=== PATIENT | male | born 1955 | race Caucasian/White ===

== ENCOUNTER 2019-09-11 | Day surgery (SDC) | payer MEDICAID, SELFPAY ==
[2019-09-10 10:40] VITALS: BMI 22.1
== END 2019-09-11 23:00 | disposition home or self-care (01) ==
LOC: GILAB 03-17 13:31
PROVIDERS: Family Provider Internal Medicine; PCP Nurse Practitioner; Visit Provider Surgery
DX: Z53.9 Procedure and treatment not carried out, unspecified reason (principal)
CPT/HCPCS: J2704; J7030

== ENCOUNTER 2019-10-13 13:29 | Emergency (ER) | payer OTHER, MEDICAID, SELFPAY ==
[2019-10-13 13:43] VITALS: BP 137/83; PULSE 60; RESP 18; TEMP 36.6; O2SAT 90; BMI 20.4
--- NOTE | 2019-10-13 14:56 | ED_ITS ---
HPI - Skin/Abscess/Foreign Bdy General: Chief complaint: General Medical Stated complaint: genital itching post tick bite Time Seen by Provider: 10/13/19 14:52 Source: patient Mode of arrival: ambulatory Limitations: no limitations History of Present Illness: HPI narrative: Patient is a 64-year-old male who presents to ED today with complaints of a tick bite to his scrotum. Patient noticed about yesterday days ago there was a tick attached to his left lower leg that he picked off and then lost it in the bed. He reports this morning when he awoke he found the tick and it was now attached to his scrotum. He states he picked it off and burnt it but is now concerned because the area has a knot . Onset (ago): hour(s) Tetanus up to date: yes Location: genitals Severity: mild Quality: pruritic Relieving factors: none Exacerbating factors: none Context: other (tick bite) Associated symptoms: Reports no associated symptoms; Deny chills or fever(s) Treatments prior to arrival: none Review of Systems Const: Denies: fever, chills, body aches, fatigue or malaise : Denies: genital pain, testicular pain, testicular mass or scrotal swelling Musc: Denies: neck pain or back pain Skin/Breast: Reports: other ( knot to scrotum ); Denies: rash Neuro: Denies: headache PFS ED PFSH: Social History (Updated 08/13/19 @ 09:34 by Yudi Reyna RN) Smoking and tobacco status: current every day smoker Physical Exam Const: COMMON NORMALS: no apparent distress, oriented x3, no limitations and alert GENERAL APPEARANCE: disheveled : OTHER: pt has a very small area of induration to L inferior scrotum with small bite abdifatah consistent with tick bite; there is no erythema/warmth; no fluctuance/drainage; no inguinal lymphadenopathy noted Neuro: COMMON NORMALS: oriented x3 SENSORIUM/ORIENTATION: Yes alert Course Vital Signs: Vital signs: Vital Signs Temperature 98.4 F 10/13/19 15:02 Pulse Rate 86 10/13/19 15:02 Respiratory Rate 16 10/13/19 15:02 Blood Pressure 137/83 10/13/19 13:43 Pulse Oximetry 96 10/13/19 15:02 Discharge Plan Discharge Patient Disposition: Home, Self-Care Clinical Impression: Tick bite of scrotum Qualifiers: Encounter type: initial encounter Qualified Code(s): S30.863A - Insect bite (nonvenomous) of scrotum and testes, initial encounter Condition: Stable Prescriptions: No Action nicotine 14 mg/24 hr Patch 24 Hour 1 patch TRANSDERMAL DAILY RF: 0 albuterol sulfate 2.5 mg /3 mL (0.083 %) Solution For Nebulization 2.5 mg INHALATION Q4H PRN (Reason: Cough) RF: 0 citalopram 40 mg Tablet 20 mg PO DAILY RF: 0 Miralax 17 gram Powder In Packet 17 g PO DAILY PRN (Reason: Constipation) RF: 0 Carafate 1 gram Tablet 1 g PO BID RF: 0 sumatriptan succinate 50 mg Tablet 50 mg PO DAILY RF: 0 trazodone 100 mg Tablet 100 mg PO DAILY RF: 0 omeprazole 20 mg Capsule,Delayed Release(Dr/Ec) 20 mg PO DAILY RF: 0 albuterol sulfate 90 mcg/actuation Hfa Aerosol Inhaler 1 inh INHALATION QID PRN (Reason: Cough) RF: 0 bupropion HCl 150 mg Tablet Extended Release 24 Hr 150 mg PO QAM RF: 0 topiramate 50 mg Tablet 50 mg PO BID RF: 0 Discharge Orders: Discharge Order (Routine); Ordered 10/13/19 Ordered By: Patti Alvarado Referrals: Freddy Wade [Family Provider] - Discharge Diet: Usual diet Discharge Activity: Resume usual activity Patient Instructions: Tick Bites, Tick Bite (ED) Discharge Date/Time: 10/13/19 15:03 Coding Level of Care Code ED Livestock Auctioneer for Oli Moise Exam Problem Focused
[2019-10-13 15:02] VITALS: PULSE 86; RESP 16; TEMP 36.9; O2SAT 96
== END 2019-10-13 15:03 | disposition home or self-care (01) ==
PROVIDERS: Emergency Provider Physician Assistant; Family Provider Internal Medicine
DX: S30.863A Insect bite (nonvenomous) of scrotum and testes, initial encounter (principal); F17.200 Nicotine dependence, unspecified, uncomplicated; W57.XXXA Bitten or stung by nonvenomous insect and other nonvenomous arthropods, initial encounter
CPT/HCPCS: 12345; 99281

== ENCOUNTER 2019-10-30 18:39 | Inpatient (IN) | payer OTHER, MEDICAID, SELFPAY ==
[2019-10-30] VITALS (18 sets, daily range): BP systolic 94–178; BP diastolic 46–96; PULSE 82–118; RESP 16–36; TEMP 37–37.1; O2SAT 85–100
--- NOTE | 2019-10-30 18:47 | XR_ITS ---
WS: [id number] PORTABLE CHEST HISTORY: cough COMPARISON: 06/15/2019 Hyperinflated lungs with chronic emphysema. Pulmonary vasculature is normal. Blunting of the costophr enic angles bilaterally. There is very subtle haziness and increasing opacification in the central RI GHT lung. Cardiac size: Normal. Mediastinum/Aorta: Normal mediastinum. Chronic deformity of the ribs in the mid LEFT thorax. XR/XR chest 1V portable [id number] IMPRESSION: 1. Chronic emphysema. 2. Suspect developing pneumonitis or pneumonia central RIGHT lung.
--- NOTE | 2019-10-30 18:53 | W.ED.SOB ---
HPI - SOB/Dyspnea General: Chief Complaint: Shortness of Breath/Dyspnea Stated Complaint: sob Time Seen by Provider: 10/30/19 18:44 History of Present Illness: HPI Narrative: Naren Pritchard is a 64-year-old male who comes in severe respiratory distress. He is unable to provide much history. When asked what he feels is causing his shortness of breath he shouts COPD and pneumonia. All further history is taken from old charts. Review of Systems General: Reports: ROS unobtainable due to medical condition (Respiratory distress) PFS ED PFSH: Medical History Asthma COPD (chronic obstructive pulmonary disease) Depression GERD (gastroesophageal reflux disease) Hepatitis Hypertension Peptic ulcer disease Surgical History Hx of appendectomy Social History Smoking and tobacco status: current every day smoker Physical Exam Const: COMMON NORMALS: oriented x3 EXAM LIMITATIONS: no altered mental status GENERAL APPEARANCE: cooperative, well kempt, in distress, ill appearing and frail appearing HENMT: COMMON NORMALS: normocephalic, head/scalp atraumatic, hearing grossly normal bilaterally, external ears normal, EAC's normal, external nose normal and moist oral mucous membranes HEAD & SCALP: normal to inspection, normocephalic and atraumatic FACE & SINUS: normal facial exam and face symmetric NOSE: external nose normal and nares normal EXTERNAL EAR: Yes external ears normal EXTERNAL AUDITORY CANAL: EAC's normal MOUTH: oral and palatal mucosa normal and tongue normal Eye: COMMON NORMALS: PERRL, EOMs intact bilaterally, conjunctivae normal and no scleral icterus GENERAL EYE: normal appearance of both eyes and normal light reflex CONJUNCTIVA: Yes conjunctivae normal SCLERA: sclerae normal CORNEA: Yes corneas normal PUPIL: Yes PERRL DIRECT OPHTHALMOSCOPY: Yes normal light reflex Neck/C-Spine: COMMON NORMALS: full ROM, no lymphadenopathy, supple, no meningeal signs and no JVD GENERAL: Yes normal visual inspection and Yes trachea midline CERVICAL SPINE: Yes cervical ROM normal Chest: COMMONS NORMALS: inspection of chest normal and palpation of chest normal Resp: EFFORT & INSPECTION: Yes respiratory distress, Yes grunting, Yes actively coughing, Yes uses accessory muscles and Yes audible wheezes AUSCULTATION: rhonchi, wheezes and diminished lung sounds Cardio: COMMON NORMALS: no JVD, regular rhythm, S1 normal heart sound, S2 normal heart sound, no gallops, no clicks, no murmurs and no rub JUGULAR VENOUS DISTENTION: no JVD RATE: tachycardic RHYTHM: regular rhythm HEART SOUNDS: S1 normal and S2 normal GI: COMMON NORMALS: soft to palpation, non-tender, no hepatosplenomegaly and no masses INSPECTION: Yes normal to inspection PALPATION: Yes soft and Yes no hepatosplenomegaly : COMMON NORMALS: Yes no CVA tenderness BLADDER/KIDNEY EXAM: Yes no CVA tenderness Back/Pelvis: COMMON NORMALS: no CVA tenderness, thoracic and lumbar spine normal to inspection, no thoracic nor lumbar tenderness and thoraco-lumbar ROM normal Extremity: COMMON NORMALS: normal to inspection, full ROM, normal capillary refill, no joint enlargement, no clubbing, cyanosis or edema and no calf tenderness Neuro: COMMON NORMALS: oriented x3, CN's II-XII intact bilaterally, moves all extremities, no focal motor deficits and no sensory deficits noted MENINGEAL SIGNS: Yes no meningeal signs Psych: COMMON NORMALS: mental status grossly normal, thought process normal, cooperative, affect normal, speech normal and activity/motor behavior normal APPEARANCE: Yes well kempt SPEECH: Yes normal speech THOUGHT PROCESS: normal thought process Skin: COMMON NORMALS: no rashes or lesions noted, skin turgor normal, no jaundice, no petechiae and no mottling GENERAL SKIN EXAM: no rashes or lesions noted and turgor normal Course Vital Signs: Vital signs: Vital Signs Temperature 98.6 F 10/30/19 18:42 Pulse Rate 88 10/30/19 20:30 Respiratory Rate 21 H 10/30/19 20:30 Blood Pressure 112/46 10/30/19 20:30 Pulse Oximetry 97 10/30/19 20:30 MDM - SOB/Dyspnea MDM Narrative: Medical decision making narrative: Mr. Pritchard is a 64-year-old male who came in in respiratory distress. He is doing much better now on BiPAP. I believe he will need BiPAP for a few more hours to completely correct his acidosis. He agrees to admission. I reviewed the case with Dr. Pham who is agreeable to admission. The patient will be kept on BiPAP admitted to the [facility] floor. Further care be dictated by Dr. Pham. Lab Data: Attestation: I reviewed the patient's lab results. Labs: Lab Results 10/30/19 10/30/19 10/30/19 Range/Units 18:44 18:53 18:53 WBC 8.7 (4.0-10.0) 10^3/ uL RBC 5.07 (4.1-5.3) 10^6/u L Hgb 14.7 (11.7-16.6) g/dL Hct 46.9 (42.0-52.0) % MCV 92.5 (80-94) fL MCH 29.0 (28.0-34.0) pg MCHC 31.3 (30.0-36.0) g/dL RDW 13.0 (12.1-15.1) % Plt Count 285 (130-400) 10^3/c mm MPV 9.7 (7.4-10.4) fL Neut % (Auto) 66.4 % Lymph % (Auto) 18.6 % [place] % (Auto) 12.0 % Eos % (Auto) 1.7 % Baso % (Auto) 1.0 % Neut # (Auto) 5.8 (1.8-7.7) 10^3/u L Lymph # (Auto) 1.6 (0.8-4.8) 10^3/u L [place] # (Auto) 1.0 H (0.2-0.9) 10^3/u L Eos # (Auto) 0.2 (0.0-0.8) 10^3/u L Baso # (Auto) 0.1 (0.0-0.1) 10^3/u L Nucleated RBC % (a uto) 0 % Nucleated RBCs # 0.0 /100WBC Specimen Type Arterial Sample Site Radial, right ABG pH 7.22 L (7.35-7.45) ABG pCO2 55.6 H (35-45) mmHg ABG pO2 423.0 H* (80.0-100.0) mmH g ABG HCO3 22.8 (22-26) mmol/L ABG Base Excess -5.7 L (-2.0-2.0) mmol/ L Italo Test Pos Hematocrit 45.7 (42-52) % O2 Delivery Device Nrb O2 Liters/Min 15.0 % FiO2 % PEEP cmH20 Pressure Support cmH2O Simplex Operator ID monro Sodium 140 (136-145) mmol/L Potassium 4.0 (3.5-5.1) mmol/L Chloride 102 (98-107) mmol/L Carbon Dioxide 25 (22-29) mmol/L Anion Gap 17.0 (5-19) BUN 14 (8-23) mg/dL Creatinine 1.2 (0.7-1.2) mg/dL GFR Calculation 61.1 L (90-130) mL/min Glucose 125 H (65-115) mg/dL Calculated Osmolal ity 288 (285-295) mOsm/k g Lactic Acid (0.5-2.2) mmol/L Calcium 10.0 (8.5-10.5) mg/dL Magnesium 2.0 (1.7-2.3) mg/dL Total Bilirubin 0.2 (0.15-1.2) mg/dL AST 21 (0-40) U/L ALT 13 (0-41) U/L Alkaline Phosphata se 83 (40-130) IU/L Troponin T Baselin e (0-15) ng/mL NT-Pro-B Natriuret Pep 101 (0-125) pg/mL Total Protein 7.8 (6.6-8.7) g/dL Albumin 4.4 (3.5-5.2) g/dL Globulin 3.4 (1.3-4.6) g/dL Influenza Type A A g (Negative) Influenza Type B A g (Negative) 10/30/19 10/30/19 10/30/19 Range/Units 18:53 18:53 18:55 WBC (4.0-10.0) 10^3/ uL RBC (4.1-5.3) 10^6/u L Hgb (11.7-16.6) g/dL Hct (42.0-52.0) % MCV (80-94) fL MCH (28.0-34.0) pg MCHC (30.0-36.0) g/dL RDW (12.1-15.1) % Plt Count (130-400) 10^3/c mm MPV (7.4-10.4) fL Neut % (Auto) % Lymph % (Auto) % [place] % (Auto) % Eos % (Auto) % Baso % (Auto) % Neut # (Auto) (1.8-7.7) 10^3/u L Lymph # (Auto) (0.8-4.8) 10^3/u L [place] # (Auto) (0.2-0.9) 10^3/u L Eos # (Auto) (0.0-0.8) 10^3/u L Baso # (Auto) (0.0-0.1) 10^3/u L Nucleated RBC % (a uto) % Nucleated RBCs # /100WBC Specimen Type Sample Site ABG pH (7.35-7.45) ABG pCO2 (35-45) mmHg ABG pO2 (80.0-100.0) mmH g ABG HCO3 (22-26) mmol/L ABG Base Excess (-2.0-2.0) mmol/ L Italo Test Hematocrit (42-52) % O2 Delivery Device O2 Liters/Min % FiO2 % PEEP cmH20 Pressure Support cmH2O Simplex Operator ID Sodium (136-145) mmol/L Potassium (3.5-5.1) mmol/L Chloride (98-107) mmol/L Carbon Dioxide (22-29) mmol/L Anion Gap (5-19) BUN (8-23) mg/dL Creatinine (0.7-1.2) mg/dL GFR Calculation (90-130) mL/min Glucose (65-115) mg/dL Calculated Osmolal ity (285-295) mOsm/k g Lactic Acid 1.5 (0.5-2.2) mmol/L Calcium (8.5-10.5) mg/dL Magnesium (1.7-2.3) mg/dL Total Bilirubin (0.15-1.2) mg/dL AST (0-40) U/L ALT (0-41) U/L Alkaline Phosphata se (40-130) IU/L Troponin T Baselin e 7 (0-15) ng/mL NT-Pro-B Natriuret Pep (0-125) pg/mL Total Protein (6.6-8.7) g/dL Albumin (3.5-5.2) g/dL Globulin (1.3-4.6) g/dL Influenza Type A A g Negative (Negative) Influenza Type B A g Negative (Negative) 10/30/19 Range/Units 19:26 WBC (4.0-10.0) 10^3/ uL RBC (4.1-5.3) 10^6/u L Hgb (11.7-16.6) g/dL Hct (42.0-52.0) % MCV (80-94) fL MCH (28.0-34.0) pg MCHC (30.0-36.0) g/dL RDW (12.1-15.1) % Plt Count (130-400) 10^3/c mm MPV (7.4-10.4) fL Neut % (Auto) % Lymph % (Auto) % [place] % (Auto) % Eos % (Auto) % Baso % (Auto) % Neut # (Auto) (1.8-7.7) 10^3/u L Lymph # (Auto) (0.8-4.8) 10^3/u L [place] # (Auto) (0.2-0.9) 10^3/u L Eos # (Auto) (0.0-0.8) 10^3/u L Baso # (Auto) (0.0-0.1) 10^3/u L Nucleated RBC % (a uto) % Nucleated RBCs # /100WBC Specimen Type Arterial Sample Site Brachial, left ABG pH 7.31 L (7.35-7.45) ABG pCO2 44.4 (35-45) mmHg ABG pO2 54.9 L (80.0-100.0) mmH g ABG HCO3 22.4 (22-26) mmol/L ABG Base Excess -3.9 L (-2.0-2.0) mmol/ L Italo Test Pos Hematocrit 43.1 (42-52) % O2 Delivery Device Bipap O2 Liters/Min % FiO2 21.0 % PEEP 8.0 cmH20 Pressure Support 16.0 cmH2O Simplex Operator ID dilki Sodium (136-145) mmol/L Potassium (3.5-5.1) mmol/L Chloride (98-107) mmol/L Carbon Dioxide (22-29) mmol/L Anion Gap (5-19) BUN (8-23) mg/dL Creatinine (0.7-1.2) mg/dL GFR Calculation (90-130) mL/min Glucose (65-115) mg/dL Calculated Osmolal ity (285-295) mOsm/k g Lactic Acid (0.5-2.2) mmol/L Calcium (8.5-10.5) mg/dL Magnesium (1.7-2.3) mg/dL Total Bilirubin (0.15-1.2) mg/dL AST (0-40) U/L ALT (0-41) U/L Alkaline Phosphata se (40-130) IU/L Troponin T Baselin e (0-15) ng/mL NT-Pro-B Natriuret Pep (0-125) pg/mL Total Protein (6.6-8.7) g/dL Albumin (3.5-5.2) g/dL Globulin (1.3-4.6) g/dL Influenza Type A A g (Negative) Influenza Type B A g (Negative) Imaging Data^: CXR: My impression: Hyperinflation, COPD but no acute pulmonary infiltrates. EKG Data^: EKG 1: Attestation: I personally reviewed and interpreted this EKG as follows: EKG Interpretation Date: 10/30/19 EKG interpretation time: 18:58 Interpretation: Sinus Tach @ 104, No acute ST/T wave changes. Baseline artifact. Discharge Plan Discharge Patient Disposition: Placed in Observation Clinical Impression: Acute exacerbation of chronic obstructive airways disease, Acute hypercapnic respiratory failure Condition: Stable Prescriptions: No Action nicotine 14 mg/24 hr Patch 24 Hour 1 patch TRANSDERMAL DAILY RF: 0 albuterol sulfate 2.5 mg /3 mL (0.083 %) Solution For Nebulization 2.5 mg INHALATION Q4H PRN (Reason: Cough) RF: 0 citalopram 40 mg Tablet 20 mg PO DAILY RF: 0 Miralax 17 gram Powder In Packet 17 g PO DAILY PRN (Reason: Constipation) RF: 0 Carafate 1 gram Tablet 1 g PO BID RF: 0 sumatriptan succinate 50 mg Tablet 50 mg PO DAILY RF: 0 trazodone 100 mg Tablet 100 mg PO DAILY RF: 0 omeprazole 20 mg Capsule,Delayed Release(Dr/Ec) 20 mg PO DAILY RF: 0 albuterol sulfate 90 mcg/actuation Hfa Aerosol Inhaler 1 inh INHALATION QID PRN (Reason: Cough) RF: 0 bupropion HCl 150 mg Tablet Extended Release 24 Hr 150 mg PO QAM RF: 0 topiramate 50 mg Tablet 50 mg PO BID RF: 0 Referrals: Freddy Wade [Family Provider] - Coding Level of Care Code ED Malted Milk Supervisor for Chg Fwd Exam Comprehensive
[2019-10-30 18:58] LABS: ABG PCO2 55.6 mmHg (35-45); ABG PH Result 7.22 (7.35-7.45); Arterial Blood Gas Hematocrit 45.7 % (42-52); Base Excess ABG -5.7 mmol/L (-2.0-2.0); Blood Gas Allen Test Pos; Blood Gas Sample Site Radial, right; Blood Gas Sample Type Arterial; HCO3 ABG 22.8 mmol/L (22-26); Oxygen Device NRB
[2019-10-30] MEDS: ondansetron 2 mg/ML SDV 2 mL 4 MG IVP (19:02)
[2019-10-30] MEDS: levofloxacin-dextrose 5 % 750 MG/150 ML PREMIX 150 MG IV (19:02)
[2019-10-30] MEDS: sodium chloride 0.9% 1,000 ML 100 ML IV (19:03)
[2019-10-30] MEDS: ipratropium-albuterol 3 mL Neb 9 ML INHALATION (19:04)
[2019-10-30 19:09] LABS: Basophils # 0.1 10^3/uL (0.0-0.1); Eosinophils # 0.2 10^3/uL (0.0-0.8); Eosinophils % 1.7 %; Hematocrit 46.9 % (42.0-52.0); Hemoglobin 14.7 g/dL (11.7-16.6); Lymphocytes # 1.6 10^3/uL (0.8-4.8); Lymphocytes % 18.6 %; Mean Corpuscular HGB Conc 31.3 g/dL (30.0-36.0); Mean Corpuscular Volume 92.5 fL (80-94); Mean Platelet Volume 9.7 fL (7.4-10.4); Neutrophils # 5.8 10^3/uL (1.8-7.7); Neutrophils % 66.4 %; Nucleated Red Blood Cells % 0 %; Platelet Count 285 10^3/cmm (130-400); Red Blood Count 5.07 10^6/uL (4.1-5.3); White Blood Count 8.7 10^3/uL (4.0-10.0)
[2019-10-30 19:17] LABS: Lactic Sepsis W/Reflex 1.5 mmol/L (0.5-2.2)
[2019-10-30 19:27] LABS: Alanine Aminotransferase 13 U/L (0-41); Albumin Level 4.4 g/dL (3.5-5.2); Alkaline Phosphatase 83 IU/L (40-130); Aspartate Amino Transferase 21 U/L (0-40); Blood Urea Nitrogen 14 mg/dL (8-23); Carbon Dioxide 25 mmol/L (22-29); Chloride 102 mmol/L (98-107); Globulin 3.4 g/dL (1.3-4.6); Glomerular Filtration Rate 61.1 mL/min (90-130); Glucose 125 mg/dL (65-115); NT Pro B Type Natriuretic Pept 101 pg/mL (0-125); Osmolality Calculated 288 mOsm/kg (285-295); Sodium 140 mmol/L (136-145); Total Bilirubin 0.2 mg/dL (0.15-1.2); Total Protein 7.8 g/dL (6.6-8.7)
--- NOTE | 2019-10-30 19:29 | ECG_ITS ---
Measurements Intervals [place] Rate: 104 P: 72 [place]: 188 QRS: 86 QRSD: 92 T: 68 QT: 308 QTc: 407 SINUS TACHYCARDIA Compared to ECG 06/15/2019 23:00:54 Sinus rhythm no longer present Electronically Signed On 10-31-2019 9:32:25 CDT by Concetta Camacho M.D. [id number]
[2019-10-30 19:59] LABS: ABG PCO2 44.4 mmHg (35-45); ABG PH Result 7.31 (7.35-7.45); Arterial Blood Gas Hematocrit 43.1 % (42-52); Base Excess ABG -3.9 mmol/L (-2.0-2.0); Blood Gas Allen Test Pos; Blood Gas Sample Site Brachial, left; Blood Gas Sample Type Arterial; HCO3 ABG 22.4 mmol/L (22-26); Oxygen Device BIPAP; PO2 ABG 54.9 mmHg (80.0-100.0)
[2019-10-30 20:19] LABS: Influenza A by IFA Negative (Negative); Influenza B by IFA Negative (Negative)
[2019-10-30 20:37] LABS: Troponin(5th) Baseline 7 ng/mL (0-15)
--- NOTE | 2019-10-30 20:47 | P.HP_ITS ---
Providers/Chief Complaint Chief Complaint: sob History of Present Illness Naren Pritchard is a 64 year old male who carries diagnosis of gastric ulcer, and his medic COPD non-oxygen dependent, active smoker, went to [facility] on his in first week of September came in with chief complaint of worsening shortness of breath, coughing up blood. Patient is stating that he was in his usual state of health i.e. independent for daily activities, smokes 5 to 6 cigarettes a day, uses his COPD inhaler and as needed MDIs, until 3 days ago when he started having shortness of breath, he could hardly take 10-15 steps without getting short of breath, he is coughing along with blood tinged phlegm, he has noticed weight loss, night sweats, highest temperature 101 and was 92.7 (temperature taken by the patient at home) he is stating that these are similar symptoms when he had severe pneumonia and septic shock in . Patient is stating that his had flu that were diagnosed by her primary care, he is not sure if coronavirus was tested. Diagnostics in ER revealed type II respiratory failure, respiratory distress, his respiratory distress improved with BiPAP, he was in severe respiratory acidosis, ER physician was not suspecting covid, but because of fever, hemoptysis, recent travel to [place] I have alerted charge ER nurse to do covid testing, removed his BiPAP because he is awake and alert without active respiratory stress, and avoid using BiPAP until he is in airborne isolation in ICU. I have examined the patient with all possible precautionary measures. Chest x-ray however is showing similar changes which are present on his previous x-ray taken last year I am suspecting a spiculated nodule on left hilar region, will get CT chest Review of Systems Const: Reports: fever, chills, body aches, fatigue and malaise Eyes: Denies: change in vision ENMT: Denies: throat pain or uvular edema Card: Reports: lightheadedness, shortness of breath on exertion and shortness of breath when lying down; Denies: chest pain or palpitations Resp: Reports: shortness of breath, productive cough, wheezing, pain on inspiration, change in phlegm color and coughing up blood GI: Denies: abdominal pain, nausea or vomiting : Denies: flank pain or difficulty urinating Musc: Denies: neck pain Skin/Breast: Denies: rash Neuro: Denies: headache or slurred speech Psych: Reports: change in appetite; Denies: anxiety or memory loss Endo: Denies: excessive urination Dio/Lymph: Denies: easy bruising All/Imm: Denies: hives Medications/Allergies Allergies Allergy/AdvReac Type Severity Reaction Status Date / Time No Known Allergies Allergy Verified 10/30/19 18:50 PFSH Acute PFSH: Medical History Asthma COPD (chronic obstructive pulmonary disease) Depression Gastric ulcer GERD (gastroesophageal reflux disease) POSTOPERATIVE DIAGNOSES: 1. Gastric ulcers in the antrum, biopsied with cold biopsy forceps 2. 1.5 cm the sessile polyp in the cecum removed piecemeal with a hot snare 3. 0.75 cm sessile polyp adjacent to the large polyp removed with hot snare 4. 6 x 6 cm lipoma right upper back Hepatitis Hepatitis C Hx of colonic polyps Hypertension Peptic ulcer disease Surgical History Hx of appendectomy Status post excision of lipoma Family History (Updated 10/30/19 @ 21:28 by Janessa Pham MD) Denies family history of Diabetes Hypertension Social History (Updated 10/30/19 @ 21:28 by Janessa Pham MD) Smoking and tobacco status: current every day smoker cigarettes Number of cigarettes per day: 1-5 Alcohol intake: never Substance/Drug Use: never Lives independently: Yes Household members: spouse Housing: House Vitals/I&O/Wt Last Vital Signs Temp 98.6 F 10/30/19 18:42 Pulse 88 10/30/19 20:30 Resp 21 H 10/30/19 20:30 BP 112/46 10/30/19 20:30 Pulse Ox 97 10/30/19 20:30 Weight last 48 hrs Weight 52.163 kg Physical Exam Narrative: EXAM NARRATIVE: Frail elderly male Unkempt appearance Using respiratory sensory muscles on removal of BiPAP High risk for intubation S1, S2 no tachycardia no signs of heart failure Bilateral expiratory wheezing on posterior lung auscultation Abdomen soft, nondistended, nontender, bowel sound present Neurologically nonfocal exam EOMI, PERRLA Lower extremity does not show any sign ischemia getting ulcer Anxious mood Data : 10/30/19 18:53 10/30/19 18:53 Micro: Microbiology 10/30/19 18:54 Blood Culture - Preliminary Blood SPECIMEN COLLECTED 10/30/19 18:53 Blood Culture - Preliminary Blood SPECIMEN COLLECTED A&P Assessment and plan (1) Acute exacerbation of chronic obstructive airways disease: Status: Acute (2) Acute hypercapnic respiratory failure: Status: Acute (3) GERD (gastroesophageal reflux disease): Status: Acute (4) Peptic ulcer disease: Status: Acute (5) Hemoptysis: Status: Acute Additional A&P Information Acute hypoxic hypercarbic/type II respiratory failure due to active smoking (suspicion high for Covid) Patient was desaturating on room air His severe respiratory acidosis improved with BiPAP Chest x-ray is not showing any new changes on comparison from previous x-rays Considering history of hemoptysis and weight loss I will get CTA chest Patient is not septic, afebrile, no leukocytosis however endorsing constitutional symptoms, flu panel negative Ordered covid testing, he visited [facility] in first week of September along his , his suffered from flulike symptoms Airborne isolation in ICU, I would use azithromycin for now Avoid using BiPAP enroute to ICU Patient is full code Acute onset of hemoptysis Differentials would include severe bronchitis versus malignancy because of active smoking status Greater than [id number] smoking history Hilar lymphadenopathy We will follow-up with CTA chest Currently he is able to protect his airways no active respiratory distress after use of BiPAP for half an hour He will be considered high risk for intubation Gastric ulcer disease: Continue Protonix and sucralfate Active smoker: Smokes half a pack a day Refusing use of nicotine patches Counseled on smoking cessation, risks and complications Full code: DVT prophylaxis: Lovenox Regular diet Attestations Medical Necessity Statement*: Needs inpatient care in ICU because of active respiratory distress, hypercapnic respiratory failure and suspicion for covid infection Time Spent in Patient Care: 45 Coding Level of Care Code Acute Debug Technician for Oli Moise Diagnoses Acute exacerbation of chronic obstructive airways disease J44.1 Acute hypercapnic respiratory failure J96.02 GERD (gastroesophageal reflux disease) K21.9 Peptic ulcer disease K27.9 Hemoptysis R04.2
[2019-10-30 22:22] LABS: Troponin 5 2HR 7.79 ng/mL (0-15); Troponin 5 2HR Delta 0.79 ABS# (0-10)
[2019-10-30] MEDS: enoxaparin 40 mg/0.4 mL Syringe SUBCUT (23:09)
[2019-10-30 23:49] LABS: Ferritin 132 ng/mL (30-400); Lactate Dehydrogenase 182 U/L (135-225)
[2019-10-31] VITALS (41 sets, daily range): BP systolic 101–150; BP diastolic 49–84; PULSE 71–105; RESP 16–34; TEMP 36.7–37.2; O2SAT 91–99
[2019-10-31 04:50] LABS: Basophils % 0.3 %; Hematocrit 43.1 % (42.0-52.0); Hemoglobin 13.6 g/dL (11.7-16.6); Lymphocytes # 0.4 10^3/uL (0.8-4.8); Lymphocytes % 11.1 %; Mean Corpuscular HGB Conc 31.6 g/dL (30.0-36.0); Mean Corpuscular Hemoglobin 29.1 pg (28.0-34.0); Mean Corpuscular Volume 92.1 fL (80-94); Monocytes # 0.2 10^3/uL (0.2-0.9); Monocytes % 4.9 %; Neutrophils # 3.2 10^3/uL (1.8-7.7); Neutrophils % 83.4 %; Nucleated Red Blood Cells % 0 %; Platelet Count 250 10^3/cmm (130-400); Red Blood Count 4.68 10^6/uL (4.1-5.3); Red Cell Distribution Width 12.9 % (12.1-15.1); White Blood Count 3.9 10^3/uL (4.0-10.0)
--- NOTE | 2019-10-31 04:54 | ECG_ITS ---
Measurements Intervals [place] Rate: 88 P: 81 [place]: 195 QRS: 90 QRSD: 92 T: 71 QT: 335 QTc: 406 SINUS RHYTHM Compared to ECG 06/15/2019 23:00:54 No significant changes Electronically Signed On 10-31-2019 9:40:19 CDT by Concetta Camacho M.D. [id number]
--- NOTE | 2019-10-31 05:05 | PC.NURSE ---
0425 biochemistry technician noticed change in EKG rhythm. intermitted beats dropped. EKG obtained showing sinus rhythm. patient denies pain at this time but does state that he is short of breath. notified. will continue to monitor.
[2019-10-31 05:09] LABS: Alanine Aminotransferase 10 U/L (0-41); Alkaline Phosphatase 77 IU/L (40-130); Aspartate Amino Transferase 16 U/L (0-40); Blood Urea Nitrogen 16 mg/dL (8-23); Calcium 9.9 mg/dL (8.5-10.5); Carbon Dioxide 24 mmol/L (22-29); Chloride 105 mmol/L (98-107); Glomerular Filtration Rate 67.6 mL/min (90-130); Glucose 152 mg/dL (65-115); Osmolality Calculated 287 mOsm/kg (285-295); Sodium 139 mmol/L (136-145); Total Bilirubin 0.2 mg/dL (0.15-1.2)
[2019-10-31 05:13] LABS: Troponin 5 6HR 7.48 ng/mL (0-15)
[2019-10-31 05:18] LABS: ABG PH Result 7.31 (7.35-7.45); Arterial Blood Gas Hematocrit 43.8 % (42-52); Base Excess ABG -3.3 mmol/L (-2.0-2.0); Blood Gas Allen Test Pos; Blood Gas Sample Site Radial, right; Blood Gas Sample Type Arterial; HCO3 ABG 23.1 mmol/L (22-26); Oxygen Device NC; PO2 ABG 90.7 mmHg (80.0-100.0)
[2019-10-31 05:24] LABS: Troponin 5 6HR Delta 0.48 ng/L (0-12)
--- NOTE | 2019-10-31 08:54 | P.PN_ITS ---
Subjective Subjective: Interval history: Patient reports feeling much better this morning. Reports that he was in the [place] from October 07 until as his had brain surgery. Reports that 4 days ago he started having shortness of breath and 2 days ago noted some specks of blood in his chronic yellow phlegm productive cough which he reports slightly increased in quantity. He was eladio gnosed with acute COPD exacerbation. He denies chest pain or abdominal pain this morning. He is on nasal cannula and able to talk in full sentences. He has very minimal expiratory wheezing throughout. Vitals/I&O/Wt Last Vital Signs Temp 98.9 F 10/31/19 08:00 Pulse 79 10/31/19 08:00 Resp 19 H 10/31/19 08:00 BP 129/74 10/31/19 08:00 Pulse Ox 97 10/31/19 08:00 10/30/19 10/31/19 10/31/19 22:59 06:59 14:59 Intake Total 150 / 150 220 / 220 Output Total 250 / 250 300 / 300 Balance 150 / 150 -250 / -100 -80 / -80 Weight last 48 hrs Weight 52.163 kg Physical Exam Const: COMMON NORMALS: no apparent distress and oriented x3 Resp: COMMON NORMALS: normal respiratory effort OTHER: Very minimal expiratory wheezing throughout with overall decreased air movement Cardio: COMMON NORMALS: regular rate, regular rhythm and S2 normal heart sound RATE: regular rate RHYTHM: regular rhythm HEART SOUNDS: S2 normal OTHER: No lower extremity edema GI: COMMON NORMALS: normal to inspection, nondistended, normoactive bowel sounds, soft to palpation and non-tender PALPATION: Yes soft Neuro: COMMON NORMALS: oriented x3 and no focal motor deficits Data : 10/31/19 04:30 10/31/19 04:30 Micro: Microbiology 10/30/19 18:54 Blood Culture - Preliminary Blood SPECIMEN COLLECTED 10/30/19 18:53 Blood Culture - Preliminary Blood SPECIMEN COLLECTED A&P Assessment and plan (1) Acute exacerbation of chronic obstructive airways disease: Status: Acute (2) Acute hypercapnic respiratory failure: Status: Acute (3) GERD (gastroesophageal reflux disease): Status: Acute (4) Peptic ulcer disease: Status: Acute (5) Hemoptysis: Status: Acute Additional A&P Information Acute bronchitis. Present on admission Acute hypoxic hypercarbic/type II respiratory failure due to active smoking (suspicion high for Covid) Patient was desaturating on room air His severe respiratory acidosis improved with BiPAP Chest x-ray is not showing any new changes on comparison from previous x-rays Considering history of hemoptysis and weight loss I will get CTA chest Patient is not septic, afebrile, no leukocytosis however endorsing constitutional symptoms, flu panel negative Ordered covid testing, he visited [facility] in first week of September along his , his suffered from flulike symptoms Airborne isolation in ICU, I would use azithromycin for now Avoid using BiPAP enroute to ICU Patient is full code Acute onset of hemoptysis Differentials would include severe bronchitis versus malignancy because of active smoking status Greater than 10-dbyt-gxor smoking history Hilar lymphadenopathy We will follow-up with CTA chest Currently he is able to protect his airways no active respiratory distress after use of BiPAP for half an hour He will be considered high risk for intubation Gastric ulcer disease: Continue Protonix and sucralfate Active smoker: Smokes half a pack a day Refusing use of nicotine patches Counseled on smoking cessation, risks and complications Full code: DVT prophylaxis: Lovenox Regular diet PLAN: We will change azithromycin to Levaquin for treatment of acute bronchitis. Awaiting COVID 19 test result and will keep patient in ICU for appropriate isolation for now. Continue steroids and breathing treatments. Discussed regarding importance of smoking cessation. Patient voiced understanding and reports that he will quit. Attestations Medical Necessity Statement*: Patient with respiratory failure and concern for coronavirus infection requires close ICU monitoring and treatment Coding Level of Care Code Acute Medical/Surgery Registered Nurse for Oli Moise Diagnoses Acute exacerbation of chronic obstructive airways disease J44.1 Acute hypercapnic respiratory failure J96.02 GERD (gastroesophageal reflux disease) K21.9 Peptic ulcer disease K27.9 Hemoptysis R04.2
[2019-10-31] MEDS: albuterol 8 gm MDI 2 PUFF INHALATION ×2 (08:56→21:01)
[2019-10-31] MEDS: pantoprazole DR 40 mg Tablet PO (09:16)
[2019-10-31] MEDS: topiramate 25 mg Tablet 50 MG PO ×2 (09:16→18:24)
[2019-10-31] MEDS: citalopram 20 mg Tablet PO (09:16)
[2019-10-31] MEDS: predniSONE 20 mg Tablet 40 MG PO (09:16)
[2019-10-31] MEDS: sucralfate 1 gm Tablet PO ×2 (09:16→18:24)
[2019-10-31] MEDS: levofloxacin-dextrose 5 % 750 MG/150 ML PREMIX 150 MG IV (11:14)
[2019-10-31 15:53] LABS: Coronavirus Lab Test PTC SEE COMMENTS
[2019-10-31] MEDS: enoxaparin 40 mg/0.4 mL Syringe SUBCUT (21:36)
[2019-11-01] VITALS (9 sets, daily range): BP systolic 114–150; BP diastolic 58–84; PULSE 69–98; RESP 16–20; TEMP 36.7–37.3; O2SAT 90–99
[2019-11-01] MEDS: albuterol 8 gm MDI 2 PUFF INHALATION ×3 (02:01→13:17)
[2019-11-01] MEDS: predniSONE 20 mg Tablet 40 MG PO (08:45)
[2019-11-01] MEDS: sucralfate 1 gm Tablet PO (08:45)
[2019-11-01] MEDS: pantoprazole DR 40 mg Tablet PO (08:45)
[2019-11-01] MEDS: citalopram 20 mg Tablet PO (08:45)
[2019-11-01] MEDS: levofloxacin-dextrose 5 % 750 MG/150 ML PREMIX 150 MG IV (08:46)
--- NOTE | 2019-11-01 10:37 | PM.DCS ---
Discharge Providers Date of Admission: 10/30/19 20:47 Date of Discharge: November 01, 2019 Attending Provider at Admission: Janessa Pham MD Attending Provider at Discharge: Nikko Barrett MD Diagnoses at Discharge Discharge Diagnosis (1) Acute exacerbation of chronic obstructive airways disease: Status: Acute (2) Acute hypercapnic respiratory failure: Status: Acute (3) GERD (gastroesophageal reflux disease): Status: Acute (4) Peptic ulcer disease: Status: Acute (5) Hemoptysis: Status: Acute (6) Community acquired pneumonia: Status: Acute Reason for Visit Reason for Visit: Reason For Visit: sob Hospital Course Discharge Summary: Patient with longtime smoking history presents with shortness of breath and cough and diagnosed with acute hypercapnic respite failure secondary to acute COPD exacerbation and what appears to be community-acquired pneumonia. Patient was treated with bronchodilators as well as Levaquin and gradually improved and this morning reports feeling much better and strong enough to be dismissed home. He is appetite is improved and he ambulates without difficulty. We had extensive discussion regarding importance of smoking cessation. Patient voiced understanding and reports that he has nicotine patches at home and will discuss with his doctor in case if he needs more. Patient ran out of MDI albuterol and was using mostly nebulized treatment. Tiotropium as well as Advair was added. I will request outpatient follow-up with Dr. Walker. We will continue Levaquin for 7 more days. Home oxygen evaluation will be performed prior to discharge and patient is well aware that he cannot smoke while using oxygen or being in the same room where oxygen is stored. Physical Exam Const: COMMON NORMALS: no apparent distress and oriented x3 Resp: COMMON NORMALS: normal respiratory effort and clear to auscultation bilaterally AUSCULTATION: clear to auscultation bilaterally OTHER: Overall decreased air movement but much improved. Cardio: COMMON NORMALS: regular rate, regular rhythm and S2 normal heart sound RATE: regular rate RHYTHM: regular rhythm HEART SOUNDS: S2 normal OTHER: No lower extremity edema GI: COMMON NORMALS: normal to inspection, nondistended, normoactive bowel sounds, soft to palpation and non-tender PALPATION: Yes soft Neuro: COMMON NORMALS: oriented x3 and no focal motor deficits Discharge Data Data Completed and Pending: Completed Studies During Hospitalization Category Date Time Status XR chest 1V soco ble 35652 Stat Exams 10/30/19 18:47 Completed Pending at discharge Category Date Time Status Blood Culture Sta t Lab 10/30/19 18:54 Results Labs from last 24 hours 10/30/19 22:09 Nasal/Oral COVID-1 9 PCR See comments Vitals: Last Vital Signs Temp 98.5 F 11/01/19 07:17 Pulse 90 11/01/19 08:45 Resp 18 11/01/19 08:45 BP 150/84 11/01/19 07:17 Pulse Ox 98 11/01/19 08:45 Discharge Plan Discharge Patient Disposition: Home, Self-Care Condition: Stable Prescriptions: New Spiriva with HandiHaler 18 mcg Capsule, W/Inhalation Device 18 mcg inhalation DAILY.RESPIRATORY Qty: 1 RF: 0 fluticasone propion-salmeterol [Advair Diskus] 250-50 mcg/dose Blister With Device 1 puff inhalation BID.RESPIRATORY Qty: 1 RF: 0 levofloxacin [Levaquin] 750 mg tablet 750 mg PO DAILY 7 Days Qty: 7 RF: 0 Continued nicotine 14 mg/24 hr Patch 24 Hour 1 patch TRANSDERMAL DAILY RF: 0 albuterol sulfate 2.5 mg /3 mL (0.083 %) Solution For Nebulization 2.5 mg INHALATION Q4H PRN (Reason: Cough) RF: 0 citalopram 40 mg Tablet 20 mg PO DAILY RF: 0 polyethylene glycol 3350 [Miralax] 17 gram Powder In Packet 17 g PO DAILY PRN (Reason: Constipation) RF: 0 sucralfate [Carafate] 1 gram Tablet 1 g PO BID RF: 0 sumatriptan succinate 50 mg Tablet 50 mg PO DAILY RF: 0 trazodone 100 mg Tablet 100 mg PO DAILY RF: 0 omeprazole 20 mg Capsule,Delayed Release(Dr/Ec) 20 mg PO DAILY RF: 0 bupropion HCl 150 mg Tablet Extended Release 24 Hr 150 mg PO QAM RF: 0 topiramate 50 mg Tablet 50 mg PO BID RF: 0 albuterol sulfate 90 mcg/actuation Hfa Aerosol Inhaler 1 inh INHALATION QID PRN (Reason: Cough) Qty: 1 RF: 0 Discharge Orders: Discharge Order (Routine); Ordered 11/01/19 Ordered By: Nikko Barrett Referrals: Freddy Wade [Family Provider] - 4-7 days Bola Walker MD [Physician] - 2 weeks Discharge Diet: Advance as tolerated Discharge Activity: Increase activity as tolerated Activity Restrictions/Additional Instructions: Please call your doctor or present to emergency department if your condition worsens or you develop diarrhea, lightheadedness, fatigue or see blood in your stool or black stool. Please do your best to quit smoking as we have discussed. Please discuss with your primary care physician in case if you need more nicotine patches. Discharge Attestations Time Spent in Discharge Care*: greater than 30 min Time Spent in Smoking Cessation: Time spent discussing smoking cessation with patient: 3 to 10 minutes Quality Metrics Clinical Quality Measures During this hospital stay, did patient experience: None Coding Level of Care Code Acute Heater Operator Helper for g Fwd Diagnoses Acute exacerbation of chronic obstructive airways disease J44.1 Acute hypercapnic respiratory failure J96.02 GERD (gastroesophageal reflux disease) K21.9 Peptic ulcer disease K27.9 Hemoptysis R04.2 Community acquired pneumonia J18.9
--- NOTE | 2019-11-01 12:48 | PC.SOCIAL ---
Robert webb called, trip #[id number].
--- NOTE | 2019-11-01 12:59 | PC.NURSE ---
DISCHARGE INSTRUCTIONS GIVEN - Appt. made for Dr. Walker @ 0830 for 11/15/2019. Patient understands all instructions as given. RUIZ PHILLIPS
== END 2019-11-01 16:38 | disposition home or self-care (01) | DRG 189 ==
LOC: ER 20:49 → ICU 21:14 → MEDSURG 10-31 19:52
PROVIDERS: Admitting Provider Internal Medicine; Emergency Provider Emergency Medicine; Family Provider Internal Medicine; Visit Provider Internal Medicine
DX: J96.02 Acute respiratory failure with hypercapnia (principal); J18.9 Pneumonia, unspecified organism; J44.1 Chronic obstructive pulmonary disease with (acute) exacerbation; J44.0 Chronic obstructive pulmonary disease with (acute) lower respiratory infection; K27.3 Acute peptic ulcer, site unspecified, without hemorrhage or perforation; R04.2 Hemoptysis; K21.0 Gastro-esophageal reflux disease with esophagitis; F17.210 Nicotine dependence, cigarettes, uncomplicated; B19.20 Unspecified viral hepatitis C without hepatic coma; Z86.010 Personal history of colon polyps; F32.9 Major depressive disorder, single episode, unspecified; I10 Essential (primary) hypertension
CPT/HCPCS: 12345; 36600; 71045; 80053; 82728; 82803; 83605; 83615; 83735; 83880; 84484; 85025; 85378; 87040; 87635; 87804; 93005; 94640; 94664; 96372; 96375; 99283; J1650; J1956; J2405; J2930; J3535; J7030; J7512

== ENCOUNTER 2019-11-25 18:13 | Inpatient (IN) | payer OTHER, MEDICAID, SELFPAY ==
[2019-11-25] VITALS (58 sets, daily range): BP systolic 91–142; BP diastolic 50–114; PULSE 88–128; RESP 15–31; TEMP 36.8–37.1; O2SAT 76–100; BMI 20.7
--- NOTE | 2019-11-25 18:28 | XR_ITS ---
WS: [id number] PORTABLE CHEST HISTORY: sob COMPARISON: 10/30/2019 Pulmonary hyperinflation. Focal scar at the LEFT costophrenic angle. No pleural effusion or pneumotho rax. Cardiac size: Normal. Mediastinum/Aorta: Normal mediastinum. No osseous abnormality seen. XR/XR chest 1V portable [id number] IMPRESSION: Chronic emphysema. No pneumonia.
--- NOTE | 2019-11-25 18:28 | ECG_ITS ---
Measurements Intervals [place] Rate: 89 P: 45 NH: 153 QRS: 88 QRSD: 83 T: 69 QT: 360 QTc: 438 SINUS RHYTHM Compared to ECG 10/31/2019 04:40:19 No significant changes Electronically Signed On 11-26-2019 15:54:45 CDT by Christine Shukla M.D. [email or web address]
--- NOTE | 2019-11-25 18:30 | ED_ITS ---
HPI - SOB/Dyspnea General: Chief Complaint: Shortness of Breath/Dyspnea Stated Complaint: SOB; PRODUCTIVE COUGH Time Seen by Provider: 11/25/19 18:17 History of Present Illness: MD elicited complaint: shortness of breath and cough Pertinent past history: COPD Onset (ago): day(s) (2) Severity: moderate Exacerbating factors: exertion and talking Relieving factors: oxygen Known history of: COPD Associated symptoms: Reports chest congestion, cough and fever(s); Deny abdominal pain, chest pain, dizziness, nausea, palpitations or vomiting Treatment prior to arrival: oxygen Review of Systems Const: Reports: fever Eyes: Denies: change in vision or blurry vision ENMT: Denies: painful swallowing or facial/sinus pain Card: Denies: chest pain, palpitations or edema Resp: Reports: shortness of breath, productive cough, wheezing and chest congestion GI: Denies: abdominal pain, nausea, vomiting, rectal pain, blood in stool or black tarry stool : Denies: difficulty urinating or blood in urine Musc: Reports: back pain; Denies: neck pain, redness or joint warmth Skin/Breast: Denies: rash, itching or redness Neuro: Denies: headache, dizziness or vertigo Psych: Denies: anxiety PFSH ED PFSH: Medical History (Updated 11/25/19 @ 22:05 by Britt Chance MD) COPD (chronic obstructive pulmonary disease) Depression GERD (gastroesophageal reflux disease) Hepatitis C Treatment status unknown History of migraine headaches Hx of colonic polyps Sessile on colonoscopy 02/16 Hypertension Peptic ulcer disease Gastric ulcer on EGD 02/16 Vitamin D deficiency Surgical History Hx of appendectomy Status post excision of lipoma (~01/2019) Family History Denies family history of Diabetes Hypertension Social History Smoking and tobacco status: current every day smoker cigarettes Packs smoked per day: 0.5 Years cigarettes smoked: 45 Alcohol intake: never Lives independently: Yes Household members: spouse Housing: House Marital status: Current occupational status: retired History of recent travel: No Current gender identity: Male Physical Exam Const: GENERAL APPEARANCE: well developed ORIENTATION/CONSCIOUSNESS: Yes oriented to person, Yes oriented to place and Yes oriented to time HENMT: COMMON NORMALS: normocephalic, external ears normal and external nose normal HEAD & SCALP: normocephalic FACE & SINUS: normal facial exam NOSE: external nose normal EXTERNAL EAR: Yes external ears normal THROAT: posterior oropharynx normal; no peritonsillar mass Eye: COMMON NORMALS: PERRL, EOMs intact bilaterally and conjunctivae normal EYELID: eyelids normal CONJUNCTIVA: Yes conjunctivae normal PUPIL: Yes PERRL Neck/C-Spine: GENERAL: No tracheal deviation Chest: COMMONS NORMALS: inspection of chest normal CHEST: No tenderness Resp: EFFORT & INSPECTION: Yes tachypneic, Yes respiratory distress, Yes retractions, Yes uses accessory muscles and No tracheal deviation AUSCULTATION: rhonchi, wheezes and diminished lung sounds Cardio: RATE: tachycardic HEART SOUNDS: no murmurs PERIPHERAL PULSES: radial pulses present GI: INSPECTION: No abdominal distension AUSCULTATION: No hyperactive bowel sounds and No hypoactive bowel sounds PALPATION: No guarding and No rigid PERCUSSION: no dullness to percussion and no tympanic to percussion Neuro: SENSORIUM/ORIENTATION: Yes oriented to person, Yes oriented to place and Yes oriented to time Psych: COMMON NORMALS: mental status grossly normal Skin: COMMON NORMALS: no rashes or lesions noted GENERAL SKIN EXAM: no rashes or lesions noted Course Vital Signs: Vital signs: Vital Signs Temperature 98.2 F 11/25/19 22:48 Pulse Rate 102 H 11/25/19 23:48 Respiratory Rate 22 H 11/25/19 23:48 Blood Pressure 128/96 11/25/19 22:23 Pulse Oximetry 97 11/25/19 23:48 MDM - SOB/Dyspnea MDM Narrative: Medical decision making narrative: 64-year-old COPD patient presents with fever, productive cough, shortness of breath, and respiratory acidosis. He is awake and talking on arrival. He is placed on BiPAP, and tolerating that very well. He tested negative for novel coronavirus 2 weeks ago, but is tested again this evening as well as for flu. His white blood cell count is 12.7. His electrolytes are normal. He is received Solu-Medrol, and a DuoNeb treatment. He will require more nebulizer treatments. His x-ray shows a left upper lobe pneumonia. He was in the hospital a couple of weeks ago, so he will be treated for healthcare associated pneumonia. Lab Data: Labs: Lab Results 11/25/19 11/25/19 11/25/19 Range/Units 18:27 18:47 18:54 WBC 12.7 H (4.0-10.0) 10^3/ uL RBC 4.86 (4.1-5.3) 10^6/u L Hgb 14.3 (11.7-16.6) g/dL Hct 46.3 (42.0-52.0) % MCV 95.3 H (80-94) fL MCH 29.4 (28.0-34.0) pg MCHC 30.9 (30.0-36.0) g/dL RDW 12.9 (12.1-15.1) % Plt Count 328 (130-400) 10^3/c mm MPV 9.2 (7.4-10.4) fL Neut % (Auto) 71.7 % Lymph % (Auto) 14.4 % Sampson % (Auto) 10.9 % Eos % (Auto) 2.2 % Baso % (Auto) 0.4 % Neut # (Auto) 9.1 H (1.8-7.7) 10^3/u L Lymph # (Auto) 1.8 (0.8-4.8) 10^3/u L Sampson # (Auto) 1.4 H (0.2-0.9) 10^3/u L Eos # (Auto) 0.3 (0.0-0.8) 10^3/u L Baso # (Auto) 0.1 (0.0-0.1) 10^3/u L Nucleated RBC % (a uto) 0 % Nucleated RBCs # 0.0 /100WBC D-Dimer (0-0.59) ug/mIFE U Specimen Type Arterial Sample Site Radial, left ABG pH 7.15 L* (7.35-7.45) ABG pCO2 61.5 H* (35-45) mmHg ABG pO2 163.0 H* (80.0-100.0) mmH g ABG HCO3 21.5 L (22-26) mmol/L ABG Base Excess -8.3 L (-2.0-2.0) mmol/ L Italo Test Pos Hematocrit 45.8 (42-52) % Hgb O2 Saturation 96.4 (95-100) % Carboxyhemoglobin 1.5 (0.4-20.1) %THgb Methemoglobin 1.0 (0.4-1.5) % Total Hemoglobin 14.9 (14-18) g/dL O2 Delivery Device Nc O2 Liters/Min 5.0 % [employer] Tutor ID cak Sodium (136-145) mmol/L Potassium (3.5-5.1) mmol/L Chloride (98-107) mmol/L Carbon Dioxide (22-29) mmol/L Anion Gap (5-19) BUN (8-23) mg/dL Creatinine (0.7-1.2) mg/dL GFR Calculation (90-130) mL/min Glucose (65-115) mg/dL Calculated Osmolal ity (285-295) mOsm/k g Lactic Acid (0.5-2.2) mmol/L Calcium (8.5-10.5) mg/dL Total Bilirubin (0.15-1.2) mg/dL AST (0-40) U/L ALT (0-41) U/L Alkaline Phosphata se (40-130) IU/L NT-Pro-B Natriuret Pep (0-125) pg/mL Total Protein (6.6-8.7) g/dL Albumin (3.5-5.2) g/dL Globulin (1.3-4.6) g/dL Procalcitonin (0-0.5) ng/mL Urine Color Yellow (Yellow) Urine Appearance Clear (CLEAR) Urine pH 5 (5-7) Ur Specific Gravit y 1.025 (1.005-1.030) Urine Protein Neg (Negative) Urine Glucose (UA) Norm (Normal) Urine Ketones 1+ H (Negative) Urine Blood Neg (Negative) Urine Nitrate Negative (Negative) Urine Bilirubin Neg (NEGATIVE) Urine Urobilinogen Norm (Negative) mg/dL Ur Leukocyte Dawna ase Negative (Negative) Influenza Type A A g (Negative) Influenza Type B A g (Negative) 11/25/19 11/25/19 11/25/19 Range/Units 18:54 18:54 18:59 WBC (4.0-10.0) 10^3/ uL RBC (4.1-5.3) 10^6/u L Hgb (11.7-16.6) g/dL Hct (42.0-52.0) % MCV (80-94) fL MCH (28.0-34.0) pg MCHC (30.0-36.0) g/dL RDW (12.1-15.1) % Plt Count (130-400) 10^3/c mm MPV (7.4-10.4) fL Neut % (Auto) % Lymph % (Auto) % Sampson % (Auto) % Eos % (Auto) % Baso % (Auto) % Neut # (Auto) (1.8-7.7) 10^3/u L Lymph # (Auto) (0.8-4.8) 10^3/u L Sampson # (Auto) (0.2-0.9) 10^3/u L Eos # (Auto) (0.0-0.8) 10^3/u L Baso # (Auto) (0.0-0.1) 10^3/u L Nucleated RBC % (a uto) % Nucleated RBCs # /100WBC D-Dimer (0-0.59) ug/mIFE U Specimen Type Sample Site ABG pH (7.35-7.45) ABG pCO2 (35-45) mmHg ABG pO2 (80.0-100.0) mmH g ABG HCO3 (22-26) mmol/L ABG Base Excess (-2.0-2.0) mmol/ L Italo Test Hematocrit (42-52) % Hgb O2 Saturation (95-100) % Carboxyhemoglobin (0.4-20.1) %THgb Methemoglobin (0.4-1.5) % Total Hemoglobin (14-18) g/dL O2 Delivery Device O2 Liters/Min % [employer] Tutor ID Sodium 140 (136-145) mmol/L Potassium 4.3 (3.5-5.1) mmol/L Chloride 103 (98-107) mmol/L Carbon Dioxide 23 (22-29) mmol/L Anion Gap 18.3 (5-19) BUN 12 (8-23) mg/dL Creatinine 0.9 (0.7-1.2) mg/dL GFR Calculation 85.2 L (90-130) mL/min Glucose 118 H (65-115) mg/dL Calculated Osmolal ity 287 (285-295) mOsm/k g Lactic Acid 0.7 (0.5-2.2) mmol/L Calcium 9.3 (8.5-10.5) mg/dL Total Bilirubin 0.3 (0.15-1.2) mg/dL AST 15 (0-40) U/L ALT 12 (0-41) U/L Alkaline Phosphata se 99 (40-130) IU/L NT-Pro-B Natriuret Pep 761 H (0-125) pg/mL Total Protein 8.0 (6.6-8.7) g/dL Albumin 4.3 (3.5-5.2) g/dL Globulin 3.7 (1.3-4.6) g/dL Procalcitonin 0.11 (0-0.5) ng/mL Urine Color (Yellow) Urine Appearance (CLEAR) Urine pH (5-7) Ur Specific Gravit y (1.005-1.030) Urine Protein (Negative) Urine Glucose (UA) (Normal) Urine Ketones (Negative) Urine Blood (Negative) Urine Nitrate (Negative) Urine Bilirubin (NEGATIVE) Urine Urobilinogen (Negative) mg/dL Ur Leukocyte Dawna ase (Negative) Influenza Type A A g (Negative) Influenza Type B A g (Negative) 11/25/19 11/25/19 Range/Units 18:59 19:30 WBC (4.0-10.0) 10^3/ uL RBC (4.1-5.3) 10^6/u L Hgb (11.7-16.6) g/dL Hct (42.0-52.0) % MCV (80-94) fL MCH (28.0-34.0) pg MCHC (30.0-36.0) g/dL RDW (12.1-15.1) % Plt Count (130-400) 10^3/c mm MPV (7.4-10.4) fL Neut % (Auto) % Lymph % (Auto) % Sampson % (Auto) % Eos % (Auto) % Baso % (Auto) % Neut # (Auto) (1.8-7.7) 10^3/u L Lymph # (Auto) (0.8-4.8) 10^3/u L Sampson # (Auto) (0.2-0.9) 10^3/u L Eos # (Auto) (0.0-0.8) 10^3/u L Baso # (Auto) (0.0-0.1) 10^3/u L Nucleated RBC % (a uto) % Nucleated RBCs # /100WBC D-Dimer 0.53 (0-0.59) ug/mIFE U Specimen Type Sample Site ABG pH (7.35-7.45) ABG pCO2 (35-45) mmHg ABG pO2 (80.0-100.0) mmH g ABG HCO3 (22-26) mmol/L ABG Base Excess (-2.0-2.0) mmol/ L Italo Test Hematocrit (42-52) % Hgb O2 Saturation (95-100) % Carboxyhemoglobin (0.4-20.1) %THgb Methemoglobin (0.4-1.5) % Total Hemoglobin (14-18) g/dL O2 Delivery Device O2 Liters/Min % [employer] Tutor ID Sodium (136-145) mmol/L Potassium (3.5-5.1) mmol/L Chloride (98-107) mmol/L Carbon Dioxide (22-29) mmol/L Anion Gap (5-19) BUN (8-23) mg/dL Creatinine (0.7-1.2) mg/dL GFR Calculation (90-130) mL/min Glucose (65-115) mg/dL Calculated Osmolal ity (285-295) mOsm/k g Lactic Acid (0.5-2.2) mmol/L Calcium (8.5-10.5) mg/dL Total Bilirubin (0.15-1.2) mg/dL AST (0-40) U/L ALT (0-41) U/L Alkaline Phosphata se (40-130) IU/L NT-Pro-B Natriuret Pep (0-125) pg/mL Total Protein (6.6-8.7) g/dL Albumin (3.5-5.2) g/dL Globulin (1.3-4.6) g/dL Procalcitonin (0-0.5) ng/mL Urine Color (Yellow) Urine Appearance (CLEAR) Urine pH (5-7) Ur Specific Gravit y (1.005-1.030) Urine Protein (Negative) Urine Glucose (UA) (Normal) Urine Ketones (Negative) Urine Blood (Negative) Urine Nitrate (Negative) Urine Bilirubin (NEGATIVE) Urine Urobilinogen (Negative) mg/dL Ur Leukocyte Dawna ase (Negative) Influenza Type A A g Negative (Negative) Influenza Type B A g Negative (Negative) Critical Care Time Critical Care Time: Critical Care Time: Yes Total Critical Care Time: 45 Attestation: This case had a high probability of a clinically significant, sudden, or life threatening deterioration of this patient's condition which required my full and direct attention, intervention and personal management. Discharge Plan Discharge Patient Disposition: Admitted As Inpatient Admit Provider: Britt Chance Clinical Impression: HCAP (healthcare-associated pneumonia), Acute respiratory failure with hypoxia and hypercapnia Condition: Stable Referrals: Freddy Wade [Family Provider] - Mar Burton FNP [Primary Care Provider] - Discharge Date/Time: 11/25/19 22:30 Coding Level of Care Code ED Group Exercise Manager for Chg Fwd Exam Comprehensive
[2019-11-25 18:37] LABS: Add Urine Microscopic? NO
[2019-11-25 18:40] LABS: Bilirubin Urine Neg (NEGATIVE); Blood Urine Neg (Negative); Glucose Urine UA Norm (Normal); Ketones Urine 1+ (Negative); Leukocyte Esterase Urine Negative (Negative); Nitrate Urine Negative (Negative); Protein Urine Neg (Negative); Specific Gravity, Urine 1.025 (1.005-1.030); Urine Appearance Clear (CLEAR); Urine Color Yellow (Yellow); Urobilinogen Urine Norm (Negative); pH Urine 5 (5-7)
[2019-11-25] MEDS: ipratropium-albuterol 3 mL Neb INHALATION (18:45)
[2019-11-25 18:59] LABS: ABG PCO2 61.5 mmHg (35-45); ABG PH Result 7.15 (7.35-7.45); Arterial Blood Gas Hematocrit 45.8 % (42-52); Base Excess ABG -8.3 mmol/L (-2.0-2.0); Blood Gas Allen Test Pos; Blood Gas Sample Site Radial, left; Blood Gas Sample Type Arterial; Carboxyhemoglobin 1.5 %THgb (0.4-20.1); HCO3 ABG 21.5 mmol/L (22-26); HGB O2 Sat 96.4 % (95-100); Oxygen Device NC; Total Hemoglobin 14.9 g/dL (14-18)
[2019-11-25 19:01] LABS: Basophils # 0.1 10^3/uL (0.0-0.1); Basophils % 0.4 %; Eosinophils # 0.3 10^3/uL (0.0-0.8); Eosinophils % 2.2 %; Hematocrit 46.3 % (42.0-52.0); Hemoglobin 14.3 g/dL (11.7-16.6); Lymphocytes # 1.8 10^3/uL (0.8-4.8); Lymphocytes % 14.4 %; Mean Corpuscular HGB Conc 30.9 g/dL (30.0-36.0); Mean Corpuscular Hemoglobin 29.4 pg (28.0-34.0); Mean Corpuscular Volume 95.3 fL (80-94); Mean Platelet Volume 9.2 fL (7.4-10.4); Monocytes # 1.4 10^3/uL (0.2-0.9); Monocytes % 10.9 %; Neutrophils # 9.1 10^3/uL (1.8-7.7); Neutrophils % 71.7 %; Nucleated Red Blood Cells % 0 %; Platelet Count 328 10^3/cmm (130-400); Red Blood Count 4.86 10^6/uL (4.1-5.3); Red Cell Distribution Width 12.9 % (12.1-15.1); White Blood Count 12.7 10^3/uL (4.0-10.0)
[2019-11-25 19:16] LABS: Lactic Sepsis W/Reflex 0.7 mmol/L (0.5-2.2)
[2019-11-25 19:22] LABS: Alanine Aminotransferase 12 U/L (0-41); Albumin Level 4.3 g/dL (3.5-5.2); Alkaline Phosphatase 99 IU/L (40-130); Anion Gap 18.3 (5-19); Aspartate Amino Transferase 15 U/L (0-40); Blood Urea Nitrogen 12 mg/dL (8-23); Calcium 9.3 mg/dL (8.5-10.5); Carbon Dioxide 23 mmol/L (22-29); Chloride 103 mmol/L (98-107); Globulin 3.7 g/dL (1.3-4.6); Glomerular Filtration Rate 85.2 mL/min (90-130); Glucose 118 mg/dL (65-115); NT Pro B Type Natriuretic Pept 761 pg/mL (0-125); Osmolality Calculated 287 mOsm/kg (285-295); Potassium 4.3 mmol/L (3.5-5.1); Sodium 140 mmol/L (136-145); Total Bilirubin 0.3 mg/dL (0.15-1.2)
[2019-11-25] MEDS: sodium chloride 0.9% 1,000 ML 999 ML IV (19:46)
--- NOTE | 2019-11-25 20:11 | P.HP_ITS ---
Providers/Chief Complaint Admitting Physician: Britt Cahnce Primary Care Provider: LESLY Palma Chief Complaint: SOB; PRODUCTIVE COUGH History of Present Illness Naren Pritchard is a 64 year old male who presented to the emergency room with chief complaint of difficulty breathing. He has COPD apparently with an asthmatic component and was hospitalized at the beginning of the month with a diagnosis of community-acquired pneumonia and bronchitis related to COPD. Initi ally admitted to the ICU. He required BiPAP for short period of time. Coronavirus testing was negative. He was treated with a course of Levaquin. He did not require oxygen at discharge. He followed up with Dr. Walker via telehealth on November 14. CT of the chest without contrast was ordered but has not been done due to current limitations. He had been noted to have a pulmonary nodule in the right upper lobe on CT imaging done in mid 2018. He has not had pulmonary function studies. At that visit he was changed from Advair and Spiriva to Trelegy although I am not sure if he had that filled. He states that his current increased cough and shortness of breath started about 5 days ago. He began having subjective fevers and chills about 3 days ago. Today his breathing became acutely more severe. He called EMS. On arrival oxygen saturations were in the low 80s by report. He was put on oxygen therapy in route. He was in significant distress on arrival. He received a breathing treatment and subsequently required BiPAP therapy. Initial blood gas showed 7.15/60 2/163/21. Chest x-ray shows hazy opacity in the lower left upper lobe suggestive of pneumonia. Lactic acid was normal at 0.7. He has received Solu- Medrol, saline and Levaquin. During my evaluation patient had significant paroxysmal's of coughing that were nonproductive. Unable to lie down but not definitively tripoding. Cough is a seal bark-like cough and constant. I performed some chest PT, got an albuterol inhaler with a spacer and ended up also giving him some Lortab elixir. He has yet to produce any sputum. History is limited on my end as is exam due to the severity of his coughing. Yes/no questions were asked as he really could not string along more than a few words before another fit of coughing. He has had some chills. He denies sore throat. He has had a headache but he also has a history of migraines. He has had malaise. No specific aches and pains though. No loss of taste or smell. Him and his have been taking precautionary measures. She had brain surgery in mid September according to prior documentation. No known sick contacts or documented COVID exposures. On repeated questioning he indicates that his coughing is this bad periodically. I asked him if he would be okay if he required intubation and he shook his head yes and later stated yes. I asked him if he felt like he was heading toward needing to be intubated right now. His response was I do not think so . I am unable to personally review his medication list with him right at the moment due to the severity of his coughing. After receiving a total of 4 puffs of albuterol and hydrocodone elixir, he has been able to go a bit of time without coughing but he remains tachypneic. He is refusing reinitiation of BiPAP. Remains on oxygen. Past medical history documented is obtained from prior records with patient answering yes or no to general diagnoses. Review of Systems General: Reports: other (Limited review of systems due to current medical condition) Const: Reports: fever, chills and malaise ENMT: Reports: nasal congestion; Denies: throat pain Card: Denies: edema Resp: Reports: shortness of breath, productive cough, non-productive cough, wheezing, stridor, pain on inspiration (Across the upper chest, intermittent, progressed with worse coughing) and chest congestion GI: Denies: vomiting or diarrhea : Reports: urinary dribbling and urinary incontinence Neuro: Reports: headache Medications/Allergies Home Medications Medication Instructions Recorded Confirmed Last Taken Type albuterol sulfate 2.5 mg INHALATION Q4H PRN 08/13/19 10/30/19 Unknown History bupropion HCl 150 mg PO QAM 08/13/19 10/30/19 Unknown History citalopram 20 mg PO DAILY 08/13/19 10/30/19 Unknown History nicotine 1 patch TRANSDERMAL DAILY 08/13/19 08/13/19 Unknown History omeprazole 20 mg PO DAILY 08/13/19 10/30/19 Unknown History polyethylene glycol 3350 [Miralax] 17 g PO DAILY PRN 08/13/19 10/30/19 Unknown History sucralfate [Carafate] 1 g PO BID 08/13/19 08/13/19 Unknown History sumatriptan succinate 50 mg PO DAILY 08/13/19 10/30/19 Unknown History topiramate 50 mg PO BID 08/13/19 10/30/19 Unknown History trazodone 100 mg PO DAILY 08/13/19 10/30/19 Unknown History albuterol sulfate 1 inh INHALATION QID PRN #1 g 11/01/19 10/30/19 Unknown Rx fluticasone propionate 250 1 inh INHALATION BID #60 each 11/15/19 11/15/19 Unknown Rx mcg/actuation blister powder for inhalation tiotropium 2.5 mcg-olodaterol 2.5 2 puff INHALATION DAILY #4 gm 11/15/19 11/15/19 Unknown Rx mcg/actuation mist for inhalation Allergies Allergy/AdvReac Type Severity Reaction Status Date / Time No Known Allergies Allergy Verified 11/15/19 08:58 PFSH Acute PFSH: Medical History COPD (chronic obstructive pulmonary disease) Depression GERD (gastroesophageal reflux disease) Hepatitis C Treatment status unknown Hx of colonic polyps Sessile on colonoscopy 02/16 Hypertension Peptic ulcer disease Gastric ulcer on EGD 02/16 Vitamin D deficiency Surgical History Hx of appendectomy Status post excision of lipoma (~01/2019) Family History Denies family history of Diabetes Hypertension Social History Smoking and tobacco status: current every day smoker cigarettes Packs smoked per day: 0.5 Years cigarettes smoked: 45 Alcohol intake: never Lives independently: Yes Household members: spouse Housing: House Marital status: Current occupational status: retired History of recent travel: No Current gender identity: Male Vitals/I&O/Wt Last Vital Signs Temp 98.7 F 11/25/19 18:14 Pulse 105 H 11/25/19 19:40 Resp 26 H 11/25/19 19:40 BP 110/67 11/25/19 19:40 Pulse Ox 98 11/25/19 19:40 Weight last 48 hrs Weight 53.07 kg Physical Exam Const: COMMON NORMALS: alert GENERAL APPEARANCE: cooperative and in distress NUTRITIONAL APPEARANCE: thin HENMT: COMMON NORMALS: normocephalic and head/scalp atraumatic MOUTH: other (Mild perioral cyanosis, posterior oropharynx is mildly erythematous, geographic tongue, dry); no drooling Neck/C-Spine: COMMON NORMALS: supple Resp: EFFORT & INSPECTION: No able to speak in complete sentences, Yes labored, Yes actively coughing dry, barking, strong, bronchospastic and wheezy, Yes uses accessory muscles and Yes audible wheezes AUSCULTATION: wheezes and diminished lung sounds PERCUSSION: percussion normal Cardio: RATE: tachycardic RHYTHM: regular rhythm OTHER: Heart sounds are otherwise obscured GI: COMMON NORMALS: soft to palpation and non-tender Extremity: COMMON NORMALS: normal capillary refill, no joint enlargement, no calf tenderness and no pedal edema Neuro: COMMON NORMALS: moves all extremities CRANIAL NERVES: Yes other (Face symmetric) SPEECH: speech normal (When able to speak) Psych: ATTITUDE: Yes calm (Particularly for the degree of distress he is demonstrating) Skin: GENERAL SKIN EXAM: decreased turgor (Decreased) and other (Dry with chronic changes in sun exposed areas, scattered ecchymoses) Data : 11/25/19 18:54 11/25/19 18:54 Other Labs: Laboratory Tests 11/25/19 11/25/19 11/25/19 18:47 18:54 18:54 Lymph # (Auto) 1.8 ABG pH 7.15 L* ABG pCO2 61.5 H* ABG pO2 163.0 H* ABG HCO3 21.5 L Carboxyhemoglobin 1.5 O2 Liters/Min 5.0 Lactic Acid Calcium 9.3 Total Bilirubin 0.3 AST 15 ALT 12 Alkaline Phosphatase 99 NT-Pro-B Natriuret Pep 761 H Albumin 4.3 Influenza Type A Ag Influenza Type B Ag 11/25/19 11/25/19 18:54 19:30 Lymph # (Auto) ABG pH ABG pCO2 ABG pO2 ABG HCO3 Carboxyhemoglobin O2 Liters/Min Lactic Acid 0.7 Calcium Total Bilirubin AST ALT Alkaline Phosphatase NT-Pro-B Natriuret Pep Albumin Influenza Type A Ag Negative Influenza Type B Ag Negative Micro: Microbiology 11/25/19 18:54 Blood Culture - Preliminary Blood SPECIMEN COLLECTED 11/25/19 18:54 Blood Culture - Preliminary Blood SPECIMEN COLLECTED A&P Assessment and plan (1) Acute respiratory failure with hypoxia and hypercapnia: During the time of my examination patient was severe bronchospasm and seal-like barking. He states that he does this when he gets really sick. Status: Acute (2) Acute respiratory acidosis: Status: Acute (3) HCAP (healthcare-associated pneumonia): Presumptive diagnosis at time of admission Status: Acute (4) Elevated brain natriuretic peptide (BNP) level: Currently unclear significance Status: Acute (5) COPD (chronic obstructive pulmonary disease): Status: Chronic Qualifiers: COPD type: COPD with acute exacerbation Qualified Code(s): J44.1 - Chronic obstructive pulmonary disease with (acute) exacerbation (6) Nicotine dependence: Status: Chronic Qualifiers: Nicotine product type: cigarettes Substance use status: other nicotine- induced disorder Qualified Code(s): F17.218 - Nicotine dependence, cigarettes, with other nicotine-induced disorders (7) Pulmonary nodule: Status: Chronic (8) Hypertension: Status: Chronic Qualifiers: Hypertension type: unspecified Qualified Code(s): I10 - Essential (p rimary) hypertension (9) Peptic ulcer disease: Status: Chronic (10) Depression: Status: Acute Qualifiers: Depression Type: unspecified Qualified Code(s): F32.9 - Major depressive disorder, single episode, unspecified (11) History of migraine headaches: Status: Chronic Additional A&P Information ICU admission COVID testing has been sent Droplet and airborne isolation currently Initially required BiPAP but now refusing Switch to inhalers Received 1 dose of steroids in the emergency room, given the severity of the wheezing and bronchospasm will continue steroids for this patient Broad-spectrum antibiotic coverage for healthcare associated organisms including vancomycin, Levaquin and Zosyn currently Follow-up pending cultures Follow-up official interpretation of chest x-ray Repeat ABG and check pro calcitonin If cleared from COVID isolation would benefit from CT of the chest which has been recommended a couple of times as well as echocardiogram Clinically appears dry so despite the elevation in BNP I am going to give him low volume IV fluids tonight EKG and troponins Nicotine patch Continue home antidepressants Continue home Topamax Continue PPI and Carafate Add lactobacillus Lovenox, monitoring for hemoptysis which was mentioned at prior admission though details not clear. Denied at the moment. Supportive care otherwise Full code Encourage patient to let us know if he feels like he is needing to be intubated Plans discussed with patient and he gave a thumbs up as a response Attestations Medical Necessity Statement*: Anticipated stay greater than 2 midnights in a patient presenting with significant respiratory distress. Plans are as indicated. 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 [facility] u[employer]ma Diagnoses Acute respiratory failure with hypoxia and hypercapnia J96.01; J96.02 Acute respiratory acidosis E87.2 HCAP (healthcare-associated pneumonia) J18.9 Elevated brain natriuretic peptide (BNP) level R79.89 COPD (chronic obstructive pulmonary disease) J44.1 COPD type: COPD with acute exacerbation Nicotine dependence F17.218 Nicotine product type: cigarettes Substance use status: other nicotine-induced disorder Pulmonary nodule R91.1 Hypertension I10 Hypertension type: unspecified Peptic ulcer disease K27.9 Depression F32.9 Depression Type: unspecified History of migraine headaches Z86.69
[2019-11-25 20:14] LABS: Influenza A by IFA Negative (Negative); Influenza B by IFA Negative (Negative)
[2019-11-25 20:34] LABS: Procalcitonin 0.11 ng/mL (0-0.5)
[2019-11-25 20:49] LABS: ABG PH Result 7.25 (7.35-7.45); Arterial Blood Gas Hematocrit 40.5 % (42-52); Base Excess ABG -6.9 mmol/L (-2.0-2.0); Blood Gas Allen Test Pos; Blood Gas Sample Site Radial, right; Blood Gas Sample Type Arterial; HCO3 ABG 20.3 mmol/L (22-26); Oxygen Device NC; PO2 ABG 99.5 mmHg (80.0-100.0)
[2019-11-25] MEDS: levofloxacin-dextrose 5 % 750 MG/150 ML PREMIX 100 MG IV (21:16)
[2019-11-25] MEDS: HYDROcodone-APAP 7.5-325 mg/15 mL UDC 10 ML PO (21:16)
[2019-11-25] MEDS: albuterol 8 gm MDI 2 PUFF INHALATION (22:00)
[2019-11-25 23:02] LABS: D Dimer 0.53 ug/mIFEU (0-0.59)
[2019-11-25 23:07] LABS: Troponin(5th) Baseline 32 ng/mL (0-15)
--- NOTE | 2019-11-25 23:12 | PC.PHAR ---
Pharmacokinetic dosing service Date: 11/25/19 Time: 2311 Objective: Patient: Naren Pritchard Floor: ICU-2 Age: 64 yo Serum creatinine: 0.9 mg/dL Height: 63.0 Inches Weight (kg): 53.07 Diagnosis: Relevant medical/social history: Cultures and sensitivities: Other labs: Assessment: IBW (kg): 56.90 Dosing wt(kg): 53.07 Estimated Creatinine clearance (ml/min): 63.1 CRCL method: Cockcroft and Gault using ibw(default). Drug selected: Vancomycin Loading dose (mg): 0 Vd (liters): 47.8 (factor used: 0.9 L/kg) Altaf (hr-1): 0.057 Half life (hrs): 12.16 Recommended dose: 1000 mg Interval: 18 hrs Infusion time (hrs): 1.5 Predicted peak (mcg/mL): 31.3 Predicted trough (mcg/mL): 12.22 Total body weight is being used for vancomycin dosing. Renal function is stable [ ] /unstable [ ] Recommendations: Give Vancomycin 1000 mg q 18 hrs with an expected Cpeak of 31.3 mcg/ml and an expected Ctrough of 12.22 mcg/ml Renal dosing of other antibiotics (review renal dosing of other medications and list guidelines here): Thank you for the consult, will continue to follow. Signature: Yanique Haque [facility]
[2019-11-25] MEDS: enoxaparin 40 mg/0.4 mL Syringe SUBCUT (23:25)
[2019-11-25] MEDS: piperacillin-tazobactam 3.375 GM in sodium chloride 0.9% (plus) 50 ML IV (23:26)
[2019-11-25] MEDS: sodium chlor 0.9% + KCl 20 mEq 20 MEQ/1,000 ML BAG 75 MEQ IV (23:26)
[2019-11-25] MEDS: vancomycin 1,000 MG in sodium chloride 0.9% 250 ML 250 MG IV (23:26)
--- NOTE | 2019-11-25 23:44 | PC.NURSE ---
Report received from Emi in ER. Pt arrived to unit and admission assessment was started and pt was settled in. Pt hooked up to SCDs, night monitor, pulse ox, and oxygen at 2 L NC. Pt ased nurse, Are you from [place]? Because when you bent over to close that zipper door, your ass just popped out at me! Nurse ignored pt comments and continued to ask admission questions. Pt continued to make comments about how sexy the nurse is as well as how marya her must be.
[2019-11-26] VITALS (54 sets, daily range): BP systolic 91–128; BP diastolic 49–96; PULSE 73–96; RESP 17–45; TEMP 36.4–37; O2SAT 90–100; BMI 21.9
[2019-11-26] MEDS: HYDROcodone-APAP 7.5-325 mg/15 mL UDC 7.5 ML PO ×3 (00:42→06:50)
[2019-11-26 01:04] LABS: Troponin 5 2HR 22.39 ng/mL (0-15)
[2019-11-26 01:06] LABS: Troponin 5 2HR Delta -9.61 ABS# (0-10)
[2019-11-26] MEDS: albuterol 8 gm MDI 1 PUFF INHALATION ×4 (03:41→11:03)
--- NOTE | 2019-11-26 04:18 | ECG_ITS ---
Measurements Intervals [place] Rate: 85 P: 41 NM: 164 QRS: 84 QRSD: 83 T: 67 QT: 361 QTc: 429 SINUS RHYTHM Compared to ECG 10/31/2019 04:40:19 No significant changes Electronically Signed On 11-26-2019 15:57:55 CDT by Christine Shukla M.D. [id number]
[2019-11-26 05:16] LABS: Basophils % 0.1 %; Hematocrit 45.4 % (42.0-52.0); Hemoglobin 13.3 g/dL (11.7-16.6); Lymphocytes # 0.6 10^3/uL (0.8-4.8); Lymphocytes % 8.2 %; Mean Corpuscular HGB Conc 29.3 g/dL (30.0-36.0); Mean Corpuscular Hemoglobin 28.9 pg (28.0-34.0); Mean Corpuscular Volume 98.5 fL (80-94); Mean Platelet Volume 9.8 fL (7.4-10.4); Monocytes # 0.1 10^3/uL (0.2-0.9); Monocytes % 1.9 %; Neutrophils # 6.6 10^3/uL (1.8-7.7); Neutrophils % 89.5 %; Nucleated Red Blood Cells % 0 %; Platelet Count 233 10^3/cmm (130-400); Red Blood Count 4.61 10^6/uL (4.1-5.3); Red Cell Distribution Width 12.8 % (12.1-15.1); White Blood Count 7.3 10^3/uL (4.0-10.0)
[2019-11-26 05:34] LABS: Alanine Aminotransferase 11 U/L (0-41); Albumin Level 3.5 g/dL (3.5-5.2); Alkaline Phosphatase 91 IU/L (40-130); Anion Gap 19.5 (5-19); Blood Urea Nitrogen 15 mg/dL (8-23); Calcium 9.3 mg/dL (8.5-10.5); Carbon Dioxide 18 mmol/L (22-29); Chloride 102 mmol/L (98-107); Globulin 3.3 g/dL (1.3-4.6); Glomerular Filtration Rate 75.5 mL/min (90-130); Glucose 180 mg/dL (65-115); Osmolality Calculated 281 mOsm/kg (285-295); Potassium 4.5 mmol/L (3.5-5.1); Sodium 135 mmol/L (136-145); Total Bilirubin 0.3 mg/dL (0.15-1.2); Total Protein 6.8 g/dL (6.6-8.7)
[2019-11-26 05:36] LABS: Troponin 5 6HR 16.51 ng/mL (0-15)
[2019-11-26 05:42] LABS: Troponin 5 6HR Delta -15.49 ng/L (0-12)
[2019-11-26 05:44] LABS: Aspartate Amino Transferase 18 U/L (0-40)
[2019-11-26] MEDS: piperacillin-tazobactam 3.375 GM in sodium chloride 0.9% (plus) 50 ML IV ×2 (05:46→14:48)
[2019-11-26 06:52] LABS: INR 1.08 (0.8-1.2)
[2019-11-26 06:53] LABS: Partial Thromboplastin Time 30.4 SECONDS (23.9-36.7)
[2019-11-26] MEDS: buPROPion XL (24 HR) 150 mg Tablet PO (09:30)
[2019-11-26] MEDS: lactobacillus 1 Tablet 1 TAB PO ×2 (09:30→17:36)
[2019-11-26] MEDS: citalopram 20 mg Tablet PO (09:30)
[2019-11-26] MEDS: predniSONE 20 mg Tablet 40 MG PO (09:30)
[2019-11-26] MEDS: pantoprazole 40 mg SDV IVP (09:30)
--- NOTE | 2019-11-26 13:42 | PC.NURSE ---
PATIENT HAD A RUNNY LOOSE FOUL BM ; BSC HAD URINE AND TOILET PAPER IN IT, WELL ; INSTRUCTED PATIENT TO NOT URINATE OR PUT TP IN NEXT BM
[2019-11-26 14:59] LABS: Coronavirus Lab Test PTC NOT DETECTED
--- NOTE | 2019-11-26 15:46 | CTR_ITS ---
PROCEDURE INFORMATION: Exam: CT Chest Without Contrast Exam date and time: 11/26/2019 4:20 PM Age: 64 years old Clinical indication: Cough; Additional info: New pneumonia, pulmonary nodule TECHNIQUE: Imaging protocol: Computed tomography of the chest without contrast. Total DLP: 322.6 mGy-cm Radiation optimization: All CT scans at this facility use at least one of these dose optimization techniques: automated exposure control; mA and/or kV adjustment per patient size (includes targeted exams where dose is matched to clinical indication); or iterative reconstruction. COMPARISON: CT chest w con* [id number] 01/02/2019 8:25 AM FINDINGS: Lungs: Stable paraseptal emphysema. Stable centrilobular emphysema. Grossly stable 1.6 x 1.7 x 2.5 cm non solid spiculated lesion in the posterior segment right upper lobe which previously measured 1.5 x 1.8 x 2.5 cm most consistent with scar. Stable 3 mm calcified granuloma anterior segment right upper lobe, axial series 2, image 26. No followup needed. Resolution of nonspecific tree-in-bud opacities in the posterior segment right lower lobe most consistent with resolution of minimal pneumonia. Interval appearance of small nonspecific tree-in-bud peripheral opacities in the lateral segment right middle lobe and right lateral costophrenic angle most consistent with minimal pneumonitis . Pleural space: Unremarkable. No pneumothorax. No pleural effusion. Heart: Unremarkable. No cardiomegaly. No pericardial effusion. Aorta: Calcification of the abdominal aorta and/or iliac arteries consistent with atherosclerotic vessel disease. Great vessels off aortic arch: Calcification of the thoracic aorta and/or great vessels consistent with atherosclerotic vessel disease. Lymph nodes: Unremarkable. No enlarged lymph nodes. Gallbladder and bile ducts: 5 mm radiopaque gallstone in the dependent portion of the gallbladder neck. Bones/joints: Unremarkable. No acute fracture. Soft tissues: Unremarkable. CT/CT chest wo con [id number] IMPRESSION: 1. Stable centrilobular emphysema. 2. Grossly stable 1.6 x 1.7 x 2.5 cm non solid spiculated lesion in the posterior segment right upper lobe which previously measured 1.5 x 1.8 x 2.5 cm most consistent with scar. 3. Stable 3 mm calcified granuloma anterior segment right upper lobe, axial series 2, image 26. No followup needed. 4. Resolution of nonspecific tree-in-bud opacities in the posterior segment right lower lobe most consistent with resolution of minimal pneumonia. 5. Interval appearance of small nonspecific tree-in-bud peripheral opacities in the lateral segment right middle lobe and right lateral costophrenic angle most consistent with minimal pneumonitis . Radiation Dose CTDIVOL = (mGy): DLP = 322.6 (mGy-cm)
--- NOTE | 2019-11-26 15:47 | P.PN_ITS ---
Subjective Subjective: Interval history: Overnight labs and H7P reviewed. Improved today. 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 focal neuro deficits Data : 11/26/19 04:03 11/26/19 04:03 Micro: Microbiology 11/25/19 18:27 Gram Stain - Final Sputum - Expectorated Sputum 11/25/19 18:54 Blood Culture - Preliminary Blood SPECIMEN COLLECTED 11/25/19 18:54 Blood Culture - Preliminary Blood SPECIMEN COLLECTED A&P Assessment and plan (1) COPD (chronic obstructive pulmonary disease): Status: Chronic Qualifiers: COPD type: COPD with acute exacerbation Qualified Code(s): J44.1 - Chronic obstructive pulmonary disease with (acute) exacerbation (2) Asthma: Status: Acute (3) Acute respiratory failure with hypoxia and hypercapnia: Status: Acute (4) Pulmonary nodule: Status: Chronic (5) Acute respiratory acidosis: Status: Acute Additional A&P Information Acute COPD exacerbation: Duonebs/budenoside inhalation round the clock Bipap prn Prednisone 40mg po qd Continue levaquin Better today COBID testing negative # pulmonary nodule, possible pneumonia on CXR, chest CT chest Continue home antidepressants Continue home Topamax Continue PPI and Carafate Full code Attestations Medical Necessity Statement*: optimization of respiratory status Coding Level of Care Code Acute Kiosk Sales Representative for [facility] 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
[2019-11-26] MEDS: ipratropium-albuterol 3 mL Neb INHALATION ×2 (16:11→20:23)
[2019-11-26] MEDS: topiramate 25 mg Tablet 50 MG PO (17:36)
[2019-11-26] MEDS: levofloxacin-dextrose 5 % 750 MG/150 ML PREMIX 100 MG IV (20:21)
[2019-11-26] MEDS: budesonide 0.5 mg/2 mL Neb INHALATION (20:23)
[2019-11-26] MEDS: enoxaparin 40 mg/0.4 mL Syringe SUBCUT (23:34)
[2019-11-27] VITALS (10 sets, daily range): BP systolic 115–142; BP diastolic 65–79; PULSE 90–98; RESP 18–20; TEMP 36.8–37.2; O2SAT 93–96
[2019-11-27] MEDS: ipratropium-albuterol 3 mL Neb INHALATION ×2 (02:06→07:59)
[2019-11-27 05:17] LABS: Basophils % 0.3 %; Eosinophils % 0.2 %; Hematocrit 38.8 % (42.0-52.0); Hemoglobin 11.9 g/dL (11.7-16.6); Lymphocytes % 21.2 %; Mean Corpuscular HGB Conc 30.7 g/dL (30.0-36.0); Mean Corpuscular Volume 94.4 fL (80-94); Mean Platelet Volume 9.6 fL (7.4-10.4); Monocytes # 1.1 10^3/uL (0.2-0.9); Monocytes % 12.3 %; Neutrophils % 65.3 %; Nucleated Red Blood Cells % 0 %; Platelet Count 259 10^3/cmm (130-400); Red Blood Count 4.11 10^6/uL (4.1-5.3); Red Cell Distribution Width 12.7 % (12.1-15.1); White Blood Count 9.2 10^3/uL (4.0-10.0)
[2019-11-27 07:09] LABS: Alanine Aminotransferase 11 U/L (0-41); Albumin Level 3.4 g/dL (3.5-5.2); Alkaline Phosphatase 91 IU/L (40-130); Anion Gap 14.1 (5-19); Blood Urea Nitrogen 10 mg/dL (8-23); Calcium 9.6 mg/dL (8.5-10.5); Carbon Dioxide 24 mmol/L (22-29); Chloride 108 mmol/L (98-107); Globulin 3.1 g/dL (1.3-4.6); Glomerular Filtration Rate 85.2 mL/min (90-130); Glucose 106 mg/dL (65-115); Osmolality Calculated 290 mOsm/kg (285-295); Potassium 4.1 mmol/L (3.5-5.1); Sodium 142 mmol/L (136-145); Total Bilirubin 0.2 mg/dL (0.15-1.2); Total Protein 6.5 g/dL (6.6-8.7)
[2019-11-27 07:15] LABS: Aspartate Amino Transferase 20 U/L (0-40)
[2019-11-27] MEDS: budesonide 0.5 mg/2 mL Neb INHALATION (07:59)
[2019-11-27] MEDS: buPROPion XL (24 HR) 150 mg Tablet PO (09:51)
[2019-11-27] MEDS: lactobacillus 1 Tablet 1 TAB PO (09:51)
[2019-11-27] MEDS: predniSONE 20 mg Tablet 40 MG PO (09:52)
[2019-11-27] MEDS: citalopram 20 mg Tablet PO (09:52)
--- NOTE | 2019-11-27 12:07 | PC.CHAP ---
Pastoral Care Encounter/Spiritual Assessment Type of Contact [] Declined brake reliner visit [] Patient/Family/Request visit [] Outpatient visit [] Follow-up visit [] Physician referral [] Code/Alert [X] Routine visit [] Staff referral [] Actively dying [] Patient sleeping [] Family support [] [] Out of room [] Palliative care [] [x] Receiving care in room [] Pre-surgical visit [] Trauma [] Long length of stay [] ICU visit [] Other: Relational/Emotional Strength [x] Patient feels connected with others/family/visitors/staff [] Distress [] Loneliness/isolation [] Abandonment Spirituality of Patient [x] Person of Stephanie [] Attends Hinduism of their Stephanie [x] Believes in Prayer [] Reads Bible or Episcopal materials [] There are Spiritual issues to be addressed Legal File Clerk Interventions [x] Prayer [x] Active listening [x] Non-anxious presence [x] Spiritual/emotional support [x] Crisis/trauma care [x] Spiritual counseling [] Bereavement support [] Provided bereavement packet [] Provided Bible/devotional materials [] Provided toy/stuffed animal, coloring book to patient or family member [] Provided Communion [] Anointing/[place] [] Salvation [x] Completed spiritual assessment [] Other: Impact on Illness or Injury [] Angry [] Fearful [] Anxious [] Often cries [] Exhaustion [] Unable to work [] Unable to attend methodist [] Unable to walk/stand [] Unable to read [] Unable to drive [] Unable to eat/drink [] Unable to sleep [] Unable to be with family [] Patient intubated [] Other: Summary Feels better has a possative attitude Time spent with patient 10 mins
--- NOTE | 2019-11-27 13:55 | P.DS_ITS ---
Discharge Providers Date of Admission: 11/25/19 20:28 Date of Discharge: November 27, 2019 Attending Provider at Admission: Britt Chance MD Attending Provider at Discharge: Margie Simmons MD Primary Care Provider: LESLY Palma Diagnoses at Discharge Discharge Diagnosis (1) COPD (chronic obstructive pulmonary disease): Status: Chronic Qualifiers: COPD type: COPD with acute exacerbation Qualified Code(s): J44.1 - Chronic obstructive pulmonary disease with (acute) exacerbation (2) Asthma: Status: Acute (3) Acute respiratory failure with hypoxia and hypercapnia: Status: Acute (4) Pulmonary nodule: Status: Chronic (5) Acute respiratory acidosis: Status: Acute Reason for Visit Reason for Visit: Reason For Visit: SOB; PRODUCTIVE COUGH Hospital Course Discharge Summary: Naren Pritchard is a 64 year old male who presented to the emergency room with chief complaint of difficulty breathing. He has COPD apparently with an asthmatic component and was hospitalized at the beginning of the month with a diagnosis of community-acquired pneumonia and bronchitis related to COPD. He recently saw Dr. Walker as an outpatient and had his home medications and inhalers adjusted. He presented now with subjective fever and chills starting about 3 days ago along with worsening shortness of breath. His initial blood gas shows 7.1 5/60/163/21. He was placed on BiPAP and then improved significantly within a few hours after being put on positive pressure ventilation. His breathing has significantly improved and at this present time he remains on room air. He underwent a CT of the chest which showed centrilobular emphysema and a stable spiculated lesion in the right upper lobe. There was also a stable calcified granuloma in the right lower lobe. There were some tree-in-bud peripheral opacities seen in the right middle lobe and the right costophrenic angle, however there was no gross consolidation seen. I suspect that this may be related to intermittent aspiration of upper airway secretions. He is being discharged home today in stable condition. He underwent a home O2 eval as well which showed 93% O2 sats. Physical Exam Narrative: EXAM NARRATIVE: GEN: Awake, alert and oriented, no acute distress CVS: S1S2 N RS: CTA B/L Abd: Soft, nt/nd , bs+ [employer] COMM[employer]ICATION[employer] SPECIALIST: no focal neuro deficits Discharge Data Data Completed and Pending: Completed Studies During Hospitalization Category Date Time Status CT chest wo con 7 1250 Routine Cat Scan 11/26/19 15:46 Completed XR chest 1V soco ble [id number] Urgent Exams 11/25/19 18:28 Completed Pending at discharge Category Date Time Status Blood Culture Sta t Lab 11/25/19 18:54 Results Sputum Culture an d Gram Stain Stat Lab 11/25/19 18:27 Results Labs from last 24 hours 11/27/19 11/27/19 11/27/19 06:35 04:58 04:58 WBC 9.2 RBC 4.11 Hgb 11.9 Hct 38.8 L MCV 94.4 H MCH 29.0 MCHC 30.7 RDW 12.7 Plt Count 259 MPV 9.6 Neut % (Auto) 65.3 Lymph % (Auto) 21.2 Kinney % (Auto) 12.3 Eos % (Auto) 0.2 Baso % (Auto) 0.3 Neut # (Auto) 6.0 Lymph # (Auto) 2.0 Kinney # (Auto) 1.1 H Eos # (Auto) 0.0 Baso # (Auto) 0.0 Nucleated RBC % (a uto) 0 Nucleated RBCs # 0.0 Sodium 142 Cancelled Potassium 4.1 Cancelled Chloride 108 H Cancelled Carbon Dioxide 24 Cancelled Anion Gap 14.1 Cancelled BUN 10 Cancelled Creatinine 0.9 Cancelled GFR Calculation 85.2 L Cancelled Glucose 106 Cancelled Calculated Osmolal ity 290 Cancelled Calcium 9.6 Cancelled Total Bilirubin 0.2 Cancelled AST 20 Cancelled ALT 11 Cancelled Alkaline Phosphata se 91 Cancelled Total Protein 6.5 L Cancelled Albumin 3.4 L Cancelled Globulin 3.1 Cancelled Nasal/Oral COVID-1 9 PCR 11/25/19 19:30 WBC RBC Hgb Hct MCV MCH MCHC RDW Plt Count MPV Neut % (Auto) Lymph % (Auto) Kinney % (Auto) Eos % (Auto) Baso % (Auto) Neut # (Auto) Lymph # (Auto) Kinney # (Auto) Eos # (Auto) Baso # (Auto) Nucleated RBC % (a uto) Nucleated RBCs # Sodium Potassium Chloride Carbon Dioxide Anion Gap BUN Creatinine GFR Calculation Glucose Calculated Osmolal ity Calcium Total Bilirubin AST ALT Alkaline Phosphata se Total Protein Albumin Globulin Nasal/Oral COVID-1 9 PCR Not detected Vitals: Last Vital Signs Temp 99.0 F 11/27/19 11:24 Pulse 98 11/27/19 11:24 Resp 18 11/27/19 11:24 BP 132/74 11/27/19 11:24 Pulse Ox 96 11/27/19 13:48 Discharge Plan Discharge Patient Disposition: Home, Self-Care Condition: Stable Prescriptions: New prednisone 20 mg Tablet 40 mg PO DAILY 5 Days Qty: 5 RF: 0 amoxicillin-pot clavulanate [Augmentin] 875-125 mg tablet 1 tab PO BID 5 Days Qty: 10 RF: 0 Continued Flovent Diskus 250 mcg/actuation blister with device 1 inh INHALATION BID Qty: 60 RF: 3 albuterol sulfate [ProAir HFA] 90 mcg/actuation Hfa Aerosol Inhaler 1 inh INHALATION Q4-5H PRN (Reason: Shortness Of Breath) RF: 0 Spiriva with HandiHaler 18 mcg Capsule, W/Inhalation Device 1 cap INHALATION DAILY RF: 0 aspirin 81 mg Tablet,Delayed Release (Dr/Ec) 81 mg PO DAILY RF: 0 Vitamin D3 25 mcg (1,000 unit) Capsule 25 mcg PO DAILY RF: 0 Voltaren 1 % Gel 2 g TOPICAL QID PRN (Reason: NECK PAIN) RF: 0 albuterol sulfate 2.5 mg /3 mL (0.083 %) Solution For Nebulization 2.5 mg INHALATION Q4H PRN (Reason: Cough) RF: 0 sumatriptan succinate 50 mg Tablet 50 mg PO Q3D RF: 0 trazodone 100 mg Tablet 100 mg PO BEDTIME RF: 0 omeprazole 20 mg Capsule,Delayed Release(Dr/Ec) 20 mg PO BID RF: 0 topiramate 50 mg Tablet 50 mg PO BEDTIME RF: 0 Discharge Orders: Discharge Order (Routine); Ordered 11/27/19 Ordered By: Margie Simmons Referrals: Freddy Wade [Family Provider] - Mar Burton FNP [Primary Care Provider] - Bola Walker MD [Physician] - 4-7 days Discharge Diet: Usual diet Discharge Activity: Resume usual activity Discharge Attestations Time Spent in Discharge Care*: less than 30 min Quality Metrics Clinical Quality Measures During this hospital stay, did patient experience: None Coding Level of Care Code 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
--- NOTE | 2019-11-28 10:19 | PC.SOCIAL ---
Addendum entered by Jackelyn Felix RN 11/28/19 10:22: 10 tabs of the 20mg since the Prednisone does not come in 40mg tablets but does come in 20mg tablets. Original Note: Clarified with Jessica at [facility] that patient should be taking Prednisone 40mg once daily for 5 days total of 10 tabs.
== END 2019-11-27 15:44 | disposition home or self-care (01) | DRG 189 ==
LOC: ER 20:05 → ICU 20:54 → MEDSURG 11-26 17:55
PROVIDERS: Admitting Provider Hospitalist; Emergency Provider Emergency Medicine; Family Provider Internal Medicine; PCP Nurse Practitioner; Visit Provider Student in an Organized Health Care Education/Training Program
DX: J96.01 Acute respiratory failure with hypoxia (principal); J44.1 Chronic obstructive pulmonary disease with (acute) exacerbation; E87.2 Acidosis; J44.0 Chronic obstructive pulmonary disease with (acute) lower respiratory infection; J96.02 Acute respiratory failure with hypercapnia; I10 Essential (primary) hypertension; R91.1 Solitary pulmonary nodule; Z79.82 Long term (current) use of aspirin; F32.9 Major depressive disorder, single episode, unspecified; K21.9 Gastro-esophageal reflux disease without esophagitis; B19.20 Unspecified viral hepatitis C without hepatic coma; Z87.11 Personal history of peptic ulcer disease; Z86.010 Personal history of colon polyps; F17.210 Nicotine dependence, cigarettes, uncomplicated; Z20.828 Contact with and (suspected) exposure to other viral communicable diseases
CPT/HCPCS: 12345; 36415; 36600; 71045; 71250; 80053; 81003; 82803; 82805; 83605; 83735; 83880; 84145; 84484; 85025; 85378; 85610; 85730; 87040; 87070; 87077; 87205; 87635; 87804; 93005; 94640; 94660; 96372; 96374; 96375; 97110; 97116; 97161; 99284; A9270; C9113; J1650; J1956; J2543; J2930; J3370; J3535; J7030; J7050; J7512; J7611; J7626

== ENCOUNTER → 2019-12-11 15:33 | Outpatient (BNVA) | payer OTHER, MEDICAID, SELFPAY | PROVIDERS: Family Provider Internal Medicine; PCP Nurse Practitioner; Referring Provider Internal Medicine; Visit Provider Specialist | DX: R51 Headache (principal); Z79.82 Long term (current) use of aspirin; F17.210 Nicotine dependence, cigarettes, uncomplicated | CPT/HCPCS: G0463 ==

== ENCOUNTER → 2020-01-17 14:39 | Outpatient (BNVA) | payer OTHER, MEDICAID, SELFPAY | PROVIDERS: Family Provider Internal Medicine; PCP Nurse Practitioner; Visit Provider Nurse Practitioner | DX: G43.909 Migraine, unspecified, not intractable, without status migrainosus (principal); R56.9 Unspecified convulsions | CPT/HCPCS: 99203 ==

== ENCOUNTER → 2020-02-12 14:24 | Outpatient (BNVA) | payer OTHER, SELFPAY | PROVIDERS: Family Provider Internal Medicine; PCP Nurse Practitioner; Visit Provider Specialist | DX: G43.711 Chronic migraine without aura, intractable, with status migrainosus (principal); G47.10 Hypersomnia, unspecified | CPT/HCPCS: 95816 ==

== ENCOUNTER → 2020-07-29 13:08 | Outpatient (BNVA) | payer OTHER, MEDICAID, SELFPAY | PROVIDERS: Family Provider Internal Medicine; PCP Nurse Practitioner; Visit Provider Internal Medicine Critical Care Medicine | DX: Z20.828 Contact with and (suspected) exposure to other viral communicable diseases (principal) | CPT/HCPCS: 87635 ==

== ENCOUNTER 2020-08-14 08:10 | Outpatient (RCR) | payer OTHER, SELFPAY | END 2020-08-31 23:59 | disposition home or self-care (01) | LOC: PULRHB 08:10 | PROVIDERS: PCP Nurse Practitioner; Visit Provider Internal Medicine Critical Care Medicine | DX: J44.9 Chronic obstructive pulmonary disease, unspecified (principal) | CPT/HCPCS: 94618; G0424 ==

== ENCOUNTER 2020-09-01 06:00 | Outpatient (RCR) | payer OTHER, SELFPAY | END 2020-09-28 23:59 | disposition home or self-care (01) | LOC: PULRHB 06:00 | PROVIDERS: PCP Nurse Practitioner; Visit Provider Internal Medicine Critical Care Medicine | DX: J44.9 Chronic obstructive pulmonary disease, unspecified (principal) | CPT/HCPCS: G0424 ==

== ENCOUNTER 2021-01-12 17:12 | Emergency (ER) | payer OTHER, MEDICAID, SELFPAY ==
[2021-01-12 17:32] VITALS: BP 131/73; PULSE 85; RESP 22; TEMP 36.8; O2SAT 97; BMI 19.7
--- NOTE | 2021-01-12 17:38 | XRR_ITS ---
PROCEDURE INFORMATION: Exam: XR Chest Exam date and time: 01/12/2021 5:38 PM Age: 65 years old Clinical indication: Pain; Shortness of breath; Chest pressure; Additional info: Chest pain x today TECHNIQUE: Imaging protocol: XR of the chest. Views: 1 view. COMPARISON: CT chest con [id number] 11/26/2019 4:29 PM FINDINGS: Lungs: Expanded lung volumes. Emphysematous lung changes. No focal lung consolidation or lesion. Pleural spaces: Unremarkable. No pleural effusion. No pneumothorax. Heart/Mediastinum: Unremarkable. No cardiomegaly. Bones/joints: Unremarkable. XR/XR chest 1V portable [id number] IMPRESSION: 1. No acute pulmonary disease. 2. Sequela of COPD.
--- NOTE | 2021-01-12 17:39 | ED_ITS ---
Documented by User: Rolly Khan DO 01/13/21 16:44 HPI - Chest Pain General: Chief Complaint: Shortness of Breath/Dyspnea Stated Complaint: COPD, RESP DISTRESS Time Seen by Provider: 01/12/21 17:32 History of Present Illness: HPI narrative: 65-year-old male presents emergency room complaining of shortness of breath and some chest pain. He states he had a heart attack when he was 53 however when I talked him some more he never had a angiogram or bypass done. With his very elevated leg [place]. Today's having chest comfort is worse when he coughs. Chest pain radiates up into his upper chest but not into his back arms or neck. He has had a mildly productive cough. He still does smoke he has a history of COPD. EMS gave 125 Solu-Medrol as well as a breathing treatment which did seem to help some he denies any fevers. Chest pain is worse with deep inspiration and cough MD complaint: chest discomfort Pertinent past history: coronary artery disease (???) Onset (ago): day(s) Timing of current episode: episodic Pain location: substernal Severity: moderate Quality: aching and heaviness Relieving factors: nothing Exacerbating factors: nothing Associated symptoms: Deny abdominal pain, diaphoresis, dyspnea, fever(s), leg edema, nausea, palpitations, sense of impending doom, syncope or vomiting Treatment prior to arrival: none Review of Systems Const: Denies: fever(s) or diaphoresis ENMT: Denies: throat pain, ear or mastoid pain, nasal discharge or nasal congestion Card: Denies: palpitations or syncope Resp: Denies: dyspnea GI: Denies: abdominal pain, nausea or vomiting : Denies: flank pain, dysuria, urinary frequency or urinary urgency Skin/Breast: Denies: rash or pruritus PFSH ED PFSH: Medical History COPD (chronic obstructive pulmonary disease) Depression GERD (gastroesophageal reflux disease) Hepatitis C Treatment status unknown History of migraine headaches Hx of colonic polyps Sessile on colonoscopy 02/16 Hypertension Peptic ulcer disease Gastric ulcer on EGD 02/16 Vitamin D deficiency Surgical History Hx of appendectomy Status post excision of lipoma (~01/2019) Social History Smoking and tobacco status: current every day smoker cigarettes Packs smoked per day: 0.5 Years cigarettes smoked: 45 Smoking risk assessment/counseling performed?: Yes Alcohol intake: current Alcohol intake frequency: holidays/special occasions only Counseling given: No Lives independently: Yes Household members: spouse Housing: House Marital status: Current occupational status: retired History of recent travel: No Current gender identity: Male Physical Exam Const: COMMON NORMALS: no acute distress GENERAL APPEARANCE: cooperative and comfortable ORIENTATION/CONSCIOUSNESS: Yes awake, Yes oriented to person, Yes oriented to place and Yes oriented to time HENMT: COMMON NORMALS: normocephalic, atraumatic, hearing grossly normal bilaterally and external ears normal HEAD & SCALP: normocephalic and atraumatic EXTERNAL EAR: Yes external ears normal Neck/C-Spine: COMMON NORMALS: no JVD Resp: COMMON NORMALS: normal respiratory effort, No retractions, No use of accessory muscles and clear to auscultation bilaterally AUSCULTATION: clear to auscultation bilaterally Cardio: COMMON NORMALS: no JVD, regular rate, regular rhythm and No murmurs present (Cardio) RATE: regular rate RHYTHM: regular rhythm GI: COMMON NORMALS: Soft to palpation and No hepatosplenomegaly present AUSCULTATION: Yes normoactive bowel sounds PALPATION: Yes Soft to palpation, No Tenderness to palpation present (GI), No Guarding due to palpation present (GI) and Yes No hepatosplenomegaly present Extremity: COMMON NORMALS: normal to inspection, capillary refill normal, no clubbing, cyanosis or edema, no calf tenderness and no pedal edema Neuro: SENSORIUM/ORIENTATION: Yes oriented to person, Yes oriented to place and Yes oriented to time Skin: COMMON NORMALS: no rashes or lesions noted GENERAL SKIN EXAM: no rashes or lesions noted Course Vital Signs: Vital signs: Vital Signs Temperature 98.2 F 01/12/21 17:32 Pulse Rate 86 01/12/21 20:15 Respiratory Rate 27 H 01/12/21 20:15 Blood Pressure 129/89 01/12/21 20:15 Pulse Oximetry 93 01/12/21 20:15 MDM - Chest Pain MDM Narrative: Medical decision making narrative: Patient seen initially initial labs ordered care turned over to Dr. Pinzon change of shift see his notes for final diagnosis and disposition. Lab Data: Labs: Lab Results 01/12/21 01/12/21 01/12/21 Range/Units 17:50 17:50 17:50 WBC 6.7 (4.0-10.0) 10^3/ uL RBC 4.82 (4.1-5.3) 10^6/u L Hgb 14.3 (11.7-16.6) g/dL Hct 44.4 (42.0-52.0) % MCV 92.1 (80-94) fL MCH 29.7 (28.0-34.0) pg MCHC 32.2 (30.0-36.0) g/dL RDW 12.4 (12.1-15.1) % Plt Count 323 (130-400) 10^3/c mm MPV 9.7 (7.4-10.4) fL Neut % (Auto) 76.8 % Lymph % (Auto) 14.8 % [place] % (Auto) 3.7 % Eos % (Auto) 3.1 % Baso % (Auto) 1.5 % Neut # (Auto) 5.13 (1.8-7.7) 10^3/u L Lymph # (Auto) 1.0 (0.8-4.8) 10^3/u L [place] # (Auto) 0.3 (0.2-0.9) 10^3/u L Eos # (Auto) 0.2 (0.0-0.8) 10^3/u L Baso # (Auto) 0.1 (0.0-0.1) 10^3/u L Nucleated RBC % (a uto) 0 % Nucleated RBCs # 0.0 /100WBC PT (12.1-14.9) SECO NDS INR (0.8-1.2) APTT (23.9-36.7) SECO NDS Sodium 140 (136-145) mmol/L Potassium 4.8 (3.5-5.1) mmol/L Chloride 103 (98-107) mmol/L Carbon Dioxide 29 (22-29) mmol/L Anion Gap 12.8 (5-19) BUN 10 (8-23) mg/dL Creatinine 0.9 (0.7-1.2) mg/dL GFR Calculation 85.0 L (90-130) mL/min Glucose 121 H (65-115) mg/dL Calculated Osmolal ity 290 (285-295) mOsm/k g Calcium 8.9 (8.5-10.5) mg/dL Total Bilirubin 0.2 (0.15-1.2) mg/dL AST 12 (0-40) U/L ALT 9 (0-41) U/L Alkaline Phosphata se 92 (40-130) IU/L Creatine Kinase 112 (39-308) U/L Troponin T Baselin e 9 (0-15) ng/L Total Protein 6.3 L (6.6-8.7) g/dL Albumin 4.2 (3.5-5.2) g/dL Globulin 2.1 (1.3-4.6) g/dL 01/12/21 Range/Units 18:36 WBC (4.0-10.0) 10^3/ uL RBC (4.1-5.3) 10^6/u L Hgb (11.7-16.6) g/dL Hct (42.0-52.0) % MCV (80-94) fL MCH (28.0-34.0) pg MCHC (30.0-36.0) g/dL RDW (12.1-15.1) % Plt Count (130-400) 10^3/c mm MPV (7.4-10.4) fL Neut % (Auto) % Lymph % (Auto) % [place] % (Auto) % Eos % (Auto) % Baso % (Auto) % Neut # (Auto) (1.8-7.7) 10^3/u L Lymph # (Auto) (0.8-4.8) 10^3/u L [place] # (Auto) (0.2-0.9) 10^3/u L Eos # (Auto) (0.0-0.8) 10^3/u L Baso # (Auto) (0.0-0.1) 10^3/u L Nucleated RBC % (a uto) % Nucleated RBCs # /100WBC PT 13.50 (12.1-14.9) SECO NDS INR 1.00 (0.8-1.2) APTT 31.7 (23.9-36.7) SECO NDS Sodium (136-145) mmol/L Potassium (3.5-5.1) mmol/L Chloride (98-107) mmol/L Carbon Dioxide (22-29) mmol/L Anion Gap (5-19) BUN (8-23) mg/dL Creatinine (0.7-1.2) mg/dL GFR Calculation (90-130) mL/min Glucose (65-115) mg/dL Calculated Osmolal ity (285-295) mOsm/k g Calcium (8.5-10.5) mg/dL Total Bilirubin (0.15-1.2) mg/dL AST (0-40) U/L ALT (0-41) U/L Alkaline Phosphata se (40-130) IU/L Creatine Kinase (39-308) U/L Troponin T Baselin e (0-15) ng/L Total Protein (6.6-8.7) g/dL Albumin (3.5-5.2) g/dL Globulin (1.3-4.6) g/dL Discharge Plan Discharge Patient Disposition: Home Clinical Impression: COPD (chronic obstructive pulmonary disease), Dyspnea, Anterior pleuritic pain Condition: Stable Prescriptions: New Tessalon Perles 100 mg capsule 100 mg PO BID PRN (Reason: cough) Qty: 20 RF: 0 diclofenac sodium 75 mg tablet,delayed release (DR/EC) 75 mg PO BID PRN (Reason: pain) Qty: 20 RF: 0 azithromycin 250 mg tablet 250 mg PO DAILY 6 Days RF: 0 albuterol sulfate 90 mcg/actuation HFA aerosol inhaler 2 puff inhalation Q4H PRN (Reason: shortness of breath or wheezing) Qty: 8.5 RF: 0 No Action budesonide-formoterol [Symbicort] 160-4.5 mcg/actuation HFA aerosol inhaler 2 puff INHALATION BID RF: 0 Combivent Respimat 20-100 mcg/actuation mist 1 puff INHALATION Q6H RF: 0 azelastine 0.15 % (205.5 mcg) spray,non-aerosol 1 spray INTRANASAL BID 30 Days Qty: 30 RF: 4 albuterol sulfate 2.5 mg /3 mL (0.083 %) solution for nebulization 2.5 mg inhalation Q4H PRNRF: 0 topiramate [Topamax] 100 mg tablet 100 mg PO BID Qty: 60 RF: 1 Spiriva with HandiHaler 18 mcg Capsule, W/Inhalation Device 1 cap INHALATION DAILY RF: 0 aspirin 81 mg Tablet,Delayed Release (Dr/Ec) 81 mg PO DAILY RF: 0 Vitamin D3 25 mcg (1,000 unit) Capsule 25 mcg PO DAILY RF: 0 Voltaren 1 % Gel 2 g TOPICAL QID PRN (Reason: NECK PAIN) RF: 0 albuterol sulfate 2.5 mg /3 mL (0.083 %) Solution For Nebulization 2.5 mg INHALATION Q4H PRN (Reason: Cough) RF: 0 sumatriptan succinate 50 mg Tablet 50 mg PO Q3D RF: 0 trazodone 100 mg Tablet 100 mg PO BEDTIME RF: 0 omeprazole 20 mg Capsule,Delayed Release(Dr/Ec) 20 mg PO BID RF: 0 Discharge Orders: Discharge ED (Routine); Ordered 01/12/21 Ordered By: Angel Luis Iglesias Referrals: Mar Burton FNP [Primary Care Provider] - Discharge Diet: Advance as tolerated Discharge Activity: Resume usual activity Patient Instructions: Opioid Safety Activity Restrictions/Additional Instructions: Patient will be discharged home on a Z-Gunnar ProAir puffer inhaler and Tessalon Perles. Patient is encouraged to stop smoking. Follow-up with primary care physician in 2 to 3 days. Patient is to return to the emergency department if symptoms fail to improve or worsen. Patient states understanding Coding Level of Care Code ED Nutrition Services Assistant for Chg Fwd Exam Comprehensive Documented by User: Angel Luis Iglesias MD 01/12/21 19:24 HPI - Chest Pain General: Chief Complaint: Shortness of Breath/Dyspnea Stated Complaint: COPD, RESP DISTRESS Time Seen by Provider: 01/12/21 17:32 History of Present Illness: Associated symptoms: Reports dyspnea; Deny abdominal pain, fever(s), nausea, palpitations or vomiting Review of Systems General: Reports: 10 or more systems reviewed and unremarkable except in HPI and below Const: Denies: fever(s), chills, body aches or fatigue Eyes: Denies: change in vision or blurry vision ENMT: Denies: throat pain, hoarseness or mouth pain Card: Reports: chest pain; Denies: palpitations, irregular heart rhythm, edema, swelling of feet/ankles or lightheadedness Resp: Reports: dyspnea and non-productive cough; Denies: productive cough, wheezing or pain on inspiration GI: Denies: abdominal pain, nausea or vomiting : Denies: flank pain, dysuria, urinary frequency, urinary urgency or urinary hesitancy Musc: Denies: neck pain, back pain, extremity pain, extremity swelling, joint pain, joint swelling, joint redness, joint warmth or limited range of motion Skin/Breast: Denies: rash, pruritus, erythema or skin tenderness Neuro: Denies: headache(s), numbness in extremities or weakness in extremities Psych: Denies: anxiety or depression PFSH ED PFSH: Medical History COPD (chronic obstructive pulmonary disease) Depression GERD (gastroesophageal reflux disease) Hepatitis C Treatment status unknown History of migraine headaches Hx of colonic polyps Sessile on colonoscopy 02/16 Hypertension Peptic ulcer disease Gastric ulcer on EGD 02/16 Vitamin D deficiency Surgical History Hx of appendectomy Status post excision of lipoma (~01/2019) Social History Smoking and tobacco status: current every day smoker cigarettes Packs smoked per day: 0.5 Years cigarettes smoked: 45 Smoking risk assessment/counseling performed?: Yes Alcohol intake: current Alcohol intake frequency: holidays/special occasions only Counseling given: No Lives independently: Yes Household members: spouse Housing: House Marital status: Current occupational status: retired History of recent travel: No Current gender identity: Male Course Reevaluation(s): Reevaluation #1: This patient is a 65-year-old male who is stable and has no chest pain at this time. Patient only describes pleuritic chest pain with a cough. Patient does not wear oxygen at home. Patient on room air is 97% does not appear to be acutely short of breath at this time. EKG is unremarkable labs unremarkable. Patient will be discharged home on a Z-Gunnar ProAir puffer inhaler and Tessalon Perles. Patient is encouraged to stop smoking. Follow-up with primary care physician in 2 to 3 days. Patient is to return to the emergency department if symptoms fail to improve or worsen. Odalis nt states understanding Time: 19:19 Vital Signs: Vital signs: Vital Signs Temperature 98.2 F 01/12/21 17:32 Pulse Rate 86 01/12/21 20:15 Respiratory Rate 27 H 01/12/21 20:15 Blood Pressure 129/89 01/12/21 20:15 Pulse Oximetry 93 01/12/21 20:15 MDM - Chest Pain MDM Narrative: Medical decision making narrative: 65-year-old male presents emergency room complaining of shortness of breath and some chest pain. He states he had a heart attack when he was 53 however when I talked him some more he never had a angiogram or bypass done. With his very elevated leg [place]. Today's having chest comfort is worse when he coughs. Chest pain radiates up into his upper chest but not into his back arms or neck. He has had a mildly productive cough. He still does smoke he has a history of COPD. EMS gave 125 Solu-Medrol as well as a breathing treatment which did seem to help some he denies any fevers. Chest pain is worse with deep inspiration and cough This patient is a 65-year-old male who is stable and has no chest pain at this time. Patient only describes pleuritic chest pain with a cough. Patient does not wear oxygen at home. Patient on room air is 97% does not appear to be acutely short of breath at this time. EKG is unremarkable labs unremarkable. Patient will be discharged home on a Z-Gunnar ProAir puffer inhaler and Tessalon Perles. Patient is encouraged to stop smoking. Follow-up with primary care physician in 2 to 3 days. Patient is to return to the emergency department if symptoms fail to improve or worsen. Patient states understanding Lab Data: Labs: Lab Results 01/12/21 01/12/21 01/12/21 Range/Units 17:50 17:50 17:50 WBC 6.7 (4.0-10.0) 10^3/ uL RBC 4.82 (4.1-5.3) 10^6/u L Hgb 14.3 (11.7-16.6) g/dL Hct 44.4 (42.0-52.0) % MCV 92.1 (80-94) fL MCH 29.7 (28.0-34.0) pg MCHC 32.2 (30.0-36.0) g/dL RDW 12.4 (12.1-15.1) % Plt Count 323 (130-400) 10^3/c mm MPV 9.7 (7.4-10.4) fL Neut % (Auto) 76.8 % Lymph % (Auto) 14.8 % [place] % (Auto) 3.7 % Eos % (Auto) 3.1 % Baso % (Auto) 1.5 % Neut # (Auto) 5.13 (1.8-7.7) 10^3/u L Lymph # (Auto) 1.0 (0.8-4.8) 10^3/u L [place] # (Auto) 0.3 (0.2-0.9) 10^3/u L Eos # (Auto) 0.2 (0.0-0.8) 10^3/u L Baso # (Auto) 0.1 (0.0-0.1) 10^3/u L Nucleated RBC % (a uto) 0 % Nucleated RBCs # 0.0 /100WBC PT (12.1-14.9) SECO NDS INR (0.8-1.2) APTT (23.9-36.7) SECO NDS Sodium 140 (136-145) mmol/L Potassium 4.8 (3.5-5.1) mmol/L Chloride 103 (98-107) mmol/L Carbon Dioxide 29 (22-29) mmol/L Anion Gap 12.8 (5-19) BUN 10 (8-23) mg/dL Creatinine 0.9 (0.7-1.2) mg/dL GFR Calculation 85.0 L (90-130) mL/min Glucose 121 H (65-115) mg/dL Calculated Osmolal ity 290 (285-295) mOsm/k g Calcium 8.9 (8.5-10.5) mg/dL Total Bilirubin 0.2 (0.15-1.2) mg/dL AST 12 (0-40) U/L ALT 9 (0-41) U/L Alkaline Phosphata se 92 (40-130) IU/L Creatine Kinase 112 (39-308) U/L Troponin T Baselin e 9 (0-15) ng/L Total Protein 6.3 L (6.6-8.7) g/dL Albumin 4.2 (3.5-5.2) g/dL Globulin 2.1 (1.3-4.6) g/dL 01/12/21 Range/Units 18:36 WBC (4.0-10.0) 10^3/ uL RBC (4.1-5.3) 10^6/u L Hgb (11.7-16.6) g/dL Hct (42.0-52.0) % MCV (80-94) fL MCH (28.0-34.0) pg MCHC (30.0-36.0) g/dL RDW (12.1-15.1) % Plt Count (130-400) 10^3/c mm MPV (7.4-10.4) fL Neut % (Auto) % Lymph % (Auto) % [place] % (Auto) % Eos % (Auto) % Baso % (Auto) % Neut # (Auto) (1.8-7.7) 10^3/u L Lymph # (Auto) (0.8-4.8) 10^3/u L [place] # (Auto) (0.2-0.9) 10^3/u L Eos # (Auto) (0.0-0.8) 10^3/u L Baso # (Auto) (0.0-0.1) 10^3/u L Nucleated RBC % (a uto) % Nucleated RBCs # /100WBC PT 13.50 (12.1-14.9) SECO NDS INR 1.00 (0.8-1.2) APTT 31.7 (23.9-36.7) SECO NDS Sodium (136-145) mmol/L Potassium (3.5-5.1) mmol/L Chloride (98-107) mmol/L Carbon Dioxide (22-29) mmol/L Anion Gap (5-19) BUN (8-23) mg/dL Creatinine (0.7-1.2) mg/dL GFR Calculation (90-130) mL/min Glucose (65-115) mg/dL Calculated Osmolal ity (285-295) mOsm/k g Calcium (8.5-10.5) mg/dL Total Bilirubin (0.15-1.2) mg/dL AST (0-40) U/L ALT (0-41) U/L Alkaline Phosphata se (40-130) IU/L Creatine Kinase (39-308) U/L Troponin T Baselin e (0-15) ng/L Total Protein (6.6-8.7) g/dL Albumin (3.5-5.2) g/dL Globulin (1.3-4.6) g/dL Imaging Data^: CXR: Attestation: I personally reviewed and interpreted this imaging study as follows: Radiologist's impression: IMPRESSION: 1. No acute pulmonary disease. 2. Sequela of COPD. EKG Data^: EKG 1: Attestation: I personally reviewed and interpreted this EKG as follows: EKG interpretation date: 01/12/21 EKG interpretation time: 18:02 Interpretation: Sinus rhythm heart rate 79 normal EKG Discharge Plan Discharge Patient Disposition: Home Clinical Impression: COPD (chronic obstructive pulmonary disease), Dyspnea, Anterior pleuritic pain Condition: Stable Prescriptions: New Tessalon Perles 100 mg capsule 100 mg PO BID PRN (Reason: cough) Qty: 20 RF: 0 diclofenac sodium 75 mg tablet,delayed release (DR/EC) 75 mg PO BID PRN (Reason: pain) Qty: 20 RF: 0 azithromycin 250 mg tablet 250 mg PO DAILY 6 Days RF: 0 albuterol sulfate 90 mcg/actuation HFA aerosol inhaler 2 puff inhalation Q4H PRN (Reason: shortness of breath or wheezing) Qty: 8.5 RF: 0 No Action budesonide-formoterol [Symbicort] 160-4.5 mcg/actuation HFA aerosol inhaler 2 puff INHALATION BID RF: 0 Combivent Respimat 20-100 mcg/actuation mist 1 puff INHALATION Q6H RF: 0 azelastine 0.15 % (205.5 mcg) spray,non-aerosol 1 spray INTRANASAL BID 30 Days Qty: 30 RF: 4 albuterol sulfate 2.5 mg /3 mL (0.083 %) solution for nebulization 2.5 mg inhalation Q4H PRNRF: 0 topiramate [Topamax] 100 mg tablet 100 mg PO BID Qty: 60 RF: 1 Spiriva with HandiHaler 18 mcg Capsule, W/Inhalation Device 1 cap INHALATION DAILY RF: 0 aspirin 81 mg Tablet,Delayed Release (Dr/Ec) 81 mg PO DAILY RF: 0 Vitamin D3 25 mcg (1,000 unit) Capsule 25 mcg PO DAILY RF: 0 Voltaren 1 % Gel 2 g TOPICAL QID PRN (Reason: NECK PAIN) RF: 0 albuterol sulfate 2.5 mg /3 mL (0.083 %) Solution For Nebulization 2.5 mg INHALATION Q4H PRN (Reason: Cough) RF: 0 sumatriptan succinate 50 mg Tablet 50 mg PO Q3D RF: 0 trazodone 100 mg Tablet 100 mg PO BEDTIME RF: 0 omeprazole 20 mg Capsule,Delayed Release(Dr/Ec) 20 mg PO BID RF: 0 Discharge Orders: Discharge ED (Routine); Ordered 01/12/21 Ordered By: Angel Luis Iglesias Referrals: Mar Burton FNP [Primary Care Provider] - Discharge Diet: Advance as tolerated Discharge Activity: Resume usual activity Patient Instructions: Opioid Safety Activity Restrictions/Additional Instructions: Patient will be discharged home on a Z-Gunnar ProAir puffer inhaler and Tessalon Perles. Patient is encouraged to stop smoking. Follow-up with primary care physician in 2 to 3 days. Patient is to return to the emergency department if symptoms fail to improve or worsen. Patient states understanding Coding Level of Care Code ED Nutrition Services Assistant for Oli Fwd Exam Comprehensive
[2021-01-12 18:03] LABS: Basophils # 0.1 10^3/uL (0.0-0.1); Basophils % 1.5 %; Eosinophils # 0.2 10^3/uL (0.0-0.8); Eosinophils % 3.1 %; Hematocrit 44.4 % (42.0-52.0); Hemoglobin 14.3 g/dL (11.7-16.6); Lymphocytes % 14.8 %; Mean Corpuscular HGB Conc 32.2 g/dL (30.0-36.0); Mean Corpuscular Hemoglobin 29.7 pg (28.0-34.0); Mean Corpuscular Volume 92.1 fL (80-94); Mean Platelet Volume 9.7 fL (7.4-10.4); Monocytes # 0.3 10^3/uL (0.2-0.9); Monocytes % 3.7 %; Neutrophils # 5.13 10^3/uL (1.8-7.7); Neutrophils % 76.8 %; Nucleated Red Blood Cells % 0 %; Platelet Count 323 10^3/cmm (130-400); Red Blood Count 4.82 10^6/uL (4.1-5.3); Red Cell Distribution Width 12.4 % (12.1-15.1); White Blood Count 6.7 10^3/uL (4.0-10.0)
[2021-01-12 18:20] LABS: Troponin(5th) Baseline 9 ng/L (0-15)
[2021-01-12 18:21] LABS: Alanine Aminotransferase 9 U/L (0-41); Albumin Level 4.2 g/dL (3.5-5.2); Alkaline Phosphatase 92 IU/L (40-130); Anion Gap 12.8 (5-19); Aspartate Amino Transferase 12 U/L (0-40); Blood Urea Nitrogen 10 mg/dL (8-23); Calcium 8.9 mg/dL (8.5-10.5); Carbon Dioxide 29 mmol/L (22-29); Chloride 103 mmol/L (98-107); Creatine Phosphokinase 112 U/L (39-308); Globulin 2.1 g/dL (1.3-4.6); Glucose 121 mg/dL (65-115); Osmolality Calculated 290 mOsm/kg (285-295); Potassium 4.8 mmol/L (3.5-5.1); Sodium 140 mmol/L (136-145); Total Bilirubin 0.2 mg/dL (0.15-1.2); Total Protein 6.3 g/dL (6.6-8.7)
[2021-01-12 19:13] LABS: Partial Thromboplastin Time 31.7 SECONDS (23.9-36.7)
[2021-01-12 20:15] VITALS: BP 129/89; PULSE 86; RESP 27; O2SAT 93
--- NOTE | 2021-01-12 23:38 | ECG_ITS ---
[facility] Test Date: 2021-01-12 Pat Name: Naren Pritchard Department: Room: Gender: Male Dialysis Social Worker: : 1955 Requested By: Rolly Engel Order Number: [id number] Aaron MD: Concetta Camacho M.D. Measurements Intervals [place] Rate: 79 P: 82 MT: 195 QRS: 86 QRSD: 89 T: 70 QT: 353 QTc: 406 Interpretive Statements SINUS RHYTHM Compared to ECG 11/26/2019 03:24:54 No significant changes Electronically Signed On 01-12-2021 22:54:37 CDT by Concetta Camacho M.D. [email or web address]
== END 2021-01-12 20:15 | disposition home or self-care (01) ==
PROVIDERS: Family Medicine; Emergency Provider Emergency Medicine; PCP Nurse Practitioner
DX: J44.9 Chronic obstructive pulmonary disease, unspecified (principal); R07.81 Pleurodynia; R06.00 Dyspnea, unspecified; Z79.82 Long term (current) use of aspirin; Z86.19 Personal history of other infectious and parasitic diseases; I10 Essential (primary) hypertension; F17.210 Nicotine dependence, cigarettes, uncomplicated
CPT/HCPCS: 36415; 71045; 80053; 82550; 84484; 85025; 85610; 85730; 93005; 99283

== ENCOUNTER 2021-03-13 08:38 | Emergency (ER) | payer OTHER, MEDICAID, SELFPAY ==
[2021-03-13 08:41] VITALS: BP 133/61; PULSE 65; RESP 15; TEMP 36.6; O2SAT 90; BMI 19.2
--- NOTE | 2021-03-13 09:01 | ED_ITS ---
HPI - Back Pain/Injury General: Chief Complaint: Back Pain/Injury Stated Complaint: LOW BACK PAIN Time Seen by Provider: 03/13/21 08:51 History of Present Illness: HPI Narrative: Patient arrived via ambulance with complaint of low back pain. Patient has a history of chronic low back pain also has a history of kidney stones. Patient states that his pain radiates across his back he says it hurts to get up out of bed hurts to set up to ambulate he said he has to be hunched over. Denies any problems urinating denies any hematuria. Might have hurt his back earlier is weak lifting some stuff. MD elicited complaint: back pain Pertinent past history: prior back pain Onset (ago): hour(s) Timing: improved Severity: moderate Similar Symptoms Previously: Yes Quality: aching Location: lumbar spine Exacerbating factors: movement, sitting upright and walking Relieving factors: immobilization Associated symptoms: Reports no associated symptoms; Deny abdominal pain, chills, fever(s), nausea or vomiting Work related injury: No Review of Systems Const: Denies: fever(s), chills or body aches Eyes: Denies: change in vision or blurry vision ENMT: Denies: throat pain or nasal congestion Card: Denies: chest pain or dyspnea on exertion Resp: Denies: dyspnea, productive cough or non-productive cough GI: Denies: abdominal pain, nausea or vomiting : Denies: difficulty urinating Musc: Reports: back pain; Denies: extremity pain Skin/Breast: Denies: rash Neuro: Denies: headache(s) Psych: Denies: anxiety or depression Dio/Lymph: Denies: easy bruising PFSH ED PFSH: Medical History COPD (chronic obstructive pulmonary disease) Depression GERD (gastroesophageal reflux disease) Hepatitis C Treatment status unknown History of migraine headaches Hx of colonic polyps Sessile on colonoscopy 02/16 Hypertension Peptic ulcer disease Gastric ulcer on EGD 02/16 Vitamin D deficiency Surgical History History of colonoscopy with polypectomy 2018 Hx of appendectomy Status post excision of lipoma (~01/2019) Social History Smoking and tobacco status: current every day smoker cigarettes Packs smoked per day: 0.5 Years cigarettes smoked: 45 Smoking risk assessment/counseling performed?: Yes Alcohol intake: current Alcohol intake frequency: holidays/special occasions only Counseling given: No Lives independently: Yes Household members: spouse Housing: House Marital status: Current occupational status: retired History of recent travel: No Current gender identity: Male Physical Exam Const: COMMON NORMALS: no acute distress, average body habitus and patient oriented x3 HENMT: COMMON NORMALS: normocephalic HEAD & SCALP: normal to inspection and normocephalic FACE & SINUS: normal facial exam Eye: COMMON NORMALS: conjunctivae normal GENERAL EYE: appearance normal, both eyes and all related structures CONJUNCTIVA: Yes conjunctivae normal Neck/C-Spine: COMMON NORMALS: no JVD Chest: COMMONS NORMALS: normal inspection of the chest Resp: COMMON NORMALS: normal respiratory effort and clear to auscultation bilaterally AUSCULTATION: clear to auscultation bilaterally Cardio: COMMON NORMALS: no JVD, regular rate and regular rhythm RATE: regular rate RHYTHM: regular rhythm GI: COMMON NORMALS: Normal to inspection, nondistended, normoactive bowel s ounds present Back/Pelvis: LUMBAR SPINE/LOWER BACK: Yes normal to inspection, Yes pain with ROM, No lumbar spinal tenderness, No paraspinal muscle tenderness, Yes paraspinal muscle spasm, No straight leg raise negative bilaterally, Yes straight leg raise positive right and Yes straight leg raise positive left Extremity: COMMON NORMALS: normal to inspection and full ROM Neuro: COMMON NORMALS: patient oriented x3 Course Vital Signs: Vital signs: Vital Signs Temperature 97.8 F 03/13/21 08:41 Pulse Rate 65 03/13/21 08:41 Respiratory Rate 15 03/13/21 08:41 Blood Pressure 133/61 03/13/21 08:41 Pulse Oximetry 90 03/13/21 08:41 MDM - Back Pain/Injury MDM Narrative: Medical decision making narrative: Patient with low back symptoms with pain that radiates across his back has pain with movement has pain with some bilateral straight leg lift. Has no kidney stone symptoms. Patient is not nauseous has not vomited has pain with range of motion. Discharge Plan Discharge Patient Disposition: Home Clinical Impression: Low back pain Qualifiers: Chronicity: chronic Back pain laterality: bilateral Sciatica presence: without sciatica Qualified Code(s): M54.5 - Low back pain Condition: Stable Prescriptions: New tramadol 50 mg tablet 50 mg PO TID PRN (Reason: pain) Qty: 14 RF: 0 Celebrex 100 mg capsule 100 mg PO BID Qty: 20 RF: 0 prednisone 20 mg tablet 20 mg PO DAILY Qty: 7 RF: 0 No Action azelastine 0.15 % (205.5 mcg) spray,non-aerosol 1 spray INTRANASAL BID 30 Days Qty: 30 RF: 4 budesonide-formoterol [Symbicort] 160-4.5 mcg/actuation HFA aerosol inhaler 2 puff INHALATION BID Qty: 10.2 RF: 3 Spiriva with HandiHaler 18 mcg capsule, w/inhalation device 1 cap INHALATION DAILY Qty: 30 RF: 3 albuterol sulfate [ProAir HFA] 90 mcg/actuation HFA aerosol inhaler See Rx Instructions .ROUTE .COMPLEX Qty: 8.5 RF: 3 aspirin 81 mg Tablet,Delayed Release (Dr/Ec) 81 mg PO DAILY RF: 0 Vitamin D3 25 mcg (1,000 unit) Capsule 25 mcg PO DAILY RF: 0 Voltaren 1 % Gel 2 g TOPICAL QID PRN (Reason: NECK PAIN) RF: 0 sumatriptan succinate 50 mg Tablet 50 mg PO Q3D RF: 0 trazodone 100 mg Tablet 100 mg PO BEDTIME RF: 0 omeprazole 20 mg Capsule,Delayed Release(Dr/Ec) 20 mg PO BID RF: 0 Tessalon Perles 100 mg capsule 100 mg PO BID PRN (Reason: cough) Qty: 20 RF: 0 diclofenac sodium 75 mg tablet,delayed release (DR/EC) 75 mg PO BID PRN (Reason: pain) Qty: 20 RF: 0 Discharge Orders: Discharge ED (Routine); Ordered 03/13/21 Ordered By: Edin Pardo Referrals: Ellie Irene MD [Primary Care Provider] - Discharge Diet: Usual diet Discharge Activity: Increase activity as tolerated Patient Instructions: Chronic Back Pain (ED), Opioid Safety Activity Restrictions/Additional Instructions: Follow-up with medical provider as directed. Take medications as prescribed. Return to the ER or your medical provider if condition worsens. Please read and understand discharge instructions. If any questions ask please. Coding Level of Care Code ED Search Manager for Chg Fwd Exam Comprehensive
== END 2021-03-13 09:09 | disposition home or self-care (01) ==
PROVIDERS: Emergency Provider Nurse Practitioner Family; PCP Family Medicine
DX: M54.5 Low back pain (principal); J44.9 Chronic obstructive pulmonary disease, unspecified; I10 Essential (primary) hypertension; F17.210 Nicotine dependence, cigarettes, uncomplicated
CPT/HCPCS: 96374; 99283; J2930

== ENCOUNTER 2021-04-29 08:41 | Outpatient (CLI) | payer OTHER, SELFPAY | END 2021-04-29 08:42 | disposition home or self-care (01) | LOC: SLEEP 08:42 | PROVIDERS: PCP Family Medicine; Visit Provider Internal Medicine Critical Care Medicine | DX: J44.9 Chronic obstructive pulmonary disease, unspecified (principal) | CPT/HCPCS: 94762 ==

== ENCOUNTER 2021-05-09 18:24 | Observation (INO) | payer OTHER, MEDICAID, SELFPAY ==
[2021-05-09] VITALS (7 sets, daily range): BP systolic 117–153; BP diastolic 64–93; PULSE 76–103; RESP 19–24; TEMP 36.9–37; O2SAT 94–99; BMI 18.8
--- NOTE | 2021-05-09 18:47 | XRR_ITS ---
PROCEDURE INFORMATION: Exam: XR Chest Exam date and time: 05/09/2021 6:47 PM Age: 65 years old Clinical indication: Dyspnea; Additional info: Cp SOB TECHNIQUE: Imaging protocol: XR of the chest. Views: 1 view. COMPARISON: CR XR chest 1V portable [id number] 01/12/2021 5:37 PM FINDINGS: Lungs: Emphysema. Hyperinflated lungs. No focal airspace opacities. Pleural spaces: Unremarkable. No pleural effusion. No pneumothorax. Heart/Mediastinum: Unremarkable. No cardiomegaly. Bones/joints: Unremarkable. XR/XR chest 1V portable [id number] IMPRESSION: 1. No focal acute airspace disease identified. 2. No change from comparison. Radiation Dose CTDIVOL = (mGy): DLP = (mGy-cm)
--- NOTE | 2021-05-09 18:50 | ED_ITS ---
HPI - SOB/Dyspnea General: Chief Complaint: Shortness of Breath/Dyspnea Stated Complaint: SOB Time Seen by Provider: 05/09/21 18:30 History of Present Illness: HPI Narrative: 65-year-old gentleman long history of COPD. He presents shortness of breath increasing over the last couple of days. He has some left-sided pleuritic type chest pain as well. Pain is worse with deep breathing. Denies fever. He notes clear to yellow sputum production with his cough. Has been wheezing. Has been using breathing treatments, inhalers, and his 's oxygen at home at 2 L. MD elicited complaint: shortness of breath, cough and chest pain Pertinent past history: COPD Onset (ago): day(s) Timing: constant and progressively worsening Severity: moderate Exacerbating factors: exertion, coughing and inspiration Relieving factors: oxygen and bronchodilators Known history of: COPD Associated symptoms: Reports chest congestion, chest pain and cough; Deny abdominal pain, diaphoresis, dizziness, fever(s), hemoptysis, nausea, rash or vomiting Treatment prior to arrival: oxygen and bronchodilator Review of Systems Const: Denies: fever(s) or diaphoresis Card: Reports: chest pain Resp: Reports: chest congestion; Denies: hemoptysis GI: Denies: abdominal pain, nausea or vomiting Neuro: Denies: dizziness PFSH ED PFSH: Medical History (Updated 05/09/21 @ 23:15 by Feliz Beck DO) COPD (chronic obstructive pulmonary disease) Depression GERD (gastroesophageal reflux disease) Hepatitis C Treatment status unknown History of migraine headaches Hx of colonic polyps Sessile on colonoscopy 02/16 Hypertension Peptic ulcer disease Gastric ulcer on EGD 02/16 Vitamin D deficiency Surgical History History of colonoscopy with polypectomy 2018 Hx of appendectomy Status post excision of lipoma (~01/2019) Social History Smoking risk assessment/counseling performed?: Yes Alcohol intake: current Alcohol intake frequency: holidays/special occasions only Counseling given: No Lives independently: Yes Household members: spouse Housing: House Marital status: Current occupational status: retired History of recent travel: No Current gender identity: Male Physical Exam Const: GENERAL APPEARANCE: cooperative, ill appearing and frail appearing Eye: COMMON NORMALS: Equal, round and reactive pupils present and EOMs intact bilaterally PUPIL: Yes Equal, round and reactive pupils present Chest: COMMONS NORMALS: normal inspection of the chest Resp: EFFORT & INSPECTION: Yes tachypneic, Yes labored and Yes uses accessory muscles AUSCULTATION: rhonchi and wheezes Cardio: COMMON NORMALS: regular rate and regular rhythm RATE: regular rate RHYTHM: regular rhythm GI: COMMON NORMALS: Normal to inspection, nondistended, normoactive bowel sounds present and Soft to palpation PALPATION: Yes Soft to palpation Extremity: COMMON NORMALS: no pedal edema Course Consultations: Consultation #1: lety Time: 23:15 Vital Signs: Vital signs: Vital Signs Temperature 98.6 F 05/09/21 18:28 Pulse Rate 101 H 05/09/21 22:49 Respiratory Rate 19 H 05/09/21 22:49 Blood Pressure 147/87 05/09/21 22:49 Pulse Oximetry 97 05/09/21 22:49 MDM - SOB/Dyspnea MDM Narrative: Medical decision making narrative: 65-year-old man with a history of COPD. Chest x-ray is negative for infiltrate. Rapid COVID-19 test is negative. PCR is pending. White blood cell count is 5.8. His D-dimer is not significantly elevated. BMP is normal. pH is 7.25 with a PCO2 of 50. He is much improved after DuoNeb treatment though. He is received Solu-Medrol here as well. He will come in for COPD exacerbation Lab Data: Labs: Lab Results 05/09/21 05/09/21 05/09/21 18:47 18:47 18:47 WBC 5.8 10^3/uL 10^3/ uL (4.0-10.0) RBC 5.18 10^6/uL 10^6 /uL (4.1-5.3) Hgb 14.8 g/dL g/dL (11.7-16.6) Hct 47.8 % % (42.0-52.0) MCV 92.3 fl fl (80-94) MCH 28.6 pg pg (28.0-34.0) MCHC 31.0 g/dL g/dL (30.0-36.0) RDW 13.1 % % (12.1-15.1) Plt Count 293 10^3/cmm 10^3 /cmm (130-400) MPV 9.7 fL fL (7.4-10.4) Neut % (Auto) 68.8 % % Lymph % (Auto) 14.5 % % [place] % (Auto) 13.4 % % Eos % (Auto) 1.6 % % Baso % (Auto) 1.4 % % Neut # (Auto) 3.99 10^3/uL 10^3 /uL (1.8-7.7) Lymph # (Auto) 0.8 10^3/uL 10^3/ uL (0.8-4.8) [place] # (Auto) 0.8 10^3/uL 10^3/ uL (0.2-0.9) Eos # (Auto) 0.1 10^3/uL 10^3/ uL (0.0-0.8) Baso # (Auto) 0.1 10^3/uL 10^3/ uL (0.0-0.1) Nucleated RBC % (a uto) 0 % % Nucleated RBCs # 0.0 /100WBC /100W BC D-Dimer Specimen Type Sample Site ABG pH ABG pCO2 ABG pO2 ABG HCO3 ABG Base Excess Italo Test Hematocrit Hgb O2 Saturation Carboxyhemoglobin Methemoglobin Total Hemoglobin O2 Delivery Device O2 Liters/Min Certified Orthotist/Pedorthist ID Sodium 136 mmol/L mmol/L (136-145) Potassium 4.4 mmol/L mmol/L (3.5-5.1) Chloride 102 mmol/L mmol/L (98-107) Carbon Dioxide 23 mmol/L mmol/L (22-29) Anion Gap 15.4 (5-19) BUN 16 mg/dL mg/dL (8-23) Creatinine 1.0 mg/dL mg/dL (0.7-1.2) GFR Calculation 75.2 mL/min L mL/ min (90-130) Glucose 88 mg/dL mg/dL (65-115) Calculated Osmolal ity 283 mOsm/kg L mOs m/kg (285-295) Lactic Acid Calcium 9.0 mg/dL mg/dL (8.5-10.5) Total Bilirubin 0.2 mg/dL mg/dL (0.15-1.2) AST 12 U/L U/L (0-40) ALT 8 U/L U/L (0-41) Alkaline Phosphata se 98 IU/L IU/L (40-130) Troponin T Baselin e 11 ng/L ng/L (0-15) Troponin T 120 Min [place] Delta Troponin T C-Reactive Protein 19.1 mg/L H mg/L (0.0-4.9) NT-Pro-B Natriuret Pep 161 pg/mL H pg/mL (0-125) Total Protein 6.8 g/dL g/dL (6.6-8.7) Albumin 4.2 g/dL g/dL (3.5-5.2) Globulin 2.6 g/dL g/dL (1.3-4.6) Procalcitonin 0.12 ng/mL ng/mL (0-0.5) SARS-CoV-2 Ag (Rap id) 05/09/21 05/09/21 05/09/21 19:48 20:39 20:58 WBC RBC Hgb Hct MCV MCH MCHC RDW Plt Count MPV Neut % (Auto) Lymph % (Auto) [place] % (Auto) Eos % (Auto) Baso % (Auto) Neut # (Auto) Lymph # (Auto) [place] # (Auto) Eos # (Auto) Baso # (Auto) Nucleated RBC % (a uto) Nucleated RBCs # D-Dimer 1.03 ug/mIFEU H u g/mIFEU (0-0.59) Specimen Type Arterial Sample Site Radial, right ABG pH 7.25 L (7.35-7.45) ABG pCO2 50.0 mmHg H mmHg (35-45) ABG pO2 60.8 mmHg L mmHg (80.0-100.0) ABG HCO3 21.9 mmol/L L mmo l/L (22-26) ABG Base Excess -5.8 mmol/L L mmo l/L (-2.0-2.0) Italo Test Pos Hematocrit 47.2 % % (42-52) Hgb O2 Saturation 88.1 % L % (95-100) Carboxyhemoglobin 1.2 %THgb %THgb (0.4-20.1) Methemoglobin 0.9 % % (0.4-1.5) Total Hemoglobin 15.4 g/dL g/dL (14-18) O2 Delivery Device Nc O2 Liters/Min 2.5 % % Certified Orthotist/Pedorthist ID Jose Sodium Potassium Chloride Carbon Dioxide Anion Gap BUN Creatinine GFR Calculation Glucose Calculated Osmolal ity Lactic Acid Calcium Total Bilirubin AST ALT Alkaline Phosphata se Troponin T Baselin e Troponin T 120 Min [place] Delta Troponin T C-Reactive Protein NT-Pro-B Natriuret Pep Total Protein Albumin Globulin Procalcitonin SARS-CoV-2 Ag (Rap id) Negative (Negative) 05/09/21 05/09/21 20:58 20:58 WBC RBC Hgb Hct MCV MCH MCHC RDW Plt Count MPV Neut % (Auto) Lymph % (Auto) [place] % (Auto) Eos % (Auto) Baso % (Auto) Neut # (Auto) Lymph # (Auto) [place] # (Auto) Eos # (Auto) Baso # (Auto) Nucleated RBC % (a uto) Nucleated RBCs # D-Dimer Specimen Type Sample Site ABG pH ABG pCO2 ABG pO2 ABG HCO3 ABG Base Excess Italo Test Hematocrit Hgb O2 Saturation Carboxyhemoglobin Methemoglobin Total Hemoglobin O2 Delivery Device O2 Liters/Min Certified Orthotist/Pedorthist ID Sodium Potassium Chloride Carbon Dioxide Anion Gap BUN Creatinine GFR Calculation Glucose Calculated Osmolal ity Lactic Acid 0.6 mmol/L mmol/L (0.5-2.2) Calcium Total Bilirubin AST ALT Alkaline Phosphata se Troponin T Baselin e Troponin T 120 Min [place] 10.47 ng/L ng/L (0-15) Delta Troponin T -0.53 ABS# L ABS# (0-10) C-Reactive Protein NT-Pro-B Natriuret Pep Total Protein Albumin Globulin Procalcitonin SARS-CoV-2 Ag (Rap id) Discharge Plan Discharge Patient Disposition: Admitted As Inpatient Admit Provider: Margie Simmons Clinical Impression: Acute respiratory failure with hypoxia and hypercapnia COPD (chronic obstructive pulmonary disease) Qualifiers: COPD type: unspecified COPD Qualified Code(s): J44.9 - Chronic obstructive pulmonary disease, unspecified Condition: Stable Coding Level of Care Code ED Welt Rougher for [facility] Fwd Exam Detailed
[2021-05-09 19:06] LABS: Basophils # 0.1 10^3/uL (0.0-0.1); Basophils % 1.4 %; Eosinophils # 0.1 10^3/uL (0.0-0.8); Eosinophils % 1.6 %; Hematocrit 47.8 % (42.0-52.0); Hemoglobin 14.8 g/dL (11.7-16.6); Lymphocytes # 0.8 10^3/uL (0.8-4.8); Lymphocytes % 14.5 %; Mean Corpuscular Hemoglobin 28.6 pg (28.0-34.0); Mean Corpuscular Volume 92.3 fl (80-94); Mean Platelet Volume 9.7 fL (7.4-10.4); Monocytes # 0.8 10^3/uL (0.2-0.9); Monocytes % 13.4 %; Neutrophils # 3.99 10^3/uL (1.8-7.7); Neutrophils % 68.8 %; Nucleated Red Blood Cells % 0 %; Platelet Count 293 10^3/cmm (130-400); Red Blood Count 5.18 10^6/uL (4.1-5.3); Red Cell Distribution Width 13.1 % (12.1-15.1); White Blood Count 5.8 10^3/uL (4.0-10.0)
[2021-05-09 19:30] LABS: Troponin(5th) Baseline 11 ng/L (0-15)
[2021-05-09 19:38] LABS: NT Pro B Type Natriuretic Pept 161 pg/mL (0-125); Procalcitonin 0.12 ng/mL (0-0.5)
[2021-05-09] MEDS: ipratropium-albuterol 3 mL Neb INHALATION (19:44)
[2021-05-09 19:49] LABS: Alanine Aminotransferase 8 U/L (0-41); Albumin Level 4.2 g/dL (3.5-5.2); Alkaline Phosphatase 98 IU/L (40-130); Anion Gap 15.4 (5-19); Aspartate Amino Transferase 12 U/L (0-40); Blood Urea Nitrogen 16 mg/dL (8-23); C Reactive Protein 19.1 mg/L (0.0-4.9); Carbon Dioxide 23 mmol/L (22-29); Chloride 102 mmol/L (98-107); Globulin 2.6 g/dL (1.3-4.6); Glomerular Filtration Rate 75.2 mL/min (90-130); Glucose 88 mg/dL (65-115); Osmolality Calculated 283 mOsm/kg (285-295); Potassium 4.4 mmol/L (3.5-5.1); Sodium 136 mmol/L (136-145); Total Bilirubin 0.2 mg/dL (0.15-1.2); Total Protein 6.8 g/dL (6.6-8.7)
[2021-05-09 20:03] LABS: ABG PH Result 7.25 (7.35-7.45); Arterial Blood Gas Hematocrit 47.2 % (42-52); Base Excess ABG -5.8 mmol/L (-2.0-2.0); Blood Gas Allen Test Pos; Blood Gas LPM 2.5 %; Blood Gas Operator Identificat JB; Blood Gas Sample Site Radial, right; Blood Gas Sample Type Arterial; Carboxyhemoglobin 1.2 %THgb (0.4-20.1); HCO3 ABG 21.9 mmol/L (22-26); HGB O2 Sat 88.1 % (95-100); Methemoglobin 0.9 % (0.4-1.5); Oxygen Device NC; PO2 ABG 60.8 mmHg (80.0-100.0); Total Hemoglobin 15.4 g/dL (14-18)
--- NOTE | 2021-05-09 20:49 | ECG_ITS ---
[facility] Test Date: 2021-05-09 Pat Name: Naren Pritchard Department: Room: Gender: Male Consultant: : 1955 Requested By: Feliz Merritt Order Number: [id number] Aaron MD: Garth Glover M.D. Measurements Intervals [place] Rate: 99 P: 83 OK: 208 QRS: 89 QRSD: 89 T: 69 QT: 309 QTc: 396 Interpretive Statements SINUS RHYTHM Compared to ECG 01/12/2021 18:02:21 No significant changes Electronically Signed On 05-09-2021 21:34:37 CDT by Garth Glover M.D. [id number]
[2021-05-09 20:59] LABS: SARS Covid-2 Antigen Negative (Negative)
[2021-05-09 21:25] LABS: Lactic Sepsis W/Reflex 0.6 mmol/L (0.5-2.2)
[2021-05-09 21:36] LABS: Troponin 5 2HR 10.47 ng/L (0-15)
[2021-05-09 21:40] LABS: Troponin 5 2HR Delta -0.53 ABS# (0-10)
[2021-05-09 21:42] LABS: D Dimer 1.03 ug/mIFEU (0-0.59)
--- NOTE | 2021-05-09 23:17 | P.HP_ITS ---
Providers/Chief Complaint Admitting Physician: Margie Simmons MD Primary Care Provider: Ellie Irene MD Chief Complaint: SOB History of Present Illness Naren Pritchard is a 65 year old male gastric ulcers and cecal polyps with h/o COPD, HTN, with increased cough, dyspnea over the past 3-4 days. Denies fever. He has been using his 's oxygen at 2lpm at home. CXR today without any gross consolidation. EKG without acute ST-T wave changes, trop series with negative delta. Review of Systems General: Reports: 10 or more systems reviewed and unremarkable except in HPI and below Const: Denies: fever(s), chills or body aches Eyes: Denies: change in vision, blurry vision or photophobia ENMT: Reports: hoarseness; Denies: throat pain, enlarged tonsils, odynophagia or nasal congestion Card: Denies: chest pain, palpitations, irregular heart rhythm, edema, swelling of feet/ankles, lightheadedness, pre-syncope, dyspnea on exertion or orthopnea Resp: Reports: productive cough; Denies: dyspnea, non-productive cough, wheezing, stridor, pain on inspiration, c hange in phlegm color, hemoptysis or chest congestion GI: Denies: abdominal pain, nausea, vomiting, hematemesis, coffee ground emesis, dysphagia, heartburn, diarrhea, constipation, GI cramping, change in stool character, hematochezia or melena : Denies: flank pain, dysuria, urinary frequency, urinary urgency, urinary hesitancy or hematuria Musc: Denies: neck pain, back pain, extremity pain, joint swelling, joint warmth or deformity Neuro: Denies: headache(s), numbness in extremities, weakness in extremities, sensory changes, difficulty walking, frequent falls, dizziness, vertigo, behavioral changes, Slurred speech present or seizure-like activity Psych: Denies: anxiety, depression, suicidal ideation or homicidal ideation Endo: Denies: polyuria, polydipsia, tired all the time, cold intolerance or hot flashes Dio/Lymph: Denies: easy bruising or easy bleeding Medications/Allergies Home Medications Medication Instructions Recorded Confirmed Last Taken Type omeprazole 20 mg PO BID 08/13/19 04/14/21 Unknown History sumatriptan succinate 50 mg PO Q3D 08/13/19 04/14/21 Unknown History trazodone 100 mg PO BEDTIME 08/13/19 04/14/21 Unknown History Vitamin D3 25 mcg PO DAILY 11/27/19 04/14/21 Unknown History Voltaren 2 g TOPICAL QID PRN 11/27/19 04/14/21 Unknown History aspirin 81 mg PO DAILY 11/27/19 04/14/21 Unknown History diclofenac sodium 75 mg PO BID PRN #20 tab 01/12/21 04/14/21 Unknown Rx celecoxib [Celebrex] 100 mg PO BID #20 cap 03/13/21 04/14/21 Unknown Rx tramadol 50 mg PO TID PRN #14 tab 03/13/21 04/14/21 Unknown Rx albuterol sulfate 90 mcg/actuation See Rx Instructions .ROUTE 03/30/21 04/14/21 Unknown Rx aerosol inhaler .COMPLEX #8.5 g azelastine 205.5 mcg (0.15 %) 1 spray INTRANASAL BID 30 Days #30 03/30/21 04/14/21 Unknown Rx nasal spray ml benzonatate 100 mg capsule 100 mg PO BID PRN #20 cap 03/30/21 04/14/21 Unknown Rx budesonide-formoterol HFA 160 2 puff INHALATION BID #10.2 g 03/30/21 04/14/21 Unknown Rx mcg-4.5 mcg/actuation aerosol inhaler fluticasone propionate 50 2 spray INTRANASAL DAILY #16 g 03/30/21 04/14/21 Unknown Rx mcg/actuation nasal spray,suspension ipratropium 20 mcg-albuterol 100 1 puff INHALATION Q6H #4 g 03/30/21 04/14/21 Unknown Rx mcg/actuation mist for inhalation tiotropium bromide 2.5 2 puff INHALATION DAILY #4 g 03/30/21 04/14/21 Unknown Rx mcg/actuation mist for inhalation Allergies Allergy/AdvReac Type Severity Reaction Status Date / Time No Known Allergies Allergy Verified 04/14/21 13:53 PFSH Acute PFSH: Medical History COPD (chronic obstructive pulmonary disease) Depression GERD (gastroesophageal reflux disease) Hepatitis C Treatment status unknown History of migraine headaches Hx of colonic polyps Sessile on colonoscopy 02/16 Hypertension Peptic ulcer disease Gastric ulcer on EGD 02/16 Vitamin D deficiency Surgical History History of colonoscopy with polypectomy 2018 Hx of appendectomy Status post excision of lipoma (~01/2019) Social History Smoking risk assessment/counseling performed?: Yes Alcohol intake: current Alcohol intake frequency: holidays/special occasions only Counseling given: No Lives independently: Yes Household members: spouse Housing: House Marital status: Current occupational status: retired History of recent travel: No Current gender identity: Male Vitals/I&O/Wt Last Vital Signs Temp 98.6 F 05/09/21 18:28 Pulse 101 H 05/09/21 22:49 Resp 19 H 05/09/21 22:49 BP 147/87 05/09/21 22:49 Pulse Ox 97 05/09/21 22:49 Weight last 48 hrs Weight 49.895 kg Physical Exam Narrative: EXAM NARRATIVE: General: No acute distress, AO x3 HEENT: PERRLA, pupils bilaterally equal and reactive, pallors not present Chest:wheezing to asucultation B/L CVS: S1-S2 regular, no murmurs, no tachycardia, no gallops, no rubs Abdomen: Soft, nontender, no organomegaly, bowel sounds present Neuro: No focal deficits, no facial deformity, AO x3, power 5/5 in all limbs Data : 05/09/21 18:47 05/09/21 18:47 Micro: Microbiology 05/09/21 19:25 Blood Culture - Preliminary Blood SPECIMEN COLLECTED 05/09/21 18:47 Blood Culture - Preliminary Blood SPECIMEN COLLECTED A&P Assessment and plan (1) COPD (chronic obstructive pulmonary disease): with acute exacerbation currently Duonebs inhalation q6h scheduled, budesonide 0.5mg BID inh methylprednisone 40mg iv q8h protonix 40mg po BID given recent h/o gastric ulcer. Acute on chronic hypoxic hypercapneic respiratory failure with chronic resp acidosis noted on ABG supplemental 02 to target 02 sat 90-92% Status: Chronic Qualifiers: COPD type: unspecified COPD Qualified Code(s): J44.9 - Chronic obstructive pulmonary disease, unspecified (2) Acute respiratory failure with hypoxia and hypercapnia: Status: Acute Additional A&P Information dvt ppx: lovenox Full code Attestations Medical Necessity Statement*: observation admission, anticipate less than 2 midnight for COPD exacerbation Coding Level of Care Code Acute Billing And Insurance Coordinator for [facility] Fwd Diagnoses COPD (chronic obstructive pulmonary disease) J44.9 COPD type: unspecified COPD Acute respiratory failure with hypoxia and hypercapnia J96.01; J96.02
[2021-05-10] VITALS (12 sets, daily range): BP systolic 116–161; BP diastolic 56–72; PULSE 83–105; RESP 17–22; TEMP 36.7–36.8; O2SAT 87–99
--- NOTE | 2021-05-10 00:49 | ECG_ITS ---
[facility] Test Date: 2021-05-09 Pat Name: Naren Pritchard Department: Room: 255 Gender: Male Control Clerk Subassembly: : 1955 Requested By: Feliz Merritt Order Number: [id number] Aaron MD: Garth Glover M.D. Measurements Intervals [place] Rate: 95 P: 81 NC: 200 QRS: 88 QRSD: 90 T: 72 QT: 326 QTc: 411 Interpretive Statements SINUS RHYTHM Compared to ECG 05/09/2021 18:36:04 No significant changes Electronically Signed On 05-10-2021 23:26:11 CDT by Garth Glover M.D. [id number]
[2021-05-10] MEDS: enoxaparin 30 mg/0.3 mL Syringe SUBCUT (00:58)
[2021-05-10 01:17] LABS: Troponin 5 6HR 9.19 ng/L (0-15); Troponin 5 6HR Delta -1.81 ng/L (0-12)
[2021-05-10] MEDS: ipratropium-albuterol 3 mL Neb INHALATION ×3 (02:12→14:55)
[2021-05-10 02:20] LABS: ABG PCO2 52.3 mmHg (35-45); ABG PH Result 7.26 (7.35-7.45); Arterial Blood Gas Hematocrit 46.5 % (42-52); Base Excess ABG -4.2 mmol/L (-2.0-2.0); Blood Gas Allen Test Pos; Blood Gas Sample Site Radial, right; Blood Gas Sample Type Arterial; HCO3 ABG 23.6 mmol/L (22-26); Oxygen Device NC
[2021-05-10] MEDS: aspirin 81 mg EC Tablet PO (09:26)
[2021-05-10] MEDS: pantoprazole DR 40 mg Tablet PO ×2 (09:26→17:12)
[2021-05-10] MEDS: budesonide 0.5 mg/2 mL Neb INHALATION (10:02)
--- NOTE | 2021-05-10 10:55 | CTR_ITS ---
PROCEDURE INFORMATION: Exam: CTA Chest With Contrast Exam date and time: 05/10/2021 10:55 AM Age: 65 years old Clinical indication: Hyperventilation; Additional info: Hypoxia TECHNIQUE: Imaging protocol: Computed tomographic angiography of the chest with contrast. 3D rendering (Not supervised by radiologist): MIP and/or 3D reconstructed images were created by the technologist. Total images: 803 Radiation optimization: All CT scans at this facility use at least one of these dose optimization techniques: automated exposure control; mA and/or kV adjustment per patient size (includes targeted exams where dose is matched to clinical indication); or iterative reconstruction. Contrast material: OMNIPAQUE 350; Contrast volume: 63 ml; Contrast route: INTRA-ARTICULAR (ARTHROGRAM); COMPARISON: CT chest [facility] [id number] 11/26/2019 4:29 PM RADIATION DOSE METRICS: Total DLP (mGy-cm): 389.01 FINDINGS: Pulmonary arteries: Pulmonary artery evaluation of good technical quality with no pulmonary artery embolism identified. Aorta: Unremarkable. No aortic aneurysm. No aortic dissection. Lungs: Mild centrilobular emphysematous changes are present. Spiculated interstitial thickening with adjacent traction bronchiolectasis in the right upper lobe unchanged from prior exam and felt to represent a small area of scarring. Calcified granuloma anteriorly in the right upper lobe. Pleural spaces: Unremarkable. No pneumothorax. No pleural effusion. Heart: Unremarkable. No cardiomegaly. No pericardial effusion. Lymph nodes: Unremarkable. No enlarged lymph nodes. Gallbladder and bile ducts: Cholelithiasis is present without cholecystitis. No gallbladder wall thickening or pericholecystic fluid collection. Bones/joints: Unremarkable. No acute fracture. Soft tissues: Unremarkable. CT/CT angio chest PE protcl [id number] IMPRESSION: 1. No pulmonary artery embolism identified. 2. Mild centrilobular emphysematous changes are present. 3. Spiculated interstitial thickening with adjacent traction bronchiolectasis in the right upper lobe unchanged from prior exam and felt to represent a small area of scarring. 4. Cholelithiasis is present without cholecystitis. No gallbladder wall thickening or pericholecystic fluid collection. 5. No acute process identified. ASSESSMENT: Lung-RADS 2. Benign Appearance or Behavior - Nodules with a very low likelihood of becoming a clinically active cancer due to size or lack of growth. Management recommendation: Continue annual screening with low-dose chest CT in 12 months. Radiation Dose CTDIVOL = (mGy): DLP = 389.01 (mGy-cm)
[2021-05-10] MEDS: iohexol 350 mg/mL 100 mL Btl IV (11:30)
--- NOTE | 2021-05-10 11:42 | P.DS_ITS ---
Discharge Providers Date of Admission: 05/09/21 22:39 Date of Discharge: May 10, 2021 Attending Provider at Admission: Margie Simmons MD Attending Provider at Discharge: Janessa Pham MD Primary Care Provider: Ellie Irene MD Diagnoses at Discharge Discharge Diagnosis (1) COPD (chronic obstructive pulmonary disease): Status: Chronic Qualifiers: COPD type: unspecified COPD Qualified Code(s): J44.9 - Chronic obstructive pulmonary disease, unspecified (2) Acute respiratory failure with hypoxia and hypercapnia: Status: Acute Reason for Visit Reason for Visit: SOB Hospital Course Hospital Course 65-year male who carries history of nonoxygen dependent COPD presented to the hospital with chief complaint of worsening shortness of breath. Patient is stating that his symptoms started few days ago with sinus congestion, he has not noticed any fever, nausea, vomiting or chest pain. He has been noticing weight loss. Active smoker. Does use Combivent, Spiriva, Symbicort. His inhaler regimen work did not help to relieve his symptoms. 24 hours before his arrival to the ER he was experiencing shortness of breath which woke him up from his sleep. He started using 2 L of oxygen of his . He was saturating 97% on 3 L at home for further evaluation and came to the ER. In the ER he was diagnosed with COPD exacerbation and was put on IV steroids, secondary to high D-dimer I requested CTA chest next day which was unremarkable other than chronic changes. Procalcitonin 0.1, he was afebrile, white count 5.8. He will be discharged home with Medrol pack and 7-day course of Levaquin. He was saturating well on 2 L nasal cannula and home O2 evaluation, did qualify for 2 L at the time of discharge. outpatient pharmacy manager updated. Physical Exam Narrative: EXAM NARRATIVE: Cachectic malnourished male Who appears more than stated age Bilateral decreased breath sounds with wheezing S1, S2 Abdomen soft Lower symmetry no edema Awake alert nonfocal neuro exam Discharge Data Data Completed and Pending: Completed Studies During Hospitalization Category Date Time Status XR chest 1V soco ble [id number] Urgent Exams 05/09/21 18:47 Completed Pending at discharge Category Date Time Status CT angio chest PE protcl [id number] Stat Cat Scan 05/10/21 10:55 Taken Blood Culture Sta t Lab 05/09/21 19:25 Results [facility] SARS-CoV-2 RNA Stat Lab 05/09/21 20:42 Received Labs from last 24 hours 05/10/21 05/10/21 05/09/21 04:00 00:40 20:58 WBC RBC Hgb Hct MCV MCH MCHC RDW Plt Count MPV Neut % (Auto) Lymph % (Auto) [place]ander % (Auto) Eos % (Auto) Baso % (Auto) Neut # (Auto) Lymph # (Auto) [place] # (Auto) Eos # (Auto) Baso # (Auto) Nucleated RBC % (a uto) Nucleated RBCs # D-Dimer Specimen Type Arterial Sample Site Radial, right ABG pH 7.26 L ABG pCO2 52.3 H ABG pO2 76.0 L ABG HCO3 23.6 ABG Base Excess -4.2 L Italo Test Pos Hematocrit 46.5 Hgb O2 Saturation Carboxyhemoglobin Methemoglobin Total Hemoglobin O2 Delivery Device Nc O2 Liters/Min 2.0 Toxicologist ID ellpe Sodium Potassium Chloride Carbon Dioxide Anion Gap BUN Creatinine GFR Calculation Glucose Calculated Osmolal ity Lactic Acid Calcium Total Bilirubin AST ALT Alkaline Phosphata se Troponin T Baselin e Troponin T 120 Min [place] Delta Troponin T Troponin T Hi Sens 6Hr 9.19 Troponin T Hi Sens 6Hr Delta -1.81 L C-Reactive Protein NT-Pro-B Natriuret Pep Total Protein Albumin Globulin Procalcitonin 0.10 SARS-CoV-2 RNA (RT -PCR) SARS-CoV-2 Ag (Rap id) 05/09/21 05/09/21 05/09/21 20:58 20:58 20:58 WBC RBC Hgb Hct MCV MCH MCHC RDW Plt Count MPV Neut % (Auto) Lymph % (Auto) [place]ander % (Auto) Eos % (Auto) Baso % (Auto) Neut # (Auto) Lymph # (Auto) [place] # (Auto) Eos # (Auto) Baso # (Auto) Nucleated RBC % (a uto) Nucleated RBCs # D-Dimer 1.03 H Specimen Type Sample Site ABG pH ABG pCO2 ABG pO2 ABG HCO3 ABG Base Excess Italo Test Hematocrit Hgb O2 Saturation Carboxyhemoglobin Methemoglobin Total Hemoglobin O2 Delivery Device O2 Liters/Min Toxicologist ID Sodium Potassium Chloride Carbon Dioxide Anion Gap BUN Creatinine GFR Calculation Glucose Calculated Osmolal ity Lactic Acid 0.6 Calcium Total Bilirubin AST ALT Alkaline Phosphata se Troponin T Baselin e Troponin T 120 Min [place] 10.47 Delta Troponin T -0.53 L Troponin T Hi Sens 6Hr Troponin T Hi Sens 6Hr Delta C-Reactive Protein NT-Pro-B Natriuret Pep Total Protein Albumin Globulin Procalcitonin SARS-CoV-2 RNA (RT -PCR) SARS-CoV-2 Ag (Rap id) 05/09/21 05/09/21 05/09/21 20:42 20:39 19:48 WBC RBC Hgb Hct MCV MCH MCHC RDW Plt Count MPV Neut % (Auto) Lymph % (Auto) [place]ander % (Auto) Eos % (Auto) Baso % (Auto) Neut # (Auto) Lymph # (Auto) [place]ander # (Auto) Eos # (Auto) Baso # (Auto) Nucleated RBC % (a uto) Nucleated RBCs # D-Dimer Specimen Type Arterial Sample Site Radial, right ABG pH 7.25 L ABG pCO2 50.0 H ABG pO2 60.8 L ABG HCO3 21.9 L ABG Base Excess -5.8 L Italo Test Pos Hematocrit 47.2 Hgb O2 Saturation 88.1 L Carboxyhemoglobin 1.2 Methemoglobin 0.9 Total Hemoglobin 15.4 O2 Delivery Device Nc O2 Liters/Min 2.5 Toxicologist ID Jose Sodium Potassium Chloride Carbon Dioxide Anion Gap BUN Creatinine GFR Calculation Glucose Calculated Osmolal ity Lactic Acid Calcium Total Bilirubin AST ALT Alkaline Phosphata se Troponin T Baselin e Troponin T 120 Min [place] Delta Troponin T Troponin T Hi Sens 6Hr Troponin T Hi Sens 6Hr Delta C-Reactive Protein NT-Pro-B Natriuret Pep Total Protein Albumin Globulin Procalcitonin SARS-CoV-2 RNA (RT -PCR) Pending SARS-CoV-2 Ag (Rap id) Negative 05/09/21 05/09/21 05/09/21 18:47 18:47 18:47 WBC 5.8 RBC 5.18 Hgb 14.8 Hct 47.8 MCV 92.3 MCH 28.6 MCHC 31.0 RDW 13.1 Plt Count 293 MPV 9.7 Neut % (Auto) 68.8 Lymph % (Auto) 14.5 Lander % (Auto) 13.4 Eos % (Auto) 1.6 Baso % (Auto) 1.4 Neut # (Auto) 3.99 Lymph # (Auto) 0.8 Lander # (Auto) 0.8 Eos # (Auto) 0.1 Baso # (Auto) 0.1 Nucleated RBC % (a uto) 0 Nucleated RBCs # 0.0 D-Dimer Specimen Type Sample Site ABG pH ABG pCO2 ABG pO2 ABG HCO3 ABG Base Excess Italo Test Hematocrit Hgb O2 Saturation Carboxyhemoglobin Methemoglobin Total Hemoglobin O2 Delivery Device O2 Liters/Min Toxicologist ID Sodium 136 Potassium 4.4 Chloride 102 Carbon Dioxide 23 Anion Gap 15.4 BUN 16 Creatinine 1.0 GFR Calculation 75.2 L Glucose 88 Calculated Osmolal ity 283 L Lactic Acid Calcium 9.0 Total Bilirubin 0.2 AST 12 ALT 8 Alkaline Phosphata se 98 Troponin T Baselin e 11 Troponin T 120 Min [place] Delta Troponin T Troponin T Hi Sens 6Hr Troponin T Hi Sens 6Hr Delta C-Reactive Protein 19.1 H NT-Pro-B Natriuret Pep 161 H Total Protein 6.8 Albumin 4.2 Globulin 2.6 Procalcitonin 0.12 SARS-CoV-2 RNA (RT -PCR) SARS-CoV-2 Ag (Rap id) Vitals: Last Vital Signs Temp 98.0 F 05/10/21 11:40 Pulse 99 05/10/21 11:40 Resp 18 05/10/21 11:40 BP 132/71 05/10/21 11:40 Pulse Ox 96 05/10/21 11:40 Discharge Plan Discharge Patient Disposition: Home Condition: Stable Prescriptions: New Medrol (Gunnar) 4 mg tablets,dose pack See Rx Instructions .ROUTE .COMPLEX Qty: 21 RF: 0 levofloxacin 750 mg tablet 750 mg PO DAILY 7 Days Qty: 7 RF: 0 Continued Tessalon Perles 100 mg capsule 100 mg PO BID PRN (Reason: cough) Qty: 20 RF: 3 azelastine 205.5 mcg (0.15 %) spray,non-aerosol 1 spray INTRANASAL BID 30 Days Qty: 30 RF: 4 aspirin 81 mg Tablet,Delayed Release (Dr/Ec) 81 mg PO DAILY RF: 0 Vitamin D3 25 mcg (1,000 unit) Capsule 25 mcg PO DAILY RF: 0 Voltaren 1 % Gel 2 g TOPICAL QID PRN (Reason: NECK PAIN) RF: 0 sumatriptan succinate 50 mg Tablet 50 mg PO Q3D RF: 0 trazodone 100 mg Tablet 100 mg PO BEDTIME RF: 0 omeprazole 20 mg Capsule,Delayed Release(Dr/Ec) 20 mg PO BID RF: 0 diclofenac sodium 75 mg tablet,delayed release (DR/EC) 75 mg PO BID PRN (Reason: pain) Qty: 20 RF: 0 tramadol 50 mg tablet 50 mg PO TID PRN (Reason: pain) Qty: 14 RF: 0 Celebrex 100 mg capsule 100 mg PO BID Qty: 20 RF: 0 ProAir HFA 90 mcg/actuation HFA aerosol inhaler See Rx Instructions .ROUTE .COMPLEX 30 Days Qty: 8.5 RF: 3 Flonase Allergy Relief 50 mcg/actuation spray,suspension 2 spray intranasal DAILY 30 Days Qty: 16 RF: 3 Symbicort 160-4.5 mcg/actuation HFA aerosol inhaler 2 puff INHALATION BID 30 Days Qty: 10.2 RF: 3 Spiriva Respimat 2.5 mcg/actuation mist 2 puff inhalation DAILY 30 Days Qty: 4 RF: 3 Combivent Respimat 20-100 mcg/actuation mist 1 puff inhalation Q6H 30 Days Qty: 4 RF: 3 Discharge Orders: Discharge Order (Routine); Ordered 05/10/21 Ordered By: Janessa Pham Other Ambulatory Orders: DME: Oxygen (Order) Location: None Selected Ordered By: Janessa Pham Referrals: Ellie Irene MD [Primary Care Provider] - 4-7 days Bola Walker MD [Physician] - 1-3 days Discharge Diet: Cardiac Discharge Activity: Increase activity as tolerated Patient Instructions: Opioid Safety Discharge Attestations Time Spent in Discharge Care*: less than 30 min Quality Metrics Clinical Quality Measures During this hospital stay, did patient experience: None Coding Level of Care Code Acute [facility] note Diagnoses COPD (chronic obstructive pulmonary disease) J44.9 COPD type: unspecified COPD Acute respiratory failure with hypoxia and hypercapnia J96.01; J96.02
[2021-05-11 13:53] LABS: Quest SARS-CoV-2 RNA NOT DETECTED (NOT DETECTED)
--- NOTE | 2021-05-11 18:20 | PC.RESP ---
PULMONARY REHAB INFORMATION SENT TO PATIENT.
--- NOTE | 2021-05-13 13:44 | PC.SOCIAL ---
discharge follow up call made, spoke with patient. patient reports he is feeling ok patient wishes to have levofloxacin and medrol dose pack called into [facility] and cancelled at the [place]. Moving Van Driver did both of those. patient is aware of follow up appointment dates and times. patient is using o2 at 2L and tolerating well, spo2 95-96%/. patient denies questions or concerns.
== END 2021-05-10 18:35 | disposition home or self-care (01) ==
LOC: ER 19:29 → MEDSURG 22:48
PROVIDERS: Admitting Provider Student in an Organized Health Care Education/Training Program; Emergency Provider Emergency Medicine; PCP Family Medicine; Visit Provider Internal Medicine
DX: J44.9 Chronic obstructive pulmonary disease, unspecified (principal); J96.01 Acute respiratory failure with hypoxia; J96.02 Acute respiratory failure with hypercapnia; F17.210 Nicotine dependence, cigarettes, uncomplicated; Z99.81 Dependence on supplemental oxygen; I10 Essential (primary) hypertension; F32.9 Major depressive disorder, single episode, unspecified; K21.9 Gastro-esophageal reflux disease without esophagitis; Z86.19 Personal history of other infectious and parasitic diseases; Z87.11 Personal history of peptic ulcer disease
CPT/HCPCS: 36600; 71045; 71275; 80053; 82803; 82805; 83605; 83880; 84145; 84484; 85025; 85378; 86140; 87040; 87426; 87635; 93005; 94640; 96372; 96374; 96376; 99285; G0378; J1650; J2920; J2930; J7626; Q9967

== ENCOUNTER → 2021-05-12 13:25 | Outpatient (BNVA) | payer MEDICAID, SELFPAY | PROVIDERS: PCP Family Medicine; Visit Provider Surgery | DX: Z20.822 Contact with and (suspected) exposure to COVID-19 (principal); Z01.812 Encounter for preprocedural laboratory examination | CPT/HCPCS: 87635 ==

== ENCOUNTER → 2021-08-28 09:47 | Outpatient (BNVA) | payer OTHER, SELFPAY | PROVIDERS: PCP Family Medicine; Visit Provider Nurse Practitioner Family | DX: Z20.822 Contact with and (suspected) exposure to COVID-19 (principal) | CPT/HCPCS: 87635 ==

== ENCOUNTER → 2021-11-18 13:20 | Outpatient (BNVA) | payer OTHER, SELFPAY | PROVIDERS: PCP Family Medicine; Visit Provider Internal Medicine Critical Care Medicine | DX: J44.9 Chronic obstructive pulmonary disease, unspecified (principal); J30.9 Allergic rhinitis, unspecified; F17.218 Nicotine dependence, cigarettes, with other nicotine-induced disorders; K21.9 Gastro-esophageal reflux disease without esophagitis; I10 Essential (primary) hypertension | CPT/HCPCS: 99214 ==

== ENCOUNTER → 2021-11-24 10:08 | Outpatient (BNVA) | payer OTHER, SELFPAY | PROVIDERS: PCP Family Medicine; Visit Provider Surgery | DX: Z86.010 Personal history of colon polyps (principal); F17.210 Nicotine dependence, cigarettes, uncomplicated | CPT/HCPCS: 99213 ==

== ENCOUNTER 2022-02-24 08:23 | Day surgery (SDC) | payer OTHER, SELFPAY ==
[2021-12-25 13:02] VITALS: BMI 19.8
[2022-02-22 10:35] VITALS: BMI 18.8
[2022-02-24 08:41] VITALS: BP 103/63; PULSE 81; RESP 18; TEMP 36.5; O2SAT 97
[2022-02-24] MEDS: sodium chloride 0.9% 1,000 ML 30 ML IV (08:58)
--- NOTE | 2022-02-24 08:58 | ANES.PREANE2 ---
Pre-Anesthetic Assessment Height/Weight: Height 1.63 m Weight 49.895 kg Temp Pulse Resp BP Pulse Ox O2 Del Method 97.7 F 81 18 103/63 97 02/24/22 08:41 02/24/22 08:41 02/24/22 08:41 02/24/22 08:41 02/24/22 08:41 02/24/22 08:41 Preop Diagnosis: diagnostic Operation Date: 02/24/22 10:00 Proposed Procedures p Colonoscopy 08493/z86.010(Not Applicable) - Pravin Landa MD Familial anesthetic complications: none Was Beta Effie taken within 24 hours: N/A Was Clonidine taken within 24 hours: N/A Last intake: Intake Last Liquid Date 02/23/22 Last Liquid Time 16:00 Last Solid Date 02/22/22 Last Solid Time 17:00 Social Tobacco and No alcohol Exam alert, oriented x 3 and regular rate & rhythm b/l wheezing Airway Submandibular: within normal limits Cervical ROM: within normal limits Mallampati: Class II Comments: Comments: missing teeth Pulmonary Asthma, Chronic Obstructive Pulmonary Disease (NC O2 at night ) and Exertional Dyspnea CV/HEM Coronary Artery Disease, Hypertension and Myocardial Infarction METS < 4 CP with exertion Able to walk around grocery store slowly w/o CP Hepatic Hepatitis (C) GI Gastroesophageal Reflux Disease and Peptic Ulcer Disease Metabolic None reported Neuropsych Headache Anesthetic Plan ASA status: 3 (66 year old male with hx of nocturnal O2, COPD, NV, CP on exertion, GERD, hepatits C. ) Anesthesia: Anesthesia Evaluation and General Other: I discussed with the patient risks, goals, and benefits of MAC and general anesthesia. We discussed spectrum of MAC anesthesia including conversion to general as well as possibility of recall of intraoperative stimuli including discomfort/pain. Patient agrees to proceed with MAC. Risk of > 500 ml blood loss (7ml/kg in children): No Medications/Allergies Home Medications Medication Instructions Recorded Confirmed Last Taken Type omeprazole 20 mg capsule,delayed 20 mg PO BID 08/13/19 02/22/22 02/23/22 History release sumatriptan succinate 50 mg tablet 50 mg PO Q3D PRN headaches 08/13/19 02/22/22 02/23/22 History trazodone 100 mg tablet 200 mg PO BEDTIME 08/13/19 02/22/22 02/23/22 History aspirin 81 mg tablet,delayed 81 mg PO DAILY 11/27/19 02/22/22 02/23/22 History release cholecalciferol (vitamin D3) 25 25 mcg PO DAILY 11/27/19 02/22/22 02/23/22 History mcg (1,000 unit) capsule (Vitamin D3) diclofenac sodium 1 % topical gel 2 g topical QID PRN NECK PAIN 11/27/19 02/22/22 02/23/22 History (Voltaren) diclofenac sodium 75 mg 75 mg PO BID PRN pain #20 tabs 01/12/21 12/25/21 02/23/22 Rx tablet,delayed release azelastine 205.5 mcg (0.15 %) 1 spray intranasal BID 30 days #30 03/30/21 02/22/22 02/23/22 Rx nasal spray mL budesonide-formoterol HFA 160 2 puff inhalation BID 30 days 05/10/21 02/22/22 02/23/22 Rx mcg-4.5 mcg/actuation aerosol #10.2 grams inhaler (Symbicort) fluticasone propionate 50 2 spray intranasal DAILY 30 days 05/10/21 02/22/22 02/23/22 Rx mcg/actuation nasal #16 grams spray,suspension (Flonase Allergy Relief) ipratropium 20 mcg-albuterol 100 1 puff inhalation Q6H 30 days #4 05/10/21 02/22/22 02/24/22 Rx mcg/actuation mist for inhalation grams (Combivent Respimat) tiotropium bromide 2.5 1 puff inhalation DAILY 05/11/21 02/22/22 02/24/22 History mcg/actuation mist for inhalation (Spiriva Respimat) albuterol sulfate 90 mcg/actuation 2 inh inhalation Q4H PRN Shortness 12/25/21 02/22/22 02/23/22 History aerosol inhaler (ProAir HFA) Of Breath guaifenesin 400 mg tablet 400 mg PO DAILY 12/25/21 02/22/22 02/23/22 History omega-3 fatty acids 1,000 mg PO BID 12/25/21 02/22/22 02/23/22 History topiramate 50 mg tablet 200 mg PO DAILY 12/25/21 02/22/22 02/23/22 History Allergies Allergy/AdvReac Type Severity Reaction Status Date / Time No Known Allergies Allergy Verified 02/24/22 08:40 Current Medications Generic Name Dose Route Start Last Admin Trade Name Manpreetq PRN Reason Stop Dose Admin Sodium Chloride 1,000 mls @ 30 mls/hr 02/24/22 08:30 02/24/22 08:58 Sodium Chloride 0.9% IV 02/25/22 08:29 30 mls/hr .Q24H LANIE Administration PFSH Anesthesia Medical History COPD (chronic obstructive pulmonary disease) Depression GERD (gastroesophageal reflux disease) Hepatitis C Treatment status unknown History of migraine headaches Hx of colonic polyps Sessile on colonoscopy 02/16 Hypertension Peptic ulcer disease Gastric ulcer on EGD 02/16 Vitamin D deficiency Surgical History History of colonoscopy with polypectomy 2018 Hx of appendectomy Status post excision of lipoma (~01/2019) Social History Smoking and tobacco status: current every day smoker cigarettes Packs smoked per day: 1.5 Years cigarettes smoked: 44 [ Other cigarette details: started at age 22] Smoking risk assessment/counseling performed?: Yes Alcohol intake: current Alcohol intake frequency: holidays/special occasions only Counseling given: No Lives independently: Yes Household members: spouse Housing: House Marital status: Current occupational status: retired History of recent travel: No Current gender identity: Male Data Anesthesia Cardiac Studies: No Data to Display
--- NOTE | 2022-02-24 08:59 | P.HP_ITS ---
Same Day Surgery H&P Indication for Procedure/HPI DATE OF PROCEDURE: February 24, 2022 CHIEF COMPLAINT/INDICATIONFOR SURGICAL PROCEDURE: Colon polyp PREOP DIAGNOSIS: diagnostic PLANNED PROCEDURE: Operation Date: 02/24/22 10:00 Proposed Procedures p Colonoscopy 43618/z86.010(Not Applicable) - Pravin Landa MD Medications/Allergies* Home Medications Medication Instructions Recorded Confirmed Type omeprazole 20 mg capsule,delayed 20 mg PO BID 08/13/19 02/22/22 History release sumatriptan succinate 50 mg tablet 50 mg PO Q3D PRN headaches 08/13/19 02/22/22 History trazodone 100 mg tablet 200 mg PO BEDTIME 08/13/19 02/22/22 History aspirin 81 mg tablet,delayed 81 mg PO DAILY 11/27/19 02/22/22 History release cholecalciferol (vitamin D3) 25 25 mcg PO DAILY 11/27/19 02/22/22 History mcg (1,000 unit) capsule (Vitamin D3) diclofenac sodium 1 % topical gel 2 g topical QID PRN NECK PAIN 11/27/19 02/22/22 History (Voltaren) tiotropium bromide 2.5 1 puff inhalation DAILY 05/11/21 02/22/22 History mcg/actuation mist for inhalation (Spiriva Respimat) albuterol sulfate 90 mcg/actuation 2 inh inhalation Q4H PRN Shortness 12/25/21 02/22/22 History aerosol inhaler (ProAir HFA) Of Breath guaifenesin 400 mg tablet 400 mg PO DAILY 12/25/21 02/22/22 History omega-3 fatty acids 1,000 mg PO BID 12/25/21 02/22/22 History topiramate 50 mg tablet 200 mg PO DAILY 12/25/21 02/22/22 History Allergies/Adverse Reactions Allergy/AdvReac Type Severity Reaction Status Date / Time No Known Allergies Allergy Verified 02/24/22 08:40 Current Medications: Generic Name Dose Route Start Last Admin Trade Name Freq PRN Reason Stop Dose Admin Sodium Chloride 1,000 mls @ 30 mls/hr 02/24/22 08:30 02/24/22 08:58 Sodium Chloride 0.9% IV 02/25/22 08:29 30 mls/hr .Q24H LANIE Administration Pertinent History/Comorbid Conditions* Medical History (Updated 05/22/21 @ 09:30 by Bola Walker MD) COPD (chronic obstructive pulmonary disease) Depression GERD (gastroesophageal reflux disease) Hepatitis C Treatment status unknown History of migraine headaches Hx of colonic polyps Sessile on colonoscopy 02/16 Hypertension Peptic ulcer disease Gastric ulcer on EGD 02/16 Vitamin D deficiency Surgical History (Updated 01/20/21 @ 13:30 by Pravin Landa MD) History of colonoscopy with polypectomy 2018 Hx of appendectomy Status post excision of lipoma (~01/2019) Social History Smoking and tobacco status: current every day smoker cigarettes Packs smoked per day: 1.5 Years cigarettes smoked: 44 [ Other cigarette details: started at age 22] Smoking risk assessment/counseling performed?: Yes Alcohol intake: current Alcohol intake frequency: holidays/special occasions only Counseling given: No Lives independently: Yes Household members: spouse Housing: House Marital status: Current occupational status: retired History of recent travel: No Current gender identity: Male Pertinent Exam Findings alert, oriented x 3 and regular rate & rhythm Recommendations Surgery/Procedure today Coding Level of Care Code Acute Regulatory Affairs Coordinator for Oli Moise
[2022-02-24 09:24] VITALS: BP 114/64; PULSE 65; RESP 16; TEMP 36.5; O2SAT 98
[2022-02-24 09:39] VITALS: BP 129/86; PULSE 66; RESP 18; TEMP 36.4; O2SAT 100
--- NOTE | 2022-02-24 09:39 | ANES.PREANE2 ---
Pre-Anesthetic Assessment Height/Weight: Height 1.63 m Weight 49.895 kg Temp Pulse Resp BP Pulse Ox O2 Del Method O2 Flow Rate 97.7 F 65 16 114/64 98 3 02/24/22 09:24 02/24/22 09:24 02/24/22 09:24 02/24/22 09:24 02/24/22 09:24 02/24/22 09:24 02/24/22 09:24 Preop Diagnosis: diagnostic Operation Date: 02/24/22 10:00 Proposed Procedures p Colonoscopy [id number]/[id number](Not Applicable) - Pravin Landa MD Last intake: Intake Last Liquid Date 02/23/22 Last Liquid Time 16:00 Last Solid Date 02/22/22 Last Solid Time 17:00 Anesthetic Plan ASA status: 3 Medications/Allergies Home Medications Medication Instructions Recorded Confirmed Last Taken Type omeprazole 20 mg capsule,delayed 20 mg PO BID 08/13/19 02/22/22 02/23/22 History release sumatriptan succinate 50 mg tablet 50 mg PO Q3D PRN headaches 08/13/19 02/22/22 02/23/22 History trazodone 100 mg tablet 200 mg PO BEDTIME 08/13/19 02/22/22 02/23/22 History aspirin 81 mg tablet,delayed 81 mg PO DAILY 11/27/19 02/22/22 02/23/22 History release cholecalciferol (vitamin D3) 25 25 mcg PO DAILY 11/27/19 02/22/22 02/23/22 History mcg (1,000 unit) capsule (Vitamin D3) diclofenac sodium 1 % topical gel 2 g topical QID PRN NECK PAIN 11/27/19 02/22/22 02/23/22 History (Voltaren) diclofenac sodium 75 mg 75 mg PO BID PRN pain #20 tabs 01/12/21 12/25/21 02/23/22 Rx tablet,delayed release azelastine 205.5 mcg (0.15 %) 1 spray intranasal BID 30 days #30 03/30/21 02/22/22 02/23/22 Rx nasal spray mL budesonide-formoterol HFA 160 2 puff inhalation BID 30 days 05/10/21 02/22/22 02/23/22 Rx mcg-4.5 mcg/actuation aerosol #10.2 grams inhaler (Symbicort) fluticasone propionate 50 2 spray intranasal DAILY 30 days 05/10/21 02/22/22 02/23/22 Rx mcg/actuation nasal #16 grams spray,suspension (Flonase Allergy Relief) ipratropium 20 mcg-albuterol 100 1 puff inhalation Q6H 30 days #4 05/10/21 02/22/22 02/24/22 Rx mcg/actuation mist for inhalation grams (Combivent Respimat) tiotropium bromide 2.5 1 puff inhalation DAILY 05/11/21 02/22/22 02/24/22 History mcg/actuation mist for inhalation (Spiriva Respimat) albuterol sulfate 90 mcg/actuation 2 inh inhalation Q4H PRN Shortness 12/25/21 02/22/22 02/23/22 History aerosol inhaler (ProAir HFA) Of Breath guaifenesin 400 mg tablet 400 mg PO DAILY 12/25/21 02/22/22 02/23/22 History omega-3 fatty acids 1,000 mg PO BID 12/25/21 02/22/22 02/23/22 History topiramate 50 mg tablet 200 mg PO DAILY 12/25/21 02/22/22 02/23/22 History Allergies Allergy/AdvReac Type Severity Reaction Status Date / Time No Known Allergies Allergy Verified 02/24/22 08:40 Current Medications Generic Name Dose Route Start Last Admin Trade Name Freq PRN Reason Stop Dose Admin Sodium Chloride 1,000 mls @ 30 mls/hr 02/24/22 08:30 02/24/22 08:58 Sodium Chloride 0.9% IV 02/25/22 08:29 30 mls/hr .Q24H LANIE Administration PFSH Anesthesia Medical History COPD (chronic obstructive pulmonary disease) Depression GERD (gastroesophageal reflux disease) Hepatitis C Treatment status unknown History of migraine headaches Hx of colonic polyps Sessile on colonoscopy 02/16 Hypertension Peptic ulcer disease Gastric ulcer on EGD 02/16 Vitamin D deficiency Surgical History History of colonoscopy with polypectomy 2018 Hx of appendectomy Status post excision of lipoma (~01/2019) Social History Smoking and tobacco status: current every day smoker cigarettes Packs smoked per day: 1.5 Years cigarettes smoked: 44 [ Other cigarette details: started at age 22] Smoking risk assessment/counseling performed?: Yes Alcohol intake: current Alcohol intake frequency: holidays/special occasions only Counseling given: No Lives independently: Yes Household members: spouse Housing: House Marital status: Current occupational status: retired History of recent travel: No Current gender identity: Male Data Anesthesia Cardiac Studies: No Data to Display
--- NOTE | 2022-02-24 13:39 | ANE.PACU2 ---
Inpatient post-anesthesia follow up: Airway intact: Yes Vital signs: Temperature 97.6 F Pulse Rate 66 Respiratory Rate 18 Blood Pressure 129/86 Pulse Oximetry 100 Oxygen Delivery Me thod Nasal Cannula Oxygen Flow Rate 2 Fraction of Inspir ed Oxygen Hydration adequate: Yes Nausea and vomiting: No Pain level: 1 Mental status: Baseline Additional Comments: Patient on home O2
== END 2022-02-24 10:20 | disposition home or self-care (01) ==
PROVIDERS: PCP Family Medicine; Visit Provider Surgery
PROC: 0DJD8ZZ Inspection of Lower Intestinal Tract, Via Natural or Artificial Opening Endoscopic (ICD-10-PCS; CPT 45378; principal; 2022-02-24 10:00)
DX: Z86.010 Personal history of colon polyps (principal); K64.8 Other hemorrhoids; J44.9 Chronic obstructive pulmonary disease, unspecified; Z99.81 Dependence on supplemental oxygen; I25.10 Atherosclerotic heart disease of native coronary artery without angina pectoris; I10 Essential (primary) hypertension; I25.2 Old myocardial infarction; Z86.19 Personal history of other infectious and parasitic diseases
CPT/HCPCS: 45378; J2704; J7030

== ENCOUNTER 2022-05-26 23:52 | Emergency (ER) | payer OTHER, SELFPAY ==
[2022-05-27] VITALS (8 sets, daily range): BP systolic 101–141; BP diastolic 55–81; PULSE 67–95; RESP 16–30; TEMP 36.6; O2SAT 95–100; BMI 15.6
--- NOTE | 2022-05-27 00:01 | XRR_ITS ---
PROCEDURE INFORMATION: Exam: XR Chest Exam date and time: 05/27/2022 12:04 AM Age: 66 years old Clinical indication: Shortness of breath; Chest pressure; Patient HX: C/O chest pain with SOB. History of copd. ; Additional info: Cp TECHNIQUE: Imaging protocol: Radiologic exam of the chest. Views: 1 view. COMPARISON: CR XR chest 1V portable [id number] 05/09/2021 7:13 PM FINDINGS: Lungs: Hyperinflated lungs. Reticular interstitial changes. Negative for consolidation. Pleural spaces: Unremarkable. No pleural effusion. No pneumothorax. Heart/Mediastinum: Unremarkable. No cardiomegaly. Bones/joints: Unremarkable. XR/XR chest 1V portable [id number] IMPRESSION: Negative exam. No acute pathology.
--- NOTE | 2022-05-27 00:02 | ECG_ITS ---
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 Measurements Intervals [place] Rate: 89 P: 87 SC: 194 QRS: 89 QRSD: 84 T: 78 QT: 342 QTc: 417 Interpretive Statements SINUS RHYTHM Compared to ECG 05/09/2021 22:00:47 No significant changes Electronically Signed On 05-27-2022 7:08:32 CDT by Kwesi Shoemaker M.D. [id number] f
[2022-05-27 00:27] LABS: Basophils # 0.1 10^3/uL (0.0-0.1); Basophils % 1.1 %; Eosinophils # 0.4 10^3/uL (0.0-0.8); Eosinophils % 4.4 %; Hematocrit 44.3 % (42.0-52.0); Hemoglobin 13.8 g/dL (11.7-16.6); Lymphocytes # 2.4 10^3/uL (0.8-4.8); Lymphocytes % 28.9 %; Mean Corpuscular HGB Conc 31.2 g/dL (30.0-36.0); Mean Corpuscular Hemoglobin 29.4 pg (28.0-34.0); Mean Corpuscular Volume 94.3 fl (80-94); Mean Platelet Volume 9.8 fL (7.4-10.4); Monocytes # 0.8 10^3/uL (0.2-0.9); Neutrophils # 4.54 10^3/uL (1.8-7.7); Neutrophils % 55.1 %; Nucleated Red Blood Cells % 0 %; Platelet Count 367 10^3/cmm (130-400); White Blood Count 8.2 10^3/uL (4.0-10.0)
--- NOTE | 2022-05-27 00:39 | W.ED.SOB ---
HPI - SOB/Dyspnea General: Chief Complaint: Shortness of Breath/Dyspnea Stated Complaint: CP Time Seen by Provider: 05/26/22 23:55 Source: patient and EMS Mode of arrival: EMS Limitations: no limitations History of Present Illness: HPI Narrative: 66-year-old male has a history of COPD he states that over the last 3 to 4 days has had an increase productive cough along with right-sided chest pain. He states his pain is sharp in nature and worse when he coughs denies any pain currently. He denies any fever denies any increase shortness of breath he does wear oxygen at baseline he is not hypoxic here he states he has been out of his inhaler over the last week. Denies any vomiting or diarrhea. Associated symptoms: Reports chest pain; Deny abdominal pain, fever(s), nausea or vomiting Review of Systems Const: Denies: fever(s), chills, body aches or change in appetite Eyes: Denies: blurry vision or eye discomfort ENMT: Denies: throat pain or dental pain Card: Reports: chest pain Resp: Reports: dyspnea and non-productive cough GI: Denies: abdominal pain, nausea, vomiting or diarrhea : Denies: dysuria Musc: Denies: neck pain or back pain Skin/Breast: Denies: rash Neuro: Denies: headache(s) Psych: Denies: depression Dio/Lymph: Denies: easy bruising All/Imm: Denies: urticaria PFSH ED PFSH: Medical History COPD (chronic obstructive pulmonary disease) Depression GERD (gastroesophageal reflux disease) Hepatitis C Treatment status unknown History of migraine headaches Hx of colonic polyps Sessile on colonoscopy 02/16 Hypertension Peptic ulcer disease Gastric ulcer on EGD 02/16 Vitamin D deficiency Surgical History History of colonoscopy with polypectomy 2018 Hx of appendectomy Status post excision of lipoma (~01/2019) Social History Smoking and tobacco status: current every day smoker cigarettes Packs smoked per day: 1.5 Years cigarettes smoked: 44 [ Other cigarette details: started at age 22] Smoking risk assessment/counseling performed?: Yes Alcohol intake: current Alcohol intake frequency: holidays/special occasions only Counseling given: No Lives independently: Yes Household members: spouse Housing: House Marital status: Current occupational status: retired History of recent travel: No Current gender identity: Male Physical Exam Const: COMMON NORMALS: no acute distress and patient oriented x3 GENERAL APPEARANCE: frail appearing HENMT: COMMON NORMALS: normocephalic and atraumatic HEAD & SCALP: normocephalic and atraumatic Eye: COMMON NORMALS: Equal, round and reactive pupils present and EOMs intact bilaterally PUPIL: Yes Equal, round and reactive pupils present Neck/C-Spine: COMMON NORMALS: full ROM and supple Chest: COMMONS NORMALS: normal inspection of the chest and normal palpation of entire chest wall Resp: COMMON NORMALS: normal respiratory effort, No retractions, No use of accessory muscles and clear to auscultation bilaterally AUSCULTATION: clear to auscultation bilaterally Cardio: COMMON NORMALS: regular rate, regular rhythm and No murmurs present (Cardio) RATE: regular rate RHYTHM: regular rhythm GI: COMMON NORMALS: Normal to inspection, nondistended, normoactive bowel sounds present, Soft to palpation, non-tender and no masses PALPATION: Yes Soft to palpation Extremity: COMMON NORMALS: normal to inspection and full ROM Neuro: COMMON NORMALS: patient oriented x3, moves all extremities and no focal motor deficits Psych: COMMON NORMALS: mental status grossly normal, Normal thought process present and cooperative THOUGHT PROCESS: Normal thought process present Skin: COMMON NORMALS: no rashes or lesions noted and no wounds GENERAL SKIN EXAM: no rashes or lesions noted Course Vital Signs: Vital signs: Vital Signs Temperature 97.9 F 05/27/22 00:10 Pulse Rate 82 05/27/22 00:34 Respiratory Rate 18 05/27/22 00:34 Blood Pressure 138/81 05/27/22 00:10 Pulse Oximetry 99 05/27/22 00:34 Oxygen Delivery Me thod 05/27/22 00:34 Oxygen Flow Rate 4 05/27/22 00:34 MDM - SOB/Dyspnea Medical Decision Making Patient presents here with dyspnea likely COPD feels improved here after albuterol x-ray shows no signs of pneumonia has no signs of pulmonary embolism troponins are normal he is stable for discharge she is to follow-up with PCP and return if worsening. Lab Data : 05/27/22 00:15 05/27/22 00:15 Labs/Radiology: Radiology Impressions Chest X-Ray 05/27/22 00:01 IMPRESSION: Negative exam. No acute pathology. Laboratory Results WBC 8.2 10^3/uL (4.0-10.0) 05/27/22 00:15 RBC 4.70 10^6/uL (4.1-5.3) 05/27/22 00:15 Hgb 13.8 g/dL (11.7-16.6) 05/27/22 00:15 Hct 44.3 % (42.0-52.0) 05/27/22 00:15 MCV 94.3 fl (80-94) H 05/27/22 00:15 MCH 29.4 pg (28.0-34.0) 05/27/22 00:15 MCHC 31.2 g/dL (30.0-36.0) 05/27/22 00:15 RDW 13.0 % (12.1-15.1) 05/27/22 00:15 Plt Count 367 10^3/cmm (130-400) 05/27/22 00:15 MPV 9.8 fL (7.4-10.4) 05/27/22 00:15 Neut % (Auto) 55.1 % 05/27/22 00:15 Lymph % (Auto) 28.9 % 05/27/22 00:15 Schley % (Auto) 10.0 % 05/27/22 00:15 Eos % (Auto) 4.4 % 05/27/22 00:15 Baso % (Auto) 1.1 % 05/27/22 00:15 Neut # (Auto) 4.54 10^3/uL (1.8-7.7) 05/27/22 00:15 Lymph # (Auto) 2.4 10^3/uL (0.8-4.8) 05/27/22 00:15 Schley # (Auto) 0.8 10^3/uL (0.2-0.9) 05/27/22 00:15 Eos # (Auto) 0.4 10^3/uL (0.0-0.8) 05/27/22 00:15 Baso # (Auto) 0.1 10^3/uL (0.0-0.1) 05/27/22 00:15 Nucleated RBC % (auto) 0 % 05/27/22 00:15 Nucleated RBCs # 0.0 /100WBC 05/27/22 00:15 Sodium 145 mmol/L (136-145) 05/27/22 00:15 Potassium 4.6 mmol/L (3.5-5.1) 05/27/22 00:15 Chloride 107 mmol/L (98-107) 05/27/22 00:15 Carbon Dioxide 31 mmol/L (22-29) H 05/27/22 00:15 Anion Gap 11.6 (5-19) 05/27/22 00:15 BUN 8 mg/dL (8-23) 05/27/22 00:15 Creatinine 0.7 mg/dL (0.7-1.2) 05/27/22 00:15 GFR Calculation 113.2 mL/min (90-130) 05/27/22 00:15 Glucose 98 mg/dL (65-115) 05/27/22 00:15 Calculated Osmolality 298 mOsm/kg (285-295) H 05/27/22 00:15 Calcium 9.4 mg/dL (8.5-10.5) 05/27/22 00:15 Total Bilirubin 0.2 mg/dL (0.15-1.2) 05/27/22 00:15 AST 9 U/L (0-40) 05/27/22 00:15 ALT 8 U/L (0-41) 05/27/22 00:15 Alkaline Phosphatase 89 U/L (40-130) 05/27/22 00:15 Troponin T Baseline 12 ng/L (0-15) 05/27/22 00:15 Troponin T 120 Minute 10.64 ng/L (0-15) 05/27/22 02:40 Total Protein 6.0 g/dL (6.6-8.7) L 05/27/22 00:15 Albumin 3.6 g/dL (3.5-5.2) 05/27/22 00:15 Globulin 2.4 g/dL (1.3-4.6) 05/27/22 00:15 EKG Data EKG 1: I personally reviewed and interpreted this EKG as follows: EKG Interpretation Date: 05/27/22 EKG interpretation time: 00:02 Interpretation: nsr hr [address] or t wave abnormalities qrs 84 qtc 388 Discharge Plan Discharge Patient Disposition: Home Clinical Impression: Breath shortness, Chest pain Condition: Stable Prescriptions: No Action azelastine 205.5 mcg (0.15 %) spray,non-aerosol 1 spray INTRANASAL BID 30 Days Qty: 30 4RF Rx Instructions: administer into each nostril Dulera 200-5 mcg/actuation HFA aerosol inhaler 2 puff inhalation BID Qty: 13 6RF albuterol sulfate [Ventolin HFA] 90 mcg/actuation HFA aerosol inhaler 2 puff inhalation Q6H PRN (Reason: shortness of breath or wheezing) Qty: 8.5 6RF aspirin 81 mg Tablet,Delayed Release (Dr/Ec) 81 mg PO DAILY cholecalciferol (vitamin D3) [Vitamin D3] 25 mcg (1,000 unit) Capsule 25 mcg PO DAILY diclofenac sodium [Voltaren] 1 % Gel 2 g TOPICAL QID PRN (Reason: NECK PAIN) sumatriptan succinate 50 mg Tablet 50 mg PO Q3D PRN (Reason: headaches) Rx Instructions: PATIENT TO TAKE ONCE EVERY THREE DAYS trazodone 100 mg Tablet 200 mg PO BEDTIME omeprazole 20 mg Capsule,Delayed Release(Dr/Ec) 20 mg PO BID diclofenac sodium 75 mg tablet,delayed release (DR/EC) 75 mg PO BID PRN (Reason: pain) Qty: 20 0RF fluticasone propionate [Flonase Allergy Relief] 50 mcg/actuation spray,suspension 2 spray intranasal DAILY 30 Days Qty: 16 3RF Rx Instructions: administer into each nostril Combivent Respimat 20-100 mcg/actuation mist 1 puff inhalation Q6H 30 Days Qty: 4 3RF topiramate 50 mg Tablet 200 mg PO DAILY guaifenesin 400 mg Tablet 400 mg PO DAILY omega-3 fatty acids Capsule 1,000 mg PO BID Discharge Orders: Discharge ED (Routine); Ordered 05/27/22 Ordered By: Kai Venegas Referrals: Judith Lieberman FNP-C [Primary Care Provider] - 1-3 days Discharge Diet: Advance as tolerated Discharge Activity: Resume usual activity Patient Instructions: Chest Pain (ED), Dyspnea (ED) Coding Level of Care Code ED Box Toe Maker for Chg Fwd Exam Comprehensive
[2022-05-27 00:45] LABS: Troponin(5th) Baseline 12 ng/L (0-15)
[2022-05-27 00:46] LABS: Alanine Aminotransferase 8 U/L (0-41); Albumin Level 3.6 g/dL (3.5-5.2); Alkaline Phosphatase 89 U/L (40-130); Anion Gap 11.6 (5-19); Aspartate Amino Transferase 9 U/L (0-40); Blood Urea Nitrogen 8 mg/dL (8-23); Calcium 9.4 mg/dL (8.5-10.5); Carbon Dioxide 31 mmol/L (22-29); Chloride 107 mmol/L (98-107); Globulin 2.4 g/dL (1.3-4.6); Glomerular Filtration Rate 113.2 mL/min (90-130); Glucose 98 mg/dL (65-115); Osmolality Calculated 298 mOsm/kg (285-295); Potassium 4.6 mmol/L (3.5-5.1); Sodium 145 mmol/L (136-145); Total Bilirubin 0.2 mg/dL (0.15-1.2)
[2022-05-27] MEDS: dexamethasone 10 mg/mL INJ IVP (01:11)
--- NOTE | 2022-05-27 02:01 | ECG_ITS ---
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 Measurements Intervals [place] Rate: 80 P: 84 AR: 184 QRS: 90 QRSD: 85 T: 80 QT: 362 QTc: 418 Interpretive Statements SINUS RHYTHM Compared to ECG 05/27/2022 00:02:52 No significant changes Electronically Signed On 05-27-2022 7:15:36 CDT by Kwesi Shoemaker M.D. [email or web address].[email or web address]/store/OM/[id number]
[2022-05-27 03:12] LABS: Troponin 5 2HR 10.64 ng/L (0-15)
[2022-05-27 03:51] LABS: Troponin 5 2HR Delta -1.36 ABS# (0-10)
== END 2022-05-27 06:22 | disposition home or self-care (01) ==
PROVIDERS: Emergency Provider Emergency Medicine; PCP Nurse Practitioner
DX: R06.02 Shortness of breath (principal); R07.9 Chest pain, unspecified; Z79.82 Long term (current) use of aspirin; J44.9 Chronic obstructive pulmonary disease, unspecified; Z86.19 Personal history of other infectious and parasitic diseases; I10 Essential (primary) hypertension; F17.210 Nicotine dependence, cigarettes, uncomplicated
CPT/HCPCS: 71045; 80053; 84484; 85025; 93005; 94640; 96374; 99285; J1100; J3535

== ENCOUNTER 2022-07-07 12:25 | Emergency (ER) | payer OTHER, SELFPAY ==
[2022-07-07 13:47] VITALS: BP 96/62; PULSE 70; TEMP 36.3; O2SAT 98; BMI 15.9
[2022-07-07 14:45] LABS: Basophils # 0.1 10^3/uL (0.0-0.1); Eosinophils # 0.4 10^3/uL (0.0-0.8); Eosinophils % 4.5 %; Hemoglobin 13.8 g/dL (11.7-16.6); Lymphocytes # 2.2 10^3/uL (0.8-4.8); Lymphocytes % 28.4 %; Mean Corpuscular HGB Conc 30.7 g/dL (30.0-36.0); Mean Corpuscular Hemoglobin 29.4 pg (28.0-34.0); Mean Corpuscular Volume 95.9 fl (80-94); Monocytes # 0.5 10^3/uL (0.2-0.9); Neutrophils # 4.63 10^3/uL (1.8-7.7); Neutrophils % 59.6 %; Nucleated Red Blood Cells % 0 %; Platelet Count 339 10^3/cmm (130-400); Red Blood Count 4.69 10^6/uL (4.1-5.3); Red Cell Distribution Width 13.6 % (12.1-15.1); White Blood Count 7.8 10^3/uL (4.0-10.0)
[2022-07-07 14:57] LABS: Alanine Aminotransferase 6 U/L (0-41); Albumin Level 4.1 g/dL (3.5-5.2); Alkaline Phosphatase 88 U/L (40-130); Anion Gap 13.3 (5-19); Aspartate Amino Transferase 9 U/L (0-40); Blood Urea Nitrogen 7 mg/dL (8-23); Calcium 9.9 mg/dL (8.5-10.5); Carbon Dioxide 27 mmol/L (22-29); Chloride 109 mmol/L (98-107); Globulin 2.8 g/dL (1.3-4.6); Glucose 102 mg/dL (65-115); Osmolality Calculated 296 mOsm/kg (285-295); Potassium 5.3 mmol/L (3.5-5.1); Sodium 144 mmol/L (136-145); Total Bilirubin 0.2 mg/dL (0.15-1.2); Total Protein 6.9 g/dL (6.6-8.7)
[2022-07-07 15:52] VITALS: BP 105/64; PULSE 70; O2SAT 98
== END 2022-07-07 19:42 | disposition left against medical advice (07) ==
PROVIDERS: Emergency Provider Family Medicine; PCP Nurse Practitioner
DX: Z53.21 Procedure and treatment not carried out due to patient leaving prior to being seen by health care provider (principal)
CPT/HCPCS: 36415; 80053; 85025

== ENCOUNTER → 2022-08-23 10:02 | Outpatient (BNVA) | payer MEDICARE, SELFPAY | PROVIDERS: PCP Nurse Practitioner; Visit Provider Nurse Practitioner | DX: I10 Essential (primary) hypertension (principal); J44.9 Chronic obstructive pulmonary disease, unspecified | CPT/HCPCS: 80053 ==

== ENCOUNTER 2022-09-20 10:57 | Outpatient (CLI) | payer MEDICARE, MEDICAID, SELFPAY ==
--- NOTE | 2022-09-20 11:00 | MR_ITS ---
WS: [id number] MRI BRAIN WITHOUT CONTRAST HISTORY: G43.711 - Chronic migraine without aura, intractable, wit... COMPARISON: None available. TECHNIQUE: Diffusion imaging, multiplanar T1, T2 and FLAIR imaging obtained. Diffusion-weighted imaging is normal. Mild small vessel ischemic type changes throughout the white ma tter. No large territory infarct. Mild cerebral and cerebellar atrophy is diffuse. Ventricles and extra-axial spaces are normal. No inferior displacement of cerebellar tonsils. The sella turcica and pituitary gland are unremarkabl e. Dural venous sinuses and lower [place] demonstrate no abnormality on this unenhanced studies. Paranasal sinuses: Clear. Mastoid air cells: Normal. Calvarium and scalp: Intact. MR/MR head wo con* [id number] IMPRESSION: 1. No acute infarct. 2. Mild cerebral and cerebellar atrophy and mild small vessel ischemic disease . 3. No intracranial hemorrhage.
== END 2022-09-20 10:58 | disposition home or self-care (01) ==
LOC: RAD 11:00
PROVIDERS: PCP Nurse Practitioner; Visit Provider Nurse Practitioner
DX: G43.711 Chronic migraine without aura, intractable, with status migrainosus (principal); I67.82 Cerebral ischemia
CPT/HCPCS: 70551

== ENCOUNTER → 2022-10-11 14:25 | Outpatient (BNVA) | payer MEDICARE, MEDICAID, SELFPAY | PROVIDERS: PCP Nurse Practitioner; Visit Provider Nurse Practitioner | DX: K21.9 Gastro-esophageal reflux disease without esophagitis (principal); J44.9 Chronic obstructive pulmonary disease, unspecified | CPT/HCPCS: 71046; 80053; 85025 ==

== ENCOUNTER 2023-01-16 12:11 | Emergency (ER) | payer OTHER, SELFPAY ==
--- NOTE | 2023-01-16 12:20 | XRR_ITS ---
PROCEDURE INFORMATION: Exam: XR Chest Exam date and time: 01/16/2023 12:32 PM Age: 67 years old Clinical indication: Shortness of breath. TECHNIQUE: Imaging protocol: Radiologic exam of the chest. Views: 1 view. COMPARISON: CR XR chest 2V* [id number] 10/11/2022 2:25 PM FINDINGS: Lungs: The lungs are hyperinflated; query COPD, asthma or other obstructive lung disease. No pulmonary consolidation. Pleural spaces: No pleural effusion. No pneumothorax. Heart/Mediastinum: No gross evidence of pneumomediastinum. Bones/joints: No gross fracture. Soft tissues: Subtle nodular density in the mid left chest measuring 0.7 cm. XR/XR chest 1V portable [id number] IMPRESSION: 1. Subtle nodular density in the mid left chest. Recommend CT chest to better characterize. 2. Pulmonary hyperinflation; query COPD, asthma or other obstructive lung disease.
[2023-01-16 12:21] VITALS: BP 141/70; PULSE 112; RESP 18; TEMP 37.1; O2SAT 98
--- NOTE | 2023-01-16 12:25 | ECG_ITS ---
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 Measurements Intervals [place] Rate: 109 P: 82 CO: 188 QRS: 91 QRSD: 92 T: 70 QT: 316 QTc: 427 Interpretive Statements SINUS TACHYCARDIA POSSIBLE RIGHT ATRIAL ENLARGEMENT [0.25mV P-WAVE] POSSIBLE LEFT ATRIAL ENLARGEMENT [-0.1mV P-WAVE IN V1/V2] BORDERLINE RIGHT AXIS DEVIATION [QRS AXIS > 90] ABNORMAL RHYTHM ECG Compared to ECG 05/27/2022 02:34:01 Sinus rhythm no longer present Electronically Signed On 01-17-2023 7:55:20 CDT by Garth Glover M.D. [id number]
[2023-01-16 13:16] LABS: Basophils # 0.1 10^3/uL (0.0-0.1); Basophils % 0.8 %; Eosinophils % 0.3 %; Hematocrit 46.2 % (42.0-52.0); Hemoglobin 14.3 g/dL (11.7-16.6); Lymphocytes # 0.9 10^3/uL (0.8-4.8); Lymphocytes % 6.6 %; Mean Corpuscular Hemoglobin 29.5 pg (28.0-34.0); Mean Corpuscular Volume 95.5 fl (80-94); Mean Platelet Volume 9.7 fL (7.4-10.4); Monocytes # 1.1 10^3/uL (0.2-0.9); Monocytes % 8.4 %; Neutrophils % 83.3 %; Nucleated Red Blood Cells % 0 %; Platelet Count 272 10^3/cmm (130-400); Red Blood Count 4.84 10^6/uL (4.1-5.3); Red Cell Distribution Width 13.4 % (12.1-15.1); White Blood Count 13.3 10^3/uL (4.0-10.0)
[2023-01-16 13:30] VITALS: PULSE 111; RESP 20; O2SAT 98
--- NOTE | 2023-01-16 13:30 | W.ED.SOB ---
HPI - SOB/Dyspnea General: Chief Complaint: Shortness of Breath/Dyspnea Stated Complaint: SOB Time Seen by Provider: 01/16/23 12:15 History of Present Illness: HPI Narrative: 67-year-old male with history of COPD and asthma with emergency room via EMS because of difficulty breathing within the past few days. Upon present emergency room patient was found to be wheezing but awake and alert without any acute distress. Further reveals having some productive cough but denies coughing up blood or vomiting blood. No known sick contacts or foreign travel. She denies any chest pain, back pain, leg pain or leg swelling. Associated symptoms: Deny chest congestion or hemoptysis Review of Systems General: Reports: 10 or more systems reviewed and unremarkable except in HPI and below Resp: Reports: dyspnea, productive cough and wheezing; Denies: non-productive cough, pain on inspiration, change in phlegm color, hemoptysis or chest congestion Skin/Breast: Denies: rash, pruritus, skin tenderness, skin swelling, changing lesions, non-healing lesions or lesions PFS ED PFSH: Medical History COPD (chronic obstructive pulmonary disease) Depression GERD (gastroesophageal reflux disease) Hepatitis C Treatment status unknown History of migraine headaches Hx of colonic polyps Sessile on colonoscopy 02/16 Peptic ulcer disease Gastric ulcer on EGD 02/16 Vitamin D deficiency Surgical History History of colonoscopy with polypectomy 2018 Hx of appendectomy Status post excision of lipoma (~01/2019) Family History Father Tuberculosis Denies family history of Diabetes Cancer Social History Smoking and tobacco status: current every day smoker cigarettes Packs smoked per day: 1.5 Years cigarettes smoked: 44 [ Other cigarette details: started at age 22] Second hand smoke exposure: No Smoking risk assessment/counseling performed?: Yes Alcohol intake: current Alcohol intake frequency: holidays/special occasions only Desire information about alcohol rehabilitation?: No Counseling given: No Substance/Drug Use: unknown Desire information about substance/drug rehabilitation?: No Counseling given: No Adopted: No Caregiver/support person: No Lives independently: Yes Household members: spouse Housing: House Marital status: service: No Current occupational status: retired Pets and animals: Yes Do you think of yourself as: Straight/Heterosexual Current gender identity: Male Physical Exam Const: COMMON NORMALS: patient oriented x3 Neck/C-Spine: COMMON NORMALS: no JVD Chest: COMMONS NORMALS: normal inspection of the chest, normal palpation of entire chest wall, normal inspection of the breasts and normal palpation of the breasts Breast/axilla inspection: Yes normal inspection of the breasts BREAST/AXILLA PALPATION: Yes normal palpation of the breasts Resp: EFFORT & INSPECTION: Yes able to speak in complete sentences, No abnormal respiratory pattern, No tachypneic and No respiratory distress AUSCULTATION: wheezes, no bronchial breath sounds, no bronchovesicular breath sounds, no egophony, no tactile fremitus and No rub present Cardio: COMMON NORMALS: no JVD, regular rhythm, S1 normal heart sound present, S2 normal heart sound present, No gallops present (Cardio), No clicks present (Cardio), No murmurs present (Cardio), No rub (Cardio) and Peripheral pulses 2+ throughout RATE: tachycardic RHYTHM: regular rhythm HEART SOUNDS: S1 normal heart sound present and S2 normal heart sound present PERIPHERAL PULSES: Peripheral pulses 2+ throughout GI: COMMON NORMALS: Normal to inspection, nondistended, normoactive bowel sounds present, Soft to palpation, non-tender, No hepatosplenomegaly present, no masses and no bruits PALPATION: Yes Soft to palpation and Yes No hepatosplenomegaly present Neuro: COMMON NORMALS: patient oriented x3, CN's II-XII intact bilaterally, moves all extremities, no focal motor deficits, no sensory deficits noted, deep tendon reflexes 2+ bilaterally and gait normal Course Reevaluation(s): Reevaluation #1: At 2:25 PM patient was reassessed after DuoNeb, IV antibiotics and IV steroid. Patient was playing games on his computer/phone without any acute distress. Wheezing has improved significantly. She will be discharged home with oral antibiotics. Vital Signs: Vital signs: Vital Signs Temperature 98.8 F 01/16/23 12:21 Pulse Rate 105 H 01/16/23 14:57 Respiratory Rate 20 H 01/16/23 13:30 Blood Pressure 141/75 01/16/23 14:57 Pulse Oximetry 100 01/16/23 14:57 Oxygen Delivery Me thod Nasal Cannula 01/16/23 14:27 Oxygen Flow Rate 3 01/16/23 14:27 MDM - SOB/Dyspnea Medical Decision Making Patient made comfortable emergency room. Blood work, x-ray, and treatment provided. Discussed treatment with patient. Differential Diagnosis Likely acute exacerbation of chronic obstructive airways disease, congestive heart failure, community acquired pneumonia, asthma with exacerbation and pulmonary embolism Medical Records I reviewed the patient's medical records. Lab Data I reviewed the patient's lab results. 01/16/23 13:01 01/16/23 13:01 Labs/Radiology: Radiology Impressions Chest X-Ray 01/16/23 12:20 IMPRESSION: 1. Subtle nodular density in the mid left chest. Recommend CT chest to better characterize. 2. Pulmonary hyperinflation; query COPD, asthma or other obstructive lung disease. Laboratory Results WBC 13.3 10^3/uL (4.0-10.0) H 01/16/23 13:01 RBC 4.84 10^6/uL (4.1-5.3) 01/16/23 13:01 Hgb 14.3 g/dL (11.7-16.6) 01/16/23 13:01 Hct 46.2 % (42.0-52.0) 01/16/23 13:01 MCV 95.5 fl (80-94) H 01/16/23 13:01 MCH 29.5 pg (28.0-34.0) 01/16/23 13:01 MCHC 31.0 g/dL (30.0-36.0) 01/16/23 13:01 RDW 13.4 % (12.1-15.1) 01/16/23 13:01 Plt Count 272 10^3/cmm (130-400) 01/16/23 13:01 MPV 9.7 fL (7.4-10.4) 01/16/23 13:01 Neut % (Auto) 83.3 % 01/16/23 13:01 Lymph % (Auto) 6.6 % 01/16/23 13:01 [place] % (Auto) 8.4 % 01/16/23 13:01 Eos % (Auto) 0.3 % 01/16/23 13:01 Baso % (Auto) 0.8 % 01/16/23 13:01 Neut # (Auto) 11.10 10^3/uL (1.8-7.7) H 01/16/23 13:01 Lymph # (Auto) 0.9 10^3/uL (0.8-4.8) 01/16/23 13:01 [place] # (Auto) 1.1 10^3/uL (0.2-0.9) H 01/16/23 13:01 Eos # (Auto) 0.0 10^3/uL (0.0-0.8) 01/16/23 13:01 Baso # (Auto) 0.1 10^3/uL (0.0-0.1) 01/16/23 13:01 Nucleated RBC % (auto) 0 % 01/16/23 13:01 Nucleated RBCs # 0.0 /100WBC 01/16/23 13:01 Sodium 138 mmol/L (136-145) 01/16/23 13:01 Potassium 4.1 mmol/L (3.5-5.1) 01/16/23 13:01 Chloride 100 mmol/L (98-107) 01/16/23 13:01 Carbon Dioxide 28 mmol/L (22-29) 01/16/23 13:01 Anion Gap 14.1 (5-19) 01/16/23 13:01 BUN 16 mg/dL (8-23) 01/16/23 13:01 Creatinine 0.8 mg/dL (0.7-1.2) 01/16/23 13:01 GFR Calculation 96.7 mL/min (90-130) 01/16/23 13:01 Glucose 127 mg/dL (65-115) H 01/16/23 13:01 Calculated Osmolality 289 mOsm/kg (285-295) 01/16/23 13:01 Calcium 9.8 mg/dL (8.5-10.5) 01/16/23 13:01 Total Bilirubin 0.2 mg/dL (0.15-1.2) 01/16/23 13:01 AST 10 U/L (0-40) 01/16/23 13:01 ALT 8 U/L (0-41) 01/16/23 13:01 Alkaline Phosphatase 96 U/L (40-130) 01/16/23 13:01 Total Protein 7.4 g/dL (6.6-8.7) 01/16/23 13:01 Albumin 4.2 g/dL (3.5-5.2) 01/16/23 13:01 Globulin 3.2 g/dL (1.3-4.6) 01/16/23 13:01 Other Data I personally reviewed and interpreted the following: Discharge Plan Discharge Patient Disposition: Home Clinical Impression: COPD (chronic obstructive pulmonary disease), Acute exacerbation of chronic obstructive airways disease Condition: Stable Prescriptions: New Medrol (G[place]ar) 4 mg tablets,dose pack 4 mg PO QAM Qty: 21 0RF azithromycin 250 mg tablet 250 mg PO DAILY 5 Days Qty: 6 0RF No Action albuterol sulfate 2.5 mg /3 mL (0.083 %) solution for nebulization 2.5 mg inhalation Q4H PRN (Reason: shortness of breath or wheezing) Qty: 300 5RF azelastine 205.5 mcg (0.15 %) spray,non-aerosol 1 spray INTRANASAL BID 30 Days Qty: 30 4RF Rx Instructions: administer into each nostril guaifenesin 400 mg tablet 400 mg PO DAILY Qty: 30 5RF omeprazole 20 mg capsule,delayed release(DR/EC) 20 mg PO BID Qty: 60 5RF topiramate 100 mg tablet 100 mg PO .at bedtime Qty: 30 5RF trazodone 100 mg tablet 200 mg PO BEDTIME Qty: 60 5RF (DME) nebulizers Misc See Rx Instructions .ROUTE .MEDSUPPLY Qty: 1 0RF Rx Instructions: As directed (DME) Disposable nebulizer circuit See Rx Instructions .ROUTE .MEDSUPPLY Qty: 1 0RF Rx Instructions: As directed mupirocin 2 % ointment 1 applic topical BID Qty: 22 0RF doxycycline hyclate [Vibramycin] 100 mg capsule 100 mg PO BID Qty: 20 0RF prednisone 5 mg tablet 5 mg PO DAILY Qty: 7 0RF albuterol sulfate 90 mcg/actuation HFA aerosol inhaler 2 puff inhalation Q6H PRN (Reason: shortness of breath or wheezing) Qty: 8.5 3RF Rx Instructions: Insurance does not cover Ventolin Brand. fluticasone propionate [Flonase Allergy Relief] 50 mcg/actuation spray,suspension 2 spray intranasal DAILY 30 Days Qty: 16 3RF Rx Instructions: administer into each nostril Trelegy Ellipta 100-62.5-25 mcg blister with device 1 inh inhalation Q24H Qty: 60 0RF aspirin 81 mg Tablet,Delayed Release (Dr/Ec) 81 mg PO DAILY cholecalciferol (vitamin D3) [Vitamin D3] 25 mcg (1,000 unit) Capsule 25 mcg PO DAILY diclofenac sodium [Voltaren] 1 % Gel 2 g TOPICAL QID PRN (Reason: NECK PAIN) sumatriptan succinate 50 mg Tablet 50 mg PO Q3D PRN (Reason: headaches) Rx Instructions: PATIENT TO TAKE ONCE EVERY THREE DAYS omega-3 fatty acids Capsule 1,000 mg PO BID Discharge Orders: Discharge ED (Routine); Ordered 01/16/23 Ordered By: Augustina Sandoval Referrals: Judith Lieberman, [facility] [Primary Care Provider] - Patient Instructions: Opioid Safety, Pain Management Coding Level of Care Code ED Supervisor Purification for Oli Moise
[2023-01-16 13:31] LABS: Alanine Aminotransferase 8 U/L (0-41); Albumin Level 4.2 g/dL (3.5-5.2); Alkaline Phosphatase 96 U/L (40-130); Anion Gap 14.1 (5-19); Aspartate Amino Transferase 10 U/L (0-40); Blood Urea Nitrogen 16 mg/dL (8-23); Calcium 9.8 mg/dL (8.5-10.5); Carbon Dioxide 28 mmol/L (22-29); Chloride 100 mmol/L (98-107); Globulin 3.2 g/dL (1.3-4.6); Glomerular Filtration Rate 96.7 mL/min (90-130); Glucose 127 mg/dL (65-115); Osmolality Calculated 289 mOsm/kg (285-295); Potassium 4.1 mmol/L (3.5-5.1); Sodium 138 mmol/L (136-145); Total Bilirubin 0.2 mg/dL (0.15-1.2); Total Protein 7.4 g/dL (6.6-8.7)
[2023-01-16] MEDS: albuterol 2.5 mg/3 mL Neb 5 MG INHALATION (13:37)
[2023-01-16] MEDS: ipratropium-albuterol 3 mL Neb INHALATION (13:37)
[2023-01-16 13:43] VITALS: PULSE 100
[2023-01-16] MEDS: cefTRIAXone 1,000 MG in sodium chloride 0.9% (plus) 50 ML 100 MG IV (14:18)
[2023-01-16] MEDS: dexamethasone 10 mg/mL INJ IVP (14:18)
[2023-01-16 14:27] VITALS: BP 141/75; O2SAT 98
[2023-01-16 14:57] VITALS: BP 141/75; PULSE 105; O2SAT 100
--- NOTE | 2023-01-17 11:44 | PC.NURSE ---
GILDA LOPEZ CONTACTED ED FOR RX CLARIFICATION. STEPHAN BRASWELL GAVE VERBAL ORDER FOR MEDROL PACK
== END 2023-01-16 14:58 | disposition home or self-care (01) ==
PROVIDERS: Emergency Provider Family Medicine; PCP Nurse Practitioner
DX: J44.1 Chronic obstructive pulmonary disease with (acute) exacerbation (principal); Z79.82 Long term (current) use of aspirin; F17.210 Nicotine dependence, cigarettes, uncomplicated; Z86.19 Personal history of other infectious and parasitic diseases
CPT/HCPCS: 36415; 71045; 80053; 85025; 87040; 93005; 94640; 96365; 96375; 99285; J0696; J1100; J7613

== ENCOUNTER → 2023-03-15 13:26 | Outpatient (BNVA) | payer MEDICARE, MEDICAID, SELFPAY | PROVIDERS: PCP Nurse Practitioner; Referring Provider Family Medicine; Visit Provider Internal Medicine Pulmonary Disease | DX: R91.1 Solitary pulmonary nodule; J44.9 Chronic obstructive pulmonary disease, unspecified; J30.9 Allergic rhinitis, unspecified; F17.218 Nicotine dependence, cigarettes, with other nicotine-induced disorders | CPT/HCPCS: 99214 ==

== ENCOUNTER 2023-03-22 05:44 | Day surgery (SDC) | payer MEDICARE, MEDICAID, OTHER, SELFPAY ==
[2023-03-18 12:56] VITALS: BMI 19.3
[2023-03-22] VITALS (15 sets, daily range): BP systolic 116–197; BP diastolic 63–92; PULSE 90–120; RESP 16–20; TEMP 36.9–37.5; O2SAT 90–98
--- NOTE | 2023-03-22 06:02 | CT_ITS ---
WS: [id number] CT CHEST TECHNIQUE: Noncontrast CT of the chest with coronal and sagittal reformatted images. CLINICAL INFORMATION: For navigational bronchoscopic biopsy of right upper lobe no COMPARISON: CT chest 12/28/2022 and PET/CT 02/04/2023 [id number] scans at [facility] use at least one of these dose optimization techniques: automated e xposure control; mA and/or kV adjustment per patient size (includes targeted exams where dose is matc hed to clinical indication); or iterative reconstruction. FINDINGS: Stable spiculated FDG-avid mass in the RIGHT upper lobe. Smaller nodule RIGHT upper lobe ne ar the lung apex anteriorly measuring 5 mm appears stable. Pleural thickening in the upper lobes. A f ew additional opacities in the RIGHT lung apex may be inflammatory. Tree-in-bud opacities in the LEFT greater than RIGHT lower lobe. Slightly spiculated 7 mm nodule in the LEFT upper lobe and 4 mm in th e LEFT upper lobe anteriorly. A few enlarged LEFT axillary lymph nodes. Cholelithiasis. Small LEFT adrenal adenoma. Normal GE junction. No other significant changes compared to the prior studies IMPRESSION: Exam obtained for bronchoscopy planning purposes
[2023-03-22] MEDS: sodium chloride 0.9% 1,000 ML 30 ML IV (06:41)
[2023-03-22] MEDS: ipratropium-albuterol 3 mL Neb INHALATION (07:05)
--- NOTE | 2023-03-22 07:10 | W.PM.OPSUD ---
Surgery/Procedure H&P Update DATE OF PROCEDURE: March 22, 2023 DATE H&P PERFORMED: 03/15/23 H&P UPDATE INFORMATION: I have reviewed H&P completed within last 30 days, I have examined patient prior to procedure and No changes to prior documentation CHANGES TO PREVIOUS DOCUMENTATION: None PREOP DIAGNOSIS: suspected malignancy PRIMARY INDICATION FOR PROCEDURE: PET active lung lesion - need biopsies to rule out malignancy PLANNED PROCEDURE: Operation Date: 03/22/23 07:00 Proposed Procedures p ION Bronch, EBUS, 57901, 01496, 32749, 32452, 41145, 94322, 97446, 28236, 59046, 07941, 15344, 15100, 56524, 12816,R91.1(Not Applicable) - Joaquín Tabor MD s Ebus(Not Applicable) - Joaquín Tabor MD
--- NOTE | 2023-03-22 07:24 | SC_ITS ---
WS: [id number] EXAMINATION: C-arm FL for Bronchoscopy ORDER DATE: 03/22/2023 7:24 AM COMPARISON: None HISTORY: RUL pulmonary nodule PROCEDURE/impression: C-arm images provided in the OR for biopsy guidance for upper lobe nodule biopsy
[2023-03-22] MEDS: lidocaine 1% INJ 10 mL (per mL) XX (07:35)
[2023-03-22 08:34] LABS: Apprearance, Bronch Wash Bloody (CLEAR); Color, Bronc Wash Red
[2023-03-22 08:41] LABS: Cyto Order Verification Order Verified
--- NOTE | 2023-03-22 09:08 | XR_ITS ---
WS: [id number] EXAMINATION: XR chest 1V portable 71651 REASON FOR EXAM: pneumonia COMPARISON: None numerous recent studies ORDER DATE: 03/22/2023 9:27 AM FINDINGS: There are scattered perihilar granulomatous calcifications. There are chronically increased perihilar /basilar bronchovascular and interstitial thickening with hyperinflation with poorly defined bilater al upper lung nodules as noted previously. The cardiac and mediastinal outlines are unremarkable. Th ere are no pleural effusions. Chronic degenerative spine changes are present. IMPRESSION: DIFFUSE PULMONARY CHANGES OF COPD. PULMONARY NODULES AND CHRONIC LUNG CHANGES STABLE COMPARED WITH PREVIOUS.
--- NOTE | 2023-03-22 09:09 | P.OP_ITS ---
Operative Report Date of procedure: March 22, 2023 Pre-op diagnosis: Preop Diagnosis suspected malignancy Post-op diagnosis: same Procedure done: Procedure: 65745 Dx Bronchoscope w/Washings or airway inspection 60842 Bx Bronchoscope w/Brushings or protected brushings 34214 Dx Bronchoscope w/BAL 13062 Bronch with computer image guided Navigational Bronchoscopy 42924 Bronchoscopy w/Transbronchial lung biopsy(s), single lobe 83546 Bronchoscopy w/Transbronchial needle aspiration biopsy(s), tracheal, main stem, and/or lobar bronchus 72301 Bronchoscopy w/ therapeutic aspiration of the tracheobronchial tree (clearance of airway secretions, removal of mucus plugs) 28153 EBUS Sampling >=3 nodes 93569 EBUS Diag or Interven Peripheral lesion (radial EBUS) Surgeon: Joaquín Tabor MD FCCP/pulmonary critical care Brief History: Mr. Naren Pritchard is a 67-year-old gentleman with gold class D COPD, chronic smoker, previously followed my colleague Dr. Walker for COPD; now referred again by patient's PCP Dr. Ellie Irene from [place] for abnormal low-dose CT/PET CT -Low-dose CT 11/2022 which showed right upper lobe nodule 6.6 mm and other subcentimeter nodules compared to LDCT 05/17/2022-there is increase in size of RUL lesion -subsequent PET CT scan 02/04/2023 showed RUL 6.6 mm spiculated pulmonary nodule SUV 4; interval development of 3 hypermetabolic pulmonary nodules RUL. There is mild accumulated activity in the ascending colon with no discrete focus of intense activity in the region of cecum without definite CT correlate SUV maximum 12 -Today he is is scheduled for robotic navigational bronchoscopy guided biopsy of right upper lobe lesion with elevated uptake to rule out malignancy -Today morning CT done for Ion protocol for navigational bronchoscopy showed increase in groundglass component surrounding solid nodule; total measuring 16 mm Procedure: Procedure: 91116 Dx Bronchoscope w/Washings or airway inspection 45587 Bx Bronchoscope w/Brushings or protected brushings 07738 Dx Bronchoscope w/BAL 74597 Bronch with computer image guided Navigational Bronchoscopy 81316 Bronchoscopy w/Transbronchial lung biopsy(s), single lobe 07150 Bronchoscopy w/Transbronchial needle aspiration biopsy(s), tracheal, main stem, and/or lobar bronchus 15310 Bronchoscopy w/ therapeutic aspiration of the tracheobronchial tree (clearance of airway secretions, removal of mucus plugs) 89582 EBUS Sampling >=3 nodes 76075 EBUS Diag or Interven Peripheral lesion (radial EBUS) Indication: Description of the procedure: The procedure was explained to the patient and the consent was obtained.? The patient was brought to the OR. Anesthesia: The patient underwent endotracheal intubation for general anesthesia. Local anesthesia: The distal trachea-Juana, right and left mainstem bronchi were anesthetized with 1% lidocaine, 3 mL. Following induction of general anesthesia, the flexible bronchoscope was advanced through the? ET tube.? The? lower trachea mucosa appeared normal, no endotracheal lesion was seen.? The juana was sharp.? The juana, the right and left mainstem bronchi are anesthetized with 1% lidocaine.? In a systematic manner bilateral bronchial tree was then examined. ? The bronchoscope was then introduced into the right mainstem bronchus.? The right upper lobe, right middle lobe and right lower lobe bronchi were examined up to the third subsegmental level and no abnormalities were identified.Mucosa appeared normal with no endobronchial lesion, active bleeding or mucous plug.There were significant clear as well as some mucus secretions which were suctioned right away.(04866). The bronchoscope was advanced into the left mainstem bronchus.? The mucosa appeared normal with no endobronchial lesions.? The left upper lobe, lingula and left lower lobe bronchi were examined up to the third subsegmental level and no abnormalities were identified.? Mucosa appeared normal with no endobronchial lesion, active bleeding or mucous plug.??There were some mucus secretions in left lower lobe-which were suctioned right away.(28093) After initial inspection as well as airway clearance with flexible bronchoscope(45685),?ION robotic assisted navigational bronchoscope (39247)?was introduced-and right upper lobe lesion was accessed.? After?confirming the location with radial EBUS (91592), under the fluoroscopy guidance? -we were able to obtain biopsies using fine-needle, Cytobrush, forceps.There was some evidence of grade 2 bleeding-cold saline was instilled.? Bronchoalveolar lavage was also taken from right upper lobe. After making sure there is no active bleeding navigational bronchoscope was retr acted and introduced?Endobronchial ultrasound EBUS (65551). ? With the help of EBUS, identified a lymph node at station 4L, station 11 L and station 7.??Fine-needle aspiration biopsies? were taken from station 4L, station 11 L and station 7.? (54885) After taking the biopsies EBUS retracted-diagnostic bronchoscope was introduced to check for any evidence of active bleeding. There was some evidence of bleeding-controlled with instillation of cold saline. After making sure there is no active bleeding bronchoscope was retracted and procedure terminated. ? Samples: A.? Right upper lobe lesion 1.? Total of 4 passes were made using?needle aspiration(65596); we do not have onsite pathology and hence all the material was placed in formalin and sent for histopathology 2.? Targeting the same area 5 passes were made using?forceps (74496);?we do not have onsite pathology and hence all the material was placed in formalin and sent for histopathology 3. Targeting the same area 1 pass was taken with Cytobrush (73490); sample sent in formalin to histopathology 4.?Bronchoscope was wedged at the entrance of the apical segment of right upper lobe, 20 mL of saline was instilled and returned 12 mL of bronchoalveolar lavage (03881).? The fluid was mixed with blood and specks of tissue. Samples for cell count, cytology, microbiology cultures B.?EBUS guided? Fine-needle aspiration biopsies? were taken from station 4L, station 11 L and station 7.? (83837) 1.? Total of 3 passes were made using needle aspiration(27763) from station 4L; all the material was placed in formalin and sent for histopathology 2.? Total of 3 passes were made using needle aspiration(20275) from station 11 L; all the material was placed in formalin and sent for histopathology 3.? Total of 3 passes were made using needle aspiration(48976) from station 7: all the material was placed in formalin and sent for histopathology ? Complications: None.The patient was extubated and brought to the PACU in stable condition. Postprocedure chest x-ray: There is no evidence of pneumothorax Disposition: Patient can be discharged home in stable condition. ? Pt? is aware that I am going to call him? to update final biopsy results once available. Related Problem List Diagnoses (1) Right upper lobe pulmonary nodule:
[2023-03-22 09:40] LABS: Bronch Source Right Upper Lobe; PATH Referral Yes
[2023-03-22] MEDS: ipratropium-albuterol 3 mL Neb (09:45)
[2023-03-22] MEDS: HYDROmorphone 1 mg/mL INJ 1 mL 0.5 MG IVP (10:05)
[2023-03-22 11:03] LABS: Total Cells Counted Bronch 200
--- NOTE | 2023-03-22 13:54 | ANE.PACU2 ---
Inpatient post-anesthesia follow up: Airway intact: Yes Vital signs: Temperature 98.8 F Pulse Rate 105 Respiratory Rate 16 Blood Pressure 121/63 Pulse Oximetry 90 Oxygen Delivery Me thod Nasal Cannula Oxygen Flow Rate 3 Fraction of Inspir ed Oxygen Hydration adequate: Yes Nausea and vomiting: No Pain level: 2 Mental status: Baseline
== END 2023-03-22 11:09 | disposition home or self-care (01) ==
PROVIDERS: PCP Nurse Practitioner; Visit Provider Internal Medicine Pulmonary Disease
PROC: 0BJ08ZZ Inspection of Tracheobronchial Tree, Via Natural or Artificial Opening Endoscopic (ICD-10-PCS; CPT 31622; principal; 2023-03-22 07:00)
PROC: BB4BZZZ Ultrasonography of Pleura (ICD-10-PCS; 2023-03-22 07:00)
DX: R91.1 Solitary pulmonary nodule (principal); J44.9 Chronic obstructive pulmonary disease, unspecified; K21.9 Gastro-esophageal reflux disease without esophagitis; Z86.19 Personal history of other infectious and parasitic diseases; J30.9 Allergic rhinitis, unspecified; F17.218 Nicotine dependence, cigarettes, with other nicotine-induced disorders
CPT/HCPCS: 31623; 31624; 31627; 31628; 31629; 31645; 31653; 31654; 71045; 71250; 76000; 80503; 87070; 87205; 88112; 88305; 89050; 94640; J1170; J2371; J2405; J2704; J2710; J3010; J3490; J7030

== ENCOUNTER → 2023-04-15 14:17 | Outpatient (BNVA) | payer MEDICARE, MEDICAID, SELFPAY | PROVIDERS: PCP Nurse Practitioner; Referring Provider Nurse Practitioner; Visit Provider Surgery | DX: J44.9 Chronic obstructive pulmonary disease, unspecified (principal); R94.8 Abnormal results of function studies of other organs and systems | CPT/HCPCS: 99204; 99214 ==

== ENCOUNTER → 2023-08-18 14:25 | Outpatient (BNVA) | payer OTHER, SELFPAY | PROVIDERS: PCP Nurse Practitioner; Visit Provider Family Medicine | DX: Z01.818 Encounter for other preprocedural examination (principal) | CPT/HCPCS: 80053; 85025 ==

== ENCOUNTER 2023-12-09 01:17 | Inpatient (IN) | payer OTHER, SELFPAY ==
[2023-12-09] VITALS (49 sets, daily range): BP systolic 92–147; BP diastolic 54–93; PULSE 76–120; RESP 14–34; TEMP 36.4–37.1; O2SAT 91–100; BMI 15.8
--- OUTSIDE RECORDS SUMMARY | 2023-12-09 01:22 | XMS_ITS | Continuity of Care Document ---
Author Name Unknown Organization [facility] Address [address] [place], [place] [address] [address] Encounter DIAZ_GENNY [id number] Date(s): 11/10/23 - 11/14/23 [facility] [address] [place] [id number] Encounter Diagnosis COPD with exacerbation(Discharge Diagnosis) - 11/10/23 Hypercapnia(Discharge Diagnosis) - 11/10/23 Discharge Disposition: Home or Self Care Attending Physician: DARA CASAS MD Admitting Physician: DARA CASAS MD Allergies, Adverse Reactions, Alerts No Known Allergies Assessment and Plan Extracted from: Title:Admission H & P Author:DARA CASAS MD Date:11/10/23 [id number] male with pa st medical history of COPD??who presented to the emergency room at 2039.?? Shortness of breath and chest pain.?? He states he has had cough productive of white/clear sputum, progressive shortness of breath??but denies any fevers, chills, chest pain, nausea, vomiting, diarrhea, constipation.?On arrival to emergency room??initial temperature was??98??heart rate was 110??blood pressure 113/91 respiratory rate 30??O2 saturation??95% on 3 L.?? Further workup showed??white blood cell count of 7.8,??BNP 32,??flu and COVID antigen??negative, lactic acid negative.?? ABG showed pH 7. 19??pCO2 58 pO2 95??HCO3 22. ??Chest x- ray was negative for acute findings.?? He was started on BiPAP??continuous, given??IV ceftriaxone, azithromycin, normal saline, DuoNebs. ??He is being admitted to the inpatient hospital service for further management. ?? 1.?? Acute hypoxic hypercapnic respiratory failure: Likely due to COPD exacerbation. ABG showing pH 7. 19??pCO2 58 pO2 95??HCO3 22. Continue BiPAP to maintain saturation above 92%.?? Repeat ABG with pH 7.18 pCO2 65 pO2 115??HCO3 24.3. ??BiPAP adjustments made, repeat??ABG in??1hr. CXR??without acute findings.?DuoNebs, Pulmicort, Solu-Medrol. ??IV ceftriaxone azithromycin??continued. ??Telemetry monitoring. ?? 2. ??COPD exacerbation: DuoNeb, Pulmicort, Solu-Medrol, antibiotics above ?? 3.?? Tobacco abuse: Counseled on cessation, declining nicotine patch at this time ?? DVT ppx:Lovenox??subcu ?? PCU Inpatient Telemetry ? Functional Status 11/10/23 ADLs Independent Medications Albuterol (Eqv-ProAir HFA) 90 mcg/inh inhalation aerosol 1 puff(s), Inhale, [id number], PRN shortness of breath or wheezing, INHALE 1 PUFF INTO LUNGS EVERY 6 HOURS NEEDED FOR SHORTNESS OF BREATH OR WHEEZING Start Date: 11/11/23 Status: Ordered aspirin 81 mg oral capsule = 1 cap(s), Oral, Daily Start Date: 11/11/23 Status: Ordered cholecalciferol 1000 intl units oral tablet, chewable 1 tab(s), Chewed, Daily Start Date: 11/11/23 Status: Ordered cyanocobalamin 1000 mcg oral tablet, extended release = 1 tab(s), Oral, Daily Start Date: 11/11/23 Status: Ordered DuoNeb 0.5 mg-2.5 mg/3 mL inh soln 3 mL, Inhale, QID, # 84 mL, 0 Refill(s), Pharmacy: [facility], 162.56, cm, 11/09/2421:11:00 CDT, Patient Height, 51.5, kg, 11/14/23 5:37:00 CDT, Patient Weight (kg) Start Date: 11/14/23 Stop Date: 11/21/23 Status: Ordered Fish Oil 1000 mg oral capsule = 1 cap(s), Oral, BID Start Date: 11/11/23 Status: Ordered fluticasone 50 mcg/inh nasal spray 1 spray(s), Nasal, BID Start Date: 11/11/23 Status: Ordered guaiFENesin 400 mg oral tablet = 1 tab(s), Oral, TID, PRN for congestion Start Date: 11/11/23 Status: Ordered levOCARNitine 500 mg oral capsule = 2 cap(s), Oral, Daily, 0 Refill(s) Start Date: 11/11/23 Status: Ordered levoFLOXacin 750 mg oral tablet = 1 tab(s), Oral, q24H, X 3 day(s), # 3 tab(s), 0 Refill(s), Pharmacy: [facility], 162.56, cm, 11/10/23 22:11:00 CDT, Patient Height, 51.5, kg, 11/14/23 5:37:00 CDT, Patient Weight (kg) Start Date: 11/14/23 Stop Date: 11/17/23 Status: Ordered memantine 5 mg oral tablet = 1 tab(s), Oral, BID Start Date: 11/11/23 Status: Ordered multivitamin 1 tab(s), Oral, Daily Start Date: 11/11/23 Status: Ordered pantoprazole 40 mg oral delayed release tablet = 1 tab(s), Oral, Daily AC Breakfast, # 30 tab(s), 0 Refill(s), Pharmacy: [facility], 162.56, cm, 11/10/23 22:11:00 CDT, Patient Height, 51.5, kg, 11/14/23 5:37:00 CDT, Patient Weight(kg) Start Date: 11/14/23 Status: Ordered predniSONE 20 mg oral tablet = 2 tab(s), Oral, Daily, X 7 day(s), # 14 tab(s), 0 Refill(s), Pharmacy: [facility], 162.56, cm, 11/10/23 22:11:00 CDT, Patient Height, 51.5, kg, 11/14/23 5:37:00 CDT, Patient Weight (kg) Start Date: 11/14/23 Stop Date: 11/21/23 Status: Ordered traZODone 100 mg oral tablet = 1 tab(s), Oral, Daily at Bedtime Start Date: 11/11/23 Status: Ordered Trelegy Ellipta 200 mcg-62.5 mcg-25 mcg/inh inhalation powder 1 puff(s), Inhale, Daily, 0 Refill(s) Start Date: 11/11/23 Status: Ordered Mental Status 11/14/23 Orientation Assessment Oriented x 4 11/10/23 Affect/Behavior Appropriate, Calm, Cooperative Hallucinations Present None Problem List Condition Confirmation Course Effective Dates Status Health St atus Informant Impaired gas exchange 1 Confirmed Active Tissue perfusion alteration 2 Confirmed Active 1Problem added automatically by system based on initiation of the Impaired Gas Exchange Plan of Care. 2Problem added automatically by system based on initiation of Tissue Perfusion ??? Cardiopulmonary, Altered Plan of Care. Procedures Procedure Date Related Diagnosis Body Site Status Appendectomy Completed Results Laboratory List Name Date .BG W/O2 Sat DM Art POC 3 11/12/23 .Differential Automated 11/12/23 Complete Blood Count w/Diff Auto (CBC w/ Diff Auto) 11/12/23 Comprehensive Metabolic Profile 11/12/23 Magnesium Serum 11/12/23 .BG W/O2 Sat DM Art POC 3 11/11/23 .BG W/O2 Sat DM Art POC 3 11/11/23 .BG W/O2 Sat DM Art POC 3 11/11/23 .Differential Automated 11/11/23 Basic Metabolic Profile w/Total Calcium (BMP w/Total Calcium) 11/11/23 Complete Blood Count w/Diff Auto (CBC w/ Diff Auto) 11/11/23 Magnesium Serum 11/11/23 Phosphorus Serum 11/11/23 .BG W/O2 Sat DM Art POC 3 11/10/23 .BG W/O2 Sat DM Art POC 3 11/10/23 Urinalysis w/Reflex Micro/Reflex Culture 11/10/23 .BG W/O2 Sat DM Art POC 3 11/10/23 .Differential Automated 11/10/23 BNP 11/10/23 C Reactive Protein (CRP) 11/10/23 COVID19 SARS Ag STAN (Sherrie COVID Antigen ) 11/10/23 Complete Blood Count w/Diff Auto 11/10/23 Comprehensive Metabolic Profile 11/10/23 Influenza A B Screen 11/10/23 Lactic Acid w/ Reflex 11/10/23 Prothrombin Time w/INR (PT w/INR) 4 Most recent to oldest [Reference Range]: 1 2 3 4 5 6 7 Dipstick Type? Auto (11/10/23 6:09 PM) Reflex Urine Culture? No (11/10/23 6:09 PM) Reflex Microscopic Type? Not Reqd (11/10/23 6:09 PM) eGFR [>=90 mL/min/1.73m?? ] 74 mL/min/1.73 m?? 1 *LOW* (11/12/23 7:33 AM) 87 mL/min/1.7 3m?? 2 *LOW* (11/11/23 2:21 AM) 77 mL/min/1.7 3m?? 3 *LOW* (11/10/23 3:49 PM) nRBC% Auto 0 % *NA* (11/12/23 7:33 AM) 0 % *NA* (11/11/23 2:21 AM) 0 % *NA* (11/10/23 3:49 PM) nRBC# Auto 0 /100 WBC *NA* (11/12/23 7:33 AM) 0 /100 WBC *NA* (11/11/23 2:21 AM) 0 /100 WBC *NA* (11/10/23 3:49 PM) RBC [4.45-5.99] 4.41 *LOW* (11/12/23 7:33 AM) 4.11 *LOW* (11/11/23 2:21 AM) 4.46 (11/10/23 3:49 PM) PT [9.6-12.4 second(s)] 10.6 second(s) (11/10/23 3:49 PM) INR 0.9 4 *NA* (11/10/23 3:49 PM) BUN [8-17 mg/dL] 21 mg/dL *HI* (11/12/23 7:33 AM) 13 mg/dL (11/11/23 2:21 AM) 13 mg/dL (11/10/23 3:49 PM) Arterial Puncture Charge Yes (11/12/23 10:43 AM) Yes (11/11/23 7:30 PM) Yes (11/11/23 1:12 PM) Yes (11/11/23 8:03 AM) Yes (11/10/23 8:41 PM) Yes (11/10/23 6:40 PM) Yes (11/10/23 4:42 PM) Albumin [3.6-4.9 g/dL] 3.1 g/dL *LOW* (11/12/23 7:33 AM) 3.5 g/dL *LOW* (11/10/23 3:49 PM) Alkaline Phosphatase [51-135 U/L] 95 U/L (11/12/23 7:33 AM) 107 U/L (11/10/23 3:49 PM) ALT [31-64 U/L] 24 U/L *LOW* (11/12/23 7:33 AM) 15 U/L *LOW* (11/10/23 3:49 PM) Anion Gap [3.1-10.9 mmol/L] 9.0 mmol/L (11/12/23 7:33 AM) 6.0 mmol/L (11/11/23 2:21 AM) 5.0 mmol/L (11/10/23 3:49 PM) AST [16-36 U/L] 15 U/L *LOW* (11/12/23 7:33 AM) 14 U/L *LOW* (11/10/23 3:49 PM) Basophils# Auto [1.0-1.0] 0.0 *LOW* (11/12/23 7:33 AM) 0.0 *LOW* (11/11/23 2:21 AM) 0.1 *LOW* (11/10/23 3:49 PM) Basophils% Auto [1.0-4.0 %] 0.1 % *LOW* (11/12/23 7:33 AM) 0.1 % *LOW* (11/11/23 2:21 AM) 1.1 % (11/10/23 3:49 PM) Bili Total [0.1-0.9 mg/dL] 0.1 mg/dL (11/12/23 7:33 AM) 0.2 mg/dL (11/10/23 3:49 PM) BUN/Crea Ratio [6.01-19.99] 19.09 (11/12/23 7:33 AM) 13.00 (11/11/23 2:21 AM) 11.82 (11/10/23 3:49 PM) Calcium [8.6-10.0 mg/dL] 8.9 mg/dL (11/12/23 7:33 AM) 8.4 mg/dL *LOW* (11/11/23 2:21 AM) 8.6 mg/dL (11/10/23 3:49 PM) Creatinine [0.6-1.3 mg/dL] 1.1 mg/dL (11/12/23 7:33 AM) 1.0 mg/dL (11/11/23 2:21 AM) 1.1 mg/dL (11/10/23 3:49 PM) Eos# Auto [2.0-2.0] 0.0 *LOW* (11/12/23 7:33 AM) 0.0 *LOW* (11/11/23 2:21 AM) 0.9 *LOW* (11/10/23 3:49 PM) Eosinophils% Auto [1.0-2.0 %] 0.0 % *LOW* (11/12/23 7:33 AM) 0.0 % *LOW* (11/11/23 2:21 AM) 11.0 % *HI* (11/10/23 3:49 PM) Globulin 4 *NA* (11/12/23 7:33 AM) 4 *NA* (11/10/23 3:49 PM) HCT [40.1-53.9 %] 41.2 % (11/12/23 7:33 AM) 38.2 % *LOW* (11/11/23 2:21 AM) 41.6 % (11/10/23 3:49 PM) Hgb [13.4-17.6 g/dL] 13.3 g/dL *LOW* (11/12/23 7:33 AM) 12.6 g/dL *LOW* (11/11/23 2:21 AM) 13.7 g/dL (11/10/23 3:49 PM) Potassium [3.6-5.2 mEq/L] 4.5 mEq/L (11/12/23 7:33 AM) 5.0 mEq/L (11/11/23 2:21 AM) 3.7 mEq/L (11/10/23 3:49 PM) Lymphocytes# Auto [2.0-4.0] 0.6 *LOW* (11/12/23 7:33 AM) 0.4 *LOW* (11/11/23 2:21 AM) 0.9 *LOW* (11/10/23 3:49 PM) Lymphocytes% Auto [22.0-50.0 %] 6.4 % *LOW* (11/12/23 7:33 AM) 9.2 % *LOW* (11/11/23 2:21 AM) 11.4 % *LOW* (11/10/23 3:49 PM) MCH [27.1-32.9 pg] 30.1 pg (11/12/23 7:33 AM) 30.7 pg (11/11/23 2:21 AM) 30.8 pg (11/10/23 3:49 PM) MCHC [32.1-35.9] 32.2 (11/12/23 7:33 AM) 33.1 (11/11/23 2:21 AM) 33.0 (11/10/23 3:49 PM) MCV [80.1-96.9 fL] 93.6 fL (11/12/23 7:33 AM) 92.9 fL (11/11/23 2:21 AM) 93.3 fL (11/10/23 3:49 PM) Monocytes# Auto [1.0-1.0] 0.1 *LOW* (11/12/23 7:33 AM) 0.1 *LOW* (11/11/23 2:21 AM) 0.5 *LOW* (11/10/23 3:49 PM) Monocytes% Auto [3.0-8.0 %] 1.2 % *LOW* (11/12/23 7:33 AM) 2.4 % *LOW* (11/11/23 2:21 AM) 6.3 % (11/10/23 3:49 PM) Neutrophils# Auto [3.0-7.0] 8.0 *HI* (11/12/23 7:33 AM) 3.6 (11/11/23 2:21 AM) 5.4 (11/10/23 3:49 PM) Neutrophils% Auto [38.0-69.0 %] 92.3 % *HI* (11/12/23 7:33 AM) 88.3 % *HI* (11/11/23 2:21 AM) 70.2 % *HI* (11/10/23 3:49 PM) Plt Cnt [151-449 x10^3/mcL] 281 x10^3/mcL (11/12/23 7:33 AM) 239 x10^3/mcL (11/11/23 2:21 AM) 257 x10^3/mcL (11/10/23 3:49 PM) Prot Total [6.5-8.2 g/dL] 6.7 g/dL (11/12/23 7:33 AM) 7.4 g/dL (11/10/23 3:49 PM) RDW [11.6-14.4 %] 14.2 % (11/12/23 7:33 AM) 13.7 % (11/11/23 2:21 AM) 14.0 % (11/10/23 3:49 PM) WBC [4.6-10.9 K/uL] 8.7 K/uL (11/12/23 7:33 AM) 4.1 K/uL *LOW* (11/11/23 2:21 AM) 7.8 K/uL (11/10/23 3:49 PM) Sodium [136-149 mmol/L] 147 mmol/L (11/12/23 7:33 AM) 143 mmol/L (11/11/23 2:21 AM) 143 mmol/L (11/10/23 3:49 PM) Albumin/Globul in Ratio [1.01-2.49] 0.86 *LOW* (11/12/23 7:33 AM) 0.90 *LOW* (11/10/23 3:49 PM) Ca Corrected [8.6-10.0 mg/dL] 9.6 mg/dL (11/12/23 7:33 AM) 9.0 mg/dL (11/10/23 3:49 PM) Glucose [71-109 mg/dL] 199 mg/dL *HI* (11/12/23 7:33 AM) 173 mg/dL *HI* (11/11/23 2:21 AM) 111 mg/dL *HI* (11/10/23 3:49 PM) MPV [7.5-10.3 fL] 9.0 fL (11/12/23 7:33 AM) 8.6 fL (11/11/23 2:21 AM) 8.1 fL (11/10/23 3:49 PM) Chloride [96-109 mmol/L] 110 mmol/L *HI* (11/12/23 7:33 AM) 108 mmol/L (11/11/23 2:21 AM) 105 mmol/L (11/10/23 3:49 PM) Italo's Test Positive (11/12/23 10:43 AM) Positive (11/11/23 7:30 PM) Positive (11/11/23 1:12 PM) Positive (11/11/23 8:03 AM) Positive (11/10/23 8:41 PM) Positive (11/10/23 6:40 PM) Positive (11/10/23 4:42 PM) Ur Appearance [Clear] Clear (11/10/23 6:09 PM) Ur Bili [Negative] Negative (11/10/23 6:09 PM) Ur Blood [Negative] Negative (11/10/23 6:09 PM) Ur Collection Source U Clean Catch (11/10/23 6:09 PM) Ur Color [Straw] Yellow (11/10/23 6:09 PM) Ur Glucose [Negative] Negative (11/10/23 6:09 PM) Ur Ketone [Negative] Negative (11/10/23 6:09 PM) Ur Leukocyte Esterase [Negative] Negative (11/10/23 6:09 PM) Ur Nitrite Negative (11/10/23 6:09 PM) Ur pH 5.0 (11/10/23 6:09 PM) Ur Specific [place] 1.015 (11/10/23 6:09 PM) Ur Urobilinogen 0.2 (11/10/23 6:09 PM) B Type Natriuretic Peptide [1-99 pg/mL] 32 pg/mL (11/10/23 3:49 PM) Magnesium [1.90-2.30 mg/dL] 1.90 mg/dL (11/12/23 7:33 AM) 1.80 mg/dL *LOW* (11/11/23 2:21 AM) Phosphorus [2.6-4.7 mg/dL] 2.2 mg/dL *LOW* (11/11/23 2:21 AM) Influenza A [Negative] Negative (11/10/23 3:49 PM) Influenza B [Negative] Negative (11/10/23 3:49 PM) C Reactive Protein [0.0-0.9 mg/dL] 2.0 mg/dL *HI* (11/10/23 3:49 PM) Ur Protein Negative (11/10/23 6:09 PM) pH Art 7.20 (11/11/23 1:12 PM) 7.25 (11/11/23 8:03 AM) Lactic Acid [0.4-2.0 mmol/L] 0.8 mmol/L (11/10/23 3:49 PM) Site for ABG Draw rbrachial (11/12/23 10:43 AM) RB (11/11/23 7:30 PM) l radial (11/11/23 1:12 PM) l radial (11/11/23 8:03 AM) RR (11/10/23 8:41 PM) rr (11/10/23 6:40 PM) RR (11/10/23 4:42 PM) Art Italo's Test Positive *NA* (11/12/23 10:43 AM) N/A *NA* (11/11/23 7:30 PM) Positive *NA* (11/11/23 1:07 PM) Positive *NA* (11/11/23 7:43 AM) Positive *NA* (11/10/23 8:36 PM) Positive *NA* (11/10/23 6:39 PM) Positive *NA* (11/10/23 4:42 PM) Art Analyzed By francisco *NA* (11/12/23 10:43 AM) [id number] *NA* (11/11/23 7:30 PM) ldacus *NA* (11/11/23 1:07 PM) ldacus *NA* (11/11/23 7:43 AM) [id number] *NA* (11/10/23 8:36 PM) [id number] *NA* (11/10/23 6:39 PM) rlstarne *NA* (11/10/23 4:42 PM) Art Analyzer [id number] *NA* (11/12/23 10:43 AM) [id number] *NA* (11/11/23 7:30 PM) 72055 *NA* (11/11/23 1:07 PM) [id number] *NA* (11/11/23 7:43 AM) [id number] *NA* (11/10/23 8:36 PM) 66032 *NA* (11/10/23 6:39 PM) Art Drawn By francisco *NA* (11/12/23 10:43 AM) [id number] *NA* (11/11/23 7:30 PM) ldacus *NA* (11/11/23 1:07 PM) ldacus *NA* (11/11/23 7:43 AM) [id number] *NA* (11/10/23 8:36 PM) [id number] *NA* (11/10/23 6:39 PM) rlstarne *NA* (11/10/23 4:42 PM) Art Drawn Location 7 *NA* (11/12/23 10:43 AM) 2027 *NA* (11/11/23 7:30 PM) pcu 2027 *NA* (11/11/23 1:07 PM) pcu 7 *NA* (11/11/23 7:43 AM) ED7 *NA* (11/10/23 8:36 PM) ed7 *NA* (11/10/23 6:39 PM) ed7 *NA* (11/10/23 4:42 PM) Art EPAP 5 *NA* (11/11/23 7:30 PM) 4 *NA* (11/10/23 8:36 PM) Art FiO2 28 *NA* (11/12/23 10:43 AM) 30 *NA* (11/11/23 7:30 PM) 35 *NA* (11/10/23 8:36 PM) Art IPAP 18 *NA* (11/11/23 7:30 PM) 14 *NA* (11/10/23 8:36 PM) Art Liter Flow 2 *NA* (11/12/23 10:43 AM) 3 *NA* (11/10/23 6:39 PM) 3 *NA* (11/10/23 4:42 PM) Art Mode ST *NA* (11/11/23 7:30 PM) Art O2 Device nc *NA* (11/12/23 10:43 AM) BIPAP *NA* (11/11/23 7:30 PM) BIPAP *NA* (11/10/23 8:36 PM) nc *NA* (11/10/23 6:39 PM) nasal cannula *NA* (11/10/23 4:42 PM) Art O2 Sat [94-100] 95 (11/12/23 10:43 AM) 96 (11/11/23 7:30 PM) 74 5 *CRIT* (11/11/23 1:07 PM) 83 *LOW* (11/11/23 7:43 AM) 94 (11/10/23 8:36 PM) 97 (11/10/23 6:39 PM) 95 (11/10/23 4:42 PM) Art Sample Site R Brachial *NA* (11/12/23 10:43 AM) R Brachial *NA* (11/11/23 7:30 PM) L Radial *NA* (11/11/23 1:07 PM) L Radial *NA* (11/11/23 7:43 AM) R Radial *NA* (11/10/23 8:36 PM) R Radial *NA* (11/10/23 6:39 PM) R Radial *NA* (11/10/23 4:42 PM) Art Set Rate 20 *NA* (11/11/23 7:30 PM) 18 *NA* (11/10/23 8:36 PM) Carbon Dioxide [22-33 mmol/L] 28 mmol/L (11/12/23 7:33 AM) 29 mmol/L (11/11/23 2:21 AM) 33 mmol/L (11/10/23 3:49 PM) pH DM Arterial [7.34-7.46] 7.35 (11/12/23 10:43 AM) 7.31 *LOW* (11/11/23 7:30 PM) 7.20 6 *CRIT* (11/11/23 1:07 PM) 7.25 *LOW* (11/11/23 7:43 AM) 7.22 7 *CRIT* (11/10/23 8:36 PM) 7.18 *CRIT* (11/10/23 6:39 PM) 7.19 *CRIT* (11/10/23 4:42 PM) pCO2 DM Arterial [34.9-45.1 mmHg] 41.2 mmHg (11/12/23 10:43 AM) 51.1 mmHg *HI* (11/11/23 7:30 PM) 61.0 mmHg 8 *CRIT* (11/11/23 1:07 PM) 58.8 mmHg 9 *CRIT* (11/11/23 7:43 AM) 54.8 mmHg *HI* (11/10/23 8:36 PM) 65.9 mmHg *CRIT* (11/10/23 6:39 PM) 58.6 mmHg *CRIT* (11/10/23 4:42 PM) pO2 DM Art [53.90-95.10 mmHg] 82.70 mmHg (11/12/23 10:43 AM) 94.50 mmHg (11/11/23 7:30 PM) 48.00 mmHg *LOW* (11/11/23 1:07 PM) 55.00 mmHg (11/11/23 7:43 AM) 87.20 mmHg (11/10/23 8:36 PM) 115.60 mmHg 10 *CRIT* (11/10/23 6:39 PM) 95.00 mmHg (11/10/23 4:42 PM) HCO3 Calc Arterial [16.9-27.1 mmol/L] 22.6 mmol/L (11/12/23 10:43 AM) 25.2 mmol/L (11/11/23 7:30 PM) 25.0 mmol/L (11/11/23 1:07 PM) 25.6 mmol/L (11/11/23 7:43 AM) 22.1 mmol/L (11/10/23 8:36 PM) 24.3 mmol/L (11/10/23 6:39 PM) 22.0 mmol/L (11/10/23 4:42 PM) Base Excess Calc Arterial [-1.9-2.1] -2.7 *LOW* (11/12/23 10:43 AM) -1.6 (11/11/23 7:30 PM) -5.3 *LOW* (11/11/23 1:07 PM) -2.4 *LOW* (11/11/23 7:43 AM) -6.0 *LOW* (11/10/23 8:36 PM) -5.1 *LOW* (11/10/23 6:39 PM) -6.9 *LOW* (11/10/23 4:42 PM) [id number] IA [Negative] Negative (11/10/23 3:49 PM) PO2 Art. 48 % (11/11/23 1:12 PM) 55 % (11/11/23 8:03 AM) Osmol Calc [281-300 mOsm/kg] 301 mOsm/kg *HI* (11/12/23 7:33 AM) 289 mOsm/kg (11/11/23 2:21 AM) 286 mOsm/kg (11/10/23 3:49 PM) 1Interpretive Data: CKD is defined by the presence of glomerular filtration rate (GFR) <60 mL for>3 months and/or evidence of kidney damage (eg, structural abnormalities, histologic abnormalities, albuminuria, urinary sediment abnormalities, renal tubular disorders, and/or history of kidney tr ansplantation) for >3months. This table provides interpretation of specific eGFR values. Creatinine measurements, and therefore eGFR calculations, are affected by very high or very low muscle mass, muscle injury, a diet very high in meat, hepatic cirrhosis, certain drugs, etc. Stages of CKD: Stage Description GFR mL/min 1 Kidney damage with normal or increased GFR 90 2 Kidney damage with mild decrease in GFR 60 to 89 3 Moderate decrease in GFR 30 to 59 4 Severe decrease in GFR 15 to 29 5 Kidney failure <15 (or dialysis) Note: GFR Normal range >60, equation not validated for ages <18 and >70 and women. 2Interpretive Data: CKD is defined by the presence of glomerular filtration rate (GFR) <60 mL for>3 months and/or evidence of kidney damage (eg, structural abnormalities, histologic abnormalities, albuminuria, urinary sediment abnormalities, renal tubular disorders, and/or history of kidney tr ansplantation) for >3months. This table provides interpretation of specific eGFR values. Creatinine measurements, and therefore eGFR calculations, are affected by very high or very low muscle mass, muscle injury, a diet very high in meat, hepatic cirrhosis, certain drugs, etc. Stages of CKD: Stage Description GFR mL/min 1 Kidney damage with normal or increased GFR 90 2 Kidney damage with mild decrease in GFR 60 to 89 3 Moderate decrease in GFR 30 to 59 4 Severe decrease in GFR 15 to 29 5 Kidney failure <15 (or dialysis) Note: GFR Normal range >60, equation not validated for ages <18 and >70 and women. 3Interpretive Data: CKD is defined by the presence of glomerular filtration rate (GFR) <60 mL for>3 months and/or evidence of kidney damage (eg, structural abnormalities, histologic abnormalities, albuminuria, urinary sediment abnormalities, renal tubular disorders, and/or history of kidney tr ansplantation) for >3months. This table provides interpretation of specific eGFR values. Creatinine measurements, and therefore eGFR calculations, are affected by very high or very low muscle mass, muscle injury, a diet very high in meat, hepatic cirrhosis, certain drugs, etc. Stages of CKD: Stage Description GFR mL/min 1 Kidney damage with normal or increased GFR 90 2 Kidney damage with mild decrease in GFR 60 to 89 3 Moderate decrease in GFR 30 to 59 4 Severe decrease in GFR 15 to 29 5 Kidney failure <15 (or dialysis) Note: GFR Normal range >60, equation not validated for ages <18 and >70 and women. 4Interpretive Data: INR Interpretive Data Thrombotic Disorder Recommended INR Prophylaxis/treatment of: Venous Thrombosis 2.0-3.0 Pulmonary Embolism 2.0-3.0 Prevention of Systemic Embolism from: Tissue Heart Valves 2.0-3.0 Myocardial Infarction 2.0-3.0 (prevent systemic embolism) Valvular Heart Disease 2.0-3.0 Atrial Fibrilation 2.0-3.0 Mechanical Prosthetic Valves 2.5.3.5 5Result Comment: CALLED IN ABG RESULTS TO DR. RODGERS PATIENT IS TO REMAIN ON CPAP CONTINOUSLY 6Result Comment: CALLED DR. RODGERS WITH ABG RESULTS AND PQATIENT IS TO REMAIN ON BIPAP CONTINOUSLY 7Result Comment: DOCTOR NOTIFIED 8Result Comment: CALLED DR. RODGERS WITH ABG RESULTS PATIENT IS REMAIN ON BIPAP CONTINOUSLY 9Result Comment: called dr. rodgers with results pt. to be back on bipap after breakfast 10Result Comment: doctor notified 11Result Comment: Negative results should be considered in the context of a patient's recent exposures, history and the presence of clinical signs and symptoms consistent with COVID-19. 12Interpretive Data: Methodology: [employer] Immunoassay Negative results do not rule out COVID-19 and should not be used as the sole basis for treatment orpatient management decisions, including infection control decisions. Negative results should be considered in the context of a patient's recent exposures,history and presence of clinical signs and symptoms consistent with COVID-19. Orders for Microbiology Reports Name Date Sputum Culture w/Gram Stain Panel (Cultu re Sputum with GS) 11/12/23 Blood Culture 11/10/23 Blood Culture 11/10/23 Microbiology Reports TEST:Sputum Culture w/GS Pnl STATUS:Order in Progress BODY SITE: SOURCE:Sputum COLLECTED DATE/TIME:11/12/23 10:50 AM PRELIMINARY REPORT Normal oral yari at 1 day. STAIN REPORT 10-25 wbc/lpf <10 epithelial cells/lpf Few Yeast TEST:Blood Culture STATUS:Order in Progress BODY SITE:Antecubital L SOURCE:Blood COLLECTED DATE/TIME:11/10/23 3:45 PM PRELIMINARY REPORT No growth at 4 days. TEST:Blood Culture STATUS:Order in Progress BODY SITE:Right Arm SOURCE:Blood COLLECTED DATE/TIME:11/10/23 3:33 PM PRELIMINARY REPORT No growth at 4 days. Radiology Reports * Exam Date Time Procedure Performing Provider Status 11/10/23 4:08 PM XR Chest 1 V Portable Sandra Shaffer Techno I; Auth (Verified) Notes: (XR Chest [address]) Reason For Exam: Cough REPORT EXAM: ONE-VIEW CHEST HISTORY: Cough TECHNIQUE: Single frontal view the chest was obtained. FINDINGS: The heart is normal size. Lungs are clear. The pulmonary vasculature appears normal. Emphysematous changes are seen within the lungs. IMPRESSION: No active cardiopulmonary disease. Final Signed by: ZORAN BETANCOURT MD Signed (Electronic Signature): 11/10/2023 04:17 pm CDT Vital Signs Most recent to oldest [Reference Range]: 1 2 Patient Height 162.56 cm (11/10/23 10:11 PM) 162.56 cm (11/10/23 10:11 PM) Patient Weight (kg) 51.5 kg (11/14/23 5:37 AM) [place] Body Weight Calculated 59.2 kg (11/10/23 10:11 PM) BSA Measured 0 m2 (11/14/23 5:37 AM) Body Mass Index Measured 17.56 kg/m2 (11/10/23 10:11 PM) 17.56 kg/m2 (11/10/23 10:11 PM) Blood Pressure [95-120/59-81 mmHg] 158/8 5mmHg *HI* (11/14/23 1:00 PM) Mean Arterial Pressure, Cuff 104 mmHg *>HHI* (11/14/23 12:18 PM) Temperature Axillary [96.6-99.6 DegF] 97 .9 DegF (11/13/23 4:00 AM) Temperature Oral [96.6-99.6 DegF] 96.0 D egF *LOW* (11/14/23 12:18 PM) Temperature Temporal Artery [97.6-100.6 DegF] 98 DegF (11/13/23 7:00 AM) Oxygen Flow Rate 3 L/min (11/13/23 7:25 AM) FIO2 21 % (11/14/23 8:00 AM) SpO2 98 % (11/14/23 12:18 PM) Apical Heart Rate [59-101 bpm] 95 bpm (11/14/23 12:18 PM) Peripheral Pulse Rate [60-100 bpm] 94 bp m (11/13/23 7:38 PM) Heart Rate Monitored [60-100 bpm] 96 bpm (11/14/23 11:42 AM) Respiratory Rate [10-21 br/min] 18 br/mi n (11/14/23 12:18 PM) Advance Directives No (11/10/23 10:11 PM) Pt requests addtl advance directive info Yes (11/10/23 10:11 PM) Social History Social History Type Response Smoking Status Tobacco use status 3 0 days prior to admission 5 or more cigarettes avg volume per day (=>1/4 pack);10 or more cigarettes (1/2 pack or more)/day in last 30 days; Type: Cigarettes entered on: 11/10/23 Sex Male Hospital Discharge Instructions Patient Education 11/14/2023 12:23:11 Chronic Obstructive Pulmonary Disease, [id number] Chronic Obstructive Pulmonary Disease Chronic obstructive pulmonary disease (COPD) is a long-term (chronic) lung problem. When you have COPD, it is hard for air to get in and out of your lungs. Usually the condition gets worse over time, and your lungs will never return to normal. There are things you can do to keep yourself as healthy as possible. What are the causes? Smoking. This is the most common cause. ??? Certain genes passed from parent to child (inherited). What increases the risk? Being exposed to secondhand smoke from cigarettes, pipes, or cigars. ??? Being exposed to chemicals and other irritants, such as fumes and dust in the work environment. ??? Having chronic lung conditions or infections. What are the signs or symptoms? Shortness of breath, especially during physical activity. ??? A long-term cough with a large amount of thick mucus. Sometimes, the cough may not have any mucus (dry cough). ??? Wheezing. ??? Breathing quickly. ??? Skin that looks kahn or blue, especially in the fingers, toes, or lips. ??? Feeling tired (fatigue). ??? Weight loss. ??? Chest tightness. ??? Having infections often. ??? Episodes when breathing symptoms become much worse (exacerbations). At the later stages of this disease, you may have swelling in the ankles, feet, or legs. How is this treated? Taking medicines. ??? Quitting smoking, if you smoke. ??? Rehabilitation. This includes steps to make your body work better. It may involve a team of specialists. ??? Doing exercises. ??? Making changes to your diet. ??? Using oxygen. ??? Lung surgery. ??? Lung transplant. ??? Comfort measures (palliative care). Follow these instructions at home: Medicines ??? Take wbwk-ytg-xlsvaee and prescription medicines only as told by your doctor. ??? Talk to your doctor before taking any cough or allergy medicines. You may need to avoid medicines that cause your lungs to be dry. Lifestyle ??? If you smoke, stop smoking. Smoking makes the problem worse. ??? Do not smoke or use any products that contain nicotine or tobacco. If you need help quitting, ask your doctor. ??? Avoid being around things that make your breathing worse. This may include smoke, chemicals, and fumes. ??? Stay active, but remember to rest as well. ??? Learn and use tips on how to manage stress and control your breathing. ??? Make sure you get enough sleep. Most adults need at least 7 hours of sleep every night. ??? Eat healthy foods. Eat smaller meals more often. Rest before meals. Controlled breathing Learn and use tips on how to control your breathing as told by your doctor. Try: ??? Breathing in (inhaling) through your nose for 1 second. Then, pucker your lips and breath out (exhale) through your lips for 2 seconds. ??? Putting one hand on your belly (abdomen). Breathe in slowly through your nose for 1 second. Your hand on your belly should move out. Pucker your lips and breathe out slowly through your lips. Your hand on your belly should move in as you breathe out. Controlled coughing Learn and use controlled coughing to clear mucus from your lungs. Follow these steps: 1. Lean your head a little forward. 2. Breathe in deeply. 3. Try to hold your breath for 3 seconds. 4. Keep your mouth slightly open while coughing 2 times. 5. Spit any mucus out into a tissue. 6. Rest and do the steps again 1 or 2 times as needed. General instructions ??? Make sure you get all the shots (vaccines) that your doctor recommends. Ask your doctor about aflu shot and a pneumonia shot. ??? Use oxygen therapy and pulmonary rehabilitation if told by your doctor. If you need home oxygentherapy, ask your doctor if you should buy a tool to measure your oxygen level (oximeter). ??? Make a COPD action plan with your doctor. This helps you to know what to do if you feel worse than usual. ??? Manage any other conditions you have as told by your doctor. ??? Avoid going outside when it is very hot, cold, or humid. ??? Avoid people who have a sickness you can catch (contagious). ??? Keep all follow-up visits. Contact a doctor if: ??? You cough up more mucus than usual. ??? There is a change in the color or thickness of the mucus. ??? It is harder to breathe than usual. ??? Your breathing is faster than usual. ??? You have trouble sleeping. ??? You need to use your medicines more often than usual. ??? You have trouble doing your normal activities such as getting dressed or walking around the house. Get help right away if: ??? You have shortness of breath while resting. ??? You have shortness of breath that stops you from: ??? Being able to talk. ??? Doing normal activities. ??? Your chest hurts for longer than 5 minutes. ??? Your skin color is more blue than usual. ??? Your pulse oximeter shows that you have low oxygen for longer than 5 minutes. ??? You have a fever. ??? You feel too tired to breathe normally. These symptoms may represent a serious problem that is an emergency. Do not wait to see if the symptoms will go away. Get medical help right away. Call your local emergency services (911 in the [place] Do not drive yourself to the hospital. Summary ??? Chronic obstructive pulmonary disease (COPD) is a long-term lung problem. ??? The way your lungs work will never return to normal. Usually the condition gets worse over time. There are things you can do to keep yourself as healthy as possible. ??? Take wmvf-lck-mvmhmzt and prescription medicines only as told by your doctor. ??? If you smoke, stop. Smoking makes the problem worse. This information is not intended to replace advice given to you by your health care provider. Make sure you discuss any questions you have with your health care provider. Document Revised: 05/26/2021 Document Reviewed: 05/26/2021 [employer] Patient Education ?? 2022 [facility] Directions. 11/14/2023 12:23:04 Chronic Obstructive Pulmonary Disease Exacerbation, Lpcj-uj-Gwtn Chronic Obstructive Pulmonary Disease Exacerbation Chronic obstructive pulmonary disease (COPD) is a long-term (chronic) lung problem. In COPD, the flow of air from the lungs is limited. COPD exacerbations are times that breathing gets worse and you need more than your normal treatment. Without treatment, they can be life-threatening. If they happen often, your lungs can become more damaged. What are the causes? Having infections that affect your airways and lungs. ??? Being exposed to: ??? Smoke. ??? Air pollution. ??? Chemical fumes. ??? Dust. ??? Things that can cause an allergic reaction (allergens). ??? Not taking your usual COPD medicines as told. ??? Having medical problems already, such as heart failure or infections not involving the lungs. In many cases, the cause is not known. What increases the risk? Smoking. ??? Being an older adult. ??? Having frequent prior COPD exacerbations. What are the signs or symptoms? Increased coughing. ??? Increased mucus from your lungs. ??? Increased wheezing. ??? Increased shortness of breath. ??? Fast breathing and finding it hard to breathe. ??? Chest tightness. ??? Less energy than usual. ??? Sleep disruption from symptoms. ??? Confusion. ??? Increased sleepiness. Often, these symptoms happen or get worse even with the use of medicines. How is this treated? Treatment for this condition depends on how bad it is and the cause of the symptoms. You may need to stay in the hospital for treatment. Treatment may include: ??? Taking medicines. ??? Using oxygen. ??? Being treated with different ways to clear your airway, such as using a mask to deliver oxygen. Follow these instructions at home: Medicines ??? Take lald-ghb-nwsfgan and prescription medicines only as told by your doctor. ??? Use all inhaled medicines the correct way. ??? If you were prescribed an antibiotic or steroid medicine, take it as told by your doctor. Do not stop taking it even if you start to feel better. Lifestyle ??? Do not smoke or use any products that contain nicotine or tobacco. If you need help quitting, ask your doctor. ??? Eat healthy foods. ??? Exercise regularly. ??? Get enough sleep. Most adults need 7 or more hours per night. ??? Avoid tobacco smoke and other things that can bother your lungs. ??? Several times a day, wash your hands with soap and water for at least 20 seconds. If you cannotuse soap and water, use hand wind science and planning. This may help keep you from getting an infection. ??? During flu season, avoid areas that are crowded with people. General instructions ??? Drink enough fluid to keep your pee (urine) pale yellow. Do not do this if your doctor has toldyou not to. ??? Use a cool mist machine (vaporizer). ??? If you use oxygen or a machine that turns medicine into a mist (nebulizer), continue to use it as told. ??? Keep all follow-up visits. How is this prevented? Keep up with shots (vaccinations) as told by your doctor. Be sure to get a yearly flu (influenza) shot. ??? If you smoke, quit smoking. Smoking makes the problem worse. ??? Follow all instructions for rehabilitation. These are steps you can take to make your body workbetter. ??? Work with your doctor to develop and follow an action plan. This tells you what steps to take when you experience certain symptoms. Contact a doctor if: ??? Your COPD symptoms get worse than normal. Get help right away if: ??? You are short of breath and it gets worse, even when you are resting. ??? You have trouble talking. ??? You have chest pain. ??? You cough up blood. ??? You have a fever. ??? You keep vomiting. ??? You feel weak or you pass out (faint). ??? You feel confused. ??? You are not able to sleep because of your symptoms. ??? You have trouble doing daily activities. These symptoms may be an emergency. Get help right away. Call your local emergency services (911 int [place] ??? Do not wait to see if the symptoms will go away. ??? Do not drive yourself to the hospital. Summary ??? COPD exacerbations are times that breathing gets worse and you need more treatment than normal. ??? COPD exacerbations can be very serious and may cause your lungs to become more damaged. ??? Do not smoke. If you need help quitting, ask your doctor. ??? Stay up to date on your shots. Get a flu shot every year. This information is not intended to replace advice given to you by your health care provider. Make sure you discuss any questions you have with your health care provider. Document Revised: 06/10/2021 Document Reviewed: 05/26/2021 [employer] Patient Education ?? 2022 [facility] Directions. Follow Up Care 11/10/2023 15:31:00 With:pcp in 3 days. Address:Unknown When: Unknown Progress note * PRAFUL TONY MD: PERFORM Event Display: Progress Note Authored Date: [id number] Subjective Patient is feeling better. ??Saturating 95% on??1 L nasal cannula.?? Still having wheezes and??rhonchi. ??Better shortness of breath. Objective Vitals & Measurements T:??98?F??(Temporal Artery)?? TMIN:??97.9?F??(Axillary)?? TMAX:??98.9?F??(Oral)?? HR:??116??(Monitored)?? RR:??20?? BP:??120/59?? BP:??153/75(BMDI)?? SpO2:??98%?? WT:??51.3??kg??(Dosing)?? Physical Exam General - thin make,??NAD, in bed comfortably HEENT- NCAT, EOMI, PERRL, oral mucous membranes moist Cardiovascular - tachycardic no m/r/g, no lower extremity edema, distal pulses intact Respiratory - diminished breath sounds bilaterally, no use of accessory muscles. saturating well onBiPAP Skin - No rashes, skin warm and dry, no erythematous areas Abdomen - Normal bowel sounds, abdomen soft, nontender MSK - JEANNIE bilaterally Neurological - Alert and oriented x 3, cranial nerves grossly intact Psych: normal mood and speech Lab Results All Labs [Within the Last 24 Hours]?? No qualifying data available. Diagnostic Results Diagnostic Radiology [Within the Last 24 Hours]?? No qualifying data available. Magnetic Resonance Imaging [Within the Last 24 Hours]?? No qualifying data available. Computed Tomography [Within the Last 24 Hours]?? No qualifying data available. recent EKG?? No qualifying data available. Ultrasound [Within the Last 24 Hours]?? No qualifying data available. Nuclear Medicine [Within the Last 24 Hours]?? No qualifying data available. Medications Inpatient DuoNeb, 3 mL, NEB, RTQ4H Lovenox, 40 mg= 0.4 mL, Subcutaneous, q24H methylPREDNISolone (SOLU-Medrol) PF, 40 mg= 1 mL, IV, q8H NS 1,000 mL, 1000 mL, IV pantoprazole, 40 mg= 1 tab(s), Oral, Daily AC Breakfast Pulmicort Respules, 0.5 mg= 2 mL, NEB, RTBID Rocephin sterile water, 1 mL, IV, As Indicated Tylenol, 650 mg= 2 tab(s), Oral, q4H, PRN Zithromax Zofran, 4 mg= 2 mL, IV Push, q8H, PRN Assessment/Plan COPD with exacerbation (Chronic obstructive pulmonary disease with (acute) exacerbation, J44.1) Hypercapnia (Other abnormalities of breathing, R06.89) Shortness of breath (Shortness of breath, [id number]) Orders: pantoprazole, 40 mg, Tab-DR, Oral, Daily AC Breakfast, NOW, First Dose: 11/12/23 13:46:00 CDT This is a 68 years old male with??past medical history of COPD??who presented to the emergency roomat 2039.?? Shortness of breath and chest pain.?? He states he has had cough productive of white/clear sputum, progressive shortness of breath??but denies any fevers, chills, chest pain, nausea, vomiting, diarrhea, constipation.?On arrival to emergency room??initial temperature was??98??heart rate was 110??blood pressure 113/91 respiratory rate 30??O2 saturation??95% on 3 L.?? Further workup showed??white blood cell count of 7.8,??BNP 32,??flu and COVID antigen??negative, lactic acid negative.?? ABG showed pH 7. 19??pCO2 58 pO2 95??HCO3 22. ??Chest x-ray was negative for acute findings.?? He was started on BiPAP??continuous, given??IV ceftriaxone, azithromycin, normal saline, DuoNebs. ??He is being admitted to the inpatient hospital service for further management. ?? 1.??Acute hypoxic hypercapnic respiratory failure: Likely due to COPD exacerbation. -??ABG showing pH 7. 19??pCO2 58 pO2 95??HCO3 22. -??Adjust BiPAP to maintain saturation above 92%.?? -??Repeat ABG with pH 7.20??pCO2 70 pO2 115??HCO3 24.3.-->??pH 7.31 -Repeat ABG :??Normal -?Duo-Nebs, Pulmicort, Solu-Medrol. ??IV ceftriaxone azithromycin??continued. ??Telemetry monitoring. -Anticipate discharge in a.m. ?? 2. ??COPD exacerbation: DuoNeb, Pulmicort, Solu-Medrol q8hr, antibiotics above ?? 3.?? Tobacco abuse: Counseled on cessation, declining nicotine patch at this time ?? DVT ppx:Lovenox??subcu ?? PCU-->??telemetry Inpatient High risk of deterioration Electronically Signed on 11/13/2023 11:01 CDT PRAFUL TONY MD * PRAFUL TONY MD: PERFORM Event Display: Progress Note Authored Date: [id number] Subjective Patient feels better. ??Off BiPAP this morning.?? Saturating 98% on 2 L nasal cannula.?? Still havescattered wheezes??and shortness of breath. Objective Vitals & Measurements T:??97.8?F??(Axillary)?? TMIN:??97.3?F??(Temporal Artery)?? TMAX:??98.2?F??(Temporal Artery)?? HR:??121??(Peripheral)?? HR:??119??(Monitored)?? RR:??20?? BP:??140/67(BMDI)?? SpO2:??99%?? Physical Exam General - thin make,??NAD, in bed comfortably HEENT- NCAT, EOMI, PERRL, oral mucous membranes moist Cardiovascular - tachycardic no m/r/g, no lower extremity edema, distal pulses intact Respiratory - diminished breath sounds bilaterally, no use of accessory muscles. saturating well onBiPAP Skin - No rashes, skin warm and dry, no erythematous areas Abdomen - Normal bowel sounds, abdomen soft, nontender MSK - JEANNIE bilaterally Neurological - Alert and oriented x 3, cranial nerves grossly intact Psych: normal mood and speech Lab Results All Labs [Within the Last 24 Hours] Site for ABG Draw: RB (11/11/23:30:00) Arterial Puncture Charge: Yes (11/11/23:30:) Italo's Test: Positive (11/11/23:30:) pH DM Arterial:??7.31??Low (11/11/23) pH Art: 7.2 (11/11/23:12:) pCO2 DM Arterial:??51.1 mmHg??High (11/11/23::) pO2 DM Art: 94.5 mmHg (11/11/23::) HCO3 Calc Arterial: 25.2 mmol/L (11/11/23:30:) Base Excess Calc Arterial: -1.6 (11/11/23:30:00) PO2 Art.: 48 % (11/11/23::) Art Italo's Test: N/A (11/11/2330:) Art Analyzed By: [email or web address] (11/11/2330:) Art Analyzer: [id number] (11/11/23:30:00) Art Drawn By: [email or web address] (11/11/2330:) Art Drawn Location: 2026 (11/11/23:30:00) Art EPAP: 5 (11/11/23:30:00) Art FiO2: 30 (11/11/23:30:00) Art IPAP: 18 (11/11/23:30:00) Art Mode: ST (11/11/23:30:00) Art O2 Device: BIPAP (11/11/23:30:00) Art O2 Sat: 96 (11/11/23:30:00) Art Sample Site: Right Brachial (04/12/24 19:30:00) Art Set Rate: 20 (11/11/23 19:30:00) WBC: 8.7 K/uL (11/12/23 07:33:00) RBC:??4.41??Low (11/12/23 07:33:00) Hgb:??13.3 g/dL??Low (11/12/23 07:33:00) HCT: 41.2 % (11/12/23 07:33:00) MCH: 30.1 pg (11/12/23 07:33:00) MCHC: 32.2 (11/12/23 07:33:00) MCV: 93.6 fL (11/12/23 07:33:00) Plt Cnt: 281 x10^3/mcL (11/12/23 07:33:00) MPV: 9 fL (11/12/23 07:33:00) RDW: 14.2 % (11/12/23 07:33:00) Neutrophils% Auto:??92.3 %??High (11/12/23 07:33:00) Lymphocytes% Auto:??6.4 %??Low (11/12/23 07:33:00) Monocytes% Auto:??1.2 %??Low (11/12/23 07:33:00) Basophils% Auto:??0.1 %??Low (11/12/23 07:33:00) Eosinophils% Auto:??0 %??Low (11/12/23 07:33:00) Neutrophils# Auto:??8??High (11/12/23 07:33:00) Lymphocytes# Auto:??0.6??Low (11/12/23 07:33:00) Monocytes# Auto:??0.1??Low (11/12/23 07:33:00) Basophils# Auto:??0??Low (11/12/23 07:33:00) Eos# Auto:??0??Low (11/12/23 07:33:00) nRBC% Auto: 0 % (11/12/23 07:33:00) nRBC# Auto: 0 /100 WBC (11/12/23 07:33:00) Sodium: 147 mmol/L (11/12/23 07:33:00) Potassium: 4.5 mEq/L (11/12/23 07:33:00) Chloride:??110 mmol/L??High (11/12/23 07:33:00) Carbon Dioxide: 28 mmol/L (11/12/23 07:33:00) BUN:??21 mg/dL??High (11/12/23 07:33:00) Creatinine: 1.1 mg/dL (11/12/23 07:33:00) eGFR:??74 mL/min/1.73m?Low (11/12/23 07:33:00) Glucose:??199 mg/dL??High (11/12/23 07:33:00) Calcium: 8.9 mg/dL (11/12/23 07:33:00) Anion Gap: 9 mmol/L (11/12/23 07:33:00) Osmol Calc:??301 mOsm/kg??High (11/12/23 07:33:00) BUN/Crea Ratio: 19.09 (11/12/23 07:33:00) Albumin:??3.1 g/dL??Low (11/12/23 07:33:00) Alkaline Phosphatase: 95 U/L (11/12/23 07:33:00) ALT:??24 U/L??Low (11/12/23 07:33:00) AST:??15 U/L??Low (11/12/23 07:33:00) Bili Total: 0.1 mg/dL (11/12/23 07:33:00) Prot Total: 6.7 g/dL (11/12/23 07:33:00) Globulin: 4 (11/12/23 07:33:00) Albumin/Globulin Ratio:??0.86??Low (11/12/23 07:33:00) Magnesium: 1.9 mg/dL (11/12/23 07:33:00) Ca Corrected: 9.6 mg/dL (11/12/23 07:33:00) Diagnostic Results Diagnostic Radiology [Within the Last 24 Hours]?? No qualifying data available. Magnetic Resonance Imaging [Within the Last 24 Hours]?? No qualifying data available. Computed Tomography [Within the Last 24 Hours]?? No qualifying data available. recent EKG?? No qualifying data available. Ultrasound [Within the Last 24 Hours]?? No qualifying data available. Nuclear Medicine [Within the Last 24 Hours]?? No qualifying data available. Medications Inpatient DuoNeb, 3 mL, NEB, RTQ4H Lovenox, 40 mg= 0.4 mL, Subcutaneous, q24H methylPREDNISolone (SOLU-Medrol) PF, 40 mg= 1 mL, IV, q8H NS 1,000 mL, 1000 mL, IV Pulmicort Respules, 0.5 mg= 2 mL, NEB, RTBID Rocephin sterile water, 1 mL, IV, As Indicated Tylenol, 650 mg= 2 tab(s), Oral, q4H, PRN Zithromax Zofran, 4 mg= 2 mL, IV Push, q8H, PRN Assessment/Plan COPD with exacerbation (Chronic obstructive pulmonary disease with (acute) exacerbation, J44.1) Hypercapnia (Other abnormalities of breathing, R06.89) Shortness of breath (Shortness of breath, [id number]) Orders: ipratropium-albuterol, 3 mL, Soln-Inh, NEB, RTQ4H, Routine, First Dose: 11/11/23 15:00:00 CDT methylPREDNISolone, 40 mg, Powder-Inj, IV, q8H, Routine, First Dose: 11/11/23 14:00:00 CDT Blood Gas w/O2 Sat DM Art POC male with past medical history of COPD??who presented to the emergency room at 2039.?? Shortness ofbreath and chest pain.?? He states he has had cough productive of white/clear sputum, progressive shortness of breath??but denies any fevers, chills, chest pain, nausea, vomiting, diarrhea, constipation.?On arrival to emergency room??initial temperature was??98??heart rate was 110??blood pressure 113/91 respiratory rate 30??O2 saturation??95% on 3 L.?? Further workup showed??white blood cell count of 7.8,??BNP 32,??flu and COVID antigen??negative, lactic acid negative.?? ABG showed pH 7. 19??pCO2 58 pO2 95??HCO3 22. ??Chest x-ray was negative for acute findings.?? He was started on BiPAP??continuous, given??IV ceftriaxone, azithromycin, normal saline, DuoNebs. ??He is being admitted to the inpatient hospital service for further management. ?? 1.?? Acute hypoxic hypercapnic respiratory failure: Likely due to COPD exacerbation. -??ABG showing pH 7. 19??pCO2 58 pO2 95??HCO3 22. -??Adjust BiPAP to maintain saturation above 92%.?? -??Repeat ABG with pH 7.20??pCO2 70 pO2 115??HCO3 24.3.-->??pH 7.31 -Repeat ABG this morning. -?Duo-Nebs, Pulmicort, Solu-Medrol. ??IV ceftriaxone azithromycin??continued. ??Telemetry monitoring. ?? 2. ??COPD exacerbation: DuoNeb, Pulmicort, Solu-Medrol q8hr, antibiotics above ?? 3.?? Tobacco abuse: Counseled on cessation, declining nicotine patch at this time ?? DVT ppx:Lovenox??subcu ?? PCU Inpatient Telemetry High risk of deterioration Electronically Signed on 11/12/2023 09:34 CDT PRAFUL TONY MD * PRAFUL TONY MD: PERFORM Event Display: Progress Note Authored Date: [id number] Subjective Patient continues to have shortness of breath and wheezes.?? on BIPAP.?? Objective Vitals & Measurements T:??98.0?F??(Temporal Artery)?? TMIN:??97.8?F??(Temporal Artery)?? TMAX:??98.0?F??(Temporal Artery)?? HR:??82??(Peripheral)?? HR:??79??(Monitored)?? RR:??14?? BP:??113/91?? BP:??116/65(BMDI)?? SpO2:??100%?? HT:??162.56??cm?? HT:??162.56??cm?? WT:??48??kg??(Dosing)?? BMI:??17.56?? BMI:??17.56?? Physical Exam General - thin make,??NAD, in bed comfortably HEENT- NCAT, EOMI, PERRL, oral mucous membranes moist Cardiovascular - tachycardic no m/r/g, no lower extremity edema, distal pulses intact Respiratory - diminished breath sounds bilaterally, no use of accessory muscles. saturating well onBiPAP Skin - No rashes, skin warm and dry, no erythematous areas Abdomen - Normal bowel sounds, abdomen soft, nontender MSK - JEANNIE bilaterally Neurological - Alert and oriented x 3, cranial nerves grossly intact Psych: normal mood and speech Lab Results All Labs [Within the Last 24 Hours] Site for ABG Draw: l radial (11/11/23 13:12:00) Arterial Puncture Charge: Yes (11/11/23 13:12:00) Italo's Test: Positive (11/11/23 13:12:00) pH DM Arterial:??7.2??Critical (11/11/23 13:07:00) pH Art: 7.2 (11/11/23 13:12:00) pCO2 DM Arterial:??61 mmHg??Critical (11/11/23 13:07:00) pO2 DM Art:??48 mmHg??Low (11/11/23 13:07:00) HCO3 Calc Arterial: 25 mmol/L (11/11/23 13:07:00) Base Excess Calc Arterial:??-5.3??Low (11/11/23 13:07:00) PO2 Art.: 48 % (11/11/23 13:12:00) Art Italo's Test: Posi (11/11/23 13:07:00) Art Analyzed By: [email or web address] (11/11/23 13:07:00) Art Analyzer: [id number] (11/11/23 13:07:00) Art Drawn By: [email or web address] (11/11/23 13:07:00) Art Drawn Location: [facility] 2026 (11/11/23 13:07:00) Art EPAP: 4 (11/10/23 20:36:00) Art FiO2: 35 (11/10/23 20:36:00) Art IPAP: 14 (11/10/23 20:36:00) Art Liter Flow: 3 (11/10/23 18:39:00) Art O2 Device: BIPAP (11/10/23 20:36:00) Art O2 Sat:??74??Critical (11/11/23 13:07:00) Art Sample Site: Left Radial (11/11/23 13:07:00) Art Set Rate: 18 (11/10/23 20:36:00) WBC:??4.1 K/uL??Low (11/11/23 02:21:00) RBC:??4.11??Low (11/11/23 02:21:00) Hgb:??12.6 g/dL??Low (11/11/23 02:21:00) HCT:??38.2 %??Low (11/11/23 02:21:00) MCH: 30.7 pg (11/11/23 02:21:00) MCHC: 33.1 (11/11/23 02:21:00) MCV: 92.9 fL (11/11/23 02:21:00) Plt Cnt: 239 x10^3/mcL (11/11/23 02:21:00) MPV: 8.6 fL (11/11/23 02:21:00) RDW: 13.7 % (11/11/23 02:21:00) Neutrophils% Auto:??88.3 %??High (11/11/23 02:21:00) Lymphocytes% Auto:??9.2 %??Low (11/11/23 02:21:00) Monocytes% Auto:??2.4 %??Low (11/11/23 02:21:00) Basophils% Auto:??0.1 %??Low (11/11/23 02:21:00) Eosinophils% Auto:??0 %??Low (11/11/23 02:21:00) Neutrophils# Auto: 3.6 (11/11/23 02:21:00) Lymphocytes# Auto:??0.4??Low (11/11/23 02:21:00) Monocytes# Auto:??0.1??Low (11/11/23 02:21:00) Basophils# Auto:??0??Low (11/11/23 02:21:00) Eos# Auto:??0??Low (11/11/23 02:21:00) nRBC% Auto: 0 % (11/11/23 02:21:00) nRBC# Auto: 0 /100 WBC (11/11/23 02:21:00) PT: 10.6 second(s) (11/10/23 15:49:00) INR: 0.9 (11/10/23 15:49:00) Ur Color: Yellow (11/10/23 18:09:00) Ur Appearance: Clear (11/10/23 18:09:00) Ur Specific [place]: 1.015 (11/10/23 18:09:00) Ur pH: 5.0 (11/10/23 18:09:00) Ur Protein: NEGA (11/10/23 18:09:00) Ur Glucose: NEGA (11/10/23 18:09:00) Ur Ketone: NEGA (11/10/23 18:09:00) Ur Bili: NEGA (11/10/23 18:09:00) Ur Blood: NEGA (11/10/23 18:09:00) Ur Nitrite: NEGA (11/10/23 18:09:00) Ur Urobilinogen: 0.2 (11/10/23 18:09:00) Ur Leukocyte Esterase: NEGA (11/10/23 18:09:00) Ur Collection Source: U Clean Catch (11/10/23 18:09:00) Dipstick Type?: Auto (11/10/23 18:09:00) Reflex Microscopic Type?: Not Reqd (11/10/23 18:09:00) Reflex Urine Culture?: No (11/10/23 18:09:00) Sodium: 143 mmol/L (11/11/23 02:21:00) Potassium: 5 mEq/L (11/11/23 02:21:00) Chloride: 108 mmol/L (11/11/23 02:21:00) Carbon Dioxide: 29 mmol/L (11/11/23 02:21:00) BUN: 13 mg/dL (11/11/23 02:21:00) Creatinine: 1 mg/dL (11/11/23 02:21:00) eGFR:??87 mL/min/1.73m?Low (11/11/23 02:21:00) Glucose:??173 mg/dL??High (11/11/23 02:21:00) Calcium:??8.4 mg/dL??Low (11/11/23 02:21:00) Anion Gap: 6 mmol/L (11/11/23 02:21:00) Osmol Ca mOsm/kg (11/11/23 02:21:00) BUN/Crea Ratio: 13 (11/11/23 02:21:00) Albumin:??3.5 g/dL??Low (11/10/23 15:49:00) Alkaline Phosphatase: 107 U/L (11/10/23 15:49:00) ALT:??15 U/L??Low (11/10/23 15:49:00) AST:??14 U/L??Low (11/10/23 15:49:00) Bili Total: 0.2 mg/dL (11/10/23 15:49:00) Phosphorus:??2.2 mg/dL??Low (11/11/23 02:21:00) Prot Total: 7.4 g/dL (11/10/23 15:49:00) Globulin: 4 (11/10/23 15:49:00) Albumin/Globulin Ratio:??0.9??Low (11/10/23 15:49:00) B Type Natriuretic Peptide: 32 pg/mL (11/10/23 15:49:00) Magnesium:??1.8 mg/dL??Low (11/11/23 02:21:00) Ca Corrected: 9 mg/dL (11/10/23 15:49:00) Lactic Acid: 0.8 mmol/L (11/10/23 15:49:00) C Reactive Protein:??2 mg/dL??High (11/10/23 15:49:00) Influenza A: Negative..... (11/10/23 15:49:00) Influenza B: Negative..... (11/10/23 15:49:00) [id number]: Negative..... (11/10/23 15:49:00) Kit Lot Exp: 06/17/24 (11/10/23 15:49:00) Kit Lot Exp: 06/17/24 (11/10/23 15:49:00) Kit Lot Number: 06/17/2024 (11/10/23 15:49:00) Kit Lot Number: [id number] (11/10/23 15:49:00) QCI 1: Pass (11/10/23 15:49:00) QCI 1: Pass (11/10/23 15:49:00) QCI 2: Pass (11/10/23 15:49:00) QCI 2: Pass (11/10/23 15:49:00) First test?: No (11/10/23 15:49:00) Employed in healthcare?: No (11/10/23 15:49:00) Symptomatic as defined by CDC?: Yes (11/10/23 15:49:00) Date of Symptom Onset?: 11/06/2023 (11/10/23 15:49:00) Hospitalized?: No (11/10/23 15:49:00) ICU?: No (11/10/23 15:49:00) Resident in congregate care?: No (11/10/23 15:49:00) ?.: No (11/10/23 15:49:00) Diagnostic Results Diagnostic Radiology [Within the Last 24 Hours] ?? XR Chest [address] ?? 11/10/23 16:12:53 IMPRESSION: No active cardiopulmonary disease. ?? Signed By: ZORAN BETANCOURT MD Magnetic Resonance Imaging [Within the Last 24 Hours]?? No qualifying data available. Computed Tomography [Within the Last 24 Hours]?? No qualifying data available. recent EKG?? No qualifying data available. Ultrasound [Within the Last 24 Hours]?? No qualifying data available. Nuclear Medicine [Within the Last 24 Hours]?? No qualifying data available. Medications Inpatient DuoNeb, 3 mL, NEB, RTQ4H Lovenox, 40 mg= 0.4 mL, Subcutaneous, q24H methylPREDNISolone (SOLU-Medrol) PF, 40 mg= 1 mL, IV, q8H NS 1,000 mL, 1000 mL, IV Pulmicort Respules, 0.5 mg= 2 mL, NEB, RTBID Rocephin sterile water, 1 mL, IV, As Indicated Tylenol, 650 mg= 2 tab(s), Oral, q4H, PRN Zithromax Zofran, 4 mg= 2 mL, IV Push, q8H, PRN Assessment/Plan COPD with exacerbation (Chronic obstructive pulmonary disease with (acute) exacerbation, J44.1) Hypercapnia (Other abnormalities of breathing, R06.89) Shortness of breath (Shortness of breath, [id number]) Orders: ipratropium-albuterol, 3 mL, Soln-Inh, NEB, RTQ4H, Routine, First Dose: 11/11/23 15:00:00 CDT methylPREDNISolone, 40 mg, Powder-Inj, IV, [id number], Routine, First Dose: 11/11/23 14:00:00 CDT, 11/11/23 13:52:00 CDT male with past medical history of COPD??who presented to the emergency room at 2039.?? Shortness ofbreath and chest pain.?? He states he has had cough productive of white/clear sputum, progressive shortness of breath??but denies any fevers, chills, chest pain, nausea, vomiting, diarrhea, constipation.?On arrival to emergency room??initial temperature was??98??heart rate was 110??blood pressure 113/91 respiratory rate 30??O2 saturation??95% on 3 L.?? Further workup showed??white blood cell count of 7.8,??BNP 32,??flu and COVID antigen??negative, lactic acid negative.?? ABG showed pH 7. 19??pCO2 58 pO2 95??HCO3 22. ??Chest x-ray was negative for acute findings.?? He was started on BiPAP??continuous, given??IV ceftriaxone, azithromycin, normal saline, DuoNebs. ??He is being admitted to the inpatient hospital service for further management. ?? 1.?? Acute hypoxic hypercapnic respiratory failure: Likely due to COPD exacerbation. -??ABG showing pH 7. 19??pCO2 58 pO2 95??HCO3 22. -??Adjust BiPAP to maintain saturation above 92%.?? -??Repeat ABG with pH 7.20??pCO2 70 pO2 115??HCO3 24.3. ?? -?Duo-Nebs, Pulmicort, Solu-Medrol. ??IV ceftriaxone azithromycin??continued. ??Telemetry monitoring. ?? 2. ??COPD exacerbation: DuoNeb, Pulmicort, Solu-Medrol q8hr, antibiotics above ?? 3.?? Tobacco abuse: Counseled on cessation, declining nicotine patch at this time ?? DVT ppx:Lovenox??subcu ?? PCU Inpatient Telemetry High risk of deterioration Electronically Signed on 11/11/2023 14:09 CDT PRAFUL TONY MD History and physical note * DARA CASAS MD: PERFORM Event Display: History and Physical Authored Date: Chief Complaint brought in by ems for shortness of breath. History of Present Illness Acdhth-koio-uiz male with past medical history of COPD??who presented to the emergency room at 2039.?? Shortness of breath and chest pain.?? He states he has had cough productive of white/clear sputum, progressive shortness of breath??but denies any fevers, chills, chest pain, nausea, vomiting, diarrhea, constipation.?On arrival to emergency room??initial temperature was??98??heart rate was 110??blood pressure 113/91 respiratory rate 30??O2 saturation??95% on 3 L.?? Further workup showed??white blood cell count of 7.8,??BNP 32,??flu and COVID antigen??negative, lactic acid negative.?? ABG s howed pH 7.?? 1 9??pCO2 58 pO2 95??HCO3 22. ??Chest x-ray was negative for acute findings.?? He wasstarted on BiPAP??continuous, given??IV ceftriaxone, azithromycin, normal saline, DuoNebs. ??He is being admitted to the inpatient hospital service for further management. Review of Systems Except as documented all systems reviewed and negative.?? Physical Exam Vitals & Measurements HR:??93??(Peripheral)?? RR:??20??(Total)?? BP:??113/91?? BP:??91/44(BMDI)?? SpO2:??99%?? HT:??162.56??cm?? HT:??162.56??cm?? WT:??46.4??kg??(Dosing)?? WT:??46.4??kg??(Dosing)?? BMI:??17.56?? BMI:??17.56?? General - thin make,??NAD, in bed comfortably HEENT- NCAT, EOMI, PERRL, oral mucous membranes moist Cardiovascular - tachycardic no m/r/g, no lower extremity edema, distal pulses intact Respiratory - diminished breath sounds bilaterally, no use of accessory muscles. saturating well onBiPAP Skin - No rashes, skin warm and dry, no erythematous areas Abdomen - Normal bowel sounds, abdomen soft, nontender MSK - JEANNIE bilaterally Neurological - Alert and oriented x 3, cranial nerves grossly intact Psych: normal mood and speech Assessment/Plan Inpjyd-lczr-qgd male with past medical history of COPD??who presented to the emergency room at 2039.?? Shortness of breath and chest pain.?? He states he has had cough productive of white/clear sputum, progressive shortness of breath??but denies any fevers, chills, chest pain, nausea, vomiting, diarrhea, constipation.?On arrival to emergency room??initial temperature was??98??heart rate was 110??blood pressure 113/91 respiratory rate 30??O2 saturation??95% on 3 L.?? Further workup showed??white blood cell count of 7.8,??BNP 32,??flu and COVID antigen??negative, lactic acid negative.?? ABG s howed pH 7. 19??pCO2 58 pO2 95??HCO3 22. ??Chest x-ray was negative for acute findings.?? He was started on BiPAP??continuous, given??IV ceftriaxone, azithromycin, normal saline, DuoNebs. ??He is being admitted to the inpatient hospital service for further management. ?? 1.?? Acute hypoxic hypercapnic respiratory failure: Likely due to COPD exacerbation. ABG showing pH7. 19??pCO2 58 pO2 95??HCO3 22. Continue BiPAP to maintain saturation above 92%.?? Repeat ABG with pH 7.18 pCO2 65 pO2 115??HCO3 24.3. ??BiPAP adjustments made, repeat??ABG in??1hr. CXR??without acute findings.?DuoNebs, Pulmicort, Solu-Medrol. ??IV ceftriaxone azithromycin??continued. ??Telemetry monitoring. ?? 2. ??COPD exacerbation: DuoNeb, Pulmicort, Solu-Medrol, antibiotics above ?? 3.?? Tobacco abuse: Counseled on cessation, declining nicotine patch at this time ?? DVT ppx:Lovenox??subcu ?? PCU Inpatient Telemetry Problem List/Past Medical History Ongoing No qualifying data Historical No qualifying data COPD Procedure/Surgical History ???Appendectomy Medications Inpatient DuoNeb, 3 mL, NEB, RTQ6H Lovenox, 40 mg= 0.4 mL, Subcutaneous, q24H NS 1,000 mL, 1000 mL, IV NS Bolus, 500 mL, IV, Once Pulmicort Respules, 0.5 mg= 2 mL, NEB, RTBID SOLU-Medrol, 40 mg= 1 mL, IV Push, [id number] sterile water, 1 mL, IV, As Indicated Tylenol, 650 mg= 2 tab(s), Oral, q4H, PRN Zofran, 4 mg= 2 mL, IV Push, q8H, PRN Home No active home medications Allergies No Known Allergies Social History Alcohol Past Home/Environment/Abuse Living situation: Home/Independent. Injuries/Abuse/Neglect in household: No. Abuse Concerns: No Signs or Symptoms. Neglect Concerns: No Signs or Symptoms. Marijuana Recreational Use Never smoker Nutrition/Health Regular diet Diet:. Psychosocial No Hospital Clergy to Visit:. Substance Abuse Past Tobacco 5 or more cigarettes avg volume per day (=>1/4 pack), 10 or more cigarettes (1/2 pack or more)/day in last 30 days, Cigarettes Lab Results ?? All Labs [Within the Last 24 Hours] Site for ABG Draw: RR (11/10/23 20:41:00) Arterial Puncture Charge: Yes (11/10/23 20:41:00) Italo's Test: Positive (11/10/23 20:41:00) pH DM Arterial:??7.22??Critical (11/10/23 20:36:00) pCO2 DM Arterial:??54.8 mmHg??High (11/10/23 20:36:00) pO2 DM Art: 87.2 mmHg (11/10/23 20:36:00) HCO3 Calc Arterial: 22.1 mmol/L (11/10/23 20:36:00) Base Excess Calc Arterial:??-6??Low (11/10/23 20:36:00) Art Italo's Test: Posi (11/10/23 20:36:00) Art Analyzed By: [id number] (11/10/23 20:36:00) Art Analyzer: [id number] (11/10/23 20:36:00) Art Drawn By: [id number] (11/10/23 20:36:00) Art Drawn Location: ED7 (11/10/23 20:36:00) Art EPAP: 4 (11/10/23 20:36:00) Art FiO2: 35 (11/10/23 20:36:00) Art IPAP: 14 (11/10/23 20:36:00) Art Liter Flow: 3 (11/10/23 18:39:00) Art O2 Device: BIPAP (11/10/23 20:36:00) Art O2 Sat: 94 (11/10/23 20:36:00) Art Sample Site: Right Radial (11/10/23 20:36:00) Art Set Rate: 18 (11/10/23 20:36:00) WBC: 7.8 K/uL (11/10/23 15:49:00) RBC: 4.46 (11/10/23 15:49:00) Hgb: 13.7 g/dL (11/10/23 15:49:00) HCT: 41.6 % (11/10/23 15:49:00) MCH: 30.8 pg (11/10/23 15:49:00) MCHC: 33 (11/10/23 15:49:00) MCV: 93.3 fL (11/10/23 15:49:00) Plt Cnt: 257 x10^3/mcL (11/10/23 15:49:00) MPV: 8.1 fL (11/10/23 15:49:00) RDW: 14 % (11/10/23 15:49:00) Neutrophils% Auto:??70.2 %??High (11/10/23 15:49:00) Lymphocytes% Auto:??11.4 %??Low (11/10/23 15:49:00) Monocytes% Auto: 6.3 % (11/10/23 15:49:00) Basophils% Auto: 1.1 % (11/10/23 15:49:00) Eosinophils% Auto:??11 %??High (11/10/23 15:49:00) Neutrophils# Auto: 5.4 (11/10/23 15:49:00) Lymphocytes# Auto:??0.9??Low (11/10/23 15:49:00) Monocytes# Auto:??0.5??Low (11/10/23 15:49:00) Basophils# Auto:??0.1??Low (11/10/23 15:49:00) Eos# Auto:??0.9??Low (11/10/23 15:49:00) nRBC% Auto: 0 % (11/10/23 15:49:00) nRBC# Auto: 0 /100 WBC (11/10/23 15:49:00) PT: 10.6 second(s) (11/10/23 15:49:00) INR: 0.9 (11/10/23 15:49:00) Ur Color: Yellow (11/10/23 18:09:00) Ur Appearance: Clear (11/10/23 18:09:00) Ur Specific [place]: 1.015 (11/10/23 18:09:00) Ur pH: 5.0 (11/10/23 18:09:00) Ur Protein: NEGA (11/10/23 18:09:00) Ur Glucose: NEGA (11/10/23 18:09:00) Ur Ketone: NEGA (11/10/23 18:09:00) Ur Bili: NEGA (11/10/23 18:09:00) Ur Blood: NEGA (11/10/23 18:09:00) Ur Nitrite: NEGA (11/10/23 18:09:00) Ur Urobilinogen: 0.2 (11/10/23 18:09:00) Ur Leukocyte Esterase: NEGA (11/10/23 18:09:00) Ur Collection Source: U Clean Catch (11/10/23 18:09:00) Dipstick Type?: Auto (11/10/23 18:09:00) Reflex Microscopic Type?: Not Reqd (11/10/23 18:09:00) Reflex Urine Culture?: No (11/10/23 18:09:00) Sodium: 143 mmol/L (11/10/23 15:49:00) Potassium: 3.7 mEq/L (11/10/23 15:49:00) Chloride: 105 mmol/L (11/10/23 15:49:00) Carbon Dioxide: 33 mmol/L (11/10/23 15:49:00) BUN: 13 mg/dL (11/10/23 15:49:00) Creatinine: 1.1 mg/dL (11/10/23 15:49:00) eGFR:??77 mL/min/1.73m?Low (11/10/23 15:49:00) Glucose:??111 mg/dL??High (11/10/23 15:49:00) Calcium: 8.6 mg/dL (11/10/23 15:49:00) Anion Gap: 5 mmol/L (11/10/23 15:49:00) Osmol Ca mOsm/kg (11/10/23 15:49:00) BUN/Crea Ratio: 11.82 (11/10/23 15:49:00) Albumin:??3.5 g/dL??Low (11/10/23 15:49:00) Alkaline Phosphatase: 107 U/L (11/10/23 15:49:00) ALT:??15 U/L??Low (11/10/23 15:49:00) AST:??14 U/L??Low (11/10/23 15:49:00) Bili Total: 0.2 mg/dL (11/10/23 15:49:00) Prot Total: 7.4 g/dL (11/10/23 15:49:00) Globulin: 4 (11/10/23 15:49:00) Albumin/Globulin Ratio:??0.9??Low (11/10/23 15:49:00) B Type Natriuretic Peptide: 32 pg/mL (11/10/23 15:49:00) Ca Corrected: 9 mg/dL (11/10/23 15:49:00) Lactic Acid: 0.8 mmol/L (11/10/23 15:49:00) C Reactive Protein:??2 mg/dL??High (11/10/23 15:49:00) Influenza A: Negative..... (11/10/23 15:49:00) Influenza B: Negative..... (11/10/23 15:49:00) [id number]: Negative..... (11/10/23 15:49:00) Kit Lot Exp: 06/17/24 (11/10/23 15:49:00) Kit Lot Exp: 06/17/24 (11/10/23 15:49:00) Kit Lot Number: 06/17/2024 (11/10/23 15:49:00) Kit Lot Number: [id number] (11/10/23 15:49:00) QCI 1: Pass (11/10/23 15:49:00) QCI 1: Pass (11/10/23 15:49:00) QCI 2: Pass (11/10/23 15:49:00) QCI 2: Pass (11/10/23 15:49:00) First test?: No (11/10/23 15:49:00) Employed in healthcare?: No (11/10/23 15:49:00) Symptomatic as defined by CDC?: Yes (11/10/23 15:49:00) Date of Symptom Onset?: 11/06/2023 (11/10/23 15:49:00) Hospitalized?: No (11/10/23 15:49:00) ICU?: No (11/10/23 15:49:00) Resident in congregate care?: No (11/10/23 15:49:00) ?.: No (11/10/23 15:49:00) Diagnostic Results Diagnostic Radiology [Within the Last 24 Hours] ?? XR Chest [address] ?? 11/10/23 16:12:53 IMPRESSION: No active cardiopulmonary disease. ?? Signed By: ZORAN BETANCOURT MD Electronically Signed on 11/10/2023 23:58 CDT DARA CASAS MD Discharge summary * PRAFUL TONY MD: PERFORM Event Display: Discharge Summary Authored Date: [id number] ?? Admit date:??11/10/2023 15:30:45 ? Discharge date:??11/13 ? Discharge position: ??Home with Home health. ? Discharge diagnoses:? Diagnosis (3) Active ?COPD with exacerbation (ICD-10-CM J44.1, Discharge, Medical) ?Hypercapnia (ICD-10-CM R06.89, Discharge, Medical) ?Shortness of breath (PNED [id number], Reason For Visit, Medical) ? Inpatient consultation:?? No qualifying data available. ? Hospital course This is a 68 years old male with??past medical history of COPD??who presented to the emergency roomat 2039.?? Shortness of breath and chest pain.?? He states he has had cough productive of white/clear sputum, progressive shortness of breath??but denies any fevers, chills, chest pain, nausea, vomiting, diarrhea, constipation.?On arrival to emergency room??initial temperature was??98??heart rate was 110??blood pressure 113/91 respiratory rate 30??O2 saturation??95% on 3 L.?? Further workup showed??white blood cell count of 7.8,??BNP 32,??flu and COVID antigen??negative, lactic acid negative.?? ABG showed pH 7. 19??pCO2 58 pO2 95??HCO3 22. ??Chest x-ray was negative for acute findings.?? He was started on BiPAP??continuous, given??IV ceftriaxone, azithromycin, normal saline, DuoNebs. ??He is being admitted to the inpatient hospital service for further management. ?? 1.??Acute hypoxic hypercapnic respiratory failure: Likely due to COPD exacerbation. 2. ??COPD exacerbation: -??ABG showing pH 7. 19??pCO2 58 pO2 95??HCO3 22. -??Adjust BiPAP to maintain saturation above 92%.?? -??Repeat ABG with pH 7.20??pCO2 70 pO2 115??HCO3 24.3.-->??pH 7.31 -Repeat ABG :??Normal -?Duo-Nebs, Pulmicort, Solu-Medrol. ??IV ceftriaxone azithromycin??continued. ??Telemetry monitoring---> levofloxacin, prednisone and duoneb. [facility] 3.?? Tobacco abuse: Counseled on cessation, declining nicotine patch at this time ? Discharge physical examination Vital Signs (last 24 hrs) ?Last Charted Temp Oral?98 DegF ??(NOV 13:) Heart Rate Monitored?95 bpm ??(NOV 13:) Resp Rate?17 br/min ??(NOV 13:) SBP?H??146??mmHg ??(NOV 13:) DBP?H??83??mmHg ??(NOV 13:) General: well appearing, no acute distress Respiratory: normal chest wall expansion, CTA B, no r/r/w, no rubs Cardiovascular: RRR, no m/r/g, Normal S1 and S2 Abdomen: Soft, non-tender, non-distended, normal bowel sounds in all quadrants, no hepatosplenomegaly, no tympany Integumentary: warm, dry, and pink, with no rash, purpura, or petechia Neurological: 2+ patellar reflexes, Cranial Nerves II-XII grossly intact, no tics, normal sensationto pressure and light touch ? Discharge medications ??No discharge medication reconciliation has been completed for this patient. ? Time spent for discharge is more than 40 minutes. ??time includes the following activities??evaluation and management of the patient Preparation of the discharge medication reconciliation Preparation of discharge prescriptions Preparation of discharge summary Electronically Signed on 11/14/2023 10:54 CDT PRAFUL TONY MD Patient Care team information Care Team Related Persons Name: NEED TO, UPDATE Address: Home
--- OUTSIDE RECORDS SUMMARY | 2023-12-09 01:22 | XMS_ITS | Continuity of Care Document ---
Author Name Unknown Organization [facility] Address [address] [place] [address] Phone Care Team Providers Care Sub Master Name Role Phone Abraham Bower MD Unavailable [...] time each day 5 MCG - Active Procedures Procedure Date OFFICE/OUTPATIENT VISIT EST OFFICE/OUTPATIENT VISIT NEW Advance Directives Directive Yes / No Effective Date File Name No Information Encounters Encounter Description Practice Location Reason(s) For Visit Diagnoses Date Provider Providers Copied on Encounter [facility], [address] [place] [address], [address] [place] [address] tel:[phone] [facility] No Information 9 Sathish Rosario. [address] [place] [address], [address] [place] [address]. tel:[phone] OFFICE/OUTPA TIENT VISIT EST [facility], [address] [place] [address], [address] [place] [address] tel:[phone] [facility] Headaches (chief complaint) New daily persistent headache 8 Sathish Rosario. [address] [place] [address], [facility], . tel:[phone] Referring Provider: Abraham Rayo, [address] [place] [address], [facility]. tel:[phone] OFFICE/OUTPA TIENT VISIT NEW [facility], [address] [place] [address], [facility], tel:[phone] [facility] Headaches (chief complaint) Abnormal CT (chief complaint) New daily persistent headacheAbnormal brain scan 8 Sathish Rosario. [address] [place] [address], . tel:[phone] Referring Provider: Abraham Rayo, [address] [place] [address], [place] [address]. tel:[phone] Family History Family Member Type Diagnosis Age At Onset Father Problem (finding) Multiple medic al problems (Cause Of ) Mother Problem (finding) Unknown cause (Cause Of ) Payers Payer name Insurance type Covered republican ID Authorvaishalia estelita(s) [facility] () [id number] Medicaid [id number] Social History Type Description Quantity Date Captured Comments Sex Male Smoking Status No Information Chief Complaint And Reason For Visit No Information Reason For Referral Reason For Referral No Information Plan Of Treatment Date Type Action Status Goal Tobacco cessation counseling completed Goal Tobacco cessation counseling completed Patient Education Headache: Care Instruct paulina completed Patient Education Headache: Care Instruct ions [...] he had his ESR done at the [facility] in [place], [place] but I do not have the [...] a history of migraine or sinus headaches. Functional Status Date Functional Assessmen t No Information Instructions Date Instruction Additional Infor mation No Information Assessments Type Assessment Date No Information Patient Care Teams Name Effective Dates (start - stop) Status Members No Information
--- OUTSIDE RECORDS SUMMARY | 2023-12-09 01:22 | XMS_ITS | Continuity of Care Document ---
Author Name Unknown Organization [facility] Address [address] [place] [address] Phone Care Team Providers Care Betting Agency Manager Name Role Phone Services, Substance Abuse Unavailable Damian Doll Unavailable Unavailable Procedures Procedure Date AOD Screening; Intake Advance Directives Directive Yes / No Effective Date File Name No Information Encounters Encounter Description Practice Location Reason(s) For Visit Diagnoses Date Provider Providers Copied on Encounter [facility], [address] [place] [address], [id number], tel:[phone] [facility] AOD No Information Services Substance Abuse. [address] [place] [address], [address]. tel:[phone] Consulting Provider: Damian Hernandez, [address] [place] [address], [id number]. Family History Family Member Type Diagnosis Age At Onset No Information Payers Payer name Insurance type Covered green party ID Authoriza tion(s) AOD Drug MediCal 11 [id number] Social History Type Description Quantity Date Captured [...]
--- NOTE | 2023-12-09 02:05 | ECG_ITS ---
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 Measurements Intervals [place] Rate: 112 P: 83 NC: 183 QRS: 91 QRSD: 84 T: 78 QT: 303 QTc: 415 Interpretive Statements SINUS TACHYCARDIA WITH OCCASIONAL SUPRAVENTRICULAR PREMATURE COMPLEXES BORDERLINE RIGHT AXIS DEVIATION [QRS AXIS > 90] Compared to ECG 01/16/2023 12:39:37 No significant changes Electronically Signed On 12-09-2023 9:20:08 CDT by Garth Glover M.D. [id number]
--- NOTE | 2023-12-09 02:11 | CTR_ITS ---
PROCEDURE INFORMATION: Exam: CTA Chest With Contrast Exam date and time: 12/09/2023 5:08 AM Age: 68 years old Clinical indication: Shortness of breath; Additional info: SOB TECHNIQUE: Imaging protocol: Computed tomographic angiography of the chest with contrast. Exam focused on the arteries. 3D rendering (Not supervised by radiologist): MIP and/or 3D reconstructed images were created by the technologist. Radiation optimization: All CT scans at this facility use at least one of these dose optimization techniques: automated exposure control; mA and/or kV adjustment per patient size (includes targeted exams where dose is matched to clinical indication); or iterative reconstruction. Contrast material: OMNI 350; Contrast volume: 100 ml; Contrast route: INTRAVENOUS (IV); COMPARISON: CT angio chest PE protcl [id number] 05/10/2021 11:14 AM RADIATION DOSE METRICS: Total DLP (mGy-cm): 178.3 FINDINGS: Pulmonary arteries: Contrast bolus timing is adequate for assessment of the pulmonary arteries. Suggestion of partial filling defect within the posterior left upper distal segmental artery extending into the branching subsegmental arteries. Aorta: Mild scattered atherosclerotic disease of the visualized aorta and its major branches. Lungs: Centrilobular emphysema, [id number]. Bronchial wall thickening and several regions of basilar bilateral airway opacification concerning for aspiration. Bilateral apical scarring/nodularity. There has been similar sites of increasing nodularity predominantly of the bilateral lung bases. Pleural spaces: Unremarkable. No pneumothorax. No pleural effusion. Heart: Unremarkable. No cardiomegaly. No pericardial effusion. Heart RV/LV ratio: The RV to LV ratio is 0.8. Lymph nodes: Unremarkable. No enlarged lymph nodes. Gallbladder and bile ducts: Cholelithiasis without evidence for cholecystitis. Bones/joints: Degenerative change of the visualized osseous structures, mild. Soft tissues: Right upper lobe central predominant soft tissue consolidation which involve the airways and vasculature, some satellite tree-in-bud nodularity is appreciated distally within the posterior right upper lobe, this mass has progressed from ground-glass to solid component from prior comparative cross-sectional examination. CT/CT angio chest PE protcl [id number] IMPRESSION: 1. Suggestive of partially occlusive distal segmental pulmonary embolus extending into the subsegmental arteries of the posterior right upper lobe. No evidence of hemodynamic instability. 2. Increasing lung field nodularity, most concerning of which is in the right upper lobe where there has been progression from ground-glass component to solid component, concerning for evolving neoplasm. Recommend pulmonary consultation. 3. Additional predominantly basilar increase in nodularity, nonspecific, may represent infectious, inflammatory etiologies, additionally neoplasm again is not entirely excluded. Correlate with clinical presentation. 4. Multifocal filling defects within the bilateral lung base airways, concerning for aspiration, additionally bronchial wall thickening is noted, suggesting chronic etiology. 5. Additional findings as above. COMMENTS: The presence of pulmonary emphysema on CT is an independent risk factor for lung cancer. In the absence of a history or active diagnosis of lung cancer, it is recommended that this patient with emphysema be evaluated for enrollment in a low dose CT lung cancer screening program.
--- NOTE | 2023-12-09 02:11 | USCV_ITS ---
Naren Pritchard Age: 68 Gender: M : 1955 Exam Date: 12/09/2023 04:11 Ordering Phys: George Felipe MD Technologist: SABINE [place]am [place] [facility] [place] Indication: SOB, history of COPD, long-term smoker, continues smoking. On BIPAP in ICU-2. BP: 126 / 72 HR: 90 Rhythm: Sinus Technical Quality: Adequate MEASUREMENTS (Male / Female) Normal Values 2D ECHO LV Diastolic Diameter PLAX 3.4 cm 4.2 - 5.9 / 3.9 - 5.3 cm IVS Diastolic Thickness 1.3 cm 0.6 - 1.0 / 0.6 - 0.9 cm IVS Systolic Thickness 1.3 cm LVPW Diastolic Thickness 0.9 cm 0.6 - 1.0 / 0.6 - 0.9 cm LVPW Systolic Thickness 1.2 cm LVOT Diameter 1.5 cm LV Ejection Fraction 2D Teich 66.5 % LV Ejection Fraction MOD 2C 63.0 % LV Ejection Fraction 2C AL 67.7 % LA Diameter 1.5 cm Aorta at Sinotubular Diameter 2.3 cm IVC Diameter 1.5 cm M-MODE LA Ao Ratio MM 0.6 AV Cusp Separation MM 1.4 cm DOPPLER AV Peak Velocity 124.0 cm/s LVOT Peak Velocity 89.0 cm/s AV Area Cont Eq vti 1.3 cm squared AV Area Cont Eq pk 1.3 cm squared MV Peak Velocity 100.0 cm/s MV Area PHT 6.6 cm squared Mitral E to A Ratio 1.4 PV Peak Velocity 109.0 cm/s FINDINGS Left Ventricle Left ventricle is normal in size. LV systolic function is normal with EF of 55-60%. No regional wall motion abnormalities are seen Right Ventricle Normal in size and function Right Atrium Normal in size Left Atrium Normal in size Mitral Valve Structurally normal mitral valve. Mild mitral regurgitation. Aortic Valve Structurally normal aortic valve. No significant stenosis or regurgitation. Tricuspid Valve Insufficient TR jet to evaluate RVSP. Pulmonic Valve Not well visualized Pericardium Normal Aorta Normal in size IVC Appears to be normal CONCLUSIONS LV systolic function is normal with EF of 55-60% Mild mitral regurgitation. No comparison studies are available. Garth Glover MD (Electronically Signed) Final Date: 09 Dec 2023 15:01 S
--- NOTE | 2023-12-09 02:12 | P.HP_ITS ---
Providers/Chief Complaint Admitting Physician: George Felipe MD Primary Care Provider: Judith Lieberman, SHOE COVERER-C Chief Complaint: COPD History of Present Illness Naren Pritchard is a 68 year old male with a past medical history of severe COPD, quit smoking 3 days ago, history of CAD, who presents to [facility] due to progressive shortness of breath, productive cough, denies any hemoptysis, no calf pain, no calf swelling but does report increased shortness of breath, shortness of breath with rest, productive cough, fatigue, malaise, he uses 3 L chronically, he was seen at [facility] for acute respiratory distress acute hypoxic respiratory failure secondary to COPD, left hilar infiltrate concerning for pneumonia was given Levaquin DuoNeb, patient refused BiPAP therapy, placed on 4 L, here he is alert oriented x 3, following all commands, I have discussed with him about my concerns for hypercarbic respiratory failure he is agreed to be put on BiPAP therapy, will do CT angiogram of the chest, he reiterates that he is a DNR/DNI he does not want to be resuscitated he does not want to be put on a ventilator, we discussed the morbidity mortality associate with his hypercarbic respiratory failure and the compliance with medical therapy and compliance with BiPAP therapy, we did discuss placing him on a Precedex drip to help with his claustrophobia associate with BiPAP mask, he is agreeable Review of Systems Const: Reports: fatigue and malaise; Denies: fever(s) or chills Card: Denies: chest pain Resp: Reports: dyspnea GI: Denies: abdominal pain Medications/Allergies Home Medications Medication Instructions Recorded Confirmed Last Taken Type sumatriptan succinate 50 mg tablet 50 mg PO Q3D PRN headaches 08/13/19 12/09/23 03/14/23 History aspirin 81 mg tablet,delayed 81 mg PO DAILY 11/27/19 12/09/23 09/13/23 History release cholecalciferol (vitamin D3) 25 25 mcg PO DAILY 11/27/19 12/09/23 09/13/23 History mcg (1,000 unit) capsule (Vitamin D3) omega-3 fatty acids 1,000 mg PO BID 12/25/21 12/09/23 09/13/23 History albuterol sulfate 2.5 mg/3 mL 2.5 mg (3 mL) inhalation Q4H PRN 06/08/22 11/08/23 03/15/23 Rx (0.083 %) solution for nebulization shortness of breath or wheezing #300 mL nebulizers #1 ea 06/08/22 11/08/23 Unknown Rx fluticasone fur. 100 mcg-umeclid 1 inh inhalation Q24H #60 ea 02/07/23 11/08/23 09/13/23 Rx 62.5 mcg-vilant 25 mcg inhalat.powder (Trelegy Ellipta) guaifenesin 400 mg tablet 400 mg PO DAILY #30 tabs 02/07/23 12/09/23 09/13/23 Rx omeprazole 20 mg capsule,delayed 20 mg PO BID #60 caps 02/07/23 11/08/23 09/13/23 Rx release topiramate 100 mg tablet 100 mg PO .at bedtime #30 tabs 03/24/23 11/08/23 09/13/23 Rx fluticasone propionate 50 2 spray intranasal DAILY 30 days 05/11/23 11/08/23 09/13/23 Rx mcg/actuation nasal #16 grams spray,suspension (Flonase Allergy Relief) albuterol sulfate 90 mcg/actuation 1 inh inhalation Q6H PRN shortness 08/09/23 11/08/23 Unknown Rx aerosol inhaler of breath or wheezing #8.5 grams trazodone 100 mg tablet 100 - 150 mg PO BEDTIME 09/13/23 12/09/23 12/06/23 History Disposable nebulizer circuit #1 ea 11/08/23 11/08/23 Unknown Rx Allergies Allergy/AdvReac Type Severity Reaction Status Date / Time No Known Allergies Allergy Verified 12/09/23 01:38 PFSH Acute PFSH: Medical History History of migraine headaches Vitamin D deficiency Hepatitis C Treatment status unknown Hx of colonic polyps Sessile on colonoscopy 02/16 Depression GERD (gastroesophageal reflux disease) Peptic ulcer disease Gastric ulcer on EGD 02/16 COPD (chronic obstructive pulmonary disease) Surgical History History of colonoscopy with polypectomy 2019 Status post excision of lipoma (~01/2019) Hx of appendectomy Family History Father Tuberculosis Denies family history of Diabetes Cancer Social History Smoking and tobacco/nicotine status: current every day tobacco/nicotine user cigarettes Packs smoked per day: 1.5 Years cigarettes smoked: 44 [ Other cigarette details: started at age 22] Second hand smoke exposure: No Alcohol intake: current Alcohol intake frequency: holidays/special occasions only Substance/Drug Use: unknown Adopted: No Caregiver/support person: No Lives independently: Yes Household members: spouse Housing: House Marital status: service: No Current occupational status: retired Pets and animals: Yes Do you think of yourself as: Straight/Heterosexual Current gender identity: Male Vitals/I&O/Wt Last Vital Signs Temp 98.7 F 12/09/23 01:28 Pulse 115 H 12/09/23 02:00 Resp 20 H 12/09/23 01:45 BP 126/72 12/09/23 02:00 Pulse Ox 96 12/09/23 02:00 O2 Del Method Nasal Cannula 12/09/23 02:00 O2 Flow Rate 4 12/09/23 02:00 Weight last 48 hrs Weight 41.912 kg Physical Exam Const: COMMON NORMALS: no acute distress and patient oriented x3 GENERAL APPEARANCE: ill appearing and frail appearing OTHER: Cachexia, evidence of muscle wasting, bilateral temporal muscle wasting, bilateral clavicular fat pad loss, bilateral rib fat pad loss, muscle wasting of bilateral arms bilateral thighs HENMT: COMMON NORMALS: normocephalic HEAD & SCALP: normocephalic Eye: COMMON NORMALS: Equal, round and reactive pupils present and EOMs intact bilaterally Neck/C-Spine: COMMON NORMALS: no JVD Resp: COMMON NORMALS: normal respiratory effort, No retractions and No use of accessory muscles AUSCULTATION: crackles and wheezes Cardio: COMMON NORMALS: no JVD, regular rate, regular rhythm, S1 normal heart sound present and S2 normal heart sound present RATE: tachycardic RHYTHM: regular rhythm HEART SOUNDS: S1 normal heart sound present and S2 normal heart sound present GI: COMMON NORMALS: Normal to inspection, nondistended, normoactive bowel so unds present, Soft to palpation and non-tender Extremity: COMMON NORMALS: no calf tenderness and no pedal edema Neuro: COMMON NORMALS: patient oriented x3, CN's II-XII intact bilaterally and moves all extremities Psych: COMMON NORMALS: mental status grossly normal A&P Assessment and plan (1) Acute respiratory failure with hypoxia and hypercapnia: (2) Acute exacerbation of chronic obstructive pulmonary disease (COPD): (3) Pneumonia: (4) NSTEMI (non-ST elevated myocardial infarction): (5) Protein-calorie malnutrition, severe: (6) Cachexia: Plan Acute hypoxic hypercarbic respiratory failure ? Secondary COPD exacerbation ? Secondary to pneumonia ? Plan ? CT angiogram of the chest ? Follow blood cultures ? Sputum cultures ? Respiratory viral panel ? Monitor respiratory status closely -Start BiPAP therapy, ABG, advised of compliance with BiPAP therapy concerns for morbidity and mortality associate with hypercarbic respiratory failure ? Precedex drip to help with anxiety agitation ? Vancomycin ? Cefepime ? DuoNeb ? Budesonide ? Solu-Medrol 40 mg IV every 8 hours ? Patient is DNR/DNI confirmed with this patient multiple times nursing staff at bedside ? Lovenox for DVT prophylaxis ? Severe protein calorie malnutrition, cachexia, BMI 15.9, consult dietary, protein shakes ? NSTEMI, type I versus type II no chest pain complaints, serial EKGs consult troponins, telemetry monitoring, cardiac echo Attestations Medical Necessity Statement*: Patient requires hospitalization, inpatient, greater than 2 midnights, for acute hypoxic hypercarbic respiratory failure secondary to COPD, pneumonia, NSTEMI Diagnoses Acute respiratory failure with hypoxia and hypercapnia J96.01; J96.02 Acute exacerbation of chronic obstructive pulmonary disease (COPD) J44.1 Pneumonia J18.9 NSTEMI (non-ST elevated myocardial infarction) I21.4 Protein-calorie malnutrition, severe E43 Cachexia R64
[2023-12-09] MEDS: enoxaparin 40 mg/0.4 mL Syringe SUBCUT ×2 (02:27→13:57)
[2023-12-09] MEDS: pantoprazole 40 mg SDV IVP (02:28)
[2023-12-09] MEDS: cefepime 1,000 MG in sodium chloride 0.9% (plus) 50 ML 100 MG IV ×2 (02:29→13:56)
[2023-12-09] MEDS: vancomycin 750 MG in sodium chloride 0.9% 250 ML 250 MG IV (02:50)
--- NOTE | 2023-12-09 02:52 | PC.NURSE ---
Arrival to ICU: Pt arrived to ICU 2 @0115 via EMS. Pt connected to continuos cardiac monitoring. Dr. Felipe notified of hx of TB exposure and sepsis risk @[id number].
[2023-12-09 03:08] LABS: ABG PH Result 7.27 (7.35-7.45); Arterial Blood Gas Hematocrit 40.5 % (42-52); Base Excess ABG 4.7 mmol/L (-2.0-2.0); Blood Gas Allen Test Pos; Blood Gas Sample Site Brachial, right; Blood Gas Sample Type Arterial; HCO3 ABG 34.1 mmol/L (22-26); Oxygen Device NC; PO2 ABG 99.9 mmHg (80.0-100.0)
[2023-12-09 03:10] LABS: ABG PCO2 74.5 mmHg (35-45)
[2023-12-09] MEDS: ipratropium-albuterol 3 mL Neb INHALATION ×5 (03:22→20:40)
[2023-12-09] MEDS: dexmedeTOMIDine 0.9 % NaCL 400 MCG/100 ML PREMIX 1.05000000000000004 MCG IV (03:30)
[2023-12-09 04:02] LABS: Adenovirus Not Detected (NOT DETECT); Chlamydia Pneumoniae Not Detected (NOT DETECT); Coronavirus 229E,HKU1,NL63,OC4 Not Detected (NOT DETECT); Human Metapneumovirus Not Detected (NOT DETECT); Human Rhinovirus/Enterovirus Not Detected (NOT DETECT); Influenza A Not Detected (NOT DETECT); Influenza A H1 Not Detected (NOT DETECT); Influenza A H1-2009 Not Detected (NOT DETECT); Influenza A H3 Not Detected (NOT DETECT); Influenza B Not Detected (NOT DETECT); Mycoplasma Pneumoniae Not Detected (NOT DETECT); Parainfluenza Virus Type 1 Not Detected (NOT DETECT); Parainfluenza Virus Type 2 Not Detected (NOT DETECT); Parainfluenza Virus Type 3 Not Detected (NOT DETECT); Parainfluenza Virus Type 4 Not Detected (NOT DETECT); Respiratory Syncytial Virus A Not Detected (NOT DETECT); Respiratory Syncytial Virus B Not Detected (NOT DETECT); SARS-COV-2 Not Detected (NOT DETECT)
--- NOTE | 2023-12-09 04:04 | ECG_ITS ---
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 Measurements Intervals [place] Rate: 104 P: 82 CT: 178 QRS: 88 QRSD: 79 T: 63 QT: 320 QTc: 422 Interpretive Statements SINUS TACHYCARDIA Compared to ECG 12/09/2023 02:17:42 No significant changes Electronically Signed On 12-09-2023 9:23:07 CDT by Garth Glover M.D. [email or web address], centinela [email or web address]/[id number]
[2023-12-09 04:15] LABS: Lactic Sepsis W/Reflex 2.3 mmol/L (0.5-2.2); Troponin(5th) Baseline 32 ng/L (0-15)
[2023-12-09 04:21] LABS: Procalcitonin 0.89 ng/mL (0-0.5); Thyroid Stimulating Hormone 0.44 uIU/mL (0.27-4.20)
[2023-12-09] MEDS: iohexol 350 mg/mL 500 mL Btl (per mL) IV (05:22)
[2023-12-09 05:40] LABS: Reflex Lactate Order REFLEX LACTIC ORDERD
[2023-12-09 06:34] LABS: Troponin 5 2HR 30.33 ng/L (0-15)
[2023-12-09 06:35] LABS: Troponin 5 2HR Delta -1.67 ABS# (0-10)
[2023-12-09] MEDS: budesonide 0.5 mg/2 mL Neb INHALATION ×2 (07:37→20:40)
[2023-12-09] MEDS: methylPREDNISolone sod succ 40 mg/mL INJ IVP ×2 (08:00→15:51)
[2023-12-09] MEDS: aspirin 81 mg EC Tablet PO (08:00)
--- NOTE | 2023-12-09 09:19 | ECG_ITS ---
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 Measurements Intervals [place] Rate: 102 P: 0 [place]: 0 QRS: 87 QRSD: 80 T: 71 QT: 324 QTc: 422 Interpretive Statements SINUS TACHYCARDIA Electronically Signed On 12-09-2023 9:22:26 CDT by Garth Glover M.D. [id number]
[2023-12-09 09:36] LABS: Troponin 5 6HR 25.15 ng/L (0-15)
[2023-12-09 09:38] LABS: Troponin 5 6HR Delta -6.85 ng/L (0-12)
[2023-12-09] MEDS: albuterol 2.5 mg/3 mL Neb INHALATION (17:48)
--- NOTE | 2023-12-09 19:54 | PM.PN ---
Subjective Subjective: On BiPAP this morning, doing slightly better in the late morning, weaned off BiPAP to nasal cannula. Has been having some cough, denies chest pain or pressure, denies hemoptysis. Vitals/I&O/Wt Last Vital Signs Temp 97.9 F 12/09/23 19:49 Pulse 109 H 12/09/23 19:49 Resp 18 12/09/23 19:49 BP 146/74 12/09/23 19:49 Pulse Ox 96 12/09/23 19:49 O2 Del Method Nasal Cannula 12/09/23 19:49 O2 Flow Rate 2 12/09/23 17:50 FiO2 30 12/09/23 07:41 12/09/23 12/09/23 12/09/23 06:59 14:59 22:59 Intake Total 305.583 / 305.583 594.417 / 594.417 290 / 884.417 Balance 305.583 / 305.583 594.417 / 594.417 290 / 884.417 Weight last 48 hrs Weight 42.91 kg Weight 41.912 kg Physical Exam Narrative: Sitting up in bed. Const: COMMON NORMALS: patient oriented x3 and alert GENERAL APPEARANCE: cooperative ORIENTATION/CONSCIOUSNESS: Yes awake HENMT: COMMON NORMALS: oropharynx normal Neck/C-Spine: COMMON NORMALS: no JVD Resp: AUSCULTATION: wheezes and diminished lung sounds Cardio: COMMON NORMALS: no JVD, regular rhythm, S1 normal heart sound present, S2 normal heart sound present and No murmurs present (Cardio) RHYTHM: regular rhythm HEART SOUNDS: S1 normal heart sound present and S2 normal heart sound present GI: COMMON NORMALS: Normal to inspection, nondistended, normoactive bowel sounds present, Soft to palpation and non-tender PALPATION: Yes Soft to palpation Extremity: COMMON NORMALS: no joint enlargement and no pedal edema Neuro: COMMON NORMALS: patient oriented x3 and moves all extremities SENSORIUM/ORIENTATION: Yes alert Skin: COMMON NORMALS: no rashes or lesions noted GENERAL SKIN EXAM: no rashes or lesions noted A&P Assessment and plan (1) Acute respiratory failure with hypoxia and hypercapnia: (2) Acute exacerbation of chronic obstructive pulmonary disease (COPD): (3) Pneumonia: (4) NSTEMI (non-ST elevated myocardial infarction): (5) Protein-calorie malnutrition, severe: (6) Cachexia: Plan Acute hypoxic hypercarbic respiratory failure: Reviewed vitals, ABG, lactic acid, procalcitonin, TSH, troponin series. Interpretation EKG with sinus tachycardia. No evidence of acute PA. Weaned off BiPAP to nasal cannula for now. Continue BiPAP support as needed. Continue oxygen support, wean off as tolerating. Reviewed CTA. Discussed with radiologist. Discussed results with him, with regards to finding of PE, discussed treatment with anticoagulation, risks and benefits of treatment. Transition to oral anticoagulation with discharge. Addition discussed opacification of trachea, concern for aspiration, aspiration bronchitis, peribronchial inflammation. Aspiration pneumonitis and pneumonia. He does state he chokes up with liquids. Noted tachycardia. Afebrile. Increased oxygen requirement. Continue cefepime. Requesting ST evaluation, MBS. Dysphagia diet for now with minced and moist, mildly thickened liquids. Aspiration precautions. Discussed with nursing staff. Continue treatment of severe COPD exacerbation with dyspnea,, diminished air entry, wheezing, hypercapnic respiratory acidosis, continues to have wheezing, diminished air entry. Continue antibiotic, continue IV steroid Solu-Medrol, monitor for risk of hyperglycemia, hypertension, gastritis, encephalopathy. Obtain MRSA PCR. Discussed with transplant case manager. Stop Precedex drip. Transfer out of ICU. Severe protein calorie malnutrition, cachexia, BMI 15.9, has been NPO. Start oral intake. Aspiration precautions. Add protein shakes. ? NSTEMI, type I versus type II no chest pain, serial EKGs consult troponins, telemetry monitoring, cardiac echo Attestations Medical Necessity Statement*: Continue admission for assessment management of hypoxic and hypercapnic respiratory failure, PE, severe COPD exacerbation. Coding Level of Care Code Critical Care >/= 30 minutes Critical care time (in minutes): 35 The high probability of a clinically significant, sudden or life threatening deterioration, as referenced in this documentation, required my full and direct attention, intervention and personal management. The critical care time shown is in addition to time spent performing any reported separately billable procedures and includes the following: [x] Data and vital sign review and interpretation [x] Patient assessment, examination and intervention [x] Medication orders and management [x] Patient/Family updates as able [x] Care Coordination and Documentation. Diagnoses Acute respiratory failure with hypoxia and hypercapnia J96.01; J96.02 Acute exacerbation of chronic obstructive pulmonary disease (COPD) J44.1 Pneumonia J18.9 NSTEMI (non-ST elevated myocardial infarction) I21.4 Protein-calorie malnutrition, severe E43 Cachexia R64
[2023-12-09] MEDS: topiramate 100 mg Tablet PO (21:08)
[2023-12-09] MEDS: trazodone 100 mg Tablet PO (21:08)
[2023-12-10] VITALS (10 sets, daily range): BP systolic 104–150; BP diastolic 54–77; PULSE 96–120; RESP 16–19; TEMP 36.3–36.8; O2SAT 92–98
[2023-12-10] MEDS: methylPREDNISolone sod succ 40 mg/mL INJ IVP ×4 (00:05→22:16)
[2023-12-10] MEDS: enoxaparin 40 mg/0.4 mL Syringe SUBCUT ×2 (02:17→13:57)
[2023-12-10] MEDS: pantoprazole 40 mg SDV IVP (02:17)
[2023-12-10] MEDS: cefepime 1,000 MG in sodium chloride 0.9% (plus) 50 ML 100 MG IV ×2 (02:17→13:57)
[2023-12-10] MEDS: vancomycin 750 MG in sodium chloride 0.9% 250 ML 250 MG IV (02:45)
[2023-12-10 05:47] LABS: Basophils % 0.2 %; Lymphocytes # 0.4 10^3/uL (0.8-4.8); Lymphocytes % 4.9 %; Mean Corpuscular Hemoglobin 29.5 pg (27-33); Mean Corpuscular Volume 98.5 fl (82-101); Mean Platelet Volume 10.2 fL (7.4-10.4); Monocytes # 0.6 10^3/uL (0.2-0.9); Monocytes % 7.3 %; Neutrophils # 7.64 10^3/uL (1.8-7.7); Neutrophils % 87.1 %; Nucleated Red Blood Cells % 0 %; Platelet Count 264 10^3/cmm (157-399); Red Blood Count 3.96 10^6/uL (3.85-5.65); Red Cell Distribution Width 12.1 % (12.1-15.1); White Blood Count 8.77 10^3/uL (3.29-11.43)
[2023-12-10 06:11] LABS: Anion Gap 7.5 (5-19); Blood Urea Nitrogen 17 mg/dL (8-23); Calcium 9.2 mg/dL (8.5-10.5); Carbon Dioxide 35 mmol/L (22-29); Chloride 105 mmol/L (98-107); Creatinine Clr Calc Pharmacy 57.7169; Glomerular Filtration Rate 96.4 mL/min (90-130); Glucose 141 mg/dL (65-115); Osmolality Calculated 300 mOsm/kg (285-295); Potassium 4.5 mmol/L (3.5-5.1); Sodium 143 mmol/L (136-145)
[2023-12-10] MEDS: ipratropium-albuterol 3 mL Neb INHALATION ×4 (07:38→20:52)
[2023-12-10] MEDS: budesonide 0.5 mg/2 mL Neb INHALATION ×2 (07:38→20:53)
[2023-12-10] MEDS: aspirin 81 mg EC Tablet PO (08:33)
[2023-12-10] MEDS: topiramate 100 mg Tablet PO (20:13)
[2023-12-10] MEDS: trazodone 100 mg Tablet PO (20:14)
--- NOTE | 2023-12-10 21:50 | P.PN_ITS ---
Subjective 2 Subjective: He is feeling minimally better. Still requiring oxygen, wears not normally oxygen during the day, only at night. Having cough, producing some phlegm. No chest pain. No hemoptysis. Vitals/I&O/Wt Last Vital Signs Temp 98.2 F 12/10/23 19:44 Pulse 115 H 12/10/23 20:40 Resp 16 12/10/23 20:40 BP 128/54 12/10/23 19:44 Pulse Ox 97 12/10/23 20:40 O2 Del Method Nasal Cannula 12/10/23 20:40 O2 Flow Rate 2 12/10/23 20:40 FiO2 30 12/09/23 07:41 12/10/23 12/10/23 12/10/23 06:59 14:59 22:59 Intake Total 300 / 1424.417 650 / 650 240 / 890 Output Total 250 / 250 Balance 300 / 1174.417 650 / 650 -10 / 640 Weight last 48 hrs Weight 45.541 kg Weight 42.91 kg Weight 41.912 kg Physical Exam 2 Narrative: Sitting up in bed. Const: COMMON NORMALS: patient oriented x3 and alert GENERAL APPEARANCE: c ooperative ORIENTATION/CONSCIOUSNESS: Yes awake HENMT: COMMON NORMALS: oropharynx normal Neck/C-Spine: COMMON NORMALS: no JVD Resp: AUSCULTATION: wheezes (Persistent wheezing) and diminished lung sounds Cardio: COMMON NORMALS: no JVD, regular rhythm, S1 normal heart sound present, S2 normal heart sound present and No murmurs present (Cardio) RHYTHM: regular rhythm HEART SOUNDS: S1 normal heart sound present and S2 normal heart sound present GI: COMMON NORMALS: Normal to inspection, nondistended, normoactive bowel sounds present, Soft to palpation and non-tender PALPATION: Yes Soft to palpation Extremity: COMMON NORMALS: no joint enlargement and no pedal edema Neuro: COMMON NORMALS: patient oriented x3 and moves all extremities S ENSORIUM/ORIENTATION: Yes alert Skin: COMMON NORMALS: no rashes or lesions noted GENERAL SKIN EXAM: no rashes or lesions noted Data 12/10/23 05:18 12/10/23 05:18 A&P Assessment and plan (1) Acute respiratory failure with hypoxia and hypercapnia: (2) Acute exacerbation of chronic obstructive pulmonary disease (COPD): (3) Pneumonia: (4) NSTEMI (non-ST elevated myocardial infarction): (5) Protein-calorie malnutrition, severe: (6) Cachexia: Plan Acute hypoxic hypercarbic respiratory failure: Persistent wheezes, somewhat decreased air entry. Severe COPD exacerbation with aspiration bronchitis and pneumonitis. As well as PE. Reviewed vitals, CBC, BMP, reviewed echocardiogram. Normal EF. Mild MVR. No RV strain. Continue anticoagulation. Transition to oral anticoagulant at discharge. Will increase Solu-Medrol dose to 40 mg every 6 hours. Continue cefepime, vancomycin. Reviewed MRSA PCR, not back yet. Sputum culture not yet collected. Reviewed speech therapy note, dysphagia diet minced and moist, regular liquids. Changed liquids to thin. Awaiting additional assessment with MBS for aspiration/dysphagia. Reinforced with him aspiration precautions. Continue to monitor for risk of encephalopathy with cefepime. Continue antibiotic, continue IV steroid Solu-Medrol, monitor for risk of hyperglycemia, hypertension, gastritis, encephalopathy. Severe protein calorie malnutrition, cachexia, BMI 15.9, has been NPO. Start oral intake. Aspiration precautions. Add protein shakes. Suspicious lung nodule in right upper lobe: Previously groundglass, currently appearing more solid. He states he is aware and that he is being worked up for lung cancer, follows with a casing running machine tender in the office. Continue follow-up. ? NSTEMI, type I versus type II no chest pain, serial EKGs consult troponins, telemetry monitoring, cardiac echo dyspnea, productive cough. Attestations 2 Medical Necessity Statement*: Continue admission for assessment management of hypoxic and hypercapnic respiratory failure, PE, severe COPD exacerbation. and High MDM includes described risk of complication, morbidity or mortality of management as documented Diagnoses Acute respiratory failure with hypoxia and hypercapnia J96.01; J96.02 Acute exacerbation of chronic obstructive pulmonary disease (COPD) J44.1 Pneumonia J18.9 NSTEMI (non-ST elevated myocardial infarction) I21.4 Protein-calorie malnutrition, severe E43 Cachexia R64
[2023-12-11] VITALS (13 sets, daily range): BP systolic 106–140; BP diastolic 60–71; PULSE 82–119; RESP 17–20; TEMP 36.4–36.9; O2SAT 92–98
[2023-12-11] MEDS: enoxaparin 40 mg/0.4 mL Syringe SUBCUT ×2 (02:44→14:16)
[2023-12-11] MEDS: pantoprazole 40 mg SDV IVP (02:44)
[2023-12-11] MEDS: cefepime 1,000 MG in sodium chloride 0.9% (plus) 50 ML 100 MG IV ×2 (02:44→14:16)
[2023-12-11] MEDS: vancomycin 750 MG in sodium chloride 0.9% 250 ML 250 MG IV (03:20)
[2023-12-11] MEDS: methylPREDNISolone sod succ 40 mg/mL INJ IVP ×4 (03:21→21:02)
[2023-12-11 06:01] LABS: Basophils % 0.4 %; Lymphocytes # 0.5 10^3/uL (0.8-4.8); Lymphocytes % 4.9 %; Mean Corpuscular HGB Conc 29.8 g/dL (30-55); Mean Corpuscular Hemoglobin 29.8 pg (27-33); Mean Corpuscular Volume 100.3 fl (82-101); Mean Platelet Volume 10.5 fL (7.4-10.4); Monocytes # 0.4 10^3/uL (0.2-0.9); Neutrophils # 9.75 10^3/uL (1.8-7.7); Neutrophils % 88.8 %; Nucleated Red Blood Cells % 0 %; Platelet Count 284 10^3/cmm (157-399); Red Blood Count 3.99 10^6/uL (3.85-5.65); Red Cell Distribution Width 12.5 % (12.1-15.1); White Blood Count 10.98 10^3/uL (3.29-11.43)
[2023-12-11 08:18] LABS: Anion Gap 10.5 (5-19); Blood Urea Nitrogen 22 mg/dL (8-23); Calcium 9.6 mg/dL (8.5-10.5); Carbon Dioxide 32 mmol/L (22-29); Chloride 105 mmol/L (98-107); Creatinine Clr Calc Pharmacy 51.0482; Glomerular Filtration Rate 84.2 mL/min (90-130); Glucose 130 mg/dL (65-115); Osmolality Calculated 301 mOsm/kg (285-295); Potassium 4.5 mmol/L (3.5-5.1); Sodium 143 mmol/L (136-145)
[2023-12-11] MEDS: ipratropium-albuterol 3 mL Neb INHALATION ×4 (08:21→20:16)
[2023-12-11] MEDS: budesonide 0.5 mg/2 mL Neb INHALATION ×2 (08:21→20:16)
[2023-12-11] MEDS: aspirin 81 mg EC Tablet PO (09:02)
--- NOTE | 2023-12-11 20:35 | P.PN_ITS ---
Subjective 2 Subjective: He is feeling about the same as yesterday, states so-so . Not worse. Still wheezing. He reports he is doing okay with current diet subjectively, he did not notice additional cough with food or drink. Vitals/I&O/Wt Last Vital Signs Temp 97.6 F 12/11/23 20:00 Pulse 119 H 12/11/23 20:18 Resp 20 H 12/11/23 20:18 BP 140/71 12/11/23 20:00 Pulse Ox 96 12/11/23 20:18 O2 Del Method Nasal Cannula 12/11/23 20:18 O2 Flow Rate 2 12/11/23 20:18 FiO2 30 12/09/23 07:41 12/11/23 12/11/23 12/11/23 06:59 14:59 22:59 Intake Total 300 / 1430 721.667 / 721.667 408.333 / 1130.000 Output Total 275 / 525 250 / 250 Balance 25 / 905 471.667 / 471.667 408.333 / 880.000 Weight last 48 hrs Weight 45.314 kg Weight 45.541 kg Physical Exam 2 Narrative: Sitting up in bed. Const: COMMON NORMALS: patient oriented x3 and alert GENERAL APPEARANCE: c ooperative ORIENTATION/CONSCIOUSNESS: Yes awake HENMT: COMMON NORMALS: oropharynx normal Neck/C-Spine: COMMON NORMALS: no JVD Resp: AUSCULTATION: wheezes (Persistent wheezing) and diminished lung sounds Cardio: COMMON NORMALS: no JVD, regular rhythm, S1 normal heart sound present, S2 normal heart sound present and No murmurs present (Cardio) RHYTHM: regular rhythm HEART SOUNDS: S1 normal heart sound present and S2 normal heart sound present GI: COMMON NORMALS: Normal to inspection, nondistended, normoactive bowel sounds present, Soft to palpation and non-tender PALPATION: Yes Soft to palpation Extremity: COMMON NORMALS: no joint enlargement and no pedal edema Neuro: COMMON NORMALS: patient oriented x3 and moves all extremities S ENSORIUM/ORIENTATION: Yes alert Skin: COMMON NORMALS: no rashes or lesions noted GENERAL SKIN EXAM: no rashes or lesions noted Data 12/11/23 04:50 12/11/23 07:45 A&P Assessment and plan (1) Acute respiratory failure with hypoxia and hypercapnia: (2) Acute exacerbation of chronic obstructive pulmonary disease (COPD): (3) Pneumonia: (4) NSTEMI (non-ST elevated myocardial infarction): (5) Protein-calorie malnutrition, severe: (6) Cachexia: Plan Acute hypoxic hypercarbic respiratory failure: Without further improvement, persistent wheezes, somewhat decreased air entry. Severe COPD exacerbation with aspiration bronchitis and pneumonitis. As well as PE. Discussed with him for now we will continue without de-escalation on IV steroids. Risk of hyperglycemia, hypertension, acute encephalopathy, gastritis, other complications, monitor for changes. Reviewed Accu-Cheks. Reviewed CBC, BMP. Reviewed MRSA PCR, not collected, requesting to collect MRSA. Continue cefepime and vancomycin for now. Sputum culture not yet collected. Pending assessment by MBS. Continue dysphagia diet, aspiration precautions discussed with him again. Continue to monitor for risk of encephalopathy with cefepime. PE: Continue Lovenox, reviewed hemoglobin, noted without decrease. He has not noticed any bleeding, reviewed platelets, WNL. Discussed with him regarding medication options, risks, will transition to Eliquis. Severe protein calorie malnutrition, cachexia, BMI 15.9, has been NPO. Start oral intake. Aspiration precautions. Add protein shakes. Suspicious lung nodule in right upper lobe: Previously groundglass, currently appearing more solid. He states he is aware and that he is being worked up for lung cancer, follows with a fiberglass auto body repairer in the office. Continue follow-up. ? NSTEMI, type I versus type II no chest pain, serial EKGs consult troponins, telemetry monitoring, cardiac echo dyspnea, productive cough. Attestations 2 Medical Necessity Statement*: Continue admission for assessment management of hypoxic and hypercapnic respiratory failure, PE, severe COPD exacerbation. and High MDM includes described risk of complication, morbidity or mortality of management as documented Diagnoses Acute respiratory failure with hypoxia and hypercapnia J96.01; J96.02 Acute exacerbation of chronic obstructive pulmonary disease (COPD) J44.1 Pneumonia J18.9 NSTEMI (non-ST elevated myocardial infarction) I21.4 Protein-calorie malnutrition, severe E43 Cachexia R64
[2023-12-11] MEDS: polyethylene glycol 3350 Pkt 17 gm PO (21:02)
[2023-12-11] MEDS: topiramate 100 mg Tablet PO (21:03)
[2023-12-11] MEDS: benzonatate 100 mg Capsule PO (21:03)
[2023-12-11] MEDS: trazodone 100 mg Tablet PO (21:03)
[2023-12-12] VITALS (13 sets, daily range): BP systolic 104–131; BP diastolic 58–74; PULSE 90–108; RESP 15–20; TEMP 36.4–36.8; O2SAT 95–99
[2023-12-12 02:15] LABS: Basophils # 0.1 10^3/uL (0.0-0.1); Basophils % 0.9 %; Eosinophils # 0.1 10^3/uL (0.0-0.8); Eosinophils % 0.9 %; Hematocrit 43.5 % (37-53); Lymphocytes # 0.8 10^3/uL (0.8-4.8); Lymphocytes % 5.1 %; Mean Corpuscular HGB Conc 29.7 g/dL (30-55); Mean Corpuscular Hemoglobin 29.6 pg (27-33); Mean Corpuscular Volume 99.8 fl (82-101); Mean Platelet Volume 9.7 fL (7.4-10.4); Monocytes # 0.6 10^3/uL (0.2-0.9); Monocytes % 4.1 %; Neutrophils # 11.99 10^3/uL (1.8-7.7); Neutrophils % 79.8 %; Nucleated Red Blood Cells % 0 %; Platelet Count 283 10^3/cmm (157-399); Red Blood Count 4.36 10^6/uL (3.85-5.65); Red Cell Distribution Width 12.5 % (12.1-15.1); White Blood Count 15.02 10^3/uL (3.29-11.43)
[2023-12-12] MEDS: enoxaparin 40 mg/0.4 mL Syringe SUBCUT ×2 (02:17→16:00)
[2023-12-12] MEDS: cefepime 1,000 MG in sodium chloride 0.9% (plus) 50 ML 100 MG IV ×2 (02:17→15:59)
[2023-12-12] MEDS: pantoprazole 40 mg SDV IVP (02:18)
[2023-12-12 02:31] LABS: Anion Gap 11.6 (5-19); Blood Urea Nitrogen 22 mg/dL (8-23); Calcium 9.8 mg/dL (8.5-10.5); Carbon Dioxide 30 mmol/L (22-29); Chloride 102 mmol/L (98-107); Creatinine Clr Calc Pharmacy 57.4292; Glomerular Filtration Rate 96.4 mL/min (90-130); Glucose 130 mg/dL (65-115); Osmolality Calculated 293 mOsm/kg (285-295); Potassium 4.6 mmol/L (3.5-5.1); Sodium 139 mmol/L (136-145); Vancomycin Trough < 4.0 ug/mL (10-15)
[2023-12-12] MEDS: vancomycin 1,000 MG in sodium chloride 0.9% 250 ML 250 MG IV ×2 (03:44→16:37)
[2023-12-12] MEDS: methylPREDNISolone sod succ 40 mg/mL INJ IVP ×3 (03:45→18:05)
[2023-12-12] MEDS: budesonide 0.5 mg/2 mL Neb INHALATION (07:43)
[2023-12-12] MEDS: ipratropium-albuterol 3 mL Neb INHALATION (07:43)
--- NOTE | 2023-12-12 08:30 | FL_ITS ---
WS: [id number] MODIFIED BARIUM SWALLOW HISTORY: Oropharyngeal dysphagia FLUOROSCOPY TIME: 2min [id number] # of spot films: 1 Modified barium swallow was performed by the speech pathologist. Fluoroscopy was provided with the pa tient in a lateral projection. Multiple food consistencies were provided. Patient swallowed all food consistencies without difficulty. There was laryngeal penetration, much mo re significant with thin liquids thin and nectar consistency. No aspiration. Barium tablet swallowed without difficulty. FL/FL barium swallow modifd [id number] IMPRESSION: 1. Laryngeal penetration but improved with thicker liquids. No aspiration. Please see speech therapist report also for recommendations.
--- NOTE | 2023-12-12 09:24 | PC.CHAP ---
Pastoral Care Encounter/Spiritual Assessment Type of Contact [] Declined security flex utility officer visit [] Patient/Family/Request visit [] Outpatient visit [] Follow-up visit [] Physician referral [] Code/Alert [x] Routine visit [] Staff referral [] Actively dying [] Patient sleeping [] Family support [] [] Out of room [] Palliative care [] [] Receiving care in room [] Pre-surgical visit [] Trauma [] Long length of stay [] ICU visit [] Other: Relational/Emotional Strength [] Patient feels connected with others/family/visitors/staff [] Distress [] Loneliness/isolation [] Abandonment Spirituality of Patient [x] Person of Stephanie [] Attends Oriental Orthodox of their Stephanie [x] Believes in Prayer [] Reads Bible or Adventism materials [] There are Spiritual issues to be addressed Detention Sergeant Interventions [x] Prayer [x] Active listening [] Non-anxious presence [] Spiritual/emotional support [] Crisis/trauma care [] Spiritual counseling [] Bereavement support [] Provided bereavement packet [x] Provided Bible/devotional materials [] Provided toy/stuffed animal, coloring book to patient or family member [] Provided Communion [] Anointing/[place] [] Salvation [x] Completed spiritual assessment [] Other: Impact on Illness or Injury [] Angry [] Fearful [] Anxious [] Often cries [] Exhaustion [] Unable to work [] Unable to attend buddhist [] Unable to walk/stand [] Unable to read [] Unable to drive [] Unable to eat/drink [] Unable to sleep [] Unable to be with family [] Patient intubated [] Other: Summary Time spent with patient 5 min
[2023-12-12] MEDS: aspirin 81 mg EC Tablet PO (10:02)
[2023-12-12 11:40] LABS: Estmated Average Glucose 111; Hemoglobin A1C 5.5 % (4.0-6.0)
[2023-12-12 11:46] LABS: Chol HDL Ratio 2.95 mg/dL (1.0-5.00); Cholesterol 171 mg/dL (0-200); HDL Cholesterol 58 mg/dL (60-100); Iron 82 ug/dL (59-158); LDL Cholesterol Calculated 94 mg/dL (50-129); Percent Saturation 35.9 % (20-50); Total Iron Binding Capacity 228 mcg/dl; Triglycerides 95 mg/dL (0-150); Unsaturated Iron Binding 146 ug/dL (112-347); VLDL Cholestrol Calculation 19 mg/dL (0-30); Vitamin B12 759 pg/mL (232-1245)
--- NOTE | 2023-12-12 11:57 | PC.SOCIAL ---
IMM Update pg 2 of IMM updated and reviewed w/ patient. Copy provided and copy dated, initialed and placed in chart.
[2023-12-12] MEDS: guaiFENesin-dextromethorphan UDC 10 mL 5 ML PO ×2 (12:15→18:04)
--- NOTE | 2023-12-12 15:40 | P.PN_ITS ---
Subjective 2 Subjective: Hospital course, labs appreciated. Laying comfortably in bed. States breathing is stable. States breathing as well as increased at home. Currently on 2 L of oxygen supplementation saturating more than 95%. Has remained hemodynamically stable and afebrile. Vitals/I&O/Wt Last Vital Signs Temp 98.0 F 12/12/23 11:59 Pulse 108 H 12/12/23 14:09 Resp 18 12/12/23 14:09 BP 131/63 12/12/23 11:59 Pulse Ox 98 12/12/23 14:09 O2 Del Method Nasal Cannula 12/12/23 14:09 O2 Flow Rate 2 12/12/23 14:09 FiO2 30 12/09/23 07:41 12/12/23 12/12/23 12/12/23 06:59 14:59 22:59 Intake Total 300 / 1550.000 360 / 360 Output Total 400 / 850 1200 / 1200 Balance -100 / 700.000 -840 / -840 Weight last 48 hrs Weight 44.622 kg Weight 45.314 kg Physical Exam 2 Narrative: Sitting up in bed. Const: COMMON NORMALS: no acute distress, patient oriented x3 and alert G ENERAL APPEARANCE: cooperative, ill appearing and frail appearing O RIENTATION/CONSCIOUSNESS: Yes awake OTHER: Cachexia, evidence of muscle wasting, bilateral temporal muscle wasting, bilateral clavicular fat pad loss, bilateral rib fat pad loss, muscle wasting of bilateral arms bilateral thighs HENMT: COMMON NORMALS: normocephalic and oropharynx normal HEAD & SCALP: n ormocephalic Eye: COMMON NORMALS: Equal, round and reactive pupils present and EOMs intact bilaterally PUPIL: Yes Equal, round and reactive pupils present Neck/C-Spine: COMMON NORMALS: no JVD Resp: COMMON NORMALS: normal respiratory effort, No retractions and No use of accessory muscles AUSCULTATION: crackles, wheezes (Persistent wheezing) and diminished lung sounds OTHER: Bilateral bronchial breath sounds all over lung garcia with rhonchi present all over lung garcia more so expiratory left more than right, decreased air entry all over lung Cardio: COMMON NORMALS: no JVD, regular rate, regular rhythm, S1 normal heart sound present, S2 normal heart sound present and No murmurs present (Cardio) RATE: regular rate and tachycardic RHYTHM: regular rhythm HEART SOUNDS: S1 normal heart sound present and S2 normal heart sound present GI: COMMON NORMALS: Normal to inspection, nondistended, normoactive bowel sounds present, Soft to palpation and non-tender PALPATION: Yes Soft to palpation Extremity: COMMON NORMALS: no joint enlargement, no calf tenderness and no pedal edema Neuro: COMMON NORMALS: patient oriented x3, CN's II-XII intact bilaterally and moves all extremities SENSORIUM/ORIENTATION: Yes alert Psych: COMMON NORMALS: mental status grossly normal Skin: COMMON NORMALS: no rashes or lesions noted GENERAL SKIN EXAM: no rashes or lesions noted Data 12/12/23 02:06 12/12/23 02:06 A&P Assessment and plan (1) Acute respiratory failure with hypoxia and hypercapnia: (2) Acute exacerbation of chronic obstructive pulmonary disease (COPD): (3) Pulmonary embolism: (4) Pneumonia: (5) NSTEMI (non-ST elevated myocardial infarction): (6) Protein-calorie malnutrition, severe: (7) Cachexia: Plan Acute hypoxic hypercarbic respiratory failure: In setting of COPD exacerbation. Patient does seem to have severe COPD. Patient states cough gets worse with nebulization treatment. He does better with inhalation treatment. Stop DuoNeb every 6 hour, Pulmicort twice daily. Switch to Combivent every 6 hours. Will plan to discharge patient on Pulmicort inhalation treatment. Wean down Solu-Medrol to 40 mg IV every 12 hourly. Plan to wean further within next 24 hours. Past history of sputum culture positive for haemophilus. Sputum culture not present currently. Continue with IV cefepime and vancomycin for now. Will plan to discharge on oral Levaquin to finish a 7-day course. PE: Continue full dose Lovenox 1 mg/kg body weight every 12 hourly. Hemoglobin stable. Plan to transition to oral Eliquis as per PE protocol on discharge. Severe protein calorie malnutrition: Most likely in setting of severe COPD.. Appreciate speech therapy results. Continue with level 5 dysphagia diet. Appreciate modified barium swallow results. Suspicious lung nodule in right upper lobe: Previously groundglass, currently appearing more solid. He states he is aware and that he is being worked up for lung cancer, follows with a palm and back forger in the office. Continue follow-up. Elevated troponin: Most likely in setting of type II PA. Denies any chest pain. Continue with aspirin 81 mg daily. Check A1c, lipid panel. DNR/DNI Protonix for PUD prophylaxis Full dose Lovenox will be sufficient for DVT prophylaxis. Attestations 2 Medical Necessity Statement*: Requires further hospitalization for management of acute on chronic hypoxic and hypercapnic respiratory failure in setting of COPD exacerbation, pulmonary embolism Diagnoses Acute respiratory failure with hypoxia and hypercapnia J96.01; J96.02 Acute exacerbation of chronic obstructive pulmonary disease (COPD) J44.1 Pulmonary embolism I26.99 Pneumonia J18.9 NSTEMI (non-ST elevated myocardial infarction) I21.4 Protein-calorie malnutrition, severe E43 Cachexia R64
[2023-12-12] MEDS: trazodone 100 mg Tablet PO (20:40)
[2023-12-12] MEDS: topiramate 100 mg Tablet PO (20:40)
[2023-12-12] MEDS: COMBIVENT 1 EACH INHALATION (20:59)
[2023-12-13] VITALS (7 sets, daily range): BP systolic 114–154; BP diastolic 45–75; PULSE 73–104; RESP 17–18; TEMP 36.5–36.6; O2SAT 96–98
[2023-12-13] MEDS: enoxaparin 40 mg/0.4 mL Syringe SUBCUT (01:37)
[2023-12-13] MEDS: pantoprazole 40 mg SDV IVP (01:37)
[2023-12-13] MEDS: cefepime 1,000 MG in sodium chloride 0.9% (plus) 50 ML 100 MG IV (01:39)
[2023-12-13] MEDS: vancomycin 1,000 MG in sodium chloride 0.9% 250 ML 250 MG IV (04:01)
[2023-12-13] MEDS: methylPREDNISolone sod succ 40 mg/mL INJ IVP (05:13)
[2023-12-13 05:29] LABS: Hematocrit 42.9 % (37-53); Mean Corpuscular HGB Conc 29.1 g/dL (30-55); Mean Corpuscular Hemoglobin 29.9 pg (27-33); Mean Corpuscular Volume 102.6 fl (82-101); Mean Platelet Volume 9.6 fL (7.4-10.4); Platelet Count 358 10^3/cmm (157-399); Red Blood Count 4.18 10^6/uL (3.85-5.65); Red Cell Distribution Width 12.4 % (12.1-15.1)
[2023-12-13 05:51] LABS: Magnesium 2.1 mg/dL (1.7-2.3)
[2023-12-13 05:52] LABS: Alanine Aminotransferase 13 U/L (0-41); Albumin Level 2.8 g/dL (3.5-5.2); Alkaline Phosphatase 78 U/L (40-130); Blood Urea Nitrogen 22 mg/dL (8-23); Calcium 9.2 mg/dL (8.5-10.5); Carbon Dioxide 26 mmol/L (22-29); Chloride 105 mmol/L (98-107); Creatinine Clr Calc Pharmacy 58.1693; Globulin 2.9 g/dL (1.3-4.6); Glomerular Filtration Rate 112.5 mL/min (90-130); Glucose 95 mg/dL (65-115); Osmolality Calculated 291 mOsm/kg (285-295); Sodium 139 mmol/L (136-145); Total Bilirubin 0.2 mg/dL (0.15-1.2); Total Protein 5.7 g/dL (6.6-8.7)
[2023-12-13 05:53] LABS: Anion Gap 12.6 (5-19); Aspartate Amino Transferase 13 U/L (0-40); Potassium 4.6 mmol/L (3.5-5.1)
[2023-12-13 06:10] LABS: Folate Level 10.9 ng/mL (4.5-32.2)
[2023-12-13 06:20] LABS: Slide Review Slide Review Perform
[2023-12-13 06:21] LABS: Absolute Neutrophil 12.6 10^3/cmm (1.4-6.5); Absolute Segmented Neutrophil 10.6 10/cmm (1.6-7.1); Band Neutrophils Absolute 2.1 10^3/cmm (0.0-1.2); Eosinophils 0 %; Lymphocytes 8 %; Monocytes Absolute 0.8 10^3/cmm (0.1-0.6); Platelet Estimate Normal (Normal); Segmented Neutrophils 67 %; Total Cells Counted 100 (0-100)
[2023-12-13] MEDS: COMBIVENT 1 EACH INHALATION (07:57)
[2023-12-13] MEDS: guaiFENesin 600 mg Tablet PO (09:42)
[2023-12-13] MEDS: aspirin 81 mg EC Tablet PO (09:42)
[2023-12-13] MEDS: fluticasone nasal spray 16gm Btl 2 SPRAY INTRANASAL (09:42)
--- NOTE | 2023-12-13 10:25 | PM.DCS ---
Discharge Providers Date of Admission: 12/09/23 01:17 Date of Discharge: December 13, 2023 Attending Provider at Admission: George Felipe MD Attending Provider at Discharge: Arvind Butts MD Primary Care Provider: PRABHA Hernandez Diagnoses at Discharge Discharge Diagnosis (1) Acute respiratory failure with hypoxia and hypercapnia: Status: Inactive (2) Acute exacerbation of chronic obstructive pulmonary disease (COPD): Status: Inactive (3) Pulmonary embolism: Status: Acute (4) Pneumonia: Status: Acute (5) NSTEMI (non-ST elevated myocardial infarction): Status: Acute (6) Protein-calorie malnutrition, severe: Status: Acute (7) Cachexia: Status: Acute Reason for Visit Reason for Visit: COPD Brief History: History as per HPI: Naren Pritchard is a 68 year old male with a past medical history of severe COPD, quit smoking 3 days ago, history of CAD, who presents to [facility] due to progressive shortness of breath, productive cough, denies any hemoptysis, no calf pain, no calf swelling but does report increased shortness of breath, shortness of breath with rest, productive cough, fatigue, malaise, he uses 3 L chronically, he was seen at [facility] for acute respiratory distress acute hypoxic respiratory failure secondary to COPD, left hilar infiltrate concerning for pneumonia was given Levaquin DuoNeb, patient refused BiPAP therapy, placed on 4 L, here he is alert oriented x 3, following all commands, I have discussed with him about my concerns for hypercarbic respiratory failure he is agreed to be put on BiPAP therapy, will do CT angiogram of the chest, he reiterates that he is a DNR/DNI he does not want to be resuscitated he does not want to be put on a ventilator, we discussed the morbidity mortality associate with his hypercarbic respiratory failure and the compliance with medical therapy and compliance with BiPAP therapy, we did discuss placing him on a Precedex drip to help with his claustrophobia associate with BiPAP mask, he is agreeable Hospital Course Hospital Course Patient was admitted to the hospital further evaluation and management of acute on chronic hypoxic and hypercapnic respiratory failure in setting of COPD exacerbation with concerns for aspiration pneumonia. His blood cultures and respiratory viral panel negative and negative. He was started on broad-spectrum antibiotics along with inhalation treatment and IV steroids which are being tapered. During hospitalization he underwent modified barium swallow and his consistency of the food was changed accordingly. He responded well to the treatment and has been gradually coming back to his baseline oxygen supplementation though requiring continuous inhalation treatment. He has been discharged in hemodynamically stable condition on oral Augmentin for 5 more days, inhalation treatment to be continued as before with Combivent 4 times a day along with Advair twice daily. He is also being discharged on steroid taper. Discharge instructions were discussed in detail with the patient and all the questions were answered. Physical Exam Narrative: Sitting up in bed. Const: COMMON NORMALS: no acute distress, patient oriented x3 and alert GENERAL APPEARANCE: cooperative, ill appearing and frail appearing ORIENTATION/CONSCIOUSNESS: Yes awake OTHER: Cachexia, evidence of muscle wasting, bilateral temporal muscle wasting, bilateral clavicular fat pad loss, bilateral rib fat pad loss, muscle wasting of bilateral arms bilateral thighs HENMT: COMMON NORMALS: normocephalic and oropharynx normal HEAD & SCALP: normocephalic Eye: COMMON NORMALS: Equal, round and reactive pupils present and EOMs intact bilaterally PUPIL: Yes Equal, round and reactive pupils present Neck/C-Spine: COMMON NORMALS: no JVD Resp: COMMON NORMALS: normal respiratory effort, No retractions and No use of accessory muscles AUSCULTATION: crackles, wheezes (Persistent wheezing) and diminished lung sounds OTHER: Bilateral bronchial breath sounds all over lung garcia with rhonchi present all over lung garcia more so expiratory left more than right, decreased air entry all over lung Cardio: COMMON NORMALS: no JVD, regular rate, regular rhythm, S1 normal heart sound present, S2 normal heart sound present and No murmurs present (Cardio) RATE: regular rate and tachycardic RHYTHM: regular rhythm HEART SOUNDS: S1 normal heart sound present and S2 normal heart sound present GI: COMMON NORMALS: Normal to inspection, nondistended, normoactive bowel sounds present, Soft to palpation and non-tender PALPATION: Yes Soft to palpation Extremity: COMMON NORMALS: no joint enlargement, no calf tenderness and no pedal edema Neuro: COMMON NORMALS: patient oriented x3, CN's II-XII intact bilaterally and moves all extremities SENSORIUM/ORIENTATION: Yes alert Psych: COMMON NORMALS: mental status grossly normal Skin: COMMON NORMALS: no rashes or lesions noted GENERAL SKIN EXAM: no rashes or lesions noted Discharge Data Studies Completed and Pending Completed Studies During Hospitalization Category Date Time Status CT angio chest PE protcl [id number] Stat Cat Scan 12/09/23 02:11 Completed [place] barium swallow modifd [id number] Routine Exams 12/12/23 08:30 Completed CV. echo complete* [id number] Routine Ultrasound 12/09/23 02:11 Completed Pending at discharge Category Date Time Status MAG [Magnesium] AM LABS Lab 12/14/23 04:00 Ordered MAG [Magnesium] AM LABS Lab 12/15/23 04:00 Ordered MRSA [Methicillin Resistant S.aureu] Routine Lab 12/09/23 20:00 Ordered Sputum Culture and Gram Stain Stat Lab 12/09/23 02:11 Uncollected Vancomycin Trough Timed Lab 12/13/23 14:45 Ordered Radiology Impressions Chest CTA 12/09/23 02:11 IMPRESSION: 1. Suggestive of partially occlusive distal segmental pulmonary embolus extending into the subsegmental arteries of the posterior right upper lobe. No evidence of hemodynamic instability. 2. Increasing lung field nodularity, most concerning of which is in the right upper lobe where there has been progression from ground-glass component to solid component, concerning for evolving neoplasm. Recommend pulmonary consultation. 3. Additional predominantly basilar increase in nodularity, nonspecific, may represent infectious, inflammatory etiologies, additionally neoplasm again is not entirely excluded. Correlate with clinical presentation. 4. Multifocal filling defects within the bilateral lung base airways, concerning for aspiration, additionally bronchial wall thickening is noted, suggesting chronic etiology. 5. Additional findings as above. COMMENTS: The presence of pulmonary emphysema on CT is an independent risk factor for lung cancer. In the absence of a history or active diagnosis of lung cancer, it is recommended that this patient with emphysema be evaluated for enrollment in a low dose CT lung cancer screening program. ADDENDUM: 12/09/23 1057 ADDENDUM: The above findings and impression were discussed with Dr. Whalen on 12/09/2023 at 7:36 a.m. Modified Barium Swallow 12/12/23 08:30 IMPRESSION: 1. Laryngeal penetration but improved with thicker liquids. No aspiration. Please see speech therapist report also for recommendations. Laboratory Results WBC 15.80 10^3/uL (3.29-11.43) H 12/13/23 05:07 RBC 4.18 10^6/uL (3.85-5.65) 12/13/23 05:07 Hgb 12.50 g/dL (11.27-16.99) 12/13/23 05:07 Hct 42.9 % (37-53) 12/13/23 05:07 MCV 102.6 fl (82-101) H 12/13/23 05:07 MCH 29.9 pg (27-33) 12/13/23 05:07 MCHC 29.1 g/dL (30-55) L 12/13/23 05:07 RDW 12.4 % (12.1-15.1) 12/13/23 05:07 Plt Count 358 10^3/cmm (157-399) 12/13/23 05:07 MPV 9.6 fL (7.4-10.4) 12/13/23 05:07 Neut % (Auto) 79.8 % 12/12/23 02:06 Lymph % (Auto) Not Reportable 12/13/23 05:07 Millard % (Auto) Not Reportable 12/13/23 05:07 Eos % (Auto) 0.9 % 12/12/23 02:06 Baso % (Auto) 0.9 % 12/12/23 02:06 Neut # (Auto) 11.99 10^3/uL (1.8-7.7) H 12/12/23 02:06 Lymph # (Auto) Not Reportable 12/13/23 05:07 Millard # (Auto) Not Reportable 12/13/23 05:07 Eos # (Auto) 0.1 10^3/uL (0.0-0.8) 12/12/23 02:06 Baso # (Auto) 0.1 10^3/uL (0.0-0.1) 12/12/23 02:06 Nucleated RBC % (auto) 0 % 12/12/23 02:06 Total Counted 100 (0-100) 12/13/23 05:07 Atypical Lymphs % Not Reportable 12/13/23 05:07 Absolute Neutrophils 12.6 10^3/cmm (1.4-6.5) H 12/13/23 05:07 Segmented Neutrophils 67 % 12/13/23 05:07 Abs Segm Neuts (Man) 10.6 10/cmm (1.6-7.1) H 12/13/23 05:07 Band Neutrophils 13.0 % 12/13/23 05:07 Abs Band Neuts (Man) 2.1 10^3/cmm (0.0-1.2) H 12/13/23 05:07 Lymphocytes (Manual) 8 % 12/13/23 05:07 Monocytes (Manual) 5.0 % 12/13/23 05:07 Absolute Monocytes 0.8 10^3/cmm (0.1-0.6) H 12/13/23 05:07 Eosinophils (Manual) 0 % 12/13/23 05:07 Absolute Eosinophils 0.0 10^3/cmm (0.0-0.7) 12/13/23 05:07 Basophils (Manual) 0.0 % 12/13/23 05:07 Absolute Basophils 0.0 10^3/cmm (0.0-0.2) 12/13/23 05:07 Myelocytes 7.0 % 12/13/23 05:07 Nucleated RBCs # 0.0 /100WBC 12/12/23 02:06 Platelet Estimate Normal (Normal) 12/13/23 05:07 Specimen Type Arterial 12/09/23 03:00 Sample Site Brachial, right 12/09/23 03:00 ABG pH 7.27 (7.35-7.45) L 12/09/23 03:00 ABG pCO2 74.5 mmHg (35-45) H* 12/09/23 03:00 ABG pO2 99.9 mmHg (80.0-100.0) 12/09/23 03:00 ABG HCO3 34.1 mmol/L (22-26) H 12/09/23 03:00 ABG Base Excess 4.7 mmol/L (-2.0-2.0) H 12/09/23 03:00 Italo Test Pos 12/09/23 03:00 Hematocrit 40.5 % (42-52) L 12/09/23 03:00 O2 Delivery Device Nc 12/09/23 03:00 O2 Liters/Min 4.0 % 12/09/23 03:00 Cutting Machine Operator Helper ID [email or web address] 12/09/23 03:00 Sodium 139 mmol/L (136-145) 12/13/23 05:07 Potassium 4.6 mmol/L (3.5-5.1) 12/13/23 05:07 Chloride 105 mmol/L (98-107) 12/13/23 05:07 Carbon Dioxide 26 mmol/L (22-29) 12/13/23 05:07 Anion Gap 12.6 (5-19) 12/13/23 05:07 BUN 22 mg/dL (8-23) 12/13/23 05:07 Creatinine 0.7 mg/dL (0.7-1.2) 12/13/23 05:07 GFR Calculation 112.5 mL/min (90-130) 12/13/23 05:07 Glucose 95 mg/dL (65-115) 12/13/23 05:07 Estimat Average Glucose 111 12/12/23 02:06 Hemoglobin A1c 5.5 % (4.0-6.0) 12/12/23 02:06 Calculated Osmolality 291 mOsm/kg (285-295) 12/13/23 05:07 Lactic Acid 2.3 mmol/L (0.5-2.2) H 12/09/23 03:20 Lactic Acid (Sepsis) 2.0 mmol/L (0.5-2.2) 12/09/23 06:55 Calcium 9.2 mg/dL (8.5-10.5) 12/13/23 05:07 Magnesium 2.1 mg/dL (1.7-2.3) 12/13/23 05:07 Iron 82 ug/dL (59-158) 12/12/23 02:06 TIBC 228 mcg/dl 12/12/23 02:06 % Saturation 35.9 % (20-50) 12/12/23 02:06 Unsat Iron Binding 146 ug/dL (112-347) 12/12/23 02:06 Total Bilirubin 0.2 mg/dL (0.15-1.2) 12/13/23 05:07 AST 13 U/L (0-40) 12/13/23 05:07 ALT 13 U/L (0-41) 12/13/23 05:07 Alkaline Phosphatase 78 U/L (40-130) 12/13/23 05:07 Troponin T Baseline 32 ng/L (0-15) H 12/09/23 03:20 Troponin T 120 Minute 30.33 ng/L (0-15) H 12/09/23 05:58 Delta Troponin T -1.67 ABS# (0-10) L 12/09/23 05:58 Troponin T Hi Sens 6Hr 25.15 ng/L (0-15) H 12/09/23 09:09 Troponin T Hi Sens 6Hr Delta -6.85 ng/L (0-12) L 12/09/23 09:09 Total Protein 5.7 g/dL (6.6-8.7) L 12/13/23 05:07 Albumin 2.8 g/dL (3.5-5.2) L 12/13/23 05:07 Globulin 2.9 g/dL (1.3-4.6) 12/13/23 05:07 Triglycerides 95 mg/dL (0-150) 12/12/23 02:06 Cholesterol 171 mg/dL (0-200) 12/12/23 02:06 LDL Cholesterol, Calc 94 mg/dL (50-129) 12/12/23 02:06 Total VLDL Cholesterol 19 mg/dL (0-30) 12/12/23 02:06 HDL Cholesterol 58 mg/dL (60-100) L 12/12/23 02:06 Cholesterol/HDL Ratio 2.95 mg/dL (1.0-5.00) 12/12/23 02:06 Vitamin B12 759 pg/mL (232-1245) 12/12/23 02:06 Folate 10.9 ng/mL (4.5-32.2) 12/13/23 05:07 Procalcitonin 0.89 ng/mL (0-0.5) H 12/09/23 03:20 TSH 0.44 uIU/mL (0.27-4.20) 12/09/23 03:20 Vancomycin Trough < 4.0 ug/mL (10-15) L 12/12/23 02:06 Adenovirus (PCR) Not detected (NOT DETECT) 12/09/23 02:13 C. pneumoniae DNA (PCR) Not detected (NOT DETECT) 12/09/23 02:13 Coronavirus 229E (PCR) Not detected (NOT DETECT) 12/09/23 02:13 Human Metapneumovir PCR Not detected (NOT DETECT) 12/09/23 02:13 Influenza A (H1) PCR Not detected (NOT DETECT) 12/09/23 02:13 Influ A (H1/09) PCR Not detected (NOT DETECT) 12/09/23 02:13 Influenza A (H3) PCR Not detected (NOT DETECT) 12/09/23 02:13 Influenza Type A (PCR) Not detected (NOT DETECT) 12/09/23 02:13 Influenza Type B (PCR) Not detected (NOT DETECT) 12/09/23 02:13 M. pneumoniae (PCR) Not detected (NOT DETECT) 12/09/23 02:13 Parainfluenza 1 (PCR) Not detected (NOT DETECT) 12/09/23 02:13 Parainfluenza 2 (PCR) Not detected (NOT DETECT) 12/09/23 02:13 Parainfluenza 3 (PCR) Not detected (NOT DETECT) 12/09/23 02:13 Parainfluenza 4 (PCR) Not detected (NOT DETECT) 12/09/23 02:13 RSV Type A (PCR) Not detected (NOT DETECT) 12/09/23 02:13 RSV Type B (PCR) Not detected (NOT DETECT) 12/09/23 02:13 Entero/Rhino (PCR) Not detected (NOT DETECT) 12/09/23 02:13 SARS-CoV-2 (PCR) Not detected (NOT DETECT) 12/09/23 02:13 Vitals Last Vital Signs Temp 97.9 F 12/13/23 07:38 Pulse 89 12/13/23 07:58 Resp 18 12/13/23 07:58 BP 126/75 12/13/23 07:38 Pulse Ox 98 12/13/23 07:58 O2 Del Method Nasal Cannula 12/13/23 07:58 O2 Flow Rate 2 12/13/23 07:58 FiO2 30 12/09/23 07:41 Discharge Plan Discharge Patient Disposition: Home Condition: Stable Prescriptions: New benzonatate 100 mg Capsule 100 mg PO TID PRN (Reason: Cough) Qty: 15 0RF prednisone 10 mg tablet See Taper PO DIRECTED Qty: 42 0RF Taper: predniSONE 60-10 60 mg Daily for 2 Days and 0 Hour 50 mg Daily for 2 Days and 0 Hour 40 mg Daily for 2 Days and 0 Hour 30 mg Daily for 2 Days and 0 Hour 20 mg Daily for 2 Days and 0 Hour 10 mg Daily for 2 Days and 0 Hour Rx Instructions: see taper instructions amoxicillin-pot clavulanate 875-125 mg tablet 1 tab PO BID Qty: 10 0RF Eliquis DVT-PE Treat 30D Start 5 mg (74 tabs) tablets,dose pack See Rx Instructions .ROUTE .COMPLEX Qty: 74 0RF Rx Instructions: orally per package directions Advair Diskus 250-50 mcg/dose blister with device 1 inh inhalation BID Qty: 60 0RF Continued albuterol sulfate 2.5 mg /3 mL (0.083 %) solution for nebulization 2.5 mg inhalation Q4H PRN (Reason: shortness of breath or wheezing) Qty: 300 5RF (DME) nebulizers [facility] [place] See Rx Instructions .ROUTE .MEDSUPPLY Qty: 1 0RF Rx Instructions: As directed topiramate 100 mg tablet 100 mg PO .at bedtime Qty: 30 4RF (DME) Disposable nebulizer circuit See Rx Instructions .ROUTE .MEDSUPPLY Qty: 1 0RF Rx Instructions: As directed Trelegy Ellipta 100-62.5-25 mcg blister with device 1 inh inhalation Q24H Qty: 60 5RF guaifenesin 400 mg tablet 400 mg PO DAILY Qty: 30 5RF omeprazole 20 mg capsule,delayed release(DR/EC) 20 mg PO BID Qty: 60 5RF fluticasone propionate [Flonase Allergy Relief] 50 mcg/actuation spray,suspension 2 spray intranasal DAILY 30 Days Qty: 16 3RF Rx Instructions: administer into each nostril albuterol sulfate 90 mcg/actuation HFA aerosol inhaler 1 inh inhalation Q6H PRN (Reason: shortness of breath or wheezing) Qty: 8.5 6RF aspirin 81 mg Tablet,Delayed Release (Dr/Ec) 81 mg PO DAILY cholecalciferol (vitamin D3) [Vitamin D3] 25 mcg (1,000 unit) Capsule 25 mcg PO DAILY sumatriptan succinate 50 mg Tablet 50 mg PO Q3D PRN (Reason: headaches) Rx Instructions: PATIENT TO TAKE ONCE EVERY THREE DAYS trazodone 100 mg tablet 100 - 150 mg PO BEDTIME Combivent Respimat 20-100 mcg/actuation Mist 1 puff INHALATION Q6H [place]-3 350 mg-235 mg- 90 mg-597 mg Capsule,Delayed Release(Dr/Ec) 1 cap PO DAILY Discharge Orders: Discharge Order (Routine); Ordered 12/13/23 Ordered By: Arvind Butts Referrals: Datar,Joaquín Jimenes MD [Physician] - 01/06/24 9:00 am [facility] [Occupational Therapist] - Discharge Diet: As Directed Discharge Activity: Resume usual activity and Increase activity as tolerated Patient Instructions: COPD, Benzonatate (By mouth), Prednisone (By mouth), Amoxicillin/Clavulanate Potassium (By mouth), Budesonide (By breathing), Apixaban (By mouth), Pulmonary Embolism (ED), Opioid Safety Activity Restrictions/Additional Instructions: Dysphagia level 5 moist to minced diet with mildly thickened liquids. Continue with chin tuck for liquid to swallow. Take Augmentin with antibiotic for next 5 days. Take Combivent which is your inhaler 4 times a day along with the Pulmicort which is an inhaler twice daily. Steroid taper as discussed for next 2 to 3 weeks. Eliquis is a blood thinner which is supposed to take 10 mg twice daily for 1 week followed by 5 mg twice daily going forward for next 6 months. Discharge Attestations Time Spent in Discharge Care*: greater than 30 min Specific Discharge Activities: educating patient, discussing with pcp/other providers, discussing with case supervisor/social workers/dc planners, documenting/other paperwork and evaluating patient/reviewing data Status at Discharge: Cognitive status at discharge: cognitively intact, Behavioral status at discharge: cooperative, Functional status at discharge: independent ambulation, Overall status at discharge: patient is progressing back to baseline Quality Metrics Clinical Quality Measures [ No reported AMI, CVA or VTE this stay] Coding Level of Care Code 66042 Total time (in minutes) for Discharge: 70 Diagnoses Acute respiratory failure with hypoxia and hypercapnia J96.01; J96.02 Acute exacerbation of chronic obstructive pulmonary disease (COPD) J44.1 Pulmonary embolism I26.99 Pneumonia J18.9 NSTEMI (non-ST elevated myocardial infarction) I21.4 Protein-calorie malnutrition, severe E43 Cachexia R64
--- NOTE | 2023-12-13 12:45 | PC.NURSE ---
patient verbalized understanding of discharge instructions, home medications, and follow up appointments. patients brother called for ride and stated that they were right around the corner.
== END 2023-12-13 13:20 | disposition home or self-care (01) | DRG 189 ==
LOC: ICU 09:28 → MEDSURG 16:03
PROVIDERS: Internal Medicine; Admitting Provider Family Medicine; PCP Nurse Practitioner; Visit Provider Student in an Organized Health Care Education/Training Program
DX: J96.01 Acute respiratory failure with hypoxia (principal); J18.9 Pneumonia, unspecified organism; I26.99 Other pulmonary embolism without acute cor pulmonale; E43 Unspecified severe protein-calorie malnutrition; J44.0 Chronic obstructive pulmonary disease with (acute) lower respiratory infection; J44.1 Chronic obstructive pulmonary disease with (acute) exacerbation; Z68.1 Body mass index [BMI] 19.9 or less, adult; R64 Cachexia; J96.02 Acute respiratory failure with hypercapnia; I25.10 Atherosclerotic heart disease of native coronary artery without angina pectoris; Z66 Do not resuscitate; Z99.81 Dependence on supplemental oxygen; F17.210 Nicotine dependence, cigarettes, uncomplicated; Z79.82 Long term (current) use of aspirin; R91.1 Solitary pulmonary nodule
CPT/HCPCS: 36415; 36600; 71275; 74230; 80048; 80053; 80061; 80202; 82607; 82746; 82803; 83036; 83540; 83550; 83605; 83735; 84145; 84443; 84484; 85007; 85025; 87486; 87581; 87633; 92610; 92611; 93005; 93306; 94640; 94660; 96372; C9113; J0692; J1650; J2919; J3370; J7050; J7613; J7626; Q9967

== ENCOUNTER 2023-12-23 14:17 | Emergency (ER) | payer OTHER, SELFPAY ==
[2023-12-23 14:18] VITALS: BP 112/56; PULSE 93; RESP 18; TEMP 36.7; O2SAT 95
--- NOTE | 2023-12-23 14:24 | XRR_ITS ---
PROCEDURE INFORMATION: Exam: XR Chest Exam date and time: 12/23/2023 2:30 PM Age: 68 years old Clinical indication: Cough and fever and shortness of breath; Additional info: Fever, cough TECHNIQUE: Imaging protocol: Radiologic exam of the chest. Views: 1 view. COMPARISON: CT angio chest PE protcl [id number] 12/09/2023 5:08 AM FINDINGS: Lungs: Emphysematous changes. No focal consolidation. Pleural spaces: No pleural effusion. No pneumothorax. Heart/Mediastinum: No cardiomegaly. Bones/joints: No acute findings. XR/XR chest 1V portable [id number] IMPRESSION: No acute findings.
--- NOTE | 2023-12-23 14:46 | ED_ITS ---
HPI - SOB/Dyspnea 2 General: Chief Complaint: Shortness of Breath/Dyspnea Stated Complaint: sob Time Seen by Provider: 12/23/23 14:18 History of Present Illness: HPI Narrative: 68-year-old man with a history of COPD, chronic hypoxemic respiratory failure normally on 2 L nasal cannula at night, recently diagnosed lung cancer with planned treatment in the near future who presents by ambulance with shortness of breath. He says he has been feeling bad for couple days now. He thinks he might have pneumonia. He has left pleuritic chest pain. He has been bringing up green sputum he says. He has had increased oxygen requirement. EMS says on room air he was in the upper 70s when they got to his home. No altered mental status. No abdominal pain. No nausea or vomiting. No lower extremity swelling. Review of Systems 2 Narrative: Constitutional symptoms: Negative except as documented in HPI. Skin symptoms: Negative except as documented in HPI. Eye symptoms: Negative except as documented in HPI. ENMT symptoms: Negative except as documented in HPI. Respiratory symptoms: Negative except as documented in HPI. Cardiovascular symptoms: Negative except as documented in HPI. Gastrointestinal symptoms: Negative except as documented in HPI. Genitourinary symptoms: Negative except as documented in HPI. Musculoskeletal symptoms: Negative except as documented in HPI. Neurologic symptoms: Negative except as documented in HPI. Psychiatric symptoms: Negative except as documented in HPI. Endocrine symptoms: Negative except as documented in HPI. PFSH ED 2 PFSH: Medical History History of migraine headaches Vitamin D deficiency Hepatitis C Treatment status unknown Hx of colonic polyps Sessile on colonoscopy 02/16 Depression GERD (gastroesophageal reflux disease) Peptic ulcer disease Gastric ulcer on EGD 02/16 COPD (chronic obstructive pulmonary disease) Surgical History History of colonoscopy with polypectomy 2019 Status post excision of lipoma (~01/2019) Hx of appendectomy Family History Father Tuberculosis Denies family history of Diabetes Cancer Social History Smoking and tobacco/nicotine status: current every day tobacco/nicotine user cigarettes Packs smoked per day: 1.5 Years cigarettes smoked: 44 [ Other cigarette details: started at age 22] Second hand smoke exposure: No Alcohol intake: current Alcohol intake frequency: holidays/special occasions only Substance/Drug Use: unknown Adopted: No Caregiver/support person: No Lives independently: Yes Household members: spouse Housing: House Marital status: service: No Current occupational status: retired Pets and animals: Yes Do you think of yourself as: Straight/Heterosexual Current gender identity: Male Physical Exam 2 Narrative: EXAM NARRATIVE: General: Alert, no acute distress. Skin: Warm, dry. Head: Normocephalic, atraumatic. Neck: Supple, trachea midline. Eye: Extraocular movements are intact. Ears, nose, mouth and throat: Oral mucosa moist. Cardiovascular: Regular rate and rhythm, Normal peripheral perfusion. Respiratory: coarse, scattered wheeze, mild increased wob. tachypnea, breath sounds are equal, Symmetrical chest wall expansion. Gastrointestinal: Soft, Nontender, Non distended, Normal bowel sounds. Musculoskeletal: Normal ROM, no deformity. Neurological: Alert and oriented to person, place, time, and situation, No focal neurological deficit observed. Psychiatric: Cooperative, appropriate mood & affect. Course 2 Vital Signs: Vital signs: Vital Signs Temperature 98.1 F 12/23/23 14:18 Pulse Rate 81 12/23/23 16:36 Respiratory Rate 16 12/23/23 16:36 Blood Pressure 114/59 12/23/23 16:36 Pulse Oximetry 95 12/23/23 16:36 Oxygen Delivery Me thod Nasal Cannula 12/23/23 16:36 Oxygen Flow Rate 2 12/23/23 16:19 MDM - SOB/Dyspnea Medical Decision Making Differential diagnosis for patient with shortness of breath includes but is not limited to and based on the above HPI, review of systems and physical exam: Pneumonia. Bronchitis. Asthma or COPD with acute exacerbation. Acute coronary syndrome / SD. Pulmonary embolism. Anxiety. Congestive heart failure. Viral infections including influenza and Covid-19. Atrial fibrillation. Anxiety. Pleural effusion. Pneumothorax. Workup: Lab work, chest X-ray and EKG ordered to evaluate, rule in and rule out above pathologies Chest x-ray: Flattened diaphragms, emphysematous changes, hyperinflation, no acute process. No infiltrate. No pneumothorax. No cardiomegaly. This was reviewed and interpreted by myself the ER physician. EKG: Time 1527 rate 81. Normal sinus rhythm, No ST-T changes, no ectopy, normal [place] & QRS intervals, This was reviewed and interpreted by myself the ER physician at 1530 Lab Review: Laboratory results were reviewed and interpreted by myself the emergency room physician. Patient has slightly worsening leukocytosis. He has been on steroids recently. Hemoglobin stable at 13.6. BUN and creatinine are 15 and 0.7. No elevation in his LFTs. Troponin is negative. I reviewed the patient's medical record. Reexamination: Patient's breathing has improved some. Still with some mild wheeze but no increased work of breathing. He remains stable on 2 L nasal cannula. When I examined him he only has 1 prong in his nare and his sats are still in the upper 90s. No altered mental status. No focal motor deficits. Assessment and plan: COPD with acute exacerbation Acute bronchitis -2 updrafts, IV methylprednisolone 125 mg and IV doxycycline - Discharged home - Discussed findings and plan with patient. Answered any questions. - All laboratory values were reviewed and interpreted personally by myself, the ER physician - All imaging was reviewed and interpreted personally by myself, the ER physician. - Evaluation and treatment of this problem were appropriate in the emergency setting Lab Data 12/23/23 14:46 12/23/23 14:46 Labs/Radiology: Radiology Impressions Chest X-Ray 12/23/23 14:24 IMPRESSION: No acute findings. Laboratory Results WBC 19.55 10^3/uL (3.29-11.43) H 12/23/23 14:46 RBC 4.56 10^6/uL (3.85-5.65) 12/23/23 14:46 Hgb 13.60 g/dL (11.27-16.99) 12/23/23 14:46 Hct 44.2 % (37-53) 12/23/23 14:46 MCV 96.9 fl (82-101) 12/23/23 14:46 MCH 29.8 pg (27-33) 12/23/23 14:46 MCHC 30.8 g/dL (30-55) 12/23/23 14:46 RDW 12.9 % (12.1-15.1) 12/23/23 14:46 Plt Count 395 10^3/cmm (157-399) 12/23/23 14:46 MPV 9.7 fL (7.4-10.4) 12/23/23 14:46 Neut % (Auto) 78.2 % 12/23/23 14:46 Lymph % (Auto) 12.0 % 12/23/23 14:46 Lyman % (Auto) 7.6 % 12/23/23 14:46 Eos % (Auto) 0.9 % 12/23/23 14:46 Baso % (Auto) 0.3 % 12/23/23 14:46 Neut # (Auto) 15.31 10^3/uL (1.8-7.7) H 12/23/23 14:46 Lymph # (Auto) 2.3 10^3/uL (0.8-4.8) 12/23/23 14:46 Lyman # (Auto) 1.5 10^3/uL (0.2-0.9) H 12/23/23 14:46 Eos # (Auto) 0.2 10^3/uL (0.0-0.8) 12/23/23 14:46 Baso # (Auto) 0.1 10^3/uL (0.0-0.1) 12/23/23 14:46 Nucleated RBC % (auto) 0 % 12/23/23 14:46 Nucleated RBCs # 0.0 /100WBC 12/23/23 14:46 Specimen Type Arterial 12/23/23 14:46 Sample Site Radial, left 12/23/23 14:46 ABG pH 7.42 (7.35-7.45) 12/23/23 14:46 ABG pCO2 57.9 mmHg (35-45) H 12/23/23 14:46 ABG pO2 72.0 mmHg (80.0-100.0) L 12/23/23 14:46 ABG PO2/FiO2 Ratio 0 12/23/23 14:46 ABG HCO3 37.4 mmol/L (22-26) H 12/23/23 14:46 ABG O2 Saturation 95.8 12/23/23 14:46 ABG Base Excess 10.5 mmol/L (-2.0-2.0) H 12/23/23 14:46 Italo Test Pos 12/23/23 14:46 A-a O2 Gradient 7.2 mmHg (5-10) 12/23/23 14:46 Hematocrit 43.0 % (42-52) 12/23/23 14:46 Hgb O2 Saturation 94.0 % (95-100) L 12/23/23 14:46 Carboxyhemoglobin 1.2 %THgb (0.4-20.1) 12/23/23 14:46 Methemoglobin 0.7 % (0.4-1.5) 12/23/23 14:46 Total Hemoglobin 14.0 g/dL (14-18) 12/23/23 14:46 Sodium 144.0 mmol/L (131-143) H 12/23/23 14:46 Potassium 3.5 mmol/L (3.5-5.0) 12/23/23 14:46 Glucose 83.0 mg/dL (70-115) 12/23/23 14:46 Ionized Calcium 1.2 mmol/L (1.1-1.4) 12/23/23 14:46 O2 Delivery Device Nc 12/23/23 14:46 O2 Liters/Min 2.0 % 12/23/23 14:46 FiO2 28.0 % 12/23/23 14:46 Public Safety Director ID glc 12/23/23 14:46 Sodium 143 mmol/L (136-145) 12/23/23 14:46 Potassium 3.7 mmol/L (3.5-5.1) 12/23/23 14:46 Chloride 102 mmol/L (98-107) 12/23/23 14:46 Carbon Dioxide 34 mmol/L (22-29) H 12/23/23 14:46 Anion Gap 10.7 (5-19) 12/23/23 14:46 BUN 15 mg/dL (8-23) 12/23/23 14:46 Creatinine 0.7 mg/dL (0.7-1.2) 12/23/23 14:46 GFR Calculation 112.5 mL/min (90-130) 12/23/23 14:46 Glucose 80 mg/dL (65-115) 12/23/23 14:46 Calculated Osmolality 296 mOsm/kg (285-295) H 12/23/23 14:46 Lactic Acid 1.0 mmol/L (0.5-2.2) 12/23/23 14:46 Calcium 8.7 mg/dL (8.5-10.5) 12/23/23 14:46 Total Bilirubin 0.2 mg/dL (0.15-1.2) 12/23/23 14:46 AST 11 U/L (0-40) 12/23/23 14:46 ALT 17 U/L (0-41) 12/23/23 14:46 Alkaline Phosphatase 95 U/L (40-130) 12/23/23 14:46 Troponin T Baseline 17 ng/L (0-15) H 12/23/23 14:46 C-Reactive Protein 6.1 mg/L (0.0-4.9) H 12/23/23 14:46 NT-Pro-B Natriuret Pep 83 pg/mL (0-125) 12/23/23 14:46 Total Protein 5.8 g/dL (6.6-8.7) L 12/23/23 14:46 Albumin 3.7 g/dL (3.5-5.2) 12/23/23 14:46 Globulin 2.1 g/dL (1.3-4.6) 12/23/23 14:46 All radiology interpretation(s) finalized by discharge Discharge Plan Discharge Patient Disposition: Home Clinical Impression: Acute exacerbation of chronic obstructive airways disease, Acute bronchitis Condition: Stable Prescriptions: New doxycycline hyclate 100 mg capsule 100 mg PO BID 7 Days Qty: 14 0RF prednisone 20 mg tablet 40 mg PO DAILY 5 Days Qty: 10 0RF No Action albuterol sulfate 2.5 mg /3 mL (0.083 %) solution for nebulization 2.5 mg inhalation Q4H PRN (Reason: shortness of breath or wheezing) Qty: 300 5RF (DME) nebulizers Misc See Rx Instructions .ROUTE .MEDSUPPLY Qty: 1 0RF Rx Instructions: As directed topiramate 100 mg tablet 100 mg PO .at bedtime Qty: 30 4RF (DME) Disposable nebulizer circuit See Rx Instructions .ROUTE .MEDSUPPLY Qty: 1 0RF Rx Instructions: As directed Trelegy Ellipta 100-62.5-25 mcg blister with device 1 inh inhalation Q24H Qty: 60 5RF guaifenesin 400 mg tablet 400 mg PO DAILY Qty: 30 5RF omeprazole 20 mg capsule,delayed release(DR/EC) 20 mg PO BID Qty: 60 5RF fluticasone propionate [Flonase Allergy Relief] 50 mcg/actuation spray,suspension 2 spray intranasal DAILY 30 Days Qty: 16 3RF Rx Instructions: administer into each nostril albuterol sulfate 90 mcg/actuation HFA aerosol inhaler 1 inh inhalation Q6H PRN (Reason: shortness of breath or wheezing) Qty: 8.5 6RF aspirin 81 mg Tablet,Delayed Release (Dr/Ec) 81 mg PO DAILY cholecalciferol (vitamin D3) [Vitamin D3] 25 mcg (1,000 unit) Capsule 25 mcg PO DAILY sumatriptan succinate 50 mg Tablet 50 mg PO Q3D PRN (Reason: headaches) Rx Instructions: PATIENT TO TAKE ONCE EVERY THREE DAYS trazodone 100 mg tablet 100 - 150 mg PO BEDTIME Combivent Respimat 20-100 mcg/actuation Mist 1 puff INHALATION Q6H [place]-3 350 mg-235 mg- 90 mg-597 mg Capsule,Delayed Release(Dr/Ec) 1 cap PO DAILY benzonatate 100 mg Capsule 100 mg PO TID PRN (Reason: Cough) Qty: 15 0RF prednisone 10 mg tablet See Taper PO DIRECTED Qty: 42 0RF Taper: predniSONE 60-10 60 mg Daily for 2 Days and 0 Hour 50 mg Daily for 2 Days and 0 Hour 40 mg Daily for 2 Days and 0 Hour 30 mg Daily for 2 Days and 0 Hour 20 mg Daily for 2 Days and 0 Hour 10 mg Daily for 2 Days and 0 Hour Rx Instructions: see taper instructions amoxicillin-pot clavulanate 875-125 mg tablet 1 tab PO BID Qty: 10 0RF Eliquis DVT-PE Treat 30D Start 5 mg (74 tabs) tablets,dose pack See Rx Instructions .ROUTE .COMPLEX Qty: 74 0RF Rx Instructions: orally per package directions Advair Diskus 250-50 mcg/dose blister with device 1 inh inhalation BID Qty: 60 0RF Discharge Orders: Discharge ED (Routine); Ordered 12/23/23 Ordered By: Yari Chester Referrals: Judith Lieberman, RESEARCH LIBRARIAN-C [Primary Care Provider] - 4-7 days Patient Instructions: COPD (Chronic Obstructive Pulmonary Disease) (ED) Activity Restrictions/Additional Instructions: Thank you for choosing [facility] for your healthcare needs today. Please realize this is an emergency room and that we are providing you with a medical screening exam and this may not be complete and all inclusive of all the testing and or work up that you may need to determine your ailment or severity of your illness. You have been screened and evaluated and felt safe for discharge. Health conditions do change or evolve sometimes and as such it is important that you follow up with your Primary Doctor to be re checked, 3-5 days is a general good time frame for follow up. You are always welcome to return to the ED for re assessment if your symptoms are worsening or you have new concerns Coding Level of Care Code ED [employer] for Oli Moise
[2023-12-23 15:01] LABS: ABG PCO2 57.9 mmHg (35-45); ABG PH Result 7.42 (7.35-7.45); Alveolar-Arterial Oxygen Gradi 7.2 mmHg (5-10); Base Excess ABG 10.5 mmol/L (-2.0-2.0); Blood Gas Allen Test Pos; Blood Gas Operator Identificat glc; Blood Gas Sample Site Radial, left; Blood Gas Sample Type Arterial; Carboxyhemoglobin 1.2 %THgb (0.4-20.1); HCO3 ABG 37.4 mmol/L (22-26); Ionized Calcium Level - ABG 1.2 mmol/L (1.1-1.4); Methemoglobin 0.7 % (0.4-1.5); Oxygen Device NC; Oxygen Saturation ABG 95.8; PO2 FiO2 Ratio Arterial Blood 0; Potassium Level - ABG 3.5 mmol/L (3.5-5.0)
[2023-12-23 15:02] LABS: Basophils # 0.1 10^3/uL (0.0-0.1); Basophils % 0.3 %; Eosinophils # 0.2 10^3/uL (0.0-0.8); Eosinophils % 0.9 %; Hematocrit 44.2 % (37-53); Lymphocytes # 2.3 10^3/uL (0.8-4.8); Mean Corpuscular HGB Conc 30.8 g/dL (30-55); Mean Corpuscular Hemoglobin 29.8 pg (27-33); Mean Corpuscular Volume 96.9 fl (82-101); Mean Platelet Volume 9.7 fL (7.4-10.4); Monocytes # 1.5 10^3/uL (0.2-0.9); Monocytes % 7.6 %; Neutrophils # 15.31 10^3/uL (1.8-7.7); Neutrophils % 78.2 %; Nucleated Red Blood Cells % 0 %; Platelet Count 395 10^3/cmm (157-399); Red Blood Count 4.56 10^6/uL (3.85-5.65); Red Cell Distribution Width 12.9 % (12.1-15.1); White Blood Count 19.55 10^3/uL (3.29-11.43)
[2023-12-23] MEDS: methylPREDNISolone sod succ 125 mg/2 mL INJ IVP (15:22)
--- NOTE | 2023-12-23 15:27 | ECG_ITS ---
[facility] Test Date: 2023-12-23 Pat Name: Naren Pritchard Department: Room: Gender: Male Community Representative: : 1955 Requested By: Yari Engel Order Number: [id number] Aaron MD: Garth Glover M.D. Measurements Intervals [place] Rate: 81 P: 71 FL: 157 QRS: 93 QRSD: 81 T: 75 QT: 352 QTc: 409 Interpretive Statements SINUS RHYTHM BORDERLINE RIGHT AXIS DEVIATION [QRS AXIS > 90] Compared to ECG 12/09/2023 09:19:51 Sinus tachycardia no longer present Electronically Signed On 12-23-2023 20:25:41 CDT by Garth Glover M.D. [id number]
[2023-12-23 15:31] LABS: Troponin(5th) Baseline 17 ng/L (0-15)
[2023-12-23 15:39] LABS: Alanine Aminotransferase 17 U/L (0-41); Albumin Level 3.7 g/dL (3.5-5.2); Alkaline Phosphatase 95 U/L (40-130); Anion Gap 10.7 (5-19); Aspartate Amino Transferase 11 U/L (0-40); Blood Urea Nitrogen 15 mg/dL (8-23); C Reactive Protein 6.1 mg/L (0.0-4.9); Calcium 8.7 mg/dL (8.5-10.5); Carbon Dioxide 34 mmol/L (22-29); Chloride 102 mmol/L (98-107); Creatinine Clr Calc Pharmacy 56.9121; Globulin 2.1 g/dL (1.3-4.6); Glomerular Filtration Rate 112.5 mL/min (90-130); Glucose 80 mg/dL (65-115); NT Pro B Type Natriuretic Pept 83 pg/mL (0-125); Osmolality Calculated 296 mOsm/kg (285-295); Potassium 3.7 mmol/L (3.5-5.1); Sodium 143 mmol/L (136-145); Total Bilirubin 0.2 mg/dL (0.15-1.2); Total Protein 5.8 g/dL (6.6-8.7)
[2023-12-23] MEDS: albuterol 2.5 mg/3 mL Neb INHALATION (16:16)
[2023-12-23] MEDS: ipratropium-albuterol 3 mL Neb INHALATION (16:16)
[2023-12-23 16:19] VITALS: PULSE 80; RESP 18; O2SAT 95
--- NOTE | 2023-12-23 16:24 | ECG_ITS ---
[facility] Test Date: 2023-12-23 Pat Name: Naren Pritchard Department: Room: Gender: Male Strategies Analyst: : 1955 Requested By: Yari Engel Order Number: [id number] Aaron MD: Garth Glover M.D. Measurements Intervals [place] Rate: 78 P: 114 SD: 100 QRS: 85 QRSD: 90 T: 55 QT: 353 QTc: 404 Interpretive Statements SINUS RHYTHM WITH SHORT SD INTERVAL Compared to ECG 12/23/2023 15:27:44 Short SD interval now present Electronically Signed On 12-23-2023 20:26:05 CDT by Grath Glover M.D. [id number]
[2023-12-23 16:36] VITALS: BP 114/59; PULSE 81; RESP 16; O2SAT 95
[2023-12-23] MEDS: doxycycline 100 MG in sodium chloride 0.9% (plus) 100 ML IV (16:41)
[2023-12-23 17:08] LABS: Adenovirus Not Detected (NOT DETECT); Chlamydia Pneumoniae Not Detected (NOT DETECT); Coronavirus 229E,HKU1,NL63,OC4 Not Detected (NOT DETECT); Human Metapneumovirus Not Detected (NOT DETECT); Human Rhinovirus/Enterovirus Not Detected (NOT DETECT); Influenza A Not Detected (NOT DETECT); Influenza A H1 Not Detected (NOT DETECT); Influenza A H1-2009 Not Detected (NOT DETECT); Influenza A H3 Not Detected (NOT DETECT); Influenza B Not Detected (NOT DETECT); Mycoplasma Pneumoniae Not Detected (NOT DETECT); Parainfluenza Virus Type 1 Not Detected (NOT DETECT); Parainfluenza Virus Type 2 Not Detected (NOT DETECT); Parainfluenza Virus Type 3 Not Detected (NOT DETECT); Parainfluenza Virus Type 4 Not Detected (NOT DETECT); Respiratory Syncytial Virus A Not Detected (NOT DETECT); Respiratory Syncytial Virus B Not Detected (NOT DETECT); SARS-COV-2 Not Detected (NOT DETECT)
[2023-12-23 17:10] LABS: Troponin 5 2HR 15.02 ng/L (0-15)
[2023-12-23 17:14] LABS: Troponin 5 2HR Delta -1.98 ABS# (0-10)
--- NOTE | 2023-12-23 17:48 | PC.NURSE ---
discharge delayed due to pt needing a ride and having no working numbers in chart. this nurse asked pt for numbers to call and all numbers were out of service.
--- NOTE | 2023-12-23 18:19 | PC.NURSE ---
this nurse spoke to pts when she called to check on pt. she stated someone will come pick pt up.
[2023-12-23 19:44] VITALS: BP 118/62; PULSE 79; RESP 16; TEMP 36.7; O2SAT 97
== END 2023-12-23 19:30 | disposition home or self-care (01) ==
PROVIDERS: Emergency Provider Emergency Medicine; PCP Nurse Practitioner
DX: J44.0 Chronic obstructive pulmonary disease with (acute) lower respiratory infection (principal); J20.9 Acute bronchitis, unspecified; J44.1 Chronic obstructive pulmonary disease with (acute) exacerbation; Z79.82 Long term (current) use of aspirin; Z79.01 Long term (current) use of anticoagulants; Z86.19 Personal history of other infectious and parasitic diseases; F17.210 Nicotine dependence, cigarettes, uncomplicated; D72.829 Elevated white blood cell count, unspecified
CPT/HCPCS: 36415; 36600; 71045; 80051; 80053; 82330; 82805; 83605; 83880; 84484; 85025; 86140; 87486; 87581; 87633; 93005; 94640; 96374; 96375; 99285; J2919; J3490; J7613

== ENCOUNTER → 2024-01-06 08:44 | Outpatient (BNVA) | payer OTHER, SELFPAY | PROVIDERS: PCP Nurse Practitioner; Visit Provider Internal Medicine Pulmonary Disease | DX: Z09 Encounter for follow-up examination after completed treatment for conditions other than malignant neoplasm (principal); R91.1 Solitary pulmonary nodule; I26.93 Single subsegmental thrombotic pulmonary embolism without acute cor pulmonale; J43.8 Other emphysema; J30.9 Allergic rhinitis, unspecified; Z87.891 Personal history of nicotine dependence | CPT/HCPCS: 99214 ==

== ENCOUNTER → 2024-03-13 08:00 | Outpatient (BNVA) | payer MEDICARE, MEDICAID, SELFPAY | PROVIDERS: PCP Nurse Practitioner; Visit Provider Internal Medicine Critical Care Medicine | DX: F17.218 Nicotine dependence, cigarettes, with other nicotine-induced disorders (principal); R91.1 Solitary pulmonary nodule; J43.8 Other emphysema; J96.11 Chronic respiratory failure with hypoxia; Z99.81 Dependence on supplemental oxygen; K21.9 Gastro-esophageal reflux disease without esophagitis; R13.10 Dysphagia, unspecified; E43 Unspecified severe protein-calorie malnutrition; Z71.89 Other specified counseling; Z71.6 Tobacco abuse counseling | CPT/HCPCS: 99214 ==

== ENCOUNTER → 2024-03-21 08:40 | Outpatient (BNVA) | payer OTHER, SELFPAY | PROVIDERS: PCP Nurse Practitioner; Visit Provider Surgery | DX: K21.9 Gastro-esophageal reflux disease without esophagitis (principal); Z86.010 Personal history of colon polyps | CPT/HCPCS: 99214 ==

== ENCOUNTER 2024-04-03 15:46 | Emergency (ER) | payer OTHER, MEDICARE, MEDICAID, SELFPAY ==
--- NOTE | 2024-04-03 15:47 | XRR_ITS ---
PROCEDURE INFORMATION: Exam: XR Chest Exam date and time: 04/03/2024 4:02 PM Age: 68 years old Clinical indication: Pain; Shortness of breath; Angina pectoris; Additional info: Cp TECHNIQUE: Imaging protocol: Radiologic exam of the chest. Views: 1 view. COMPARISON: CR XR chest 1V portable [id number] 12/23/2023 2:30 PM FINDINGS: Lungs: There is no consolidation. Lung volumes are large. Pleural spaces: There is no pleural effusion or pneumothorax. Heart/Mediastinum: Cardiomediastinal contours are unremarkable. Bones/joints: Bones are unremarkable. XR/XR chest 1V portable [id number] IMPRESSION: No acute findings.
--- NOTE | 2024-04-03 15:47 | ECG_ITS ---
[facility] Test Date: 2024-04-03 Pat Name: Naren Pritchard Department: Room: Gender: Male Observer [employer]ing: : 1955 Requested By: Kai Venegas Order Number: [id number] Aaron MD: Garth Glover M.D. Measurements Intervals [place] Rate: 90 P: 85 VA: 164 QRS: 93 QRSD: 86 T: 79 QT: 325 QTc: 400 Interpretive Statements SINUS RHYTHM WITH OCCASIONAL SUPRAVENTRICULAR PREMATURE COMPLEXES POSSIBLE RIGHT ATRIAL ENLARGEMENT [0.25mV P-WAVE] BORDERLINE RIGHT AXIS DEVIATION [QRS AXIS > 90] Compared to ECG 12/23/2023 16:34:09 Short VA interval no longer present Electronically Signed On 04-03-2024 16:39:54 CDT by Garth Glover M.D. [email or web address] [id number]
[2024-04-03 15:56] VITALS: BP 148/80; PULSE 92; TEMP 36.7; O2SAT 94; BMI 17.2
--- NOTE | 2024-04-03 16:01 | ED_ITS ---
HPI - Chest Pain 2 General: Chief Complaint: Shortness of Breath/Dyspnea Stated Complaint: Chest Pain Time Seen by Provider: 04/03/24 15:49 Source: patient and EMS Mode of arrival: EMS Limitations: no limitations History of Present Illness: 68-year-old male states he has been havi ng chest pain since around 10:00 today states has been a sharp pain in his chest some radiation down his arm. He is hypertensive as well. He rates his pain a 0 out of 10 currently did receive nitro aspirin and route that resolved his pain. Denies any fever Related Data Home Medications Medication Instructions Recorded Confirmed sumatriptan succinate 50 mg tablet 50 mg PO Q3D PRN headaches 08/13/19 03/21/24 aspirin 81 mg tablet,delayed 81 mg PO DAILY 11/27/19 03/21/24 release cholecalciferol (vitamin D3) 25 25 mcg PO DAILY 11/27/19 03/21/24 mcg (1,000 unit) capsule (Vitamin D3) omega 3 350 mg-dha 235 mg-epa 90 1 cap PO DAILY 12/09/23 03/21/24 mg-fish oil 597 mg capsule,delay rel ([place]-3) Previous Rx's Medication Instructions Recorded albuterol sulfate 2.5 mg/3 mL 2.5 mg (3 mL) inhalation Q4H PRN 06/08/22 (0.083 %) solution for nebulization shortness of breath or wheezing #300 mL nebulizers #1 ea 06/08/22 omeprazole 20 mg capsule,delayed 20 mg PO BID #60 caps 02/07/23 release fluticasone propionate 50 2 spray intranasal DAILY 30 days 05/11/23 mcg/actuation nasal #16 grams spray,suspension (Flonase Allergy Relief) Disposable nebulizer circuit #1 ea 11/08/23 apixaban 5 mg (74 tabs) tablets in See Rx Instructions PO .COMPLEX 12/13/23 a dose pack (Eliquis DVT-PE Treat #74 ea 30D Start) benzonatate 100 mg capsule 100 mg PO TID PRN Cough #15 caps 12/13/23 guaifenesin 400 mg tablet 400 mg PO DAILY #30 tabs 01/01/24 ipratropium 20 mcg-albuterol 100 1 puff inhalation Q6H #4 grams 01/01/24 mcg/actuation mist for inhalation (Combivent Respimat) budesonide 160 mcg-glycopyr 9 2 inh inhalation BID #10.7 grams 01/06/24 mcg-formot 4.8 mcg/actuation HFA inhaler (Breztri Aerosphere) trazodone 100 mg tablet 100 mg PO BEDTIME #30 tabs 01/06/24 azithromycin 250 mg tablet See Rx Instructions PO .COMPLEX #6 03/13/24 tabs prednisone 10 mg tablet 10 mg PO DAILY #40 tabs 03/13/24 bisacodyl 5 mg tablet,delayed 5 mg PO DAILY #4 tabs 03/21/24 release (Dulcolax (bisacodyl)) magnesium citrate 300 ml PO DAILY PRN constipation 03/21/24 #296 mL albuterol sulfate 90 mcg/actuation 2 inh inhalation Q6H PRN shortness 03/23/24 aerosol inhaler of breath or wheezing #8.5 grams azithromycin 250 mg tablet 250 mg PO .COMPLEX 12 months #30 03/23/24 tabs amlodipine 5 mg tablet (Norvasc) 5 mg PO DAILY #30 tabs 04/03/24 Allergies Allergy/AdvReac Type Severity Reaction Status Date / Time No Known Allergies Allergy Verified 03/21/24 09:02 PFSH ED 2 PFSH: Medical History History of migraine headaches Vitamin D deficiency Hepatitis C Treatment status unknown Hx of colonic polyps Sessile on colonoscopy 02/16 Depression GERD (gastroesophageal reflux disease) Peptic ulcer disease Gastric ulcer on EGD 02/16 COPD (chronic obstructive pulmonary disease) Surgical History History of colonoscopy with polypectomy 2019 Status post excision of lipoma (~01/2019) Hx of appendectomy Family History Father Tuberculosis Denies family history of Diabetes Cancer Social History Smoking and tobacco/nicotine status: current every day tobacco/nicotine user cigarettes Packs smoked per day: 1.5 Years cigarettes smoked: 46 [ Other cigarette details: started at age 22] Second hand smoke exposure: No Alcohol intake: current Alcohol intake frequency: holidays/special occasions only Substance/Drug Use: unknown Adopted: No Caregiver/support person: No Lives independently: Yes Household members: spouse Housing: House Marital status: service: No Current occupational status: retired Pets and animals: Yes Do you think of yourself as: Straight/Heterosexual Current gender identity: Male Physical Exam 2 Const: COMMON NORMALS: no acute distress, patient oriented x3 and healthy appearing HENMT: COMMON NORMALS: normocephalic and atraumatic HEAD & SCALP: n ormocephalic and atraumatic Eye: COMMON NORMALS: Equal, round and reactive pupils present and EOMs intact bilaterally PUPIL: Yes Equal, round and reactive pupils present Neck/C-Spine: COMMON NORMALS: full ROM and supple Chest: COMMONS NORMALS: normal inspection of the chest Resp: COMMON NORMALS: normal respiratory effort and clear to auscultation bilaterally EFFORT & INSPECTION: Yes able to speak in complete sentences A USCULTATION: clear to auscultation bilaterally Cardio: COMMON NORMALS: regular rate, regular rhythm and No murmurs present (Cardio) RATE: regular rate RHYTHM: regular rhythm GI: COMMON NORMALS: Normal to inspection, nondistended, normoactive bowel sounds present, Soft to palpation, non-tender and no masses PALPATION: Yes Soft to palpation Extremity: COMMON NORMALS: normal to inspection and full ROM Neuro: COMMON NORMALS: patient oriented x3, moves all extremities and no focal motor deficits Psych: COMMON NORMALS: mental status grossly normal, Normal thought process present and cooperative THOUGHT PROCESS: Normal thought process present Skin: COMMON NORMALS: no rashes or lesions noted and no wounds GENERAL SKIN EXAM: no rashes or lesions noted Course 2 Vital Signs: Vital signs: Vital Signs Temperature 98.0 F 04/03/24 15:56 Pulse Rate 88 04/03/24 18:45 Respiratory Rate 18 04/03/24 18:45 Blood Pressure 157/77 04/03/24 18:08 Pulse Oximetry 96 04/03/24 18:45 Oxygen Delivery Me thod Nasal Cannula 04/03/24 18:45 Oxygen Flow Rate 2 04/03/24 18:45 MDM - Chest Pain Medical Decision Making Patient presents with chest pain been resolved here his initial repeat troponin is normal he is no signs of dissection or pulmonary embolism here. He feels much improved I did offer him admission he states he wants to go home we will start him on Norvasc he is to monitor his blood pressure we will get him cardiology follow-up he is return if worsening he understands agrees plan Medical Records I reviewed the patient's medical records. Lab Data I reviewed the patient's lab results. 04/03/24 16:11 04/03/24 16:11 Radiology Impressions Chest X-Ray 04/03/24 15:47 IMPRESSION: No acute findings. Laboratory Results WBC 10.08 10^3/uL (3.29-11.43) 04/03/24 16:11 RBC 4.68 10^6/uL (3.85-5.65) 04/03/24 16:11 Hgb 13.50 g/dL (11.27-16.99) 04/03/24 16:11 Hct 44.9 % (37-53) 04/03/24 16:11 MCV 95.9 fl (82-101) 04/03/24 16:11 MCH 28.8 pg (27-33) 04/03/24 16:11 MCHC 30.1 g/dL (30-55) 04/03/24 16:11 RDW 12.4 % (12.1-15.1) 04/03/24 16:11 Plt Count 318 10^3/cmm (157-399) 04/03/24 16:11 MPV 9.5 fL (7.4-10.4) 04/03/24 16:11 Neut % (Auto) 72.8 % 04/03/24 16:11 Lymph % (Auto) 14.1 % 04/03/24 16:11 [place] % (Auto) 8.0 % 04/03/24 16:11 Eos % (Auto) 3.8 % 04/03/24 16:11 Baso % (Auto) 0.8 % 04/03/24 16:11 Neut # (Auto) 7.34 10^3/uL (1.8-7.7) 04/03/24 16:11 Lymph # (Auto) 1.4 10^3/uL (0.8-4.8) 04/03/24 16:11 [place] # (Auto) 0.8 10^3/uL (0.2-0.9) 04/03/24 16:11 Eos # (Auto) 0.4 10^3/uL (0.0-0.8) 04/03/24 16:11 Baso # (Auto) 0.1 10^3/uL (0.0-0.1) 04/03/24 16:11 Nucleated RBC % (auto) 0 % 04/03/24 16:11 Nucleated RBCs # 0.0 /100WBC 04/03/24 16:11 Sodium 144 mmol/L (136-145) 04/03/24 16:11 Potassium 4.6 mmol/L (3.5-5.1) 04/03/24 16:11 Chloride 103 mmol/L (98-107) 04/03/24 16:11 Carbon Dioxide 34 mmol/L (22-29) H 04/03/24 16:11 Anion Gap 11.6 (5-19) 04/03/24 16:11 BUN 12 mg/dL (8-23) 04/03/24 16:11 Creatinine 0.7 mg/dL (0.7-1.2) 04/03/24 16:11 GFR Calculation 112.5 mL/min (90-130) 04/03/24 16:11 Glucose 124 mg/dL (65-115) H 04/03/24 16:11 Calculated Osmolality 299 mOsm/kg (285-295) H 04/03/24 16:11 Calcium 9.1 mg/dL (8.5-10.5) 04/03/24 16:11 Total Bilirubin 0.2 mg/dL (0.15-1.2) 04/03/24 16:11 AST 14 U/L (0-40) 04/03/24 16:11 ALT 10 U/L (0-41) 04/03/24 16:11 Alkaline Phosphatase 89 U/L (40-130) 04/03/24 16:11 Troponin T Baseline 22 ng/L (0-15) H 04/03/24 16:11 Troponin T 120 Minute 18.71 ng/L (0-15) H 04/03/24 18:11 Delta Troponin T -3.29 ABS# (0-10) L 04/03/24 18:11 Total Protein 6.5 g/dL (6.6-8.7) L 04/03/24 16:11 Albumin 4.1 g/dL (3.5-5.2) 04/03/24 16:11 Globulin 2.4 g/dL (1.3-4.6) 04/03/24 16:11 Lipase 43 U/L (13-60) 04/03/24 16:11 All radiology interpretation(s) finalized by discharge EKG Data EKG 1: I personally reviewed and interpreted this EKG as follows: EKG interpretation date: 04/03/24 EKG interpretation time: 15:56 Interpretation: nsr hr [address] or t wave abnormalities qrs 86 qtc 373 EKG 2: I personally reviewed and interpreted this EKG as follows: EKG interpretation date: 04/03/24 EKG interpretation time: 17:53 Interpretation: nsr hr [address] or t wave abnormalities qrs 81 qtc 373 Discharge Plan Discharge Patient Disposition: Home Clinical Impression: Chest pain, Hypertension Condition: Stable Prescriptions: New Norvasc 5 mg tablet 5 mg PO DAILY Qty: 30 0RF No Action albuterol sulfate 2.5 mg /3 mL (0.083 %) solution for nebulization 2.5 mg inhalation Q4H PRN (Reason: shortness of breath or wheezing) Qty: 300 5RF (DME) nebulizers Misc See Rx Instructions .ROUTE .MEDSUPPLY Qty: 1 0RF Rx Instructions: As directed (DME) Disposable nebulizer circuit See Rx Instructions .ROUTE .MEDSUPPLY Qty: 1 0RF Rx Instructions: As directed Kaylietri Aerosphere 160-9-4.8 mcg/actuation HFA aerosol inhaler 2 inh inhalation BID Qty: 10.7 3RF guaifenesin 400 mg tablet 400 mg PO DAILY Qty: 30 5RF Combivent Respimat 20-100 mcg/actuation mist 1 puff INHALATION Q6H Qty: 4 5RF omeprazole 20 mg capsule,delayed release(DR/EC) 20 mg PO BID Qty: 60 5RF magnesium citrate Solution 300 ml PO DAILY PRN (Reason: constipation) Qty: 296 2RF Rx Instructions: take 10oz bottle at 12:00PM and 20:00PM bisacodyl [Dulcolax (bisacodyl)] 5 mg tablet,delayed release (DR/EC) 5 mg PO DAILY Qty: 4 0RF Rx Instructions: take 4 tabs at 1600 the day before the colonoscopy procedure prednisone 10 mg tablet 10 mg PO DAILY Qty: 40 2RF Rx Instructions: 40 mg X 1 day / 30 mg x 1 day/ 20 mg x 1 day / 10 mg x 1 day/ 5 mg x 60 azithromycin 250 mg tablet See Rx Instructions PO .COMPLEX Qty: 6 0RF Rx Instructions: For 250 mg dose pack: take 500 mg today (day 1), then 250 mg for 4 days (days 2-5) PO albuterol sulfate 90 mcg/actuation HFA aerosol inhaler 2 inh inhalation Q6H PRN (Reason: shortness of breath or wheezing) Qty: 8.5 6RF azithromycin 250 mg tablet 250 mg PO .COMPLEX 360 Days Qty: 30 4RF Rx Instructions: 250 mg orally Tuesday - Tuesday - Tuesday fluticasone propionate [Flonase Allergy Relief] 50 mcg/actuation spray,suspension 2 spray intranasal DAILY 30 Days Qty: 16 3RF Rx Instructions: administer into each nostril trazodone 100 mg tablet 100 mg PO BEDTIME Qty: 30 2RF aspirin 81 mg Tablet,Delayed Release (Dr/Ec) 81 mg PO DAILY cholecalciferol (vitamin D3) [Vitamin D3] 25 mcg (1,000 unit) Capsule 25 mcg PO DAILY sumatriptan succinate 50 mg Tablet 50 mg PO Q3D PRN (Reason: headaches) Rx Instructions: PATIENT TO TAKE ONCE EVERY THREE DAYS [place]-3 350 mg-235 mg- 90 mg-597 mg Capsule,Delayed Release(Dr/Ec) 1 cap PO DAILY benzonatate 100 mg Capsule 100 mg PO TID PRN (Reason: Cough) Qty: 15 0RF Eliquis DVT-PE Treat 30D Start 5 mg (74 tabs) tablets,dose pack See Rx Instructions .ROUTE .COMPLEX Qty: 74 0RF Rx Instructions: orally per package directions Discharge Orders: Discharge ED (Routine); Ordered 04/03/24 Ordered By: Kai Venegas Referrals: Judith Lieberman, [facility] [Primary Care Provider] - 4-7 days Discharge Diet: Advance as tolerated Discharge Activity: Resume usual activity Patient Instructions: Chest Pain (ED) Coding Level of Care Code ED Laminating Machine Feeder for Oli Moise
[2024-04-03 16:16] LABS: Basophils # 0.1 10^3/uL (0.0-0.1); Basophils % 0.8 %; Eosinophils # 0.4 10^3/uL (0.0-0.8); Eosinophils % 3.8 %; Hematocrit 44.9 % (37-53); Lymphocytes # 1.4 10^3/uL (0.8-4.8); Lymphocytes % 14.1 %; Mean Corpuscular HGB Conc 30.1 g/dL (30-55); Mean Corpuscular Hemoglobin 28.8 pg (27-33); Mean Corpuscular Volume 95.9 fl (82-101); Mean Platelet Volume 9.5 fL (7.4-10.4); Monocytes # 0.8 10^3/uL (0.2-0.9); Neutrophils # 7.34 10^3/uL (1.8-7.7); Neutrophils % 72.8 %; Nucleated Red Blood Cells % 0 %; Platelet Count 318 10^3/cmm (157-399); Red Blood Count 4.68 10^6/uL (3.85-5.65); Red Cell Distribution Width 12.4 % (12.1-15.1); White Blood Count 10.08 10^3/uL (3.29-11.43)
[2024-04-03 16:35] LABS: Troponin(5th) Baseline 22 ng/L (0-15)
[2024-04-03 16:38] LABS: Alanine Aminotransferase 10 U/L (0-41); Albumin Level 4.1 g/dL (3.5-5.2); Alkaline Phosphatase 89 U/L (40-130); Anion Gap 11.6 (5-19); Aspartate Amino Transferase 14 U/L (0-40); Blood Urea Nitrogen 12 mg/dL (8-23); Calcium 9.1 mg/dL (8.5-10.5); Carbon Dioxide 34 mmol/L (22-29); Chloride 103 mmol/L (98-107); Creatinine Clr Calc Pharmacy 57.4862; Globulin 2.4 g/dL (1.3-4.6); Glomerular Filtration Rate 112.5 mL/min (90-130); Glucose 124 mg/dL (65-115); Lipase 43 U/L (13-60); Osmolality Calculated 299 mOsm/kg (285-295); Potassium 4.6 mmol/L (3.5-5.1); Sodium 144 mmol/L (136-145); Total Bilirubin 0.2 mg/dL (0.15-1.2); Total Protein 6.5 g/dL (6.6-8.7)
--- NOTE | 2024-04-03 17:47 | ECG_ITS ---
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 Measurements Intervals [place] Rate: 71 P: 82 [place]: 175 QRS: 93 QRSD: 81 T: 82 QT: 350 QTc: 383 Interpretive Statements SINUS RHYTHM WITH OCCASIONAL SUPRAVENTRICULAR PREMATURE COMPLEXES BORDERLINE RIGHT AXIS DEVIATION [QRS AXIS > 90] Compared to ECG 04/03/2024 15:56:54 No significant changes Electronically Signed On 04-04-2024 17:39:02 CDT by Christine Shukla M.D. [id number]
[2024-04-03 18:08] VITALS: BP 157/77; PULSE 88; O2SAT 98
[2024-04-03] MEDS: ipratropium-albuterol 3 mL Neb INHALATION (18:43)
[2024-04-03 18:45] VITALS: PULSE 88; RESP 18; O2SAT 96
[2024-04-03 18:45] LABS: Troponin 5 2HR 18.71 ng/L (0-15)
[2024-04-03 18:46] LABS: Troponin 5 2HR Delta -3.29 ABS# (0-10)
[2024-04-03 19:00] VITALS: BP 144/97; PULSE 87; O2SAT 94
[2024-04-03 19:30] VITALS: BP 150/66; PULSE 70; O2SAT 97
[2024-04-03 20:26] VITALS: BP 136/68; PULSE 74; O2SAT 98
--- NOTE | 2024-04-04 10:24 | DCPLANNER ---
Message sent to Cardiology for follow up on Chest pain and Hypertension
== END 2024-04-03 20:13 | disposition home or self-care (01) ==
PROVIDERS: Emergency Provider Emergency Medicine; PCP Nurse Practitioner
DX: R07.9 Chest pain, unspecified (principal); I10 Essential (primary) hypertension; Z79.82 Long term (current) use of aspirin; Z79.01 Long term (current) use of anticoagulants; F17.210 Nicotine dependence, cigarettes, uncomplicated; Z86.19 Personal history of other infectious and parasitic diseases; J44.9 Chronic obstructive pulmonary disease, unspecified
CPT/HCPCS: 36415; 71045; 80053; 83690; 84484; 85025; 93005; 94640; 99285

== ENCOUNTER 2024-05-17 11:18 | Day surgery (SDC) | payer OTHER, SELFPAY ==
[2024-05-17 11:31] VITALS: BMI 16.2
[2024-05-17 11:37] VITALS: BP 111/72; PULSE 105; RESP 18; TEMP 36.4; O2SAT 93
[2024-05-17] MEDS: sodium chloride 0.9% 1,000 ML 30 ML IV (11:49)
--- NOTE | 2024-05-17 12:23 | P.ANESASSM_ITS ---
Pre-Anesthetic Assessment Height/Weight: Height 5 ft 4 in Weight 95 lb Temp Pulse Resp BP Pulse Ox O2 Del Method 97.5 F L 105 H 18 111/72 93 Room Air 05/17/24 11:37 05/17/24 11:37 05/17/24 11:37 05/17/24 11:37 05/17/24 11:37 05/17/24 11:37 Preop Diagnosis: Screening colonoscopy/EGD Operation Date: 05/17/24 12:50 Proposed Procedures p Colonoscopy(Not Applicable) - Abraham Barnes MD s EGD 24825, K21.9(Not Applicable) - Abraham Barnes MD Last intake: Intake Last Liquid Date 05/16/24 Last Liquid Time 23:45 Last Solid Date 05/15/24 Last Solid Time 19:00 Social Tobacco and No alcohol Exam alert, oriented x 3 and regular rate & rhythm Rhonchi noticed on auscultation Airway Submandibular: within normal limits Cervical ROM: within normal limits Mallampati: Class II Dentition: other (Edentulous) Anesthetic Plan ASA status: 3 Anesthesia: MAC Other: No prior issues with anesthesia Patient completed bowel prep COPD, on chronic prednisone 5 mg daily. Patient takes multiple inhalers. Rhonchi noted on auscultation today. Plan for preop DuoNeb treatment Patient denies any cardiac issues Able to perform ADLs Plan for MAC anesthetic Medications/Allergies Home Medications Medication Instructions Recorded Confirmed Last Taken Type sumatriptan succinate 50 mg tablet 50 mg PO Q3D PRN headaches 08/13/19 05/15/24 03/14/23 History (Imitrex) aspirin 81 mg tablet,delayed 81 mg PO DAILY 11/27/19 05/15/24 05/16/24 History release cholecalciferol (vitamin D3) 25 25 mcg PO DAILY 11/27/19 05/15/24 05/16/24 History mcg (1,000 unit) capsule (Vitamin D3) albuterol sulfate 2.5 mg/3 mL 2.5 mg (3 mL) inhalation Q4H PRN 06/08/22 05/15/24 05/16/24 Rx (0.083 %) solution for nebulization shortness of breath or wheezing #300 mL nebulizers #1 ea 06/08/22 04/19/24 Unknown Rx Disposable nebulizer circuit #1 ea 11/08/23 04/19/24 Unknown Rx ipratropium 20 mcg-albuterol 100 1 puff inhalation Q6H #4 grams 01/01/24 05/15/24 05/16/24 Rx mcg/actuation mist for inhalation (Combivent Respimat) bisacodyl 5 mg tablet,delayed 5 mg PO DAILY #4 tabs 03/21/24 05/15/24 05/16/24 R x release (Dulcolax (bisacodyl)) magnesium citrate 300 ml PO DAILY PRN constipation 03/21/24 05/15/24 05/16/24 Rx #296 mL albuterol sulfate 90 mcg/actuation 2 inh inhalation Q6H PRN shortness 03/23/24 05/15/24 05/16/24 Rx aerosol inhaler of breath or wheezing #8.5 grams amlodipine 5 mg tablet (Norvasc) 5 mg PO DAILY #30 tabs 04/03/24 05/15/24 05/16/24 Rx coenzyme Q10 100 mg tablet 100 mg PO DAILY 04/19/24 05/15/24 05/16/24 History melatonin 5 mg tablet 5 mg PO DAILY 04/19/24 05/15/24 05/14/24 History azithromycin 250 mg tablet 250 mg PO .MON,WED,FRI 05/15/24 05/15/24 05/16/24 History omeprazole 20 mg capsule,delayed See Rx Instructions .Route .COMPLEX 05/15/24 05/15/24 05/16/24 History release prednisone 10 mg tablet 5 mg PO DAILY 05/15/24 05/15/24 05/16/24 History trazodone 100 mg tablet 150 mg PO BEDTIME 05/15/24 05/15/24 05/14/24 History Allergies Allergy/AdvReac Type Severity Reaction Status Date / Time No Known Allergies Allergy Verified 05/15/24 11:20 Current Medications Generic Name Dose Route Start Last Admin Trade Name Freq PRN Reason Stop Dose Admin Sodium Chloride 1,000 mls @ 30 mls/hr 05/17/24 11:30 05/17/24 11:49 Sodium Chloride 0.9% IV 05/18/24 11:29 30 mls/hr .Q24H LANIE Administration PFSH Anesthesia Medical History History of migraine headaches Vitamin D deficiency Hepatitis C Treatment status unknown Hx of colonic polyps Sessile on colonoscopy 02/16 Depression GERD (gastroesophageal reflux disease) Peptic ulcer disease Gastric ulcer on EGD 02/16 COPD (chronic obstructive pulmonary disease) Surgical History History of colonoscopy with polypectomy 2019 Status post excision of lipoma (~01/2019) Hx of appendectomy Family History Father Tuberculosis Denies family history of Diabetes Cancer Social History Smoking and tobacco/nicotine status: current every day tobacco/nicotine user cigarettes Packs smoked per day: 1.5 Years cigarettes smoked: 46 [ Other cigarette details: started at age 22] Second hand smoke exposure: No Alcohol intake: current Alcohol intake frequency: holidays/special occasions only Substance/Drug Use: unknown Adopted: No Caregiver/support person: No Lives independently: Yes Household members: spouse Housing: House Marital status: service: No Current occupational status: retired Pets and animals: Yes Do you think of yourself as: Straight/Heterosexual Current gender identity: Male Data Anesthesia Cardiac Studies: Echocardiogram 12/09/23
[2024-05-17 12:56] VITALS: PULSE 105; RESP 20; O2SAT 93
[2024-05-17] MEDS: ipratropium-albuterol 3 mL Neb INHALATION (12:56)
--- NOTE | 2024-05-17 12:57 | P.HP_ITS ---
Same Day Surgery H&P Indication for Procedure/HPI DATE OF PROCEDURE: May 17, 2024 CHIEF COMPLAINT/INDICATIONFOR SURGICAL PROCEDURE: gerd and need for screening colonoscopy PREOP DIAGNOSIS: Screening colonoscopy/EGD PLANNED PROCEDURE: Operation Date: 05/17/24 12:50 Proposed Procedures p Colonoscopy(Not Applicable) - Abraham Barnes MD s EGD 65504, K21.9(Not Applicable) - Abraham Barnes MD Medications/Allergies* Home Medications Medication Instructions Recorded Confirmed Type sumatriptan succinate 50 mg tablet 50 mg PO Q3D PRN headaches 08/13/19 05/15/24 History (Imitrex) aspirin 81 mg tablet,delayed 81 mg PO DAILY 11/27/19 05/15/24 History release cholecalciferol (vitamin D3) 25 25 mcg PO DAILY 11/27/19 05/15/24 History mcg (1,000 unit) capsule (Vitamin D3) coenzyme Q10 100 mg tablet 100 mg PO DAILY 04/19/24 05/15/24 History melatonin 5 mg tablet 5 mg PO DAILY 04/19/24 05/15/24 History azithromycin 250 mg tablet 250 mg PO .MON,WED,FRI 05/15/24 05/15/24 History omeprazole 20 mg capsule,delayed See Rx Instructions .Route .COMPLEX 05/15/24 05/15/24 History release prednisone 10 mg tablet 5 mg PO DAILY 05/15/24 05/15/24 History trazodone 100 mg tablet 150 mg PO BEDTIME 05/15/24 05/15/24 History Allergies/Adverse Reactions Allergy/AdvReac Type Severity Reaction Status Date / Time No Known Allergies Allergy Verified 05/15/24 11:20 Current Medications: Generic Name Dose Route Start Last Admin Trade Name Freq PRN Reason Stop Dose Admin Sodium Chloride 1,000 mls @ 30 mls/hr 05/17/24 11:30 05/17/24 11:49 Sodium Chloride 0.9% IV 05/18/24 11:29 30 mls/hr .Q24H LANIE Administration Pertinent History/Comorbid Conditions* Medical History (Updated 04/11/24 @ 00:02 by ROSANNA Lancaster) History of migraine headaches Vitamin D deficiency Hepatitis C Treatment status unknown Hx of colonic polyps Sessile on colonoscopy 02/16 Depression GERD (gastroesophageal reflux disease) Peptic ulcer disease Gastric ulcer on EGD 02/16 COPD (chronic obstructive pulmonary disease) Surgical History (Updated 01/20/21 @ 13:30 by Pravin Landa MD) History of colonoscopy with polypectomy 2019 Status post excision of lipoma (~01/2019) Hx of appendectomy Family History (Updated 06/08/22 @ 17:29 by LESLY Hernandez-C) Tuberculosis Father Denies family history of Diabetes Cancer Social History Smoking and tobacco/nicotine status: current every day tobacco/nicotine user cigarettes Packs smoked per day: 1.5 Years cigarettes smoked: 46 [ Other cigar ette details: started at age 22] Second hand smoke exposure: No Alcohol intake: current Alcohol intake frequency: holidays/special occasions only Substance/Drug Use: unknown Adopted: No Caregiver/support person: No Lives independently: Yes Household members: spouse Housing: House Marital status: service: No Current occupational status: retired Pets and animals: Yes Do you think of yourself as: Straight/Heterosexual Current gender identity: Male Pertinent Exam Findings alert, oriented x 3, clear to auscultation bilaterally, regular rate & rhythm and operative site marked Recommendations Surgery/Procedure today Coding Level of Care Code Acute Code for Chg Fwd
[2024-05-17 14:21] VITALS: BP 107/68; PULSE 79; RESP 17; TEMP 36.1; O2SAT 100
[2024-05-17 14:36] VITALS: BP 109/80; PULSE 83; RESP 18; O2SAT 94
== END 2024-05-17 14:58 | disposition home or self-care (01) ==
PROVIDERS: PCP Family Medicine; Visit Provider Surgery
PROC: 0DJD8ZZ Inspection of Lower Intestinal Tract, Via Natural or Artificial Opening Endoscopic (ICD-10-PCS; CPT 45378; principal; 2024-05-17 12:50)
PROC: 0DJ08ZZ Inspection of Upper Intestinal Tract, Via Natural or Artificial Opening Endoscopic (ICD-10-PCS; CPT 43235; 2024-05-17 12:50)
DX: Z12.11 Encounter for screening for malignant neoplasm of colon (principal); K29.70 Gastritis, unspecified, without bleeding; D12.2 Benign neoplasm of ascending colon; Z79.82 Long term (current) use of aspirin; Z79.52 Long term (current) use of systemic steroids; Z86.19 Personal history of other infectious and parasitic diseases; Z86.0100 Personal history of colon polyps, unspecified; F32.A Depression, unspecified; K21.9 Gastro-esophageal reflux disease without esophagitis; Z87.11 Personal history of peptic ulcer disease; J44.9 Chronic obstructive pulmonary disease, unspecified; F17.210 Nicotine dependence, cigarettes, uncomplicated
CPT/HCPCS: 43239; 45380; 45385; 88305; 94640; J2704; J7030

== ENCOUNTER → 2024-05-23 13:21 | Outpatient (BNVA) | payer OTHER, SELFPAY | PROVIDERS: PCP Family Medicine; Visit Provider Internal Medicine Cardiovascular Disease | DX: R07.9 Chest pain, unspecified (principal); R06.02 Shortness of breath; I10 Essential (primary) hypertension; F17.210 Nicotine dependence, cigarettes, uncomplicated | CPT/HCPCS: 99204 ==

== ENCOUNTER 2024-05-25 13:54 | Outpatient (CLI) | payer OTHER, SELFPAY ==
--- NOTE | 2024-05-25 | PETR_ITS ---
PROCEDURE INFORMATION: Exam: PET/CT Skull Base to Mid-thigh Exam date and time: 05/25/2024 2:46 PM Age: 68 years old Clinical indication: Abnormal findings; Abnormal lung findings; Prior surgery; Surgery date: 6+ months; Surgery type: Bronch LABS AND CLINICAL REPORTS: Glucose: 94 mg/dl Treatment strategy for malignancy (PET staging): Initial Staging (PI) TECHNIQUE: Imaging protocol: Following at least four-hour fasting and following the injection of radiopharmaceutical, low dose CT images were obtained. Then, PET images were obtained. Attenuation corrected images were constructed using the CT scan. Fused images of PET and CT were reviewed. The standardized uptake values (SUV) reported below are maximum values within a region of interest, expressed in gm/ml. Exam includes orbital meatal line to mid-thigh. Radiopharmaceutical: 10.2 mCi F-18 FDG (Fluorodeoxyglucose), IV. Time of imaging post radiopharmaceutical administration: 1 hour Injection site: right ac COMPARISON: CT PET Scan 02/04/2023 11:50 AM FINDINGS: Brain: Visualized brain has normal physiologic uptake. Pharynx: No abnormal uptake. Larynx: No abnormal uptake. Lungs, pleura and trachea: Mild upper lung predominant emphysematous change. Bilateral bronchial thickening. Mildly increased size and solid density of spiculated right upper lobe nodule measuring 1.7 x 1.2 cm on axial image 236 of series 202 (previously 1.5 x 1.0 cm) with 0.8 cm nodular density just inferior possibly representing adjacent nodule versus inferior extension, SUV max of 2.3. Stable non FDG avid 6 mm right upper lobe nodule on axial image 244 of series 202. Small area of non FDG avid right middle lobe tree-in-bud nodularity. Intervally stable 4 mm right lower lobe nodule on axial image 211 of series 202 showing no FDG avidity, previously 3 mm in January 2023. Couple of stable 4 mm left upper lobe nodules on axial images 232 and 235 of series 202 without FDG uptake. Couple intervally decreased mildly irregular left lower lobe superior segment nodular densities without FDG uptake, index 4 mm nodule on axial image 233 of series 202, previously 6 mm. Heart: Normal physiologic uptake. Mediastinal space: No abnormal uptake. Liver: No abnormal uptake. Gallbladder and biliary ducts: No abnormal uptake. Cholelithiasis. Pancreas: No abnormal uptake. Spleen: No abnormal uptake. Adrenal glands: No abnormal uptake. Kidneys and ureters: Normal physiologic uptake. Stomach and bowel: Focal FDG avidity with underlying soft tissue density at the cecum on axial image 95 of series 202 showing SUV max of 21.3, previously 12.0. Focal low-level FDG uptake adjacent to metallic density at the ascending colon shows SUV max of 3.4 on axial image 112 of series 202. Vasculature: No abnormal uptake. Mild systemic atherosclerotic calcification without aortic aneurysm. Lymph nodes: No abnormal uptake. No lymphadenopathy in the head, neck, chest, abdomen, pelvis, and extremities. Skeleton: No abnormal uptake in the visualized axial and appendicular skeleton. Mild degenerative changes along the spine and sacroiliac joints. Soft tissues: No abnormal uptake in the visualized head, neck, chest, abdomen, pelvis, and extremities. Small fat containing bilateral inguinal hernias. PET/PET skull to thigh SUBS [id number] IMPRESSION: 1. Mildly increased size and density of 1.7 cm spiculated right upper lobe nodule with adjacent 0.8 cm nodular density just inferior versus inferior extension. Despite low-level FDG uptake, morphologic features suspicious for malignancy. 2. Few additional subcentimeter pulmonary nodules varying from slightly decreased to slightly increased size, too small for accurate assessment of metabolic activity. 3. Small area of right middle lobe tree-in-bud nodularity likely infectious or inflammatory bronchiolitis. 4. Increased focal FDG uptake with underlying soft tissue density at the cecum. Consider colonoscopy.
== END 2024-05-25 13:55 | disposition home or self-care (01) ==
LOC: RAD 13:55
PROVIDERS: PCP Family Medicine; Visit Provider Family Medicine
DX: R91.1 Solitary pulmonary nodule (principal); R91.8 Other nonspecific abnormal finding of lung field; K80.20 Calculus of gallbladder without cholecystitis without obstruction; R93.3 Abnormal findings on diagnostic imaging of other parts of digestive tract; R93.89 Abnormal findings on diagnostic imaging of other specified body structures
CPT/HCPCS: 78815; A9552

== ENCOUNTER 2024-05-26 19:32 | Observation (INO) | payer OTHER, MEDICARE, MEDICAID, SELFPAY ==
[2024-05-26] VITALS (7 sets, daily range): BP systolic 98–139; BP diastolic 70–82; PULSE 86–107; RESP 19–28; TEMP 36.5–36.6; O2SAT 90–98; BMI 20.5
--- NOTE | 2024-05-26 19:36 | XRR_ITS ---
PROCEDURE INFORMATION: Exam: XR Chest Exam date and time: 05/26/2024 7:54 PM Age: 68 years old Clinical indication: Pain; Chest pressure; Additional info: Chest pain TECHNIQUE: Imaging protocol: Radiologic exam of the chest. Views: 1 view. COMPARISON: CR XR chest 1V portable [id number] 04/03/2024 4:02 PM FINDINGS: Lungs: Unremarkable. No consolidation. Pleural spaces: Unremarkable. No pleural effusion. No pneumothorax. Heart/Mediastinum: Unremarkable. No cardiomegaly. Bones/joints: Unremarkable. XR/XR chest 1V portable [id number] IMPRESSION: No acute findings.
--- NOTE | 2024-05-26 19:44 | W.ED.CHESTPA ---
HPI - Chest Pain General: Chief Complaint: Chest Pain Stated Complaint: chest pain Time Seen by Provider: 05/26/24 19:32 Source: patient and EMS Mode of arrival: EMS Limitations: no limitations History of Present Illness: 68-year-old male states been having some sharp chest pain since this morning. States it has been a sharp pain in the center of his chest he has a history of COPD as well he received a breathing treatment and route states did help his breathing and his pain his pain is currently a 2 out of 10. He had seen cardiology last week he is getting scheduled for a stress test. Denies any nausea or diaphoresis. Associated symptoms: Deny abdominal pain, dyspnea, fever(s), nausea or vomiting Related Data Home Medications Medication Instructions Recorded Confirmed sumatriptan succinate 50 mg tablet 50 mg PO Q3D PRN headaches 08/13/19 05/23/24 (Imitrex) aspirin 81 mg tablet,delayed 81 mg PO DAILY 11/27/19 05/23/24 release cholecalciferol (vitamin D3) 25 25 mcg PO DAILY 11/27/19 05/23/24 mcg (1,000 unit) capsule (Vitamin D3) coenzyme Q10 100 mg tablet 100 mg PO DAILY 04/19/24 05/23/24 melatonin 5 mg tablet 5 mg PO DAILY 04/19/24 05/23/24 azithromycin 250 mg tablet 250 mg PO .MON,WED,Tue05/15/24 05/23/24 omeprazole 20 mg capsule,delayed See Rx Instructions .Route .COMPLEX 05/15/24 05/23/24 release prednisone 10 mg tablet 5 mg PO DAILY 05/15/24 05/23/24 trazodone 100 mg tablet 150 mg PO BEDTIME 05/15/24 05/23/24 Previous Rx's Medication Instructions Recorded albuterol sulfate 2.5 mg/3 mL 2.5 mg (3 mL) inhalation Q4H PRN 06/08/22 (0.083 %) solution for nebulization shortness of breath or wheezing #300 mL nebulizers #1 ea 06/08/22 Disposable nebulizer circuit #1 ea 11/08/23 ipratropium 20 mcg-albuterol 100 1 puff inhalation Q6H #4 grams 01/01/24 mcg/actuation mist for inhalation (Combivent Respimat) bisacodyl 5 mg tablet,delayed 5 mg PO DAILY #4 tabs 03/21/24 release (Dulcolax (bisacodyl)) magnesium citrate 300 ml PO DAILY PRN constipation 03/21/24 #296 mL albuterol sulfate 90 mcg/actuation 2 inh inhalation Q6H PRN shortness 03/23/24 aerosol inhaler of breath or wheezing #8.5 grams isosorbide mononitrate 30 mg 30 mg PO DAILY #90 tabs 05/23/24 tablet,extended release 24 hr metoprolol succinate 25 mg 12.5 mg (1/2 x 25 mg) PO DAILY #45 05/23/24 tablet,extended release 24 hr tabs nitroglycerin 0.4 mg sublingual 0.4 mg sublingual Q5M PRN chest 05/23/24 tablet pain #20 tabs Allergies Allergy/AdvReac Type Severity Reaction Status Date / Time No Known Allergies Allergy Verified 05/23/24 13:28 Review of Systems Const: Denies: fever(s), chills, body aches or change in appetite ENMT: Denies: throat pain or dental pain Card: Reports: chest pain Resp: Denies: dyspnea GI: Denies: abdominal pain, nausea, vomiting or diarrhea Musc: Denies: neck pain or back pain Skin/Breast: Denies: rash Neuro: Denies: headache(s) PFSH ED PFSH: Medical History Essential hypertension History of migraine headaches Vitamin D deficiency Hepatitis C Treatment status unknown Hx of colonic polyps Sessile on colonoscopy 02/16 Depression GERD (gastroesophageal reflux disease) Peptic ulcer disease Gastric ulcer on EGD 02/16 COPD (chronic obstructive pulmonary disease) Surgical History History of colonoscopy with polypectomy 2019 Status post excision of lipoma (~01/2019) Hx of appendectomy Family History Father Tuberculosis Denies family history of Diabetes Cancer Social History Smoking and tobacco/nicotine status: current every day tobacco/nicotine user cigarettes Packs smoked per day: 1.5 Years cigarettes smoked: 46 [ Other cigarette details: started at age 22] Second hand smoke exposure: No Alcohol intake: current Alcohol intake frequency: holidays/special occasions only Substance/Drug Use: unknown Adopted: No Caregiver/support person: No Lives independently: Yes Household members: spouse Housing: House Marital status: service: No Current occupational status: retired Pets and animals: Yes Do you think of yourself as: Straight/Heterosexual Current gender identity: Male Physical Exam Const: COMMON NORMALS: no acute distress, patient oriented x3 and healthy appearing HENMT: COMMON NORMALS: normocephalic and atraumatic HEAD & SCALP: normocephalic and atraumatic Eye: COMMON NORMALS: conjunctivae normal CONJUNCTIVA: Yes conjunctivae normal Neck/C-Spine: COMMON NORMALS: full ROM and supple Chest: COMMONS NORMALS: normal inspection of the chest and normal palpation of entire chest wall Resp: COMMON NORMALS: normal respiratory effort, No retractions, No use of accessory muscles and clear to auscultation bilaterally AUSCULTATION: clear to auscultation bilaterally Cardio: COMMON NORMALS: regular rate, regular rhythm and No murmurs present (Cardio) RATE: regular rate RHYTHM: regular rhythm GI: COMMON NORMALS: Normal to inspection, nondistended, normoactive bowel sounds present, Soft to palpation, non-tender and no masses PALPATION: Yes Soft to palpation Extremity: COMMON NORMALS: normal to inspection and full ROM Neuro: COMMON NORMALS: patient oriented x3, moves all extremities and no focal motor deficits Psych: COMMON NORMALS: mental status grossly normal, Normal thought process present and cooperative THOUGHT PROCESS: Normal thought process present Skin: COMMON NORMALS: no rashes or lesions noted and no wounds GENERAL SKIN EXAM: no rashes or lesions noted Course Vital Signs: Vital signs: Vital Signs Temperature 98 F 05/26/24 19:45 Pulse Rate 100 05/26/24 20:45 Respiratory Rate 21 H 05/26/24 20:45 Blood Pressure 105/79 05/26/24 20:45 Pulse Oximetry 90 05/26/24 20:45 Oxygen Delivery Me thod Nasal Cannula 05/26/24 20:45 Oxygen Flow Rate 2 05/26/24 20:45 MDM - Chest Pain Medical Decision Making Patient presents here with chest pain initial troponin here is 22 will admit for angina he has no signs of PE chest x-ray is negative. Medical Records I reviewed the patient's medical records. Lab Data I reviewed the patient's lab results. 05/26/24 19:55 05/26/24 19:55 Laboratory Results WBC 9.56 10^3/uL (3.29-11.43) 05/26/24 19:55 RBC 5.00 10^6/uL (3.85-5.65) 05/26/24 19:55 Hgb 14.50 g/dL (11.27-16.99) 05/26/24 19:55 Hct 47.2 % (37-53) 05/26/24 19:55 MCV 94.4 fl (82-101) 05/26/24 19:55 MCH 29.0 pg (27-33) 05/26/24 19:55 MCHC 30.7 g/dL (30-55) 05/26/24 19:55 RDW 12.8 % (12.1-15.1) 05/26/24 19:55 Plt Count 401 10^3/cmm (157-399) H 05/26/24 19:55 MPV 9.3 fL (7.4-10.4) 05/26/24 19:55 Neut % (Auto) 81.1 % 05/26/24 19:55 Lymph % (Auto) 11.0 % 05/26/24 19:55 Ramsey % (Auto) 5.9 % 05/26/24 19:55 Eos % (Auto) 0.7 % 05/26/24 19:55 Baso % (Auto) 0.7 % 05/26/24 19:55 Neut # (Auto) 7.75 10^3/uL (1.8-7.7) H 05/26/24 19:55 Lymph # (Auto) 1.1 10^3/uL (0.8-4.8) 05/26/24 19:55 Ramsey # (Auto) 0.6 10^3/uL (0.2-0.9) 05/26/24 19:55 Eos # (Auto) 0.1 10^3/uL (0.0-0.8) 05/26/24 19:55 Baso # (Auto) 0.1 10^3/uL (0.0-0.1) 05/26/24 19:55 Nucleated RBC % (auto) 0 % 05/26/24 19:55 Nucleated RBCs # 0.0 /100WBC 05/26/24 19:55 PT 12.00 SECONDS (12.1-14.9) L 05/26/24 19:55 INR 0.86 (0.8-1.2) 05/26/24 19:55 Sodium 141 mmol/L (136-145) 05/26/24 19:55 Potassium 5.1 mmol/L (3.5-5.1) 05/26/24 19:55 Chloride 101 mmol/L (98-107) 05/26/24 19:55 Carbon Dioxide 30 mmol/L (22-29) H 05/26/24 19:55 Anion Gap 15.1 (5-19) 05/26/24 19:55 BUN 17 mg/dL (8-23) 05/26/24 19:55 Creatinine 0.8 mg/dL (0.7-1.2) 05/26/24 19:55 GFR Calculation 96.4 mL/min (90-130) 05/26/24 19:55 Glucose 119 mg/dL (65-115) H 05/26/24 19:55 Calculated Osmolality 295 mOsm/kg (285-295) 05/26/24 19:55 Calcium 9.6 mg/dL (8.5-10.5) 05/26/24 19:55 Total Bilirubin 0.2 mg/dL (0.15-1.2) 05/26/24 19:55 AST 16 U/L (0-40) 05/26/24 19:55 ALT 12 U/L (0-41) 05/26/24 19:55 Alkaline Phosphatase 113 U/L (40-130) 05/26/24 19:55 Troponin T Baseline 22 ng/L (0-15) H 05/26/24 19:55 Total Protein 7.0 g/dL (6.6-8.7) 05/26/24 19:55 Albumin 4.5 g/dL (3.5-5.2) 05/26/24 19:55 Globulin 2.5 g/dL (1.3-4.6) 05/26/24 19:55 All radiology interpretation(s) finalized by discharge EKG Data EKG 1: I personally reviewed and interpreted this EKG as follows: EKG interpretation date: 05/26/24 EKG interpretation time: 19:45 Interpretation: nsr hr [address] elevation qrs 80 qtc 376 Discharge Plan Discharge Patient Disposition: Admitted As Inpatient Clinical Impression: Chest pain Condition: Stable Prescriptions: No Action albuterol sulfate 2.5 mg /3 mL (0.083 %) solution for nebulization 2.5 mg inhalation Q4H PRN (Reason: shortness of breath or wheezing) Qty: 300 5RF (DME) nebulizers Misc See Rx Instructions .ROUTE .MEDSUPPLY Qty: 1 0RF Rx Instructions: As directed (DME) Disposable nebulizer circuit See Rx Instructions .ROUTE .MEDSUPPLY Qty: 1 0RF Rx Instructions: As directed Combivent Respimat 20-100 mcg/actuation mist 1 puff INHALATION Q6H Qty: 4 5RF isosorbide mononitrate 30 mg tablet extended release 24 hr 30 mg PO DAILY Qty: 90 3RF nitroglycerin 0.4 mg tablet, sublingual 0.4 mg sublingual Q5M PRN (Reason: chest pain) Qty: 20 2RF Rx Instructions: do not exceed 3 doses per episode metoprolol succinate 25 mg tablet extended release 24 hr 12.5 mg PO DAILY Qty: 45 1RF magnesium citrate Solution 300 ml PO DAILY PRN (Reason: constipation) Qty: 296 2RF Rx Instructions: take 10oz bottle at 12:00PM and 20:00PM bisacodyl [Dulcolax (bisacodyl)] 5 mg tablet,delayed release (DR/EC) 5 mg PO DAILY Qty: 4 0RF Rx Instructions: take 4 tabs at 1600 the day before the colonoscopy procedure albuterol sulfate 90 mcg/actuation HFA aerosol inhaler 2 inh inhalation Q6H PRN (Reason: shortness of breath or wheezing) Qty: 8.5 6RF melatonin 5 mg Tablet 5 mg PO DAILY coenzyme Q10 100 mg Tablet 100 mg PO DAILY aspirin 81 mg Tablet,Delayed Release (Dr/Ec) 81 mg PO DAILY cholecalciferol (vitamin D3) [Vitamin D3] 25 mcg (1,000 unit) Capsule 25 mcg PO DAILY sumatriptan succinate [Imitrex] 50 mg Tablet 50 mg PO Q3D PRN (Reason: headaches) Rx Instructions: PATIENT TO TAKE ONCE EVERY THREE DAYS trazodone 100 mg tablet 150 mg PO BEDTIME omeprazole 20 mg capsule,delayed release(DR/EC) See Rx Instructions .ROUTE .COMPLEX Rx Instructions: 40mg every morning and 20 mg every night prednisone 10 mg Tablet 5 mg PO DAILY azithromycin 250 mg Tablet 250 mg PO .MON,WED,FRI Referrals: Ellie Irene MD [Primary Care Provider] - Coding Level of Care Code ED Lead Man Over All Dies In [employer] for Oli Moise
--- NOTE | 2024-05-26 19:45 | ECG_ITS ---
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 Measurements Intervals [place] Rate: 96 P: 85 MT: 179 QRS: 93 QRSD: 80 T: 75 QT: 322 QTc: 409 Interpretive Statements SINUS RHYTHM BORDERLINE RIGHT AXIS DEVIATION [QRS AXIS > 90] Compared to ECG 04/03/2024 17:53:27 No significant changes Electronically Signed On 05-28-2024 00:12:15 CDT by Christine Shukla M.D. [email or web address]
[2024-05-26 20:03] LABS: Basophils # 0.1 10^3/uL (0.0-0.1); Basophils % 0.7 %; Eosinophils # 0.1 10^3/uL (0.0-0.8); Eosinophils % 0.7 %; Hematocrit 47.2 % (37-53); Lymphocytes # 1.1 10^3/uL (0.8-4.8); Mean Corpuscular HGB Conc 30.7 g/dL (30-55); Mean Corpuscular Volume 94.4 fl (82-101); Mean Platelet Volume 9.3 fL (7.4-10.4); Monocytes # 0.6 10^3/uL (0.2-0.9); Monocytes % 5.9 %; Neutrophils # 7.75 10^3/uL (1.8-7.7); Neutrophils % 81.1 %; Nucleated Red Blood Cells % 0 %; Platelet Count 401 10^3/cmm (157-399); Red Cell Distribution Width 12.8 % (12.1-15.1); White Blood Count 9.56 10^3/uL (3.29-11.43)
[2024-05-26] MEDS: ondansetron 2 mg/ML SDV 2 mL 4 MG IVP (20:12)
[2024-05-26] MEDS: morphine 4 mg/mL SDV 1 mL IVP (20:13)
[2024-05-26 20:17] LABS: INR 0.86 (0.8-1.2)
[2024-05-26 20:22] LABS: Troponin(5th) Baseline 22 ng/L (0-15)
[2024-05-26 20:25] LABS: Alanine Aminotransferase 12 U/L (0-41); Albumin Level 4.5 g/dL (3.5-5.2); Alkaline Phosphatase 113 U/L (40-130); Anion Gap 15.1 (5-19); Aspartate Amino Transferase 16 U/L (0-40); Blood Urea Nitrogen 17 mg/dL (8-23); Calcium 9.6 mg/dL (8.5-10.5); Carbon Dioxide 30 mmol/L (22-29); Chloride 101 mmol/L (98-107); Creatinine Clr Calc Pharmacy 72.6102; Globulin 2.5 g/dL (1.3-4.6); Glomerular Filtration Rate 96.4 mL/min (90-130); Glucose 119 mg/dL (65-115); Osmolality Calculated 295 mOsm/kg (285-295); Potassium 5.1 mmol/L (3.5-5.1); Sodium 141 mmol/L (136-145); Total Bilirubin 0.2 mg/dL (0.15-1.2)
--- NOTE | 2024-05-26 20:34 | P.HP_ITS ---
Providers/Chief Complaint 2 Primary Care Provider: Ellie Irene MD Chief Complaint: chest pain History of Present Illness Naren Pritchard is a 68 year old male with a past medical history significant for COPD, hypertension, hepatitis C, depression, GERD, peptic ulcer disease and tobacco use disorder who presents emergency department with chest pain. Patient reports onset this morning. Describes the pain as left-sided, substernal, and sharp in nature. Exertion worsens symptoms. Rest improves. Endorses associated shortness of breath. He rates his pain 4 out of 10. Denies fevers, chills, nausea or emesis. Patient had been seen by Dr. Colon in clinic for evaluation of worsening shortness of breath as well as chest pressure on exertion. Plan was for outpatient stress testing. ED provider discussed patient with Dr. Holden who recommended patient stay for stress testing on Tuesday. Review of Systems 2 Narrative: A complete review of systems was obtained and is negative except as stated in HPI. Medications/Allergies Home Medications Medication Instructions Recorded Confirmed Last Taken Type sumatriptan succinate 50 mg tablet 50 mg PO Q3D PRN headaches 08/13/19 05/26/24 03/14/23 History (Imitrex) aspirin 81 mg tablet,delayed 81 mg PO DAILY 11/27/19 05/26/24 05/16/24 History release cholecalciferol (vitamin D3) 25 25 mcg PO DAILY 11/27/19 05/26/24 05/16/24 History mcg (1,000 unit) capsule (Vitamin D3) albuterol sulfate 2.5 mg/3 mL 2.5 mg (3 mL) inhalation Q4H PRN 06/08/22 05/26/24 05/16/24 Rx (0.083 %) solution for nebulization shortness of breath or wheezing #300 mL nebulizers #1 ea 06/08/22 05/26/24 Unknown Rx Disposable nebulizer circuit #1 ea 11/08/23 05/26/24 Unknown Rx ipratropium 20 mcg-albuterol 100 1 puff inhalation Q6H #4 grams 01/01/24 05/26/24 05/16/24 Rx mcg/actuation mist for inhalation (Combivent Respimat) albuterol sulfate 90 mcg/actuation 2 inh inhalation Q6H PRN shortness 03/23/24 05/26/24 05/16/24 Rx aerosol inhaler of breath or wheezing #8.5 grams coenzyme Q10 100 mg tablet 100 mg PO DAILY 04/19/24 05/26/24 05/16/24 History melatonin 5 mg tablet 5 mg PO DAILY 04/19/24 05/26/24 05/14/24 History omeprazole 20 mg capsule,delayed See Rx Instructions .Route .COMPLEX 05/15/24 05/26/24 05/16/24 History release prednisone 10 mg tablet 5 mg PO DAILY 05/15/24 05/26/24 05/16/24 History trazodone 100 mg tablet 200 mg PO BEDTIME 05/15/24 05/26/24 05/14/24 History isosorbide mononitrate 30 mg 30 mg PO DAILY #90 tabs 05/23/24 05/26/24 Unknown Rx tablet,extended release 24 hr metoprolol succinate 25 mg 12.5 mg (1/2 x 25 mg) PO DAILY #45 05/23/24 05/26/24 Unknown Rx tablet,extended release 24 hr tabs nitroglycerin 0.4 mg sublingual 0.4 mg sublingual Q5M PRN chest 05/23/24 05/26/24 Unknown Rx tablet pain #20 tabs Allergies Allergy/AdvReac Type Severity Reaction Status Date / Time No Known Allergies Allergy Verified 05/23/24 13:28 PFSH Acute 2 PFSH: Medical History Essential hypertension History of migraine headaches Vitamin D deficiency Hepatitis C Treatment status unknown Hx of colonic polyps Sessile on colonoscopy 02/16 Depression GERD (gastroesophageal reflux disease) Peptic ulcer disease Gastric ulcer on EGD 02/16 COPD (chronic obstructive pulmonary disease) Surgical History History of colonoscopy with polypectomy 2019 Status post excision of lipoma (~01/2019) Hx of appendectomy Family History Father Tuberculosis Denies family history of Diabetes Cancer Social History Smoking and tobacco/nicotine status: current every day tobacco/nicotine user cigarettes Packs smoked per day: 1.5 Years cigarettes smoked: 46 [ Other cigarette details: started at age 22] Second hand smoke exposure: No Alcohol intake: current Alcohol intake frequency: holidays/special occasions only Substance/Drug Use: unknown Adopted: No Caregiver/support person: No Lives independently: Yes Household members: spouse Housing: House Marital status: service: No Current occupational status: retired Pets and animals: Yes Do you think of yourself as: Straight/Heterosexual Current gender identity: Male Vitals/I&O/Wt Last Vital Signs Temp 98 F 05/26/24 19:45 Pulse 99 05/26/24 20:13 Resp 22 H 05/26/24 20:13 BP 122/70 05/26/24 20:13 Pulse Ox 96 05/26/24 20:13 O2 Del Method Nasal Cannula 05/26/24 20:13 O2 Flow Rate 2 05/26/24 20:13 Weight last 48 hrs Weight 54.431 kg Physical Exam 2 Narrative: General: Patient is awake and alert. In bed. Chronically ill-appearing. Head: Normocephalic. Atraumatic. EOM intact. Neck: No JVD. Cardiovascular: RRR. No gallops. No murmurs. No peripheral edema. Lungs: Breath sounds are diminished at bilateral bases. Prolonged expiratory phase. End expiratory wheezing present. No use of accessory muscles. No crackles. On nasal cannula support. Skin: No jaundice. No rashes. Abdomen: Normal bowel sounds, abdomen soft and nontender. Genito Urinary: Genital exam not performed since complaints not related. Rectal: Rectal exam not performed since no symptoms indicated blood loss. Extremities: No cyanosis or clubbing. Musculoskeletal: No swollen or erythematous joints. Neurological: Moves all 4 extremities. No myoclonus. Data 05/26/24 19:55 05/26/24 19:55 A&P Assessment and plan (1) Chest pain: Chest pain concerning for unstable angina Continuous telemetry monitoring Trend troponins Continue home Imdur Continue beta-hal Continue aspirin Nitro as needed Echocardiogram ordered We will plan on stress testing on Tuesday Consider formal cardiology consult pending clinical course (2) COPD (chronic obstructive pulmonary disease): COPD with chronic hypoxic respiratory failure Continue formulary nebulizing version the home medications Continue home low-dose prednisone Supplemental oxygen support Supportive care Qualifiers: COPD type: emphysema Emphysema type: other Qualified Code(s): J43.8 - Other emphysema (3) GERD (gastroesophageal reflux disease): Continue formulary PPI Qualifiers: Esophagitis presence: without esophagitis Qualified Code(s): K21.9 - Gastro-esophageal reflux disease without esophagitis (4) Tobacco dependence with current use: Patient would benefit from smoking cessation (5) Protein-calorie malnutrition, severe: Encourage oral intake Nutrition eval on Tuesday Plan DVT prophylaxis: Lovenox Attestations 2 Medical Necessity Statement*: Patient presents with chest pain concerning for unstable angina with expected hospitalization not to cross 2 midnights for acute coronary syndrome rule out, serial labs, echocardiogram, telemetry, and stress testing for which patient will be admitted to observation. Coding Level of Care Code Acute Code for Chg Fwd Diagnoses Chest pain R07.9 Other emphysema J43.8 COPD type: emphysema Emphysema type: other Gastroesophageal reflux disease without esophagitis K21.9 Esophagitis presence: without esophagitis Tobacco dependence with current use F17.200 Protein-calorie malnutrition, severe E43
[2024-05-26 21:55] LABS: Troponin 5 2HR 20.18 ng/L (0-15)
[2024-05-26 21:56] LABS: Troponin 5 2HR Delta -1.82 ABS# (0-10)
[2024-05-26] MEDS: enoxaparin 40 mg/0.4 mL Syringe SUBCUT (22:13)
[2024-05-26] MEDS: trazodone 100 mg Tablet 200 MG PO (23:21)
--- NOTE | 2024-05-26 23:41 | PC.RESP ---
EKG due at 2135 not completed in ER canceled after talking to Dr. Jean-Baptiste.
[2024-05-27] VITALS (16 sets, daily range): BP systolic 96–133; BP diastolic 54–73; PULSE 77–96; RESP 16–26; TEMP 36.6–36.9; O2SAT 88–98
[2024-05-27] MEDS: ipratropium-albuterol 3 mL Neb INHALATION ×4 (00:19→20:34)
--- NOTE | 2024-05-27 11:30 | P.PN_ITS ---
Subjective 2 Subjective: Chest pain has improved. Minimal to be flushed and discomfort still present centrally. He is having wheezing, some diminished air entry on exam, but denies significant cough or sputum production. Vitals/I&O/Wt Last Vital Signs Temp 98.0 F 05/27/24 11:22 Pulse 96 05/27/24 11:22 Resp 20 H 05/27/24 11:22 BP 97/61 05/27/24 11:22 Pulse Ox 91 05/27/24 11:22 O2 Del Method Room Air 05/27/24 11:22 O2 Flow Rate 1 05/27/24 00:24 05/26/24 05/27/24 05/27/24 22:59 06:59 14:59 Intake Total 400 / 400 480 / 480 Output Total 800 / 800 Balance 400 / 400 -320 / -320 Weight last 48 hrs Weight 45.269 kg Weight 45.269 kg Weight 54.431 kg Physical Exam 2 Const: COMMON NORMALS: patient oriented x3 and alert GENERAL APPEARANCE: c ooperative NUTRITIONAL APPEARANCE: thin ORIENTATION/CONSCIOUSNESS: Yes awake HENMT: COMMON NORMALS: oropharynx normal Neck/C-Spine: COMMON NORMALS: no JVD Chest: OTHER: visible ribs Resp: AUSCULTATION: wheezes and diminished lung sounds Cardio: COMMON NORMALS: no JVD, regular rhythm, S1 normal heart sound present, S2 normal heart sound present and No murmurs present (Cardio) RHYTHM: regular rhythm HEART SOUNDS: S1 normal heart sound present and S2 normal heart sound present GI: COMMON NORMALS: Normal to inspection, nondistended, normoactive bowel sounds present, Soft to palpation and non-tender PALPATION: Yes Soft to palpation Extremity: COMMON NORMALS: no joint enlargement and no pedal edema OTHER: Sarcopenia Neuro: COMMON NORMALS: patient oriented x3 and moves all extremities S ENSORIUM/ORIENTATION: Yes alert Skin: COMMON NORMALS: no rashes or lesions noted GENERAL SKIN EXAM: no rashes or lesions noted Data 05/26/24 19:55 05/26/24 19:55 A&P Assessment and plan (1) Chest pain: Improved. 09/10 currently. Add nitroglycerin as needed. Continue to monitor on telemetry with risk of arrhythmia. Echocardiogram reviewed, has been taken but not yet read. Follow-up. Reviewed troponin series, minimal elevation up to 20. Stress test is requested for the morning as discussed with him. N.p.o. after midnight. No caffeine. Continue home Imdur Continue beta-hal Continue aspirin Echocardiogram ordered Consider formal cardiology consult pending clinical course (2) COPD (chronic obstructive pulmonary disease): Mild exacerbation with wheezing, diminished air entry on exam. He denies significant cough or sputum production. Added breathing treatment scheduled and as needed with DuoNeb. He is chronically on prednisone 5 mg. Will resume. COPD with chronic hypoxic respiratory failure Continue formulary nebulizing version the home medications Continue home low-dose prednisone Supplemental oxygen support Supportive care Qualifiers: COPD type: emphysema Emphysema type: other Qualified Code(s): J43.8 - Other emphysema (3) GERD (gastroesophageal reflux disease): Continue formulary PPI Qualifiers: Esophagitis presence: without esophagitis Qualified Code(s): K21.9 - Gastro-esophageal reflux disease without esophagitis (4) Tobacco dependence with current use: Patient would benefit from smoking cessation (5) Protein-calorie malnutrition, severe: At least moderate protein calorie malnutrition with sarcopenia, visible ribs, BMI 17. Encourage oral intake. Added Ensure with meals. Requested registered dietitian consultation Plan DVT prophylaxis: Lovenox Attestations 2 Medical Necessity Statement*: Continue admission for assessment of management of chest pain, possible unstable angina, pending further cardiac assessment including stress test tomorrow, mild COPD exacerbation and gentleman with underlying COPD on chronic steroid. Diagnoses Chest pain R07.9 Other emphysema J43.8 COPD type: emphysema Emphysema type: other Gastroesophageal reflux disease without esophagitis K21.9 Esophagitis presence: without esophagitis Tobacco dependence with current use F17.200 Protein-calorie malnutrition, severe E43
[2024-05-27] MEDS: predniSONE 5 mg Tablet PO (12:37)
[2024-05-27] MEDS: enoxaparin 40 mg/0.4 mL Syringe SUBCUT (21:16)
[2024-05-27] MEDS: trazodone 100 mg Tablet 200 MG PO (21:17)
--- NOTE | 2024-05-27 22:37 | USCV_ITS ---
Naren Pritchard Age: 68 Gender: M : 1955 Exam Date: 05/27/2024 10:40 Ordering Phys: René Jean-Baptiste MD Technologist: Xander Madera Exam Location[place] [facility] [place] Indication: chest pain BP: 119 / 63 HR: Rhythm: Sinus Technical Quality: MEASUREMENTS (Male / Female) Normal Values 2D ECHO LV Diastolic Diameter PLAX 3.5 cm 4.2 - 5.9 / 3.9 - 5.3 cm IVS Diastolic Thickness 0.8 cm 0.6 - 1.0 / 0.6 - 0.9 cm IVS Systolic Thickness 0.9 cm LVPW Diastolic Thickness 1.5 cm 0.6 - 1.0 / 0.6 - 0.9 cm LVPW Systolic Thickness 2.0 cm LVOT Diameter 2.0 cm LV Ejection Fraction 2D Teich 60.1 % LV Ejection Fraction MOD 4C 66.1 % LV Ejection Fraction MOD 2C 68.7 % LV Ejection Fraction 2C AL 68.5 % LA Diameter 3.0 cm RA Systolic Volume 4C AL 27.9 ml RA Systolic Volume 4C MOD 26.4 ml Aorta at Sinotubular Diameter 2.1 cm IVC Diameter 1.7 cm M-MODE LA Ao Ratio MM 1.3 AV Cusp Separation MM 1.9 cm FINDINGS Left Ventricle Normal left ventricular size and systolic function, EF 60%. No regional wall motion abnormalities. Right Ventricle Normal right ventricular size and systolic function. Right Atrium The right atrium is normal in size. Left Atrium The left atrium is normal in size. Mitral Valve No gross abnormalities Aortic Valve Thickened aortic valve. Tricuspid Valve No gross abnormality Pulmonic Valve No gross abnormalities noted Pericardium No pericardial effusion. Aorta Normal aortic annulus size. IVC Normal inferior vena cava. CONCLUSIONS Normal left ventricular size and systolic function, EF 60%. No regional wall motion abnormalities. Thickened aortic valve. There is no pericardial effusion. There are no intracardiac masses. Compared to the study from 12/09/2023, there may not be a significant change in the 2D findings Dr Christine Shukla MD [facility] (Electronically Signed) Final Date: 27 May 2024 16:47 S
[2024-05-28] VITALS (18 sets, daily range): BP systolic 103–139; BP diastolic 50–76; PULSE 72–92; RESP 12–24; TEMP 36.4–36.8; O2SAT 87–99
[2024-05-28] MEDS: ipratropium-albuterol 3 mL Neb INHALATION ×4 (02:10→21:28)
[2024-05-28 03:15] LABS: Basophils # 0.1 10^3/uL (0.0-0.1); Basophils % 0.6 %; Eosinophils # 0.1 10^3/uL (0.0-0.8); Eosinophils % 1.7 %; Hematocrit 39.7 % (37-53); Lymphocytes # 1.4 10^3/uL (0.8-4.8); Lymphocytes % 17.7 %; Mean Corpuscular HGB Conc 30.2 g/dL (30-55); Mean Corpuscular Hemoglobin 28.4 pg (27-33); Mean Corpuscular Volume 93.9 fl (82-101); Mean Platelet Volume 10.2 fL (7.4-10.4); Monocytes # 0.7 10^3/uL (0.2-0.9); Monocytes % 8.6 %; Neutrophils # 5.68 10^3/uL (1.8-7.7); Neutrophils % 70.9 %; Nucleated Red Blood Cells % 0 %; Platelet Count 238 10^3/cmm (157-399); Red Blood Count 4.23 10^6/uL (3.85-5.65); Red Cell Distribution Width 12.3 % (12.1-15.1); White Blood Count 8.02 10^3/uL (3.29-11.43)
[2024-05-28 03:43] LABS: Anion Gap 9.6 (5-19); Blood Urea Nitrogen 15 mg/dL (8-23); Calcium 8.5 mg/dL (8.5-10.5); Carbon Dioxide 32 mmol/L (22-29); Chloride 102 mmol/L (98-107); Creatinine Clr Calc Pharmacy 57.3722; Glomerular Filtration Rate 96.4 mL/min (90-130); Glucose 105 mg/dL (65-115); Osmolality Calculated 289 mOsm/kg (285-295); Potassium 4.6 mmol/L (3.5-5.1); Sodium 139 mmol/L (136-145)
[2024-05-28] MEDS: regadenoson 0.4 Mg/5 ml Syringe IVP (07:31)
--- NOTE | 2024-05-28 07:34 | PC.NURSE ---
Patient left unit for stress test at shift change.
--- NOTE | 2024-05-28 08:00 | ECG_ITS ---
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
--- NOTE | 2024-05-28 08:53 | PC.NURSE ---
Patient returned to unit from stress test at 0853.
[2024-05-28] MEDS: pantoprazole DR 40 mg Tablet PO (09:11)
[2024-05-28] MEDS: metoprolol succinate ER (24 HR) 25 mg Tablet 12.5 MG PO (09:11)
[2024-05-28] MEDS: predniSONE 5 mg Tablet PO (09:11)
[2024-05-28] MEDS: isosorbide mononitrate ER 30 mg Tablet PO (09:12)
--- NOTE | 2024-05-28 09:43 | NMCV_ITS ---
[facility] perf SPECT r/s* [id number] PritchardNaren horta Age: 68 Gender: M : 1955 Exam Date: 05/28/2024 06:38 Ordering Phys: Kendrick Whalen MD Technologist: EMILY Nevarez Exam Location: [facility] Indications: cp STRESS TEST [facility] IMAGE PROTOCOL Rest/Stress 1 Lexiscan Day Radiopharmaceutical Dose (mCi) Administration Site Administered by Rest: Tc-99m 9.7 IV EMILY Gordon Sestamibi Stress:Tc-99m 31.7 IV EMILY Nevarez Sestamianthony Rest: 28-May-2024 60 Discovery 630 Stress: 28-May-2024 30 Discovery 630 0.4mg Lexiscan. Supine position only as patient was unable to lay prone. SPECT RESULTS Technical Quality: Good Raw Data Analysis: Normal Image Corrections: No attenuation or motion correction applied Summed Stress Score: 0 Summed Rest Score: 2 Summed Difference Score: 0 PERFUSION FINDINGS Medium sized area of decreased tracer uptake noted in the basal to mid inferior septal wall on rest images which improved significantly over stress images suggestive of artifact. Small area of fixed perfusion defect noted in the apex of the left ventricle suggestive of apical thinning artifact FUNCTIONAL RESULTS (calculated via Gated SPECT) Stress Image LV EF (%): 67 Stress EDV (mL):67 TID: 1.12 Stress ESV (mL):22 FUNCTIONAL FINDINGS: There is normal left ventricular systolic function. TID ratio is elevated which could be secondary left ventricle hypertrophy/subendocardial ischemia IMPRESSIONS Myocardial perfusion imaging is normal suggestive of low probability for obstructive coronary artery disease. Janessa Colon MD (Electronically Signed) Final Date: 28 May 2024 14:10 S
--- NOTE | 2024-05-28 17:00 | P.PN_ITS ---
Subjective 2 Subjective: Underwent stress test earlier today. Myocardial perfusion imaging is normal suggestive of low probability for obstructive coronary artery disease.Patient was planned to be discharged, however due to the late hour he is unable to get a ride home today. Medications: Reviewed: Yes Vitals/I&O/Wt Last Vital Signs Temp 97.8 F 05/28/24 16:00 Pulse 84 05/28/24 16:00 Resp 20 H 05/28/24 16:00 BP 103/57 05/28/24 16:00 Pulse Ox 98 05/28/24 16:00 O2 Del Method Room Air 05/28/24 16:00 O2 Flow Rate 2 05/28/24 14:33 05/28/24 05/28/24 05/28/24 06:59 14:59 22:59 Intake Total 480 / 1800 220 / 220 120 / 340 Output Total 1250 / 3125 650 / 650 875 / 1525 Balance -770 / -1325 -430 / -430 -755 / -1185 Weight last 48 hrs Weight 44.271 kg Weight 45.269 kg Weight 45.269 kg Weight 54.431 kg Physical Exam 2 Narrative: General: No acute distress, AO x3 HEENT: PERRLA, pupils bilaterally equal and reactive, pallors not present Chest: Normal vesicular breath sounds, no added sounds, equal good air entry bilaterally CVS: S1-S2 regular, no murmurs, no tachycardia, no gallops, no rubs Abdomen: Soft, nontender, no organomegaly, bowel sounds present Neuro: No focal deficits, no facial deformity, AO x3, power 5/5 in all limbs Data 05/28/24 02:50 05/28/24 02:50 A&P Assessment and plan (1) Chest pain: Improved. 09/10 currently. Add nitroglycerin as needed. Continue to monitor on telemetry with risk of arrhythmia. Echocardiogram reviewed, has been taken but not yet read. Follow-up. Reviewed troponin series, minimal elevation up to 20. Stress test is requested for the morning as discussed with him. N.p.o. after midnight. No caffeine. Continue home Imdur Continue beta-hal Continue aspirin Echocardiogram ordered Consider formal cardiology consult pending clinical course (2) COPD (chronic obstructive pulmonary disease): Mild exacerbation with wheezing, diminished air entry on exam. He denies significant cough or sputum production. Added breathing treatment scheduled and as needed with DuoNeb. He is chronically on prednisone 5 mg. Will resume. COPD with chronic hypoxic respiratory failure Continue formulary nebulizing version the home medications Continue home low-dose prednisone Supplemental oxygen support Supportive care Qualifiers: COPD type: emphysema Emphysema type: other Qualified Code(s): J43.8 - Other emphysema (3) GERD (gastroesophageal reflux disease): Continue formulary PPI Qualifiers: Esophagitis presence: without esophagitis Qualified Code(s): K21.9 - Gastro-esophageal reflux disease without esophagitis (4) Tobacco dependence with current use: Patient would benefit from smoking cessation (5) Protein-calorie malnutrition, severe: At least moderate protein calorie malnutrition with sarcopenia, visible ribs, BMI 17. Encourage oral intake. Added Ensure with meals. Requested registered dietitian consultation Plan DVT prophylaxis: Lovenox Plan for today May 28, 2024. Patient underwent cardiac stress test today which overall did not show any signs of reversible ischemia. Patient is chest pain-free today. He was planned to be discharged today, however is unable to get a ride home due to the late hour. We will plan to discharge patient early tomorrow morning. Continue his scheduled nebulization, metoprolol, Imdur in the interim. Attestations 2 Medical Necessity Statement*: Planned discharge as above Coding Level of Care Code Acute Code for Chg Fwd Straight Forward/Low MDM includes number and complexity of problems actively addressed during encounter, amount and/or complexity of data reviewed/ordered and described risk of complication, morbidity or mortality of management as documented Diagnoses Chest pain R07.9 Other emphysema J43.8 COPD type: emphysema Emphysema type: other Gastroesophageal reflux disease without esophagitis K21.9 Esophagitis presence: without esophagitis Tobacco dependence with current use F17.200 Protein-calorie malnutrition, severe E43
[2024-05-28] MEDS: enoxaparin 40 mg/0.4 mL Syringe SUBCUT (20:56)
[2024-05-28] MEDS: trazodone 100 mg Tablet 200 MG PO (20:56)
[2024-05-29] VITALS (11 sets, daily range): BP systolic 97–116; BP diastolic 46–66; PULSE 75–88; RESP 11–27; TEMP 36.4–37.1; O2SAT 94–97
[2024-05-29] MEDS: ipratropium-albuterol 3 mL Neb INHALATION ×2 (02:14→07:25)
[2024-05-29 04:06] LABS: Basophils # 0.1 10^3/uL (0.0-0.1); Basophils % 0.7 %; Eosinophils # 0.3 10^3/uL (0.0-0.8); Eosinophils % 3.3 %; Hematocrit 39.1 % (37-53); Lymphocytes # 2.1 10^3/uL (0.8-4.8); Lymphocytes % 24.2 %; Mean Corpuscular HGB Conc 30.2 g/dL (30-55); Mean Corpuscular Hemoglobin 28.7 pg (27-33); Mean Corpuscular Volume 95.1 fl (82-101); Mean Platelet Volume 9.6 fL (7.4-10.4); Monocytes # 0.8 10^3/uL (0.2-0.9); Monocytes % 8.7 %; Neutrophils # 5.35 10^3/uL (1.8-7.7); Neutrophils % 62.4 %; Nucleated Red Blood Cells % 0 %; Platelet Count 304 10^3/cmm (157-399); Red Blood Count 4.11 10^6/uL (3.85-5.65); Red Cell Distribution Width 12.3 % (12.1-15.1); White Blood Count 8.58 10^3/uL (3.29-11.43)
[2024-05-29 04:37] LABS: Anion Gap 10.5 (5-19); Blood Urea Nitrogen 14 mg/dL (8-23); Calcium 8.3 mg/dL (8.5-10.5); Carbon Dioxide 34 mmol/L (22-29); Chloride 102 mmol/L (98-107); Creatinine Clr Calc Pharmacy 45.2529; Glomerular Filtration Rate 74.5 mL/min (90-130); Glucose 108 mg/dL (65-115); Osmolality Calculated 295 mOsm/kg (285-295); Potassium 4.5 mmol/L (3.5-5.1); Sodium 142 mmol/L (136-145)
[2024-05-29] MEDS: metoprolol succinate ER (24 HR) 25 mg Tablet 12.5 MG PO (08:19)
[2024-05-29] MEDS: isosorbide mononitrate ER 30 mg Tablet PO (08:19)
[2024-05-29] MEDS: pantoprazole DR 40 mg Tablet PO (08:19)
[2024-05-29] MEDS: predniSONE 5 mg Tablet PO (08:19)
--- NOTE | 2024-05-29 08:49 | P.DS_ITS ---
Discharge Providers Date of Admission: 05/26/24 21:37 Date of Discharge: May 29, 2024 Attending Provider at Admission: René Jean-Baptiste MD Attending Provider at Discharge: Margie Simmons MD Primary Care Provider: Ellie Irene MD Diagnoses at Discharge Discharge Diagnosis (1) Chest pain: Status: Acute (2) COPD (chronic obstructive pulmonary disease): Status: Chronic Qualifiers: COPD type: emphysema Emphysema type: other Qualified Code(s): J43.8 - Other emphysema (3) GERD (gastroesophageal reflux disease): Status: Chronic Qualifiers: Esophagitis presence: without esophagitis Qualified Code(s): K21.9 - Gastro-esophageal reflux disease without esophagitis (4) Tobacco dependence with current use: Status: Acute (5) Protein-calorie malnutrition, severe: Status: Acute Reason for Visit Reason for Visit: chest pain Brief History: Naren Pritchard is a 68 year old male with a past medical history significant for COPD, hypertension, hepatitis C, depression, GERD, peptic ulcer disease and tobacco use disorder who presented emergency department with chest pain. Describes the pain as left-sided, substernal, and sharp in nature. Exertion worsens symptoms. Rest improves. Endorses associated shortness of breath. He underwent stress test on 05/28 which showed low probability for obstructive coronary artery disease. Patient is now chest pain free. He will be discharged today with recommendations to follow up with cardiology as outpatient. Physical Exam Narrative: General: No acute distress, AO x3, chronically ill appearing HEENT: PERRLA, pupils bilaterally equal and reactive, pallors not present Chest: Normal vesicular breath sounds, no added sounds, equal good air entry bilaterally CVS: S1-S2 regular, no murmurs, no tachycardia, no gallops, no rubs Abdomen: Soft, nontender, no organomegaly, bowel sounds present Neuro: No focal deficits, no facial deformity, AO x3, power 5/5 in all limbs Discharge Data Studies Completed and Pending Completed Studies During Hospitalization Category Date Time Status Cardiac Stress Test MIBI [Sestamibi Stress Test Request Exams 05/28/24 08:00 Draft ] Routine XR chest 1V portable [id number] Stat Exams 05/26/24 19:36 Completed NM [facility] perf SPECT r/s* [id number] Routine Nuc Med 05/28/24 09:43 Completed CV. echo limited [id number] Routine Ultrasound 05/27/24 22:37 Completed Pending at discharge Category Date Time Status Basic Metabolic Panel AM LABS Lab 05/30/24 04:00 Ordered Complete Blood Count w/Auto AM LABS Lab 05/30/24 04:00 Ordered Radiology Impressions Chest X-Ray 05/26/24 19:36 IMPRESSION: No acute findings. Laboratory Results WBC 8.58 10^3/uL (3.29-11.43) 05/29/24 03:20 RBC 4.11 10^6/uL (3.85-5.65) 05/29/24 03:20 Hgb 11.80 g/dL (11.27-16.99) 05/29/24 03:20 Hct 39.1 % (37-53) 05/29/24 03:20 MCV 95.1 fl (82-101) 05/29/24 03:20 MCH 28.7 pg (27-33) 05/29/24 03:20 MCHC 30.2 g/dL (30-55) 05/29/24 03:20 RDW 12.3 % (12.1-15.1) 05/29/24 03:20 Plt Count 304 10^3/cmm (157-399) 05/29/24 03:20 MPV 9.6 fL (7.4-10.4) 05/29/24 03:20 Neut % (Auto) 62.4 % 05/29/24 03:20 Lymph % (Auto) 24.2 % 05/29/24 03:20 Pickett % (Auto) 8.7 % 05/29/24 03:20 Eos % (Auto) 3.3 % 05/29/24 03:20 Baso % (Auto) 0.7 % 05/29/24 03:20 Neut # (Auto) 5.35 10^3/uL (1.8-7.7) 05/29/24 03:20 Lymph # (Auto) 2.1 10^3/uL (0.8-4.8) 05/29/24 03:20 Pickett # (Auto) 0.8 10^3/uL (0.2-0.9) 05/29/24 03:20 Eos # (Auto) 0.3 10^3/uL (0.0-0.8) 05/29/24 03:20 Baso # (Auto) 0.1 10^3/uL (0.0-0.1) 05/29/24 03:20 Nucleated RBC % (auto) 0 % 05/29/24 03:20 Nucleated RBCs # 0.0 /100WBC 05/29/24 03:20 PT 12.00 SECONDS (12.1-14.9) L 05/26/24 19:55 INR 0.86 (0.8-1.2) 05/26/24 19:55 Sodium 142 mmol/L (136-145) 05/29/24 03:20 Potassium 4.5 mmol/L (3.5-5.1) 05/29/24 03:20 Chloride 102 mmol/L (98-107) 05/29/24 03:20 Carbon Dioxide 34 mmol/L (22-29) H 05/29/24 03:20 Anion Gap 10.5 (5-19) 05/29/24 03:20 BUN 14 mg/dL (8-23) 05/29/24 03:20 Creatinine 1.0 mg/dL (0.7-1.2) 05/29/24 03:20 GFR Calculation 74.5 mL/min (90-130) L 05/29/24 03:20 Glucose 108 mg/dL (65-115) 05/29/24 03:20 Calculated Osmolality 295 mOsm/kg (285-295) 05/29/24 03:20 Calcium 8.3 mg/dL (8.5-10.5) L 05/29/24 03:20 Total Bilirubin 0.2 mg/dL (0.15-1.2) 05/26/24 19:55 AST 16 U/L (0-40) 05/26/24 19:55 ALT 12 U/L (0-41) 05/26/24 19:55 Alkaline Phosphatase 113 U/L (40-130) 05/26/24 19:55 Troponin T Baseline 22 ng/L (0-15) H 05/26/24 19:55 Troponin T 120 Minute 20.18 ng/L (0-15) H 05/26/24 21:34 Delta Troponin T -1.82 ABS# (0-10) L 05/26/24 21:34 Total Protein 7.0 g/dL (6.6-8.7) 05/26/24 19:55 Albumin 4.5 g/dL (3.5-5.2) 05/26/24 19:55 Globulin 2.5 g/dL (1.3-4.6) 05/26/24 19:55 Vitals Last Vital Signs Temp 97.7 F 05/29/24 07:39 Pulse 78 05/29/24 07:39 Resp 11 L 05/29/24 07:39 BP 116/59 05/29/24 07:39 Pulse Ox 95 05/29/24 07:39 O2 Del Method Nasal Cannula 05/29/24 07:25 O2 Flow Rate 2 05/29/24 07:25 Discharge Plan Discharge Patient Disposition: Home Condition: Stable Prescriptions: Continued albuterol sulfate 2.5 mg /3 mL (0.083 %) solution for nebulization 2.5 mg inhalation Q4H PRN (Reason: shortness of breath or wheezing) Qty: 300 5RF (DME) nebulizers Misc See Rx Instructions .ROUTE .MEDSUPPLY Qty: 1 0RF Rx Instructions: As directed (DME) Disposable nebulizer circuit See Rx Instructions .ROUTE .MEDSUPPLY Qty: 1 0RF Rx Instructions: As directed Combivent Respimat 20-100 mcg/actuation mist 1 puff INHALATION Q6H Qty: 4 5RF isosorbide mononitrate 30 mg tablet extended release 24 hr 30 mg PO DAILY Qty: 90 3RF nitroglycerin 0.4 mg tablet, sublingual 0.4 mg sublingual Q5M PRN (Reason: chest pain) Qty: 20 2RF Rx Instructions: do not exceed 3 doses per episode metoprolol succinate 25 mg tablet extended release 24 hr 12.5 mg PO DAILY Qty: 45 1RF albuterol sulfate 90 mcg/actuation HFA aerosol inhaler 2 inh inhalation Q6H PRN (Reason: shortness of breath or wheezing) Qty: 8.5 6RF melatonin 5 mg Tablet 5 mg PO DAILY coenzyme Q10 100 mg Tablet 100 mg PO DAILY aspirin 81 mg Tablet,Delayed Release (Dr/Ec) 81 mg PO DAILY cholecalciferol (vitamin D3) [Vitamin D3] 25 mcg (1,000 unit) Capsule 25 mcg PO DAILY sumatriptan succinate [Imitrex] 50 mg Tablet 50 mg PO Q3D PRN (Reason: headaches) Rx Instructions: PATIENT TO TAKE ONCE EVERY THREE DAYS trazodone 100 mg tablet 200 mg PO BEDTIME omeprazole 20 mg capsule,delayed release(DR/EC) See Rx Instructions .ROUTE .COMPLEX Rx Instructions: 40mg every morning and 20 mg every night prednisone 10 mg Tablet 5 mg PO DAILY Discharge Orders: Discharge Order (Routine); Ordered 05/29/24 Ordered By: Margie Simmons Referrals: Ellie Irene MD [Primary Care Provider] - Janessa Colon MD [Physician] - 7-10 days Patient Instructions: Chest Pain (DC), Chest Pain Stoplight, Opioid Safety Discharge Attestations Time Spent in Discharge Care*: less than 30 min Status at Discharge: Cognitive status at discharge: cognitively intact , Behavioral status at discharge: cooperative , Quality Metrics Clinical Quality Measures [ No reported AMI, CVA or VTE this stay] Coding Level of Care Code Acute Code for Chg Fwd Diagnoses Chest pain R07.9 Other emphysema J43.8 COPD type: emphysema Emphysema type: other Gastroesophageal reflux disease without esophagitis K21.9 Esophagitis presence: without esophagitis Tobacco dependence with current use F17.200 Protein-calorie malnutrition, severe E43
== END 2024-05-29 11:55 | disposition home or self-care (01) ==
LOC: ER 20:51 → CSU 05-27 09:27
PROVIDERS: Internal Medicine; Admitting Provider Internal Medicine; Emergency Provider Emergency Medicine; PCP Family Medicine; Visit Provider Student in an Organized Health Care Education/Training Program
DX: R07.9 Chest pain, unspecified (principal); J44.9 Chronic obstructive pulmonary disease, unspecified; J96.11 Chronic respiratory failure with hypoxia; K21.9 Gastro-esophageal reflux disease without esophagitis; F17.200 Nicotine dependence, unspecified, uncomplicated; E46 Unspecified protein-calorie malnutrition; Z68.1 Body mass index [BMI] 19.9 or less, adult; I10 Essential (primary) hypertension; Z86.19 Personal history of other infectious and parasitic diseases; Z87.11 Personal history of peptic ulcer disease; Z79.52 Long term (current) use of systemic steroids
CPT/HCPCS: 36415; 71045; 78452; 80048; 80053; 84484; 85025; 85610; 93005; 93017; 93308; 94640; 94760; 96372; 96375; 96376; A9500; G0378; J1650; J2270; J2405; J2785; J7512

== ENCOUNTER 2024-06-03 02:06 | Emergency (ER) | payer OTHER, SELFPAY ==
[2024-06-03] VITALS (9 sets, daily range): BP systolic 127–143; BP diastolic 73–82; PULSE 84–93; RESP 17–26; O2SAT 90–100; BMI 20.5
--- NOTE | 2024-06-03 02:20 | ECG_ITS ---
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 Measurements Intervals [place] Rate: 83 P: 85 CA: 179 QRS: 89 QRSD: 84 T: 73 QT: 328 QTc: 387 Interpretive Statements SINUS RHYTHM POSSIBLE LEFT ATRIAL ENLARGEMENT [-0.1mV P-WAVE IN V1/V2] Compared to ECG 05/26/2024 19:45:13 No significant changes Electronically Signed On 06-03-2024 14:02:50 PHYSICAL EDUCATION DEPARTMENT CHAIR by Meena Marie M.D. [email or web address]
--- NOTE | 2024-06-03 02:32 | XRR_ITS ---
PROCEDURE INFORMATION: Exam: XR Chest Exam date and time: 06/03/2024 2:39 AM Age: 68 years old Clinical indication: Chest pressure; Patient HX: C/O chest pain; Additional info: Cp TECHNIQUE: Imaging protocol: Radiologic exam of the chest. Views: 1 view. COMPARISON: CR (CHEST, ) 05/26/2024 7:54 PM FINDINGS: Lungs: Unremarkable. No consolidation. Pleural spaces: Unremarkable. No pleural effusion. No pneumothorax. Heart/Mediastinum: Unremarkable. No cardiomegaly. Bones/joints: Unremarkable. XR/XR chest 1V portable [id number] IMPRESSION: No acute findings.
--- NOTE | 2024-06-03 02:51 | ED_ITS ---
HPI - Chest Pain 2 General: Chief Complaint: Chest Pain Stated Complaint: CHEST PAIN Time Seen by Provider: 06/03/24 02:19 History of Present Illness: 68-year-old male who was just recently r eleased from the hospital essentially 3 days ago. At that point he did come in for chest pain that was sharp, exertional. He has a history of COPD. He had a stress test that was negative for inducible ischemia at that point. He returns with chest pain that started earlier in the evening while at rest sitting with his . He has a chronic cough not worsened currently. He was short of breath with chest discomfort. He rates his pain a 6 currently. He denies fever or leg swelling. Related Data Home Medications Medication Instructions Recorded Confirmed sumatriptan succinate 50 mg tablet 50 mg PO Q3D PRN headaches 08/13/19 05/26/24 (Imitrex) aspirin 81 mg tablet,delayed 81 mg PO DAILY 11/27/19 05/26/24 release cholecalciferol (vitamin D3) 25 25 mcg PO DAILY 11/27/19 05/26/24 mcg (1,000 unit) capsule (Vitamin D3) coenzyme Q10 100 mg tablet 100 mg PO DAILY 04/19/24 05/26/24 melatonin 5 mg tablet 5 mg PO DAILY 04/19/24 05/26/24 omeprazole 20 mg capsule,delayed See Rx Instructions .Route .COMPLEX 05/15/24 05/26/24 release prednisone 10 mg tablet 5 mg PO DAILY 05/15/24 05/26/24 trazodone 100 mg tablet 200 mg PO BEDTIME 05/15/24 05/26/24 Previous Rx's Medication Instructions Recorded albuterol sulfate 2.5 mg/3 mL 2.5 mg (3 mL) inhalation Q4H PRN 06/08/22 (0.083 %) solution for nebulization shortness of breath or wheezing #300 mL nebulizers #1 ea 06/08/22 Disposable nebulizer circuit #1 ea 11/08/23 ipratropium 20 mcg-albuterol 100 1 puff inhalation Q6H #4 grams 01/01/24 mcg/actuation mist for inhalation (Combivent Respimat) albuterol sulfate 90 mcg/actuation 2 inh inhalation Q6H PRN shortness 03/23/24 aerosol inhaler of breath or wheezing #8.5 grams isosorbide mononitrate 30 mg 30 mg PO DAILY #90 tabs 05/23/24 tablet,extended release 24 hr metoprolol succinate 25 mg 12.5 mg (1/2 x 25 mg) PO DAILY #45 05/23/24 tablet,extended release 24 hr tabs nitroglycerin 0.4 mg sublingual 0.4 mg sublingual Q5M PRN chest 05/23/24 tablet pain #20 tabs doxycycline hyclate 100 mg tablet 100 mg PO BID 7 days #14 tabs 06/03/24 methylprednisolone 4 mg tablets in See Rx Instructions PO .COMPLEX 06/03/24 a dose pack (Medrol (Gunnar)) #21 ea Allergies Allergy/AdvReac Type Severity Reaction Status Date / Time No Known Allergies Allergy Verified 05/23/24 13:28 PFS ED 2 PFSH: Medical History Essential hypertension History of migraine headaches Vitamin D deficiency Hepatitis C Treatment status unknown Hx of colonic polyps Sessile on colonoscopy 02/16 Depression GERD (gastroesophageal reflux disease) Peptic ulcer disease Gastric ulcer on EGD 02/16 COPD (chronic obstructive pulmonary disease) Surgical History History of colonoscopy with polypectomy 2019 Status post excision of lipoma (~01/2019) Hx of appendectomy Family History Father Tuberculosis Denies family history of Diabetes Cancer Social History Smoking and tobacco/nicotine status: current every day tobacco/nicotine user cigarettes Packs smoked per day: 1.5 Years cigarettes smoked: 46 [ Other cigarette details: started at age 22] Second hand smoke exposure: No Alcohol intake: current Alcohol intake frequency: holidays/special occasions only Substance/Drug Use: unknown Adopted: No Caregiver/support person: No Lives independently: Yes Household members: spouse Housing: House Marital status: service: No Current occupational status: retired Pets and animals: Yes Do you think of yourself as: Straight/Heterosexual Current gender identity: Male Physical Exam 2 Const: COMMON NORMALS: alert GENERAL APPEARANCE: cooperative and frail appearing (Mildly) HENMT: COMMON NORMALS: normocephalic, atraumatic and Normal external nose present HEAD & SCALP: normocephalic and atraumatic FACE & SINUS: normal facial exam and face symmetric NOSE: Normal external nose present Eye: COMMON NORMALS: Equal, round and reactive pupils present and EOMs intact bilaterally PUPIL: Yes Equal, round and reactive pupils present Neck/C-Spine: GENERAL: Yes trachea midline Chest: CHEST: Yes Symmetrical chest wall rise Resp: EFFORT & INSPECTION: Yes symmetric chest movement and Yes tachypneic AUSCULTATION: wheezes (Intermittent) Cardio: COMMON NORMALS: regular rate and regular rhythm RATE: regular rate RHYTHM: regular rhythm GI: COMMON NORMALS: Normal to inspection, nondistended, normoactive bowel sounds present Extremity: COMMON NORMALS: no pedal edema Neuro: AKI COMA SCALE: document GCS findings [place] coma scale eye opening: Spontaneous [place] coma scale verbal response: Orientated [place] coma scale motor response: Obey commands [place] coma scale total score: 15 S ENSORIUM/ORIENTATION: Yes alert SENSORY EXAM: Yes extremities (intact) Psych: COMMON NORMALS: speech normal SPEECH: Yes normal speech Skin: COMMON NORMALS: no rashes or lesions noted GENERAL SKIN EXAM: no rashes or lesions noted Course 2 Vital Signs: Vital signs: Vital Signs Pulse Rate 89 06/03/24 06:03 Respiratory Rate 26 H 06/03/24 06:00 Blood Pressure 143/75 06/03/24 06:03 Pulse Oximetry 92 06/03/24 06:03 Oxygen Delivery Me thod Nasal Cannula 06/03/24 04:00 Oxygen Flow Rate 2 06/03/24 04:00 MDM - Chest Pain Medical Decision Making Patient is mildly hypertensive. Other vitals are stable. Chest x-ray does not reveal significant infiltrate. He is given aspirin, Nitropaste, and a small dose of morphine with improvement in his discomfort. CBC is normal. BMP is not remarkable. First troponin is 19 which is near his baseline. BNP is 15. He is received a breathing treatment with some improvement. Awaiting a second troponin. There are no acute ST wave changes. Patient's delta troponin is 2. He had a negative stress test 5 days ago. Symptoms are more likely related to COPD. He will be treated as such. He is on home O2 settings. He'll be discharged. Return if worsening. Lab Data 06/03/24 02:45 06/03/24 02:45 Radiology Impressions Chest X-Ray 06/03/24 02:32 IMPRESSION: No acute findings. Laboratory Results WBC 9.27 10^3/uL (3.29-11.43) 06/03/24 02:45 RBC 4.51 10^6/uL (3.85-5.65) 06/03/24 02:45 Hgb 12.90 g/dL (11.27-16.99) 06/03/24 02:45 Hct 43.9 % (37-53) 06/03/24 02:45 MCV 97.3 fl (82-101) 06/03/24 02:45 MCH 28.6 pg (27-33) 06/03/24 02:45 MCHC 29.4 g/dL (30-55) L 06/03/24 02:45 RDW 12.7 % (12.1-15.1) 06/03/24 02:45 Plt Count 303 10^3/cmm (157-399) 06/03/24 02:45 MPV 9.8 fL (7.4-10.4) 06/03/24 02:45 Neut % (Auto) 64.6 % 06/03/24 02:45 Lymph % (Auto) 22.4 % 06/03/24 02:45 [place] % (Auto) 8.4 % 06/03/24 02:45 Eos % (Auto) 2.8 % 06/03/24 02:45 Baso % (Auto) 1.2 % 06/03/24 02:45 Neut # (Auto) 5.98 10^3/uL (1.8-7.7) 06/03/24 02:45 Lymph # (Auto) 2.1 10^3/uL (0.8-4.8) 06/03/24 02:45 [place] # (Auto) 0.8 10^3/uL (0.2-0.9) 06/03/24 02:45 Eos # (Auto) 0.3 10^3/uL (0.0-0.8) 06/03/24 02:45 Baso # (Auto) 0.1 10^3/uL (0.0-0.1) 06/03/24 02:45 Nucleated RBC % (auto) 0 % 06/03/24 02:45 Nucleated RBCs # 0.0 /100WBC 06/03/24 02:45 Sodium 144 mmol/L (136-145) 06/03/24 02:45 Potassium 5.1 mmol/L (3.5-5.1) 06/03/24 02:45 Chloride 102 mmol/L (98-107) 06/03/24 02:45 Carbon Dioxide 32 mmol/L (22-29) H 06/03/24 02:45 Anion Gap 15.1 (5-19) 06/03/24 02:45 BUN 16 mg/dL (8-23) 06/03/24 02:45 Creatinine 0.8 mg/dL (0.7-1.2) 06/03/24 02:45 GFR Calculation 96.4 mL/min (90-130) 06/03/24 02:45 Glucose 89 mg/dL (65-115) 06/03/24 02:45 Calculated Osmolality 299 mOsm/kg (285-295) H 06/03/24 02:45 Calcium 9.0 mg/dL (8.5-10.5) 06/03/24 02:45 Troponin T Baseline 19 ng/L (0-15) H 06/03/24 02:45 Troponin T 120 Minute 21.07 ng/L (0-15) H 06/03/24 04:31 Delta Troponin T 2.07 ABS# (0-10) 06/03/24 04:31 NT-Pro-B Natriuret Pep 115 pg/mL (0-125) 06/03/24 02:45 All radiology interpretation(s) finalized by discharge Discharge Plan Discharge Patient Disposition: Home Clinical Impression: Chest pain COPD (chronic obstructive pulmonary disease) Qualifiers: COPD type: emphysema Emphysema type: other Qualified Code(s): J43.8 - Other emphysema Condition: Stable Prescriptions: New methylprednisolone [Medrol (Gunnar)] 4 mg tablets,dose pack See Rx Instructions .ROUTE .COMPLEX Qty: 21 0RF Rx Instructions: orally per package directions doxycycline hyclate 100 mg tablet 100 mg PO BID 7 Days Qty: 14 0RF No Action albuterol sulfate 2.5 mg /3 mL (0.083 %) solution for nebulization 2.5 mg inhalation Q4H PRN (Reason: shortness of breath or wheezing) Qty: 300 5RF (DME) nebulizers Misc See Rx Instructions .ROUTE .MEDSUPPLY Qty: 1 0RF Rx Instructions: As directed (DME) Disposable nebulizer circuit See Rx Instructions .ROUTE .MEDSUPPLY Qty: 1 0RF Rx Instructions: As directed Combivent Respimat 20-100 mcg/actuation mist 1 puff INHALATION Q6H Qty: 4 5RF isosorbide mononitrate 30 mg tablet extended release 24 hr 30 mg PO DAILY Qty: 90 3RF nitroglycerin 0.4 mg tablet, sublingual 0.4 mg sublingual Q5M PRN (Reason: chest pain) Qty: 20 2RF Rx Instructions: do not exceed 3 doses per episode metoprolol succinate 25 mg tablet extended release 24 hr 12.5 mg PO DAILY Qty: 45 1RF albuterol sulfate 90 mcg/actuation HFA aerosol inhaler 2 inh inhalation Q6H PRN (Reason: shortness of breath or wheezing) Qty: 8.5 6RF melatonin 5 mg Tablet 5 mg PO DAILY coenzyme Q10 100 mg Tablet 100 mg PO DAILY aspirin 81 mg Tablet,Delayed Release (Dr/Ec) 81 mg PO DAILY cholecalciferol (vitamin D3) [Vitamin D3] 25 mcg (1,000 unit) Capsule 25 mcg PO DAILY sumatriptan succinate [Imitrex] 50 mg Tablet 50 mg PO Q3D PRN (Reason: headaches) Rx Instructions: PATIENT TO TAKE ONCE EVERY THREE DAYS trazodone 100 mg tablet 200 mg PO BEDTIME omeprazole 20 mg capsule,delayed release(DR/EC) See Rx Instructions .ROUTE .COMPLEX Rx Instructions: 40mg every morning and 20 mg every night prednisone 10 mg Tablet 5 mg PO DAILY Discharge Orders: Discharge ED (Routine); Ordered 06/03/24 Ordered By: Feliz Beck Referrals: Ellie Irene MD [Primary Care Provider] - 1-3 days Patient Instructions: Chest Pain (ED), COPD (Chronic Obstructive Pulmonary Disease) (ED), Opioid Safety, Pain Management Activity Restrictions/Additional Instructions: Use your albuterol nebulizer every 4 hours while awake for the next 48 hours whether you feel you needed or not, then you may use it as you needed. Medication as directed. Return for worsening pain despite treatment, worsening shortness of breath despite treatment, fever despite 2-3 doses of antibiotics, other concerning symptoms. Call your doctor tomorrow morning for follow-up appointment this week. 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
[2024-06-03] MEDS: morphine 4 mg/mL SDV 1 mL 2 MG IVP (02:54)
[2024-06-03] MEDS: aspirin 81 mg Chew Tablet 324 MG PO (02:54)
[2024-06-03] MEDS: nitroglycerin 1 gm/inch oint Pkt 1 INCH TOPICAL (02:55)
[2024-06-03] MEDS: ondansetron 2 mg/ML SDV 2 mL 4 MG IVP (02:55)
[2024-06-03 03:15] LABS: Basophils # 0.1 10^3/uL (0.0-0.1); Basophils % 1.2 %; Eosinophils # 0.3 10^3/uL (0.0-0.8); Eosinophils % 2.8 %; Hematocrit 43.9 % (37-53); Lymphocytes # 2.1 10^3/uL (0.8-4.8); Lymphocytes % 22.4 %; Mean Corpuscular HGB Conc 29.4 g/dL (30-55); Mean Corpuscular Hemoglobin 28.6 pg (27-33); Mean Corpuscular Volume 97.3 fl (82-101); Mean Platelet Volume 9.8 fL (7.4-10.4); Monocytes # 0.8 10^3/uL (0.2-0.9); Monocytes % 8.4 %; Neutrophils # 5.98 10^3/uL (1.8-7.7); Neutrophils % 64.6 %; Nucleated Red Blood Cells % 0 %; Platelet Count 303 10^3/cmm (157-399); Red Blood Count 4.51 10^6/uL (3.85-5.65); Red Cell Distribution Width 12.7 % (12.1-15.1); White Blood Count 9.27 10^3/uL (3.29-11.43)
[2024-06-03 03:30] LABS: Troponin(5th) Baseline 19 ng/L (0-15)
[2024-06-03 03:35] LABS: Blood Urea Nitrogen 16 mg/dL (8-23); Carbon Dioxide 32 mmol/L (22-29); Chloride 102 mmol/L (98-107); Creatinine Clr Calc Pharmacy 72.6102; Glomerular Filtration Rate 96.4 mL/min (90-130); Glucose 89 mg/dL (65-115); NT Pro B Type Natriuretic Pept 115 pg/mL (0-125); Osmolality Calculated 299 mOsm/kg (285-295); Sodium 144 mmol/L (136-145)
[2024-06-03 03:36] LABS: Anion Gap 15.1 (5-19); Potassium 5.1 mmol/L (3.5-5.1)
[2024-06-03] MEDS: ipratropium-albuterol 3 mL Neb INHALATION (04:00)
--- NOTE | 2024-06-03 04:14 | ECG_ITS ---
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 [email or web address]
[2024-06-03 04:52] LABS: Troponin 5 2HR 21.07 ng/L (0-15); Troponin 5 2HR Delta 2.07 ABS# (0-10)
[2024-06-03] MEDS: doxycycline 100 mg Tablet PO (05:55)
[2024-06-03] MEDS: methylPREDNISolone sod succ 125 mg/2 mL INJ 80 MG IVP (05:56)
== END 2024-06-03 08:22 | disposition home or self-care (01) ==
PROVIDERS: Emergency Provider Emergency Medicine; PCP Family Medicine
DX: R07.9 Chest pain, unspecified (principal); J43.8 Other emphysema; Z79.82 Long term (current) use of aspirin; F17.210 Nicotine dependence, cigarettes, uncomplicated; I10 Essential (primary) hypertension
CPT/HCPCS: 71045; 80048; 83880; 84484; 85025; 93005; 94640; 96374; 96375; 99285; J2270; J2405; J2919

== ENCOUNTER 2024-07-05 16:10 | Emergency (ER) | payer OTHER, MEDICARE, MEDICAID, SELFPAY ==
[2024-07-05 16:14] VITALS: BP 92/56; PULSE 71; RESP 18; TEMP 36.8; O2SAT 94; BMI 17.2
--- NOTE | 2024-07-05 16:18 | XRR_ITS ---
PROCEDURE INFORMATION: Exam: XR Chest Exam date and time: 07/05/2024 4:40 PM Age: 68 years old Clinical indication: Shortness of breath; Additional info: SOB TECHNIQUE: Imaging protocol: Radiologic exam of the chest. Views: 1 view. COMPARISON: CR (CHEST, ) 06/03/2024 2:39 AM FINDINGS: Lungs: Increased lung volumes which may be related to chronic obstructive pulmonary disease. No lobar consolidation. Pleural spaces: Unremarkable. No pleural effusion. No pneumothorax. Heart/Mediastinum: Unremarkable. No cardiomegaly. Bones/joints: Unremarkable. XR/XR chest 1V portable [id number] IMPRESSION: As above.
--- NOTE | 2024-07-05 16:24 | W.ED.SOB ---
HPI - SOB/Dyspnea General: Chief Complaint: Shortness of Breath/Dyspnea Stated Complaint: SOB Time Seen by Provider: 07/05/24 16:14 Source: patient Mode of arrival: ambulatory Limitations: no limitations History of Present Illness: HPI Narrative: 68-year-old male has a history of COPD and wears 2 L oxygen at baseline states that he ran out of his albuterol inhaler and does not get it filled tomorrow states he is having some mild shortness of breath today patient is 96% here on 2 L she did receive a breathing treatment and route denies any fever denies any increased cough Associated symptoms: Deny abdominal pain, chest pain, fever(s), nausea or vomiting Related Data Home Medications Medication Instructions Recorded Confirmed sumatriptan succinate 50 mg tablet 50 mg PO Q3D PRN headaches 08/13/19 05/26/24 (Imitrex) aspirin 81 mg tablet,delayed 81 mg PO DAILY 11/27/19 05/26/24 release cholecalciferol (vitamin D3) 25 25 mcg PO DAILY 11/27/19 05/26/24 mcg (1,000 unit) capsule (Vitamin D3) coenzyme Q10 100 mg tablet 100 mg PO DAILY 04/19/24 05/26/24 melatonin 5 mg tablet 5 mg PO DAILY 04/19/24 05/26/24 omeprazole 20 mg capsule,delayed See Rx Instructions .Route .COMPLEX 05/15/24 05/26/24 release prednisone 10 mg tablet 5 mg PO DAILY 05/15/24 05/26/24 trazodone 100 mg tablet 200 mg PO BEDTIME 05/15/24 05/26/24 Previous Rx's Medication Instructions Recorded albuterol sulfate 2.5 mg/3 mL 2.5 mg (3 mL) inhalation Q4H PRN 06/08/22 (0.083 %) solution for nebulization shortness of breath or wheezing #300 mL nebulizers #1 ea 06/08/22 Disposable nebulizer circuit #1 ea 11/08/23 ipratropium 20 mcg-albuterol 100 1 puff inhalation Q6H #4 grams 01/01/24 mcg/actuation mist for inhalation (Combivent Respimat) albuterol sulfate 90 mcg/actuation 2 inh inhalation Q6H PRN shortness 03/23/24 aerosol inhaler of breath or wheezing #8.5 grams isosorbide mononitrate 30 mg 30 mg PO DAILY #90 tabs 05/23/24 tablet,extended release 24 hr metoprolol succinate 25 mg 12.5 mg (1/2 x 25 mg) PO DAILY #45 05/23/24 tablet,extended release 24 hr tabs nitroglycerin 0.4 mg sublingual 0.4 mg sublingual Q5M PRN chest 05/23/24 tablet pain #20 tabs methylprednisolone 4 mg tablets in See Rx Instructions PO .COMPLEX 06/03/24 a dose pack (Medrol (Gunnar)) #21 ea Allergies Allergy/AdvReac Type Severity Reaction Status Date / Time No Known Allergies Allergy Verified 05/23/24 13:28 Review of Systems Const: Denies: fever(s), chills, body aches or change in appetite ENMT: Denies: throat pain or dental pain Card: Denies: chest pain Resp: Reports: dyspnea GI: Denies: abdominal pain, nausea, vomiting or diarrhea Musc: Denies: neck pain or back pain Skin/Breast: Denies: rash Neuro: Denies: headache(s) PFSH ED PFSH: Medical History Essential hypertension History of migraine headaches Vitamin D deficiency Hepatitis C Treatment status unknown Hx of colonic polyps Sessile on colonoscopy 02/16 Depression GERD (gastroesophageal reflux disease) Peptic ulcer disease Gastric ulcer on EGD 02/16 COPD (chronic obstructive pulmonary disease) Surgical History History of colonoscopy with polypectomy 2019 Status post excision of lipoma (~01/2019) Hx of appendectomy Family History Father Tuberculosis Denies family history of Diabetes Cancer Social History Smoking and tobacco/nicotine status: current every day tobacco/nicotine user cigarettes Packs smoked per day: 1.5 Years cigarettes smoked: 46 [ Other cigarette details: started at age 22] Second hand smoke exposure: No Alcohol intake: current Alcohol intake frequency: holidays/special occasions only Substance/Drug Use: unknown Adopted: No Caregiver/support person: No Lives independently: Yes Household members: spouse Housing: House Marital status: service: No Current occupational status: retired Pets and animals: Yes Do you think of yourself as: Straight/Heterosexual Current gender identity: Male Physical Exam Const: COMMON NORMALS: no acute distress, patient oriented x3 and healthy appearing HENMT: COMMON NORMALS: normocephalic and atraumatic HEAD & SCALP: normocephalic and atraumatic Eye: COMMON NORMALS: conjunctivae normal CONJUNCTIVA: Yes conjunctivae normal Neck/C-Spine: COMMON NORMALS: full ROM and supple Chest: COMMONS NORMALS: normal inspection of the chest and normal palpation of entire chest wall Resp: COMMON NORMALS: normal respiratory effort, No retractions, No use of accessory muscles and clear to auscultation bilaterally AUSCULTATION: clear to auscultation bilaterally Cardio: COMMON NORMALS: regular rate, regular rhythm and No murmurs present (Cardio) RATE: regular rate RHYTHM: regular rhythm GI: COMMON NORMALS: Normal to inspection, nondistended, normoactive bowel sounds present, Soft to palpation, non-tender and no masses PALPATION: Yes Soft to palpation Extremity: COMMON NORMALS: normal to inspection and full ROM Neuro: COMMON NORMALS: patient oriented x3, moves all extremities and no focal motor deficits Psych: COMMON NORMALS: mental status grossly normal, Normal thought process present and cooperative THOUGHT PROCESS: Normal thought process present Skin: COMMON NORMALS: no rashes or lesions noted and no wounds GENERAL SKIN EXAM: no rashes or lesions noted Course Vital Signs: Vital signs: Vital Signs Temperature 98.3 F 07/05/24 16:14 Pulse Rate 66 07/05/24 17:47 Respiratory Rate 20 H 07/05/24 16:39 Blood Pressure 111/63 07/05/24 17:47 Pulse Oximetry 99 07/05/24 17:47 Oxygen Delivery Me thod Nasal Cannula 07/05/24 17:47 Oxygen Flow Rate 2 07/05/24 16:39 MDM - SOB/Dyspnea Medical Decision Making Patient presents here with COPD and ran out of albuterol he feels much improved here is no distress no pneumonia did give an inhaler for home he is to follow-up with PCP and return if worsening. Medical Records I reviewed the patient's medical records. Lab Data I reviewed the patient's lab results. 07/05/24 16:57 07/05/24 16:57 Labs/Radiology: Radiology Impressions Chest X-Ray 07/05/24 16:18 IMPRESSION: As above. Laboratory Results WBC 6.57 10^3/uL (3.29-11.43) 07/05/24 16:57 RBC 4.54 10^6/uL (3.85-5.65) 07/05/24 16:57 Hgb 13.40 g/dL (11.27-16.99) 07/05/24 16:57 Hct 44.2 % (37-53) 07/05/24 16:57 MCV 97.4 fl (82-101) 07/05/24 16:57 MCH 29.5 pg (27-33) 07/05/24 16:57 MCHC 30.3 g/dL (30-55) 07/05/24 16:57 RDW 12.9 % (12.1-15.1) 07/05/24 16:57 Plt Count 290 10^3/cmm (157-399) 07/05/24 16:57 MPV 9.2 fL (7.4-10.4) 07/05/24 16:57 Neut % (Auto) 56.8 % 07/05/24 16:57 Lymph % (Auto) 28.8 % 07/05/24 16:57 [place] % (Auto) 8.1 % 07/05/24 16:57 Eos % (Auto) 3.8 % 07/05/24 16:57 Baso % (Auto) 0.8 % 07/05/24 16:57 Neut # (Auto) 3.74 10^3/uL (1.8-7.7) 07/05/24 16:57 Lymph # (Auto) 1.9 10^3/uL (0.8-4.8) 07/05/24 16:57 [place] # (Auto) 0.5 10^3/uL (0.2-0.9) 07/05/24 16:57 Eos # (Auto) 0.3 10^3/uL (0.0-0.8) 07/05/24 16:57 Baso # (Auto) 0.1 10^3/uL (0.0-0.1) 07/05/24 16:57 Nucleated RBC % (auto) 0 % 07/05/24 16:57 Nucleated RBCs # 0.0 /100WBC 07/05/24 16:57 Sodium 142 mmol/L (136-145) 07/05/24 16:57 Potassium 4.3 mmol/L (3.5-5.1) 07/05/24 16:57 Chloride 99 mmol/L (98-107) 07/05/24 16:57 Carbon Dioxide 40 mmol/L (22-29) H 07/05/24 16:57 Anion Gap 7.3 (5-19) 07/05/24 16:57 BUN 7 mg/dL (8-23) L 07/05/24 16:57 Creatinine 0.7 mg/dL (0.7-1.2) 07/05/24 16:57 GFR Calculation 112.5 mL/min (90-130) 07/05/24 16:57 Glucose 95 mg/dL (65-115) 07/05/24 16:57 Calculated Osmolality 292 mOsm/kg (285-295) 07/05/24 16:57 Calcium 9.1 mg/dL (8.5-10.5) 07/05/24 16:57 Total Bilirubin 0.2 mg/dL (0.15-1.2) 07/05/24 16:57 AST 17 U/L (0-40) 07/05/24 16:57 ALT 14 U/L (0-41) 07/05/24 16:57 Alkaline Phosphatase 106 U/L (40-130) 07/05/24 16:57 NT-Pro-B Natriuret Pep 55 pg/mL (0-125) 07/05/24 16:57 Total Protein 6.6 g/dL (6.6-8.7) 07/05/24 16:57 Albumin 4.1 g/dL (3.5-5.2) 07/05/24 16:57 Globulin 2.5 g/dL (1.3-4.6) 07/05/24 16:57 All radiology interpretation(s) finalized by discharge Discharge Plan Discharge Patient Disposition: Home Clinical Impression: Acute exacerbation of chronic obstructive airways disease Condition: Stable Prescriptions: No Action albuterol sulfate 2.5 mg /3 mL (0.083 %) solution for nebulization 2.5 mg inhalation Q4H PRN (Reason: shortness of breath or wheezing) Qty: 300 5RF (DME) nebulizers [facility] See Rx Instructions .ROUTE .MEDSUPPLY Qty: 1 0RF Rx Instructions: As directed (DME) Disposable nebulizer circuit See Rx Instructions .ROUTE .MEDSUPPLY Qty: 1 0RF Rx Instructions: As directed Combivent Respimat 20-100 mcg/actuation mist 1 puff INHALATION Q6H Qty: 4 5RF isosorbide mononitrate 30 mg tablet extended release 24 hr 30 mg PO DAILY Qty: 90 3RF nitroglycerin 0.4 mg tablet, sublingual 0.4 mg sublingual Q5M PRN (Reason: chest pain) Qty: 20 2RF Rx Instructions: do not exceed 3 doses per episode metoprolol succinate 25 mg tablet extended release 24 hr 12.5 mg PO DAILY Qty: 45 1RF albuterol sulfate 90 mcg/actuation HFA aerosol inhaler 2 inh inhalation Q6H PRN (Reason: shortness of breath or wheezing) Qty: 8.5 6RF melatonin 5 mg Tablet 5 mg PO DAILY coenzyme Q10 100 mg Tablet 100 mg PO DAILY aspirin 81 mg Tablet,Delayed Release (Dr/Ec) 81 mg PO DAILY cholecalciferol (vitamin D3) [Vitamin D3] 25 mcg (1,000 unit) Capsule 25 mcg PO DAILY sumatriptan succinate [Imitrex] 50 mg Tablet 50 mg PO Q3D PRN (Reason: headaches) Rx Instructions: PATIENT TO TAKE ONCE EVERY THREE DAYS trazodone 100 mg tablet 200 mg PO BEDTIME omeprazole 20 mg capsule,delayed release(DR/EC) See Rx Instructions .ROUTE .COMPLEX Rx Instructions: 40mg every morning and 20 mg every night prednisone 10 mg Tablet 5 mg PO DAILY methylprednisolone [Medrol (Gunnar)] 4 mg tablets,dose pack See Rx Instructions .ROUTE .COMPLEX Qty: 21 0RF Rx Instructions: orally per package directions Discharge Orders: Discharge ED (Routine); Ordered 07/05/24 Ordered By: Kai Venegas Referrals: Ellie Irene MD [Primary Care Provider] - Discharge Diet: Advance as tolerated Discharge Activity: Resume usual activity Patient Instructions: COPD (Chronic Obstructive Pulmonary Disease) (ED) Coding Level of Care Code 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
[2024-07-05] MEDS: dexamethasone 10 mg/mL INJ IM (16:33)
[2024-07-05 16:39] VITALS: PULSE 65; RESP 20; O2SAT 98
[2024-07-05] MEDS: albuterol 8 gm MDI 2 PUFF INHALATION (16:39)
[2024-07-05 17:21] LABS: Basophils # 0.1 10^3/uL (0.0-0.1); Basophils % 0.8 %; Eosinophils # 0.3 10^3/uL (0.0-0.8); Eosinophils % 3.8 %; Hematocrit 44.2 % (37-53); Lymphocytes # 1.9 10^3/uL (0.8-4.8); Lymphocytes % 28.8 %; Mean Corpuscular HGB Conc 30.3 g/dL (30-55); Mean Corpuscular Hemoglobin 29.5 pg (27-33); Mean Corpuscular Volume 97.4 fl (82-101); Mean Platelet Volume 9.2 fL (7.4-10.4); Monocytes # 0.5 10^3/uL (0.2-0.9); Monocytes % 8.1 %; Neutrophils # 3.74 10^3/uL (1.8-7.7); Neutrophils % 56.8 %; Nucleated Red Blood Cells % 0 %; Platelet Count 290 10^3/cmm (157-399); Red Blood Count 4.54 10^6/uL (3.85-5.65); Red Cell Distribution Width 12.9 % (12.1-15.1); White Blood Count 6.57 10^3/uL (3.29-11.43)
[2024-07-05 17:47] VITALS: BP 111/63; PULSE 66; O2SAT 99
[2024-07-05 18:19] LABS: Alanine Aminotransferase 14 U/L (0-41); Albumin Level 4.1 g/dL (3.5-5.2); Alkaline Phosphatase 106 U/L (40-130); Anion Gap 7.3 (5-19); Aspartate Amino Transferase 17 U/L (0-40); Blood Urea Nitrogen 7 mg/dL (8-23); Calcium 9.1 mg/dL (8.5-10.5); Carbon Dioxide 40 mmol/L (22-29); Chloride 99 mmol/L (98-107); Creatinine Clr Calc Pharmacy 57.4862; Globulin 2.5 g/dL (1.3-4.6); Glomerular Filtration Rate 112.5 mL/min (90-130); Glucose 95 mg/dL (65-115); NT Pro B Type Natriuretic Pept 55 pg/mL (0-125); Osmolality Calculated 292 mOsm/kg (285-295); Potassium 4.3 mmol/L (3.5-5.1); Sodium 142 mmol/L (136-145); Total Bilirubin 0.2 mg/dL (0.15-1.2); Total Protein 6.6 g/dL (6.6-8.7)
[2024-07-05 18:36] VITALS: BP 115/71; PULSE 72; O2SAT 97
[2024-07-05 19:30] VITALS: BP 124/65; PULSE 78; O2SAT 95
== END 2024-07-05 20:09 | disposition home or self-care (01) ==
PROVIDERS: Emergency Provider Emergency Medicine; PCP Family Medicine
DX: J44.1 Chronic obstructive pulmonary disease with (acute) exacerbation (principal); Z99.81 Dependence on supplemental oxygen; Z79.82 Long term (current) use of aspirin; F17.210 Nicotine dependence, cigarettes, uncomplicated
CPT/HCPCS: 36415; 71045; 80053; 83880; 85025; 94640; 96372; 99284; J1100; J3535

== ENCOUNTER 2024-07-09 16:51 | Emergency (ER) | payer OTHER, MEDICARE, MEDICAID, SELFPAY ==
[2024-07-09 16:52] VITALS: BP 130/67; PULSE 77; RESP 18; TEMP 36.8; O2SAT 100
--- NOTE | 2024-07-09 16:52 | XRR_ITS ---
PROCEDURE INFORMATION: Exam: XR Chest Exam date and time: 07/09/2024 4:58 PM Age: 68 years old Clinical indication: Pain; Chest pressure; TECHNIQUE: Imaging protocol: Radiologic exam of the chest. Views: 1 view. COMPARISON: CR XR chest 1V portable [id number] 07/05/2024 4:40 PM FINDINGS: Lungs: There are emphysematous changes in the lungs. COPD morphology of the chest. Pleural spaces: Unremarkable. No pleural effusion. No pneumothorax. Heart/Mediastinum: Unremarkable. No cardiomegaly. Bones/joints: Unremarkable. XR/XR chest 1V portable [id number] IMPRESSION: Pulmonary emphysema.
--- NOTE | 2024-07-09 16:52 | ECG_ITS ---
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 [id number]
--- NOTE | 2024-07-09 16:59 | ED_ITS ---
HPI - Chest Pain 2 General: Chief Complaint: Chest Pain Stated Complaint: CP Time Seen by Provider: 07/09/24 16:51 Source: patient Mode of arrival: ambulatory Limitations: no limitations History of Present Illness: 68-year-old male states he started havin g chest pain today at 1 [facility] center of his chest given aspirin nitro and route states his pain is resolved he denies any fever denies any new shortness of breath denies any cough. He denies any nausea or radiation of his pain Associated symptoms: Deny abdominal pain, dyspnea, fever(s), nausea or vomiting Related Data Home Medications Medication Instructions Recorded Confirmed sumatriptan succinate 50 mg tablet 50 mg PO Q3D PRN headaches 08/13/19 05/26/24 (Imitrex) aspirin 81 mg tablet,delayed 81 mg PO DAILY 11/27/19 05/26/24 release cholecalciferol (vitamin D3) 25 25 mcg PO DAILY 11/27/19 05/26/24 mcg (1,000 unit) capsule (Vitamin D3) coenzyme Q10 100 mg tablet 100 mg PO DAILY 04/19/24 05/26/24 melatonin 5 mg tablet 5 mg PO DAILY 04/19/24 05/26/24 omeprazole 20 mg capsule,delayed See Rx Instructions .Route .COMPLEX 05/15/24 05/26/24 release prednisone 10 mg tablet 5 mg PO DAILY 05/15/24 05/26/24 trazodone 100 mg tablet 200 mg PO BEDTIME 05/15/24 05/26/24 Previous Rx's Medication Instructions Recorded albuterol sulfate 2.5 mg/3 mL 2.5 mg (3 mL) inhalation Q4H PRN 06/08/22 (0.083 %) solution for nebulization shortness of breath or wheezing #300 mL nebulizers #1 ea 06/08/22 Disposable nebulizer circuit #1 ea 11/08/23 ipratropium 20 mcg-albuterol 100 1 puff inhalation Q6H #4 grams 01/01/24 mcg/actuation mist for inhalation (Combivent Respimat) albuterol sulfate 90 mcg/actuation 2 inh inhalation Q6H PRN shortness 03/23/24 aerosol inhaler of breath or wheezing #8.5 grams isosorbide mononitrate 30 mg 30 mg PO DAILY #90 tabs 10/23/24 tablet,extended release 24 hr metoprolol succinate 25 mg 12.5 mg (1/2 x 25 mg) PO DAILY #45 05/23/24 tablet,extended release 24 hr tabs nitroglycerin 0.4 mg sublingual 0.4 mg sublingual Q5M PRN chest 05/23/24 tablet pain #20 tabs methylprednisolone 4 mg tablets in See Rx Instructions PO .COMPLEX 06/03/24 a dose pack (Medrol (Gunnar)) #21 ea Allergies Allergy/AdvReac Type Severity Reaction Status Date / Time No Known Allergies Allergy Verified 07/09/24 17:01 Review of Systems 2 Const: Denies: fever(s), chills, body aches or change in appetite ENMT: Denies: throat pain or dental pain Card: Reports: chest pain Resp: Denies: dyspnea GI: Denies: abdominal pain, nausea, vomiting or diarrhea Musc: Denies: neck pain or back pain Skin/Breast: Denies: rash Neuro: Denies: headache(s) PFSH ED 2 PFSH: Medical History Essential hypertension History of migraine headaches Vitamin D deficiency Hepatitis C Treatment status unknown Hx of colonic polyps Sessile on colonoscopy 02/16 Depression GERD (gastroesophageal reflux disease) Peptic ulcer disease Gastric ulcer on EGD 02/16 COPD (chronic obstructive pulmonary disease) Surgical History History of colonoscopy with polypectomy 2019 Status post excision of lipoma (~01/2019) Hx of appendectomy Family History Father Tuberculosis Denies family history of Diabetes Cancer Social History Smoking and tobacco/nicotine status: current every day tobacco/nicotine user cigarettes Packs smoked per day: 1.5 Years cigarettes smoked: 46 [ Other cigarette details: started at age 22] Second hand smoke exposure: No Alcohol intake: current Alcohol intake frequency: holidays/special occasions only Substance/Drug Use: unknown Adopted: No Caregiver/support person: No Lives independently: Yes Household members: spouse Housing: House Marital status: service: No Current occupational status: retired Pets and animals: Yes Do you think of yourself as: Straight/Heterosexual Current gender identity: Male Physical Exam 2 Const: COMMON NORMALS: no acute distress, patient oriented x3 and healthy appearing HENMT: COMMON NORMALS: normocephalic and atraumatic HEAD & SCALP: n ormocephalic and atraumatic Neck/C-Spine: COMMON NORMALS: full ROM and supple Chest: COMMONS NORMALS: normal inspection of the chest Resp: COMMON NORMALS: normal respiratory effort, No retractions, No use of accessory muscles and clear to auscultation bilaterally AUSCULTATION: clear to auscultation bilaterally Cardio: COMMON NORMALS: regular rate, regular rhythm and No murmurs present (Cardio) RATE: regular rate RHYTHM: regular rhythm Extremity: COMMON NORMALS: normal to inspection and full ROM Neuro: COMMON NORMALS: patient oriented x3, moves all extremities and no focal motor deficits Psych: COMMON NORMALS: mental status grossly normal, Normal thought process present and cooperative THOUGHT PROCESS: Normal thought process present Skin: COMMON NORMALS: no rashes or lesions noted and no wounds GENERAL SKIN EXAM: no rashes or lesions noted Course 2 Vital Signs: Vital signs: Vital Signs Temperature 98.2 F 07/09/24 16:52 Pulse Rate 68 07/09/24 18:31 Respiratory Rate 16 07/09/24 18:31 Blood Pressure 124/73 07/09/24 18:31 Pulse Oximetry 100 07/09/24 18:31 Oxygen Delivery Me thod Nasal Cannula 07/09/24 18:31 Oxygen Flow Rate 2 07/09/24 18:31 MDM - Chest Pain Medical Decision Making Patient presents here with chest pains atypical in nature his troponins here are negative he is well-appearing here no signs of PE stable for discharge follow-up with PCP return if worsening. Medical Records I reviewed the patient's medical records. Lab Data I reviewed the patient's lab results. 07/09/24 17:00 07/09/24 17:00 Radiology Impressions Chest X-Ray 07/09/24 16:52 IMPRESSION: Pulmonary emphysema. Laboratory Results WBC 8.57 10^3/uL (3.29-11.43) 07/09/24 17:00 RBC 4.21 10^6/uL (3.85-5.65) 07/09/24 17:00 Hgb 12.10 g/dL (11.27-16.99) 07/09/24 17:00 Hct 41.3 % (37-53) 07/09/24 17:00 MCV 98.1 fl (82-101) 07/09/24 17:00 MCH 28.7 pg (27-33) 07/09/24 17:00 MCHC 29.3 g/dL (30-55) L 07/09/24 17:00 RDW 13.3 % (12.1-15.1) 07/09/24 17:00 Plt Count 287 10^3/cmm (157-399) 07/09/24 17:00 MPV 9.2 fL (7.4-10.4) 07/09/24 17:00 Neut % (Auto) 64.7 % 07/09/24 17:00 Lymph % (Auto) 19.8 % 07/09/24 17:00 Menard % (Auto) 9.6 % 07/09/24 17:00 Eos % (Auto) 3.9 % 07/09/24 17:00 Baso % (Auto) 1.1 % 07/09/24 17:00 Neut # (Auto) 5.55 10^3/uL (1.8-7.7) 07/09/24 17:00 Lymph # (Auto) 1.7 10^3/uL (0.8-4.8) 07/09/24 17:00 Menard # (Auto) 0.8 10^3/uL (0.2-0.9) 07/09/24 17:00 Eos # (Auto) 0.3 10^3/uL (0.0-0.8) 07/09/24 17:00 Baso # (Auto) 0.1 10^3/uL (0.0-0.1) 07/09/24 17:00 Nucleated RBC % (auto) 0 % 07/09/24 17:00 Nucleated RBCs # 0.0 /100WBC 07/09/24 17:00 PT 11.80 SECONDS (12.1-14.9) L 07/09/24 17:00 INR 0.85 (0.8-1.2) 07/09/24 17:00 Sodium 142 mmol/L (136-145) 07/09/24 17:00 Potassium 4.0 mmol/L (3.5-5.1) 07/09/24 17:00 Chloride 104 mmol/L (98-107) 07/09/24 17:00 Carbon Dioxide 31 mmol/L (22-29) H 07/09/24 17:00 Anion Gap 11.0 (5-19) 07/09/24 17:00 BUN 13 mg/dL (8-23) 07/09/24 17:00 Creatinine 0.6 mg/dL (0.7-1.2) L 07/09/24 17:00 GFR Calculation 134.4 mL/min (90-130) H 07/09/24 17:00 Glucose 81 mg/dL (65-115) 07/09/24 17:00 Calculated Osmolality 293 mOsm/kg (285-295) 07/09/24 17:00 Calcium 8.8 mg/dL (8.5-10.5) 07/09/24 17:00 Total Bilirubin 0.2 mg/dL (0.15-1.2) 07/09/24 17:00 AST 12 U/L (0-40) 07/09/24 17:00 ALT 11 U/L (0-41) 07/09/24 17:00 Alkaline Phosphatase 77 U/L (40-130) 07/09/24 17:00 Troponin T Baseline 21 ng/L (0-15) H 07/09/24 17:00 Troponin T 120 Minute 20.00 ng/L (0-15) H 07/09/24 18:57 Delta Troponin T -1.00 ABS# (0-10) L 07/09/24 18:57 Total Protein 5.8 g/dL (6.6-8.7) L 07/09/24 17:00 Albumin 3.9 g/dL (3.5-5.2) 07/09/24 17:00 Globulin 1.9 g/dL (1.3-4.6) 07/09/24 17:00 Lipase 34 U/L (13-60) 07/09/24 17:00 All radiology interpretation(s) finalized by discharge EKG Data EKG 1: I personally reviewed and interpreted this EKG as follows: EKG interpretation date: 07/09/24 EKG interpretation time: 16:54 Interpretation: nsr hr [address] elevation qrs 96 qtc 362 EKG 2: I personally reviewed and interpreted this EKG as follows: EKG interpretation date: 07/09/24 EKG interpretation time: 18:27 Interpretation: nsr hr [address] elevation qrs 95 qtc 373 Discharge Plan Discharge Patient Disposition: Home Clinical Impression: Atypical chest pain Condition: Stable Prescriptions: No Action albuterol sulfate 2.5 mg /3 mL (0.083 %) solution for nebulization 2.5 mg inhalation Q4H PRN (Reason: shortness of breath or wheezing) Qty: 300 5RF (DME) nebulizers Misc See Rx Instructions .ROUTE .MEDSUPPLY Qty: 1 0RF Rx Instructions: As directed (DME) Disposable nebulizer circuit See Rx Instructions .ROUTE .MEDSUPPLY Qty: 1 0RF Rx Instructions: As directed Combivent Respimat 20-100 mcg/actuation mist 1 puff INHALATION Q6H Qty: 4 5RF isosorbide mononitrate 30 mg tablet extended release 24 hr 30 mg PO DAILY Qty: 90 3RF nitroglycerin 0.4 mg tablet, sublingual 0.4 mg sublingual Q5M PRN (Reason: chest pain) Qty: 20 2RF Rx Instructions: do not exceed 3 doses per episode metoprolol succinate 25 mg tablet extended release 24 hr 12.5 mg PO DAILY Qty: 45 1RF albuterol sulfate 90 mcg/actuation HFA aerosol inhaler 2 inh inhalation Q6H PRN (Reason: shortness of breath or wheezing) Qty: 8.5 6RF melatonin 5 mg Tablet 5 mg PO DAILY coenzyme Q10 100 mg Tablet 100 mg PO DAILY aspirin 81 mg Tablet,Delayed Release (Dr/Ec) 81 mg PO DAILY cholecalciferol (vitamin D3) [Vitamin D3] 25 mcg (1,000 unit) Capsule 25 mcg PO DAILY sumatriptan succinate [Imitrex] 50 mg Tablet 50 mg PO Q3D PRN (Reason: headaches) Rx Instructions: PATIENT TO TAKE ONCE EVERY THREE DAYS trazodone 100 mg tablet 200 mg PO BEDTIME omeprazole 20 mg capsule,delayed release(DR/EC) See Rx Instructions .ROUTE .COMPLEX Rx Instructions: 40mg every morning and 20 mg every night prednisone 10 mg Tablet 5 mg PO DAILY methylprednisolone [Medrol (Gunnar)] 4 mg tablets,dose pack See Rx Instructions .ROUTE .COMPLEX Qty: 21 0RF Rx Instructions: orally per package directions Discharge Orders: Discharge ED (Routine); Ordered 07/09/24 Ordered By: Kai Venegas Referrals: Ellie Irene MD [Primary Care Provider] - Discharge Diet: Advance as tolerated Discharge Activity: Resume usual activity Patient Instructions: Chest Pain (ED) Coding Level of Care Code ED Director Of Institutional Giving for Oli Moise
[2024-07-09 17:10] LABS: Basophils # 0.1 10^3/uL (0.0-0.1); Basophils % 1.1 %; Eosinophils # 0.3 10^3/uL (0.0-0.8); Eosinophils % 3.9 %; Hematocrit 41.3 % (37-53); Lymphocytes # 1.7 10^3/uL (0.8-4.8); Lymphocytes % 19.8 %; Mean Corpuscular HGB Conc 29.3 g/dL (30-55); Mean Corpuscular Hemoglobin 28.7 pg (27-33); Mean Corpuscular Volume 98.1 fl (82-101); Mean Platelet Volume 9.2 fL (7.4-10.4); Monocytes # 0.8 10^3/uL (0.2-0.9); Monocytes % 9.6 %; Neutrophils # 5.55 10^3/uL (1.8-7.7); Neutrophils % 64.7 %; Nucleated Red Blood Cells % 0 %; Platelet Count 287 10^3/cmm (157-399); Red Blood Count 4.21 10^6/uL (3.85-5.65); Red Cell Distribution Width 13.3 % (12.1-15.1); White Blood Count 8.57 10^3/uL (3.29-11.43)
[2024-07-09 17:31] VITALS: BP 142/71; PULSE 76; RESP 19; O2SAT 98
[2024-07-09 17:32] LABS: Troponin(5th) Baseline 21 ng/L (0-15)
[2024-07-09 17:33] LABS: Alanine Aminotransferase 11 U/L (0-41); Albumin Level 3.9 g/dL (3.5-5.2); Alkaline Phosphatase 77 U/L (40-130); Aspartate Amino Transferase 12 U/L (0-40); Blood Urea Nitrogen 13 mg/dL (8-23); Calcium 8.8 mg/dL (8.5-10.5); Carbon Dioxide 31 mmol/L (22-29); Chloride 104 mmol/L (98-107); Creatinine Clr Calc Pharmacy 57.4862; Globulin 1.9 g/dL (1.3-4.6); Glomerular Filtration Rate 134.4 mL/min (90-130); Glucose 81 mg/dL (65-115); Lipase 34 U/L (13-60); Osmolality Calculated 293 mOsm/kg (285-295); Sodium 142 mmol/L (136-145); Total Bilirubin 0.2 mg/dL (0.15-1.2); Total Protein 5.8 g/dL (6.6-8.7)
[2024-07-09 17:34] LABS: INR 0.85 (0.8-1.2)
[2024-07-09 18:31] VITALS: BP 124/73; PULSE 68; RESP 16; O2SAT 100
--- NOTE | 2024-07-09 18:52 | ECG_ITS ---
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 Measurements Intervals [place] Rate: 65 P: 80 IA: 167 QRS: 86 QRSD: 95 T: 79 QT: 362 QTc: 377 Interpretive Statements SINUS RHYTHM WITH SINUS ARRHYTHMIA early repolarization changes in the inferior leads Compared to ECG 07/09/2024 16:54:56 No significant changes Electronically Signed On 07-11-2024 01:09:14 SECURITY INSTALLATION TECHNICIAN by Christine Shukla M.D. [email or web address]
[2024-07-09 20:03] VITALS: BP 120/68; PULSE 68; O2SAT 96
== END 2024-07-09 20:04 | disposition home or self-care (01) ==
PROVIDERS: Emergency Provider Emergency Medicine; PCP Family Medicine
DX: R07.89 Other chest pain (principal); I10 Essential (primary) hypertension
CPT/HCPCS: 71045; 80053; 83690; 84484; 85025; 85610; 93005; 99285

== ENCOUNTER 2024-08-02 22:36 | Emergency (ER) | payer OTHER, MEDICARE, MEDICAID, SELFPAY ==
[2024-08-02 22:37] VITALS: BP 130/62; PULSE 82; RESP 20; TEMP 36.7; O2SAT 96; BMI 20.7
--- NOTE | 2024-08-02 22:45 | ECG_ITS ---
[facility] Date: 2024-08[facility]02 Pat Name: Naren Pritchard Department: Room: Gender: Male Uniform Patrol Police Officer: : 1955 Requested By: Jose Roberts Order Number: [id number] Walker MD: Christine Shukla M.D. Measurements Intervals [place] Rate: 69 P: 79 NC: 173 QRS: 82 QRSD: 93 T: 71 QT: 346 QTc: 372 Interpretive Statements SINUS RHYTHM WITH SINUS ARRHYTHMIA Compared to ECG 07/09/2024 18:27:26 Early repolarization no longer present Electronically Signed On 08-03-2024 21:37:07 SHOE REPAIRER by Christine Shukla M.D. [email or web address]
--- NOTE | 2024-08-02 22:56 | XRR_ITS ---
PROCEDURE INFORMATION: Exam: XR Chest Exam date and time: 08/02/2024 11:21 PM Age: 68 years old Clinical indication: Cough; Additional info: Short of breath TECHNIQUE: Imaging protocol: Radiologic exam of the chest. Views: 1 view. COMPARISON: CR (CHEST, ) 07/09/2024 4:58 PM FINDINGS: Lungs: Increased lung volumes. No lobar consolidation. Pleural spaces: Unremarkable. No pleural effusion. No pneumothorax. Heart/Mediastinum: Unremarkable. No cardiomegaly. Bones/joints: Unremarkable. XR/XR chest 1V 09236 IMPRESSION: As above.
[2024-08-02 23:20] LABS: Basophils # 0.1 10^3/uL (0.0-0.1); Basophils % 0.6 %; Eosinophils # 0.4 10^3/uL (0.0-0.8); Eosinophils % 4.5 %; Hematocrit 37.8 % (37-53); Lymphocytes # 1.1 10^3/uL (0.8-4.8); Lymphocytes % 12.1 %; Mean Corpuscular HGB Conc 30.4 g/dL (30-55); Mean Corpuscular Hemoglobin 28.7 pg (27-33); Mean Corpuscular Volume 94.3 fl (82-101); Mean Platelet Volume 9.2 fL (7.4-10.4); Monocytes # 0.5 10^3/uL (0.2-0.9); Monocytes % 5.8 %; Neutrophils # 6.79 10^3/uL (1.8-7.7); Neutrophils % 76.1 %; Nucleated Red Blood Cells % 0 %; Platelet Count 286 10^3/cmm (157-399); Red Blood Count 4.01 10^6/uL (3.85-5.65); White Blood Count 8.92 10^3/uL (3.29-11.43)
[2024-08-02 23:27] LABS: Base Excess VBG 9.3 mmol/L (-3.0-3.0); Blood Gas Operator Identificat JDB; Blood Gas Sample Site Not specified; Blood Gas Sample Type Venous; HCO3 VBG 36.8 mmol/L (24-28); PO2 VBG 53.6 mmHg (25-40); Venous Blood Gas Hematocrit 36.4 % (42-52); pH VBG 7.36 (7.32-7.42)
[2024-08-02 23:29] VITALS: PULSE 75; RESP 22; O2SAT 97
[2024-08-02] MEDS: ipratropium-albuterol 3 mL Neb INHALATION (23:29)
[2024-08-02 23:43] LABS: Alanine Aminotransferase 15 U/L (0-41); Albumin Level 3.6 g/dL (3.5-5.2); Alkaline Phosphatase 85 U/L (40-130); Anion Gap 11.4 (5-19); Aspartate Amino Transferase 14 U/L (0-40); Blood Urea Nitrogen 13 mg/dL (8-23); Calcium 8.2 mg/dL (8.5-10.5); Carbon Dioxide 32 mmol/L (22-29); Chloride 104 mmol/L (98-107); Creatinine Clr Calc Pharmacy 75.5089; Globulin 1.7 g/dL (1.3-4.6); Glomerular Filtration Rate 134.4 mL/min (90-130); Glucose 92 mg/dL (65-115); Magnesium 1.6 mg/dL (1.7-2.3); Osmolality Calculated 296 mOsm/kg (285-295); Potassium 4.4 mmol/L (3.5-5.1); Sodium 143 mmol/L (136-145); Total Bilirubin 0.2 mg/dL (0.15-1.2); Total Protein 5.3 g/dL (6.6-8.7)
[2024-08-02 23:51] VITALS: BP 95/59; PULSE 73; RESP 18; O2SAT 96
[2024-08-02 23:55] LABS: Influenza A by IFA negative (Negative); Influenza B by IFA negative (Negative)
[2024-08-03 00:18] VITALS: BP 115/62; PULSE 74; RESP 20; O2SAT 95
[2024-08-03 00:34] VITALS: BP 113/60; PULSE 76; RESP 16; O2SAT 96
--- NOTE | 2024-08-03 01:25 | ED_ITS ---
HPI - SOB/Dyspnea 2 General: Chief Complaint: Shortness of Breath/Dyspnea Stated Complaint: SOB Time Seen by Provider: 08/02/24 22:56 History of Present Illness: HPI Narrative: The patient presented to the emergency department with difficulty in breathing. The patient reported that they were unable to get their breathing straight but felt improvement after receiving a breathing treatment in the emergency department. The patient is on 2 liters of oxygen at home and has inhalers, but did not use them before coming to the emergency department. The patient still sounded wheezy during the visit Related Data Home Medications Medication Instructions Recorded Confirmed sumatriptan succinate 50 mg tablet 50 mg PO Q3D PRN headaches 08/13/19 05/26/24 (Imitrex) aspirin 81 mg tablet,delayed 81 mg PO DAILY 11/27/19 05/26/24 release cholecalciferol (vitamin D3) 25 25 mcg PO DAILY 11/27/19 05/26/24 mcg (1,000 unit) capsule (Vitamin D3) coenzyme Q10 100 mg tablet 100 mg PO DAILY 04/19/24 05/26/24 melatonin 5 mg tablet 5 mg PO DAILY 04/19/24 05/26/24 omeprazole 20 mg capsule,delayed See Rx Instructions .Route .COMPLEX 05/15/24 05/26/24 release prednisone 10 mg tablet 5 mg PO DAILY 05/15/24 05/26/24 trazodone 100 mg tablet 200 mg PO BEDTIME 05/15/24 05/26/24 Previous Rx's Medication Instructions Recorded albuterol sulfate 2.5 mg/3 mL 2.5 mg (3 mL) inhalation Q4H PRN 06/08/22 (0.083 %) solution for nebulization shortness of breath or wheezing #300 mL nebulizers #1 ea 06/08/22 Disposable nebulizer circuit #1 ea 11/08/23 ipratropium 20 mcg-albuterol 100 1 puff inhalation Q6H #4 grams 01/01/24 mcg/actuation mist for inhalation (Combivent Respimat) albuterol sulfate 90 mcg/actuation 2 inh inhalation Q6H PRN shortness 03/23/24 aerosol inhaler of breath or wheezing #8.5 grams isosorbide mononitrate 30 mg 30 mg PO DAILY #90 tabs 05/23/24 tablet,extended release 24 hr metoprolol succinate 25 mg 12.5 mg (1/2 x 25 mg) PO DAILY #45 05/23/24 tablet,extended release 24 hr tabs nitroglycerin 0.4 mg sublingual 0.4 mg sublingual Q5M PRN chest 05/23/24 tablet pain #20 tabs methylprednisolone 4 mg tablets in See Rx Instructions PO .COMPLEX 06/03/24 a dose pack (Medrol (Gunnar)) #21 ea azithromycin 250 mg tablet See Rx Instructions PO .COMPLEX #6 08/03/24 (Zithromax Z-Gunnar) tabs prednisone 20 mg tablet 20 mg PO BID 7 days #14 tabs 08/03/24 Allergies Allergy/AdvReac Type Severity Reaction Status Date / Time No Known Allergies Allergy Verified 08/02/24 22:45 PFSH ED 2 PFSH: Medical History Essential hypertension History of migraine headaches Vitamin D deficiency Hepatitis C Treatment status unknown Hx of colonic polyps Sessile on colonoscopy 02/16 Depression GERD (gastroesophageal reflux disease) Peptic ulcer disease Gastric ulcer on EGD 02/16 COPD (chronic obstructive pulmonary disease) Surgical History History of colonoscopy with polypectomy 2019 Status post excision of lipoma (~01/2019) Hx of appendectomy Family History Father Tuberculosis Denies family history of Diabetes Cancer Social History Smoking and tobacco/nicotine status: current every day tobacco/nicotine user cigarettes Packs smoked per day: 1.5 Years cigarettes smoked: 46 [ Other cigarette details: started at age 22] Second hand smoke exposure: No Alcohol intake: current Alcohol intake frequency: holidays/special occasions only Substance/Drug Use: unknown Adopted: No Caregiver/support person: No Lives independently: Yes Household members: spouse Housing: House Marital status: service: No Current occupational status: retired Pets and animals: Yes Do you think of yourself as: Straight/Heterosexual Current gender identity: Male Physical Exam 2 Const: COMMON NORMALS: no acute distress, patient oriented x3, healthy appearing, alert and well nourished HENMT: COMMON NORMALS: normocephalic HEAD & SCALP: normocephalic Eye: COMMON NORMALS: EOMs intact bilaterally Neck/C-Spine: COMMON NORMALS: full ROM and supple Resp: COMMON NORMALS: normal respiratory effort, No retractions and clear to auscultation bilaterally AUSCULTATION: clear to auscultation bilaterally and wheezes expiratory wheezes Cardio: COMMON NORMALS: regular rate, regular rhythm, No gallops present (Cardio) and No murmurs present (Cardio) RATE: regular rate RHYTHM: r egular rhythm GI: COMMON NORMALS: Soft to palpation and non-tender PALPATION: Yes Soft to palpation Extremity: GENERAL: Yes normal exam except as noted Neuro: COMMON NORMALS: patient oriented x3 SENSORIUM/ORIENTATION: Yes alert Skin: COMMON NORMALS: no rashes or lesions noted GENERAL SKIN EXAM: no rashes or lesions noted Course 2 Vital Signs: Vital signs: Vital Signs Temperature 98.0 F 08/02/24 22:37 Pulse Rate 84 08/03/24 01:43 Respiratory Rate 22 H 08/03/24 01:43 Blood Pressure 115/64 08/03/24 01:43 Pulse Oximetry 98 08/03/24 01:43 Oxygen Delivery Me thod Nasal Cannula 08/02/24 23:29 Oxygen Flow Rate 2 08/02/24 23:29 MDM - SOB/Dyspnea Medical Decision Making COPD Exacerbation: Patient presented to the emergency department with difficulty breathing, which has since improved with a breathing treatment. The patient is on home oxygen at 2 liters. Labs and chest X-ray were reported as normal. On examination, the patient still has some wheezing. The clinician has diagnosed a COPD exacerbation. - Administer steroid injection in the emergency department. - Prescribe oral steroids for pickup tomorrow. - Prescribe azithromycin for COPD exacerbation. - Continue home oxygen at 2 liters. - Use home inhalers as prescribed. - Follow up with primary care doctor next week. Lab Data 08/02/24 23:14 08/02/24 23:14 Labs/Radiology: Radiology Impressions Chest X-Ray 08/02/24 22:56 IMPRESSION: As above. Laboratory Results WBC 8.92 10^3/uL (3.29-11.43) 08/02/24 23:14 RBC 4.01 10^6/uL (3.85-5.65) 08/02/24 23:14 Hgb 11.50 g/dL (11.27-16.99) 08/02/24 23:14 Hct 37.8 % (37-53) 08/02/24 23:14 MCV 94.3 fl (82-101) 08/02/24 23:14 MCH 28.7 pg (27-33) 08/02/24 23:14 MCHC 30.4 g/dL (30-55) 08/02/24 23:14 RDW 13.0 % (12.1-15.1) 08/02/24 23:14 Plt Count 286 10^3/cmm (157-399) 08/02/24 23:14 MPV 9.2 fL (7.4-10.4) 08/02/24 23:14 Neut % (Auto) 76.1 % 08/02/24 23:14 Lymph % (Auto) 12.1 % 08/02/24 23:14 [place] % (Auto) 5.8 % 08/02/24 23:14 Eos % (Auto) 4.5 % 08/02/24 23:14 Baso % (Auto) 0.6 % 08/02/24 23:14 Neut # (Auto) 6.79 10^3/uL (1.8-7.7) 08/02/24 23:14 Lymph # (Auto) 1.1 10^3/uL (0.8-4.8) 08/02/24 23:14 [place] # (Auto) 0.5 10^3/uL (0.2-0.9) 08/02/24 23:14 Eos # (Auto) 0.4 10^3/uL (0.0-0.8) 08/02/24 23:14 Baso # (Auto) 0.1 10^3/uL (0.0-0.1) 08/02/24 23:14 Nucleated RBC % (auto) 0 % 08/02/24 23:14 Nucleated RBCs # 0.0 /100WBC 08/02/24 23:14 Specimen Type Venous 08/02/24 23:14 Sample Site Not specified 08/02/24 23:14 Italo Test N/a 08/02/24 23:14 VBG pH 7.36 (7.32-7.42) 08/02/24 23:14 VBG pO2 53.6 mmHg (25-40) H 08/02/24 23:14 VBG HCO3 36.8 mmol/L (24-28) H 08/02/24 23:14 VBG Base Excess 9.3 mmol/L (-3.0-3.0) H 08/02/24 23:14 VBG Hematocrit 36.4 % (42-52) L 08/02/24 23:14 O2 Delivery Device None 08/02/24 23:14 Tapering Machine Operator ID [id number] 08/02/24 23:14 Sodium 143 mmol/L (136-145) 08/02/24 23:14 Potassium 4.4 mmol/L (3.5-5.1) 08/02/24 23:14 Chloride 104 mmol/L (98-107) 08/02/24 23:14 Carbon Dioxide 32 mmol/L (22-29) H 08/02/24 23:14 Anion Gap 11.4 (5-19) 08/02/24 23:14 BUN 13 mg/dL (8-23) 08/02/24 23:14 Creatinine 0.6 mg/dL (0.7-1.2) L 08/02/24 23:14 GFR Calculation 134.4 mL/min (90-130) H 08/02/24 23:14 Glucose 92 mg/dL (65-115) 08/02/24 23:14 Calculated Osmolality 296 mOsm/kg (285-295) H 08/02/24 23:14 Calcium 8.2 mg/dL (8.5-10.5) L 08/02/24 23:14 Magnesium 1.6 mg/dL (1.7-2.3) L 08/02/24 23:14 Total Bilirubin 0.2 mg/dL (0.15-1.2) 08/02/24 23:14 AST 14 U/L (0-40) 08/02/24 23:14 ALT 15 U/L (0-41) 08/02/24 23:14 Alkaline Phosphatase 85 U/L (40-130) 08/02/24 23:14 Total Protein 5.3 g/dL (6.6-8.7) L 08/02/24 23:14 Albumin 3.6 g/dL (3.5-5.2) 08/02/24 23:14 Globulin 1.7 g/dL (1.3-4.6) 08/02/24 23:14 Influenza Type A Ag negative (Negative) 08/02/24 23:14 Influenza Type B Ag negative (Negative) 08/02/24 23:14 XR interpretation done by ED provider, pending radiology final review ED provider radiology interpretation(s): Chest x-ray: No acute cardiopulmonary process Discharge Plan Discharge Patient Disposition: Home Clinical Impression: Asthma exacerbation in COPD Condition: Stable Prescriptions: New prednisone 20 mg tablet 20 mg PO BID 7 Days Qty: 14 0RF azithromycin [Zithromax Z-Gunnar] 250 mg tablet See Rx Instructions .ROUTE .COMPLEX Qty: 6 0RF Rx Instructions: For 250 mg dose pack: take 500 mg today (day 1), then 250 mg for 4 days (days 2-5) No Action albuterol sulfate 2.5 mg /3 mL (0.083 %) solution for nebulization 2.5 mg inhalation Q4H PRN (Reason: shortness of breath or wheezing) Qty: 300 5RF (DME) nebulizers [facility] See Rx Instructions .ROUTE .MEDSUPPLY Qty: 1 0RF Rx Instructions: As directed (DME) Disposable nebulizer circuit See Rx Instructions .ROUTE .MEDSUPPLY Qty: 1 0RF Rx Instructions: As directed Combivent Respimat 20-100 mcg/actuation mist 1 puff INHALATION Q6H Qty: 4 5RF isosorbide mononitrate 30 mg tablet extended release 24 hr 30 mg PO DAILY Qty: 90 3RF nitroglycerin 0.4 mg tablet, sublingual 0.4 mg sublingual Q5M PRN (Reason: chest pain) Qty: 20 2RF Rx Instructions: do not exceed 3 doses per episode metoprolol succinate 25 mg tablet extended release 24 hr 12.5 mg PO DAILY Qty: 45 1RF albuterol sulfate 90 mcg/actuation HFA aerosol inhaler 2 inh inhalation Q6H PRN (Reason: shortness of breath or wheezing) Qty: 8.5 6RF melatonin 5 mg Tablet 5 mg PO DAILY coenzyme Q10 100 mg Tablet 100 mg PO DAILY aspirin 81 mg Tablet,Delayed Release (Dr/Ec) 81 mg PO DAILY cholecalciferol (vitamin D3) [Vitamin D3] 25 mcg (1,000 unit) Capsule 25 mcg PO DAILY sumatriptan succinate [Imitrex] 50 mg Tablet 50 mg PO Q3D PRN (Reason: headaches) Rx Instructions: PATIENT TO TAKE ONCE EVERY THREE DAYS trazodone 100 mg tablet 200 mg PO BEDTIME omeprazole 20 mg capsule,delayed release(DR/EC) See Rx Instructions .ROUTE .COMPLEX Rx Instructions: 40mg every morning and 20 mg every night prednisone 10 mg Tablet 5 mg PO DAILY methylprednisolone [Medrol (Gunnar)] 4 mg tablets,dose pack See Rx Instructions .ROUTE .COMPLEX Qty: 21 0RF Rx Instructions: orally per package directions Discharge Orders: Discharge ED (Routine); Ordered 08/03/24 Ordered By: Jose Roberts Referrals: Ellie Irene MD [Primary Care Provider] - Discharge Diet: Advance as tolerated Discharge Activity: Resume usual activity Patient Instructions: Opioid Safety, Pain Management Activity Restrictions/Additional Instructions: Please follow-up with your primary care physician for updated management for your COPD. Please return the emergency department with any new or worsening symptoms. Please take all antibiotics until gone. Coding Level of Care Code ED Bridge Crane Operator for Oli Moise
[2024-08-03 01:43] VITALS: BP 115/64; PULSE 84; RESP 22; O2SAT 98
[2024-08-03] MEDS: methylPREDNISolone sod succ 125 mg/2 mL INJ IVP (01:44)
[2024-08-03 01:59] VITALS: BP 102/56; PULSE 77; O2SAT 97
== END 2024-08-03 02:05 | disposition home or self-care (01) ==
PROVIDERS: Emergency Provider General Practice; PCP Family Medicine
DX: J44.1 Chronic obstructive pulmonary disease with (acute) exacerbation (principal); Z79.82 Long term (current) use of aspirin; F17.210 Nicotine dependence, cigarettes, uncomplicated; I10 Essential (primary) hypertension
CPT/HCPCS: 71045; 80053; 82803; 83735; 85025; 87804; 93005; 94640; 96374; 99285; J2919

== ENCOUNTER 2024-11-23 10:01 | Observation (INO) | payer MEDICARE, MEDICAID, SELFPAY ==
[2024-11-23] VITALS (15 sets, daily range): BP systolic 104–136; BP diastolic 59–75; PULSE 101–117; RESP 8–31; TEMP 36.6–36.8; O2SAT 93–99; BMI 17.5; BMI 19.1
--- NOTE | 2024-11-23 10:06 | XR_ITS ---
WS: [id number] Exam: XR chest 1V portable [id number] Date/Time of Exam: 11/23/2024 10:18 AM Reason For Exam: shortness of breath Comparison 08/02/2024. Lungs are hyperinflated and clear. Normal cardiomediastinal silhouette. Bony elements are intact. XR/XR chest 1V portable [id number] IMPRESSION: 1. Pulmonary hyperinflation. No acute finding.
--- NOTE | 2024-11-23 10:07 | ECG_ITS ---
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 Measurements Intervals Spring Rate: 109 P: 78 CO: 171 QRS: 91 QRSD: 80 T: 64 QT: 307 QTc: 414 Interpretive Statements SINUS TACHYCARDIA BORDERLINE RIGHT AXIS DEVIATION [QRS AXIS > 90] ABNORMAL RHYTHM ECG Compared to ECG 08/02/2024 22:42:52 Sinus rhythm no longer present Sinus arrhythmia no longer present Electronically Signed On 11-23-2024 10:34:24 CDT by Christine Shukla M.D. [email or web address]
--- NOTE | 2024-11-23 10:07 | W.ED.SOB ---
HPI - SOB/Dyspnea General: Chief Complaint: Shortness of Breath/Dyspnea Stated Complaint: SOB Time Seen by Provider: 11/23/24 10:06 History of Present Illness: HPI Narrative: 61-year-old male presents to the emergency room with complaints of shortness of breath difficulty breathing. Patient states that been going on the last several days he had a nonproductive cough normally wears 2 L by nasal cannula EMS states they had to titrate him up to 5 L to keep his sat just above 90%. He denies any hemoptysis no chest discomfort he thinks he may have had a heart attack in the past but is unsure if he had an angiogram. Denies fever sweats or chills. Associated symptoms: Reports chest congestion; Deny abdominal pain, chest pain or fever(s) Related Data Home Medications ?Medication ?Instructions ?Recorded ?Confirmed aspirin 81 mg tablet,delayed 81 mg PO DAILY 11/27/19 11/23/24 release albuterol sulfate 2.5 mg/0.5 mL 5 mg inhalation QID 11/23/24 11/23/24 solution for nebulization amlodipine 5 mg tablet 5 mg PO DAILY 11/23/24 11/23/24 glycopyrrolate 9 mcg-formoterol 2 puff inhalation BID 11/23/24 11/23/24 4.8 mcg HFA aerosol inhaler (BevesAvaakphere) guaifenesin 400 mg tablet 400 mg PO TID 11/23/24 11/23/24 melatonin 5 mg tablet 10 mg PO DAILY 11/23/24 11/23/24 omeprazole 20 mg tablet,delayed 20 mg PO BID 11/23/24 11/23/24 release trazodone 50 mg tablet 50 mg PO BEDTIME 11/23/24 11/23/24 Previous Rx's ?Medication ?Instructions ?Recorded albuterol sulfate 90 mcg/actuation 2 inh inhalation Q6H PRN shortness 03/23/24 aerosol inhaler of breath or wheezing #8.5 grams isosorbide mononitrate 30 mg 30 mg PO DAILY #90 tabs 05/23/24 tablet,extended release 24 hr nitroglycerin 0.4 mg sublingual 0.4 mg sublingual Q5M PRN chest 08/16/24 tablet pain #25 tabs metoprolol succinate 25 mg 12.5 mg (1/2 x 25 mg) PO DAILY #45 11/16/24 tablet,extended release 24 hr tabs Allergies Allergy/AdvReac Type Severity Reaction Status Date / Time No Known Allergies Allergy Verified 08/02/24 22:45 Review of Systems Const: Denies: fever(s) or chills Card: Denies: chest pain Resp: Reports: dyspnea, non-productive cough, wheezing and chest congestion GI: Denies: abdominal pain : Denies: dysuria, urinary frequency or urinary urgency Musc: Denies: neck pain or back pain Skin/Breast: Denies: rash PFSH ED PFSH: Medical History Essential hypertension History of migraine headaches Vitamin D deficiency Hepatitis C Treatment status unknown Hx of colonic polyps Sessile on colonoscopy 02/16 Depression GERD (gastroesophageal reflux disease) Peptic ulcer disease Gastric ulcer on EGD 02/16 COPD (chronic obstructive pulmonary disease) Surgical History History of colonoscopy with polypectomy 2019 Status post excision of lipoma (~01/2019) Hx of appendectomy Family History Father Tuberculosis Denies family history of Diabetes Cancer Social History Smoking and tobacco/nicotine status: current every day tobacco/nicotine user cigarettes Packs smoked per day: 1.5 Years cigarettes smoked: 46 [ Other cigarette details: started at age 22] Second hand smoke exposure: No Alcohol intake: current Alcohol intake frequency: holidays/special occasions only Substance/Drug Use: unknown Adopted: No Caregiver/support person: No Lives independently: Yes Household members: spouse Housing: House Marital status: service: No Current occupational status: retired Pets and animals: Yes Do you think of yourself as: Straight/Heterosexual Current gender identity: Male Physical Exam Const: GENERAL APPEARANCE: cooperative ORIENTATION/CONSCIOUSNESS: Yes awake, Yes oriented to person, Yes oriented to place and Yes oriented to time HENMT: COMMON NORMALS: normocephalic, atraumatic and hearing grossly normal bilaterally HEAD & SCALP: normocephalic and atraumatic Resp: EFFORT & INSPECTION: Yes Actively coughing AUSCULTATION: rhonchi and wheezes Cardio: COMMON NORMALS: regular rate, regular rhythm and No murmurs present (Cardio) RATE: regular rate RHYTHM: regular rhythm GI: COMMON NORMALS: Soft to palpation and No hepatosplenomegaly present AUSCULTATION: Yes normoactive bowel sounds PALPATION: Yes Soft to palpation, No Tenderness to palpation present (GI), No Guarding due to palpation present (GI) and Yes No hepatosplenomegaly present Extremity: COMMON NORMALS: normal to inspection, capillary refill normal, no clubbing, cyanosis or edema, no calf tenderness and no pedal edema Neuro: SENSORIUM/ORIENTATION: Yes oriented to person, Yes oriented to place and Yes oriented to time Skin: COMMON NORMALS: no rashes or lesions noted GENERAL SKIN EXAM: no rashes or lesions noted Course Vital Signs: Vital signs: Vital Signs Temperature 97.8 F 11/23/24 10:03 Pulse Rate 102 H 11/23/24 13:06 Respiratory Rate 28 H 11/23/24 13:06 Blood Pressure 121/75 11/23/24 13:06 Pulse Oximetry 95 11/23/24 13:06 Oxygen Delivery Me thod BiPAP 11/23/24 13:06 Oxygen Flow Rate 2.5 11/23/24 10:23 Fraction of Inspir ed Oxygen 30 11/23/24 12:56 MDM - SOB/Dyspnea Medical Decision Making Patient presents with acute hypercapnic respiratory failure. Will admit. Started room on BiPAP in the ED repeat blood gas did show some improvement. Was also given steroids and nebulizers she still requiring increased oxygen supplementation discussed with hospitalist will place on observation Medical Records I reviewed the patient's medical records. Lab Data I reviewed the patient's lab results. 11/23/24 10:29 11/23/24 10:29 Labs/Radiology: Radiology Impressions Chest X-Ray 11/23/24 10:06 IMPRESSION: 1. Pulmonary hyperinflation. No acute finding. Laboratory Results WBC 8.43 10^3/uL (3.29-11.43) 11/23/24 10:29 RBC 4.33 10^6/uL (3.85-5.65) 11/23/24 10:29 Hgb 12.30 g/dL (11.27-16.99) 11/23/24 10:29 Hct 43.3 % (37-53) 11/23/24 10: MCV 100.0 fl (82-101) 11/23/24 10: MCH 28.4 pg (27-33) 11/23/24 10: MCHC 28.4 g/dL (30-55) L 11/23/24 10: RDW 12.2 % (12.1-15.1) 11/23/24 10: Plt Count 253 10^3/cmm (157-399) 11/23/24 10: MPV 10.2 fL (7.4-10.4) 11/23/24 10: Neut % (Auto) 80.5 % 11/23/24 10: Lymph % (Auto) 6.5 % 11/23/24 10: Desha % (Auto) 7.0 % 11/23/24 10: Eos % (Auto) 4.7 % 11/23/24 10: Baso % (Auto) 0.8 % 11/23/24 10: Neut # (Auto) 6.78 10^3/uL (1.8-7.7) 11/23/24 10: Lymph # (Auto) 0.6 10^3/uL (0.8-4.8) L 11/23/24 10: Desha # (Auto) 0.6 10^3/uL (0.2-0.9) 11/23/24 10: Eos # (Auto) 0.4 10^3/uL (0.0-0.8) 11/23/24 10: Baso # (Auto) 0.1 10^3/uL (0.0-0.1) 11/23/24 10: Nucleated RBC % (auto) 0 % 11/23/24 10: Nucleated RBCs # 0.0 /100WBC 11/23/24 10: Specimen Type Arterial 11/23/24 12:43 Sample Site Radial, right 11/23/24 12:43 ABG pH 7.37 (7.35-7.45) 11/23/24 12:43 ABG pCO2 64.8 mmHg (35-45) H* 11/23/24 12:43 ABG pO2 68.8 mmHg (80.0-100.0) L 11/23/24 12:43 ABG PO2/FiO2 Ratio 229 11/23/24 12:43 ABG HCO3 37.5 mmol/L (22-26) H 11/23/24 12:43 ABG O2 Saturation 94.8 11/23/24 12:43 ABG Base Excess 10.0 mmol/L (-2.0-2.0) H 11/23/24 12:43 Italo Test Pos 11/23/24 12:43 A-a O2 Gradient 8.7 mmHg (5-10) 11/23/24 12:43 Hematocrit 37.3 % (42-52) L 11/23/24 12:43 Hgb O2 Saturation 92.8 % (95-100) L 11/23/24 12:43 Carboxyhemoglobin 1.0 %THgb (0.4-20.1) 11/23/24 12:43 Methemoglobin 1.1 % (0.4-1.5) 11/23/24 12:43 Total Hemoglobin 12.2 g/dL (14-18) L 11/23/24 12:43 Sodium 142.0 mmol/L (131-143) 11/23/24 12:43 Potassium 4.4 mmol/L (3.5-5.0) 11/23/24 12:43 Glucose 97.0 mg/dL (70-115) 11/23/24 12:43 Ionized Calcium 1.2 mmol/L (1.1-1.4) 11/23/24 12:43 O2 Delivery Device Bipap 11/23/24 12:43 O2 Liters/Min 2.5 % 11/23/24 10:58 FiO2 30.0 % 11/23/24 12:43 Mangle Catcher ID Walci 11/23/24 12:43 Sodium 141 mmol/L (136-145) 11/23/24 10:29 Potassium 4.3 mmol/L (3.5-5.1) 11/23/24 10:29 Chloride 99 mmol/L (98-107) 11/23/24 10:29 Carbon Dioxide 30 mmol/L (22-29) H 11/23/24 10:29 Anion Gap 16.3 (5-19) 11/23/24 10:29 BUN 14 mg/dL (8-23) 11/23/24 10:29 Creatinine 0.8 mg/dL (0.7-1.2) 11/23/24 10:29 GFR Calculation 96.1 mL/min (90-130) 11/23/24 10:29 Glucose 94 mg/dL (65-115) 11/23/24 10:29 Calculated Osmolality 292 mOsm/kg (285-295) 11/23/24 10: Calcium 9.1 mg/dL (8.5-10.5) 11/23/24 10:29 Total Bilirubin 0.2 mg/dL (0.15-1.2) 11/23/24 10:29 AST 16 U/L (0-40) 11/23/24 10: ALT 9 U/L (0-41) 11/23/24 10:29 Alkaline Phosphatase 93 U/L (40-130) 11/23/24 10:29 Troponin T Baseline 29 ng/L (0-15) H 11/23/24 10: Troponin T 120 Minute 29.64 ng/L (0-15) H 11/23/24 12:38 Delta Troponin T 0.64 ABS# (0-10) 11/23/24 12:38 Total Protein 7.2 g/dL (6.6-8.7) 11/23/24 10: Albumin 4.2 g/dL (3.5-5.2) 11/23/24 10: Globulin 3.0 g/dL (1.3-4.6) 11/23/24 10:29 Influenza A (PCR) Negative (Negative) 11/23/24 10:24 Influenza Type B (PCR) Negative (Negative) 11/23/24 10:24 RSV (PCR) Negative (Negative) 11/23/24 10:24 SARS-CoV-2 (PCR) Negative (Negative) 11/23/24 10:24 All radiology interpretation(s) finalized by discharge EKG Data EKG 1: Interpretation: EKG 11 23 20242025-05-07 sinus tachycardia right axis deviation rate of 109 OR interval [address] changes noted. EKG 2: Interpretation: EKG 11/23/2024 1346 sinus tachycardia rate of [address] changes. OR interval 188 Discharge Plan Discharge Patient Disposition: Placed in Observation Admit Provider: Sri Valdovinos Clinical Impression: Acute on chronic respiratory failure with hypoxia and hypercapnia, Acute exacerbation of chronic obstructive airways disease Condition: Stable Coding Level of Care Code ED Telehealth Director for Oli Moise
[2024-11-23] MEDS: methylPREDNISolone sod succ 125 mg/2 mL INJ IV (10:22)
[2024-11-23] MEDS: ipratropium-albuterol 3 mL Neb INHALATION ×2 (10:26→21:09)
[2024-11-23 10:36] LABS: Basophils # 0.1 10^3/uL (0.0-0.1); Basophils % 0.8 %; Eosinophils # 0.4 10^3/uL (0.0-0.8); Eosinophils % 4.7 %; Hematocrit 43.3 % (37-53); Lymphocytes # 0.6 10^3/uL (0.8-4.8); Lymphocytes % 6.5 %; Mean Corpuscular HGB Conc 28.4 g/dL (30-55); Mean Corpuscular Hemoglobin 28.4 pg (27-33); Mean Platelet Volume 10.2 fL (7.4-10.4); Monocytes # 0.6 10^3/uL (0.2-0.9); Neutrophils # 6.78 10^3/uL (1.8-7.7); Neutrophils % 80.5 %; Nucleated Red Blood Cells % 0 %; Platelet Count 253 10^3/cmm (157-399); Red Blood Count 4.33 10^6/uL (3.85-5.65); Red Cell Distribution Width 12.2 % (12.1-15.1); White Blood Count 8.43 10^3/uL (3.29-11.43)
[2024-11-23 11:06] LABS: Troponin(5th) Baseline 29 ng/L (0-15)
[2024-11-23 11:09] LABS: ABG PCO2 71.7 mmHg (35-45); ABG PH Result 7.33 (7.35-7.45); Base Excess ABG 9.5 mmol/L (-2.0-2.0); Blood Gas Allen Test Pos; Blood Gas LPM 2.5 %; Blood Gas Operator Identificat WALCI; Blood Gas Sample Site Radial, right; Blood Gas Sample Type Arterial; Carboxyhemoglobin 0.9 %THgb (0.4-20.1); HCO3 ABG 37.9 mmol/L (22-26); Ionized Calcium Level - ABG 1.2 mmol/L (1.1-1.4); Methemoglobin 1.2 % (0.4-1.5); Oxygen Device NC; PO2 ABG 97.1 mmHg (80.0-100.0); Total Hemoglobin 12.1 g/dL (14-18)
[2024-11-23 11:15] LABS: Alanine Aminotransferase 9 U/L (0-41); Albumin Level 4.2 g/dL (3.5-5.2); Alkaline Phosphatase 93 U/L (40-130); Anion Gap 16.3 (5-19); Aspartate Amino Transferase 16 U/L (0-40); Blood Urea Nitrogen 14 mg/dL (8-23); Calcium 9.1 mg/dL (8.5-10.5); Carbon Dioxide 30 mmol/L (22-29); Chloride 99 mmol/L (98-107); Creatinine Clr Calc Pharmacy 57.8325; Glomerular Filtration Rate 96.1 mL/min (90-130); Glucose 94 mg/dL (65-115); Osmolality Calculated 292 mOsm/kg (285-295); Potassium 4.3 mmol/L (3.5-5.1); Sodium 141 mmol/L (136-145); Total Bilirubin 0.2 mg/dL (0.15-1.2); Total Protein 7.2 g/dL (6.6-8.7)
[2024-11-23 11:18] LABS: Influenza A NEGATIVE (Negative); Influenza B NEGATIVE (Negative); Respiratory Syncytial Virus Ce NEGATIVE (Negative); SARS-CoV-2 PCR NEGATIVE (Negative)
[2024-11-23 11:23] LABS: Slide Review Slide Review Perform
[2024-11-23 12:55] LABS: ABG PCO2 64.8 mmHg (35-45); ABG PH Result 7.37 (7.35-7.45); Alveolar-Arterial Oxygen Gradi 8.7 mmHg (5-10); Arterial Blood Gas Hematocrit 37.3 % (42-52); Blood Gas Allen Test Pos; Blood Gas Operator Identificat WALCI; Blood Gas Sample Site Radial, right; Blood Gas Sample Type Arterial; HCO3 ABG 37.5 mmol/L (22-26); HGB O2 Sat 92.8 % (95-100); Ionized Calcium Level - ABG 1.2 mmol/L (1.1-1.4); Methemoglobin 1.1 % (0.4-1.5); Oxygen Device BIPAP; Oxygen Saturation ABG 94.8; PO2 ABG 68.8 mmHg (80.0-100.0); PO2 FiO2 Ratio Arterial Blood 229; Potassium Level - ABG 4.4 mmol/L (3.5-5.0); Total Hemoglobin 12.2 g/dL (14-18)
[2024-11-23 13:01] LABS: Troponin 5 2HR 29.64 ng/L (0-15); Troponin 5 2HR Delta 0.64 ABS# (0-10)
--- NOTE | 2024-11-23 13:34 | PM.HP ---
Providers/Chief Complaint Primary Care Provider: Ellie Irene MD Chief Complaint: SOB History of Present Illness Naren Pritchard is a 69 year old male With past medical history of hypertension, COPD, vitamin D deficiency, hyperlipidemia hepatitis C, GERD, depression presented to the hospital today with complaints of shortness of breath that has been going on for the last few days. He is usually on 2 L nasal cannula [id number] however now is requiring 5 L and saturating around 91%. Denies hemoptysis chest pain fever chills nausea vomiting diarrhea. Additionally reports he is having a nonproductive cough. Blood pressure 122/65, Respiratory 31 arrival, temperature 97.8. Patient was given 80 of IV Lasix and solumedrol 125 x1. Chest x-ray was performed and showed hyperinflated lung garcia. He states he did not get a refill on his Eliquis and only finished 1 pack given last year. Has not seen graduate research assistant again. Medications/Allergies Home Medications ?Medication ?Instructions ?Recorded ?Confirmed ?Last Taken ?Type aspirin 81 mg tablet,delayed 81 mg PO DAILY 11/27/19 11/23/24 11/22/24 History release albuterol sulfate 90 mcg/actuation 2 inh inhalation Q6H PRN shortness 03/23/24 11/23/24 11/22/24 Rx aerosol inhaler of breath or wheezing #8.5 grams isosorbide mononitrate 30 mg 30 mg PO DAILY #90 tabs 05/23/24 11/23/24 11/22/24 Rx tablet,extended release 24 hr nitroglycerin 0.4 mg sublingual 0.4 mg sublingual Q5M PRN chest 08/16/24 11/23/24 Unknown Rx tablet pain #25 tabs metoprolol succinate 25 mg 12.5 mg (1/2 x 25 mg) PO DAILY #45 11/16/24 11/23/24 11/22/24 Rx tablet,extended release 24 hr tabs albuterol sulfate 2.5 mg/0.5 mL 5 mg inhalation QID 11/23/24 11/23/24 Unknown History solution for nebulization amlodipine 5 mg tablet 5 mg PO DAILY 11/23/24 11/23/24 Unknown History glycopyrrolate 9 mcg-formoterol 2 puff inhalation BID 11/23/24 11/23/24 11/22/24 History 4.8 mcg HFA aerosol inhaler (Bevespi Aerosphere) guaifenesin 400 mg tablet 400 mg PO TID 11/23/24 11/23/24 Unknown History melatonin 5 mg tablet 10 mg PO DAILY 11/23/24 11/23/24 Unknown History omeprazole 20 mg tablet,delayed 20 mg PO BID 11/23/24 11/23/24 Unknown History release trazodone 50 mg tablet 50 mg PO BEDTIME 11/23/24 11/23/24 Unknown History Allergies Allergy/AdvReac Type Severity Reaction Status Date / Time No Known Allergies Allergy Verified 08/02/24 22:45 PFSH Acute PFSH: Medical History Essential hypertension History of migraine headaches Vitamin D deficiency Hepatitis C Treatment status unknown Hx of colonic polyps Sessile on colonoscopy 02/16 Depression GERD (gastroesophageal reflux disease) Peptic ulcer disease Gastric ulcer on EGD 02/16 COPD (chronic obstructive pulmonary disease) Surgical History History of colonoscopy with polypectomy 2019 Status post excision of lipoma (~01/2019) Hx of appendectomy Family History Father Tuberculosis Denies family history of Diabetes Cancer Social History Smoking and tobacco/nicotine status: current every day tobacco/nicotine user cigarettes Packs smoked per day: 1.5 Years cigarettes smoked: 46 [ Other cigarette details: started at age 22] Second hand smoke exposure: No Alcohol intake: current Alcohol intake frequency: holidays/special occasions only Substance/Drug Use: unknown Adopted: No Caregiver/support person: No Lives independently: Yes Household members: spouse Housing: House Marital status: service: No Current occupational status: retired Pets and animals: Yes Do you think of yourself as: Straight/Heterosexual Current gender identity: Male Vitals/I&O/Wt Last Vital Signs Temp 97.8 F 11/23/24 10:03 Pulse 102 H 11/23/24 13:06 Resp 28 H 11/23/24 13:06 BP 121/75 11/23/24 13:06 Pulse Ox 95 11/23/24 13:06 O2 Del Method BiPAP 11/23/24 13:06 O2 Flow Rate 2.5 11/23/24 10:23 FiO2 30 11/23/24 12:56 Weight last 48 hrs Weight 46.266 kg Physical Exam Narrative: General: No acute distress, AO x3, chronically ill appearing HEENT: PERRLA, pupils bilaterally equal and reactive, pallors not present Chest: Wheezing present bilaterally. CVS: S1-S2 regular, no murmurs, Abdomen: Soft, nontender, no organomegaly, bowel sounds present Neuro: Nonfocal, power 5/5 in all limbs Data 11/23/24 10:29 11/23/24 10:29 A&P Assessment and plan (1) Essential hypertension: (2) PIMENTEL (dyspnea on exertion): (3) GERD (gastroesophageal reflux disease): Qualifiers: Esophagitis presence: without esophagitis Qualified Code(s): K21.9 - Gastro-esophageal reflux disease without esophagitis (4) Chronic hypoxic respiratory failure, on home oxygen therapy: (5) COPD (chronic obstructive pulmonary disease): Qualifiers: COPD type: emphysema Emphysema type: other Qualified Code(s): J43.8 - Other emphysema Plan #COPD exacerbation #Hx of end stage COPD #CAD s/p NSTEMI in past #Hypertension, hyperlipidemia #Smoker #History hepatitis C #GERD #History of migraine headaches #Has history of partially occlusive distal PE #Severe protein calorie malnutrition ? DuoNeb every 6 hours scheduled ? Solu-Medrol 40 IV twice daily ? Azithromycin 500 daily ? Continue amlodipine 5 daily, aspirin 81 daily, Imdur, metoprolol succinate 12.5 daily ? Continue albuterol 20 twice daily ? Continue trazodone 50 daily. ? Check CTA PE protocol ? Does have a history of aspiration in the past as well. Had a modified barium swallow in November 2023. Laryngeal penetration improved with thicker liquids. - Additionally patient does have a spiculated right upper lobe nodule for which PET scan was performed in May 2020 for suspicious for malignancy. -Patient used to follow with Dr. Harkins and last saw him in March 2024. Patient has had several ER visits with complaint of shortness of breath and today presents for the same. ? Consider triple nebulization Yessicapecurt, Pulmicort,perforomist at time of discharge. ? Check sputum Gram stain culture - On review of records it seems patient was given a DVT PE starter pack in March 2024 last year however on subsequent visits that medication is not listed. He states he has not taken that medication again. ? Check CTA PE protocol. If patient does have a PE we will restart Eliquis. No longer has any history of dysphagia and is on regular food at this point. Full code DVT prophylaxis: Heparin SQ twice daily. PDMP PDMP Reviewed: Not Reviewed Attestations Medical Necessity Statement*: COPD exacerbation Diagnoses Essential hypertension I10 PIMENTEL (dyspnea on exertion) R06.09 Gastroesophageal reflux disease without esophagitis K21.9 Esophagitis presence: without esophagitis Chronic hypoxic respiratory failure, on home oxygen therapy J96.11; Z99.81 Other emphysema J43.8 COPD type: emphysema Emphysema type: other
--- NOTE | 2024-11-23 13:46 | ECG_ITS ---
Prompt[employer]ly Test Date: 2024-11-23 Pat Name: Nraen Pritchard Department: Room: 251 Gender: Male Lubricator Granulator: : 1955 Requested By: Rolly Engel Order Number: [id number] Reading MD: MENDEZ HEREDIA Measurements Intervals [place] Rate: 101 P: 84 MO: 188 QRS: 89 QRSD: 76 T: 80 QT: 310 QTc: 402 Interpretive Statements SINUS TACHYCARDIA POSSIBLE LEFT ATRIAL ENLARGEMENT [-0.1mV P-WAVE IN V1/V2] ABNORMAL RHYTHM ECG Compared to ECG 11/23/2024 10:07:29 No significant changes Electronically Signed On 11-26-2024 21:02:03 CDT by MENDEZ HEREDIA [email or web address]
--- NOTE | 2024-11-23 13:53 | CT_ITS ---
WS: [id number] CTA OF THE CHEST WITH PULMONARY EMBOLISM PROTOCOL TECHNIQUE: High-resolution contrast enhanced CTA of the chest with coronal and sagittal reformatted images with pulmonary embolism protocol. MIP images are also reviewed. CLINICAL INFORMATION: high suspicion of PE COMPARISON: 2023 DLP: 183.[address] scans at [facility] use at least one of these dose optimization techniques: automated exposure control; mA and/or kV adjustment per patient size (includes targeted exams where dose is matched to clinical indication); or iterative reconstruction. FINDINGS: Proximal main pulmonary arteries are normal. Normal segmental and subsegmental pulmonary arteries. No evidence of pulmonary embolus. Normal caliber thoracic aorta. Aortic calcification. No mediastinal or hilar lymphadenopathy. Mild chronic emphysematous changes. Fibrotic appearing opacity in the RIGHT upper lobe is unchanged since 2023. No focal pneumonia. A few interstitial opacities in the lung bases likely inflammatory. No other suspicious pulmonary parenchymal abnormalities. Mild soft tissue edema partially visualized in the RIGHT lower neck. Adrenal glands are normal. Cholelithiasis. CT/CT angio chest PE protcl [id number] IMPRESSION: 1. No evidence of pulmonary embolus. 2. Stable spiculated fibrotic lesion RIGHT upper lobe unchanged since 4. 3. Few interstitial opacities in the lung bases likely inflammatory. 4. Cholelithiasis. 5. Small esophageal hiatal hernia.
[2024-11-23] MEDS: iohexol 350 mg/mL 500 mL Btl (per mL) IV (14:12)
[2024-11-23 14:31] LABS: NT Pro B Type Natriuretic Pept 151 pg/mL (0-125)
[2024-11-23] MEDS: heparin 5,000 unit/mL INJ 1 mL 5000 UNIT SUBCUT (15:01)
[2024-11-23] MEDS: levofloxacin-dextrose 5 % 500 MG/100 ML PREMIX 100 MG IV (15:14)
--- NOTE | 2024-11-23 16:20 | ECG_ITS ---
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
[2024-11-23 18:02] LABS: Troponin 5 6HR 24.76 ng/L (0-15)
[2024-11-23 18:03] LABS: Troponin 5 6HR Delta -4.24 ng/L (0-12)
[2024-11-23] MEDS: albuterol 2.5 mg/3 mL Neb INHALATION (18:38)
[2024-11-23] MEDS: methylPREDNISolone sod succ 40 mg/mL INJ IVP (20:35)
[2024-11-23] MEDS: trazodone 50 mg Tablet PO (20:35)
[2024-11-23] MEDS: budesonide 0.5 mg/2 mL Neb INHALATION (21:10)
[2024-11-24] VITALS (15 sets, daily range): BP systolic 124–177; BP diastolic 64–84; PULSE 89–121; RESP 8–23; TEMP 36.6–37.7; O2SAT 90–98; BMI 19.1
[2024-11-24] MEDS: heparin 5,000 unit/mL INJ 1 mL 5000 UNIT SUBCUT ×2 (03:33→15:38)
[2024-11-24] MEDS: ipratropium-albuterol 3 mL Neb INHALATION ×4 (03:34→20:05)
[2024-11-24 05:48] LABS: Basophils % 0.1 %; Hematocrit 38.7 % (37-53); Lymphocytes # 0.4 10^3/uL (0.8-4.8); Lymphocytes % 4.6 %; Mean Corpuscular HGB Conc 29.7 g/dL (30-55); Mean Corpuscular Hemoglobin 28.6 pg (27-33); Mean Corpuscular Volume 96.3 fl (82-101); Mean Platelet Volume 9.7 fL (7.4-10.4); Monocytes # 0.5 10^3/uL (0.2-0.9); Monocytes % 4.9 %; Neutrophils # 8.41 10^3/uL (1.8-7.7); Neutrophils % 89.9 %; Nucleated Red Blood Cells % 0 %; Platelet Count 255 10^3/cmm (157-399); Red Blood Count 4.02 10^6/uL (3.85-5.65); Red Cell Distribution Width 12.3 % (12.1-15.1); White Blood Count 9.36 10^3/uL (3.29-11.43)
[2024-11-24 06:08] LABS: Alanine Aminotransferase 9 U/L (0-41); Albumin Level 3.6 g/dL (3.5-5.2); Alkaline Phosphatase 77 U/L (40-130); Anion Gap 14.5 (5-19); Aspartate Amino Transferase 14 U/L (0-40); Blood Urea Nitrogen 22 mg/dL (8-23); Calcium 9.7 mg/dL (8.5-10.5); Carbon Dioxide 30 mmol/L (22-29); Chloride 102 mmol/L (98-107); Globulin 2.8 g/dL (1.3-4.6); Glomerular Filtration Rate 96.1 mL/min (90-130); Glucose 126 mg/dL (65-115); Magnesium 1.9 mg/dL (1.7-2.3); Osmolality Calculated 299 mOsm/kg (285-295); Potassium 4.5 mmol/L (3.5-5.1); Sodium 142 mmol/L (136-145); Total Bilirubin 0.2 mg/dL (0.15-1.2); Total Protein 6.4 g/dL (6.6-8.7)
[2024-11-24] MEDS: budesonide 0.5 mg/2 mL Neb INHALATION ×2 (07:13→20:06)
[2024-11-24] MEDS: aspirin 81 mg EC Tablet PO (08:39)
[2024-11-24] MEDS: isosorbide mononitrate ER 30 mg Tablet PO (08:39)
[2024-11-24] MEDS: metoprolol succinate ER (24 HR) 25 mg Tablet 12.5 MG PO (08:39)
[2024-11-24] MEDS: pantoprazole DR 40 mg Tablet PO (08:39)
[2024-11-24] MEDS: methylPREDNISolone sod succ 40 mg/mL INJ IVP (08:43)
--- NOTE | 2024-11-24 10:40 | P.PN_ITS ---
Subjective 2 Subjective: doing well overnight on 5L NC Naren Pritchard is a 69 year old male With past medical history of hypertension, COPD, vitamin D deficiency, hyperlipidemia hepatitis C, GERD, depression presented to the hospital today with complaints of shortness of breath that has been going on for the last few days. He is usually on 2 L nasal cannula [id number] however now is requiring 5 L and saturating around 91%. Denies hemoptysis chest pain fever chills nausea vomiting diarrhea. Additionally reports he is having a nonproductive cough. Blood pressure 122/65, Respiratory 31 arrival, temperature 97.8. Patient was given 80 of IV Lasix and solumedrol 125 x1. Chest x-ray was performed and showed hyperinflated lung garcia. He states he did not get a refill on his Eliquis and only finished 1 pack given last year. Has not seen heel dipper again. Medications: Reviewed: Yes Vitals/I&O/Wt Last Vital Signs Temp 98.6 F 11/24/24 07:42 Pulse 117 H 11/24/24 07:42 Resp 18 11/24/24 07:42 BP 177/78 11/24/24 07:42 Pulse Ox 90 11/24/24 07:42 O2 Del Method Nasal Cannula 11/24/24 07:42 O2 Flow Rate 2.5 11/24/24 07:13 FiO2 28 11/24/24 03:35 11/23/24 11/24/24 11/24/24 22:59 06:59 14:59 Intake Total 340 / 340 400 / 740 360 / 360 Output Total 200 / 200 250 / 450 Balance 140 / 140 150 / 290 360 / 360 Weight last 48 hrs Weight 111 lb 8 oz Weight 111 lb 4.8 oz Weight 102 lb Physical Exam 2 Narrative: General: No acute distress, AO x3, chronically ill appearing , 5L NC HEENT: PERRLA, pupils bilaterally equal and reactive, pallors not present Chest: Wheezing present bilaterally. CVS: S1-S2 regular, no murmurs, Abdomen: Soft, nontender, no organomegaly, bowel sounds present Neuro: Nonfocal, power 5/5 in all limbs Data 11/24/24 05:27 11/24/24 05:27 A&P Assessment and plan (1) Essential hypertension: (2) PIMENTEL (dyspnea on exertion): (3) GERD (gastroesophageal reflux disease): Qualifiers: Esophagitis presence: without esophagitis Qualified Code(s): K21.9 - Gastro-esophageal reflux disease without esophagitis (4) Chronic hypoxic respiratory failure, on home oxygen therapy: (5) COPD (chronic obstructive pulmonary disease): Qualifiers: COPD type: emphysema Emphysema type: other Qualified Code(s): J43.8 - Other emphysema Plan #COPD exacerbation #Hx of end stage COPD #CAD s/p NSTEMI in past #Hypertension, hyperlipidemia #Smoker #History hepatitis C #GERD #History of migraine headaches #Has history of partially occlusive distal PE #Severe protein calorie malnutrition ? DuoNeb every 6 hours scheduled ? Solu-Medrol 40 IV twice daily ? Azithromycin 500 daily ? Continue amlodipine 5 daily, aspirin 81 daily, Imdur, metoprolol succinate 12.5 daily ? Continue albuterol 20 twice daily ? Continue trazodone 50 daily. ? Check CTA PE protocol ? Does have a history of aspiration in the past as well. Had a modified barium swallow in November 2023. Laryngeal penetration improved with thicker liquids. - Additionally patient does have a spiculated right upper lobe nodule for which PET scan was performed in May 2020 for suspicious for malignancy. -Patient used to follow with Dr. Harkins and last saw him in March 2024. Patient has had several ER visits with complaint of shortness of breath and today presents for the same. ? Consider triple nebulization Yupelri, Pulmicort,perforomist at time of discharge. ? Check sputum Gram stain culture - On review of records it seems patient was given a DVT PE starter pack in March 2024 last year however on subsequent visits that medication is not listed. He states he has not taken that medication again. ? Check CTA PE protocol. If patient does have a PE we will restart Eliquis. No longer has any history of dysphagia and is on regular food at this point. Full code DVT prophylaxis: Heparin SQ twice daily. 09/26/24: -Heparin SQ BID -Solumedrol 40mg IV BID -azithromycin -duonebs -paramjit consider triple nebulization Yupelri, Pulmicort,perforomist at time of discharge. PDMP PDMP Reviewed: Not Reviewed Coding Level of Care Code Acute Code for Chg Fwd Diagnoses Essential hypertension I10 PIMENTEL (dyspnea on exertion) R06.09 Gastroesophageal reflux disease without esophagitis K21.9 Esophagitis presence: without esophagitis Chronic hypoxic respiratory failure, on home oxygen therapy J96.11; Z99.81 Other emphysema J43.8 COPD type: emphysema Emphysema type: other
--- NOTE | 2024-11-24 10:48 | PM.DCS ---
Discharge Providers Date of Admission: 11/23/24 13:42 Date of Discharge: November 24, 2024 Attending Provider at Admission: Sri Valdovinos MD Attending Provider at Discharge: Melvin Morgan MD Primary Care Provider: Ellie Irene MD Diagnoses at Discharge Discharge Diagnosis (1) Essential hypertension: Status: Acute (2) PIMENTEL (dyspnea on exertion): Status: Acute (3) GERD (gastroesophageal reflux disease): Status: Chronic Qualifiers: Esophagitis presence: without esophagitis Qualified Code(s): K21.9 - Gastro-esophageal reflux disease without esophagitis (4) Chronic hypoxic respiratory failure, on home oxygen therapy: Status: Acute (5) COPD (chronic obstructive pulmonary disease): Status: Chronic Qualifiers: COPD type: emphysema Emphysema type: other Qualified Code(s): J43.8 - Other emphysema Reason for Visit Reason for Visit: SOB Hospital Course Hospital Course Naren Pritchard is a 69 year old male With past medical history of hypertension, COPD, vitamin D deficiency, hyperlipidemia hepatitis C, GERD, depression presented to the hospital today with complaints of shortness of breath that has been going on for the last few days. He is usually on 2 L nasal cannula [id number]-jhzvr however now is requiring 5 L and saturating around 91%. During hospital course PE protocol negative. given Solu-Medrol and breathing treatments. in AM was back to baseline 2L NC. states he is feeling much better. doing well with PO intake. desires to go home today. will send hamzah on eliquis starter pack, prednisone 40mg x 5 days, and new triple inhaler therapy (Yupelri, Pulmicort, performist), and azithromycin to home 09/26/24: -Heparin SQ BID -Solumedrol 40mg IV BID -azithromycin -duonebs -paramjit consider triple nebulization Yupelri, Pulmicort,perforomist at time of discharge. Discharge Data Studies Completed and Pending Completed Studies During Hospitalization Category Date Time Status CTA PE [CT angio chest PE protcl [id number]] Stat Cat Scan 11/23/24 13:53 Completed XR chest 1V portable [id number] Stat Exams 11/23/24 10:06 Completed Radiology Impressions Chest X-Ray 11/23/24 10:06 IMPRESSION: 1. Pulmonary hyperinflation. No acute finding. Chest CTA 11/23/24 13:53 IMPRESSION: 1. No evidence of pulmonary embolus. 2. Stable spiculated fibrotic lesion RIGHT upper lobe unchanged since 12/09/2023. 3. Few interstitial opacities in the lung bases likely inflammatory. 4. Cholelithiasis. 5. Small esophageal hiatal hernia. Laboratory Results WBC 9.36 10^3/uL (3.29-11.43) 11/24/24 05:27 RBC 4.02 10^6/uL (3.85-5.65) 11/24/24 05:27 Hgb 11.50 g/dL (11.27-16.99) 11/24/24 05:27 Hct 38.7 % (37-53) 11/24/24 05:27 MCV 96.3 fl (82-101) 11/24/24 05:27 MCH 28.6 pg (27-33) 11/24/24 05:27 MCHC 29.7 g/dL (30-55) L 11/24/24 05:27 RDW 12.3 % (12.1-15.1) 11/24/24 05:27 Plt Count 255 10^3/cmm (157-399) 11/24/24 05:27 MPV 9.7 fL (7.4-10.4) 11/24/24 05:27 Neut % (Auto) 89.9 % 11/24/24 05:27 Lymph % (Auto) 4.6 % 11/24/24 05:27 [place] % (Auto) 4.9 % 11/24/24 05:27 Eos % (Auto) 0.0 % 11/24/24 05:27 Baso % (Auto) 0.1 % 11/24/24 05:27 Neut # (Auto) 8.41 10^3/uL (1.8-7.7) H 11/24/24 05:27 Lymph # (Auto) 0.4 10^3/uL (0.8-4.8) L 11/24/24 05:27 [place]on # (Auto) 0.5 10^3/uL (0.2-0.9) 11/24/24 05:27 Eos # (Auto) 0.0 10^3/uL (0.0-0.8) 11/24/24 05:27 Baso # (Auto) 0.0 10^3/uL (0.0-0.1) 11/24/24 05:27 Nucleated RBC % (auto) 0 % 11/24/24 05:27 Nucleated RBCs # 0.0 /100WBC 11/24/24 05:27 Specimen Type Arterial 11/23/24 12:43 Sample Site Radial, right 11/23/24 12:43 ABG pH 7.37 (7.35-7.45) 11/23/24 12:43 ABG pCO2 64.8 mmHg (35-45) H* 11/23/24 12:43 ABG pO2 68.8 mmHg (80.0-100.0) L 11/23/24 12:43 ABG PO2/FiO2 Ratio 229 11/23/24 12:43 ABG HCO3 37.5 mmol/L (22-26) H 11/23/24 12:43 ABG O2 Saturation 94.8 11/23/24 12:43 ABG Base Excess 10.0 mmol/L (-2.0-2.0) H 11/23/24 12:43 Italo Test Pos 11/23/24 12:43 A-a O2 Gradient 8.7 mmHg (5-10) 11/23/24 12:43 Hematocrit 37.3 % (42-52) L 11/23/24 12:43 Hgb O2 Saturation 92.8 % (95-100) L 11/23/24 12:43 Carboxyhemoglobin 1.0 %THgb (0.4-20.1) 11/23/24 12:43 Methemoglobin 1.1 % (0.4-1.5) 11/23/24 12:43 Total Hemoglobin 12.2 g/dL (14-18) L 11/23/24 12:43 Sodium 142.0 mmol/L (131-143) 11/23/24 12:43 Potassium 4.4 mmol/L (3.5-5.0) 11/23/24 12:43 Glucose 97.0 mg/dL (70-115) 11/23/24 12:43 Ionized Calcium 1.2 mmol/L (1.1-1.4) 11/23/24 12:43 O2 Delivery Device Bipap 11/23/24 12:43 O2 Liters/Min 2.5 % 11/23/24 10:58 FiO2 30.0 % 11/23/24 12:43 Porcelain Enamel Sprayer ID Patrice 11/23/24 12:43 Sodium 142 mmol/L (136-145) 11/24/24 05:27 Potassium 4.5 mmol/L (3.5-5.1) 11/24/24 05:27 Chloride 102 mmol/L (98-107) 11/24/24 05:27 Carbon Dioxide 30 mmol/L (22-29) H 11/24/24 05:27 Anion Gap 14.5 (5-19) 11/24/24 05:27 BUN 22 mg/dL (8-23) 11/24/24 05:27 Creatinine 0.8 mg/dL (0.7-1.2) 11/24/24 05:27 GFR Calculation 96.1 mL/min (90-130) 11/24/24 05:27 Glucose 126 mg/dL (65-115) H 11/24/24 05:27 Calculated Osmolality 299 mOsm/kg (285-295) H 11/24/24 05:27 Calcium 9.7 mg/dL (8.5-10.5) 11/24/24 05:27 Magnesium 1.9 mg/dL (1.7-2.3) 11/24/24 05:27 Total Bilirubin 0.2 mg/dL (0.15-1.2) 11/24/24 05:27 AST 14 U/L (0-40) 11/24/24 05:27 ALT 9 U/L (0-41) 11/24/24 05:27 Alkaline Phosphatase 77 U/L (40-130) 11/24/24 05:27 Troponin T Baseline 29 ng/L (0-15) H 11/23/24 10:29 Troponin T 120 Minute 29.64 ng/L (0-15) H 11/23/24 12:38 Delta Troponin T 0.64 ABS# (0-10) 11/23/24 12:38 Troponin T Hi Sens 6Hr 24.76 ng/L (0-15) H 11/23/24 17:32 Troponin T Hi Sens 6Hr Delta -4.24 ng/L (0-12) L 11/23/24 17:32 NT-Pro-B Natriuret Pep 151 pg/mL (0-125) H 11/23/24 12:38 Total Protein 6.4 g/dL (6.6-8.7) L 11/24/24 05:27 Albumin 3.6 g/dL (3.5-5.2) 11/24/24 05:27 Globulin 2.8 g/dL (1.3-4.6) 11/24/24 05:27 Influenza A (PCR) Negative (Negative) 11/23/24 10:24 Influenza Type B (PCR) Negative (Negative) 11/23/24 10:24 RSV (PCR) Negative (Negative) 11/23/24 10:24 SARS-CoV-2 (PCR) Negative (Negative) 11/23/24 10:24 Vitals Last Vital Signs Temp 98.6 F 11/24/24 07:42 Pulse 117 H 11/24/24 07:42 Resp 18 11/24/24 07:42 BP 177/78 11/24/24 07:42 Pulse Ox 90 11/24/24 07:42 O2 Del Method Nasal Cannula 11/24/24 07:42 O2 Flow Rate 2.5 11/24/24 07:13 FiO2 28 11/24/24 03:35 Discharge Plan Discharge Patient Disposition: Home Condition: Stable Prescriptions: No Action isosorbide mononitrate 30 mg tablet extended release 24 hr 30 mg PO DAILY Qty: 90 3RF albuterol sulfate 90 mcg/actuation HFA aerosol inhaler 2 inh inhalation Q6H PRN (Reason: shortness of breath or wheezing) Qty: 8.5 6RF nitroglycerin 0.4 mg tablet, sublingual 0.4 mg sublingual Q5M PRN (Reason: chest pain) Qty: 25 2RF Rx Instructions: do not exceed 3 doses per episode metoprolol succinate 25 mg tablet extended release 24 hr 12.5 mg PO DAILY Qty: 45 3RF aspirin 81 mg Tablet,Delayed Release (Dr/Ec) 81 mg PO DAILY melatonin 5 mg Tablet 10 mg PO DAILY Bevespi Aerosphere 9-4.8 mcg Hfa Aerosol Inhaler 2 puff INHALATION BID trazodone 50 mg Tablet 50 mg PO BEDTIME amlodipine 5 mg tablet 5 mg PO DAILY guaifenesin 400 mg Tablet 400 mg PO TID albuterol sulfate 2.5 mg/0.5 mL Solution For Nebulization 5 mg INHALATION QID omeprazole 20 mg Tablet,Delayed Release (Dr/Ec) 20 mg PO BID Referrals: Ellie Irene MD [Primary Care Provider] - Patient Instructions: Opioid Safety Print Language: Argentine Discharge Attestations Status at Discharge: Cognitive status at discharge: cognitively intact, Behavioral status at discharge: cooperative, Coding Level of Care Code Acute Code for Chg Fwd Diagnoses Essential hypertension I10 PIMENTEL (dyspnea on exertion) R06.09 Gastroesophageal reflux disease without esophagitis K21.9 Esophagitis presence: without esophagitis Chronic hypoxic respiratory failure, on home oxygen therapy J96.11; Z99.81 Other emphysema J43.8 COPD type: emphysema Emphysema type: other
--- NOTE | 2024-11-24 10:58 | P.PN_ITS ---
Subjective 2 Subjective: no events overnight NC at 2.5lpm states he is feeling a little improved from yesterday. still some SOB and wheezing Medications: Reviewed: Yes Vitals/I&O/Wt Last Vital Signs Temp 98.6 F 11/24/24 07:42 Pulse 117 H 11/24/24 07:42 Resp 18 11/24/24 07:42 BP 177/78 11/24/24 07:42 Pulse Ox 90 11/24/24 07:42 O2 Del Method Nasal Cannula 11/24/24 07:42 O2 Flow Rate 2.5 11/24/24 07:13 FiO2 28 11/24/24 03:35 11/23/24 11/24/24 11/24/24 22:59 06:59 14:59 Intake Total 340 / 340 400 / 740 360 / 360 Output Total 200 / 200 250 / 450 Balance 140 / 140 150 / 290 360 / 360 Weight last 48 hrs Weight 111 lb 8 oz Weight 111 lb 4.8 oz Weight 102 lb Physical Exam 2 Narrative: General: No acute distress, AO x3, chronically ill appearing. 2.5lpm HEENT: PERRLA, pupils bilaterally equal and reactive, pallors not present Chest: Wheezing present bilaterally whith some rhonchi CVS: S1-S2 regular, no murmurs, Abdomen: Soft, nontender, no organomegaly, bowel sounds present Neuro: Nonfocal, power 5/5 in all limbs Data 11/24/24 05:27 11/24/24 05:27 A&P Assessment and plan (1) Essential hypertension: (2) PIMENTEL (dyspnea on exertion): (3) GERD (gastroesophageal reflux disease): Qualifiers: Esophagitis presence: without esophagitis Qualified Code(s): K21.9 - Gastro-esophageal reflux disease without esophagitis (4) Chronic hypoxic respiratory failure, on home oxygen therapy: (5) COPD (chronic obstructive pulmonary disease): Qualifiers: COPD type: emphysema Emphysema type: other Qualified Code(s): J43.8 - Other emphysema Plan #COPD exacerbation #Hx of end stage COPD #CAD s/p NSTEMI in past #Hypertension, hyperlipidemia #Smoker #History hepatitis C #GERD #History of migraine headaches #Has history of partially occlusive distal PE #Severe protein calorie malnutrition ? DuoNeb every 6 hours scheduled ? Solu-Medrol 40 IV twice daily ? Azithromycin 500 daily ? Continue amlodipine 5 daily, aspirin 81 daily, Imdur, metoprolol succinate 12.5 daily ? Continue albuterol 20 twice daily ? Continue trazodone 50 daily. ? Check CTA PE protocol ? Does have a history of aspiration in the past as well. Had a modified barium swallow in November 2023. Laryngeal penetration improved with thicker liquids. - Additionally patient does have a spiculated right upper lobe nodule for which PET scan was performed in May 2020 for suspicious for malignancy. -Patient used to follow with Dr. Harkins and last saw him in March 2024. Patient has had several ER visits with complaint of shortness of breath and today presents for the same. ? Consider triple nebulization Ra Ivanperforomist at time of discharge. ? Check sputum Gram stain culture - On review of records it seems patient was given a DVT PE starter pack in March 2024 last year however on subsequent visits that medication is not listed. He states he has not taken that medication again. ? Check CTA PE protocol. If patient does have a PE we will restart Eliquis. No longer has any history of dysphagia and is on regular food at this point. Full code DVT prophylaxis: Heparin SQ twice daily. 11/24/24 -DVT prophylaxis: Hep BID -Solu -Medrol 40mg IV BID -azithromycin -continue breathing treatments -refill breztri vs Ra Ivanperforomis -likely d/c in AM PDMP PDMP Reviewed: Not Reviewed Attestations 2 Medical Necessity Statement*: requires 2 overnight stays due to COPD exacerbation Coding Level of Care Code 64919 Diagnoses Essential hypertension I10 PIMENTEL (dyspnea on exertion) R06.09 Gastroesophageal reflux disease without esophagitis K21.9 Esophagitis presence: without esophagitis Chronic hypoxic respiratory failure, on home oxygen therapy J96.11; Z99.81 Other emphysema J43.8 COPD type: emphysema Emphysema type: other
[2024-11-24] MEDS: levofloxacin-dextrose 5 % 500 MG/100 ML PREMIX 100 MG IV (15:38)
--- NOTE | 2024-11-24 16:15 | PC.NURSE ---
pts iv got pulled out, dr. benson okayed to leave out.
--- NOTE | 2024-11-24 19:43 | PC.NURSE ---
Nurse spoke with Hospitalist Dr. Jean-Baptiste about patients solu-medrol, Dr. Jean-Baptiste ojayed to D/C medication.
[2024-11-24] MEDS: trazodone 50 mg Tablet PO (20:33)
[2024-11-25] VITALS (9 sets, daily range): BP systolic 117–144; BP diastolic 69–81; PULSE 78–99; RESP 8–19; TEMP 36.6–36.8; O2SAT 93–99
[2024-11-25] MEDS: heparin 5,000 unit/mL INJ 1 mL 5000 UNIT SUBCUT (01:07)
[2024-11-25] MEDS: ipratropium-albuterol 3 mL Neb INHALATION ×2 (02:45→07:15)
[2024-11-25] MEDS: levoFLOXacin 750 mg Tablet PO (05:02)
--- NOTE | 2024-11-25 07:06 | PM.DCS ---
Discharge Providers Date of Admission: 11/23/24 13:42 Date of Discharge: November 25, 2024 Attending Provider at Admission: Sri Valdovinos MD Attending Provider at Discharge: Melvin Morgan MD Primary Care Provider: Ellie Irene MD Diagnoses at Discharge Discharge Diagnosis (1) Essential hypertension: Status: Acute (2) PIMENTEL (dyspnea on exertion): Status: Acute (3) GERD (gastroesophageal reflux disease): Status: Chronic Qualifiers: Esophagitis presence: without esophagitis Qualified Code(s): K21.9 - Gastro-esophageal reflux disease without esophagitis (4) Chronic hypoxic respiratory failure, on home oxygen therapy: Status: Acute (5) COPD (chronic obstructive pulmonary disease): Status: Chronic Qualifiers: COPD type: emphysema Emphysema type: other Qualified Code(s): J43.8 - Other emphysema Reason for Visit Reason for Visit: SOB Hospital Course Hospital Course Naren Pritchard is a 69 year old male With past medical history of hypertension, COPD, vitamin D deficiency, hyperlipidemia hepatitis C, GERD, depression presented to the hospital today with complaints of shortness of breath that has been going on for the last few days.? He is usually on 2 L nasal cannula [id number] however now is requiring 5 L and saturating around 91%. During hospital course PE protocol negative. given Solu-Medrol and breathing treatments. in AM was back to baseline 2L NC. States he is feeling much better. Doing well with PO intake. Will send home on levofloxacin and prednisone. Refill in halers. Good candidate for triple inhaler therapy in outpatient setting. will start on breztri Physical Exam Narrative: General: No acute distress, AO x3, chronically ill appearing. 2.5lpm HEENT: PERRLA, pupils bilaterally equal and reactive, pallors not present Chest: Wheezing present bilaterally whith some rhonchi CVS: S1-S2 regular, no murmurs, Abdomen: Soft, nontender, no organomegaly, bowel sounds present Neuro: Nonfocal, power 5/5 in all limbs Discharge Data Studies Completed and Pending Completed Studies During Hospitalization Category Date Time Status CTA PE [CT angio chest PE protcl [id number]] Stat Cat Scan 11/23/24 13:53 Completed XR chest 1V portable [id number] Stat Exams 11/23/24 10:06 Completed Radiology Impressions Chest X-Ray 11/23/24 10:06 IMPRESSION: 1. Pulmonary hyperinflation. No acute finding. Chest CTA 11/23/24 13:53 IMPRESSION: 1. No evidence of pulmonary embolus. 2. Stable spiculated fibrotic lesion RIGHT upper lobe unchanged since 12/09/2023. 3. Few interstitial opacities in the lung bases likely inflammatory. 4. Cholelithiasis. 5. Small esophageal hiatal hernia. Laboratory Results WBC 9.36 10^3/uL (3.29-11.43) 11/24/24 05:27 RBC 4.02 10^6/uL (3.85-5.65) 11/24/24 05:27 Hgb 11.50 g/dL (11.27-16.99) 11/24/24 05:27 Hct 38.7 % (37-53) 11/24/24 05:27 MCV 96.3 fl (82-101) 11/24/24 05:27 MCH 28.6 pg (27-33) 11/24/24 05:27 MCHC 29.7 g/dL (30-55) L 11/24/24 05:27 RDW 12.3 % (12.1-15.1) 11/24/24 05:27 Plt Count 255 10^3/cmm (157-399) 11/24/24 05:27 MPV 9.7 fL (7.4-10.4) 11/24/24 05:27 Neut % (Auto) 89.9 % 11/24/24 05:27 Lymph % (Auto) 4.6 % 11/24/24 05:27 Iroquois % (Auto) 4.9 % 11/24/24 05:27 Eos % (Auto) 0.0 % 11/24/24 05:27 Baso % (Auto) 0.1 % 11/24/24 05:27 Neut # (Auto) 8.41 10^3/uL (1.8-7.7) H 11/24/24 05:27 Lymph # (Auto) 0.4 10^3/uL (0.8-4.8) L 11/24/24 05:27 Iroquois # (Auto) 0.5 10^3/uL (0.2-0.9) 11/24/24 05:27 Eos # (Auto) 0.0 10^3/uL (0.0-0.8) 11/24/24 05:27 Baso # (Auto) 0.0 10^3/uL (0.0-0.1) 11/24/24 05:27 Nucleated RBC % (auto) 0 % 11/24/24 05: Nucleated RBCs # 0.0 /100WBC 11/24/24 05:27 Specimen Type Arterial 11/23/24 12:43 Sample Site Radial, right 11/23/24 12:43 ABG pH 7.37 (7.35-7.45) 11/23/24 12:43 ABG pCO2 64.8 mmHg (35-45) H* 11/23/24 12:43 ABG pO2 68.8 mmHg (80.0-100.0) L 11/23/24 12:43 ABG PO2/FiO2 Ratio 229 11/23/24 12:43 ABG HCO3 37.5 mmol/L (22-26) H 11/23/24 12:43 ABG O2 Saturation 94.8 11/23/24 12:43 ABG Base Excess 10.0 mmol/L (-2.0-2.0) H 11/23/24 12:43 Italo Test Pos 11/23/24 12:43 A-a O2 Gradient 8.7 mmHg (5-10) 11/23/24 12:43 Hematocrit 37.3 % (42-52) L 11/23/24 12:43 Hgb O2 Saturation 92.8 % (95-100) L 11/23/24 12:43 Carboxyhemoglobin 1.0 %THgb (0.4-20.1) 11/23/24 12:43 Methemoglobin 1.1 % (0.4-1.5) 11/23/24 12:43 Total Hemoglobin 12.2 g/dL (14-18) L 11/23/24 12:43 Sodium 142.0 mmol/L (131-143) 11/23/24 12:43 Potassium 4.4 mmol/L (3.5-5.0) 11/23/24 12:43 Glucose 97.0 mg/dL (70-115) 11/23/24 12:43 Ionized Calcium 1.2 mmol/L (1.1-1.4) 11/23/24 12:43 O2 Delivery Device Bipap 11/23/24 12:43 O2 Liters/Min 2.5 % 11/23/24 10:58 FiO2 30.0 % 11/23/24 12:43 Decorating Machine Tender ID Patrice 11/23/24 12:43 Sodium 142 mmol/L (136-145) 11/24/24 05:27 Potassium 4.5 mmol/L (3.5-5.1) 11/24/24 05:27 Chloride 102 mmol/L (98-107) 11/24/24 05:27 Carbon Dioxide 30 mmol/L (22-29) H 11/24/24 05:27 Anion Gap 14.5 (5-19) 11/24/24 05:27 BUN 22 mg/dL (8-23) 11/24/24 05:27 Creatinine 0.8 mg/dL (0.7-1.2) 11/24/24 05:27 GFR Calculation 96.1 mL/min (90-130) 11/24/24 05:27 Glucose 126 mg/dL (65-115) H 11/24/24 05:27 Calculated Osmolality 299 mOsm/kg (285-295) H 11/24/24 05:27 Calcium 9.7 mg/dL (8.5-10.5) 11/24/24 05:27 Magnesium 1.9 mg/dL (1.7-2.3) 11/24/24 05:27 Total Bilirubin 0.2 mg/dL (0.15-1.2) 11/24/24 05:27 AST 14 U/L (0-40) 11/24/24 05:27 ALT 9 U/L (0-41) 11/24/24 05:27 Alkaline Phosphatase 77 U/L (40-130) 11/24/24 05:27 Troponin T Baseline 29 ng/L (0-15) H 11/23/24 10:29 Troponin T 120 Minute 29.64 ng/L (0-15) H 11/23/24 12:38 Delta Troponin T 0.64 ABS# (0-10) 11/23/24 12:38 Troponin T Hi Sens 6Hr 24.76 ng/L (0-15) H 11/23/24 17:32 Troponin T Hi Sens 6Hr Delta -4.24 ng/L (0-12) L 11/23/24 17:32 NT-Pro-B Natriuret Pep 151 pg/mL (0-125) H 11/23/24 12:38 Total Protein 6.4 g/dL (6.6-8.7) L 11/24/24 05:27 Albumin 3.6 g/dL (3.5-5.2) 11/24/24 05:27 Globulin 2.8 g/dL (1.3-4.6) 11/24/24 05:27 Influenza A (PCR) Negative (Negative) 11/23/24 10:24 Influenza Type B (PCR) Negative (Negative) 11/23/24 10:24 RSV (PCR) Negative (Negative) 11/23/24 10:24 SARS-CoV-2 (PCR) Negative (Negative) 11/23/24 10:24 Vitals Last Vital Signs Temp 97.8 F 11/25/24 03:16 Pulse 78 11/25/24 04:50 Resp 19 H 11/25/24 03:16 BP 117/69 11/25/24 03:16 Pulse Ox 94 11/25/24 04:50 O2 Del Method Nasal Cannula 11/25/24 03:16 O2 Flow Rate 3 11/25/24 02:45 FiO2 28 11/25/24 04:50 Discharge Plan Discharge Patient Disposition: Home Condition: Stable Prescriptions: New prednisone 20 mg Tablet 40 mg PO DAILY Qty: 4 0RF Rx Instructions: start on 11/26/24 Giles Alasphere 160-9-4.8 mcg/actuation HFA aerosol inhaler 2 inh inhalation BID Qty: 10.7 1RF levofloxacin 750 mg Tablet 750 mg PO DAILY@0600 Qty: 5 0RF Continued isosorbide mononitrate 30 mg tablet extended release 24 hr 30 mg PO DAILY Qty: 90 3RF albuterol sulfate 90 mcg/actuation HFA aerosol inhaler 2 inh inhalation Q6H PRN (Reason: shortness of breath or wheezing) Qty: 8.5 6RF nitroglycerin 0.4 mg tablet, sublingual 0.4 mg sublingual Q5M PRN (Reason: chest pain) Qty: 25 2RF Rx Instructions: do not exceed 3 doses per episode metoprolol succinate 25 mg tablet extended release 24 hr 12.5 mg PO DAILY Qty: 45 3RF aspirin 81 mg Tablet,Delayed Release (Dr/Ec) 81 mg PO DAILY melatonin 5 mg Tablet 10 mg PO DAILY trazodone 50 mg Tablet 50 mg PO BEDTIME amlodipine 5 mg tablet 5 mg PO DAILY guaifenesin 400 mg Tablet 400 mg PO TID albuterol sulfate 2.5 mg/0.5 mL Solution For Nebulization 5 mg INHALATION QID omeprazole 20 mg Tablet,Delayed Release (Dr/Ec) 20 mg PO BID Discontinued Bevespi Aerosphere 9-4.8 mcg Hfa Aerosol Inhaler 2 puff INHALATION BID Discharge Orders: Discharge Order (Routine); Ordered 11/25/24 Ordered By: Melvin Morgan Referrals: Ellie Irene MD [Primary Care Provider] - Discharge Diet: Advance as tolerated Discharge Activity: Resume usual activity Patient Instructions: Opioid Safety Print Language: Frisian Discharge Attestations Time Spent in Discharge Care*: less than 30 min Status at Discharge: Cognitive status at discharge: cognitively intact, Behavioral status at discharge: cooperative, Quality Metrics Clinical Quality Measures [ No reported AMI, CVA or VTE this stay] Coding Level of Care Code 43245 Diagnoses Essential hypertension I10 PIMENTEL (dyspnea on exertion) R06.09 Gastroesophageal reflux disease without esophagitis K21.9 Esophagitis presence: without esophagitis Chronic hypoxic respiratory failure, on home oxygen therapy J96.11; Z99.81 Other emphysema J43.8 COPD type: emphysema Emphysema type: other
[2024-11-25] MEDS: budesonide 0.5 mg/2 mL Neb INHALATION (07:16)
--- NOTE | 2024-11-25 08:29 | PC.NURSE ---
Dr. Morgan gave verbal orders to discontinue medication due to a non-formulary medication.
[2024-11-25] MEDS: predniSONE 20 mg Tablet 40 MG PO (08:52)
[2024-11-25] MEDS: isosorbide mononitrate ER 30 mg Tablet PO (08:55)
[2024-11-25] MEDS: aspirin 81 mg EC Tablet PO (08:55)
[2024-11-25] MEDS: metoprolol succinate ER (24 HR) 25 mg Tablet 12.5 MG PO (08:55)
[2024-11-25] MEDS: pantoprazole DR 40 mg Tablet PO (08:56)
[2024-11-25] MEDS: benzonatate 100 mg Capsule 200 MG PO (10:19)
[2024-11-25] MEDS: albuterol 2.5 mg/3 mL Neb INHALATION (11:19)
--- NOTE | 2024-11-25 11:57 | PC.NURSE ---
Discussed discharge with patient. New medications, continued medications and stopped medications. Discussed COPD Stoplight in detail with patient. Discussed follow up appointments with patient as well. Patient verbalized understanding.
== END 2024-11-25 14:05 | disposition home or self-care (01) ==
LOC: ER 11:49 → MEDSURG 13:42
PROVIDERS: Admitting Provider Internal Medicine; Emergency Provider Family Medicine; PCP Family Medicine; Visit Provider Family Medicine
DX: J96.11 Chronic respiratory failure with hypoxia (principal); Z99.81 Dependence on supplemental oxygen; K21.9 Gastro-esophageal reflux disease without esophagitis; I10 Essential (primary) hypertension; J43.8 Other emphysema; Z79.82 Long term (current) use of aspirin; E55.9 Vitamin D deficiency, unspecified; E78.5 Hyperlipidemia, unspecified; F17.210 Nicotine dependence, cigarettes, uncomplicated; Z86.19 Personal history of other infectious and parasitic diseases; E43 Unspecified severe protein-calorie malnutrition; Z68.1 Body mass index [BMI] 19.9 or less, adult
CPT/HCPCS: 36415; 36600; 71045; 71275; 80051; 80053; 82330; 82805; 83735; 83880; 84484; 85025; 87637; 93005; 94640; 94660; 94664; 96372; 96375; 99285; G0378; J1644; J1956; J2919; J7512; J7613; J7626; J9999

== ENCOUNTER 2024-12-01 22:20 | Emergency (ER) | payer OTHER, SELFPAY ==
[2024-12-01 22:31] VITALS: BP 121/61; PULSE 86; RESP 26; TEMP 37.1; O2SAT 96; BMI 20.5
--- NOTE | 2024-12-01 22:42 | XRR_ITS ---
PROCEDURE INFORMATION: Exam: XR Chest Exam date and time: 12/01/2024 11:13 PM Age: 69 years old Clinical indication: Shortness of breath; Additional info: SOB TECHNIQUE: Imaging protocol: Radiologic exam of the chest. Views: 1 view. COMPARISON: CT angio chest PE protcl [id number] 11/23/2024 2:03 PM FINDINGS: Lungs: Unchanged hyperinflation. No focal lung infiltrate or consolidation. Pleural spaces: Unremarkable. No pleural effusion. No pneumothorax. Heart/Mediastinum: Unremarkable. No cardiomegaly. Bones/joints: Unremarkable. XR/XR chest 1V portable [id number] IMPRESSION: 1. No visualized acute cardiopulmonary process. 2. Stable chronic findings of COPD.
--- NOTE | 2024-12-01 22:47 | W.ED.SOB ---
HPI - SOB/Dyspnea General: Chief Complaint: Shortness of Breath/Dyspnea Stated Complaint: copd,sob Time Seen by Provider: 12/01/24 22:36 History of Present Illness: HPI Narrative: 69-year-old male patient who is oxygen dependent at home on 2-1/2 L. He has a history of COPD. He presents with worsening shortness of breath since around 10 PM last night. He called an ambulance. He received steroids, and [address] here, as he was an hour out. He is much improved at this point. She had a cough with some sputum production. Notes that sputum is white. No fever. No leg swelling. No chest pain. Related Data Home Medications ?Medication ?Instructions ?Recorded ?Confirmed aspirin 81 mg tablet,delayed 81 mg PO DAILY 11/27/19 11/23/24 release albuterol sulfate 2.5 mg/0.5 mL 5 mg inhalation QID 11/23/24 11/23/24 solution for nebulization amlodipine 5 mg tablet 5 mg PO DAILY 11/23/24 11/23/24 guaifenesin 400 mg tablet 400 mg PO TID 11/23/24 11/23/24 melatonin 5 mg tablet 10 mg PO DAILY 11/23/24 11/23/24 omeprazole 20 mg tablet,delayed 20 mg PO BID 11/23/24 11/23/24 release trazodone 50 mg tablet 50 mg PO BEDTIME 11/23/24 11/23/24 Previous Rx's ?Medication ?Instructions ?Recorded albuterol sulfate 90 mcg/actuation 2 inh inhalation Q6H PRN shortness 03/23/24 aerosol inhaler of breath or wheezing #8.5 grams isosorbide mononitrate 30 mg 30 mg PO DAILY #90 tabs 05/23/24 tablet,extended release 24 hr nitroglycerin 0.4 mg sublingual 0.4 mg sublingual Q5M PRN chest 08/16/24 tablet pain #25 tabs metoprolol succinate 25 mg 12.5 mg (1/2 x 25 mg) PO DAILY #45 11/16/24 tablet,extended release 24 hr tabs budesonide 160 mcg-glycopyr 9 2 inh inhalation BID #10.7 grams 11/25/24 mcg-formot 4.8 mcg/actuation HFA inhaler (Breztri Aerosphere) levofloxacin 750 mg tablet 750 mg PO DAILY@0600 #5 tabs 11/25/24 prednisone 20 mg tablet 40 mg (2 x 20 mg) PO DAILY #4 tabs 11/25/24 doxycycline hyclate 100 mg tablet 100 mg PO BID 7 days #14 tabs 12/01/24 prednisone 10 mg tablet 10 mg PO DIRECTED #30 tabs 12/01/24 Allergies Allergy/AdvReac Type Severity Reaction Status Date / Time No Known Allergies Allergy Verified 08/02/24 22:45 PFSH ED PFSH: Medical History Essential hypertension History of migraine headaches Vitamin D deficiency Hepatitis C Treatment status unknown Hx of colonic polyps Sessile on colonoscopy 02/16 Depression GERD (gastroesophageal reflux disease) Peptic ulcer disease Gastric ulcer on EGD 02/16 COPD (chronic obstructive pulmonary disease) Surgical History History of colonoscopy with polypectomy 2019 Status post excision of lipoma (~01/2019) Hx of appendectomy Family History Father Tuberculosis Denies family history of Diabetes Cancer Social History Smoking and tobacco/nicotine status: current every day tobacco/nicotine user cigarettes Packs smoked per day: 1.5 Years cigarettes smoked: 46 [ Other cigarette details: started at age 22] Second hand smoke exposure: No Alcohol intake: current Alcohol intake frequency: holidays/special occasions only Substance/Drug Use: unknown Adopted: No Caregiver/support person: No Lives independently: Yes Household members: spouse Housing: House Marital status: service: No Current occupational status: retired Pets and animals: Yes Do you think of yourself as: Straight/Heterosexual Current gender identity: Male Physical Exam Const: COMMON NORMALS: no acute distress GENERAL APPEARANCE: cooperative HENMT: COMMON NORMALS: normocephalic, atraumatic and Normal external nose present HEAD & SCALP: normocephalic and atraumatic FACE & SINUS: normal facial exam and face symmetric NOSE: Normal external nose present Eye: COMMON NORMALS: Equal, round and reactive pupils present and EOMs intact bilaterally PUPIL: Yes Equal, round and reactive pupils present Neck/C-Spine: GENERAL: Yes trachea midline Chest: CHEST: Yes Symmetrical chest wall rise Resp: COMMON NORMALS: normal respiratory effort, No retractions and No use of accessory muscles AUSCULTATION: rhonchi and wheezes Cardio: COMMON NORMALS: regular rate and regular rhythm RATE: regular rate RHYTHM: regular rhythm GI: COMMON NORMALS: Normal to inspection, nondistended, normoactive bowel sounds present Extremity: COMMON NORMALS: no pedal edema Neuro: AKI COMA SCALE: document GCS findings Kindred coma scale eye opening: Spontaneous Aki coma scale verbal response: Orientated Aki coma scale motor response: Obey commands Kindred coma scale total score: 15 SENSORY EXAM: Yes extremities (intact) Psych: COMMON NORMALS: speech normal SPEECH: Yes normal speech Skin: COMMON NORMALS: no rashes or lesions noted GENERAL SKIN EXAM: no rashes or lesions noted Course Vital Signs: Vital signs: Vital Signs Temperature 98.8 F 12/01/24 22:31 Pulse Rate 74 12/01/24 23:56 Respiratory Rate 18 12/01/24 23:56 Blood Pressure 121/61 12/01/24 23:07 Pulse Oximetry 100 12/01/24 23:56 Oxygen Delivery Me thod Nasal Cannula 12/01/24 23:56 Oxygen Flow Rate 3.5 12/01/24 23:56 MDM - SOB/Dyspnea Medical Decision Making Lung sounds are coarse, but he is moving good air at this point. He is afebrile. Vitals are normal. Saturations are normal on his home O2 setting at this point. His white blood cell count is 14, other laboratory is not remarkable. His lactic acid is 0.8. His chest x-ray is negative for infiltrate. With improvement in his symptoms, he will be treated for COPD exacerbation with empiric antibiotics, and a long taper of steroids, as his COPD is quite advanced. He knows to return for any new or worsening symptoms Lab Data 12/01/24 22:42 12/01/24 22:42 Labs/Radiology: Radiology Impressions Chest X-Ray 12/01/24 22:42 IMPRESSION: 1. No visualized acute cardiopulmonary process. 2. Stable chronic findings of COPD. Laboratory Results WBC 14.12 10^3/uL (3.29-11.43) H 12/01/24 22:42 RBC 4.72 10^6/uL (3.85-5.65) 12/01/24 22:42 Hgb 13.40 g/dL (11.27-16.99) 12/01/24 22:42 Hct 45.1 % (37-53) 12/01/24 22:42 MCV 95.6 fl (82-101) 12/01/24 22:42 MCH 28.4 pg (27-33) 12/01/24 22: MCHC 29.7 g/dL (30-55) L 12/01/24 22:42 RDW 12.3 % (12.1-15.1) 12/01/24 22:42 Plt Count 354 10^3/cmm (157-399) 12/01/24 22:42 MPV 9.0 fL (7.4-10.4) 12/01/24 22:42 Neut % (Auto) 81.8 % 12/01/24 22:42 Lymph % (Auto) 8.9 % 12/01/24 22:42 Shawnee % (Auto) 4.5 % 12/01/24 22:42 Eos % (Auto) 1.7 % 12/01/24 22:42 Baso % (Auto) 0.6 % 12/01/24 22: Neut # (Auto) 11.54 10^3/uL (1.8-7.7) H 12/01/24 22: Lymph # (Auto) 1.3 10^3/uL (0.8-4.8) 12/01/24 22:42 Shawnee # (Auto) 0.6 10^3/uL (0.2-0.9) 12/01/24 22: Eos # (Auto) 0.2 10^3/uL (0.0-0.8) 12/01/24 22:42 Baso # (Auto) 0.1 10^3/uL (0.0-0.1) 12/01/24: Nucleated RBC % (auto) 0 % 12/01/24: Nucleated RBCs # 0.0 /100WBC 12/01/24 22:42 Sodium 141 mmol/L (136-145) 12/01/24 22: Potassium 4.8 mmol/L (3.5-5.1) 12/01/24 22:42 Chloride 99 mmol/L (98-107) 12/01/24 22:42 Carbon Dioxide 37 mmol/L (22-29) H 12/01/24 22:42 Anion Gap 9.8 (5-19) 12/01/24 22:42 BUN 13 mg/dL (8-23) 12/01/24 22:42 Creatinine 0.7 mg/dL (0.7-1.2) 12/01/24 22:42 GFR Calculation 112.1 mL/min (90-130) 12/01/24 22:42 Glucose 121 mg/dL (65-115) H 12/01/24 22:42 Calculated Osmolality 293 mOsm/kg (285-295) 12/01/24 22:42 Lactic Acid 0.8 mmol/L (0.5-2.2) 12/01/24 22:42 Calcium 9.2 mg/dL (8.5-10.5) 12/01/24 22:42 Total Bilirubin 0.2 mg/dL (0.15-1.2) 12/01/24 22:42 AST 14 U/L (0-40) 12/01/24 22:42 ALT 16 U/L (0-41) 12/01/24 22:42 Alkaline Phosphatase 86 U/L (40-130) 12/01/24 22:42 NT-Pro-B Natriuret Pep 78 pg/mL (0-125) 12/01/24 22:42 Total Protein 7.0 g/dL (6.6-8.7) 12/01/24 22:42 Albumin 4.0 g/dL (3.5-5.2) 12/01/24 22:42 Globulin 3.0 g/dL (1.3-4.6) 12/01/24 22:42 All radiology interpretation(s) finalized by discharge Discharge Plan Discharge Patient Disposition: Home Clinical Impression: Chronic hypoxic respiratory failure, on home oxygen therapy, Acute exacerbation of chronic obstructive airways disease Condition: Stable Prescriptions: New doxycycline hyclate 100 mg tablet 100 mg PO BID 7 Days Qty: 14 0RF prednisone 10 mg tablet 10 mg PO DIRECTED Qty: 30 0RF Rx Instructions: 4 [id number], 3 BMifq3x, 2 YVqlf2g, 1 BRkoz3e No Action isosorbide mononitrate 30 mg tablet extended release 24 hr 30 mg PO DAILY Qty: 90 3RF albuterol sulfate 90 mcg/actuation HFA aerosol inhaler 2 inh inhalation Q6H PRN (Reason: shortness of breath or wheezing) Qty: 8.5 6RF nitroglycerin 0.4 mg tablet, sublingual 0.4 mg sublingual Q5M PRN (Reason: chest pain) Qty: 25 2RF Rx Instructions: do not exceed 3 doses per episode metoprolol succinate 25 mg tablet extended release 24 hr 12.5 mg PO DAILY Qty: 45 3RF aspirin 81 mg Tablet,Delayed Release (Dr/Ec) 81 mg PO DAILY melatonin 5 mg Tablet 10 mg PO DAILY trazodone 50 mg Tablet 50 mg PO BEDTIME amlodipine 5 mg tablet 5 mg PO DAILY guaifenesin 400 mg Tablet 400 mg PO TID albuterol sulfate 2.5 mg/0.5 mL Solution For Nebulization 5 mg INHALATION QID omeprazole 20 mg Tablet,Delayed Release (Dr/Ec) 20 mg PO BID prednisone 20 mg Tablet 40 mg PO DAILY Qty: 4 0RF Rx Instructions: start on 11/26/24 levofloxacin 750 mg Tablet 750 mg PO DAILY@0600 Qty: 5 0RF Breztri Aerosphere 160-9-4.8 mcg/actuation HFA aerosol inhaler 2 inh inhalation BID Qty: 10.7 1RF Discharge Orders: Discharge ED (Routine); Ordered 12/01/24 Ordered By: Feliz Beck Referrals: Ellie Irene MD [Primary Care Provider, [facility]] - 4-7 days Patient Instructions: COPD (Chronic Obstructive Pulmonary Disease) (ED), Opioid Safety, Pain Management Activity Restrictions/Additional Instructions: Medication as directed. Use your albuterol nebulizer every 4 hours while awake for the first 48 hours, whether you feel you needed or not. You may use it as needed after that. Return for fever greater than 100 despite 2-3 doses of antibiotics, worsening shortness of breath despite treatment, any other concerning symptoms. Follow-up with your doctor. Print Language: Maori Coding Level of Care Code ED Multiple Slide Operator for Oli Moise
[2024-12-01] MEDS: ipratropium-albuterol 3 mL Neb INHALATION (22:50)
[2024-12-01 22:51] VITALS: PULSE 97; RESP 18; O2SAT 96
[2024-12-01 22:51] LABS: Basophils # 0.1 10^3/uL (0.0-0.1); Basophils % 0.6 %; Eosinophils # 0.2 10^3/uL (0.0-0.8); Eosinophils % 1.7 %; Hematocrit 45.1 % (37-53); Lymphocytes # 1.3 10^3/uL (0.8-4.8); Lymphocytes % 8.9 %; Mean Corpuscular HGB Conc 29.7 g/dL (30-55); Mean Corpuscular Hemoglobin 28.4 pg (27-33); Mean Corpuscular Volume 95.6 fl (82-101); Monocytes # 0.6 10^3/uL (0.2-0.9); Monocytes % 4.5 %; Neutrophils # 11.54 10^3/uL (1.8-7.7); Neutrophils % 81.8 %; Nucleated Red Blood Cells % 0 %; Platelet Count 354 10^3/cmm (157-399); Red Blood Count 4.72 10^6/uL (3.85-5.65); Red Cell Distribution Width 12.3 % (12.1-15.1); White Blood Count 14.12 10^3/uL (3.29-11.43)
[2024-12-01 22:54] VITALS: PULSE 80; RESP 18; O2SAT 97
[2024-12-01 23:06] LABS: Lactic Sepsis W/Reflex 0.8 mmol/L (0.5-2.2)
[2024-12-01 23:07] VITALS: BP 121/61; PULSE 85; RESP 18; O2SAT 98
[2024-12-01 23:17] LABS: Alanine Aminotransferase 16 U/L (0-41); Alkaline Phosphatase 86 U/L (40-130); Anion Gap 9.8 (5-19); Aspartate Amino Transferase 14 U/L (0-40); Blood Urea Nitrogen 13 mg/dL (8-23); Calcium 9.2 mg/dL (8.5-10.5); Carbon Dioxide 37 mmol/L (22-29); Chloride 99 mmol/L (98-107); Creatinine Clr Calc Pharmacy 71.6155; Glomerular Filtration Rate 112.1 mL/min (90-130); Glucose 121 mg/dL (65-115); NT Pro B Type Natriuretic Pept 78 pg/mL (0-125); Osmolality Calculated 293 mOsm/kg (285-295); Potassium 4.8 mmol/L (3.5-5.1); Sodium 141 mmol/L (136-145); Total Bilirubin 0.2 mg/dL (0.15-1.2)
[2024-12-01 23:56] VITALS: PULSE 74; RESP 18; O2SAT 100
[2024-12-02 03:24] VITALS: BP 120/68; PULSE 71; RESP 16; O2SAT 98
== END 2024-12-02 03:25 | disposition home or self-care (01) ==
PROVIDERS: Emergency Provider Emergency Medicine; PCP Family Medicine
DX: J44.1 Chronic obstructive pulmonary disease with (acute) exacerbation (principal); J96.11 Chronic respiratory failure with hypoxia; Z99.81 Dependence on supplemental oxygen; Z79.82 Long term (current) use of aspirin; F17.210 Nicotine dependence, cigarettes, uncomplicated; I10 Essential (primary) hypertension
CPT/HCPCS: 36415; 71045; 80053; 83605; 83880; 85025; 94640; 99285; J9999

== ENCOUNTER 2025-01-26 18:43 | Observation (INO) | payer OTHER, MEDICARE, MEDICAID, SELFPAY ==
--- OUTSIDE RECORDS SUMMARY | 2016-08-25 08:00 | XMS_ITS | Continuity of Care Document ---
Author Organization [facility] Address [address] [place] [address] Phone Care Team Providers Care Negative Cleaner Name Role Phone Services, Substance Abuse Unavailable Damian Doll Unavailable Unavailable Procedures Procedure Date AOD Screening; Intake Advance Directives Directive Yes / No Effective Date File Name No Information Encounters Encounter Description Practice Location Reason(s) For Visit Diagnoses Date Provider Providers Copied on Encounter [facility], [address] [place] [address], [id number], tel:[phone] JST AOD No Information Services Substance Abuse. [address] [place] [address], [address]. tel:[phone] Consulting Provider: Damian Heranndez, [address] [place] [address], [address]. Family History Family Member Type Diagnosis Age At Onset No Information Payers Payer name Insurance type Covered libertarian ID Authoriza tion(s) A[facility] Drug MediCal 11 [id number] Social History Type Description Quantity Date Captured [...]
--- OUTSIDE RECORDS SUMMARY | 2018-10-28 10:26 | XMS_ITS | Continuity of Care Document ---
Author Organization [facility] Address [address] [place] [address] Phone Care Team Providers Care Material Clerk Name Role Phone Abraham Bower MD Unavailable [...] [facility], [address], [place], [address], [place] tel:[phone] [facility] No Information Sathish Rosario. [address], [place], [id number], [place]. tel:[phone] [facility], [address], [place], [address], [place] tel:[phone] [facility] Headaches (chief complaint) New daily persistent headache Sathish Rosario. [address], [place], [id number], [place]. tel:[phone] [facility], [address], [place], [address], [place] tel:[phone] [facility] Headaches (chief complaint)A bnormal CT (chief complaint) New daily persistent headacheAbnormal brain scan Sathish Rosario. [address], [place], [id number], [place]. tel:[phone] Family History Family Member Type Diagnosis Age At Onset Father Problem (finding) Multiple medic al problems (Cause Of ) Mother Problem (finding) Unknown cause (Cause Of ) Payers Payer name Insurance type Covered constitution party ID Tiffambika stephanielilian(s) [facility] () [id number] Medicaid MC [id number] Social History Type Description Quantity Date Captured [...] he had his ESR done at the [facility] in [place], [place] but I do not have the [...]
--- OUTSIDE RECORDS SUMMARY | 2024-12-10 08:30 | XMS_ITS ---
Author Organization [facility] Address [address] [place] [address] Care Team Providers Care Corsage Maker Name Role Phone Judith Lieberman APRN Primary Care Provider Unav ailAngel Luis Alcocer Unavailable [phone] [place], [place] Unavailable Unavailable Encounters Encounter Location Date Provider Diagnosis [facility] [address] [place] [address] [place] [address] 12/10/2024 Angel Luis Sebastian Plan Of Treatment Next Appt Details Provider Name:Angel Luis Ibarraoscar, 07/17/2025 11:40:00 AM, [address] [place] [address] [place] [place], [address], Progress Notes * CHI KEYS ADOB:1955 (69 yo M)Acc No.[id number]:12/10/2024 Progress Notes Patient: CHI MCGINNIS Provider: Jalil Sebastian MD :1955 A ge:69 Y S ex:Male Date:12/10/2024 Address:[address] [place], [place] [phone] Pcp:Judith Lieberman APRN Subjective: * Chief Complaints: * * Medical History: Objective: * Vitals: Assessment: Plan: * Treatment: Forms: * Billing Information: * Visit Code: * Procedure Codes: Care Plan Details* * Electronic signature of Evelyn Sebastian MD on 01/26/2025 at 07:14 PM CDT Sign off status: Pending * Provider: Jalil Sebastian MD Date: 0 12/10/2024 Generated for Gabrielle mcclendon/Jourdan/Deonna on: 0 01/26/2025 07:14 PM CDT
--- OUTSIDE RECORDS SUMMARY | 2024-12-17 09:30 | XMS_ITS ---
Author Organization [facility] Address [address] [place] [address] Care Team Providers Care Fleecer Name Role Phone Judith Lieberman APRN Primary Care Provider Angel Luis Shields Unavailable [phone] [place], [place] Unavailable Unavailable REASON FOR VISIT Shortness of breath Encounters Encounter Location Date Provider Diagnosis [facility] [address] [place] [address] [place] [address] 12/17/2024 Angel Luis Jaz Solitary pulmonary nodule [...] ago. Next Appt Details Provider Name:Angel Luis Sebastian, 07/17/2025 11:40:00 AM, [address] [place] [address] [place], [address], Progress Notes * CHI KEYS ADOB:1955 (69 yo M)Acc No.[id number]:12/17/2024 Progress Notes Patient: CHI MCGINNIS Provider: Jalil Sebastian MD :1955 A ge:69 Y S ex:Male Date:12/17/2024 Address:[address] [place], [place] [phone] Pcp:Judith Lieberman APRN Subjective: * Chief Complaints: * 1 . Shortness of breath. * HPI: P jessica Note: The patient is a 68-year-old male [...] atigue. R espiratory s hortness of breath. * Medical History: Objective: * Vitals: * Examination: G eneral Examination: GENERAL APPEARANCE: [...] by GOLD classification Notes: -Continue Albuterol Neb as needed. -Continue Breztri [...] two months ago. 5. O thers Clinical Notes:I, Alexia Hobbs, am scribing for, and in the presence of Dr. Angel Luis Sebastian. I, Dr. Angel Luis Sebastian, personally performed the services described in this documentation, as scribed by Alexia Hobbs in my presence, and it is both accurate and complete. Forms: * Billing Information: * Visit Code: * Procedure Codes: Care Plan Details* * Electronic signature of Evelyn Sebastian MD on 01/26/2025 at 07:14 PM CDT Sign off status: Pending * Provider: Jalil Sebastian MD Date: 12/17/2024 Generated for Gabrielle mcclendon/Jourdan/Danniitting on: 01/26/2025 07:14 PM CDT History and Physical Notes * HPI (History [...]
[2025-01-26] VITALS (9 sets, daily range): BP systolic 104–134; BP diastolic 60–78; PULSE 69–82; RESP 16–24; TEMP 36.5–36.6; O2SAT 94–99; BMI 18.0
--- OUTSIDE RECORDS SUMMARY | 2025-01-26 19:14 | XMS_ITS | Patient Health Record ---
Author Organization [facility] Address [address] [place] [address] Care Team Providers Care Button Bradder Name Role Phone Judith Lieberman APRN Primary Care Provider Unav ailable Angel Luis Sebastian Unavailable [phone] [place] [place] Unavailable Unavailable Allergies No Known Allergies Results Component Value Reference Range Notes zzzPET Skull Base to Mid Thi Pl--[id number] Reviewed date:08/14/2024 01:05:01 PM Interpretation: Performing Lab: Notes/Report: [id number] zzzPET Skull Base to Mid Thi gh Pl--[id number] Reviewed date:08/14/2024 03:11:27 PM Interpretation: Performing Lab: Notes/Report: See Below For Report PET study was performed at [facility]. Read See Below For Report Schedule Confirmation Reviewed date:01/15/2025 11:59:07 AM Interpretation: Performing Lab: Notes/Report: CT Chest w/o Contrast Schedule Confirmation Reviewed date:07/03/2024 02:45:51 PM Interpretation: Performing Lab: Notes/Report: CT Chest w/o Contrast Schedule Confirmation Reviewed date:01/14/2025 03:29:20 PM Interpretation: Performing Lab: Notes/Report: CT Chest w/o Contrast XR Outside CD Reviewed date:05/21/2024 03:58:57 PM Interpretation: Performing Lab: Notes/Report: [id number] CT Chest w/o Contrast diagno stic-[id number] Reviewed date:01/16/2025 03:09:53 PM Interpretation: Performing Lab: Notes/Report: See Below For Report CT Chest w/o Contrast Diagnosis Description: Solitary pulmonary nodule Read See Below For Report CT Chest w/o Contrast diagno stic-75165 Reviewed date:01/15/2025 11:59:07 AM Interpretation: Performing Lab: Notes/Report: [id number]=iSite Schedule Confirmation Reviewed date:07/03/2024 02:45:51 PM Interpretation: Performing Lab: Notes/Report: CT Chest w/o Contrast CT Chest w/o Contrast diagno stic-83044 Reviewed date:07/03/2024 02:45:51 PM Interpretation: Performing Lab: Notes/Report: See Below For Report Exam: CT Chest w/o Contrast Diagnosis Description: Abnormal findings on diagnostic imaging of other specified body structures Read See Below For Report CT Chest w/o Contrast diagno stic-[id number] Reviewed date:07/03/2024 02:45:51 PM Interpretation: Performing Lab: Notes/Report: [id number] Reason For Referral Reason [facility]: Lung Mass- Sched uled Diagnosis 1 Abnormal findings on diagnostic imaging of other specified body structures (R93.89) Referring Provider First Name Nehawka Robert ff Referring Provider Last Name [place] Referring Provider Speciality [facility] Referred Organization [facility] Referred Provider Angel Luis Sebastian Referred Address [address] [place] [address] [address],[place], [place],[address], Referred Provider Specialty Pulmonary Di seases General Notes Nohemy Diehl 024 01:10:32 PM >Left Message with [facility] asking for [facility] records, and records, Nohemy Diehl 05/16/2024 03:10:26 PM >[facility] requested Imaging of disc being sent., Nohemy Diehl 05/16/2024 03:18:05 PM >[facility] is sending ER visit notes. They do not have any records there showing that he was seeing Insurance Account Specialist in . Will need to send fax to [facility] asking for records, Nohemy Diehl 05/17/2024 04:03:28 PM >05/17: 1 week Per Fazal Sebastian Marie 05/17/2024 04:30:47 PM >Disc Received, Nohemy Diehl 05/17/2024 04:32:02 PM >10/17: Left Message, Nohemy Diehl 05/17/2024 04:43:35 PM >Need PFT Report, FazalNohemy 05/21/2024 02:47:51 PM >05/21: Left Message, Maria Isabel Lopez 05/21/2024 03:05:40 PM >Scheduled 05/30/2024 @ 2:30 PM Referral Priority Routine Reason Solitary Pulm Nodule : [facility] - Scheduled Diagnosis 1 Solitary pulmonary n odule (R91.1) Referring Provider First Name Nehawka Robert ff Referring Provider Last Name [place] Referring Provider Speciality [facility] Referred Organization [facility] Referred Provider Angel Luis Sebastian Referred Address [address] [place] [address] [address],[place], [place],[address], Referred Provider Specialty Pulmonary Ramya crockett Referral Priority Routine Medications Medication SIG (Take, Route, Frequency, Duration) Notes Start Date End Date Status Memantine HCl 5 MG 1 tablet Orally Once a day Active guaiFENesin DM Activ e predniSONE 10 MG 1 tablet Orally BID Active Omeprazole 40 MG 1 capsule 1/2 to 1 hour before morning meal Orally Once a day Active Azithromycin 250 MG as directed Orally Once a day Not-Taking traZODone HCl 150 MG 1 tablet at bedtime Orally Once a day Active DuoNeb Not-Taking Cyanocobalamin 1000 MCG 1 tablet Orally Once a day Not-Taking amLODIPine Besylate 5 MG 1 tablet Orally Once a day Active Albuterol Sulfate HFA 108 (90 Base) MCG/ACT 1 puff as needed Inhalation every 4 hrs Active Breztri Aerosphere 160-9-4.8 MCG/ACT 2 puffs Inhalation Twice a day Active Aspirin 81 81 MG 1 tablet Orally Once a day Active Roflumilast 500 MCG 1 tablet Orally Once a day for 30 days 01/15/2025 01/10/2026 Active Dextrose 24 gm/31 gm squeeze tube Active Magnesium Citrate No t-Taking Cholecalciferol 25 MCG (1000 UT) 1 capsule Orally Once a day Active Fluticasone Propionate 50 MCG/ACT 1 spray in each nostril Nasally Twice a day Active Topiramate 50 MG 2 Tablets Orally Once a day Not-Taking Docusate Calcium 240 MG 1 capsule as needed Orally Once a day Active Nicotine Polacrilex 4 MG 1 lozenge as needed Mouth/Throat every 8 hrs Not-Taking Social History Tobacco Use: Social History Observation Description Date Details (start date - stop date) Former Smoker NA - NA Tobacco Control (Standard) Question Answer Notes Tobacco use: Former smoker How long has it been since you last smoked? 6-12 months Problems Problem Type SNOMED Code ICD Code Onset Dates Problem Status W/U Status Risk Notes Problem 19081214699471762 Nicotine dependence, cigarettes, uncomplicated (F17.210) Active confirmed Problem 07376401241402499 Nicotine dependence, cigarettes, in remission (F17.211) Active confirmed Problem 621788384 Solitary pulmonary nodule (R91.1) Active confirmed Problem 41623773299157022 Abnormal chest CT (R93.89) Active confirmed Problem 463851815 Stage 3 severe COPD by GOLD classification (J44.9) Active confirmed Problem 322784204 Chronic hypoxic respiratory failure (J96.11) Active confirmed Vital Signs Heart Rate 93 /min 01/15/2025 Temperature 98 degrees Fahrenheit 01/15/2025 Respiratory Rate 20 /min 01/15/2025 Blood pressure diastolic 61 mm Hg 01/15/2025 Oximetry 91 % 01/15/2025 Height-cm 154.94 cm 01/15/2025 Weight-kg 47.8 kg 01/15/2025 Height 61 in 01/15/2025 Blood pressure systolic 104 mm Hg 01/15/2025 Weight 105.38 lbs 01/15/2025 BMI 19.91 kg/m2 01/15/2025 Procedures Procedure Date Ordered Date Performed Result Body Sit e PFT with FRC: (NO TGV) 07/03/2024 07/03/2024 N/A Encounters Encounter Location Date Provider Diagnosis [facility] [address] [place] [address] [place] [address] 05/17/2024 [facility] [address] [place] [address] [place] [address] 05/29/2024 [facility] [address] [place] [address] [place] [address] 06/22/2024 [facility] [address] [place] [address] [place] [address] 06/22/2024 [facility] [address] [place] [address] [place] [address] 06/27/2024 [facility] [address] [place] [address] 07/02/2024 [facility] [address] [place] [address] 07/03/2024 [facility] [address] [place] [address] [place] [address] 07/09/2024 [facility] [address] [place] [address] 07/16/2024 [facility] [address] [place] [address] [place] [address] 07/27/2024 [facility] [address] [place] [address] [place] [address] 07/30/2024 [facility] [place] [address] 08/15/2024 [facility] [address] [place] [address] [place] [address] 08/20/2024 [facility] [address] [place] [address] 08/28/2024 [facility] [address] [place] [address] [place] [address] 09/03/2024 [facility] [place] [address] 11/22/2024 [facility] [address] [place] [address] [place] [address] 12/05/2024 [facility] [address] [place] [address] 01/08/2025 [facility] [address] [place] [address] [place] [address] 07/03/2024 Angel Luis Sebastian Solitary pulmonary nodule R91.1 ; Stage 3 severe COPD by GOLD classification J44.9 ; Chronic hypoxic respiratory failure J96.11 ; Nicotine dependence, cigarettes, uncomplicated F17.210 and Encounter for smoking cessation counseling Z71.6 [facility] [address] [place] [address] 09/10/2024 Angel Luis Sebastian Solitary pulmonary nodule R91.1 ; Stage 3 severe COPD by GOLD classification J44.9 ; Chronic hypoxic respiratory failure J96.11 and Nicotine dependence, cigarettes, in remission F17.211 [facility] [address] [place] [address] 01/15/2025 Angel Luis Sebastian Solitary pulmonary nodule R91.1 ; Stage 3 severe COPD by GOLD classification J44.9 ; Chronic hypoxic respiratory failure J96.11 and Nicotine dependence, cigarettes, in remission F17.211 [facility] [address] [place] [address] 06/18/2024 Angel Luis Sebastian Abnormal chest CT R93.89 ; Shortness of breath R06.02 ; Chronic hypoxic respiratory failure J96.11 ; Nicotine dependence, cigarettes, uncomplicated F17.210 and Encounter for smoking cessation counseling Z71.6 [facility] [address] [place] [address] 07/03/2024 Angel Luis Sebastian Shortness of breath R06.02 Assessments Encounter Date Diagnosis (ICD Code) Assessment Notes Treatment Notes Treatment Clinical Notes Section Notes 06/18/2024 Shortness of breath (ICD-10 - R06.02) Secondary to COPD. He will need PFT. For now continue albuterol and Breztri. I told him to discontinue Combivent. 06/18/[address] (ICD-10 - R93.89) Solitary pulmonary nodule that is groundglass in the right upper lobe noted in November of this year. Repeat chest CT now. 07/03/2024 Shortness of breath (ICD-10 - R06.02) 07/03/2024 Solitary pulmonary nodule (ICD-10 - R91.1) May be slightly increased in size. I have discussed treatment options of robotic navigational bronchoscopy vs PET/CT imaging. -Patient has opted for PET/CT imaging. 07/03/2024 Stage 3 severe COPD by GOLD classification (ICD-10 - J44.9) -Continue Albuterol Neb as needed. -Continue Breztri -Little benefit from Trelegy. History of Combivent. 09/10/2024 Solitary pulmonary nodule (ICD-10 - R91.1) Stable size nodule. Repeat chest CT in 3 months. 09/10/2024 Stage 3 severe COPD by GOLD classification (ICD-10 - J44.9) -Continue Albuterol Neb as needed. -Continue Breztri -Little benefit from Trelegy. History of Combivent. 01/15/2025 Solitary pulmonary nodule (ICD-10 - R91.1) -Stable size nodule. Repeat chest CT in 6 months. 01/15/2025 Stage 3 severe COPD by GOLD classification (ICD-10 - J44.9) -Continue Albuterol Neb as needed. -Continue Breztri -Little benefit from Trelegy. History of Combivent. -I will treat him as exacerbation with prednisone and doxycycline -Given frequent exacerbations I would find it reasonable to start him on Daliresp. I will send a prescription. 09/10/2024 Chronic hypoxic respiratory failure (ICD-10 - J96.11) - continue oxygen use to maintain a saturation between 88-92% 07/03/2024 Chronic hypoxic respiratory failure (ICD-10 - J96.11) - continue oxygen use to maintain a saturation between 88-92% 06/18/2024 Chronic hypoxic respiratory failure (ICD-10 - J96.11) - continue oxygen use to maintain a saturation between 88-92% 06/18/2024 Nicotine dependence, cigarettes, uncomplicated (ICD-10 - F17.210) Smoked 3 packs a day for 40 years before cutting down to 15 cigarettes a day in the last 5 years. 07/03/2024 Nicotine dependence, cigarettes, uncomplicated (ICD-10 - F17.210) Smoked 3 packs a day for 40 years before cutting down to half a pack a day in the last 5 years. 09/10/2024 Nicotine dependence, cigarettes, in remission (ICD-10 - F17.211) Smoked 3 packs a day for 40 years before cutting down to half a pack a day in the last 5 years. He officially quit smoking two months ago. 01/15/2025 Chronic hypoxic respiratory failure (ICD-10 - J96.11) -Continue oxygen use to maintain a saturation between 88-92% 01/15/2025 Nicotine dependence, cigarettes, in remission (ICD-10 - F17.211) -Smoked 3 packs a day for 40 years before cutting down to half a pack a day in the last 5 years. He officially quit smoking in the beginning of 2024. 07/03/2024 Encounter for smoking cessation counseling (ICD-10 - Z71.6) 06/18/2024 Encounter for smoking cessation counseling (ICD-10 - Z71.6) 06/05/2024 Other Antonieta, Alexia Hobbs am scribing for, and in the presence of Dr. Angel Luis Sebastian. I, Dr. Angel Luis Sebastian, personally performed the services described in this documentation , as scribed by Alexia Hobbs in my presence, and it is both accurate and complete. 09/03/2024 Other Antonieta, Alexia Hobbs am scribing for, and in the presence of Dr. Angel Luis Sebastian. I, Dr. Angel Luis Sebastian, personally performed the services described in this documentation , as scribed by Alexia Hobbs in my presence, and it is both accurate and complete. 12/17/2024 Other Antonieta, Alexia Hobbs am scribing for, and in the presence of Dr. Angel Luis Sebastian. I, Dr. Angel Luis Sebastian, personally performed the services described in this documentation , as scribed by Alexia Hobbs in my presence, and it is both accurate and complete. 06/18/2024 Other Antonieta, Alexia Hobbs am scribing for, and in the presence of Dr. Angel Luis Sebastian. I, Dr. Angel Luis Sebastian, personally performed the services described in this documentation , as scribed by Alexia Hobbs in my presence, and it is both accurate and complete. 07/03/2024 Other Antonieta, Alexia Hobbs am scribing for, and in the presence of Dr. Angel Luis Sebastian. I, Dr. Angel Luis Sebastian, personally performed the services described in this documentation , as scribed by Alexia Hobbs in my presence, and it is both accurate and complete. 09/10/2024 Other Antonieta, Alexia Hobbs am scribing for, and in the presence of Dr. Angel Luis Sebastian. I, Dr. Angel Luis Sebastian, personally performed the services described in this documentation , as scribed by Alexia Hobbs in my presence, and it is both accurate and complete. 01/15/2025 Other I, Alexia Hobbs, am scribing for, and in the presence of Dr. Angel Luis Sebastian. I, Dr. Angel Luis Sebastian, personally performed the services described in this documentation , as scribed by Alexia Hobbs in my presence, and it is both accurate and complete. Plan Of Treatment Pending Test Test Name Order Date PET CT Skull Base to Mid Thigh ([facility]) 07/03/2024 Next Appt Details Provider Name:Angel Luis Sebastian, 07/17/2025 11:40:00 AM, [address] [place] [address] [address], [place], [address], Insurance Providers Payer Name Payer Address Payer Phone Subscriber Number Group Number Insured Name Patient Relationship to Insured Coverage Start Date Coverage End Date [employer] [address] [place] [phone] [id number] [employer] Self - patient is the insured Medical (General) History Medical History History ICD Code Measles,Chicken Pox Pneumonioa Arthritis Venereal Disease Migraine Headaches HTN Asthma Stroke Surgical History Surgery Date(Month/Year) Appendectomy Fluid pocket cut off back Hospitalization History Reason Date(Month/Year) Multiple
--- OUTSIDE RECORDS SUMMARY | 2025-01-26 19:15 | XMS_ITS | Clinical Summary ---
Author Organization [facility] Address [address] [facility] [address] [place] [address] Phone Care Team Providers Care Catering Sales Manager Name Role Phone Ellie Walker MD Primary Care Provider [phone] Allergies No known active allergies Medications aspirin (ECOTRIN EC) 81 mg Tablet, Delayed Release (E.C.) Take 81 mg by mouth daily. Active ipratropium-albu teroL (DUONEB) 0.5 mg-3 mg(2.5 mg base)/3 mL Solution for Nebulization Take 3 mL by inhalation 4 times daily. Active albuterol sulfate HFA 90 mcg/actuation aerosol inhaler Take 1 Puff by inhalation every 6 hours as needed for Shortness of Breath. Active fluticasone propionate (FLONASE) 50 mcg/spray [facility], Suspension nasal inhaler Administer 1 [facility] in each nostril 2 times daily. Active guaiFENesin (HUMIBID) 400 mg Tablet Take 400 mg by mouth 3 times daily. Active traZODone (DESYREL) 100 mg tablet Take 100 mg by mouth daily at bedtime. Active omeprazole (PriLOSEC) 20 mg Capsule, Delayed Release(E.C.) Take 20 mg by mouth 2 times daily. Active isosorbide mononitrate (IMDUR) 30 mg Extended Release 24 hour tablet Take 30 mg by mouth daily in the morning. Active cholecalciferol, Vitamin D3, (VITAMIN D3) 25 mcg (1,000 unit) Capsule Take 1 Capsule by mouth daily. Active amLODIPine (NORVASC) 5 mg tablet Take 5 mg by mouth daily. Active predniSONE (DELTASONE) 10 mg tablet Take 10 mg by mouth see administration instructions. Prednisone taper Active docusate sodium (COLACE) 100 mg capsule Take 100 mg by mouth 2 times daily as needed for Constipation. Active metoprolol succinate (TOPROL XL) 25 mg Extended Release 24 hour tablet Take 12.5 mg by mouth daily. Active melatonin 5 mg Tablet Take 10 mg by mouth nightly as needed. Active Breztri Aerosphere 160 mcg-9mcg-4.8mcg/ actuation HFA aerosol inhaler Take 2 Puffs by inhalation 2 times daily. Active Active Problems Problem Noted Date Diagnosed Date Low income 12/08/2024 History of pulmonary embolism 12/08/2024 Overview (12/08/2024): Apr 25, 2024 Entered By: ELLIE WALKER Comment: off blood thinner blood clot resolved [facility] History of colonic polyps 12/08/2024 Overview (12/08/2024): Jun 15, 2024 Entered By: ELLIE WALKER Comment: colonoscopy 06/2024 = needs gi specialsit forremovalof large polyp win 3 months Gastroesophageal reflux disease 12/08/2024 Heavy tobacco smoker 12/08/2024 Overview (12/08/2024): Jun 11, 2021 Entered By: ELLIE WALKER Comment: hypoxemia Jul 22, 2023 Entered By: ELLIE WALKER Comment: hx 1.5 to 2 ppd currently down to1/ 4 to 1/2 ppd Asthma without status asthmaticus 12/08/2024 Adjustment disorder with depressed mood 12/09/19 25 Vitamin D3 deficiency 12/08/2024 Viral hepatitis C 12/08/2024 Solitary pulmonary nodule 12/08/2024 Memory impairment 12/08/2024 HTN (hypertension), benign 12/04/2024 Multifocal pneumonia 12/04/2024 Severe chronic obstructive pulmonary disease Overview (12/08/2024): Feb 02, 2021 Entered By: ELLIE WALKER Comment: tx in ed for exacerbation copd, Acute on chronic respiratory failure with hypoxi a 11/15/2023 Tobacco dependence 11/15/2023 Underweight 11/15/2023 Elevated brain natriuretic peptide (BNP) level 0 11/15/2023 Encounters Date Type Department Care Team Description 01/08/2025 External Device Data [facility]STRACTION Provider, Abstract 01/08/2025 External Device Data [facility] Provider, Abstract 01/01/2025 External Device Data [facility] Provider, Abstract 12/11/2024 External Device Data [facility] Provider, Abstract 12/11/2024 External Device Data [facility] Provider, Abstract 12/11/2024 External Device Data [facility] Provider, Abstract 12/10/2024 Telephone [facility] Utilization Management [address] [facility] [address] [place] [phone] Dhara Melgoza RN Follow Up (Graham Sneed, this is Dhara from [facility]. I was following up with you to see how you were feeling? Pretty good. /Do you have a PCP f/u appt? Not yet. /Do you have any questions regarding your d/c instructions and/or d/c medications? Nope. /If you have any questions or concerns, please give us a call. /) 12/04/2024 2:02 PM CDT - 12/08/2024 4:17 PM CDT Hospital Encounter [facility] [address] [address] [place] [phone] Sarah Beth Segura MD Multifocal pneumonia Discharge Disposition: Home or Self Care 12/04/2024 External Device Data [facility]STRACTION Provider, Abstract 12/04/2024 Travel 11/13/2024 External Device Data [facility] Provider, Abstract 11/13/2024 External Device Data [facility] Provider, Abstract 10/30/2024 External Device Data [facility] Provider, Abstract from Last 3 Months Immunizations Immunization Administration Dates Next Due (ADACEL/BOOSTRIX)(10 YR UP) TDAP VACCINE, 0.5ML, IM 12/06/2022,07/22/2017,12/22/2007 (PNEUMOVAX 23)(50 YRS UP) PN EUMOCOCCAL POLYSACCHARIDE (PPV23) 0.5 ML, IM 12/11/2018,04/25/2017,12/22/2007 (PREVNAR 20)(6 WKS UP) PNEUM OCOCCAL CONJUGATE VACCINE 20-VALENT (PCV20), POLYSACCHARIDE EYE064 CONJUGATE, ADJUVANT 0.5 ML (PF) IM 01/26/2024 Influenza, Unspecified Formulation 04/25/2017,,05/01/2016 Td(adult) Unspecified Formulation 12/06/2022 Family History Medical History Relation Name Comments Hypertension Brother 1 Cancer Brother 3 Liver Disease Father Other Mother Relation Name Status Comments Brother 1 Alive Brother 2 Alive Brother 3 Alive Brother 4 Alive Father Mother Sister 1 Sister 2 Alive Social History Tobacco Use Types Packs/Day Years Used Date Smoking Tobacco: Former Cigarettes 0.5 46 1 979 - 07/23/2024 Smokeless Tobacco: Never Tobacco Cessation:Counseling Given: Not Answered Comments:Smoles about 1/2 ppd. 1978 to 1989 was heavy smoker Alcohol Use Standard Drinks/Week Comments Not Currently 0 (1 standard drink = 0.6 oz pure alcohol) heavy drinking in distant past Feeling Safe Answer Date Recorded Are you in a relationship wi th someone who hurts you emotionally and/or physically? No 12/04/2024 Food Insecurity Answer Date Recorded Patient needs follow up regardin 12/04/2024 Transportation Needs Answer Date Record ed Patient needs follow up regardin 12/04/2024 Housing Stability Answer Date Recorded Social/Environmental Concerns No concerns Utility Needs Answer Date Recorded Patient needs follow up regardin 12/04/2024 Education Answer Date Recorded What is the highest level of school you have completed or the highest degree you have received? 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 Gender Identity Not on file Sexual Orientation Not on file Last Filed Vital Signs Vital Sign Reading Time Taken Comments Blood Pressure 126/69 12/08/2024 9:30 AM CDT Pulse 78 12/08/2024 12:00 PM CDT Temperature 37 C (98.6 F) 12/08/2024 9:30 AM CDT Respiratory Rate 20 12/08/2024 3:44 PM CDT Oxygen Saturation 96% 12/08/2024 3:44 PM CDT Inhaled Oxygen Concentration - - Weight 47.7 kg (105 lb 1.6 oz) 12/04/2024 2:03 P M CDT Height 162.6 cm (5' 4 ) 12/04/2024 2:03 PM CDT Body Mass Index 18.04 12/04/2024 2:03 PM CDT Plan of Treatment Health Maintenance Due Date Last Done Comments COLORECTAL SCREENING 2001 Colorectal Cancer Screening 2001 FIT-DNA Q 3 years 2001 FIT/FOBT Q 1 year 2001 Flex Sig/CT Colonography Q 5 years 2001 Lung Cancer Screening 2006 ZOSTER VACCINE (1 of 2) 2006 RSV VACCINE (60+ or ) (1 - Risk 60-74 years 1-dose series) 2016 Abdominal Aortic Aneurysm (A AA) Screening 2021 INFLUENZA VACCINE (#1) 2024 DTAP/TDAP/TD VACCINES (5 - T d or Tdap) 12/06/2032 12/06/2022, 12/06/2022, 07/22/2017, Additional history exists PNEUMOCOCCAL VACCINE 50+ YEARS Completed 0 01/26/2024, 12/11/2018, 04/25/2017, Additional history exists Procedures Procedure Name Priority Date/Time Associated Diagnosis Comments BASIC METABOLIC PANEL Routine 12/08/2024 8:16 AM CDT CBC WITH DIFFERENTIAL Routine 12/08/2024 8:16 AM CDT COMPREHENSIVE METABOLIC PANEL Routine 12/06/2024 8:15 AM CDT CBC WITH DIFFERENTIAL Routine 12/06/2024 8:15 AM CDT RT ASSESS AND TREAT Routine 12/05/2024 2 :38 AM CDT URINALYSIS W/REFLEX MICROSCOPIC Stat 12/04/2024 9:20 PM CDT TROPONIN 2 HR, 5TH GEN Timed Study 12/04/2024 3:55 PM CDT XR CHEST PA OR AP 1 VW Stat 12/04/2024 3:34 PM CDT EKG 12-LEAD Stat 12/04/2024 2:13 PM CDT TROPONIN BASELINE, 5TH GEN Stat 12/04/2024 2:02 PM CDT MAGNESIUM LEVEL Stat 12/04/2024 2:02 PM CDT C-REACTIVE PROTEIN Stat 12/04/2024 2: 02 PM CDT LACTIC ACID Stat 12/04/2024 2:02 PM CDT BRAIN NATRIURETIC PEPTIDE, BNP OR PROBNP Stat 12/04/2024 2:02 PM CDT COMPREHENSIVE METABOLIC PANEL Stat 12/04/2024 2:02 PM CDT D-DIMER Stat 12/04/2024 2:02 PM CDT SEDIMENTATION RATE Stat 12/04/2024 2: 02 PM CDT CBC WITH DIFFERENTIAL Stat 12/04/2024 2:02 PM CDT from Last 3 Months Results * (ABNORMAL) CBC WITH DIFFERENTIAL (12/08/2024 8:16 AM CDT) Only the most recent of3 resultswithin the time period is included. WBC 11.9(H) 4.2 - 9.1 K/uL 12/08/2024 8:23 AM [facility] RBC 4.51(L) 4.63 - 6.08 M/uL 12/08/2024 8:23 AM [facility] HEMOGLOBIN 13.0(L) 13.7 - 17.5 g/dL 12/08/2024 8:23 AM [facility] HEMATOCRIT 42.1 40.1 - 51.0 % 12/08/2024 8:23 AM [facility] MCV 93.3(H) 79.0 - 92.2 fL 12/08/2024 8:23 AM [facility] MCH 28.8 25.7 - 32.2 pg 12/08/2024 8:23 AM [facility] MCHC 30.9(L) 32.3 - 36.5 g/dL 12/08/2024 8:23 AM [facility] RDW 12.7 11.0 - 14.5 % 12/08/2024 8:23 AM [facility] RDW-STDEV 43.5 36.9 - 56.9 fL 12/08/2024 8:23 AM [facility] PLATELETS 365 130 - 400 K/uL 12/08/2024 8:23 AM [facility] MPV 9.2(L) 10.0 - 14.8 fL 12/08/2024 8:23 AM [facility] NEUTROPHILS 73(H) 34 - 68 % 12/08/2024 8:23 AM [facility] LYMPHOCYTES 17(L) 22 - 53 % 12/08/2024 8:23 AM [facility] MONOCYTES 8 5 - 12 % 12/08/2024 8:23 AM [facility] EOSINOPHILS 1 1 - 7 % 12/08/2024 8:23 AM [facility] BASOPHILS 0 0 - 1 % 12/08/2024 8:23 AM [facility] IMMATURE GRANULOCYTES 1 % 12/08/2024 8:23 AM [facility] NEUTROPHIL ABSOLUTE 8.66(H) 1.78 - 5.38 K/uL 12/08/2024 8:23 AM [facility] LYMPHOCYTE ABSOLUTE 2.01 1.20 - 3.40 K/uL 12/08/2024 8:23 AM [facility] MONOCYTE ABSOLUTE 1.00(H) 0.30 - 0.82 K/uL 12/08/2024 8:23 AM [facility] EOSINOPHIL ABSOLUTE 0.12 0.04 - 0.54 K/uL 12/08/2024 8:23 AM [facility] BASOPHILS ABSOLUTE 0.02 0.01 - 0.08 K/uL 12/08/2024 8:23 AM [facility] IMMATURE GRANULOCYTES ABSOLUTE 0.13 K/uL 12/08/2024 8:23 AM [facility] Blood Venipuncture / Unknown 12/08/2024 8:16 AM CDT 12/08/2024 8:19 AM CDT us Jase Bautista DO HEMATOLOGY ORDERABLES Final R esult [facility] CLIA # [id number] [address] [place] [id number] * (ABNORMAL) BASIC METABOLIC PANEL (12/08/2024 8:16 AM CDT) SODIUM 140 136 - 145 mmol/L 12/08/2024 8:37 AM [facility] POTASSIUM 4.2 3.5 - 5.1 mmol/L 12/08/2024 8:37 AM [facility] CHLORIDE 99 98 - 107 mmol/L 12/08/2024 8:37 AM [facility] CO2 32(H) 22 - 29 mmol/L 12/08/2024 8:37 AM [facility] CALCIUM 10.1 8.8 - 10.2 mg/dL 12/08/2024 8:37 AM [facility] BUN 15 8 - 23 mg/dL 12/08/2024 8:37 AM [facility] CREATININE 0.86 0.67 - 1.17 mg/dL 12/08/2024 8:37 AM [facility] GLUCOSE 96 74 - 99 mg/dL 12/08/2024 8:37 AM [facility] GFR >60 >=60 mL/min/1.7 3 sq meter 12/08/2024 8:37 AM [facility] Comment:eGFR calculated with 2020 CKD-EPI equation. Vegetarian diet, extremely high or low muscle mass, and may affect results. Cystatin C with Glomerular Filtration Rate is a suitable alternative for these patients. ANION GAP 9 5 - 20 mmol/L 12/08/2024 8:37 AM [facility] Blood Venipuncture / Unknown 12/08/2024 8:16 AM CDT 12/08/2024 8:19 AM CDT Jase Bautista DO CHEMISTRY ORDERABLES Final Re sult [facility] CLIA # [id number] [address] [place] [address] * (ABNORMAL) COMPREHENSIVE METABOLIC PANEL (12/06/2024 8:15 AM CDT) Only the most recent of2 resultswithin the time period is included. SODIUM 139 136 - 145 mmol/L 12/06/2024 9:06 AM [facility] POTASSIUM 4.0 3.5 - 5.1 mmol/L 12/06/2024 9:06 AM [facility] CHLORIDE 101 98 - 107 mmol/L 12/06/2024 9:06 AM [facility] CO2 27 22 - 29 mmol/L 12/06/2024 9:06 AM [facility] CALCIUM 9.2 8.8 - 10.2 mg/dL 12/06/2024 9:06 AM [facility] BUN 23 8 - 23 mg/dL 12/06/2024 9:06 AM [facility] CREATININE 0.79 0.67 - 1.17 mg/dL 12/06/2024 9:06 AM [facility] GLUCOSE 145(H) 74 - 99 mg/dL 12/06/2024 9:06 AM [facility] TOTAL PROTEIN 6.1(L) 6.6 - 8.7 g/dL 12/06/2024 9:06 AM [facility] ALBUMIN 3.8(L) 4.0 - 4.9 g/dL 12/06/2024 9:06 AM [facility] BILIRUBIN TOTAL 0.2 0.0 - 1.2 mg/dL 12/06/2024 9:06 AM [facility] ALKALINE PHOSPHATASE 70 40 - 129 U/L 12/06/2024 9:06 AM [facility] AST 17 0 - 50 U/L 12/06/2024 9:06 AM [facility] ALT 14 0 - 50 U/L 12/06/2024 9:06 AM [facility] GFR >60 >=60 mL/min/1.7 3 sq meter 12/06/2024 9:06 AM [facility] Comment:eGFR calculated with 2020 CKD-EPI equation. Vegetarian diet, extremely high or low muscle mass, and may affect results. Cystatin C with Glomerular Filtration Rate is a suitable alternative for these patients. ANION GAP 11 5 - 20 mmol/L 12/06/2024 9:06 AM [facility] Blood BLOOD SPECIMEN / Unknown Collection / Unknown 12/06/2024 8:15 AM CDT 12/06/2024 8:26 AM CDT us Sarah Beth Segura MD CHEMISTRY ORDERABLES Final Resu lt [facility] CLIA # [id number] [address] [place] [address] [id number] * (ABNORMAL) URINALYSIS WITH REFLEX MICROSCOPIC (12/04/2024 9:20 PM CDT) COLOR UA Yellow Pale to Dark Yellow 12/04/2024 9:38 PM [facility] CLARITY UA Clear Clear 12/04/2024 9:38 PM [facility] SPECIFIC GRAVITY UA 1.025 1.003 - 1.035 12/04/2024 9:38 PM [facility] PH UA 6.0 5.0 - 8.0 12/04/2024 9:38 PM [facility] LEUKOCYTE ESTERASE UA Negative Negative 12/04/2024 9:38 PM [facility] NITRITE UA Negative Negative 12/04/2024 9:38 PM [facility] PROTEIN UA Negative Negative 12/04/2024 9:38 PM CDT [facility] GLUCOSE UA Trace(A) Negative 12/04/2024 9:38 PM CDT [facility] KETONES UA Negative Negative 12/04/2024 9:38 PM CDT [facility] UROBILINOGEN UA 0.2 <2.0 mg/dL 9:38 PM CDT [facility] BILIRUBIN UA Negative Negative 12/04/2024 9:38 PM CDT [facility] BLOOD UA Negative Negative 12/04/2024 9:38 PM CDT [facility] Urine URINE SPECIMEN OBTAINED BY CLEAN CATCH PROCEDURE / Unknown Collection / Unknown 12/04/2024 9:20 PM CDT 12/04/2024 9:35 PM CDT us Sarah Beth Segura MD URINE ORDERABLES Final Result [facility] CLIA # [id number] [address] [place] [address] * (ABNORMAL) TROPONIN 2 HR, 5TH GEN (12/04/2024 3:55 PM CDT) TROPONIN T, 2 HR 5TH GEN 23(H) <=15 ng/L 12/04/2024 4:18 PM CDT [facility] DELTA 2HR TROPONIN T -3 See Interp. 12/04/2024 4:18 PM CDT [facility] Blood BLOOD SPECIMEN / Unknown Collection / Unknown 12/04/2024 3:55 PM CDT 12/04/2024 4:03 PM CDT Narrative [facility] - 12/04/2024 4:18 PM CDT Troponin elevated. Delta not changing. Delay in collection of timed specimen beyond recommended collection interval. Results must be interpreted in clinical context. us Sarah Beth Segura MD CHEMISTRY ORDERABLES Final Resu lt [facility] CLIA # [id number] [address] [place], [place] [id number] * XR CHEST PA OR AP 1 VW (12/04/2024 3:34 PM CDT) Anatomical Region Laterality Modality Chest Computed Radiogr aphy 12/04/2024 3:34 PM CDT Impressions 12/04/2024 4:09 PM CDT IMPRESSION: Please see below. Exam: XR CHEST PA OR AP 1 VW Date/Time of Exam: 12/04/2024 3:34 PM Reason For Exam: Shortness of Breath SOB, Hypoxia. Diagnosis: See Reason for Exam. Findings: No pleural effusion or pneumothorax. Emphysematous change. No consolidating airspace disease. Cardiac silhouette within normal limits. Imaged skeleton without gross acute pathology. Narrative Procedure Note Ema Proctor MD - 12/04/2024 IMPRESSION: Please see below. Exam: XR CHEST PA OR AP 1 VW Date/Time of Exam: 12/04/2024 3:34 PM Reason For Exam: Shortness of Breath SOB, Hypoxia. Diagnosis: See Reason for Exam. Findings: No pleural effusion or pneumothorax. Emphysematous change. No consolidating airspace disease. Cardiac silhouette within normal limits. Imaged skeleton without gross acute pathology. Sarah Beth Segura MD DIAGNOSTIC IMAGING ORDERABLES F inal Result * EKG 12 lead (12/04/2024 2:13 PM CDT) Narrative Sarah Beth Segura MD - 12/04/2024 2:13 PM CDT Sarah Beth Segura MD 12/04/2024 8:25 PM EKG 12 lead Date/Time: 12/04/2024 2:13 PM Performed by: Sarah Beth Segura MD Authorized by: Sarah Beth Segura MD ECG interpreted by ED Physician in the absence of a lathe operator: yes Rate: ECG rate: 107 ECG rate assessment: tachycardic Rhythm: Rhythm Origin: sinus Ectopy: Ectopy occurance: occasional Ectopy origin: PVCs Intervals: normal QRSTT: QRSTT changes: Yes Comments: Peaked T waves in leads V3-V6 Sarah Beth Segura MD ECG ORDERABLES Final Result * (ABNORMAL) TROPONIN BASELINE, 5TH GEN (12/04/2024 2:02 PM CDT) TROPONIN T, BASELINE 5TH GEN 26(H) <=15 ng/L 12/04/2024 3:00 PM CDT [facility] Blood BLOOD SPECIMEN / Unknown Collection / Unknown 12/04/2024 2:02 PM CDT 12/04/2024 2:46 PM CDT Narrative [facility] - 12/04/2024 3:00 PM CDT Troponin elevated. Sarah Beth Segura MD CHEMISTRY ORDERABLES Final Resu lt [facility] CLIA # [id number] [address] [place] [address] * (ABNORMAL) LACTIC ACID (12/04/2024 2:02 PM CDT) LACTIC ACID 2.1(H) <=2.0 mmol/L 12/04/2024 2:25 PM CDT [facility] Blood BLOOD SPECIMEN / Unknown Collection / Unknown 12/04/2024 2:02 PM CDT 12/04/2024 2:10 PM CDT Sarah Beth Segura MD CHEMISTRY ORDERABLES Final Resu lt [facility] CLIA # [id number] [address] [place] [address] * SEDIMENTATION RATE (12/04/2024 2:02 PM CDT) ESR (SEDIMENTATION RATE) 7 0 - 20 mm/Hr 12/04/2024 2:21 PM CDT [facility] Blood Collection / Unknown 12/04/2024 2:02 PM CDT 12/04/2024 2:10 PM CDT [facility] - 12/04/2024 2:21 PM CDT Tube Lot: #[id number] Exp Date: 04/30/2026 SR 0125-1 EXP. 02/02/25 SR 0125-2 EXP. 02/02/25 us Sarah Beth Segura MD HEMATOLOGY ORDERABLES Final Res ult Performing Organization Address [facility] Co de Phone Number [facility] # [id number] [address] [place] [address] * D-DIMER (12/04/2024 2:02 PM CDT) D-DIMER QUANT <0.15 <0.50 ug/mL FEU 12/04/2024 2:25 PM CDT [facility] Blood Collection / Unknown 12/04/2024 2:02 PM CDT 12/04/2024 2:10 PM CDT [facility] - 12/04/2024 2:25 PM CDT D-Dimer assay cutoff value for exclusion of DVT and/or PE is <0.50 ug/mL FEU. As D-Dimer levels increase naturally with age, age stratification for patients over 50 is potentially more appropriate in determining whether a patient should undergo further evaluation for DVT and/or PE than a general cutoff of 0.50 ug/mL FEU. Clinical consideration is recommended. Age Stratified Cutoff Values: 50-60 years: 0.50-0.60 ug/mL FEU 61-70 years: 0.61-0.70 ug/mL FEU 71-80 years: 0.71-0.80 ug/mL FEU us Sarah Beth Segura MD HEMATOLOGY ORDERABLES Final Res ult Performing Organization Address City/[facility]/ZIP Co de Phone Number [facility] CLIA # [id number] [address] [place] [address] * C-REACTIVE PROTEIN (12/04/2024 2:02 PM CDT) CRP 3.3 <5.0 mg/L 12/04/2024 2:2 9 PM CDT [facility] Blood Collection / Unknown 12/04/2024 2:02 PM CDT 12/04/2024 2:10 PM CDT Sarah Beth Segura MD CHEMISTRY ORDERABLES Final Resu lt Performing Organization Address [facility] Co de Phone Number [facility] CLIA # [id number] [address] [place] [id number] * BRAIN NATRIURETIC PEPTIDE, BNP OR PROBNP (12/04/2024 2:02 PM CDT) PROBNP, N TERMINAL 106 0 - 125 pg/mL 12/04/2024 2:29 PM CDT [facility] Comment: INTERPRETIVE COMMENT based on diagnosis: Diagnostic NT pro-BNP cutoffs for Heart Failure in the absence of renal failure is suggested for the following ranges <75 years: <125 pg/mL >=75 years: <450 pg/mL Exclusionary rule out cut-point for Acute Decompensated Heart Failure(ADHF) All ages: <300 pg/mL Diagnostic NT pro-BNP cutoffs for Acute Decompensated Heart Failure(ADHF) in the absence of renal failure is suggested for the following ages <50 years: > 450 pg/mL 50-75 years: > 900 pg/mL >75 years: >1800 pg/mL Blood Collection / Unknown 12/04/2024 2:02 PM CDT 12/04/2024 2:10 PM CDT us Sarah Beth Segura MD CHEMISTRY ORDERABLES Final Resu lt Performing Organization Address [facility]/ZIP Co de Phone Number [facility] CLIA # [id number] [address] [place] [id number] * MAGNESIUM LEVEL (12/04/2024 2:02 PM CDT) MAGNESIUM 2.1 1.6 - 2.4 mg/dL 12/04/2024 2:29 PM CDT [facility] Blood Collection / Unknown 12/04/2024 2:02 PM CDT 12/04/2024 2:10 PM CDT us Sarah Beth Segura MD CHEMISTRY ORDERABLES Final Resu lt [facility] CLIA # [id number] [address] [id number] from Last 3 Months Insurance MEDICAID [place] [employer] [facility] [employer] [facility] Address: [address] [place] [address] Advance Directives For more information, please contact: [phone] * Full Code (Latest Code Status on File) Date Activated Date Inactivated Comments 12/04/2024 7:01 PM 12/08/2024 6:23 PM * NO CPR (In Event of Cardiopulmonary Arrest) Date Activated Date Inactivated Comments 11/15/2023 4:12 AM 11/17/2023 4:37 PM Question Answer Comments Mechanical Ventilation (for respiratory distress) - Invasive (i.e. intubation): No Mechanical Ventilation (for respiratory distress) - Non-Invasive (i.e. BiPAP, CPAP): Yes Care Teams Catering Sales Manager Relationship Specialty Start Date End Date Ellie Walker MD [address] [phone] PCP - General Family Practice 09/06/24
--- NOTE | 2025-01-26 19:21 | XRR_ITS ---
PROCEDURE INFORMATION: Exam: XR Chest Exam date and time: 01/26/2025 7:37 PM Age: 69 years old Clinical indication: Shortness of breath; SOB; Weakness TECHNIQUE: Imaging protocol: Radiologic exam of the chest. Views: 1 view. COMPARISON: CR XR chest 1V portable [id number] 12/01/2024 11:13 PM FINDINGS: Lungs: Lungs are hyperinflated. Clear parenchyma. Pleural spaces: No pleural effusion. No pneumothorax. Heart/Mediastinum: Cardiac silhouette is normal in size for technique. Stable mild prominence of the main pulmonary arteries. Bones/joints: Age appropriate. XR/XR chest 1V portable [id number] IMPRESSION: Hyperinflated but clear lungs. No other acute cardiopulmonary abnormality.
--- NOTE | 2025-01-26 19:21 | ECG_ITS ---
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 Measurements Intervals [place] Rate: 79 P: 84 [place]: 156 QRS: 90 QRSD: 98 T: 80 QT: 347 QTc: 398 Interpretive Statements SINUS RHYTHM Compared to ECG 11/23/2024 15:41:19 Sinus tachycardia no longer present Electronically Signed On 01-31-2025 09:14:26 CDT by Garth Glover M.D. [email or web address] [id number]
--- NOTE | 2025-01-26 19:23 | W.ED.CHESTPA ---
HPI - Chest Pain General: Chief Complaint: Chest Pain Stated Complaint: chest pain Time Seen by Provider: 01/26/25 18:45 Source: patient Mode of arrival: EMS Limitations: no limitations History of Present Illness: This patient was transported from home by EMS. He states he has having a COPD exacerbation. He has a history of oxygen dependent COPD. He states that he has had some mild coughing and more wheezing than usual over the past couple of days. He is not aware of any fevers or chills. He states his cough has been nonproductive. He states he is out of his inhalers but is used his nebulizer without much relief. He is unaware of any exposure to infectious disease. He denies any chest pain per se but states that he has had issues with heart rhythm in the past but he does not think he was in atrial fibrillation. He states his chest has been more sore with his work of breathing and coughing. He states he normally wears 2 L of oxygen at home and has not increased his oxygen flow rate. He states he is concerned he might have colon cancer but has a colonoscopy scheduled in the next few weeks for evaluation and polypectomy. He states he had some weight loss but is started gaining weight back again. He denies any blood in his stools or other symptoms. Associated symptoms: Reports dyspnea; Deny abdominal pain, fever(s), nausea, syncope or vomiting Related Data Home Medications ?Medication ?Instructions ?Recorded ?Confirmed aspirin 81 mg tablet,delayed 81 mg PO DAILY 11/27/19 11/23/24 release albuterol sulfate 2.5 mg/0.5 mL 5 mg inhalation QID 11/23/24 11/23/24 solution for nebulization amlodipine 5 mg tablet 5 mg PO DAILY 11/23/24 11/23/24 guaifenesin 400 mg tablet 400 mg PO TID 11/23/24 11/23/24 melatonin 5 mg tablet 10 mg PO DAILY 11/23/24 11/23/24 omeprazole 20 mg tablet,delayed 20 mg PO BID 11/23/24 11/23/24 release trazodone 50 mg tablet 50 mg PO BEDTIME 11/23/24 11/23/24 Previous Rx's ?Medication ?Instructions ?Recorded albuterol sulfate 90 mcg/actuation 2 inh inhalation Q6H PRN shortness 03/23/24 aerosol inhaler of breath or wheezing #8.5 grams isosorbide mononitrate 30 mg 30 mg PO DAILY #90 tabs 05/23/24 tablet,extended release 24 hr metoprolol succinate 25 mg 12.5 mg (1/2 x 25 mg) PO DAILY #45 11/16/24 tablet,extended release 24 hr tabs budesonide 160 mcg-glycopyr 9 2 inh inhalation BID #10.7 grams 11/25/24 mcg-formot 4.8 mcg/actuation HFA inhaler (Breztri Aerosphere) levofloxacin 750 mg tablet 750 mg PO DAILY@0600 #5 tabs 11/25/24 prednisone 20 mg tablet 40 mg (2 x 20 mg) PO DAILY #4 tabs 11/25/24 prednisone 10 mg tablet 10 mg PO DIRECTED #30 tabs 12/01/24 nitroglycerin 0.4 mg sublingual 0.4 mg sublingual Q5M PRN chest 12/03/24 tablet pain #25 tabs Allergies Allergy/AdvReac Type Severity Reaction Status Date / Time No Known Allergies Allergy Verified 08/02/24 22:45 Review of Systems Const: Denies: fever(s) or chills ENMT: Denies: throat pain, odynophagia, nasal discharge or nasal congestion Card: Denies: syncope or pre-syncope Resp: Reports: dyspnea, non-productive cough and wheezing GI: Denies: abdominal pain, nausea, vomiting, hematochezia or melena : Denies: flank pain, difficulty urinating or dysuria Musc: Denies: neck pain or back pain Skin/Breast: Denies: rash Neuro: Denies: headache(s), numbness in extremities or weakness in extremities PFSH ED PFSH: Medical History Essential hypertension History of migraine headaches Vitamin D deficiency Hepatitis C Treatment status unknown Hx of colonic polyps Sessile on colonoscopy 02/16 Depression GERD (gastroesophageal reflux disease) Peptic ulcer disease Gastric ulcer on EGD 02/16 COPD (chronic obstructive pulmonary disease) Surgical History History of colonoscopy with polypectomy 2019 Status post excision of lipoma (~01/2019) Hx of appendectomy Family History Father Tuberculosis Denies family history of Diabetes Cancer Social History Smoking and tobacco/nicotine status: current every day tobacco/nicotine user cigarettes Packs smoked per day: 1.5 Years cigarettes smoked: 46 [ Other cigarette details: started at age 22] Second hand smoke exposure: No Alcohol intake: current Alcohol intake frequency: holidays/special occasions only Substance/Drug Use: unknown Adopted: No Caregiver/support person: No Lives independently: Yes Household members: spouse Housing: House Marital status: service: No Current occupational status: retired Pets and animals: Yes Do you think of yourself as: Straight/Heterosexual Current gender identity: Male Physical Exam Narrative: EXAM NARRATIVE: He is alert and conversant. He does speak in relatively full sentences with some dyspnea present. Const: COMMON NORMALS: no acute distress and patient oriented x3 GENERAL APPEARANCE: cooperative and comfortable NUTRITIONAL APPEARANCE: thin HENMT: COMMON NORMALS: atraumatic, Normal nasal mucous membranes and turbinates present, moist oral mucous membranes and oropharynx normal HEAD & SCALP: atraumatic NOSE: Normal nasal mucous membranes and turbinates present Eye: COMMON NORMALS: Equal, round and reactive pupils present, conjunctivae normal and no scleral icterus CONJUNCTIVA: Yes conjunctivae normal PUPIL: Yes Equal, round and reactive pupils present Neck/C-Spine: COMMON NORMALS: full ROM, no lymphadenopathy, no JVD and No carotid bruits Chest: COMMONS NORMALS: normal inspection of the chest Resp: COMMON NORMALS: No retractions EFFORT & INSPECTION: Yes prolonged expiratory phase AUSCULTATION: crackles and wheezes expiratory wheezes and scattered wheezes Cardio: COMMON NORMALS: no JVD, regular rate, regular rhythm, No murmurs present (Cardio) and Peripheral pulses 2+ throughout RATE: regular rate RHYTHM: regular rhythm PERIPHERAL PULSES: Peripheral pulses 2+ throughout GI: COMMON NORMALS: Normal to inspection, nondistended, normoactive bowel sounds present and Soft to palpation PALPATION: Yes Soft to palpation Back/Pelvis: COMMON NORMALS: thoracic and lumbar spine normal to inspection and thoraco-lumbar ROM normal Extremity: COMMON NORMALS: normal to inspection, full ROM, no calf tenderness and no pedal edema Neuro: COMMON NORMALS: patient oriented x3, moves all extremities, no focal motor deficits and no sensory deficits noted Psych: COMMON NORMALS: mental status grossly normal Skin: COMMON NORMALS: no rashes or lesions noted, no wounds and turgor normal GENERAL SKIN EXAM: no rashes or lesions noted and turgor normal Course Reevaluation(s): Reevaluation #1: Patient states he is breathing a bit easier but still not back to baseline. He still states his chest is sore and has been continuously sore for the last 2 days. His initial troponin is slightly over the URL and we are awaiting a 2-hour troponin. His chest auscultation reveals improved airflow still with significant expiratory wheezing will repeat his DuoNeb treatment. Time: 20:33 Reevaluation #2: Patient states he is not back at his baseline yet. He has received a second treatment as well as all his steroids. His second troponin is reassuring mitigating ACS etc. at play at this point. Chest x-ray reveals no pneumonia. Reauscultation reveals bilateral crackles and wheezes. His pulse oximetry remains at 98% on 2 L nasal cannula. Patient is not comfortable with returning to his domicile at this point and I think it is reasonable for us to place him in observation for continued nebulization and steroid treatment for his COPD exacerbation. Time: 21:27 Consultations: Consultation #1: Discussed with overnight hospitalist Dr. Ball who agreed to evaluate the patient for observation medicine Time: 21:35 Vital Signs: Vital signs: Vital Signs Temperature 97.9 F 01/26/25 18:57 Pulse Rate 73 01/26/25 19:35 Respiratory Rate 18 01/26/25 19:35 Blood Pressure 119/78 01/26/25 19:10 Pulse Oximetry 98 01/26/25 19:35 Oxygen Delivery Me thod Nasal Cannula 01/26/25 19:35 Oxygen Flow Rate 2 01/26/25 19:35 MDM - Chest Pain Medical Decision Making This patient was transported to the Emergency Department from his home by EMS due to increasing wheezing and shortness of breath over the past 48 or the hours or thereabouts. Patient has a known history of oxygen dependent COPD and has a regimen that he adheres to at home. He states he has had chest soreness for the last 2 days but which has been constant in duration and intensity and seems to be related to his work of breathing. He denies fevers or chills or productive cough. He states he has not had any other constitutional symptoms such as nausea vomiting diarrhea etc. He denies any known exposure to infectious disease. His evaluation revealed him to be on his normal 2 L of oxygen with evidence of prolonged expiration with both inspiratory and expiratory wheezing and crackles. Treatment as well as workup initiated to establish whether there was any comorbidities such as ACS, pneumonia etc. He received beta agonist, corticosteroids and evaluation as noted to include electrocardiogram serial troponins blood count radiographs. Radiograph did not reveal any evidence of infiltrative process and revealed a normal heart size. His initial troponin was slightly over the URL but a repeat showed a negative delta making ACS unlikely and particularly in light of his duration of chest soreness symptoms. Despite treatment Emergency Department the patient subjectively was not at his baseline and objectively he still had significant adventitious findings on his lung examination. It was felt that he warranted additional observation for continued beta agonist treatment, corticosteroids supplemental oxygen IV hydration etc. as indicated. Hospital medicine was consulted who agreed to evaluate the patient for observation. Lab Data I reviewed the patient's lab results. 01/26/25 19:00 01/26/25 19:00 Radiology Impressions Chest X-Ray 01/26/25 19:21 IMPRESSION: Hyperinflated but clear lungs. No other acute cardiopulmonary abnormality. Laboratory Results WBC 14.59 10^3/uL (3.29-11.43) H 01/26/25 19:00 RBC 4.34 10^6/uL (3.85-5.65) 01/26/25 19:00 Hgb 12.10 g/dL (11.27-16.99) 01/26/25 19:00 Hct 40.1 % (37-53) 01/26/25 19:00 MCV 92.4 fl (82-101) 01/26/25 19:00 MCH 27.9 pg (27-33) 01/26/25 19:00 MCHC 30.2 g/dL (30-55) 01/26/25 19:00 RDW 12.9 % (12.1-15.1) 01/26/25 19:00 Plt Count 341 10^3/cmm (157-399) 01/26/25 19:00 MPV 9.7 fL (7.4-10.4) 01/26/25 19:00 Neut % (Auto) 81.5 % 01/26/25 19:00 Lymph % (Auto) 7.1 % 01/26/25 19:00 [place] % (Auto) 7.3 % 01/26/25 19:00 Eos % (Auto) 2.6 % 01/26/25 19:00 Baso % (Auto) 0.5 % 01/26/25 19:00 Neut # (Auto) 11.89 10^3/uL (1.8-7.7) H 01/26/25 19:00 Lymph # (Auto) 1.0 10^3/uL (0.8-4.8) 01/26/25 19:00 [place] # (Auto) 1.1 10^3/uL (0.2-0.9) H 01/26/25 19:00 Eos # (Auto) 0.4 10^3/uL (0.0-0.8) 01/26/25 19:00 Baso # (Auto) 0.1 10^3/uL (0.0-0.1) 01/26/25 19:00 Nucleated RBC % (auto) 0 % 01/26/25 19:00 Nucleated RBCs # 0.0 /100WBC 01/26/25 19:00 Sodium 143 mmol/L (136-145) 01/26/25 19:00 Potassium 3.7 mmol/L (3.5-5.1) 01/26/25 19:00 Chloride 101 mmol/L (98-107) 01/26/25 19:00 Carbon Dioxide 31 mmol/L (22-29) H 01/26/25 19:00 Anion Gap 14.7 (5-19) 01/26/25 19:00 BUN 15 mg/dL (8-23) 01/26/25 19:00 Creatinine 0.8 mg/dL (0.7-1.2) 01/26/25 19:00 GFR Calculation 96.1 mL/min (90-130) 01/26/25 19:00 Glucose 157 mg/dL (65-115) H 01/26/25 19:00 Calculated Osmolality 300 mOsm/kg (285-295) H 01/26/25 19:00 Calcium 9.2 mg/dL (8.5-10.5) 01/26/25 19:00 Total Bilirubin 0.2 mg/dL (0.15-1.2) 01/26/25 19:00 AST 12 U/L (0-40) 01/26/25 19:00 ALT 10 U/L (0-41) 01/26/25 19:00 Alkaline Phosphatase 92 U/L (40-130) 01/26/25 19:00 Troponin T Baseline 16 ng/L (0-15) H 01/26/25 19:00 Troponin T 120 Minute 14.38 ng/L (0-15) 01/26/25 20:36 Delta Troponin T -1.62 ABS# (0-10) L 01/26/25 20:36 NT-Pro-B Natriuret Pep 121 pg/mL (0-125) 01/26/25 19:00 Total Protein 6.1 g/dL (6.6-8.7) L 01/26/25 19:00 Albumin 3.8 g/dL (3.5-5.2) 01/26/25 19:00 Globulin 2.3 g/dL (1.3-4.6) 01/26/25 19:00 Influenza A (PCR) Negative (Negative) 01/26/25 19:00 Influenza Type B (PCR) Negative (Negative) 01/26/25 19:00 RSV (PCR) Negative (Negative) 01/26/25 19:00 SARS-CoV-2 (PCR) Negative (Negative) 01/26/25 19:00 All radiology interpretation(s) finalized by discharge EKG Data EKG 1: I personally reviewed and interpreted this EKG as follows: Interpretation: Contemporaneous review of EKG reveals ventricular rate of 79 bpm. Normal [place] interval normal QRS duration. Normal QTc interval. Normal axis. He has no acute ST-T wave changes does have aHe did not display any signs of anemia. He did have elevation in his BUN prominent T waves but these are unchanged and similar to that which is seen in prior tracings within the system. Discharge Plan Discharge Patient Disposition: Placed in Observation Clinical Impression: COPD with acute exacerbation Coding Level of Care Code ED Electronics Technician Apprentice for Oli Moise
[2025-01-26] MEDS: methylPREDNISolone sod succ 125 mg/2 mL INJ 60 MG IVP (19:33)
[2025-01-26 19:41] LABS: Hematocrit 40.1 % (37-53); Hemoglobin 12.10 g/dL (11.27-16.99); Mean Corpuscular HGB Conc 30.2 g/dL (30-55); Mean Corpuscular Hemoglobin 27.9 pg (27-33); Mean Corpuscular Volume 92.4 fl (82-101); Nucleated Red Blood Cells % 0 %; Platelet Count 341 10^3/cmm (157-399); Red Blood Count 4.34 10^6/uL (3.85-5.65); White Blood Count 14.59 10^3/uL (3.29-11.43)
[2025-01-26 20:07] LABS: Troponin(5th) Baseline 16 ng/L (0-15)
[2025-01-26 20:11] LABS: Respiratory Syncytial Virus Ce NEGATIVE (Negative); SARS-CoV-2 PCR NEGATIVE (Negative)
[2025-01-26 20:16] LABS: Alanine Aminotransferase 10 U/L (0-41); Albumin Level 3.8 g/dL (3.5-5.2); Alkaline Phosphatase 92 U/L (40-130); Anion Gap 14.7 (5-19); Aspartate Amino Transferase 12 U/L (0-40); Blood Urea Nitrogen 15 mg/dL (8-23); Calcium 9.2 mg/dL (8.5-10.5); Carbon Dioxide 31 mmol/L (22-29); Chloride 101 mmol/L (98-107); Creatinine Clr Calc Pharmacy 59.5338; Globulin 2.3 g/dL (1.3-4.6); Glucose 157 mg/dL (65-115); NT Pro B Type Natriuretic Pept 121 pg/mL (0-125); Osmolality Calculated 300 mOsm/kg (285-295); Potassium 3.7 mmol/L (3.5-5.1); Sodium 143 mmol/L (136-145); Total Protein 6.1 g/dL (6.6-8.7)
[2025-01-26 21:21] LABS: Troponin 5 2HR 14.38 ng/L (0-15)
[2025-01-26 21:25] LABS: Troponin 5 2HR Delta -1.62 ABS# (0-10)
--- NOTE | 2025-01-26 22:08 | PM.HP ---
Providers/Chief Complaint Admitting Physician: Александр Proctor MD Primary Care Provider: Ellie Irene MD Chief Complaint: chest pain History of Present Illness Naren Pritchard is a 69 year old male comes in with 2 to 3 days of coughing wheezing creamy yellow phlegm with COPD exacerbation. He states his chest has been sore for 2 days. He had troponins which were downtrending and negative. Dr. Valiente treated patient with Solu-Medrol and nebulizers and request admission. Patient is chronically on 2 L of oxygen at home. Oxygen saturations here 90% on his usual home oxygen. White count elevated to 15. Patient states he was at 120 pounds last year then lost weight down to 87 now back up to 105. He states he was eating all through the weight loss. He has colonoscopy pending patient denies blood in the urine or blood in the stool. Review of Systems Narrative: General no fevers he has had chills without sweats reports weight loss and now gain as above Cardiovascular no chest pain palpitations edema Respiratory positive for shortness of breath cough productive of yellow phlegm has had wheezing dyspnea on exertion GI no nausea vomiting diarrhea constipation no dysuria hematuria incontinence Neuro no seizures strokes limb weakness Heme no blood clots in legs or lungs Malignancy thinks he has had some precancerous polyps he is due for colonoscopy and plans to have that done soon. Medications/Allergies Home Medications ?Medication ?Instructions ?Recorded ?Confirmed ?Last Taken ?Type aspirin 81 mg tablet,delayed 81 mg PO DAILY 11/27/19 11/23/24 11/22/24 History release albuterol sulfate 90 mcg/actuation 2 inh inhalation Q6H PRN shortness 03/23/24 11/23/24 11/22/24 Rx aerosol inhaler of breath or wheezing #8.5 grams isosorbide mononitrate 30 mg 30 mg PO DAILY #90 tabs 05/23/24 11/23/24 11/22/24 Rx tablet,extended release 24 hr metoprolol succinate 25 mg 12.5 mg (1/2 x 25 mg) PO DAILY #45 11/16/24 11/23/24 11/22/24 Rx tablet,extended release 24 hr tabs albuterol sulfate 2.5 mg/0.5 mL 5 mg inhalation QID 11/23/24 11/23/24 Unknown History solution for nebulization amlodipine 5 mg tablet 5 mg PO DAILY 11/23/24 11/23/24 Unknown History guaifenesin 400 mg tablet 400 mg PO TID 11/23/24 11/23/24 Unknown History melatonin 5 mg tablet 10 mg PO DAILY 11/23/24 11/23/24 Unknown History omeprazole 20 mg tablet,delayed 20 mg PO BID 11/23/24 11/23/24 Unknown History release trazodone 50 mg tablet 50 mg PO BEDTIME 11/23/24 11/23/24 Unknown History budesonide 160 mcg-glycopyr 9 2 inh inhalation BID #10.7 grams 11/25/24 Unknown Rx mcg-formot 4.8 mcg/actuation HFA inhaler (Breztri Aerosphere) levofloxacin 750 mg tablet 750 mg PO DAILY@0600 #5 tabs 11/25/24 Unknown Rx prednisone 20 mg tablet 40 mg (2 x 20 mg) PO DAILY #4 tabs 11/25/24 Unknown Rx prednisone 10 mg tablet 10 mg PO DIRECTED #30 tabs 12/01/24 Unknown Rx nitroglycerin 0.4 mg sublingual 0.4 mg sublingual Q5M PRN chest 12/03/24 Unknown Rx tablet pain #25 tabs Allergies Allergy/AdvReac Type Severity Reaction Status Date / Time No Known Allergies Allergy Verified 08/02/24 22:45 PFSH Acute PFSH: Medical History (Updated 01/26/25 @ 22:14 by Александр Proctor MD) Weight loss, unintentional Essential hypertension History of migraine headaches Vitamin D deficiency Hepatitis C Treatment status unknown Hx of colonic polyps Sessile on colonoscopy 02/16 Depression GERD (gastroesophageal reflux disease) Peptic ulcer disease Gastric ulcer on EGD 02/16 COPD (chronic obstructive pulmonary disease) Surgical History History of colonoscopy with polypectomy 2019 Status post excision of lipoma (~01/2019) Hx of appendectomy Family History Father Tuberculosis Denies family history of Diabetes Cancer Social History (Updated 01/26/25 @ 22:12 by Александр Proctor MD) Smoking and tobacco/nicotine status: former use of tobacco/nicotine Quit status (tobacco/nicotine): has quit using Year quit tobacco: 2023 Former quit date comment: Was hospitalized for COPD went home and just never smoked again Second hand smoke exposure: No Alcohol intake: current Alcohol intake frequency: holidays/special occasions only Substance/Drug Use: unknown Additional social history: 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 Alcohol is none illicits none tobacco now also none after smoking 1 to 1-1/2 packs/day for 42 years lives with his and his nephew. 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 Pets and animals: Yes Do you think of yourself as: Straight/Heterosexual Current gender identity: Male Vitals/I&O/Wt Last Vital Signs Temp 97.9 F 01/26/25 18:57 Pulse 77 01/26/25 21:52 Resp 16 01/26/25 21:52 BP 104/76 01/26/25 21:52 Pulse Ox 94 01/26/25 21:52 O2 Del Method Nasal Cannula 01/26/25 21:32 O2 Flow Rate 2 01/26/25 21:32 01/26/25 01/26/25 01/26/25 06:59 14:59 22:59 Intake Total 0 / 0 Balance 0 / 0 Weight last 48 hrs Weight 47.627 kg Physical Exam Narrative: General well-developed thin male of 5 foot 4 inches tall CV regular rate and rhythm Lungs prolonged expiratory phase with wheezing diffusely deep breaths causes cough. I do not hear crackles Abdomen positive bowel tones soft nontender Calves no tenderness cords pretrip edema Oral Mallampati 1 he is edentulous Mentation alert and oriented x 3 pleasant Neuro moves all extremities symmetrically speech is clear Data 01/26/25 19:00 01/26/25 19:00 A&P Assessment and plan (1) COPD with acute exacerbation: Patient is admitted with azithromycin for bronchitis DuoNebs and Decadron. Start incentive spirometry and respiratory assessment with the therapist. Anticipate improvement. Support with oxygen for saturation greater than 93% (2) Acute on chronic respiratory failure with hypoxia and hypercapnia: Worsening of his chronic hypoxemia (3) Weight loss, unintentional: Unclear etiology. Agree with plans for colonoscopy. Will add urinalysis PDMP PDMP Reviewed: Not Reviewed Attestations Medical Necessity Statement*: Patient mid to the hospital with COPD exacerbation. Anticipate hospitalization of 1-2 nights Coding Level of Care Code 87101 Diagnoses COPD with acute exacerbation J44.1 Acute on chronic respiratory failure with hypoxia and hypercapnia J96.21; J96.22 Weight loss, unintentional R63.4 Time Spent (min) 70
[2025-01-27] VITALS (14 sets, daily range): BP systolic 112–145; BP diastolic 61–82; PULSE 77–98; RESP 16–20; TEMP 36.6–36.7; O2SAT 94–98
--- NOTE | 2025-01-27 01:26 | ECG_ITS ---
[facility] Test Date: 2025-01-27 Pat Name: Naren Pritchard Department: Room: 251 Gender: Male Whizzer Operator: : 1955 Requested By: Dallas Valiente Order Number: [id number] Walker MD: Garth Glover M.D. Measurements Intervals [place] Rate: 82 P: 79 NE: 159 QRS: 78 QRSD: 85 T: 70 QT: 353 QTc: 414 Interpretive Statements SINUS RHYTHM Compared to ECG 11/23/2024 15:41:19 Sinus tachycardia no longer present Electronically Signed On 01-31-2025 09:37:58 CDT by Garth Gloevr M.D. [email or web address] [email or web address]
[2025-01-27 01:46] LABS: Glucose Urine UA Negative (Normal); Nitrate Urine Negative (Negative); Specific Gravity, Urine 1.017 (1.005-1.030)
[2025-01-27 02:05] LABS: Hematocrit 35.7 % (37-53); Hemoglobin 10.90 g/dL (11.27-16.99); Mean Corpuscular HGB Conc 30.5 g/dL (30-55); Mean Corpuscular Hemoglobin 28.7 pg (27-33); Mean Corpuscular Volume 93.9 fl (82-101); Nucleated Red Blood Cells % 0 %; Platelet Count 294 10^3/cmm (157-399); Red Blood Count 3.80 10^6/uL (3.85-5.65); White Blood Count 10.74 10^3/uL (3.29-11.43)
[2025-01-27 02:23] LABS: Troponin 5 6HR 12.77 ng/L (0-15)
[2025-01-27 02:25] LABS: Troponin 5 6HR Delta -3.23 ng/L (0-12)
[2025-01-27] MEDS: metoprolol succinate ER (24 HR) 25 mg Tablet 12.5 MG PO (09:19)
--- NOTE | 2025-01-27 12:25 | P.PN_ITS ---
Subjective 2 Subjective: Admitted overnight. Examination patient sleeping comfortably in bed. Denies any nausea, vomiting, headache. Complains of cough. States breathing is better than when he was admitted. Currently on 2 L of oxygen supplementation. Vitals/I&O/Wt Last Vital Signs Temp 97.8 F 01/27/25 11:36 Pulse 86 01/27/25 11:36 Resp 18 01/27/25 11:36 BP 145/65 01/27/25 11:36 Pulse Ox 95 01/27/25 11:36 O2 Del Method Nasal Cannula 01/27/25 11:36 O2 Flow Rate 2 01/27/25 07:40 01/26/25 01/27/25 01/27/25 22:59 06:59 14:59 Intake Total 0 / 0 360 / 360 Output Total 800 / 800 300 / 300 Balance 0 / 0 -800 / -800 60 / 60 Weight last 48 hrs Weight 52.118 kg Weight 50.349 kg Weight 47.627 kg Physical Exam 2 Narrative: General well-developed thin male of 5 foot 4 inches tall CV regular rate and rhythm Lungs prolonged expiratory phase with wheezing diffusely deep breaths causes cough. I do not hear crackles Abdomen positive bowel tones soft nontender Calves no tenderness cords pretrip edema Oral Mallampati 1 he is edentulous Mentation alert and oriented x 3 pleasant Neuro moves all extremities symmetrically speech is clear Data 01/27/25 01:25 01/26/25 19:00 A&P Assessment and plan (1) COPD with acute exacerbation: Patient is admitted with azithromycin for bronchitis DuoNebs and Decadron. Start incentive spirometry and respiratory assessment with the therapist. Anticipate improvement. Support with oxygen for saturation greater than 93% (2) Acute on chronic respiratory failure with hypoxia and hypercapnia: Worsening of his chronic hypoxemia (3) Weight loss, unintentional: Unclear etiology. Agree with plans for colonoscopy. Will add urinalysis Plan Plan for the day: Admitted for acute hypoxic respiratory failure in setting of bronchitis leading to COPD exacerbation. Continue with Pulmicort twice daily, DuoNeb every 6 hour. Switch to prednisone 40 mg oral daily. Check sputum culture. Patient has history of sputum culture positive for haemophilus in the past. Continue with oral azithromycin. Will add Augmentin for at least 5-day course. Goal blood pressure less than 140/90 mmHg. Continue with current home antihypertensive. Oxygen supplementation keeping saturation over 88%. Wean accordingly. PDMP PDMP Reviewed: Not Reviewed Attestations 2 Medical Necessity Statement*: Requested hospitalization for management of acute hypoxic respiratory failure in setting of bronchitis leading to COPD exacerbation Diagnoses COPD with acute exacerbation J44.1 Acute on chronic respiratory failure with hypoxia and hypercapnia J96.21; J96.22 Weight loss, unintentional R63.4
[2025-01-27 13:07] LABS: Iron 21 ug/dL (59-158); Total Iron Binding Capacity 218 mcg/dl; Unsaturated Iron Binding 197 ug/dL (112-347)
[2025-01-27 13:14] LABS: Procalcitonin 0.11 ng/mL (0-0.5)
[2025-01-27] MEDS: ondansetron 2 mg/ML SDV 2 mL 4 MG IVP (19:45)
[2025-01-28] VITALS (12 sets, daily range): BP systolic 108–157; BP diastolic 52–75; PULSE 79–97; RESP 16–20; TEMP 36.6–37.3; O2SAT 93–98
[2025-01-28 05:17] LABS: Hematocrit 33.8 % (37-53); Hemoglobin 10.30 g/dL (11.27-16.99); Mean Corpuscular HGB Conc 30.5 g/dL (30-55); Mean Corpuscular Hemoglobin 28.5 pg (27-33); Mean Corpuscular Volume 93.4 fl (82-101); Nucleated Red Blood Cells % 0 %; Platelet Count 305 10^3/cmm (157-399); Red Blood Count 3.62 10^6/uL (3.85-5.65); White Blood Count 11.81 10^3/uL (3.29-11.43)
[2025-01-28 05:35] LABS: Alanine Aminotransferase 8 U/L (0-41); Albumin Level 3.2 g/dL (3.5-5.2); Alkaline Phosphatase 67 U/L (40-130); Anion Gap 14.2 (5-19); Aspartate Amino Transferase 10 U/L (0-40); Blood Urea Nitrogen 13 mg/dL (8-23); Calcium 8.8 mg/dL (8.5-10.5); Carbon Dioxide 29 mmol/L (22-29); Chloride 105 mmol/L (98-107); Creatinine Clr Calc Pharmacy 56.3672; Globulin 1.8 g/dL (1.3-4.6); Glucose 82 mg/dL (65-115); Osmolality Calculated 297 mOsm/kg (285-295); Potassium 4.2 mmol/L (3.5-5.1); Sodium 144 mmol/L (136-145); Total Protein 5.0 g/dL (6.6-8.7)
[2025-01-28 05:37] LABS: Magnesium 1.9 mg/dL (1.7-2.3)
--- NOTE | 2025-01-28 08:16 | P.PN_ITS ---
Subjective 2 Subjective: He is not feeling better. He is coughing, wheezing. Vitals/I&O/Wt Last Vital Signs Temp 98.4 F 01/28/25 07:33 Pulse 79 01/28/25 07:33 Resp 18 01/28/25 07:33 BP 108/54 01/28/25 07:33 Pulse Ox 98 01/28/25 07:33 O2 Del Method Nasal Cannula 01/28/25 07:33 O2 Flow Rate 2 01/28/25 07:33 01/27/25 01/28/25 01/28/25 22:59 06:59 14:59 Intake Total 360 / 1200 Output Total 800 / 1400 650 / 2050 Balance -440 / -200 -650 / -850 Weight last 48 hrs Weight 53.524 kg Weight 52.118 kg Weight 50.349 kg Weight 47.627 kg Physical Exam 2 Narrative: Cough Const: COMMON NORMALS: patient oriented x3 and alert GENERAL APPEARANCE: c ooperative ORIENTATION/CONSCIOUSNESS: Yes awake HENMT: COMMON NORMALS: oropharynx normal Neck/C-Spine: COMMON NORMALS: no JVD Resp: AUSCULTATION: wheezes and diminished lung sounds Cardio: COMMON NORMALS: no JVD, regular rhythm, S1 normal heart sound present, S2 normal heart sound present and No murmurs present (Cardio) RHYTHM: regular rhythm HEART SOUNDS: S1 normal heart sound present and S2 normal heart sound present GI: COMMON NORMALS: Normal to inspection, nondistended, normoactive bowel sounds present, Soft to palpation and non-tender PALPATION: Yes Soft to palpation Extremity: COMMON NORMALS: no joint enlargement and no pedal edema Neuro: COMMON NORMALS: patient oriented x3 and moves all extremities S ENSORIUM/ORIENTATION: Yes alert Skin: COMMON NORMALS: no rashes or lesions noted GENERAL SKIN EXAM: no rashes or lesions noted Data 01/28/25 04:31 01/28/25 04:31 Micro: Microbiology 01/27/25 11:25 Gram Stain - Final Sputum - Expectorated Sputum A&P Assessment and plan (1) COPD with acute exacerbation: Unimproved with bothersome cough, bilateral wheezing, diminished air entry, oxygenation so far maintained on 2 L nasal cannula. Cough productive of green sputum. Severe exacerbation of COPD with purulent sputum, cough, dyspnea. Reviewed sputum culture, moderate WBC, moderate GPC in pairs chains and clusters, few gram-positive rods. Reviewed vitals, CBC, chemistry. Short IV steroid with Solu-Medrol 60 mg every 6 hours. Monitor for risk of gastritis, hyperglycemia, encephalopathy, hypertension. DuoNeb. Schedule antitussive. Add flutter valve. Continue Augmentin, monitor for risk of C. difficile. Continue neb treatments. Add as needed DuoNeb. (2) Acute on chronic respiratory failure with hypoxia and hypercapnia: Continue oxygen support. Wean down as tolerated. (3) Weight loss, unintentional: Unclear etiology. Agree with plans for colonoscopy. Reviewed UA, unremarkable. Possibly secondary to COPD. PDMP PDMP Reviewed: Not Reviewed Attestations 2 Medical Necessity Statement*: Requiring continued admission for assessment management of severe exacerbation of COPD not improved so far and with outpatient treatment. and High MDM includes number and complexity of problems actively addressed during encounter and described risk of complication, morbidity or mortality of management as documented Diagnoses COPD with acute exacerbation J44.1 Acute on chronic respiratory failure with hypoxia and hypercapnia J96.21; J96.22 Weight loss, unintentional R63.4
[2025-01-28] MEDS: metoprolol succinate ER (24 HR) 25 mg Tablet 12.5 MG PO (08:28)
[2025-01-28] MEDS: guaiFENesin-dextromethorphan UDC 10 mL PO ×4 (08:29→20:35)
[2025-01-28] MEDS: methylPREDNISolone sod succ 125 mg/2 mL INJ 60 MG IVP ×3 (08:29→20:28)
[2025-01-29] VITALS (7 sets, daily range): BP systolic 133–142; BP diastolic 67–78; PULSE 83–110; RESP 17–20; TEMP 36.6–36.8; O2SAT 93–95
[2025-01-29] MEDS: methylPREDNISolone sod succ 125 mg/2 mL INJ 60 MG IVP ×3 (02:14→15:08)
[2025-01-29] MEDS: guaiFENesin-dextromethorphan UDC 10 mL PO ×3 (03:51→12:24)
[2025-01-29 06:10] LABS: Magnesium 1.9 mg/dL (1.7-2.3)
[2025-01-29] MEDS: metoprolol succinate ER (24 HR) 25 mg Tablet 12.5 MG PO (08:19)
--- NOTE | 2025-01-29 12:39 | PM.DCS ---
Discharge Providers Date of Admission: 01/26/25 21:40 Date of Discharge: January 29, 2025 Attending Provider at Admission: Александр Proctor MD Attending Provider at Discharge: Kendrick Whalen Primary Care Provider: Ellie Irene MD Diagnoses at Discharge Discharge Diagnosis (1) COPD with acute exacerbation: Status: Acute (2) Acute on chronic respiratory failure with hypoxia and hypercapnia: Status: Acute (3) Weight loss, unintentional: Status: Acute Reason for Visit Reason for Visit: chest pain Brief History: Naren Pritchard is a 69 year old male comes in with 2 to 3 days of coughing wheezing creamy yellow phlegm with COPD exacerbation. He states his chest has been sore for 2 days. He had troponins which were downtrending and negative. Dr. Valiente treated patient with Solu-Medrol and nebulizers and request admission. Patient is chronically on 2 L of oxygen at home. Oxygen saturations here 90% on his usual home oxygen. White count elevated to 15. Patient states he was at 120 pounds last year then lost weight down to 87 now back up to 105. He states he was eating all through the weight loss. He has colonoscopy pending patient denies blood in the urine or blood in the stool. Patient reports he had a colon colonoscopy with multiple polypectomy in the past may be precancerous. 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 Hospital Course Hospital Course She was treated for severe dissipation of COPD including with IV corticosteroids, antibiotic coverage with Augmentin due to history of haemophilus infection as well as empiric azithromycin, received breathing treatments, expectorant and antitussive. Oxygenation stayed stable. Air entry gradually improved and is significantly better compared to prior. Subjectively he is feeling better. Sputum cultures are growing gram-negative rods. He will complete steroid taper with prednisone, antibiotic course with Augmentin. Please follow-up final sputum culture. He requested and is provided a refill on his rescue inhaler. He uses a nebulizer at home and has just filled in a prescription for his nebulizer medication. Discharge options were considered and he at this time is discharging to home and shoulder as per his wishes and coordination with case management once they are ready for him. Continue follow-up regarding unintentional weight loss, colonoscopy. Consideration possibly of advanced COPD. Physical Exam Const: COMMON NORMALS: patient oriented x3 and alert GENERAL APPEARANCE: cooperative ORIENTATION/CONSCIOUSNESS: Yes awake HENMT: COMMON NORMALS: oropharynx normal Neck/C-Spine: COMMON NORMALS: no JVD Resp: COMMON NORMALS: normal respiratory effort OTHER: Minor wheeze. Much improved air entry. Cardio: COMMON NORMALS: no JVD, regular rhythm, S1 normal heart sound present, S2 normal heart sound present and No murmurs present (Cardio) RHYTHM: regular rhythm HEART SOUNDS: S1 normal heart sound present and S2 normal heart sound present GI: COMMON NORMALS: Normal to inspection, nondistended, normoactive bowel sounds present, Soft to palpation and non-tender PALPATION: Yes Soft to palpation Extremity: COMMON NORMALS: no joint enlargement and no pedal edema Neuro: COMMON NORMALS: patient oriented x3 and moves all extremities SENSORIUM/ORIENTATION: Yes alert Skin: COMMON NORMALS: no rashes or lesions noted GENERAL SKIN EXAM: no rashes or lesions noted Discharge Data Studies Completed and Pending Completed Studies During Hospitalization Category Date Time Status XR chest 1V portable [id number] Stat Exams 01/26/25 19:21 Completed Pending at discharge Category Date Time Status MAG [Magnesium] AM LABS Lab 01/30/25 04:00 Ordered Sputum Culture and Gram Stain Stat Lab 01/27/25 11:25 Results Radiology Impressions Chest X-Ray 01/26/25 19:21 IMPRESSION: Hyperinflated but clear lungs. No other acute cardiopulmonary abnormality. Laboratory Results WBC 11.81 10^3/uL (3.29-11.43) H 01/28/25 04:31 RBC 3.62 10^6/uL (3.85-5.65) L 01/28/25 04:31 Hgb 10.30 g/dL (11.27-16.99) L 01/28/25 04:31 Hct 33.8 % (37-53) L 01/28/25 04:31 MCV 93.4 fl (82-101) 01/28/25 04:31 MCH 28.5 pg (27-33) 01/28/25 04:31 MCHC 30.5 g/dL (30-55) 01/28/25 04:31 RDW 12.9 % (12.1-15.1) 01/28/25 04:31 Plt Count 305 10^3/cmm (157-399) 01/28/25 04:31 MPV 9.8 fL (7.4-10.4) 01/28/25 04:31 Neut % (Auto) 77.2 % 01/28/25 04:31 Lymph % (Auto) 13.0 % 01/28/25 04:31 [place] % (Auto) 8.5 % 01/28/25 04:31 Eos % (Auto) 0.3 % 01/28/25 04:31 Baso % (Auto) 0.2 % 01/28/25 04:31 Neut # (Auto) 9.13 10^3/uL (1.8-7.7) H 01/28/25 04:31 Lymph # (Auto) 1.5 10^3/uL (0.8-4.8) 01/28/25 04:31 [place] # (Auto) 1.0 10^3/uL (0.2-0.9) H 01/28/25 04:31 Eos # (Auto) 0.0 10^3/uL (0.0-0.8) 01/28/25 04:31 Baso # (Auto) 0.0 10^3/uL (0.0-0.1) 01/28/25 04:31 Nucleated RBC % (auto) 0 % 01/28/25 04:31 Nucleated RBCs # 0.0 /100WBC 01/28/25 04:31 Sodium 144 mmol/L (136-145) 01/28/25 04:31 Potassium 4.2 mmol/L (3.5-5.1) 01/28/25 04:31 Chloride 105 mmol/L (98-107) 01/28/25 04:31 Carbon Dioxide 29 mmol/L (22-29) 01/28/25 04:31 Anion Gap 14.2 (5-19) 01/28/25 04:31 BUN 13 mg/dL (8-23) 01/28/25 04:31 Creatinine 1.0 mg/dL (0.7-1.2) 01/28/25 04:31 GFR Calculation 74.3 mL/min (90-130) L 01/28/25 04:31 Glucose 82 mg/dL (65-115) 01/28/25 04:31 Calculated Osmolality 297 mOsm/kg (285-295) H 01/28/25 04:31 Calcium 8.8 mg/dL (8.5-10.5) 01/28/25 04:31 Magnesium 1.9 mg/dL (1.7-2.3) 01/29/25 04:38 Iron 21 ug/dL (59-158) L 01/27/25 01:25 TIBC 218 mcg/dl 01/27/25 01:25 % Saturation 9.6 % (20-50) L 01/27/25 01:25 Unsat Iron Binding 197 ug/dL (112-347) 01/27/25 01:25 Total Bilirubin 0.2 mg/dL (0.15-1.2) 01/28/25 04:31 AST 10 U/L (0-40) 01/28/25 04:31 ALT 8 U/L (0-41) 01/28/25 04:31 Alkaline Phosphatase 67 U/L (40-130) 01/28/25 04:31 Troponin T Baseline 16 ng/L (0-15) H 01/26/25 19:00 Troponin T 120 Minute 14.38 ng/L (0-15) 01/26/25 20:36 Delta Troponin T -1.62 ABS# (0-10) L 01/26/25 20:36 Troponin T Hi Sens 6Hr 12.77 ng/L (0-15) 01/27/25 01:25 Troponin T Hi Sens 6Hr Delta -3.23 ng/L (0-12) L 01/27/25 01:25 NT-Pro-B Natriuret Pep 121 pg/mL (0-125) 01/26/25 19:00 Total Protein 5.0 g/dL (6.6-8.7) L 01/28/25 04:31 Albumin 3.2 g/dL (3.5-5.2) L 01/28/25 04:31 Globulin 1.8 g/dL (1.3-4.6) 01/28/25 04:31 Procalcitonin 0.11 ng/mL (0-0.5) 01/27/25 01:25 Urine Color Yellow (Yellow) 01/27/25 01:36 Urine Appearance Clear (CLEAR) 01/27/25 01:36 Urine pH 6.0 (5-7) 01/27/25 01:36 Ur Specific [place] 1.017 (1.005-1.030) 01/27/25 01:36 Urine Protein Negative (Negative) 01/27/25 01:36 Urine Glucose (UA) Negative (Normal) 01/27/25 01:36 Urine Ketones Negative (Negative) 01/27/25 01:36 Urine Blood Negative (Negative) 01/27/25 01:36 Urine Nitrate Negative (Negative) 01/27/25 01:36 Urine Bilirubin Negative (Negative) 01/27/25 01:36 Urine Urobilinogen 1.0 mg/dL (Negative) 01/27/25 01:36 Ur Leukocyte Esterase Negative (Negative) 01/27/25 01:36 Urine RBC 0-2 /hpf (0-2) 01/27/25 01:36 Urine WBC 0-5 /hpf (0-5) 01/27/25 01:36 Ur Squamous Epith Cells 0-5 /hpf (0-5) 01/27/25 01:36 Amorphous Sediment Not Reportable 01/27/25 01:36 Urine Bacteria None seen /hpf (NONE) 01/27/25 01:36 Hyaline Casts 0.40 /lpf 01/27/25 01:36 Influenza A (PCR) Negative (Negative) 01/26/25 19:00 Influenza Type B (PCR) Negative (Negative) 01/26/25 19:00 RSV (PCR) Negative (Negative) 01/26/25 19:00 SARS-CoV-2 (PCR) Negative (Negative) 01/26/25 19:00 Vitals Last Vital Signs Temp 98.2 F 01/29/25 11:25 Pulse 110 H 01/29/25 11:25 Resp 18 01/29/25 11:25 BP 133/67 01/29/25 11:25 Pulse Ox 95 01/29/25 11:25 O2 Del Method Nasal Cannula 01/29/25 11:25 O2 Flow Rate 2 01/29/25 11:25 Discharge Plan Discharge Patient Disposition: Home Condition: Stable Prescriptions: New amoxicillin-pot clavulanate 875-125 mg Tablet 1 tab PO BID Qty: 10 0RF dextromethorphan-guaifenesin 10-100 mg/5 mL Syrup 10 ml PO Q4H Qty: 237 1RF prednisone 20 mg tablet See Rx Instructions .ROUTE .COMPLEX Qty: 20 0RF Rx Instructions: 3 tab daily for 3 days, then 2 tab for 3 days, then 1 tab for 3 days, then 1/2 tab for 4 days. Continued isosorbide mononitrate 30 mg tablet extended release 24 hr 30 mg PO DAILY Qty: 90 3RF metoprolol succinate 25 mg tablet extended release 24 hr 12.5 mg PO DAILY Qty: 45 3RF nitroglycerin 0.4 mg tablet, sublingual 0.4 mg sublingual Q5M PRN (Reason: chest pain) Qty: 25 2RF Rx Instructions: do not exceed 3 doses per episode aspirin 81 mg Tablet,Delayed Release (Dr/Ec) 81 mg PO DAILY melatonin 5 mg Tablet 10 mg PO DAILY amlodipine 5 mg tablet 5 mg PO DAILY guaifenesin 400 mg Tablet 400 mg PO TID omeprazole 20 mg Tablet,Delayed Release (Dr/Ec) 20 mg PO BID Breztri Aerosphere 160-9-4.8 mcg/actuation HFA aerosol inhaler 2 inh inhalation BID Qty: 10.7 1RF ipratropium-albuterol 0.5 mg-3 mg(2.5 mg base)/3 mL Solution For Nebulization 3 ml INHALATION Q6H MDD COPD PRN (Reason: Shortness Of Breath Or Wheezing) trazodone 150 mg Tablet 150 mg PO BEDTIME docusate sodium 100 mg Capsule 100 mg PO BID PRN (Reason: Constipation) cholecalciferol (vitamin D3) [Vitamin D3] 25 mcg (1,000 unit) Capsule 25 mcg PO DAILY roflumilast 500 mcg Tablet 500 mcg PO DAILY albuterol sulfate 90 mcg/actuation HFA aerosol inhaler 2 inh inhalation Q6H PRN (Reason: shortness of breath or wheezing) Qty: 8.5 6RF Discontinued prednisone 20 mg Tablet 40 mg PO DAILY Qty: 4 0RF Rx Instructions: start on 11/26/24 levofloxacin 750 mg Tablet 750 mg PO DAILY@0600 Qty: 5 0RF Discharge Orders: Discharge Order (Routine); Ordered 01/29/25 Ordered By: Kendrick Whalen Referrals: Ellie Irene MD [Primary Care Provider, Family Practice] - 4-7 days Discharge Diet: Cardiac Discharge Activity: Oxygen as instructed Patient Instructions: Prednisone (By mouth), Amoxicillin/Clavulanate Potassium (By mouth), COPD (Chronic Obstructive Pulmonary Disease) (GEN), COPD Stoplight, Opioid Safety, Patient Portal & Sarah Instructions Activity Restrictions/Additional Instructions: Complete antibiotic and corticosteroid taper. You are also given a refill on the rescue inhaler. Continue flutter valve to help bring up phlegm. Continue follow-up with your lung specialist. Seek medical attention in case of worsening or new concerning symptoms. Discharge Attestations Time Spent in Discharge Care*: greater than 30 min Status at Discharge: Cognitive status at discharge: cognitively intact, Behavioral status at discharge: cooperative, Quality Metrics Clinical Quality Measures [ No reported AMI, CVA or VTE this stay] Coding Level of Care Code 55010 Total time (in minutes) for Discharge: 40 Diagnoses COPD with acute exacerbation J44.1 Acute on chronic respiratory failure with hypoxia and hypercapnia J96.21; J96.22 Weight loss, unintentional R63.4
--- NOTE | 2025-01-29 15:45 | PC.NURSE ---
Pt's brother came with pt home oxygen. Pt left with brother. All lines removed and education given and questions answered.
== END 2025-01-29 15:47 | disposition home or self-care (01) ==
LOC: ER 21:39 → MEDSURG 21:55
PROVIDERS: Student in an Organized Health Care Education/Training Program; Admitting Provider Internal Medicine; Emergency Provider Emergency Medicine; PCP Family Medicine; Visit Provider Internal Medicine
DX: J96.21 Acute and chronic respiratory failure with hypoxia (principal); J96.22 Acute and chronic respiratory failure with hypercapnia; J44.1 Chronic obstructive pulmonary disease with (acute) exacerbation; R63.4 Abnormal weight loss; Z68.20 Body mass index [BMI] 20.0-20.9, adult; Z79.82 Long term (current) use of aspirin; K21.9 Gastro-esophageal reflux disease without esophagitis; Z99.81 Dependence on supplemental oxygen; I10 Essential (primary) hypertension; F32.A Depression, unspecified; F17.210 Nicotine dependence, cigarettes, uncomplicated
CPT/HCPCS: 36415; 71045; 80053; 81001; 83540; 83550; 83735; 83880; 84145; 84484; 85025; 87070; 87077; 87186; 87205; 87637; 93005; 94640; 96372; 96374; 96375; 96376; 99285; G0378; J1100; J1650; J2405; J2919; J7626; J9999; Q0144

== ENCOUNTER 2025-07-08 21:01 | Observation (INO) | payer OTHER, SELFPAY ==
--- OUTSIDE RECORDS SUMMARY | 2016-08-25 07:00 | XMS_ITS | Continuity of Care Document ---
Author Organization [facility] Address [address] [place] [address] Phone Care Team Providers Care Pulp Piler Name Role Phone Services, Substance Abuse Unavailable Damian Doll Unavailable Unavailable Procedures Procedure Date AOD Screening; Intake Advance Directives Directive Yes / No Effective Date File Name No Information Encounters Encounter Description Practice Location Reason(s) For Visit Diagnoses Date Provider Providers Copied on Encounter [facility], [address] [place] [address], [id number], tel:[phone] JST AOD No Information Services Substance Abuse. [address] [place] [address], [address]. tel:[phone] Consulting Provider: Damian Hernandez, [address] [place] [address], [address]. Family History Family Member Type Diagnosis Age At Onset No Information Payers Payer name Insurance type Covered alliance party ID Authoriza tion(s) A[facility] Drug MediCal 11 [id number] Social History Type Description Quantity Date Captured [...]
--- OUTSIDE RECORDS SUMMARY | 2018-10-28 09:26 | XMS_ITS | Continuity of Care Document ---
Author Organization [facility] [place] Address [address] [place] [address] Phone Care Team Providers Care Wafer Fab Operator Name Role Phone Abraham Bower MD Unavailable [...] [facility], [address], [place], [address], [place] tel:[phone] [facility] No Information Sathish Rosario. [address], [place], [id number], [place]. tel:[phone] [facility], [address], [place], [address], [place] tel:[phone] [facility] Headaches (chief complaint) New daily persistent headache Sathish Rosario. [address], [place], [place], [id number], [place]. tel:[phone] [facility], [address], [place], [address], [place] tel:[phone] [facility] Headaches (chief complaint)A bnormal CT (chief complaint) New daily persistent headacheAbnormal brain scan Sathish Rosario. [address], [place], [place], [id number], [place]. tel:[phone] Family History Family Member Type Diagnosis Age At Onset Father Problem (finding) Multiple medic al problems (Cause Of ) Mother Problem (finding) Unknown cause (Cause Of ) Payers Payer name Insurance type Covered constitution party ID Tiffambika stephanielilian(s) [facility] () [id number] Medicaid MC [id number] Social History Type Description Quantity Date Captured [...] he had his ESR done at the [facility] in [place], [place] but I do not have the [...]
--- OUTSIDE RECORDS SUMMARY | 2024-07-30 07:50 | XMS_ITS ---
Author Organization [facility] Address [address] [place] [address] Care Team Providers Care Drawbench Operator Helper Name Role Phone Judith Lieberman APRN Primary Care Provider Unav ailAngel Luis Alcocer Unavailable [phone] [place], [place] Unavailable Unavailable REASON FOR VISIT [phone] Encounters Encounter Location Date Provider Diagnosis [facility] [address] [place] [address] [place] [address] 07/30/2024 Angel Luis Sebastian Plan Of Treatment Next Appt Details Provider Name:Angel Luis Sebastian, 07/17/2025 11:40:00 AM, [address] [place] [address] [place], [address], Progress Notes * CHI KEYS ADOB:1955 (69 yo M)Acc No.[id number]:07/30/2024 Progress Notes Patient: CHI MCGINNIS Provider: Jalil Sebastian MD :1955 A ge:68 Y S ex:Male Date:07/30/2024 Address:[address] [place] [phone] Pcp:Judith Lieberman APRN Subjective: * Chief Complaints: * 6 [id number] Care Plan Details* * Electronic signature of Evelyn Sebastian MD on 07/08/2025 at 09:51 PM LABORER CARPENTRY DOCK Sign off status: Pending * Provider: Jalil Sebastian MD Date: 1 Generated for Gabrielle mcclendon/Jourdan/Katsmitting on: 1 09/08/2024 09:51 PM LABORER CARPENTRY DOCK
--- OUTSIDE RECORDS SUMMARY | 2024-08-16 05:30 | XMS_ITS ---
Author Organization [facility] Address [address] [place] [address] Care Team Providers Care Solar Energy Sales Specialist Name Role Phone Judith Lieberman APRN Primary Care Provider Unav ailAngel Luis Alcocer Unavailable [phone] [place], [place] Unavailable Unavailable REASON FOR VISIT [phone] Encounters Encounter Location Date Provider Diagnosis [facility] [address] [place] [address] [place] [address] 08/16/2024 Angel Luis Sebastian Plan Of Treatment Next Appt Details Provider Name:Angel Luis Sebastian, 07/17/2025 11:40:00 AM, [address] [place] [address] [place], [address], Progress Notes * CHI KEYS ADOB:1955 (69 yo M)Acc No.[id number]:08/16/2024 Progress Notes Patient: CHI MCGINNIS Provider: Jalil Sebastian MD :1955 A ge:68 Y S ex:Male Date:08/16/2024 Address:[address] [place] [phone] Pcp:Judith Lieberman APRN Subjective: * Chief Complaints: * 6 [id number] Care Plan Details* * Electronic signature of Evelyn Sebastian MD on 07/08/2025 at 09:51 PM ORACLE APPLICATIONS ANALYST Sign off status: Pending * Provider: Jalil Sebastian MD Date: 0 08/16/2024 Generated for Gabrielle mcclendon/Jourdan/Katsmitting on: 1 09/08/2024 09:51 PM ORACLE APPLICATIONS ANALYST
--- OUTSIDE RECORDS SUMMARY | 2024-08-22 05:30 | XMS_ITS ---
Author Organization [facility] Address [address] [place] [address] Care Team Providers Care Director Safety Council Name Role Phone Judith Lieberman APRN Primary Care Provider Unav ailAngel Luis Alcocer Unavailable [phone] [place] Unavailable Unavailable REASON FOR VISIT [phone] Encounters Encounter Location Date Provider Diagnosis [facility] [address] [place] [address] [place] [address] 08/22/2024 Angel Luis Sebastian Plan Of Treatment Next Appt Details Provider Name:Angel Luis Sebastian, 07/17/2025 11:40:00 AM, [address] [place] [address] [place], [address], Progress Notes * CHI KEYS ADOB:1955 (69 yo M)Acc No.[id number]:08/22/2024 Progress Notes Patient: CHI MCGINNIS Provider: Jalil Sebastain MD :1955 A ge:68 Y S ex:Male Date:08/22/2024 Address:[address] [place] [phone] Pcp:Judith Lieberman APRN Subjective: * Chief Complaints: * [id number] Care Plan Details* * Electronic signature of Evelyn Sebastian MD on 07/08/2025 at 09:[address] FOREMAN Sign off status: Pending * Provider: Jalil Sebastian MD Date: 0 08/22/2024 Generated for Gabrielle mcclendon/Jourdan/Katsmitting on: 1 09/08/2024 09:[address] FOREMAN
--- OUTSIDE RECORDS SUMMARY | 2024-12-10 07:30 | XMS_ITS ---
Author Organization [facility] Address [address] [place] [address] Care Team Providers Care Rolled Oats Mill Operator Name Role Phone Judith Lieberman APRN Primary Care Provider Unav ailable Angel Luis Sebastian Unavailable [phone] [place], [place] Unavailable Unavailable Encounters Encounter Location Date Provider Diagnosis [facility] [address] [place] [address] [place] [address] 12/10/2024 Angel Luis Sebastian Plan Of Treatment Next Appt Details Provider Name:Angel Luis Ibarraoscar, 07/17/2025 11:40:00 AM, [address] [place] [address] DR FL[address]ESR [address] [place] [address], [address], Progress Notes * CHI KEYS ADOB:1955 (69 yo M)Acc No.[id number]:12/10/2024 Progress Notes Patient: CHI MCGINNIS Provider: Jalil Seabstian MD :1955 A ge:69 Y S ex:Male Date:12/10/2024 Address:[address] [place], [place] [phone] Pcp:Judith Lieberman APRN Care Plan Details* * Electronic signature of Evelyn Sebastian MD on 07/08/2025 at 09:49 PM MACHINE LEARNING INTERN Sign off status: Pending * Provider: Jalil Sebastian MD Date: 0 12/10/2024 Generated for Kaleyi ng/Fagayatrig/eTransmitting on: 1 09/08/2024 09:49 PM MACHINE LEARNING INTERN
--- OUTSIDE RECORDS SUMMARY | 2024-12-17 08:30 | XMS_ITS ---
Author Organization [facility] Address [address] [facility] [place] [address] Care Team Providers Care Screw Machine Operator Single Spindle Name Role Phone Judith Lieberman APRN Primary Care Provider Angel Luis Shields Unavailable [phone] [place], [place] Unavailable Unavailable REASON FOR VISIT Shortness of breath Encounters Encounter Location Date Provider Diagnosis [facility] [address] [place] [address] [place] [address] 12/17/2024 Angel Luis Jaz Solitary pulmonary nodule R91.1 ; Stage 3 severe COPD by GOLD classification J44.9 ; Chronic hypoxic respiratory failure J96.11 and Nicotine dependence, cigarettes, in remission F17.211 Assessments Encounter Date Diagnosis (ICD Code) Assessment Notes Treatment Notes Treatment Clinical Notes Section Notes 12/17/2024 Solitary pulmonary nodule (ICD-10 - R91.1) Stable size nodule. Repeat chest CT in 3 months. 12/17/2024 Stage 3 severe COPD by GOLD classification (ICD-10 - J44.9) -Continue Albuterol Neb as needed. -Continue Breztri -Little benefit from Trelegy. History of Combivent. 12/17/2024 Chronic hypoxic respiratory failure (ICD-10 - J96.11) - continue oxygen use to maintain a saturation between 88-92% 12/17/2024 Nicotine dependence, cigarettes, in remission (ICD-10 - F17.211) Smoked 3 packs a day for 40 years before cutting down to half a pack a day in the last 5 years. He officially quit smoking two months ago. 12/17/2024 Zohra Fung, Alexia Hobbs, am scribing for, and in the presence of Dr. Angel Luis Sebastian. I, Dr. Angel Luis Sebastian, personally performed the services described in this documentation, as scribed by Alexia Hobbs in my presence, and it is both accurate and complete. Plan Of Treatment Treatment Notes Assessment Notes Solitary pulmonary nodule Stable size no dule. Repeat chest CT in 3 months. Stage 3 severe COPD by GOLD classificati on -Continue Albuterol Neb as needed. -Continue Breztri -Little benefit from Trelegy. History of Combivent. Chronic hypoxic respiratory failure - co ntinue oxygen use to maintain a saturation between 88-92% Nicotine dependence, cigarettes, in ankur ssion Smoked 3 packs a day for 40 years before cutting down to half a pack a day in the last 5 years. He officially quit smoking two months ago. Next Appt Details Provider Name:Angel Luis Fung Staceyoscar, 07/17/2025 11:40:00 AM, [address] [place] [address] [place], [address], History and Physical Notes * HPI (History of Present Illness) Category Sub-Category Detail Notes Category Not es Provider Note The patient is a 68-year-old male with abnormal chest CT here for a follow-up visit. Patient finally quit cigarette smoking 2 months ago. I reviewed his PET/CT images showing no significant uptake in the nodule. There is very mild uptake if any in the right upper lobe nodule. He still uses his rescue inhaler about twice a day. -Last seen September 10, 2024; 3 mth w/ CT -CT Examination Category Sub-Category Detail Notes Category Not es General Examination GENERAL APPEARANCE: awake, n ot in respiratory distress, came in a wheelchair EYES: extraocular muscles intact EARS: normal hearing HEART: no murmurs, rubs, ga llops, no edema LUNGS: no wheezes, rales, r honchi, diminished breath sounds throughout NEUROLOGIC: alert, oriented SKIN: warm and moist PSYCH: normal mood with cailin ropriate affect Progress Notes * CHI KEYS ADOB:1955 (69 yo M)Acc No.[id number]:12/17/2024 Progress Notes Patient: Shwetha GERSONCHI Provider: Jalil Sebastian MD :1955 A ge:69 Y S ex:Male Date:12/17/2024 Address:[address] [place], [place] [phone] Pcp:Judith Lieberman APRN Subjective: * Chief Complaints: * S hortness of breath * HPI: Kristofer lopez Note: The patient is a 68-year-old male with abnormal chest CT here for a follow-up visit. Patient finally quit cigarette smoking 2 months ago. I reviewed his PET/CT images showing no significant uptake in the nodule. There is very mild uptake if any in the right upper lobe nodule. He still uses his rescue inhaler about twice a day. -Last seen September 10, 2024; 3 mth w/ CT -CT. * ROS: G eneral - Multi System: Constitutional f atigue. R espiratory s hortness of breath. Objective: * Examination: G eneral Examination: GENERAL APPEARANCE: a wake, not in respiratory distress, came in a wheelchair. EYES: e xtraocular muscles intact. EARS: n ormal hearing. SKIN: w arm and moist. HEART: n o murmurs, rubs, gallops, no edema. LUNGS: n o wheezes, rales, rhonchi, diminished breath sounds throughout. NEUROLOGIC: a lert, oriented. PSYCH: n ormal mood with appropriate affect. ? Assessment: * Assessment: 1. S olitary pulmonary nodule - R91.1 (Primary) 2 . S tage 3 severe COPD by GOLD classification - J44.9 3 . C hronic hypoxic respiratory failure - J96.11? 4. N icotine dependence, cigarettes, in remission - F17.211 Plan: * Treatment: 2. S tage 3 severe COPD by GOLD classification Notes: -Continue Albuterol Neb a s needed. -Continue Breztri -Little benefit from Trelegy. History of Combivent. 3. C hronic hypoxic respiratory failure Notes: - continue oxygen use to maintain a saturation between 88-92% 4. N icotine dependence, cigarettes, in remission Notes: Smoked 3 packs a day for 40 years before cutting down to half a pack a day in the last 5 years. He officially quit smoking two months ago. 5. O thers Clinical Notes:IAlexia, am scribing for, and in the presence of Dr. Angel Luis Sebastian. I, Dr. Angel Luis Sebastian, personally performed the services described in this documentation, as scribed by Alexia Hobbs in my presence, and it is both accurate and complete. Care Plan Details* * Electronic signature of Evelyn Sebastian MD on 07/08/2025 at 09:48 PM COMMODITY SUPERVISOR Sign off status: Pending * Provider: Jalil Sebastian MD Date: 0 12/17/2024 Generated for Gabrielle mcclendon/Jourdan/eTransmitting on: 1 09/08/2024 09:48 PM COMMODITY SUPERVISOR
[2025-07-08] VITALS (9 sets, daily range): BP systolic 105–133; BP diastolic 58–72; PULSE 73–87; RESP 15–17; TEMP 36.5; O2SAT 94–97; BMI 19.6
--- NOTE | 2025-07-08 21:03 | ECG_ITS ---
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 Measurements Intervals [place] Rate: 75 P: 80 KS: 177 QRS: 84 QRSD: 84 T: 77 QT: 357 QTc: 401 Interpretive Statements SINUS RHYTHM Compared to ECG 01/27/2025 01:26:32 No significant changes Electronically Signed On 07-10-2025 22:41:22 [employer] by Gideon Granados M.D. [email or web address]
--- NOTE | 2025-07-08 21:03 | XRR_ITS ---
PROCEDURE INFORMATION: Exam: XR Chest Exam date and time: 07/08/2025 9:19 PM Age: 69 years old Clinical indication: Pain; Chest pressure; Additional info: Chest pain TECHNIQUE: Imaging protocol: Radiologic exam of the chest. Views: 1 view. COMPARISON: CR XR chest 1V portable [id number] 01/26/2025 7:37 PM FINDINGS: Lungs: Hyperinflation, nonspecific although commonly COPD. Questionable infiltrate involving the right upper lobe, consider CT for further characterization. Pleural spaces: Unremarkable. No pleural effusion. No pneumothorax. Heart/Mediastinum: Unremarkable. No cardiomegaly. Bones/joints: Unremarkable. XR/XR chest 1V portable [id number] IMPRESSION: Questionable infiltrate involving the right upper lobe, consider CT for further characterization.
--- NOTE | 2025-07-08 21:09 | W.ED.CHESTPA ---
HPI - Chest Pain General: Chief Complaint: Chest Pain Stated Complaint: cp Time Seen by Provider: 07/08/25 21:02 History of Present Illness: 69-year-old man with a history of COPD, chronic hypoxemic respiratory failure on 2 L nasal cannula. He says at all times, hypertension, depression, and hypertension who presents to the emergency room with chest pain. He said he had a central pressure. This been going on for 3 days and has taken multiple nitroglycerin. He says he feels a little bit more short of breath he does have some wheeze on exam. No altered mental status. No focal motor deficits. No known fevers Related Data Home Medications ?Medication ?Instructions ?Recorded ?Confirmed aspirin 81 mg tablet,delayed 81 mg PO DAILY 11/27/19 01/27/25 release amlodipine 5 mg tablet 5 mg PO DAILY 11/23/24 01/27/25 guaifenesin 400 mg tablet 400 mg PO TID 11/23/24 01/27/25 melatonin 5 mg tablet 10 mg PO DAILY 11/23/24 01/27/25 omeprazole 20 mg tablet,delayed 20 mg PO BID 11/23/24 01/27/25 release cholecalciferol (vitamin D3) 25 25 mcg PO DAILY 01/27/25 01/27/25 mcg (1,000 unit) capsule (Vitamin D3) docusate sodium 100 mg capsule 100 mg PO BID PRN Constipation 01/27/25 01/27/25 ipratropium 0.5 mg-albuterol 3 mg 3 ml inhalation Q6H PRN Shortness 01/27/25 01/27/25 (2.5 mg base)/3 mL nebulization Of Breath Or Wheezing soln roflumilast 500 mcg tablet 500 mcg PO DAILY 01/27/25 01/27/25 trazodone 150 mg tablet 150 mg PO BEDTIME 01/27/25 01/27/25 Previous Rx's ?Medication ?Instructions ?Recorded isosorbide mononitrate 30 mg 30 mg PO DAILY #90 tabs 05/23/24 tablet,extended release 24 hr metoprolol succinate 25 mg 12.5 mg (1/2 x 25 mg) PO DAILY #45 11/16/24 tablet,extended release 24 hr tabs budesonide 160 mcg-glycopyr 9 2 inh inhalation BID #10.7 grams 11/25/24 mcg-formot 4.8 mcg/actuation HFA inhaler (Breztri Aerosphere) albuterol sulfate 90 mcg/actuation 2 inh inhalation Q6H PRN shortness 01/29/25 aerosol inhaler of breath or wheezing #8.5 grams amoxicillin 875 mg-potassium 1 tab PO BID #10 tabs 01/29/25 clavulanate 125 mg tablet dextromethorphan-guaifenesin 10 10 ml PO Q4H #237 mL 01/29/25 mg-100 mg/5 mL oral syrup prednisone 20 mg tablet See Rx Instructions .Route 01/29/25 .COMPLEX #20 tabs nitroglycerin 0.4 mg sublingual 0.4 mg sublingual Q5M PRN chest 04/18/25 tablet pain #25 tabs Allergies Allergy/AdvReac Type Severity Reaction Status Date / Time No Known Allergies Allergy Verified 08/02/24 22:45 Review of Systems Narrative: Constitutional symptoms: Negative except as documented in HPI. Skin symptoms: Negative except as documented in HPI. Eye symptoms: Negative except as documented in HPI. ENMT symptoms: Negative except as documented in HPI. Respiratory symptoms: Negative except as documented in HPI. Cardiovascular symptoms: Negative except as documented in HPI. Gastrointestinal symptoms: Negative except as documented in HPI. Genitourinary symptoms: Negative except as documented in HPI. Musculoskeletal symptoms: Negative except as documented in HPI. Neurologic symptoms: Negative except as documented in HPI. Psychiatric symptoms: Negative except as documented in HPI. Endocrine symptoms: Negative except as documented in HPI. PFSH ED PFSH: Medical History (Updated 07/08/25 @ 23:20 by Yari Chester MD) Weight loss, unintentional Essential hypertension History of migraine headaches Vitamin D deficiency Hepatitis C Treatment status unknown Hx of colonic polyps Sessile on colonoscopy 02/16 Depression GERD (gastroesophageal reflux disease) Peptic ulcer disease Gastric ulcer on EGD 02/16 COPD (chronic obstructive pulmonary disease) Surgical History History of colonoscopy with polypectomy 2019 Status post excision of lipoma (~01/2019) Hx of appendectomy Family History Father Tuberculosis Denies family history of Diabetes Cancer Social History (Updated 01/26/25 @ 22:12 by Александр Proctor MD) Smoking and tobacco/nicotine status: former use of tobacco/nicotine Quit status (tobacco/nicotine): has quit using Year quit tobacco: 2023 Former quit date comment: Was hospitalized for COPD went home and just never smoked again Second hand smoke exposure: No Alcohol intake: current Alcohol intake frequency: holidays/special occasions only Substance/Drug Use: unknown Additional social history: 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 Alcohol is none illicits none tobacco now also none after smoking 1 to 1-1/2 packs/day for 42 years lives with his and his nephew. 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 Skin: Warm, dry. Head: Normocephalic, atraumatic. Neck: Supple, trachea midline. Eye: Extraocular movements are intact. Ears, nose, mouth and throat: Oral mucosa moist. Cardiovascular: Regular rate and rhythm, Normal peripheral perfusion. Respiratory: coarse, scattered wheeze, mild increased wob. tachypnea, breath sounds are equal, Symmetrical chest wall expansion. Gastrointestinal: Soft, Nontender, Non distended Musculoskeletal: Normal ROM, no deformity. Neurological: Alert and oriented, No focal neurological deficit observed. Psychiatric: Cooperative, appropriate mood & affect. Course Vital Signs: Vital signs: Vital Signs Temperature 97.7 F 07/08/25 21:01 Pulse Rate 77 07/08/25 22:30 Respiratory Rate 17 07/08/25 22:20 Blood Pressure 110/66 07/08/25 22:13 Pulse Oximetry 96 07/08/25 22:20 Oxygen Delivery Me thod Nasal Cannula 07/08/25 22:20 Oxygen Flow Rate 2 07/08/25 22:20 MDM - Chest Pain Medical Decision Making Medical decision making Patient's reason for coming to the emergency room: Social determinants: I reviewed the patient's medical record. 69-year-old man with a history of COPD, chronic hypoxemic respiratory failure on 2 L nasal cannula at all times, hypertension, depression, and hypertension. Patient says he had a heart attack in his early 50s but has not had stents. This is not listed in his chart. Last admission to the hospital was in January for COPD exacerbation I reviewed the patient's current home meds DOPEMAN shows no narcotics. He is not on any anticoagulation. He says he has a history of atrial fibrillation. Alternate historians: None Differential diagnosis for patient with chest pain includes but is not limited to and based on the above HPI, review of systems and physical exam: Pneumonia. unstable angina. angina. Acute coronary syndrome / CA. Pulmonary embolism. Costochondritis / musculoskeletal. Pleurisy. Pericarditis. Esophageal spasm. Pancreatitis. Cholecystitis. Orders placed to evaluate differential diagnosis based on the above differential, HPI and physical exam Chest x-ray: Discern for possible early infiltrate in the right lower lobe. This was reviewed and interpreted by myself the emergency room physician. I also reviewed the radiology report. EKG: Time 2110. Rate 75. Normal sinus rhythm, No ST-T changes, no ectopy, normal ND & QRS intervals, This was reviewed and interpreted by myself the ER physician at 2113 Lab Review: Laboratory results were reviewed and interpreted by myself the emergency room physician. No leukocytosis. No anemia. No renal failure. Initial troponin is mildly elevated at 28 but this is a bit over his baseline. Assessment of risk: Level of risk: High risk patient. Older, multiple comorbidities. Hospitalization considerations: Patient is being admitted admitted to observation for chest pain and a COPD exacerbation Clinical decision support: Heart score of 6. Recommends observation. Reexamination: Wheezing is a bit better. No increased work of breathing at this time. No altered mental status. Stable on his home 2 L nasal cannula. Consultation: I spoke with Dr. Zaidi who is on-call for the hospital service who agrees to admission. Assessment and plan: Chest pain COPD with acute exacerbation Chronic hypoxemic respiratory failure Possible pneumonia ?IV Solu-Medrol, multiple updrafts and Levaquin -I discussed the patient with the hospitalist on-call who is admitting the patient. - Discussed findings and plan with patient. Answered any questions. - All laboratory values were reviewed and interpreted personally by myself, the ER physician - All imaging was reviewed and interpreted personally by myself, the ER physician. - Evaluation and treatment of this problem were appropriate in the emergency setting Lab Data 07/08/25 21:20 07/08/25 21:20 Radiology Impressions Chest X-Ray 07/08/25 21:03 IMPRESSION: Questionable infiltrate involving the right upper lobe, consider CT for further characterization. Laboratory Results WBC 8.22 10^3/uL (3.29-11.43) 07/08/25 21:20 RBC 3.87 10^6/uL (3.85-5.65) 07/08/25 21:20 Hgb 10.30 g/dL (11.27-16.99) L 07/08/25 21:20 Hct 34.0 % (37-53) L 07/08/25 21:20 MCV 87.9 fl (82-101) 07/08/25 21:20 MCH 26.6 pg (27-33) L 07/08/25 21:20 MCHC 30.3 g/dL (30-55) 07/08/25 21:20 RDW 12.6 % (12.1-15.1) 07/08/25 21:20 Plt Count 560 10^3/cmm (157-399) H 07/08/25 21:20 MPV 9.0 fL (7.4-10.4) 07/08/25 21:20 Neut % (Auto) 64.5 % 07/08/25 21:20 Lymph % (Auto) 16.4 % 07/08/25 21:20 [place] % (Auto) 12.8 % 07/08/25 21:20 Eos % (Auto) 4.0 % 07/08/25 21:20 Baso % (Auto) 1.1 % 07/08/25 21:20 Neut # (Auto) 5.30 10^3/uL (1.8-7.7) 07/08/25 21:20 Lymph # (Auto) 1.4 10^3/uL (0.8-4.8) 07/08/25 21:20 [place] # (Auto) 1.1 10^3/uL (0.2-0.9) H 07/08/25 21:20 Eos # (Auto) 0.3 10^3/uL (0.0-0.8) 07/08/25 21:20 Baso # (Auto) 0.1 10^3/uL (0.0-0.1) 07/08/25 21:20 Nucleated RBC % (auto) 0 % 07/08/25 21:20 Nucleated RBCs # 0.0 /100WBC 07/08/25 21:20 PT 13.50 SECONDS (12.1-14.9) 07/08/25 21:20 INR 0.97 (0.8-1.2) 07/08/25 21:20 APTT 36.6 SECONDS (23.9-36.7) 07/08/25 21:20 Sodium 140 mmol/L (136-145) 07/08/25 21:20 Potassium 4.2 mmol/L (3.5-5.1) 07/08/25 21:20 Chloride 99 mmol/L (98-107) 07/08/25 21:20 Carbon Dioxide 29 mmol/L (22-29) 07/08/25 21:20 Anion Gap 16.2 (5-19) 07/08/25 21:20 BUN 11 mg/dL (8-23) 07/08/25 21:20 Creatinine 0.9 mg/dL (0.7-1.2) 07/08/25 21:20 GFR Calculation 83.9 mL/min (90-130) L 07/08/25 21:20 Glucose 111 mg/dL (65-115) 07/08/25 21:20 Calculated Osmolality 290 mOsm/kg (285-295) 07/08/25 21:20 Calcium 9.4 mg/dL (8.5-10.5) 07/08/25 21:20 Total Bilirubin 0.2 mg/dL (0.15-1.2) 07/08/25 21:20 AST 12 U/L (0-40) 07/08/25 21:20 ALT 10 U/L (0-41) 07/08/25 21:20 Alkaline Phosphatase 82 U/L (40-130) 07/08/25 21:20 Troponin T Baseline 28 ng/L (0-15) H 07/08/25 21:20 NT-Pro-B Natriuret Pep 168 pg/mL (0-125) H 07/08/25 21:20 Total Protein 6.0 g/dL (6.6-8.7) L 07/08/25 21:20 Albumin 3.4 g/dL (3.5-5.2) L 07/08/25 21:20 Globulin 2.6 g/dL (1.3-4.6) 07/08/25 21:20 Lipase 33 U/L (13-60) 07/08/25 21:20 All radiology interpretation(s) finalized by discharge Clincial Decision Support The following clinical decision support tools were used to aid in care of the patient HEART Score -> History: Moderately Suspicious, EKG: Normal, Age: 65 or more yrs, Risk Factors: >/=3 Risk Factors, Troponin: Baseline Trop 16-45 ng/L. Resulting HEART Score: 6. Discharge Plan Discharge Patient Disposition: Placed in Observation Clinical Impression: Chest pain, COPD with acute exacerbation, Chronic hypoxemic respiratory failure Coding Level of Care Code ED [facility] for [facility] Fwd Heart Score HEART Score Components History: Moderately Suspicious EKG: Normal Age: 65 or more yrs Risk Factors: >/=3 Risk Factors Troponin: Baseline Trop 16-45 ng/L HEART Score RESULT HEART Score: 6
--- NOTE | 2025-07-08 21:16 | PC.NURSE ---
PT WAS GIVEN ASPIRIN IN ROUTE PROVIDER STATED TO CANCEL ORDER
[2025-07-08 21:40] LABS: Hematocrit 34.0 % (37-53); Hemoglobin 10.30 g/dL (11.27-16.99); Mean Corpuscular HGB Conc 30.3 g/dL (30-55); Mean Corpuscular Hemoglobin 26.6 pg (27-33); Mean Corpuscular Volume 87.9 fl (82-101); Nucleated Red Blood Cells % 0 %; Platelet Count 560 10^3/cmm (157-399); Red Blood Count 3.87 10^6/uL (3.85-5.65); White Blood Count 8.22 10^3/uL (3.29-11.43)
[2025-07-08] MEDS: methylPREDNISolone sod succ 125 mg/2 mL INJ IVP (21:47)
--- OUTSIDE RECORDS SUMMARY | 2025-07-08 21:51 | XMS_ITS | Clinical Summary ---
Author Organization [facility] Address [address] [place] [address] Phone Care Team Providers Care School Child Care Attendant Name Role Phone Ellie Walker MD Primary Care Provider [phone] Allergies Active Allergy Reactions Criticality Noted Date Comments Megestrol Unknown 04/03/2025 Medications aspirin (ECOTRIN EC) 81 mg Tablet, [...] Breath. Active fluticasone propionate (FLONASE) 50 mcg/spray [place], Suspension nasal inhaler Administer 1 [place] in each nostril 2 times daily. Active omeprazole (PriLOSEC) 20 mg Capsule, Delayed Release(E.C.) Take 20 mg by mouth 2 times daily. Active isosorbide mononitrate (IMDUR) 30 mg Extended Release 24 hour tablet Take 30 mg by mouth daily in the morning. Active amLODIPine (NORVASC) 5 mg tablet Take 5 mg by mouth daily. Active metoprolol succinate (TOPROL XL) 25 mg Extended Release 24 hour tablet Take 12.5 mg by mouth daily. Active melatonin 5 mg Tablet Take 10 mg by mouth nightly as needed. Active Breztri Aerosphere 160 mcg-9mcg-4.8mcg/ actuation HFA aerosol inhaler Take 2 Puffs by inhalation 2 times daily. Active guaiFENesin (HUMIBID) 400 mg Tablet Take 400 mg by mouth every 4 hours. Active predniSONE (DELTASONE) 5 mg tablet 50 mg x 2 days 40 mg x 2 days 30 mg x 2 days 20 mg x 2 days 10 mg x 2 days 5 mg x 2 days 62 Tablet 5 Active levoFLOXacin (LEVAQUIN) 500 mg tablet Take 1 Tablet (500 mg) by mouth daily for 7 days. 7 Tablet 5 06/10/20 25 Active Problems Problem Noted Date Diagnosed Date COPD with exacerbation 04/03/2025 Slow transit constipation 02/19/2025 Low income 12/08/2024 History of pulmonary embolism [...] Encounters Date Type Department Care Team Description 06/02/2025 11:08 PM MOLD CLOSER HELPER - 06/03/2025 10:07 AM MOLD CLOSER HELPER Emergency [facility] Emergency Medicine [address] [place] [address] Antonio Root MD Acute bronchitis, unspecified organism (Primary Dx); COPD with exacerbation ([facility]) Discharge Disposition: Home or Self Care 06/02/2025 Travel 04/30/2025 External Device Data [facility]STRACTION Provider, Abstract 04/17/2025 9:22 AM CDT - 04/17/2025 11:59 PM CDT Hospital Encounter [facility] [place] [address] [place] [address] Neri Epstein MD Discharge Disposition: Home or Self Care 04/09/2025 External Device Data [facility] ABSTRACTION Provider, Abstract from Last 3 Months Immunizations Immunization Administration Dates Next Due (ADACEL/BOOSTRIX)(10 YR UP) TDAP VACCINE, 0.5ML, IM 12/06/2022,07/22/2017,12/22/2007 (PNEUMOVAX 23)(50 YRS UP) PN EUMOCOCCAL POLYSACCHARIDE (PPV23) 0.5 ML, IM 12/11/2018,04/25/2017,12/22/2007 (PREVNAR 20)(6 WKS UP) PNEUM OCOCCAL CONJUGATE VACCINE 20-VALENT (PCV20), POLYSACCHARIDE [id number] CONJUGATE, ADJUVANT 0.5 ML (PF) IM 01/26/2024 Influenza, Unspecified Formulation 04/25/2017,,05/01/2016 Td(adult) Unspecified Formulation 12/06/2022 Family History Medical History Relation Name Comments Hypertension Brother 1 Cancer Brother 3 Liver Disease Father Other Mother Colon Cancer Neg Hx Relation Name Status Comments Brother 1 Alive Brother 2 Alive Brother 3 Alive Brother 4 Alive Father Mother Sister 1 Sister 2 Alive Social History Tobacco Use Types Packs/Day Years Used Date Smoking Tobacco: Former Cigarettes 0.5 46 1 979 - 07/23/2024 Smokeless Tobacco: Never Tobacco Cessation:Counseling Given: Not Answered Comments:1978 to 1989 was heavy smoker Alcohol Use Standard Drinks/Week Comments Not Currently 0 (1 standard drink = 0.6 oz pure alcohol) heavy drinking in distant past Food Insecurity Answer Date Recorded Do you find you are eating l ess than you should because you can t pay for food? No 06/02/2025 Transportation Needs Answer Date Record ed Have you gone without health care because you didn t have a way to get there? 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 No 2024 Housing Stability Answer Date Recorded Do you worry you won t have a steady place to sleep or struggle to pay rent or mortgage? No 06/02/2025 Utility Needs Answer Date Recorded Do you have difficulty payin g for utility costs (electric, water or gas bills)? No 06/02/2025 Medication Needs Answer Date Recorded Have you skipped taking medi cation due to cost or worry you can t afford new medications? No 06/02/2025 Feeling Safe Answer Date Recorded Are you in a relationship wi th someone who hurts you emotionally and/or physically? No 06/02/2025 Food Insecurity Answer Date Recorded Patient needs [...] on file Legal Sex Male 12:54 PM MOLD CLOSER HELPER Gender Identity Not on file Sexual Orientation Not on file Last Filed Vital Signs Vital Sign Reading Time Taken Comments Blood Pressure 134/68 06/03/2025 10:00 AM MOLD CLOSER HELPER Pulse 94 06/03/2025 10:00 AM MOLD CLOSER HELPER Temperature 36.6 C (97.9 F) 06/02/2025 11:12 PM MOLD CLOSER HELPER Respiratory Rate 20 06/03/2025 10:0 0 AM MOLD CLOSER HELPER Oxygen Saturation 99% 06/03/2025 10: 00 AM MOLD CLOSER HELPER Inhaled Oxygen Concentration - - Weight 53.4 kg (117 lb 12.8 oz) 025 11:12 PM MOLD CLOSER HELPER Height 162.6 cm (5' 4 ) 06/02/2025 11:1 2 PM MOLD CLOSER HELPER Body Mass Index 20.22 06/02/2025 11:12 PM MOLD CLOSER HELPER Plan of Treatment Health Maintenance Due Date Last Done Comments COLORECTAL SCREENING 2001 Colorectal Cancer Screening 2001 FIT-DNA Q 3 years 2001 FIT/FOBT Q 1 year 2001 Flex Sig/CT Colonography Q 5 years 2001 Lung Cancer Screening 2006 RSV VACCINE (60+ or ) (1 - Risk 50-74 years 1-dose series) 2006 ZOSTER VACCINE (1 of 2) 2006 Abdominal Aortic Aneurysm (A AA) Screening 2021 DTAP/TDAP/TD VACCINES (5 - T d or Tdap) 12/06/2032 12/06/2022, 12/06/2022, 07/22/2017, Additional history exists PNEUMOCOCCAL VACCINE 50+ YEARS Completed 0 01/26/2024, 12/11/2018, 04/25/2017, Additional history exists INFLUENZA VACCINE Completed 05/01/2025 Procedures Procedure Name Priority Date/Time Associated Diagnosis Comments TROPONIN 2 HR, 5TH GEN Timed Study 06/03/2025 1:25 AM MOLD CLOSER HELPER XR CHEST PA OR AP 1 VW Stat 06/02/2025 11:48 PM MOLD CLOSER HELPER COVID-19 ANTIGEN Stat 06/02/2025 11:3 0 PM MOLD CLOSER HELPER INFLUENZA VIRUS A AND B, ANTIGEN DETECTION Stat 06/02/2025 11:30 PM MOLD CLOSER HELPER TROPONIN BASELINE, 5TH GEN Stat 06/02/2025 11:28 PM MOLD CLOSER HELPER LACTIC ACID Stat 06/02/2025 11:28 PM MOLD CLOSER HELPER BRAIN NATRIURETIC PEPTIDE, BNP OR PROBNP Stat 06/02/2025 11:28 PM MOLD CLOSER HELPER COMPREHENSIVE METABOLIC PANEL Stat 06/02/2025 11:28 PM MOLD CLOSER HELPER CBC WITH DIFFERENTIAL Stat 06/02/2025 11:28 PM MOLD CLOSER HELPER from Last 3 Months Results * (ABNORMAL) TROPONIN 2 HR, 5TH GEN (06/03/2025 1:25 AM MOLD CLOSER HELPER) TROPONIN T, 2 HR 5TH GEN 33(H) <=15 ng/L 06/03/2025 1:52 AM MOLD CLOSER HELPER [facility] DELTA 2HR TROPONIN T -2 See Interp. 06/03/2025 1:52 AM MOLD CLOSER HELPER [facility] Blood BLOOD SPECIMEN / Unknown Collection / Unknown 06/03/2025 1:25 AM MOLD CLOSER HELPER 06/03/2025 1:30 AM MOLD CLOSER HELPER Narrative [facility] - 06/03/2025 1:52 AM MOLD CLOSER HELPER Troponin elevated. Delta not changing. us Antonio Root MD CHEMISTRY ORDERABLES Fin al Result [facility] CLIA # [id number] [address] [place] [address] * XR CHEST PA OR AP 1 VW (06/02/2025 11:48 PM MOLD CLOSER HELPER) Anatomical Region Laterality Modality Chest Computed Radiogr aphy 06/02/2025 11:4 8 PM MOLD CLOSER HELPER Impressions 06/03/2025 12:55 AM MOLD CLOSER HELPER IMPRESSION: No focal consolidation. Radiographic evidence of COPD. Narrative 06/03/2025 12:55 AM MOLD CLOSER HELPER EXAM: XR CHEST PA OR AP 1 VW DATE/TIME OF EXAM: 06/02/2025 11:48 PM REASON FOR EXAM: Cough DIAGNOSIS: See Reason for Exam COMPARISON: Chest x-ray dated 04/03/2025 FINDINGS: - Lines/tubes: None. - Cardiomediastinal: Contours are within normal limits. - Lungs/pleura: Hyperlucent and hyperinflated lungs. Radiographically the lungs appear clear. Hemidiaphragms are well visualized; no appreciable pleural effusion or pneumothorax. - Bones and soft tissues: No acute abnormalities. - Additional comments: None. Procedure Note Dm Stevens MD - 06/03/2025 EXAM: XR CHEST PA OR AP 1 VW DATE/TIME OF EXAM: 06/02/2025 11:48 PM REASON FOR EXAM: Cough DIAGNOSIS: See Reason for Exam COMPARISON: Chest x-ray dated 04/03/2025 FINDINGS: - Lines/tubes: None. - Cardiomediastinal: Contours are within normal limits. - Lungs/pleura: Hyperlucent and hyperinflated lungs. Radiographically the lungs appear clear. Hemidiaphragms are well visualized; no appreciable pleural effusion or pneumothorax. - Bones and soft tissues: No acute abnormalities. - Additional comments: None. IMPRESSION: No focal consolidation. Radiographic evidence of COPD. Antonio Root MD DIAGNOSTIC IMAGING ORDER YANG Final Result * COVID-19 ANTIGEN (06/02/2025 11:30 PM MOLD CLOSER HELPER) [facility] COVID-19 ANTIGEN Presumptive Negative Presumptive Negative 06/02/2025 11:56 PM [facility] Upper Respiratory ANTERIOR NARES SWAB / Unknown Collection / Unknown 06/02/2025 11:30 PM MOLD CLOSER HELPER 06/02/2025 11:43 PM MOLD CLOSER HELPER [facility] - 06/02/2025 11:56 PM MOLD CLOSER HELPER Sherrie SARS antigen test has been authorized by FDA under an emergency use authorization (EUA) and has been authorized only for the detection of proteins from SARS-CoV-2 and influenza, not for any other viruses or pathogens. Sherrie SARS Antigen STAN is intended for the simultaneous qualitative detection and differentiation of nucleocapsid protein antigen from SARS-CoV-2 directly from nasopharyngeal (MECHANIC INSULATOR) and nasal (NS) swab specimens collected from individuals who are suspected of respiratory viral infection consistent with COVID-19 by their healthcare provider within the first five (5) days of symptom onset when tested at least twice over three days with at least 48 hours between tests, or from individuals without symptoms or other epidemiological reasons to suspect COVID-19 when tested at least three times over five days with at least 48 hours between tests. This test is only authorized for the duration of the declaration that circumstances exist justifying the authorization of emergency use of in vitro diagnostics for detection and/or diagnosis of the virus that causes COVID-19 under Section 564(b)(1) of the Act, 21 U.S.C. 360bbb-3(b)(1), unless the authorization is terminated or revoked sooner. Negative results should be treated as presumptive and confirmed with a molecular assay, if necessary for patient care. Serial testing should be performed in individuals with negative results at least twice over three days (with 48 hours between tests) for symptomatic individuals or from individuals without symptoms or other epidemiological reasons to suspect COVID-19 when tested at least three times over five days with at least 48 hours between tests. Antonio Root MD MICROBIOLOGY - GENERAL O RDERABLES Final Result Performing Organization Address [facility] Co de Phone Number [id number] [address] [place] [phone] * INFLUENZA VIRUS A AND B, ANTIGEN DETECTION (06/02/2025 11:30 PM MOLD CLOSER HELPER) [facility] INFLUENZA A AG NOT DETECTED Not Detected 06/02/2025 11:57 PM MOLD CLOSER HELPER [facility] INFLUENZA B AG NOT DETECTED Not Detected 06/02/2025 11:57 PM MOLD CLOSER HELPER [facility] Upper Respiratory ENTIRE NASOPHARYNX / Unknown Collection / Unknown 06/02/2025 11:30 PM MOLD CLOSER HELPER 06/02/2025 11:43 PM MOLD CLOSER HELPER [facility] - 06/02/2025 11:57 PM MOLD CLOSER HELPER Negative results do not rule out infection. If clinically indicated, consider PCR testing which is more sensitive than antigen testing. If PCR testing is desired, consult with your local laboratory as sample recollection may be required. Antonio Root MD MICROBIOLOGY - GENERAL O RDERABLES Final Result Performing Organization Address [facility] Co de Phone Number [facility] CLIA # [id number] [address] [place] [phone] * (ABNORMAL) TROPONIN BASELINE, 5TH GEN (06/02/2025 11:28 PM MOLD CLOSER HELPER) TROPONIN T, BASELINE 5TH GEN 35(H) <=15 ng/L 06/03/2025 12:00 AM MOLD CLOSER HELPER [facility] Blood Collection / Unknown 06/02/2025 11:28 PM MOLD CLOSER HELPER 06/02/2025 11:43 PM MOLD CLOSER HELPER Narrative [facility] - 06/03/2025 12:00 AM MOLD CLOSER HELPER Troponin elevated. Antonio Root MD CHEMISTRY ORDERABLES Fin al Result Performing Organization Address City/[facility]/ZIP Co de Phone Number [facility] [id number] [address] [place] [address] * LACTIC ACID (06/02/2025 11:28 PM MOLD CLOSER HELPER) Pathologist [facility] LACTIC ACID 1.4 <=2.0 mmol/L 06/02/2025 11:56 PM [facility] Blood BLOOD SPECIMEN / Unknown Collection / Unknown 06/02/2025 11:28 PM MOLD CLOSER HELPER 06/02/2025 11:43 PM MOLD CLOSER HELPER Antonio Root MD CHEMISTRY ORDERABLES Fin al Result Performing Organization Address City/[facility]/ZIP Co de Phone Number [facility] CLIA # [id number] [address] [place] [phone] * (ABNORMAL) CBC WITH DIFFERENTIAL (06/02/2025 11:28 PM MOLD CLOSER HELPER) Pathologist [facility] WBC 7.8 4.2 - 9.1 K/uL 06/02/2025 11:50 PM [facility] RBC 4.01(L) 4.63 - 6.08 M/uL 06/02/2025 11:50 PM [facility] HEMOGLOBIN 10.7(L) 13.7 - 17.5 g/dL 06/02/2025 11:50 PM [facility] HEMATOCRIT 34.9(L) 40.1 - 51.0 % 06/02/2025 11:50 PM [facility] MCV 87.0 79.0 - 92.2 fL 06/02/2025 11:50 PM [facility] MCH 26.7 25.7 - 32.2 pg 06/02/2025 11:50 PM [facility] MCHC 30.7(L) 32.3 - 36.5 g/dL 06/02/2025 11:50 PM [facility] RDW 13.0 11.0 - 14.5 % 06/02/2025 11:50 PM [facility] RDW-STDEV 41.0 36.9 - 56.9 fL 06/02/2025 11:50 PM [facility] PLATELETS 278 130 - 400 K/uL 06/02/2025 11:50 PM [facility] MPV 10.0 10.0 - 14.8 fL 06/02/2025 11:50 PM [facility] NEUTROPHILS 62 34 - 68 % 06/02/2025 11:50 PM [facility] LYMPHOCYTES 16(L) 22 - 53 % 06/02/2025 11:50 PM [facility] MONOCYTES 13(H) 5 - 12 % 06/02/2025 11:50 PM [facility] EOSINOPHILS 6 1 - 7 % 06/02/2025 11:50 PM [facility] BASOPHILS 1 0 - 1 % 06/02/2025 11:50 PM [facility] IMMATURE GRANULOCYTES 1 % 06/02/2025 11:50 PM [facility] NEUTROPHIL ABSOLUTE 4.85 1.78 - 5.38 K/uL 06/02/2025 11:50 PM [facility] LYMPHOCYTE ABSOLUTE 1.27 1.20 - 3.40 K/uL 06/02/2025 11:50 PM [facility] MONOCYTE ABSOLUTE 1.03(H) 0.30 - 0.82 K/uL 06/02/2025 11:50 PM [facility] EOSINOPHIL ABSOLUTE 0.48 0.04 - 0.54 K/uL 06/02/2025 11:50 PM [facility] BASOPHILS ABSOLUTE 0.08 0.01 - 0.08 K/uL 06/02/2025 11:50 PM [facility] IMMATURE GRANULOCYTES ABSOLUTE 0.06 K/uL 06/02/2025 11:50 PM [facility] Blood Collection / Unknown 06/02/2025 11:28 PM MOLD CLOSER HELPER 06/02/2025 11:43 PM MOLD CLOSER HELPER us Antonio Root MD HEMATOLOGY ORDERABLES Fi nal Result Performing Organization Address [facility] Co de Phone Number [facility] CLIA # [id number] [address] [place] [phone] * (ABNORMAL) BRAIN NATRIURETIC PEPTIDE, BNP OR PROBNP (06/02/2025 11:28 PM MOLD CLOSER HELPER) PROBNP, N TERMINAL 130(H) 0 - 125 pg/mL 06/03/2025 12:00 AM [facility] Comment: INTERPRETIVE COMMENT based on diagnosis: [...] years: >1800 pg/mL Blood Collection / Unknown 06/02/2025 11:28 PM MOLD CLOSER HELPER 06/02/2025 11:43 PM MOLD CLOSER HELPER Antonio Root MD CHEMISTRY ORDERABLES Fin al Result Performing Organization Address City/[facility]/ZIP Co de Phone Number [facility] CLIA # [id number] [address] [place] [address] * COMPREHENSIVE METABOLIC PANEL (06/02/2025 11:28 PM MOLD CLOSER HELPER) SODIUM 141 136 - 145 mmol/L 06/03/2025 12:00 AM [facility] POTASSIUM 3.9 3.5 - 5.1 mmol/L 06/03/2025 12:00 AM [facility] CHLORIDE 103 98 - 107 mmol/L 06/03/2025 12:00 AM [facility] CO2 29 22 - 29 mmol/L 06/03/2025 12:00 AM [facility] CALCIUM 9.4 8.8 - 10.2 mg/dL 06/03/2025 12:00 AM [facility] BUN 10 8 - 23 mg/dL 06/03/2025 12:00 AM [facility] CREATININE 0.99 0.67 - 1.17 mg/dL 06/03/2025 12:00 AM [facility] GLUCOSE 95 74 - 99 mg/dL 06/03/2025 12:00 AM [facility] TOTAL PROTEIN 6.7 6.6 - 8.7 g/dL 06/03/2025 12:00 AM [facility] ALBUMIN 4.0 3.5 - 5.2 g/dL 06/03/2025 12:00 AM [facility] BILIRUBIN TOTAL 0.2 0.0 - 1.2 mg/dL 06/03/2025 12:00 AM [facility] ALKALINE PHOSPHATASE 102 40 - 129 U/L 06/03/2025 12:00 AM [facility] AST 22 0 - 50 U/L 06/03/2025 12:00 AM [facility] ALT 12 0 - 50 U/L 06/03/2025 12:00 AM [facility] GFR >60 >=60 mL/min/1.7 3 sq meter 06/03/2025 12:00 AM [facility] Comment:eGFR calculated with 2020 CKD-EPI equation. Vegetarian diet, extremely high or low muscle mass, and may affect results. Cystatin C with Glomerular Filtration Rate is a suitable alternative for these patients. ANION GAP 9 5 - 20 mmol/L 06/03/2025 12:00 AM [facility] Blood Collection / Unknown 06/02/2025 11:28 PM MOLD CLOSER HELPER 06/02/2025 11:43 PM MOLD CLOSER HELPER Antonio Root MD CHEMISTRY ORDERABLES Fin al Result [facility] CLIA # [id number] [address] [place] [phone] from Last 3 Months Insurance MEDICAID [place] [employer] [facility] [place] [employer] Advance Directives For more information, please contact: [phone] * Full Code (Latest Code Status on [...] Non-Invasive (i.e. BiPAP, CPAP): Yes Care Teams School Child Care Attendant Relationship Specialty Start Date End Date Ellie Walker MD [address] [place] [phone] PCP - General Family Practice 09/06/24
--- OUTSIDE RECORDS SUMMARY | 2025-07-08 21:51 | XMS_ITS | Patient Health Record ---
Author Organization [facility] Address [address] [place] [address] Care Team Providers Care Informatics Physician Liaison Name Role Phone Judith Lieberman APRN Primary Care Provider Unav ailable Angel Luis Sebastian Unavailable [phone] [place] Unavailable Unavailable Allergies No Known Allergies Results Component Value Reference Range Notes CT Chest w/o Contrast diagno stic-[id number] Reviewed date:01/16/2025 03:09:53 PM Interpretation: Performing Lab: Notes/Report: See Below For Report CT Chest w/o Contrast Diagnosis Description: Solitary pulmonary nodule Read See Below For Report Schedule Confirmation Reviewed date:01/14/2025 03:29:20 PM Interpretation: Performing Lab: Notes/Report: CT Chest w/o Contrast Schedule Confirmation Reviewed date:01/15/2025 11:59:07 AM Interpretation: Performing Lab: Notes/Report: CT Chest w/o Contrast zzzPET Skull Base to [facility] [address]--[id number] Reviewed date:08/14/2024 01:05:01 PM Interpretation: Performing Lab: Notes/Report: lzl=[id number]=iSite CT Chest w/o Contrast diagno stic-67743 Reviewed date:01/15/2025 11:59:07 AM Interpretation: Performing Lab: Notes/Report: [email or web address]=[id number]=iSite zzzPET Skull Base to Mid Th[address] Pl--[id number] Reviewed date:08/14/2024 03:11:27 PM Interpretation: Performing Lab: Notes/Report: See Below For Report PET study was performed at [facility]. Read See Below For Report Reason For Referral Reason Solitary Pulm Nodule : [facility] - Scheduled Diagnosis 1 Solitary pulmonary n odule (R91.1) Referring Provider First Name Gamaliel Robert ff Referring Provider Last Name MD Referring Provider Speciality [facility] Referred Organization [facility] Referred Provider Angel Luis Sebastian Referred Address [address] [place] [address] [place], [place],[address], Referred Provider Specialty Pulmonary Di seases Referral Priority Routine Reason COPD, O2 dependent, Pulm nodule, tobacco user: [facility] (scheduled) Diagnosis [address] (R 93.89) Diagnosis 2 Chronic hypoxic resp iratory failure (J96.11) Diagnosis 3 Nicotine dependence, cigarettes, uncomplicated (F17.210) Diagnosis 4 Solitary pulmonary n odule (R91.1) Diagnosis 5 Stage 3 severe COPD by GOLD classification (J44.9) Diagnosis 6 Nicotine dependence, cigarettes, in remission (F17.211) Referring Provider First Name Gamaliel Robert ff Referring Provider Last Name MD Referring Provider Speciality [facility] Referred Organization [facility] Referred Provider Angel Luis Sebastian Referred Address [address] [place] [address] [address], [place],[address], Referred Provider Specialty Pulmonary Di seases Referral Priority Routine Medications Medication SIG (Take, Route, Frequency, Duration) Notes Start Date End Date Status Memantine HCl 5 MG Tablet 1 tablet Orally Once a day Active guaiFENesin DM Activ e predniSONE 10 MG Tablet 1 tablet Orally BID Active Omeprazole 40 MG Capsule Delayed Release 1 capsule 1/2 to 1 hour before morning meal Orally Once a day Active Azithromycin 250 MG Tablet as directed Orally Once a day Not-Taking traZODone HCl 150 MG Tablet 1 tablet at bedtime Orally Once a day Active DuoNeb Not-Taking Cyanocobalamin 1000 MCG Tablet 1 tablet Orally Once a day Not-Taking amLODIPine Besylate 5 MG Tablet 1 tablet Orally Once a day Active Albuterol Sulfate HFA 108 (90 Base) MCG/ACT Aerosol Solution 1 puff as needed Inhalation every 4 hrs Active Breztri Aerosphere 160-9-4.8 MCG/ACT Aerosol 2 puffs Inhalation Twice a day Active Aspirin 81 81 MG Tablet Delayed Release 1 tablet Orally Once a day Active Roflumilast 500 MCG Tablet 1 tablet Orally Once a day; Duration: 30 days 01/15/2025 01/10/2026 Active Dextrose 24 gm/31 gm squeeze tube Active Magnesium Citrate No t-Taking Cholecalciferol 25 MCG (1000 UT) Capsule 1 capsule Orally Once a day Active Fluticasone Propionate 50 MCG/ACT Suspension 1 spray in each nostril Nasally Twice a day Active Topiramate 50 MG Tablet 2 Tablets Orally Once a day Not-Taking Docusate Calcium 240 MG Capsule 1 capsule as needed Orally Once a day Active Nicotine Polacrilex 4 MG Lozenge 1 lozenge as needed Mouth/Throat every 8 hrs Not-Taking Social History Tobacco Use: Social History Observation Description Date Details (start date - stop date) Former Smoker NA - NA Social History Tobacco Use: Social Info Question Answer Notes Tobacco Control (Standard) Tobacco use: Former smoker How long has it been since you last smoked? 6-12 months Problems Problem Type SNOMED Code ICD Code Onset Dates Problem Status W/U Status Risk Notes Problem Tobacco user (757263474) Nicotine dependence, cigarettes, uncomplicated (F17.210) Active confirmed Problem Tobacco user (042690298) Nicotine dependence, cigarettes, in remission (F17.211) Active confirmed Problem Solitary pulmonary nodule (370865737) Solitary pulmonary nodule (R91.1) Active confirmed Problem Radiology result abnormal (736181980) Abnormal chest CT (R93.89) Active confirmed Problem Chronic obstructive pulmonary disease (82025252) Stage 3 severe COPD by GOLD classification (J44.9) Active confirmed Problem Chronic respiratory failure (98566983) Chronic hypoxic respiratory failure (J96.11) Active confirmed Vital Signs Heart Rate 93 /min 01/15/2025 Temperature 98 degrees Fahrenheit 01/15/2025 Respiratory Rate 20 /min 01/15/2025 Blood pressure diastolic 61 mm Hg 01/15/2025 Oximetry 91 % 01/15/2025 Height-cm 154.94 cm 01/15/2025 Weight-kg 47.8 kg 01/15/2025 Height 61 in 01/15/2025 Blood pressure systolic 104 mm Hg 01/15/2025 Weight 105.38 lbs 01/15/2025 BMI 19.91 kg/m2 01/15/2025 Encounters Encounter Location Date Provider Diagnosis [facility] [address] [place] [address] [place] [address] 01/15/2025 Angel Luis Sebastian Solitary pulmonary nodule R91.1 ; Stage 3 severe COPD by GOLD classification J44.9 ; Chronic hypoxic respiratory failure J96.11 and Nicotine dependence, cigarettes, in remission F17.211 [facility] [address] [place] [address] 09/10/2024 Angel Luis Sebastian Solitary pulmonary nodule R91.1 ; Stage 3 severe COPD by GOLD classification J44.9 ; Chronic hypoxic respiratory failure J96.11 and Nicotine dependence, cigarettes, in remission F17.211 [facility] [address] [place] [address] 07/16/2024 [facility] [address] [place] [address] [place] [address] 07/09/2024 [facility] [address] [place] [address] 01/08/2025 [facility] [address] [place] [address] 12/05/2024 [facility] [address] [place] [address] [place] [address] 11/22/2024 [facility] [address] [place] [address] 09/03/2024 [facility] [address] [place] [address] [place] [address] 08/28/2024 [facility] [address] [place] [address] 08/20/2024 [facility] [address] [place] [address] [place] [address] 08/15/2024 [facility] [address] [place] [address] [place] [address] 07/30/2024 [facility] [address] [place] [address] [place] [address] 07/27/2024 Angel Luis Sebastian Assessments Encounter Date Diagnosis (ICD Code) Assessment Notes Treatment Notes Treatment Clinical Notes Section Notes 09/10/2024 Solitary pulmonary nodule (ICD-10 - R91.1) [...] use to maintain a saturation between 88-92% 09/10/2024 Nicotine dependence, cigarettes, in remission (ICD-10 [...] quit smoking in the beginning of 2024. 09/10/2024 Other Antonieta, Alexia Hobbs, am scribing for, and in the presence of Dr. Angel Luis Sebastian. I, Dr. Angel Luis Sebastian, personally performed the services described in this documentation , as scribed by Alexia Hobbs in my presence, and it is both accurate and complete. 01/15/2025 Other Alexia Fung am scribing for, and in the presence of Dr. Angel Luis Sebastian. I, Dr. Angel Luis Sebastian, personally performed the services described in this documentation , as scribed by Alexia Hobbs in my presence, and it is both accurate and complete. Plan Of Treatment Pending Test Test Name Order Date PET CT Skull Base to Mid Thigh ([facility]) 07/03/2024 Future Test Test Name Order Date CT Chest w/o Contrast diagnostic-[id number] 09/03/2024 Next Appt Details Provider Name:Angel Luis Sebastian, 07/17/2025 11:40:00 AM, [address] [place] [address] [address], [place], [address], Insurance Providers Payer Name Payer Address Payer Phone Subscriber Number Group Number Insured Name Patient Relationship to Insured Coverage Start Date Coverage End Date [employer] [address] [place] [phone] [id number] [employer] PRITCHARD Self - patient is the insured Medical (General) History Medical History History ICD Code Measles,Chicken Pox Pneumonioa Arthritis Venereal Disease Migraine Headaches HTN Asthma Stroke Surgical History Surgery Date(Month/Year) Fluid pocket cut off back Appendectomy Hospitalization History Reason Date(Month/Year) Multiple
[2025-07-08 21:52] LABS: INR 0.97 (0.8-1.2); Prothrombin Time 13.50 SECONDS (12.1-14.9)
[2025-07-08 21:53] LABS: Partial Thromboplastin Time 36.6 SECONDS (23.9-36.7)
[2025-07-08 22:02] LABS: Troponin(5th) Baseline 28 ng/L (0-15)
[2025-07-08 22:12] LABS: Alanine Aminotransferase 10 U/L (0-41); Albumin Level 3.4 g/dL (3.5-5.2); Alkaline Phosphatase 82 U/L (40-130); Anion Gap 16.2 (5-19); Aspartate Amino Transferase 12 U/L (0-40); Blood Urea Nitrogen 11 mg/dL (8-23); Calcium 9.4 mg/dL (8.5-10.5); Carbon Dioxide 29 mmol/L (22-29); Chloride 99 mmol/L (98-107); Globulin 2.6 g/dL (1.3-4.6); Glucose 111 mg/dL (65-115); Lipase 33 U/L (13-60); NT Pro B Type Natriuretic Pept 168 pg/mL (0-125); Osmolality Calculated 290 mOsm/kg (285-295); Potassium 4.2 mmol/L (3.5-5.1); Sodium 140 mmol/L (136-145); Total Protein 6.0 g/dL (6.6-8.7)
--- NOTE | 2025-07-08 23:03 | ECG_ITS ---
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 Measurements Intervals [place] Rate: 81 P: 73 MS: 174 QRS: 80 QRSD: 164 T: 120 QT: 354 QTc: 412 Interpretive Statements SINUS RHYTHM WITH SINUS ARRHYTHMIA INTRAVENTRICULAR CONDUCTION DELAY [130+ ms QRS DURATION] Compared to ECG 07/08/2025 21:11:32 Intraventricular conduction delay now present Electronically Signed On 07-11-2025 18:14:52 INTELLIGENCE ENGINEER by Christine Shukla M.D. [email or web address] [id number]
[2025-07-08] MEDS: levofloxacin-dextrose 5 % 750 MG/150 ML PREMIX 100 MG IV (23:28)
[2025-07-09] VITALS (14 sets, daily range): BP systolic 116–149; BP diastolic 66–81; PULSE 69–110; RESP 16–22; TEMP 36.4–36.6; O2SAT 94–100; BMI 19.3
--- NOTE | 2025-07-09 | PM.HP ---
Providers/Chief Complaint Admitting Physician: Александр Proctor MD Primary Care Provider: Ellie Irene MD Chief Complaint: Chest pain and dyspnea on exertion History of Present Illness Naren Pritchard is a 69 year old male with history of COPD and coronary artery disease comes in with complaints of 3 days chest pain waxed and wanes but up to 7-8/10. He is short of breath at rest requiring 2 L of oxygen but states is worse with dyspnea exertion with ambulating about 45 feet. Patient states his cough is productive of grayish-white phlegm he has had chills and sweats but no fevers. Weight has been stable. Patient states his chest pain was relieved partially and transiently by nitroglycerin in the ambulance. He had an [place] at age 52 but was using methamphetamines at the time and also smoking. Denies that any stents were given and it was not suggested that he would need surgery. Past surgical history appendectomy for ruptured appendix done laparoscopically He had a pocket of fluid removed from his back Family history mom and dad both of [place] in their 50s dad was 59 Review of Systems Narrative: General Positive for chills and sweats weight has been stable denies fevers Cardiovascular positive for chest pain starting about a year ago when his COPD was a exacerbated at the time now chest pain occurs mostly with activity walk about 45 feet. Patient states his chest pain was 3-4/10 earlier today in the ambulance nitroglycerin helped Respiratory is on 2 L/min oxygen at home this has not changed he has had COPD diagnosed stop smoking 2 years ago. His wheezing has been worse with recent illness and he is also had hoarseness just today states he does not do stairs due to oxygen dependent COPD GI no nausea vomiting diarrhea constipation denies blood in the stool no dysuria hematuria or hesitancy he does have nocturia 2-3 times a night small amounts Neuro no seizures strokes limb weakness Heme no history of DVT or PE Malignancy he thought he had some colon cancer but on further questioning sounds like he had polyps and some of them might have been precancerous last one 4 to 5 years ago. He sees a [place] physician and has another colonoscopy scheduled about 2 months from now here sounds like with one of the surgeons. Medications/Allergies Home Medications ?Medication ?Instructions ?Recorded ?Confirmed ?Last Taken ?Type aspirin 81 mg tablet,delayed 81 mg PO DAILY 11/27/19 01/27/25 11/22/24 History release isosorbide mononitrate 30 mg 30 mg PO DAILY #90 tabs 05/23/24 01/27/25 11/22/24 Rx tablet,extended release 24 hr metoprolol succinate 25 mg 12.5 mg (1/2 x 25 mg) PO DAILY #45 11/16/24 01/27/25 11/22/24 Rx tablet,extended release 24 hr tabs amlodipine 5 mg tablet 5 mg PO DAILY 11/23/24 01/27/25 Unknown History guaifenesin 400 mg tablet 400 mg PO TID 11/23/24 01/27/25 Unknown History melatonin 5 mg tablet 10 mg PO DAILY 11/23/24 01/27/25 Unknown History omeprazole 20 mg tablet,delayed 20 mg PO BID 11/23/24 01/27/25 Unknown History release budesonide 160 mcg-glycopyr 9 2 inh inhalation BID #10.7 grams 11/25/24 01/27/25 Unknown Rx mcg-formot 4.8 mcg/actuation HFA inhaler (US PREVENTIVE MEDICINEztri Aerosphere) cholecalciferol (vitamin D3) 25 25 mcg PO DAILY 01/27/25 01/27/25 Unknown History mcg (1,000 unit) capsule (Vitamin D3) docusate sodium 100 mg capsule 100 mg PO BID PRN Constipation 01/27/25 01/27/25 Unknown History ipratropium 0.5 mg-albuterol 3 mg 3 ml inhalation Q6H PRN Shortness 01/27/25 01/27/25 Unknown History (2.5 mg base)/3 mL nebulization Of Breath Or Wheezing soln roflumilast 500 mcg tablet 500 mcg PO DAILY 01/27/25 01/27/25 Unknown History trazodone 150 mg tablet 150 mg PO BEDTIME 01/27/25 01/27/25 Unknown History albuterol sulfate 90 mcg/actuation 2 inh inhalation Q6H PRN shortness 01/29/25 Unknown Rx aerosol inhaler of breath or wheezing #8.5 grams amoxicillin 875 mg-potassium 1 tab PO BID #10 tabs 01/29/25 Unknown Rx clavulanate 125 mg tablet dextromethorphan-guaifenesin 10 10 ml PO Q4H #237 mL 01/29/25 Unknown Rx mg-100 mg/5 mL oral syrup prednisone 20 mg tablet See Rx Instructions .Route 01/29/25 Unknown Rx .COMPLEX #20 tabs nitroglycerin 0.4 mg sublingual 0.4 mg sublingual Q5M PRN chest 04/18/25 Unknown Rx tablet pain #25 tabs Allergies Allergy/AdvReac Type Severity Reaction Status Date / Time No Known Allergies Allergy Verified 08/02/24 22:45 PFSH Acute PFSH: Medical History (Updated 07/09/25 @ 00:12 by Александр Proctor MD) Weight loss, unintentional Essential hypertension History of migraine headaches Vitamin D deficiency Hepatitis C Treatment status unknown Hx of colonic polyps Sessile on colonoscopy 02/16 Depression GERD (gastroesophageal reflux disease) Peptic ulcer disease Gastric ulcer on EGD 02/16 COPD (chronic obstructive pulmonary disease) Surgical History History of colonoscopy with polypectomy 2019 Status post excision of lipoma (~01/2019) Hx of appendectomy Family History Father Tuberculosis Denies family history of Diabetes Cancer Social History (Updated 07/09/25 @ 00:09 by Александр Proctor MD) Smoking and tobacco/nicotine status: former use of tobacco/nicotine Quit status (tobacco/nicotine): has quit using Year quit tobacco: 2023 Former quit date comment: Was hospitalized for COPD went home and just never smoked again Second hand smoke exposure: No Alcohol intake: current Alcohol intake frequency: holidays/special occasions only Substance/Drug Use: former Former substance use details: Used to use meth Additional social history: 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 Alcohol is none illicits none tobacco now also none after smoking 1 to 1-1/2 packs/day for 42 years lives with his and his nephew. 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 Pets and animals: Yes Do you think of yourself as: Straight/Heterosexual Current gender identity: Male Vitals/I&O/Wt Last Vital Signs Temp 97.7 F 07/08/25 21:01 Pulse 87 07/08/25 23:30 Resp 17 07/08/25 22:20 BP 133/72 07/08/25 23:30 Pulse Ox 94 07/08/25 23:30 O2 Del Method Nasal Cannula 07/08/25 23:30 O2 Flow Rate 2 07/08/25 23:30 Weight last 48 hrs Weight 51.982 kg Physical Exam Narrative: General well-developed well-nourished thin male in no acute cardiopulmonary distress Oropharynx Mallampati 1 edentulous CV regular rate and rhythm Lungs inspiratory and expiratory we wheezes with prolonged x-ray phase moderately good air movement Abdomen positive bowel tones soft nontender Calves no tenderness cords pretrip edema dorsal pedal pulses 2+ right 1+ left posterior tibial pulses 1+ right 2+ left Skin mildly diaphoretic Data 07/08/25 21:20 07/08/25 21:20 A&P Assessment and plan 1. Chest pain: Patient is admitted to hospital with beta-blockers aspirin DVT prophylaxis Lovenox dose. EKG sinus arrhythmia intraventricular conduction delay no acute ST-T wave abnormality. Consider stress testing 2. COPD with acute exacerbation: Will treat with nebulizers and steroids. Respiratory assessment and oxygen protocol 3. Chronic hypoxemic respiratory failure: Is on chronic 2 L/min oxygen at home 4. Atypical pneumonia: Will obtain viral panel. He is treated empirically with Levaquin for atypical pneumonia at this time due to right lung infiltrate seen on chest x-ray PDMP PDMP Reviewed: Not Reviewed Attestations Medical Necessity Statement*: Patient is admitted to hospital on observation and is expected to require less than 2 midnights Coding Level of Care Code 96675 Diagnoses Chest pain R07.9 COPD with acute exacerbation J44.1 Chronic hypoxemic respiratory failure J96.11 Atypical pneumonia J18.9 Time Spent (min) 75
[2025-07-09] MEDS: methylPREDNISolone sod succ 40 mg/mL INJ IVP ×4 (01:36→16:48)
--- NOTE | 2025-07-09 03:03 | ECG_ITS ---
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 Measurements Intervals [place] Rate: 79 P: 73 WA: 173 QRS: 67 QRSD: 81 T: 65 QT: 369 QTc: 423 Interpretive Statements SINUS RHYTHM Compared to ECG 07/08/2025 23:49:06 Sinus arrhythmia no longer present Intraventricular conduction delay no longer present Electronically Signed On 07-11-2025 18:13:56 CREPING MACHINE OPERATOR HELPER by Christine Shukla M.D. [email or web address]
[2025-07-09 03:52] LABS: Troponin 5 6HR 27.16 ng/L (0-15)
[2025-07-09 03:59] LABS: Troponin 5 6HR Delta -0.84 ng/L (0-12)
[2025-07-09] MEDS: metoprolol succinate ER (24 HR) 25 mg Tablet 12.5 MG PO (04:33)
[2025-07-09 04:35] LABS: Coronavirus 229E,HKU1,NL63,OC4 Not Detected (NOT DETECT); Parainfluenza Virus Type 1 Not Detected (NOT DETECT); Parainfluenza Virus Type 2 Not Detected (NOT DETECT); Parainfluenza Virus Type 3 Not Detected (NOT DETECT); Parainfluenza Virus Type 4 Not Detected (NOT DETECT); SARS-COV-2 Not Detected (NOT DETECT)
--- NOTE | 2025-07-09 07:50 | PC.PHAR ---
[facility] is [facility] 7:47am 07/09/25
--- NOTE | 2025-07-09 09:04 | ECG_ITS ---
[facility] Test Date: 2025-07-10 Pat Name: Naren Pritchard Department: Room: 259 Gender: Male Renal Medicine Physician: : 1955 Requested By: Eva Rivera Order Number: [id number] Walker MD: Gideon Granados M.D. Interpretive Statements Procedure: A total of 0.4 mg of Lexiscan was infused over 20 seconds. The stress phase was continued for a total of 5 minutes. Sestamibi was injected 20 seconds after the Lexiscan infusion. Findings:Baseline blood pressure 108/52 with a heart rate of 86. After Lexiscan infusion the blood pressure decreased to 94/45 and heart rate increased to a maximum of 108 bpm. Resting EKG showed normal sinus rhythm with no ST changes. No ST changes during the stress test. No arrhythmias. Conclusion: 1. Normal EKG response to Lexiscan infusion 2. No Lexiscan induced chest pain or cardiac arrhythmia. 3. Normal blood pressure and heart rate response. 4. Nuclear myocardial perfusion scan pending; see separate report. Electronically Signed On 07-10-2025 14:03:26 BIBLE READER by Gideon Granados M.D. [id number]
--- NOTE | 2025-07-09 10:41 | PC.CHAP ---
Pastoral Care Encounter/Spiritual Assessment Type of Contact [] Declined wire border assembler visit [] Patient/Family/Request visit [] Outpatient visit [] Follow-up visit [] Physician referral [] Code/Alert [x] Routine visit [] Staff referral [] Actively dying [] Patient sleeping [] Family support [] [] Out of room [] Palliative care [] [] Receiving care in room [] Pre-surgical visit [] Trauma [] Long length of stay [] ICU visit [] Other: Relational/Emotional Strength [x] Patient feels connected with others/family/visitors/staff [] Distress [] Loneliness/isolation [] Abandonment Spirituality of Patient [x] Person of Stephanie [] Attends Mormon of their Stephanie [x] Believes in Prayer [] Reads Bible or Presybeterian materials [] There are Spiritual issues to be addressed Sonography Technician Interventions [x] Prayer [x] Active listening [] Non-anxious presence [x] Spiritual/emotional support [] Crisis/trauma care [] Spiritual counseling [] Bereavement support [] Provided bereavement packet [] Provided Bible/devotional materials [] Provided toy/stuffed animal, coloring book to patient or family member [] Provided Communion [] Anointing/Cache [] Salvation [x] Completed spiritual assessment [] Other: Impact on Illness or Injury [] Angry [] Fearful [] Anxious [] Often cries [] Exhaustion [] Unable to work [] Unable to attend amish [] Unable to walk/stand [] Unable to read [] Unable to drive [] Unable to eat/drink [] Unable to sleep [] Unable to be with family [] Patient intubated [] Other: Summary Time spent with patient 5 min
--- NOTE | 2025-07-09 10:56 | PC.PHAR ---
[facility]25
--- NOTE | 2025-07-09 11:25 | USCV_ITS ---
Naren Pritchard Age: 69 Gender: M : 1955 Exam Date: 07/09/2025 19:26 Ordering Phys: Patti Hernandez NP Technologist: SABINE Exam Location[place] [facility] [place] Indication: chest pain, History of COPD, O2-dependent, long- term smoker continues smoking, CAD BP: 149 / 69 HR: 94 Rhythm: Sinus Technical Quality: Adequate MEASUREMENTS (Male / Female) Normal Values 2D ECHO LV Diastolic Diameter PLAX 4.2 cm 4.2 - 5.9 / 3.9 - 5.3 cm IVS Diastolic Thickness 1.0 cm 0.6 - 1.0 / 0.6 - 0.9 cm IVS Systolic Thickness 1.2 cm LVPW Diastolic Thickness 0.9 cm 0.6 - 1.0 / 0.6 - 0.9 cm LVPW Systolic Thickness 1.4 cm LVOT Diameter 1.7 cm LV Ejection Fraction 2D Teich 62.4 % LV Ejection Fraction MOD 4C 61.1 % LV Ejection Fraction MOD 2C 68.5 % LV Ejection Fraction 2C AL 69.1 % LA Diameter 2.7 cm Aorta at Sinotubular Diameter 2.1 cm IVC Diameter 1.2 cm M-MODE LA Ao Ratio MM 0.8 AV Cusp Separation MM 2.2 cm DOPPLER AV Peak Velocity 124.0 cm/s LVOT Peak Velocity 120.0 cm/s AV Area Cont Eq vti 2.0 cm squared AV Area Cont Eq pk 2.3 cm squared MV Peak Velocity 114.0 cm/s MV Area PHT 4.1 cm squared Mitral E to A Ratio 0.8 TV Peak E Velocity 68.0 cm/s PV Peak Velocity 105.0 cm/s FINDINGS Left Ventricle Normal left ventricular size, systolic function and wall thickness with no regional wall motion abnormality. Left ventricular ejection fraction is 61%. Normal left ventricular diastolic function. Right Ventricle Normal right ventricular size and systolic function. RVSP could not be calculated due to incomplete tricuspid regurgitation velocity profile. Right Atrium Normal right atrial size. Left Atrium Normal left atrial size. IA Septum Normal appearance of the interatrial septum. Mitral Valve Normal mitral valve structure. No mitral valve stenosis or regurgitation. Aortic Valve Normal aortic valve structure. No aortic valve stenosis or regurgitation. Tricuspid Valve Normal tricuspid valve structure. No tricuspid valve stenosis or regurgitation. Pulmonic Valve Normal pulmonic valve structure. No pulmonic valve stenosis or regurgitation. Pericardium No pericardial effusion. Aorta Normal diameter of the aortic root and ascending thoracic aorta. IVC Normal IVC diameter. CONCLUSIONS Normal left ventricular size, systolic function and wall thickness with ejection fraction of 61%. Normal right ventricular size and systolic function. No significant valvular abnormalities. Gideon Granados MD, FACC (Electronically Signed) Final Date: 10 July 2025 14:25 S
--- NOTE | 2025-07-09 14:35 | P.CONIM_ITS ---
<Statement entered by Gideon Granados MD - 07/09/25 17:41> Patient was evaluated and cared for in conjunction with an advanced practice practitioner. I personally examined the patient and reviewed the chart and all pertinent data including imaging, telemetry, and laboratory results. I discussed the patient in detail with the advanced practice practitioner. Please see their note for complete consult note, testing results and agreed upon plan of care for the patient. Providers/Reason For Consult 2 Consulting Physician/Specialty*: Dr. Granados Reason for Consult*: Chest pain, elevated troponin Requesting Physician: Dr. Rivera Attending Physician: Eva Rivera MD Primary Care Provider: Ellie Irene MD History of Present Illness History of Present Illness Naren Pritchard is a 69 year old male with a history of COPD, chronic respiratory failure, hypertension, former smoker presented to the emergency room with central chest pressure. He stated that he has had this before. Denies any aggravating factors. Reports that nitroglycerin relieves this pressure. He states he has had the same chest pressure in the past. Previous stress tests have been normal. EKG showed no acute ST or T wave abnormalities. Troponin was flat at 28-31-27 with delta negative. Patient has no known cardiac history. He does have a history of GERD and peptic ulcer disease. Denies chest pain at this time. In the ER he was treated with Solu-Medrol, multiple updrafts, Levaquin. Current oxygen saturation 98% on nasal cannula. Vitals are stable. Echo 05/27/2024 CONCLUSIONS Normal left ventricular size and systolic function, EF 60%. No regional wall motion abnormalities. Thickened aortic valve. There is no pericardial effusion. There are no intracardiac masses. Compared to the study from 12/09/2023, there may not be a significant change in the 2D findings Chest x-ray 07/08/25 IMPRESSION: Questionable infiltrate involving the right upper lobe, consider CT for further characterization. Myocardial perfusion scan 05/28/25 IMPRESSIONS Myocardial perfusion imaging is normal suggestive of low probability for obstructive coronary artery disease. Medications/Allergies Home Medications ?Medication ?Instructions ?Recorded ?Confirmed ?Last Taken ?Type aspirin 81 mg tablet,delayed 81 mg PO DAILY 11/27/19 1 09/09/24 11/22/24 History release isosorbide mononitrate 30 mg 30 mg PO DAILY #90 tabs 1 07/09/25 11/22/24 Rx tablet,extended release 24 hr metoprolol succinate 25 mg 12.5 mg (1/2 x 25 mg) PO DA JESSICA #45 11/16/24 07/09/25 11/22/24 Rx tablet,extended release 24 hr tabs amlodipine 5 mg tablet 5 mg PO DAILY 11/23/2407/09 Unknown History guaifenesin 400 mg tablet 400 mg PO TID 11/23/2407/09 Unknown History melatonin 5 mg tablet 10 mg PO DAILY 11/23/2404/25 Unknown History omeprazole 20 mg tablet,delayed 20 mg PO BID 11/23/24 07/09/25 Unknown History release budesonide 160 mcg-glycopyr 9 2 inh inhalation BID #10 .7 grams 11/25/24 07/09/25 Unknown Rx mcg-formot 4.8 mcg/actuation HFA inhaler (Breztri Aerosphere) cholecalciferol (vitamin D3) 25 25 mcg PO DAILY 07/09/25 Unknown History mcg (1,000 unit) capsule (Vitamin D3) docusate sodium 100 mg capsule 100 mg PO BID PRN Const ipation 01/27/25 07/09/25 Unknown History ipratropium 0.5 mg-albuterol 3 mg 3 ml inhalation QID PRN Shortness 01/27/25 07/09/25 Unknown History (2.5 mg base)/3 mL nebulization Of Breath Or Wheezing soln dextromethorphan-guaifenesin 10 10 ml PO Q4H #237 mL 0 01/29/25 07/09/25 Unknown Rx mg-100 mg/5 mL oral syrup nitroglycerin 0.4 mg sublingual 0.4 mg sublingual Q5M PRN chest 04/18/25 07/09/25 Unknown Rx tablet pain #25 tabs albuterol sulfate 90 mcg/actuation 2 inh inhalation QI D PRN shortness 07/09/25 07/09/25 Unknown History aerosol inhaler of breath or wheezing food supplemt, lactose-reduced 1 ea PO QID 07/09/25 Unknown History ipratropium 20 mcg-albuterol 100 1 puff inhalation QID 07/09/25 07/09/25 Unknown History mcg/actuation mist for inhalation (Combivent Respimat) levocarnitine 500 mg capsule 500 mg PO QAM 07/09/25 Unknown History omega 7-dbg-gse-fish oil 1,000 mg 1 cap PO BID 5 07/09/25 Unknown History (120 mg-180 mg) capsule (Fish Oil) polyethylene glycol 3350 17 17 g PO DAILY 07/09/2504/25 Unknown History gram/dose oral powder (Miralax) tamsulosin 0.4 mg capsule 0.4 mg PO QPM 07/09/2507/09 Unknown History trazodone 100 mg tablet 200 mg PO BEDTIME 07/09/25 1 09/09/24 Unknown History Allergies Allergy/AdvReac Type Severity Reaction Status Date / Time No Known Allergies Allergy Verified 08/02/24 22:45 Current Medications Generic Name Dose Route Start Last Admin Trade Name Freq PRN Reason Stop Dose Admin Albuterol/Ipratropium 3 ml 07/08/25 23:51 07/09/25 01:25 Ipratropium-Albuterol 3 Ml Neb INHALATION 3 ml Q6H PRN Administration Shortness Of Breath Or Wheezing Albuterol/Ipratropium 3 ml 07/09/25 12:00 07/09/25 11:44 Ipratropium-Albuterol 3 Ml Neb INHALATION 3 ml QID.RESPIRATORY LANIE Administration Amlodipine Besylate 5 mg 07/09/25 05:00 07/09/25 04:33 Amlodipine 5 Mg Tablet PO 5 mg DAILY LANIE Administration Aspirin 81 mg 07/09/25 05:00 07/09/25 04:33 Aspirin 81 Mg Ec Tablet PO 81 mg DAILY LANIE Administration Enoxaparin Sodium 40 mg 07/09/25 00:51 07/09/25 01:36 Enoxaparin 40 Mg/0.4 Ml Syringe SUBCUT 40 mg Q24H LANIE Administration Levofloxacin 500 mg 07/09/25 06:00 07/09/25 05:23 Levofloxacin 500 Mg Tablet PO 500 mg DAILY@0600 LANIE Administration Protocol Methylprednisolone Sodium Succinate 40 mg 07/08/25 23:57 07/09/25 12:25 Methylprednisolone Sod Succ 40 Mg/Ml Inj IVP 40 mg Q6H LANIE Administration Metoprolol Succinate 12.5 mg 07/09/25 05:00 07/09/25 04:33 Metoprolol Succinate Er (24 Hr) 25 Mg Tablet PO 12.5 mg DAILY LANIE Administration Roflumilast 500 mcg 07/09/25 05:00 07/09/25 04:34 Roflumilast 500 Mcg Tablet PO 500 mcg DAILY LANIE Administration Trazodone HCl 150 mg 07/08/25 23:45 07/09/25 01:36 Trazodone 150 Mg Tablet PO 150 mg BEDTIME LANIE Administration PFSH Acute 2 PFSH: Medical History (Updated 07/09/25 @ 00:12 by Александр Proctor MD) Weight loss, unintentional Essential hypertension History of migraine headaches Vitamin D deficiency Hepatitis C Treatment status unknown Hx of colonic polyps Sessile on colonoscopy 02/16 Depression GERD (gastroesophageal reflux disease) Peptic ulcer disease Gastric ulcer on EGD 02/16 COPD (chronic obstructive pulmonary disease) Surgical History History of colonoscopy with polypectomy 2019 Status post excision of lipoma (~01/2019) Hx of appendectomy Family History Father Tuberculosis Denies family history of Diabetes Cancer Social History (Updated 07/09/25 @ 00:09 by Александр Proctor MD) Smoking and tobacco/nicotine status: former use of tobacco/nicotine Quit status (tobacco/nicotine): has quit using Year quit tobacco: 2023 Former quit date comment: Was hospitalized for COPD went home and just never smoked again Second hand smoke exposure: No Alcohol intake: current Alcohol intake frequency: holidays/special occasions only Substance/Drug Use: former Former substance use details: Used to use meth Additional social history: 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 Alcohol is none illicits none tobacco now also none after smoking 1 to 1-1/2 packs/day for 42 years lives with his and his nephew. 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 Pets and animals: Yes Do you think of yourself as: Straight/Heterosexual Current gender identity: Male Vitals/I&O/Wt Last Vital Signs Temp 97.5 F L 07/09/25 11:24 Pulse 83 07/09/25 11:44 Resp 18 07/09/25 11:44 BP 130/72 07/09/25 11:24 Pulse Ox 98 07/09/25 11:44 O2 Del Method Nasal Cannula 07/09/25 11:44 O2 Flow Rate 2 07/09/25 11:44 07/08/25 07/09/25 07/09/25 22:59 06:59 14:59 Intake Total 450 / 450 960 / 960 Output Total 500 / 500 450 / 450 Balance -50 / -50 510 / 510 Weight last 48 hrs Weight 112 lb Weight 112 lb 8 oz Weight 114 lb 9.6 oz Physical Exam 2 Narrative: General: No apparent distress HENMT: normoceophalic Muskuloskeletal: Full ROM Respiratory: Normal respiratory effort, clear to auscultation bilaterally throughout all lung garcia, no use of accessory muscles Cardio: No JVD, regular rate, regular rhythm, S1 S2 normal, no murmurs, peripheral pulses 2+ radial palpated bilaterally Extremities: Full ROM, normal, normal capillary refill, no cyanosis or edema Neuro: Alert and oriented x4, no focal motor deficits Psych: Affect normal, denies suicidal ideation, mental status grossly normal Skin: No rashes or lesions noted, no wounds Data 07/08/25 21:20 07/08/25 21:20 A&P Assessment and plan 1. Chest pain: 2. Nicotine dependence: 3. Tobacco dependence with current use: 4. Essential hypertension: Plan: Patient is not in any chest pain at this time. Chest pain is atypical in nature. Serial EKG show no acute ST elevation or T wave inversions. Troponin mildly elevated. Could be due to demand ischemia from COPD exacerbation/pneumonia although underlying CAD will need to be ruled out. At this time, stress test is being obtained as well as echo. Further recommendations after this. If stress test is normal, may need GI workup, as patient has had GERD and ulcer issues in the past. Agree with amlodipine 5 mg daily, aspirin, metoprolol from cardiac standpoint. Thank you, Dr. Rivera, for allowing us to care for this very pleasant 69 year old gentleman. PDMP PDMP Reviewed: Not Reviewed Coding Level of Care Code Acute Code for Chg Fwd Diagnoses Chest pain R07.9 Nicotine dependence F17.200 Tobacco dependence with current use F17.200 Essential hypertension I10
[2025-07-10] VITALS (8 sets, daily range): BP systolic 98–128; BP diastolic 46–70; PULSE 78–96; RESP 16–20; TEMP 36.5–36.7; O2SAT 93–99; BMI 23.1
[2025-07-10] MEDS: methylPREDNISolone sod succ 40 mg/mL INJ IVP ×3 (00:13→11:44)
[2025-07-10] MEDS: metoprolol succinate ER (24 HR) 25 mg Tablet 12.5 MG PO (04:53)
--- NOTE | 2025-07-10 09:05 | NMCV_ITS ---
NM maria del carmen perf SPECT r/s* [id number] Naren Pritchard Age: 69 Gender: M : 1955 Exam Date: 07/10/2025 07:10 Ordering Phys: Eva Rivera MD Technologist: EMILY Nevarez Exam Location: [facility] Indications: cp STRESS TEST [facility] for [facility] findings IMAGE PROTOCOL Rest/Stress 1 Lexiscan Day Radiopharmaceutical Dose (mCi) Administration Site Administered by Rest: Tc-99m 10.4 IV Guerda Fish, GUM PULLER Sestamibi Stress:Tc-99m 32.9 IV Guerda Pattengle, GUM PULLER Sestamibi Rest: 10-Jul-2025 60 Discovery 630 Stress: 10-Jul-2025 30 Discovery 630 0.4mg Lexiscan. Supine position only as patient was unable to lay prone. SPECT RESULTS Technical Quality: Good Raw Data Analysis: Normal Image Corrections: No attenuation or motion correction applied Summed Stress Score: 0 Summed Rest Score: 0 Summed Difference Score: 0 PERFUSION FINDINGS SPECT images demonstrate homogeneous tracer distribution throughout the myocardium. FUNCTIONAL RESULTS (calculated via Gated SPECT) Stress Image LV EF (%): 65 Stress EDV (mL):63 TID: 0.88 Stress ESV (mL):22 FUNCTIONAL FINDINGS: There is normal left ventricular systolic function. IMPRESSIONS Myocardial perfusion imaging is normal. Gideon Granados MD, FACC (Electronically Signed) Final Date: 10 July 2025 13:55 S
--- NOTE | 2025-07-10 11:40 | P.DS_ITS ---
Discharge Providers Date of Admission: 07/08/25 23:17 Date of Discharge: July 10, 2025 Attending Provider at Admission: Александр Proctor MD Attending Provider at Discharge: Eva Rivera MD Primary Care Provider: Ellie Irene MD Diagnoses at Discharge Discharge Diagnosis 1. Cigarette nicotine dependence with other nicotine-induced disorder: 2. Tobacco dependence with current use: 3. Essential hypertension: Reason for Visit Reason for Visit: Chest pain and dyspnea on exertion Hospital Course Hospital Course H&P: Naren Pritchard is a 69 year old male with history of COPD and coronary artery disease comes in with complaints of 3 days chest pain waxed and wanes but up to 7-8/10. He is short of breath at rest requiring 2 L of oxygen but states is worse with dyspnea exertion with ambulating about 45 feet. Patient states his cough is productive of grayish-white phlegm he has had chills and sweats but no fevers. Weight has been stable. Patient states his chest pain was relieved partially and transiently by nitroglycerin in the ambulance. He had an VT at age 52 but was using methamphetamines at the time and also smoking. Denies that any stents were given and it was not suggested that he would need surgery. Past surgical history appendectomy for ruptured appendix done laparoscopically He had a pocket of fluid removed from his back Family history mom and dad both of VT in their 50s dad was 59 course: Cardiology consulted. Troponin trended. Chest pain resolved. He did have a stress test that was negative. Recommended to follow-up with his PCP. At time of discharge vitals were stable. Physical Exam Narrative: General well-developed well-nourished thin male in no acute cardiopulmonary distress Oropharynx Mallampati 1 edentulous CV regular rate and rhythm Lungs inspiratory and expiratory we wheezes with prolonged x-ray phase moderately good air movement Abdomen positive bowel tones soft nontender Calves no tenderness cords pretrip edema dorsal pedal pulses 2+ right 1+ left posterior tibial pulses 1+ right 2+ left Skin mildly diaphoretic Discharge Data Studies Completed and Pending Completed Studies During Hospitalization Category Date Time Status Cardiac Stress Test MIBI [Sestamibi Stress Test Request Exams 07/09/25 09:04 D raft ] Routine XR chest 1V portable [id number] Urgent Exams 07/08/25 21:03 Completed Pending at discharge Category Date Time Status Cardiac Stress Test MIBI [Sestamibi Stress Test Request Exams 07/09/25 14:34 Ordered ] Routine NM maria del carmen perf SPECT r/s* [id number] Routine Nuc Med 07/10/25 09:05 Taken CV. echo complete* [id number] Routine Ultrasound 07/09/25 11:25 Taken Radiology Impressions Chest X-Ray 07/08/25 21:03 IMPRESSION: Questionable infiltrate involving the right upper lobe, consider CT for further characterization. Laboratory Results WBC 8.22 10^3/uL (3.29-11.43) 07/08/25 21:20 RBC 3.87 10^6/uL (3.85-5.65) 07/08/25 21:20 Hgb 10.30 g/dL (11.27-16.99) L 07/08/25 21:20 Hct 34.0 % (37-53) L 07/08/25 21:20 MCV 87.9 fl (82-101) 07/08/25 21:20 MCH 26.6 pg (27-33) L 07/08/25 21:20 MCHC 30.3 g/dL (30-55) 07/08/25 21:20 RDW 12.6 % (12.1-15.1) 07/08/25 21:20 Plt Count 560 10^3/cmm (157-399) H 07/08/25 21:20 MPV 9.0 fL (7.4-10.4) 07/08/25 21:20 Neut % (Auto) 64.5 % 07/08/25 21:20 Lymph % (Auto) 16.4 % 07/08/25 21:20 Granite % (Auto) 12.8 % 07/08/25 21:20 Eos % (Auto) 4.0 % 07/08/25 21:20 Baso % (Auto) 1.1 % 07/08/25 21:20 Neut # (Auto) 5.30 10^3/uL (1.8-7.7) 07/08/25 21:20 Lymph # (Auto) 1.4 10^3/uL (0.8-4.8) 07/08/25 21:20 Granite # (Auto) 1.1 10^3/uL (0.2-0.9) H 07/08/25 21:20 Eos # (Auto) 0.3 10^3/uL (0.0-0.8) 07/08/25 21:20 Baso # (Auto) 0.1 10^3/uL (0.0-0.1) 07/08/25 21:20 Nucleated RBC % (auto) 0 % 07/08/25 21:20 Nucleated RBCs # 0.0 /100WBC 07/08/25 21:20 PT 13.50 SECONDS (12.1-14.9) 07/08/25 21:20 INR 0.97 (0.8-1.2) 07/08/25 21:20 APTT 36.6 SECONDS (23.9-36.7) 07/08/25 21:20 Sodium 140 mmol/L (136-145) 07/08/25 21:20 Potassium 4.2 mmol/L (3.5-5.1) 07/08/25 21:20 Chloride 99 mmol/L (98-107) 07/08/25 21:20 Carbon Dioxide 29 mmol/L (22-29) 07/08/25 21:20 Anion Gap 16.2 (5-19) 07/08/25 21:20 BUN 11 mg/dL (8-23) 07/08/25 21:20 Creatinine 0.9 mg/dL (0.7-1.2) 07/08/25 21:20 GFR Calculation 83.9 mL/min (90-130) L 07/08/25 21:20 Glucose 111 mg/dL (65-115) 07/08/25 21:20 Calculated Osmolality 290 mOsm/kg (285-295) 07/08/25 21:20 Calcium 9.4 mg/dL (8.5-10.5) 07/08/25 21:20 Total Bilirubin 0.2 mg/dL (0.15-1.2) 07/08/25 21:20 AST 12 U/L (0-40) 07/08/25 21:20 ALT 10 U/L (0-41) 07/08/25 21:20 Alkaline Phosphatase 82 U/L (40-130) 07/08/25 21:20 Troponin T Baseline 28 ng/L (0-15) H 07/08/25 21:20 Troponin T 120 Minute 31.10 ng/L (0-15) H 07/08/25 23:08 Delta Troponin T 3.10 ABS# (0-10) 07/08/25 23:08 Troponin T Hi Sens 6Hr 27.16 ng/L (0-15) H 07/09/25 03:25 Troponin T Hi Sens 6Hr Delta -0.84 ng/L (0-12) L 07/09/25 03:25 NT-Pro-B Natriuret Pep 168 pg/mL (0-125) H 07/08/25 21:20 Total Protein 6.0 g/dL (6.6-8.7) L 07/08/25 21:20 Albumin 3.4 g/dL (3.5-5.2) L 07/08/25 21:20 Globulin 2.6 g/dL (1.3-4.6) 07/08/25 21:20 Lipase 33 U/L (13-60) 07/08/25 21:20 Adenovirus (PCR) Not detected (NOT DETECT) 07/09/25 02:41 C. pneumoniae DNA (PCR) Not detected (NOT DETECT) 07/09/25 02:41 Coronavirus 229E (PCR) Not detected (NOT DETECT) 07/09/25 02:41 Human Metapneumovir PCR Not detected (NOT DETECT) 07/09/25 02:41 Influenza A (H1) PCR Not detected (NOT DETECT) 07/09/25 02:41 Influ A (H1/09) PCR Not detected (NOT DETECT) 07/09/25 02:41 Influenza A (H3) PCR Not detected (NOT DETECT) 07/09/25 02:41 Influenza Type A (PCR) Not detected (NOT DETECT) 07/09/25 02:41 Influenza Type B (PCR) Not detected (NOT DETECT) 07/09/25 02:41 M. pneumoniae (PCR) Not detected (NOT DETECT) 07/09/25 02:41 Parainfluenza 1 (PCR) Not detected (NOT DETECT) 07/09/25 02:41 Parainfluenza 2 (PCR) Not detected (NOT DETECT) 07/09/25 02:41 Parainfluenza 3 (PCR) Not detected (NOT DETECT) 07/09/25 02:41 Parainfluenza 4 (PCR) Not detected (NOT DETECT) 07/09/25 02:41 RSV Type A (PCR) Not detected (NOT DETECT) 07/09/25 02:41 RSV Type B (PCR) Not detected (NOT DETECT) 07/09/25 02:41 Entero/Rhino (PCR) Not detected (NOT DETECT) 07/09/25 02:41 SARS-CoV-2 (PCR) Not detected (NOT DETECT) 07/09/25 02:41 Vitals Last Vital Signs Temp 97.7 F 07/10/25 11:02 Pulse 85 07/10/25 11:02 Resp 18 07/10/25 11:02 BP 127/70 07/10/25 11:02 Pulse Ox 98 07/10/25 11:02 O2 Del Method Nasal Cannula 07/10/25 11:02 O2 Flow Rate 2 07/10/25 04:00 Discharge Plan Discharge Patient Disposition: Home Condition: Stable Prescriptions: Continued isosorbide mononitrate 30 mg tablet extended release 24 hr 30 mg PO DAILY Qty: 90 3RF metoprolol succinate 25 mg tablet extended release 24 hr 12.5 mg PO DAILY Qty: 45 3RF nitroglycerin 0.4 mg tablet, sublingual 0.4 mg sublingual Q5M PRN (Reason: chest pain) Qty: 25 2RF Rx Instructions: do not exceed 3 doses per episode aspirin 81 mg Tablet,Delayed Release (Dr/Ec) 81 mg PO DAILY tamsulosin 0.4 mg Capsule 0.4 mg PO QPM trazodone 100 mg Tablet 200 mg PO BEDTIME polyethylene glycol 3350 [Miralax] 17 gram/dose Powder 17 g PO DAILY food supplemt, lactose-reduced Liquid 1 ea PO QID omega 4-[id number]-fish oil [Fish Oil] 1,000 (120-180) mg Capsule 1 cap PO BID Combivent Respimat 20-100 mcg/actuation Mist 1 puff INHALATION QID Rx Instructions: space evenly during waking hours levocarnitine 500 mg Capsule 500 mg PO QAM Rx Instructions: must administer with a meal/food albuterol sulfate 90 mcg/actuation HFA aerosol inhaler 2 inh inhalation QID PRN (Reason: shortness of breath or wheezing) melatonin 5 mg Tablet 10 mg PO DAILY amlodipine 5 mg tablet 5 mg PO DAILY guaifenesin 400 mg Tablet 400 mg PO TID omeprazole 20 mg Tablet,Delayed Release (Dr/Ec) 20 mg PO BID Breztri Aerosphere 160-9-4.8 mcg/actuation HFA aerosol inhaler 2 inh inhalation BID Qty: 10.7 1RF ipratropium-albuterol 0.5 mg-3 mg(2.5 mg base)/3 mL Solution For Nebulization 3 ml INHALATION QID MDD COPD PRN (Reason: Shortness Of Breath Or Wheezing) docusate sodium 100 mg Capsule 100 mg PO BID PRN (Reason: Constipation) cholecalciferol (vitamin D3) [Vitamin D3] 25 mcg (1,000 unit) Capsule 25 mcg PO DAILY dextromethorphan-guaifenesin 10-100 mg/5 mL Syrup 10 ml PO Q4H Qty: 237 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] - 07/15/25 9:00 am Referral Note: Discharge Activity: Resume usual activity Patient Instructions: COPD, Pneumonia (GEN), COPD Stoplight, Opioid Safety, Pneumonia Stoplight, Patient Portal & Sarah Instructions Activity Restrictions/Additional Instructions: up ad ino, take medicnies as prescribed, followup with pcp Discharge Attestations Time Spent in Discharge Care*: other Status at Discharge: Cognitive status at discharge: cognitively intact , Behavioral status at discharge: cooperative , Quality Metrics Clinical Quality Measures [ No reported AMI, CVA or VTE this stay] Coding Level of Care Code 79079 Diagnoses Chest pain R07.9 Cigarette nicotine dependence with other nicotine-induced disorder F17.218 Nicotine product type: cigarettes Substance use status: other nicotine-induced disorder Tobacco dependence with current use F17.200 Essential hypertension I10
--- NOTE | 2025-07-10 15:52 | P.PN_ITS ---
<Statement entered by Gideon Granados MD - 07/10/25 18:10> Patient was evaluated and cared for in conjunction with an advanced practice practitioner. I personally reviewed the stress test and echocardiogram. I discussed the patient in detail with the advanced practice practitioner. Please see their note for complete assessment and agreed upon plan of care for the patient. Subjective 2 Subjective: Patient doing well today. No major complaints. Stress test was normal with no evidence of ischemia. Vitals/I&O/Wt Last Vital Signs Temp 97.7 F 07/10/25 11:02 Pulse 92 07/10/25 11:39 Resp 20 H 07/10/25 11:39 BP 127/70 07/10/25 11:02 Pulse Ox 99 07/10/25 11:39 O2 Del Method Nasal Cannula 07/10/25 11:39 O2 Flow Rate 2 07/10/25 11:39 07/10/25 07/10/25 07/10/25 06:59 14:59 22:59 Output Total 200 / 1250 200 / 200 Balance -200 / 190 -200 / -200 Weight last 48 hrs Weight 143 lb Weight 171 lb Weight 170 lb Weight 112 lb Weight 112 lb 8 oz Weight 114 lb 9.6 oz Physical Exam 2 Narrative: General: No apparent distress HENMT: normoceophalic Muskuloskeletal: Full ROM Respiratory: Normal respiratory effort, clear to auscultation bilaterally throughout all lung garcia, no use of accessory muscles Cardio: No JVD, regular rate, regular rhythm, S1 S2 normal, no murmurs, peripheral pulses 2+ radial palpated bilaterally Extremities: Full ROM, normal, normal capillary refill, no cyanosis or edema Neuro: Alert and oriented x4, no focal motor deficits Psych: Affect normal, denies suicidal ideation, mental status grossly normal Skin: No rashes or lesions noted, no wounds Data 07/08/25 21:20 07/08/25 21:20 A&P Assessment and plan 1. Chest pain: 2. Nicotine dependence: 3. Tobacco dependence with current use: 4. Essential hypertension: Plan: Patient's stress test was normal. EF normal without wall motion abnormalities or significant valvular abnormalities. At this time recommend EGD/GI workup for patient as he has difficulty swallowing. Chest pain most likely noncardiac in nature. Continue to monitor for worsening symptoms. At this time, cardiology will sign off of this patient. As always, if our assistance is needed in the future, please consult us. Thank you for allowing us to take care of this very pleasant patient. PDMP PDMP Reviewed: Not Reviewed Attestations 2 Medical Necessity Statement*: Deferred to primary Coding Level of Care Code Acute Code for Chg Fwd Diagnoses Chest pain R07.9 Nicotine dependence F17.200 Tobacco dependence with current use F17.200 Essential hypertension I10
== END 2025-07-10 16:08 | disposition home or self-care (01) ==
LOC: ER 23:20 → MEDSURG 07-09 00:02
PROVIDERS: Physician Assistant; Admitting Provider Internal Medicine; Emergency Provider Emergency Medicine; PCP Family Medicine; Visit Provider Internal Medicine
DX: R07.9 Chest pain, unspecified (principal); I10 Essential (primary) hypertension; F17.218 Nicotine dependence, cigarettes, with other nicotine-induced disorders; K21.9 Gastro-esophageal reflux disease without esophagitis; Z79.82 Long term (current) use of aspirin; J44.9 Chronic obstructive pulmonary disease, unspecified; I25.2 Old myocardial infarction; J96.10 Chronic respiratory failure, unspecified whether with hypoxia or hypercapnia
CPT/HCPCS: 36415; 71045; 78452; 80053; 83690; 83880; 84484; 85025; 85610; 85730; 87486; 87581; 87633; 93005; 93017; 93306; 94640; 94664; 96365; 96372; 96375; 99285; A9500; G0378; J1650; J1956; J2785; J2919; J7613; J7626; J9999

== ENCOUNTER 2025-07-18 20:54 | Emergency (ER) | payer OTHER, SELFPAY ==
--- OUTSIDE RECORDS SUMMARY | 2024-07-30 07:50 | XMS_ITS ---
Author Organization [facility] Address [address] [place] [address] Care Team Providers Care Airline Customer Service Agent Name Role Phone Judith Lieberman APRN Primary Care Provider Unav ailAngel Luis Alcocer Unavailable [phone] [place], [place] Unavailable Unavailable REASON FOR VISIT [phone] Encounters Encounter Location Date Provider Diagnosis [facility] [address] [place] [address] [place] [address] 07/30/2024 Angel Luis Sebastian Plan Of Treatment Next Appt Details Provider Name:Angel Luis Ibarraoscar, 10/16/2025 02:10:00 PM, [address] [place] [address] [place], [address], Progress Notes * CHI KEYS ADOB:1955 (69 yo M)Acc No.[id number]:07/30/2024 Progress Notes Patient: CHI MCGINNIS Provider: Jalil Sebastian MD :1955 A ge:68 Y S ex:Male Date:07/30/2024 Address:[address] [place] [phone] Pcp:Judith Lieberman APRN Subjective: * Chief Complaints: * 6 [id number] Care Plan Details* * Electronic signature of Evelyn Sebastian MD on 07/18/2025 at 09:00 PM CUSTOM MARINE CANVAS FABRICATOR Sign off status: Pending * Provider: Jalil Sebastian MD Date: 1 Generated for Gabrielle mcclendon/Jourdan/Katsmitting on: 1 09/18/2024 09:00 PM CUSTOM MARINE CANVAS FABRICATOR
--- OUTSIDE RECORDS SUMMARY | 2024-08-06 06:50 | XMS_ITS ---
Author Organization [facility] Address [address] [place] [address] Care Team Providers Care Inspector And Tester Name Role Phone Judith Lieberman APRN Primary Care Provider Unav ailAngel Luis Alcocer Unavailable [phone] [place], [place] Unavailable Unavailable REASON FOR VISIT [phone] Encounters Encounter Location Date Provider Diagnosis [facility] [address] [place] [address] [place] [address] 08/06/2024 Angel Luis Sebastian Plan Of Treatment Next Appt Details Provider Name:Angel Luis Sebastian, 10/16/2025 02:10:00 PM, [address] [place] [address] [place], [address], Progress Notes * CHI KEYS ADOB:1955 (69 yo M)Acc No.[id number]:08/06/2024 Progress Notes Patient: CHI MCGINNIS Provider: Jalil Sebastian MD :1955 A ge:68 Y S ex:Male Date:08/06/2024 Address:[address] [place] [phone] Pcp:Judith Lieberman APRN Subjective: * Chief Complaints: * 6 [id number] Care Plan Details* * Electronic signature of Evelyn Sebastian MD on 07/18/2025 at 08:59 PM SENIOR USER EXPERIENCE ARCHITECT Sign off status: Pending * Provider: Jalil Sebastian MD Date: 0 08/06/2024 Generated for Gabrielle mcclendon/Jourdan/Katsmitting on: 1 09/18/2024 08:59 PM SENIOR USER EXPERIENCE ARCHITECT
--- OUTSIDE RECORDS SUMMARY | 2024-08-16 05:30 | XMS_ITS ---
Author Organization [facility] Address [address] [place] [address] Care Team Providers Care Business Practices Supervisor Name Role Phone Judith Lieberman APRN Primary Care Provider Unav ailAngel Luis Alcocer Unavailable [phone] [place], [place] Unavailable Unavailable REASON FOR VISIT [phone] Encounters Encounter Location Date Provider Diagnosis [facility] [address] [place] [address] [place] [address] 08/16/2024 Angel Luis Sebastian Plan Of Treatment Next Appt Details Provider Name:Angel Luis Sebastian, 10/16/2025 02:10:00 PM, [address] [place] [address] [place], [address], Progress Notes * CHI KEYS ADOB:1955 (69 yo M)Acc No.[id number]:08/16/2024 Progress Notes Patient: CHI MCGINNIS Provider: Jalil Sebastian MD :1955 A ge:68 Y S ex:Male Date:08/16/2024 Address:[address] [place] [phone] Pcp:Judith Lieberman APRN Subjective: * Chief Complaints: * 6 [id number] Care Plan Details* * Electronic signature of Evelyn Sebastian MD on 07/18/2025 at 09:00 PM RECORDS MANAGEMENT COORDINATOR Sign off status: Pending * Provider: Jalil Sebastian MD Date: 0 08/16/2024 Generated for Gabrielle mcclendon/Jourdan/Katsmitting on: 1 09/18/2024 09:00 PM RECORDS MANAGEMENT COORDINATOR
--- OUTSIDE RECORDS SUMMARY | 2024-08-22 05:30 | XMS_ITS ---
Author Organization [facility] Address [address] [place] [address] Care Team Providers Care Pack Operator Name Role Phone Judith Lieberman APRN Primary Care Provider Unav ailAngel Luis Alcocer Unavailable [phone] [place], [place] Unavailable Unavailable REASON FOR VISIT [phone] Encounters Encounter Location Date Provider Diagnosis [facility] [address] [place] [address] [place] [address] 08/22/2024 Angel Luis Sebastian Plan Of Treatment Next Appt Details Provider Name:Angel Luis Sebastian, 10/16/2025 02:10:00 PM, [address] [place] [address] [place], [address], Progress Notes * CHI KEYS ADOB:1955 (69 yo M)Acc No.[id number]:08/22/2024 Progress Notes Patient: CHI MCGINNIS Provider: Jalil Sebastian MD :1955 A ge:68 Y S ex:Male Date:08/22/2024 Address:[address] [place] [phone] Pcp:Judith Lieberman APRN Subjective: * Chief Complaints: * [id number] Care Plan Details* * Electronic signature of Evelyn Sebastian MD on 07/18/2025 at 08:59 PM DRIVING TEACHER Sign off status: Pending * Provider: Jalil Sebastian MD Date: 0 08/22/2024 Generated for Gabrielle mcclendon/Jourdan/Katsmitting on: 1 09/18/2024 08:59 PM DRIVING TEACHER
--- OUTSIDE RECORDS SUMMARY | 2024-12-10 07:30 | XMS_ITS ---
Author Organization [facility] Address [address] [place] [address] Care Team Providers Care Validation Consultant Name Role Phone Judith Lieberman APRN Primary Care Provider Unav ailable Angel Luis Sebastian Unavailable [phone] [place], [place] Unavailable Unavailable Encounters Encounter Location Date Provider Diagnosis [facility] [address] [place] [address] [place] [address] 12/10/2024 Angel Luis Sebastian Plan Of Treatment Next Appt Details Provider Name:Angel Luis Antonieta Jaz, 10/16/2025 02:10:00 PM, [address] [place] [address] DR FL[address] [place] [address], [place], [phone], Progress Notes * CHI KEYS ADOB:1955 (69 yo M)Acc No.[id number]:12/10/2024 Progress Notes Patient: CHI MCGINNIS Provider: Jalil Sebastian MD :1955 A ge:69 Y S ex:Male Date:12/10/2024 Address:[address] [place], [place] [phone] Pcp:Judith Lieberman APRN Care Plan Details* * Electronic signature of Evelyn Sebastian MD on 07/18/2025 at 08:59 PM IT SECURITY MANAGER Sign off status: Pending * Provider: Jalil Sebastian MD Date: 0 12/10/2024 Generated for Printi ng/Fagayatrig/eTransmitting on: 1 09/18/2024 08:59 PM IT SECURITY MANAGER
--- OUTSIDE RECORDS SUMMARY | 2024-12-17 08:30 | XMS_ITS ---
Author Organization [facility] Address [address] [place] [address] Care Team Providers Care Agriculture Instructor Name Role Phone Judith Lieberman APRN Primary Care Provider Angel Luis Shields Unavailable [phone] [place], [place] Unavailable Unavailable REASON FOR VISIT Shortness of breath Encounters Encounter Location Date Provider Diagnosis [facility] [address] [place] [address] [place] [address] 12/17/2024 Angel Luis Jaz Solitary pulmonary nodule [...] Luis Fung Staceyoscar, 10/16/2025 02:10:00 PM, [address] [place] [address] [address] MOTA, [place], [address], History and Physical Notes * HPI (History [...] * CHI KEYS ADOB:1955 (69 yo M)Acc No.[id number]:12/17/2024 Progress Notes Patient: Shwetha GERSONCHI Provider: Jalil Sebastian MD :1955 A ge:69 Y S ex:Male Date:12/17/2024 Address:[address] [place], [place] [phone] Pcp:Judith Lieberman APRN Subjective: * Chief Complaints: [...] Sebastian MD on 07/18/2025 at 08:59 PM PHARMACY BILLING ADJUDICATOR Sign off status: Pending * Provider: Jalil Sebastian MD Date: 0 12/17/2024 Generated for Gabrielle mcclendon/Jourdan/eTransmitting on: 1 09/18/2024 08:59 PM PHARMACY BILLING ADJUDICATOR
--- OUTSIDE RECORDS SUMMARY | 2025-07-17 05:40 | XMS_ITS ---
Author Organization [facility] Address [address] [place] [address] Care Team Providers Care Motor And Chassis Inspector Name Role Phone Judith Lieberman APRN Primary Care Provider Ryland IbarraoscarAngel Luis Unavailable [phone] [place], [place] Unavailable Unavailable REASON FOR VISIT Shortness of [...] Active Encounters Encounter Location Date Provider Diagnosis [facility] [address] [place] [address] [place] [address] 07/17/2025 Angel Luis Sebastian Solitary pulmonary nodule [...] Name:Angel Luis Fung Jaz, 10/16/2025 02:10:00 PM, [address] [place] [address] [address], [place], [address], History and Physical Notes * HPI (History [...] * CHI KEYS ADOB:1955 (69 yo M)Acc No.[id number]:07/17/2025 Progress Notes Patient: CHI MCGINNIS Provider: Jalil Sebastian MD :1955 A ge:69 Y S ex:Male Date:07/17/2025 Address:[address] [place], [place] [phone] Pcp:Judith Lieberman APRN Subjective: * Chief Complaints: [...] Sebastian MD on 07/18/2025 at 09:00 PM TECHNOLOGY ARCHITECT Sign off status: Pending * Provider: Jalil Sebastian MD Date: 09/17/2024 Generated for Gabrielle mcclendon/Jourdan/Danniitting on: 09/18/2024 09:00 PM TECHNOLOGY ARCHITECT
[2025-07-18] VITALS (15 sets, daily range): BP systolic 95–126; BP diastolic 59–68; PULSE 77–87; RESP 12–24; TEMP 36.8; O2SAT 96–99; BMI 18.1
--- OUTSIDE RECORDS SUMMARY | 2025-07-18 21:00 | XMS_ITS | Clinical Summary ---
Author Organization [facility] Address [address] [facility] [address] [place] [address] Phone Care Team Providers Care Flight Service Specialist Name Role Phone Ellie Walker MD Primary Care Provider [phone] Allergies Active Allergy Reactions Criticality Noted Date Comments Megestrol Unknown 04/03/2025 Medications aspirin (ECOTRIN EC) 81 mg Tablet, Delayed Release (E.C.) Take 81 mg by mouth daily. Active ipratropium-albut Kiersten (DUONEB) 0.5 mg-3 mg(2.5 mg base)/3 mL Solution for Nebulization Take 3 mL by inhalation 4 times daily. Active albuterol sulfate HFA 90 mcg/actuation aerosol inhaler Take 1 Puff by inhalation every 6 hours as needed for Shortness of Breath. Active fluticasone propionate (FLONASE) 50 mcg/spray [place], Suspension nasal inhaler Administer 1 [place] in each nostril 2 times daily. Active [...] nightly as needed. Active Breztri Aerosphere 160 mcg-9mcg-4.8mcg/a ctuation HFA aerosol inhaler Take 2 Puffs by inhalation 2 times daily. Active guaiFENesin (HUMIBID) 400 mg Tablet Take 400 mg by mouth every 4 hours. Active predniSONE (DELTASONE) 5 mg tablet 50 mg x 2 days 40 mg x 2 days 30 mg x 2 days 20 mg x 2 days 10 mg x 2 days 5 mg x 2 days 62 Tablet Active Active Problems Problem Noted Date Diagnosed [...] Department Care Team Description 06/02/2025 11:08 PM LAND SURVEY TECHNICIAN - 06/03/2025 10:07 AM [facility] Emergency [facility] Emergency Medicine [address] [place] [address] Antonio Root MD Acute bronchitis, unspecified organism (Primary Dx); COPD with exacerbation (CMS/HCC) Discharge Disposition: Home or Self Care 06/02/2025 Travel 04/30/2025 External Device Data STL ABSTRACTION Provider, Abstract from Last 3 Months Immunizations Immunization Administration Dates Next Due (ADACEL/BOOSTRIX)(10 YR UP) TDAP VACCINE, 0.5ML, IM 12/06/2022,07/22/2017,12/22/2007 (PNEUMOVAX 23)(50 YRS UP) PN EUMOCOCCAL POLYSACCHARIDE (PPV23) 0.5 ML, IM 12/11/2018,04/25/2017,12/22/2007 (PREVNAR 20)(6 WKS UP) PNEUM OCOCCAL CONJUGATE VACCINE 20-VALENT (PCV20), POLYSACCHARIDE [id number] CONJUGATE, ADJUVANT 0.5 ML (PF) IM 01/26/2024 [...] worry about transportation for future doctor visits, hot die picker medication, etc.? No 2024 Housing Stability Answer [...] on file Legal Sex Male 12:54 PM LAND SURVEY TECHNICIAN Gender Identity Not on file Sexual Orientation Not on file Last Filed Vital Signs Vital Sign Reading Time Taken Comments Blood Pressure 134/68 06/03/2025 10:00 AM LAND SURVEY TECHNICIAN Pulse 94 06/03/2025 10:00 AM LAND SURVEY TECHNICIAN Temperature 36.6 C (97.9 F) 06/02/2025 11:12 PM LAND SURVEY TECHNICIAN Respiratory Rate 20 06/03/2025 10:0 0 AM LAND SURVEY TECHNICIAN Oxygen Saturation 99% 06/03/2025 10: 00 AM LAND SURVEY TECHNICIAN Inhaled Oxygen Concentration - - Weight 53.4 kg (117 lb 12.8 oz) 025 11:12 PM LAND SURVEY TECHNICIAN Height 162.6 cm (5' 4 ) 06/02/2025 11:1 2 PM LAND SURVEY TECHNICIAN Body Mass Index 20.22 06/02/2025 11:12 PM LAND SURVEY TECHNICIAN Plan of Treatment Health Maintenance Due Date [...] 5TH GEN Timed Study 06/03/2025 1:25 AM LAND SURVEY TECHNICIAN XR CHEST PA OR AP 1 VW Stat 06/02/2025 11:48 PM LAND SURVEY TECHNICIAN COVID-19 ANTIGEN Stat 06/02/2025 11:3 0 PM LAND SURVEY TECHNICIAN INFLUENZA VIRUS A AND B, ANTIGEN DETECTION Stat 06/02/2025 11:30 PM LAND SURVEY TECHNICIAN TROPONIN BASELINE, 5TH GEN Stat 06/02/2025 11:28 PM LAND SURVEY TECHNICIAN LACTIC ACID Stat 06/02/2025 11:28 PM LAND SURVEY TECHNICIAN BRAIN NATRIURETIC PEPTIDE, BNP OR PROBNP Stat 06/02/2025 11:28 PM LAND SURVEY TECHNICIAN COMPREHENSIVE METABOLIC PANEL Stat 06/02/2025 11:28 PM LAND SURVEY TECHNICIAN CBC WITH DIFFERENTIAL Stat 06/02/2025 11:28 PM LAND SURVEY TECHNICIAN from Last 3 Months Results * (ABNORMAL) TROPONIN 2 HR, 5TH GEN (06/03/2025 1:25 AM LAND SURVEY TECHNICIAN) TROPONIN T, 2 HR 5TH GEN 33(H) <=15 ng/L 06/03/2025 1:52 AM LAND SURVEY TECHNICIAN [facility] DELTA 2HR TROPONIN T -2 See Interp. 06/03/2025 1:52 AM LAND SURVEY TECHNICIAN [facility] Blood BLOOD SPECIMEN / Unknown Collection / Unknown 06/03/2025 1:25 AM LAND SURVEY TECHNICIAN 06/03/2025 1:30 AM LAND SURVEY TECHNICIAN Narrative [facility] - 06/03/2025 1:52 AM LAND SURVEY TECHNICIAN Troponin elevated. Delta not changing. us Antonio Roto MD CHEMISTRY ORDERABLES Fin al Result [facility] CLIA # [id number] [address] [place] [address] * XR CHEST PA OR AP 1 VW (06/02/2025 11:48 PM LAND SURVEY TECHNICIAN) Anatomical Region Laterality Modality Chest Computed Radiogr aphy 06/02/2025 11:4 8 PM LAND SURVEY TECHNICIAN Impressions 06/03/2025 12:55 AM LAND SURVEY TECHNICIAN IMPRESSION: No focal consolidation. Radiographic evidence of COPD. Narrative 06/03/2025 12:55 AM LAND SURVEY TECHNICIAN EXAM: XR CHEST PA OR AP 1 [...] Result * COVID-19 ANTIGEN (06/02/2025 11:30 PM LAND SURVEY TECHNICIAN) COVID-19 ANTIGEN Presumptive Negative Presumptive Negative 06/02/2025 11:56 PM LAND SURVEY TECHNICIAN [facility] Upper Respiratory ANTERIOR NARES SWAB / Unknown Collection / Unknown 06/02/2025 11:30 PM LAND SURVEY TECHNICIAN 06/02/2025 11:43 PM LAND SURVEY TECHNICIAN [facility] - 06/02/2025 11:56 PM LAND SURVEY TECHNICIAN Sherrie SARS antigen test has been authorized by FDA under an emergency use authorization (EUA) and has been authorized only for the detection of proteins from SARS-CoV-2 and influenza, not for any other viruses or pathogens. Sherrie SARS Antigen STAN is intended for the simultaneous qualitative detection and differentiation of nucleocapsid protein antigen from SARS-CoV-2 directly from nasopharyngeal (HAND SPLITTER) and nasal (NS) swab specimens collected from [...] with at least 48 hours between tests. us Antonio Root MD MICROBIOLOGY - GENERAL O RDERABLES Final Result Performing Organization Address [facility] Co de Phone Number [facility] [id number] [address] [place] [address] * INFLUENZA VIRUS A AND B, ANTIGEN DETECTION (06/02/2025 11:30 PM LAND SURVEY TECHNICIAN) Pathologist [facility] INFLUENZA A AG NOT DETECTED Not Detected 06/02/2025 11:57 PM LAND SURVEY TECHNICIAN [facility] INFLUENZA B AG NOT DETECTED Not Detected 06/02/2025 11:57 PM LAND SURVEY TECHNICIAN [facility] Upper Respiratory ENTIRE NASOPHARYNX / Unknown Collection / Unknown 06/02/2025 11:30 PM LAND SURVEY TECHNICIAN 06/02/2025 11:43 PM LAND SURVEY TECHNICIAN [facility] - 06/02/2025 11:57 PM LAND SURVEY TECHNICIAN Negative results do not rule out infection. If clinically indicated, consider PCR testing which is more sensitive than antigen testing. If PCR testing is desired, consult with your local laboratory as sample recollection may be required. us Antonio Root MD MICROBIOLOGY - GENERAL O RDERABLES Final Result Performing Organization Address [facility] Co de Phone Number [facility] [id number] [address] [place] [address] * (ABNORMAL) TROPONIN BASELINE, 5TH GEN (06/02/2025 11:28 PM LAND SURVEY TECHNICIAN) TROPONIN T, BASELINE 5TH GEN 35(H) <=15 ng/L 06/03/2025 12:00 AM LAND SURVEY TECHNICIAN [facility] Blood Collection / Unknown 06/02/2025 11:28 PM LAND SURVEY TECHNICIAN 06/02/2025 11:43 PM LAND SURVEY TECHNICIAN [facility] - 06/03/2025 12:00 AM LAND SURVEY TECHNICIAN Troponin elevated. us Antonio Root MD CHEMISTRY ORDERABLES Fin al Result [facility] CLIA # [id number] [address] [place] [address] * LACTIC ACID (06/02/2025 11:28 PM LAND SURVEY TECHNICIAN) LACTIC ACID 1.4 <=2.0 mmol/L 06/02/2025 11:56 PM [facility] Blood BLOOD SPECIMEN / Unknown Collection / Unknown 06/02/2025 11:28 PM LAND SURVEY TECHNICIAN 06/02/2025 11:43 PM LAND SURVEY TECHNICIAN Antonio Root MD CHEMISTRY ORDERABLES Fin al Result Performing Organization Address [facility]/ZIP Co de Phone Number [facility] # [id number] [address] [place] [address] * (ABNORMAL) CBC WITH DIFFERENTIAL (06/02/2025 11:28 PM LAND SURVEY TECHNICIAN) WBC 7.8 4.2 - 9.1 K/uL 06/02/2025 11:50 PM [facility] RBC 4.01(L) 4.63 - 6.08 M/uL 06/02/2025 11:50 PM [facility] HEMOGLOBIN 10.7(L) 13.7 - 17.5 g/dL 06/02/2025 11:50 PM [facility] HEMATOCRIT 34.9(L) 40.1 - 51.0 % 06/02/2025 11:50 PM [facility] MCV 87.0 79.0 - 92.2 fL 06/02/2025 11:50 PM [facility] MCH 26.7 25.7 - 32.2 pg 06/02/2025 11:50 PM [facility] MCHC 30.7(L) 32.3 - 36.5 g/dL 06/02/2025 11:50 PM [facility] RDW 13.0 11.0 - 14.5 % 06/02/2025 11:50 PM [facility] RDW-STDEV 41.0 36.9 - 56.9 fL 06/02/2025 11:50 PM [facility] PLATELETS 278 130 - 400 K/uL 06/02/2025 11:50 PM [facility] MPV 10.0 10.0 - 14.8 fL 06/02/2025 11:50 PM [facility] NEUTROPHILS 62 34 - 68 % 06/02/2025 11:50 PM [facility] LYMPHOCYTES 16(L) 22 - 53 % 06/02/2025 11:50 PM [facility] MONOCYTES 13(H) 5 - 12 % 06/02/2025 11:50 PM [facility] EOSINOPHILS 6 1 - 7 % 06/02/2025 11:50 PM [facility] BASOPHILS 1 0 - 1 % 06/02/2025 11:50 PM [facility] IMMATURE GRANULOCYTES 1 % 06/02/2025 11:50 PM [facility] NEUTROPHIL ABSOLUTE 4.85 1.78 - 5.38 K/uL 06/02/2025 11:50 PM [facility] LYMPHOCYTE ABSOLUTE 1.27 1.20 - 3.40 K/uL 06/02/2025 11:50 PM [facility] MONOCYTE ABSOLUTE 1.03(H) 0.30 - 0.82 K/uL 06/02/2025 11:50 PM [facility] EOSINOPHIL ABSOLUTE 0.48 0.04 - 0.54 K/uL 06/02/2025 11:50 PM [facility] BASOPHILS ABSOLUTE 0.08 0.01 - 0.08 K/uL 06/02/2025 11:50 PM [facility] IMMATURE GRANULOCYTES ABSOLUTE 0.06 K/uL 06/02/2025 11:50 PM [facility] Blood Collection / Unknown 06/02/2025 11:28 PM LAND SURVEY TECHNICIAN 06/02/2025 11:43 PM LAND SURVEY TECHNICIAN Antonio Roto MD HEMATOLOGY ORDERABLES Fi nal Result Performing Organization Address City/[facility]/ZIP Co de Phone Number [facility] CLIA # [id number] [address] [place] [address] * (ABNORMAL) BRAIN NATRIURETIC PEPTIDE, BNP OR PROBNP (06/02/2025 11:28 PM LAND SURVEY TECHNICIAN) PROBNP, N TERMINAL 130(H) 0 - 125 pg/mL 06/03/2025 12:00 AM [facility] Comment: INTERPRETIVE COMMENT based on diagnosis: Diagnostic [...] Blood Collection / Unknown 06/02/2025 11:28 PM LAND SURVEY TECHNICIAN 06/02/2025 11:43 PM LAND SURVEY TECHNICIAN Antonio Root MD CHEMISTRY ORDERABLES [facility] al Result Performing Organization Address City/[facility] Co de Phone Number [facility] CLIA # [id number] [address] [place] [address] * COMPREHENSIVE METABOLIC PANEL (06/02/2025 11:28 PM LAND SURVEY TECHNICIAN) SODIUM 141 136 - 145 mmol/L 06/03/2025 12:00 AM [facility] POTASSIUM 3.9 3.5 - 5.1 mmol/L 06/03/2025 12:00 AM [facility] CHLORIDE 103 98 - 107 mmol/L 06/03/2025 12:00 AM [facility] CO2 29 22 - 29 mmol/L 06/03/2025 12:00 AM [facility] CALCIUM 9.4 8.8 - 10.2 mg/dL 06/03/2025 12:00 AM [facility] BUN 10 8 - 23 mg/dL 06/03/2025 12:00 AM [facility] CREATININE 0.99 0.67 - 1.17 mg/dL 06/03/2025 12:00 AM [facility] GLUCOSE 95 74 - 99 mg/dL 06/03/2025 12:00 AM [facility] TOTAL PROTEIN 6.7 6.6 - 8.7 g/dL 06/03/2025 12:00 AM [facility] ALBUMIN 4.0 3.5 - 5.2 g/dL 06/03/2025 12:00 AM [facility] BILIRUBIN TOTAL 0.2 0.0 - 1.2 mg/dL 06/03/2025 12:00 AM [facility] ALKALINE PHOSPHATASE 102 40 - 129 U/L 06/03/2025 12:00 AM [facility] AST 22 0 - 50 U/L 06/03/2025 12:00 AM [facility] ALT 12 0 - 50 U/L 06/03/2025 12:00 AM [facility] GFR >60 >=60 mL/min/1.7 3 sq meter 06/03/2025 12:00 AM [facility] Comment:eGFR calculated with 2020 CKD-EPI equation. Vegetarian diet, extremely high or low muscle mass, and may affect results. Cystatin C with Glomerular Filtration Rate is a suitable alternative for these patients. ANION GAP 9 5 - 20 mmol/L 06/03/2025 12:00 AM [facility] Blood Collection / Unknown 06/02/2025 11:28 PM LAND SURVEY TECHNICIAN 06/02/2025 11:43 PM LAND SURVEY TECHNICIAN Antonio Root MD CHEMISTRY ORDERABLES Fin al Result [facility] CLIA # [id number] [address] [place] [address] from Last 3 Months Insurance [place]ICAID [place] AETNA [facility] FOR LIFE [facility] OPTUM Advance Directives For more information, please contact: [phone] * Full Code (Latest Code Status on [...] Non-Invasive (i.e. BiPAP, CPAP): Yes Care Teams Flight Service Specialist Relationship Specialty Start Date End Date Ellie Walker MD [address] [id number] PCP - General Family Practice 09/06/24
--- OUTSIDE RECORDS SUMMARY | 2025-07-18 21:00 | XMS_ITS | Patient Health Record ---
Author Organization [facility] Address [address] [place] [address] Care Team Providers Care Customer Insight Analyst Name Role Phone Judith Lieberman APRN Primary Care Provider Unav ailable Angel Luis Sebastian Unavailable [phone] [place] Unavailable Unavailable Allergies No Known Allergies Results Component Value Reference Range Notes Schedule Confirmation Reviewed date:01/15/2025 11:59:07 AM Interpretation: Performing Lab: Notes/Report: CT Chest w/o Contrast zzzPET Skull Base to Mid [facility]-77580 Reviewed date:08/14/2024 03:11:27 PM Interpretation: Performing Lab: Notes/Report: See Below For Report PET study was performed at [facility]. Read See Below For Report CT Chest w/o Contrast diagno [facility]-41768 Reviewed date:01/15/2025 11:59:07 AM Interpretation: Performing Lab: Notes/Report: [email or web address]=[id number]&org=iSite zzzPET Skull Base to Mid [facility]-34348 Reviewed date:08/14/2024 01:05:01 PM Interpretation: Performing Lab: Notes/Report: [id number]&org=iSite CT Chest w/o Contrast diagno stic-[id number] Reviewed date:01/16/2025 03:09:53 PM Interpretation: Performing Lab: Notes/Report: See Below For Report CT Chest w/o Contrast Diagnosis Description: Solitary pulmonary nodule Read See Below For Report Schedule Confirmation Reviewed date:07/04/2025 03:47:36 PM Interpretation: Performing Lab: Notes/Report: CT Chest w/o Contrast Schedule Confirmation Reviewed date:01/14/2025 03:29:20 PM Interpretation: Performing Lab: Notes/Report: CT Chest w/o Contrast Reason For Referral Reason Solitary Pulm Nodule : [place] - Scheduled Diagnosis 1 Solitary pulmonary n odule (R91.1) Referring Provider First Name Tawanda early Referring Provider Last Name [place] Referring Provider [facility] Referred Organization [facility] Referred Provider Angel Luis Sebastian Referred Address [address] [place] [address] [address], [place],[address], Referred Provider Specialty Pulmonary Ramya crockett Referral Priority Routine Reason COPD, O2 dependent, [...] in remission (F17.211) Referring Provider First Name Tawanda early Referring Provider Last Name [place] Referring Provider [facility] Referred Organization [facility] Referred Provider Angel Luis Sebastian Referred Address [address] [place] [address] [address],[place], [place],[address], Referred Provider Specialty Pulmonary Ramya crockett Referral Priority Routine Medications Medication SIG (Take, Route, Frequency, Duration) Notes Start Date End Date Status Cholecalciferol 25 MCG (1000 UT) Capsule 1 capsule Orally Once a day Active DuoNeb Not-Taking Breztri Aerosphere 160-9-4.8 MCG/ACT Aerosol 2 puffs Inhalation Twice a day Active Cyanocobalamin 1000 MCG Tablet 1 tablet Orally Once a day Not-Taking Aspirin 81 81 MG Tablet Delayed Release 1 tablet Orally Once a day Active Azithromycin 250 MG Tablet as directed Orally Once a day Not-Taking amLODIPine Besylate 5 MG Tablet 1 tablet Orally Once a day Active traZODone HCl 150 MG Tablet 1 tablet at bedtime Orally Once a day Active Roflumilast 500 MCG Tablet 1 tablet Orally Once a day; Duration: 30 days 01/15/2025 01/10/2026 Active guaiFENesin DM Activ e Fluticasone Propionate 50 MCG/ACT Suspension 1 spray in each nostril Nasally Twice a day Active Topiramate 50 MG Tablet 2 Tablets Orally Once a day Not-Taking Docusate Calcium 240 MG Capsule 1 capsule as needed Orally Once a day Active Nicotine Polacrilex 4 MG Lozenge 1 lozenge as needed Mouth/Throat every 8 hrs Not-Taking Dextrose 24 gm/31 gm squeeze tube Active Magnesium Citrate No t-Taking predniSONE 10 MG Tablet 1 tablet Orally BID Active Albuterol Sulfate HFA 108 (90 Base) MCG/ACT Aerosol Solution 1 puff as needed Inhalation every 4 hrs Active Omeprazole 40 MG Capsule Delayed Release 1 capsule 1/2 to 1 hour before morning meal Orally Once a day Active Memantine HCl 5 MG Tablet 1 tablet Orally Once a day Active Social History Tobacco Use: Social History Observation [...] W/U Status Risk Notes Problem Tobacco user (218283380) Nicotine dependence, cigarettes, uncomplicated (F17.210) Active confirmed Problem Tobacco user (304724021) Nicotine dependence, cigarettes, in remission (F17.211) Active confirmed Problem Solitary pulmonary nodule (437857362) Solitary pulmonary nodule (R91.1) Active confirmed Problem Radiology result abnormal (287651202) Abnormal chest CT (R93.89) Active confirmed Problem Chronic obstructive pulmonary disease (15226067) Stage 3 severe COPD by GOLD classification (J44.9) Active confirmed Problem Chronic respiratory failure (26578359) Chronic hypoxic respiratory failure (J96.11) Active confirmed [...] 01/15/2025 Encounters Encounter Location Date Provider Diagnosis [facility] [address] [place] [address] [place] [address] 01/15/2025 Angel Luisaracelis Ibarraoscar Solitary pulmonary nodule R91.1 ; Stage 3 severe COPD by GOLD classification J44.9 ; Chronic hypoxic respiratory failure J96.11 and Nicotine dependence, cigarettes, in remission F17.211 [facility] [address] [place] [address] 09/10/2024 Angel Luis Sebastian Solitary pulmonary nodule R91.1 ; Stage 3 severe COPD by GOLD classification J44.9 ; Chronic hypoxic respiratory failure J96.11 and Nicotine dependence, cigarettes, in remission F17.211 [facility] [address] [place] [address] 07/17/2025 [facility] [address] [place] [address] [place] [address] 01/08/2025 [facility] [address] [place] [address] 12/05/2024 [facility] [address] [place] [address] [place] [address] 11/22/2024 [facility] [address] [place] [address] 09/03/2024 [facility] [address] [place] [address] [place] [address] 08/28/2024 [facility] [address] [place] [address] 08/20/2024 [facility] [address] [place] [address] [place] [address] 08/15/2024 [facility] [address] [place] [address] [place] [address] 07/30/2024 [facility] [address] [place] [address] [place] [address] 07/27/2024 Angel Luis Sebastian Assessments Encounter Date Diagnosis (ICD Code) Assessment Notes Treatment Notes Treatment Clinical Notes Section Notes 01/15/2025 Solitary pulmonary nodule (ICD-10 - R91.1) -Stable size nodule. Repeat chest CT in 6 months. 09/10/2024 Solitary pulmonary nodule (ICD-10 - R91.1) Stable size nodule. Repeat chest CT in 3 months. 09/10/2024 Stage 3 severe COPD by GOLD classification (ICD-10 - J44.9) -Continue Albuterol Neb as needed. -Continue Breztri -Little benefit from Trelegy. History of Combivent. 09/10/2024 Chronic hypoxic respiratory failure (ICD-10 - J96.11) - continue oxygen use to maintain a saturation between 88-92% 01/15/2025 Stage 3 severe COPD by GOLD classification (ICD-10 - J44.9) -Continue Albuterol Neb as needed. -Continue Breztri -Little benefit from Trelegy. History of Combivent. -I will treat him as exacerbation with prednisone and doxycycline -Given frequent exacerbations I would find it reasonable to start him on Daliresp. I will send a prescription. 01/15/2025 Chronic hypoxic respiratory failure (ICD-10 - J96.11) -Continue oxygen use to maintain a saturation between 88-92% 09/10/2024 Nicotine dependence, cigarettes, in remission (ICD-10 - F17.211) Smoked 3 packs a day for 40 years before cutting down to half a pack a day in the last 5 years. He officially quit smoking two months ago. 01/15/2025 Nicotine dependence, cigarettes, in remission (ICD-10 [...] PET CT Skull Base to Mid Thigh ([facility]) 07/03/2024 Future Test Test Name Order Date CT Chest w/o Contrast diagnostic-[id number] 09/03/2024 Next Appt Details Provider Name:Angel Luis Sebastian, 10/16/2025 02:10:00 PM, [address] [place] [address] [place], [address], Insurance Providers Payer Name Payer Address Payer Phone Subscriber Number Group Number Insured Name Patient Relationship to Insured Coverage Start Date Coverage End Date [employer]UM [address] [place] [phone] [id number] [employer] Self - patient is the insured Medical (General) History Medical History History ICD Code Measles,Chicken Pox Pneumonioa Arthritis Venereal Disease Migraine Headaches HTN Asthma Stroke Surgical History Surgery Date(Month/Year) Fluid pocket cut off back Appendectomy Hospitalization History Reason Date(Month/Year) Multiple
--- NOTE | 2025-07-18 21:03 | W.ED.CHESTPA ---
HPI - Chest Pain General: Chief Complaint: Chest Pain Stated Complaint: cp History of Present Illness: Patient is a 69yo male with a history of COPD on home 2L and HTN who presents with acute onset chest pain that began around 3 AM while sitting and watching TV. The pain, described as pressure, escalated from a 3/10 to a peak of 9/10 before arrival. He received two doses of nitroglycerin, which reduced his pain to 2-3/10; he declined further nitro. He reports no vomiting, diaphoresis, fever (current temp 98.2?F), or worsening cough. He was recently hospitalized for similar symptoms, with prior episodes of hypotension after excessive nitroglycerin use and was seen by cardiology who did a nuclear stress test on him and found no evidence of ischemia and thought his chest pain was noncardiac related. He quit smoking two years ago and lives at home with his . He reports eating and drinking normally, with no vomiting or diarrhea. Associated symptoms: Reports dyspnea; Deny abdominal pain, fever(s) or palpitations Related Data Home Medications ?Medication ?Instructions ?Recorded ?Confirmed aspirin 81 mg tablet,delayed 81 mg PO DAILY 11/27/19 07/09/25 release amlodipine 5 mg tablet 5 mg PO DAILY 11/23/24 07/09/25 guaifenesin 400 mg tablet 400 mg PO TID 11/23/24 07/09/25 melatonin 5 mg tablet 10 mg PO DAILY 11/23/24 07/09/25 omeprazole 20 mg tablet,delayed 20 mg PO BID 11/23/24 07/09/25 release cholecalciferol (vitamin D3) 25 25 mcg PO DAILY 01/27/25 07/09/25 mcg (1,000 unit) capsule (Vitamin D3) docusate sodium 100 mg capsule 100 mg PO BID PRN Constipation 01/27/25 07/09/25 ipratropium 0.5 mg-albuterol 3 mg 3 ml inhalation QID PRN Shortness 01/27/25 07/09/25 (2.5 mg base)/3 mL nebulization Of Breath Or Wheezing soln albuterol sulfate 90 mcg/actuation 2 inh inhalation QID PRN shortness 07/09/25 07/09/25 aerosol inhaler of breath or wheezing food supplemt, lactose-reduced 1 ea PO QID 07/09/25 07/09/25 ipratropium 20 mcg-albuterol 100 1 puff inhalation QID 07/09/25 07/09/25 mcg/actuation mist for inhalation (Combivent Respimat) levocarnitine 500 mg capsule 500 mg PO QAM 07/09/25 07/09/25 omega 5-ycc-lmf-fish oil 1,000 mg 1 cap PO BID 07/09/25 07/09/25 (120 mg-180 mg) capsule (Fish Oil) polyethylene glycol 3350 17 17 g PO DAILY 07/09/25 07/09/25 gram/dose oral powder (Miralax) tamsulosin 0.4 mg capsule 0.4 mg PO QPM 07/09/25 07/09/25 trazodone 100 mg tablet 200 mg PO BEDTIME 07/09/25 07/09/25 Previous Rx's ?Medication ?Instructions ?Recorded isosorbide mononitrate 30 mg 30 mg PO DAILY #90 tabs 05/23/24 tablet,extended release 24 hr metoprolol succinate 25 mg 12.5 mg (1/2 x 25 mg) PO DAILY #45 11/16/24 tablet,extended release 24 hr tabs budesonide 160 mcg-glycopyr 9 2 inh inhalation BID #10.7 grams 11/25/24 mcg-formot 4.8 mcg/actuation HFA inhaler (Breztri Aerosphere) dextromethorphan-guaifenesin 10 10 ml PO Q4H #237 mL 01/29/25 mg-100 mg/5 mL oral syrup nitroglycerin 0.4 mg sublingual 0.4 mg sublingual Q5M PRN chest 04/18/25 tablet pain #25 tabs Allergies Allergy/AdvReac Type Severity Reaction Status Date / Time No Known Allergies Allergy Verified 08/02/24 22:45 Review of Systems General: Reports: 10 or more systems reviewed and unremarkable except in HPI and below Const: Denies: fever(s) or chills Eyes: Denies: change in vision or eye discharge Card: Reports: chest pain; Denies: palpitations or swelling of feet/ankles Resp: Reports: dyspnea and productive cough GI: Denies: abdominal pain or diarrhea : Denies: difficulty urinating Musc: Denies: neck pain or back pain Skin/Breast: Denies: rash or jaundice Neuro: Denies: headache(s), numbness in extremities or weakness in extremities Dio/Lymph: Denies: easy bruising or easy bleeding PFSH ED PFSH: Medical History (Updated 07/19/25 @ 05:36 by Tommy Whitney DO) Weight loss, unintentional Essential hypertension History of migraine headaches Vitamin D deficiency Hepatitis C Treatment status unknown Hx of colonic polyps Sessile on colonoscopy 02/16 Depression GERD (gastroesophageal reflux disease) Peptic ulcer disease Gastric ulcer on EGD 02/16 COPD (chronic obstructive pulmonary disease) Surgical History History of colonoscopy with polypectomy 2019 Status post excision of lipoma (~01/2019) Hx of appendectomy Family History Father Tuberculosis Denies family history of Diabetes Cancer Social History (Updated 07/09/25 @ 00:09 by Александр Proctor MD) Smoking and tobacco/nicotine status: former use of tobacco/nicotine Quit status (tobacco/nicotine): has quit using Year quit tobacco: 2023 Former quit date comment: Was hospitalized for COPD went home and just never smoked again Second hand smoke exposure: No Alcohol intake: current Alcohol intake frequency: holidays/special occasions only Substance/Drug Use: former Former substance use details: Used to use meth Additional social history: 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 Alcohol is none illicits none tobacco now also none after smoking 1 to 1-1/2 packs/day for 42 years lives with his and his nephew. 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 Saturating in mid 90s on home 2 L, coarse and decreased breath sounds but no wheezes or crackles, mild nasal congestion with referred upper airway breath sounds. Normal sinus rhythm with no murmurs, no leg swelling, 2+ pulses throughout, good cap refill. Abdomen soft, nontender nondistended. GCS 15, follows commands and answers questions appropriately, moving all 4 extremities symmetrically and spontaneously Course Vital Signs: Vital signs: Vital Signs Temperature 98.2 F 07/18/25 20:55 Pulse Rate 82 07/19/25 00:40 Respiratory Rate 18 07/19/25 00:40 Blood Pressure 108/63 07/19/25 00:40 Pulse Oximetry 98 07/19/25 00:40 Oxygen Delivery Me thod Nasal Cannula 07/19/25 00:00 Oxygen Flow Rate 2 07/19/25 00:00 MDM - Chest Pain Medical Decision Making -ddx: ACS, dysrhythmia, URI, pneumonia, sinusitis, pericarditis, pneumothorax - Patient with an episode of chest pain with minor exertion after he got up to go to the bathroom from the couch, resolve quickly with rest, resolved with nitro, troponins 19 and then 26, seemingly lower than his normal baseline, BMP very mildly elevated, no signs of overt fluid overload. Patient with improvement after DuoNeb, had complete relief of his chest pain and no recurrence of it. His EKG showed no dynamic changes or anything concerning for acute ischemia. Patient with moderate risk hear score but will always be in this intermediate zone due to his risk factors, recently had a stress test with cardiology on last admission that was reassuring with no areas of ischemia and doubt a cardiac etiology for his pain. With patient feeling better and a reassuring ED evaluation, he was deemed stable for discharge home and to follow-up closely with his PCP next week for reevaluation, discharged in stable condition with strict return precautions given. Lab Data 07/18/25 20:58 07/18/25 20:58 Radiology Impressions Chest X-Ray 07/18/25 21:04 IMPRESSION: No acute findings. Laboratory Results WBC 10.70 10^3/uL (3.29-11.43) 07/18/25 20:58 RBC 4.35 10^6/uL (3.85-5.65) 07/18/25 20:58 Hgb 11.40 g/dL (11.27-16.99) 07/18/25 20:58 Hct 38.7 % (37-53) 07/18/25 20:58 MCV 89.0 fl (82-101) 07/18/25 20:58 MCH 26.2 pg (27-33) L 07/18/25 20:58 MCHC 29.5 g/dL (30-55) L 07/18/25 20:58 RDW 13.0 % (12.1-15.1) 07/18/25 20:58 Plt Count 486 10^3/cmm (157-399) H 07/18/25 20:58 MPV 10.1 fL (7.4-10.4) 07/18/25 20:58 Neut % (Auto) 68.8 % 07/18/25 20:58 Lymph % (Auto) 12.7 % 07/18/25 20:58 [place] % (Auto) 12.2 % 07/18/25 20:58 Eos % (Auto) 4.6 % 07/18/25 20:58 Baso % (Auto) 0.7 % 07/18/25 20:58 Neut # (Auto) 7.36 10^3/uL (1.8-7.7) 07/18/25 20:58 Lymph # (Auto) 1.4 10^3/uL (0.8-4.8) 07/18/25 20:58 [place] # (Auto) 1.3 10^3/uL (0.2-0.9) H 07/18/25 20:58 Eos # (Auto) 0.5 10^3/uL (0.0-0.8) 07/18/25 20:58 Baso # (Auto) 0.1 10^3/uL (0.0-0.1) 07/18/25 20:58 Nucleated RBC % (auto) 0 % 07/18/25 20:58 Nucleated RBCs # 0.0 /100WBC 07/18/25 20:58 Specimen Type Venous 07/18/25 21:16 Italo Test Pos 07/18/25 21:16 VBG pH 7.34 (7.32-7.42) 07/18/25 21:16 VBG pCO2 62.1 mmHg (41-51) H* 07/18/25 21:16 VBG pO2 42.4 mmHg (25-40) H 07/18/25 21:16 VBG HCO3 33.4 mmol/L (24-28) H 07/18/25 21:16 VBG Base Excess 6.1 mmol/L (-3.0-3.0) H 07/18/25 21:16 VBG Hematocrit 33.1 % (42-52) L 07/18/25 21:16 O2 Delivery Device Nc 07/18/25 21:16 O2 Liters/Min 2.0 % 07/18/25 21:16 FiO2 28.0 % 07/18/25 21:16 Chief Hydroelectric Station Operator ID [email or web address] 07/18/25 21:16 Sodium 139 mmol/L (136-145) 07/18/25 20:58 Potassium 4.7 mmol/L (3.5-5.1) 07/18/25 20:58 Chloride 97 mmol/L (98-107) L 07/18/25 20:58 Carbon Dioxide 31 mmol/L (22-29) H 07/18/25 20:58 Anion Gap 15.7 (5-19) 07/18/25 20:58 BUN 9 mg/dL (8-23) 07/18/25 20:58 Creatinine 0.8 mg/dL (0.7-1.2) 07/18/25 20:58 GFR Calculation 96.1 mL/min (90-130) 07/18/25 20:58 Glucose 121 mg/dL (65-115) H 07/18/25 20:58 Calculated Osmolality 288 mOsm/kg (285-295) 07/18/25 20:58 Lactic Acid 1.7 mmol/L (0.5-2.2) 07/18/25 20:58 Calcium 9.5 mg/dL (8.5-10.5) 07/18/25 20:58 Magnesium 2.0 mg/dL (1.7-2.3) 07/18/25 20:58 Total Bilirubin 0.2 mg/dL (0.15-1.2) 07/18/25 20:58 AST 13 U/L (0-40) 07/18/25 20:58 ALT 11 U/L (0-41) 07/18/25 20:58 Alkaline Phosphatase 87 U/L (40-130) 07/18/25 20:58 Troponin T Baseline 19 ng/L (0-15) H 07/18/25 20:58 Troponin T 60 Minute 26.67 ng/L (0-15) H 07/18/25 22:02 Delta Troponin T 7.67 ABS# (0-10) 07/18/25 22:02 C-React Prot High Sens 11.320 mg/dL (0.0-0.3) H 07/18/25 20:58 NT-Pro-B Natriuret Pep 172 pg/mL (0-125) H 07/18/25 20:58 Total Protein 6.2 g/dL (6.6-8.7) L 07/18/25 20:58 Albumin 3.8 g/dL (3.5-5.2) 07/18/25 20:58 Globulin 2.4 g/dL (1.3-4.6) 07/18/25 20:58 Lipase 52 U/L (13-60) 07/18/25 20: Procalcitonin 0.11 ng/mL (0-0.5) 07/18/25 20:58 Urine Color Yellow (Yellow) 07/18/25 21: Urine Appearance Clear (CLEAR) 07/18/25 21: Urine pH 5.5 (5-7) 07/18/25 21: Ur Specific [place] 1.018 (1.005-1.030) 07/18/25 21: Urine Protein Negative (Negative) 07/18/25: Urine Glucose (UA) Negative (Normal) 07/18/25: Urine Ketones Negative (Negative) 07/18/25: Urine Blood Negative (Negative) 07/18/25: Urine Nitrate Negative (Negative) 07/18/25: Urine Bilirubin Negative (Negative) 07/18/25: Urine Urobilinogen 1.0 mg/dL (Negative) 07/18/25 21: Ur Leukocyte Esterase Negative (Negative) 07/18/25: Urine RBC 0-2 /hpf (0-2) 07/18/25 21: Urine WBC 0-5 /hpf (0-5) 07/18/25 21: Ur Squamous Epith Cells 0-5 /hpf (0-5) 07/18/25: Amorphous Sediment Not Reportable 07/18/25 21: Urine Bacteria None seen /hpf (NONE) 07/18/25: Hyaline Casts 2.05 /lpf 07/18/25 21:27 Influenza A (PCR) Negative (Negative) 07/18/25 21:05 Influenza Type B (PCR) Negative (Negative) 07/18/25 21:05 RSV (PCR) Negative (Negative) 07/18/25 21:05 SARS-CoV-2 (PCR) Negative (Negative) 07/18/25 21:05 All radiology interpretation(s) finalized by discharge Clincial Decision Support The following clinical decision support tools were used to aid in care of the patient HEART Score -> History: Moderately Suspicious, EKG: Normal, Age: 65 or more yrs, Risk Factors: >/=3 Risk Factors, Troponin: Baseline Trop 16-45 ng/L. Resulting HEART Score: 6. Discharge Plan Discharge Patient Disposition: Home Clinical Impression: Stable angina COPD (chronic obstructive pulmonary disease) Qualifiers: COPD type: emphysema Emphysema type: other Qualified Code(s): J43.8 - Other emphysema Condition: Stable Prescriptions: No Action isosorbide mononitrate 30 mg tablet extended release 24 hr 30 mg PO DAILY Qty: 90 3RF metoprolol succinate 25 mg tablet extended release 24 hr 12.5 mg PO DAILY Qty: 45 3RF nitroglycerin 0.4 mg tablet, sublingual 0.4 mg sublingual Q5M PRN (Reason: chest pain) Qty: 25 2RF Rx Instructions: do not exceed 3 doses per episode aspirin 81 mg Tablet,Delayed Release (Dr/Ec) 81 mg PO DAILY tamsulosin 0.4 mg Capsule 0.4 mg PO QPM trazodone 100 mg Tablet 200 mg PO BEDTIME polyethylene glycol 3350 [Miralax] 17 gram/dose Powder 17 g PO DAILY food supplemt, lactose-reduced Liquid 1 ea PO QID omega 5-lik-qqr-fish oil [Fish Oil] 1,000 (120-180) mg Capsule 1 cap PO BID Combivent Respimat 20-100 mcg/actuation Mist 1 puff INHALATION QID Rx Instructions: space evenly during waking hours levocarnitine 500 mg Capsule 500 mg PO QAM Rx Instructions: must administer with a meal/food albuterol sulfate 90 mcg/actuation HFA aerosol inhaler 2 inh inhalation QID PRN (Reason: shortness of breath or wheezing) melatonin 5 mg Tablet 10 mg PO DAILY amlodipine 5 mg tablet 5 mg PO DAILY guaifenesin 400 mg Tablet 400 mg PO TID omeprazole 20 mg Tablet,Delayed Release (Dr/Ec) 20 mg PO BID Breztri Aerosphere 160-9-4.8 mcg/actuation HFA aerosol inhaler 2 inh inhalation BID Qty: 10.7 1RF ipratropium-albuterol 0.5 mg-3 mg(2.5 mg base)/3 mL Solution For Nebulization 3 ml INHALATION QID MDD COPD PRN (Reason: Shortness Of Breath Or Wheezing) docusate sodium 100 mg Capsule 100 mg PO BID PRN (Reason: Constipation) cholecalciferol (vitamin D3) [Vitamin D3] 25 mcg (1,000 unit) Capsule 25 mcg PO DAILY dextromethorphan-guaifenesin 10-100 mg/5 mL Syrup 10 ml PO Q4H Qty: 237 1RF Discharge Orders: Discharge ED (Routine); Ordered 07/19/25 Ordered By: Tommy Whitney Referrals: Ellie Irene MD [Primary Care Provider, Family Practice] Discharge Diet: Usual diet Discharge Activity: Resume usual activity Patient Instructions: Opioid Safety, Pain Management, Patient Portal & Sarah Instructions Activity Restrictions/Additional Instructions: You were seen for your shortness of breath and chest pain, you were evaluated with a chest x-ray, EKG and laboratory studies that were ultimately reassuring. You improved with a breathing treatment and were deemed stable to be discharged home. In the future, know whenever these pains return home what you are doing, what makes it worse and what your blood pressure is. Further discuss the symptoms and your medications further with your primary care physician next week if possible. Return to the ED with severe worsening of your chest pain or shortness of breath, episodes of passing out, fevers, any other emergent concerns. Print Language: Lao Coding Level of Care Code ED Cdl Dedicated Truck Driver for Chg Fwd Heart Score HEART Score Components History: Moderately Suspicious EKG: Normal Age: 65 or more yrs Risk Factors: >/=3 Risk Factors Troponin: Baseline Trop 16-45 ng/L HEART Score RESULT HEART Score: 6
--- NOTE | 2025-07-18 21:04 | XRR_ITS ---
PROCEDURE INFORMATION: Exam: XR Chest Exam date and time: 07/18/2025 9:30 PM Age: 69 years old Clinical indication: Shortness of breath; Additional info: SOB TECHNIQUE: Imaging protocol: Radiologic exam of the chest. Views: 1 view. COMPARISON: CR (CHEST, ) 07/08/2025 9:19 PM FINDINGS: Lungs: Unremarkable. No consolidation. Pleural spaces: Unremarkable. No pleural effusion. No pneumothorax. Heart/Mediastinum: Unremarkable. No cardiomegaly. Bones/joints: Unremarkable. XR/XR chest 1V portable [id number] IMPRESSION: No acute findings.
--- NOTE | 2025-07-18 21:04 | ECG_ITS ---
[facility] Date: 2025-07-18 Pat Name: Naren Pritchard Department: Room: Gender: Male Jack Setter: : 1955 Requested By: Tommy Whitney Order Number: [id number] Reading MD: Measurements Intervals Nichols Rate: 84 P: 80 MA: 163 QRS: 78 QRSD: 88 T: 70 QT: 331 QTc: 393 Interpretive Statements SINUS RHYTHM No previous ECG available for comparison [email or web address]
[2025-07-18 21:14] LABS: Hematocrit 38.7 % (37-53); Hemoglobin 11.40 g/dL (11.27-16.99); Mean Corpuscular HGB Conc 29.5 g/dL (30-55); Mean Corpuscular Hemoglobin 26.2 pg (27-33); Mean Corpuscular Volume 89.0 fl (82-101); Nucleated Red Blood Cells % 0 %; Platelet Count 486 10^3/cmm (157-399); Red Blood Count 4.35 10^6/uL (3.85-5.65); White Blood Count 10.70 10^3/uL (3.29-11.43)
[2025-07-18 21:25] LABS: Lactic Sepsis W/Reflex 1.7 mmol/L (0.5-2.2)
[2025-07-18 21:27] LABS: Troponin(5th) Baseline 19 ng/L (0-15)
[2025-07-18 21:30] LABS: Base Excess VBG 6.1 mmol/L (-3.0-3.0); Blood Gas Allen Test Pos; Blood Gas Sample Type Venous; HCO3 VBG 33.4 mmol/L (24-28); PO2 VBG 42.4 mmHg (25-40); Venous Blood Gas Hematocrit 33.1 % (42-52); pH VBG 7.34 (7.32-7.42)
[2025-07-18 21:31] LABS: Blood Gas LPM 2.0 %; Blood Gas Operator Identificat gerca
[2025-07-18 21:32] LABS: PCO2 VBG 62.1 mmHg (41-51)
[2025-07-18 21:36] LABS: NT Pro B Type Natriuretic Pept 172 pg/mL (0-125); Procalcitonin 0.11 ng/mL (0-0.5)
[2025-07-18 21:40] LABS: Glucose Urine UA Negative (Normal); Nitrate Urine Negative (Negative); Specific Gravity, Urine 1.018 (1.005-1.030)
[2025-07-18 21:45] LABS: Add Urine Microscopic? YES
[2025-07-18 21:47] LABS: Alanine Aminotransferase 11 U/L (0-41); Albumin Level 3.8 g/dL (3.5-5.2); Alkaline Phosphatase 87 U/L (40-130); Anion Gap 15.7 (5-19); Aspartate Amino Transferase 13 U/L (0-40); Blood Urea Nitrogen 9 mg/dL (8-23); Calcium 9.5 mg/dL (8.5-10.5); Carbon Dioxide 31 mmol/L (22-29); Chloride 97 mmol/L (98-107); Globulin 2.4 g/dL (1.3-4.6); Glucose 121 mg/dL (65-115); Lipase 52 U/L (13-60); Magnesium 2.0 mg/dL (1.7-2.3); Osmolality Calculated 288 mOsm/kg (285-295); Potassium 4.7 mmol/L (3.5-5.1); Sodium 139 mmol/L (136-145); Total Protein 6.2 g/dL (6.6-8.7)
--- NOTE | 2025-07-18 22:04 | ECG_ITS ---
[facility] Date: 2025-07-18 Pat Name: Naren Pritchard Department: Room: Gender: Male Manager Orange: : 1955 Requested By: Tommy Whitney Order Number: [id number] Reading MD: Measurements Intervals [place] Rate: 80 P: 28 CA: 159 QRS: 73 QRSD: 82 T: 63 QT: 348 QTc: 403 Interpretive Statements SINUS RHYTHM [email or web address]
[2025-07-18 22:10] LABS: Respiratory Syncytial Virus Ce NEGATIVE (Negative); SARS-CoV-2 PCR NEGATIVE (Negative)
[2025-07-19] VITALS: BP 109/59; PULSE 78; RESP 20; O2SAT 97
[2025-07-19 00:15] VITALS: BP 112/62; PULSE 77; RESP 19; O2SAT 98
[2025-07-19 00:40] VITALS: BP 108/63; PULSE 82; RESP 18; O2SAT 98
== END 2025-07-19 01:10 | disposition home or self-care (01) ==
PROVIDERS: Emergency Provider Student in an Organized Health Care Education/Training Program; PCP Family Medicine
DX: J43.8 Other emphysema (principal); Z11.52 Encounter for screening for COVID-19; I20.89 Other forms of angina pectoris; Z79.82 Long term (current) use of aspirin; Z87.891 Personal history of nicotine dependence; J44.9 Chronic obstructive pulmonary disease, unspecified; I10 Essential (primary) hypertension; Z99.81 Dependence on supplemental oxygen
CPT/HCPCS: 36415; 71045; 80053; 81001; 82803; 83605; 83690; 83735; 83880; 84145; 84484; 85025; 86141; 87637; 93005; 94640; 99285; J9999

== ENCOUNTER 2025-07-19 05:02 | Emergency (ER) | payer OTHER, SELFPAY ==
--- OUTSIDE RECORDS SUMMARY | 2024-07-30 07:50 | XMS_ITS ---
Author Organization [facility] Address [address] [place] [address] Care Team Providers Care Crib Attendant Name Role Phone Judith Lieberman APRN Primary Care Provider Unav ailAngel Luis Alcocer Unavailable [phone] [place], [place] Unavailable Unavailable REASON FOR VISIT [phone] Encounters Encounter Location Date Provider Diagnosis [facility] [address] [place] [address] [place] [address] 07/30/2024 Angel Luis Sebastian Plan Of Treatment Next Appt Details Provider Name:Anegl Luis Sebastian, 10/16/2025 02:10:00 PM, [address] [place] [address] [place], [address], Progress Notes * CHI KEYS ADOB:1955 (69 yo M)Acc No.[id number]:07/30/2024 Progress Notes Patient: HCI MCGINNIS Provider: Jalil Sebastian MD :1955 A ge:68 Y S ex:Male Date:07/30/2024 Address:[address] [place] [phone] Pcp:Judith Lieberman APRN Subjective: * Chief Complaints: * [phone] [id number] Care Plan Details* * Electronic signature of Evelyn Sebastian MD on 07/19/2025 at 05:06 AM AIR CONDITIONING INSULATION INSTALLER Sign off status: Pending * Provider: Jalil Sebastian MD Date: 1 Generated for Gabrielle mcclendon/Jourdan/Katsmitting on: 1 09/19/2024 05:06 AM AIR CONDITIONING INSULATION INSTALLER
--- OUTSIDE RECORDS SUMMARY | 2024-08-06 06:50 | XMS_ITS ---
Author Organization [facility] Address [address] [place] [address] Care Team Providers Care Educational Resource Center Teacher Name Role Phone Judith Lieberman APRN Primary Care Provider Unav ailAngel Luis Alcocer Unavailable [phone] [place], [place] Unavailable Unavailable REASON FOR VISIT [phone] Encounters Encounter Location Date Provider Diagnosis [facility] [address] [place] [address] [place] [address] 08/06/2024 Angel Luis Sebastian Plan Of Treatment Next Appt Details Provider Name:Angel Luis Sebastian, 10/16/2025 02:10:00 PM, [address] [place] [address] [place], [address], Progress Notes * CHI KEYS ADOB:1955 (69 yo M)Acc No.[id number]:08/06/2024 Progress Notes Patient: CHI MCGINNIS Provider: Jalil Sebastian MD :1955 A ge:68 Y S ex:Male Date:08/06/2024 Address:[address] [place] [phone] Pcp:Judith Lieberman APRN Subjective: * Chief Complaints: * 6 [id number] Care Plan Details* * Electronic signature of Evelyn Sebastian MD on 07/19/2025 at 05:05 AM WEIGH TANK OPERATOR Sign off status: Pending * Provider: Jalil Sebastian MD Date: 0 08/06/2024 Generated for Gabrielle mcclendon/Jourdan/Katsmitting on: 1 09/19/2024 05:05 AM WEIGH TANK OPERATOR
--- OUTSIDE RECORDS SUMMARY | 2024-08-16 05:30 | XMS_ITS ---
Author Organization [facility] Address [address] [place] [address] Care Team Providers Care C Programmer Name Role Phone Judith Lieberman APRN Primary Care Provider Unav ailAngel Luis Alcocer Unavailable [phone] [place], [place] Unavailable Unavailable REASON FOR VISIT [phone] Encounters Encounter Location Date Provider Diagnosis [facility] [address] [place] [address] [place] [address] 08/16/2024 Angel Luis Sebastian Plan Of Treatment Next Appt Details Provider Name:Angel Luis Sebastian, 10/16/2025 02:10:00 PM, [address] [place] [address] [place], [address], Progress Notes * CHI KEYS ADOB:1955 (69 yo M)Acc No.[id number]:08/16/2024 Progress Notes Patient: CHI MCGINNIS Provider: Jalil Sebastian MD :1955 A ge:68 Y S ex:Male Date:08/16/2024 Address:[address] [place] [phone] Pcp:Judith Lieberman APRN Subjective: * Chief Complaints: * 6 [id number] Care Plan Details* * Electronic signature of Evelyn Sebastian MD on 07/19/2025 at 05:06 AM LEASING CONSULTANT Sign off status: Pending * Provider: Jalil Sebastian MD Date: 0 08/16/2024 Generated for Gabrielle mcclendon/Jourdan/Katsmitting on: 1 09/19/2024 05:06 AM LEASING CONSULTANT
--- OUTSIDE RECORDS SUMMARY | 2024-08-22 05:30 | XMS_ITS ---
Author Organization [facility] Address [address] [place] [address] Care Team Providers Care Aircraft Cylinder Mechanic Name Role Phone Judith Lieberman APRN Primary Care Provider Unav ailAngel Luis Alcocer Unavailable [phone] [place], [place] Unavailable Unavailable REASON FOR VISIT [phone] Encounters Encounter Location Date Provider Diagnosis [facility] [address] [place] [address] [place] [address] 08/22/2024 Angel Luis Sebastian Plan Of Treatment Next Appt Details Provider Name:Angel Luis Sebastian, 10/16/2025 02:10:00 PM, [address] [place] [address] [place], [address], Progress Notes * CHI KEYS ADOB:1955 (69 yo M)Acc No.[id number]:08/22/2024 Progress Notes Patient: CHI MCGINNIS Provider: Jalil Sebastian MD :1955 A ge:68 Y S ex:Male Date:08/22/2024 Address:[address] [place] [phone] Pcp:Judith Lieberman APRN Subjective: * Chief Complaints: * [phone] [id number] Care Plan Details* * Electronic signature of Evelyn Sebastian MD on 07/19/2025 at 05:06 AM MANUFACTURER REPRESENTATIVE Sign off status: Pending * Provider: Jalil Sebastian MD Date: 0 08/22/2024 Generated for Gabrielle mcclendon/Jourdan/Katsmitting on: 1 09/19/2024 05:06 AM MANUFACTURER REPRESENTATIVE
--- OUTSIDE RECORDS SUMMARY | 2024-12-10 07:30 | XMS_ITS ---
Author Organization [facility] Address [address] [place] [address] Care Team Providers Care Consulting Systems Engineer Name Role Phone Judith Lieberman APRN Primary Care Provider Unav ailable Angel Luis Sebastian Unavailable [phone] [place], [place] Unavailable Unavailable Encounters Encounter Location Date Provider Diagnosis [facility] [address] [place] [address] [place] [address] 12/10/2024 Angel Luis Sebastian Plan Of Treatment Next Appt Details Provider Name:Angel Luis Ibarraoscar, 10/16/2025 02:10:00 PM, [address] [place] [address] [address] FLOWERS [address] [place] [address], [place], [phone], Progress Notes * CHI KEYS ADOB:1955 (69 yo M)Acc No.[id number]:12/10/2024 Progress Notes Patient: CHI MCGINNIS Provider: Jalil Sebastian MD :1955 A ge:69 Y S ex:Male Date:12/10/2024 Address:[address] [place], [place] [phone] Pcp:Judith Lieberman APRN Care Plan Details* * Electronic signature of Evelyn Sebastian MD on 07/19/2025 at 05:05 AM CARD DECORATOR Sign off status: Pending * Provider: Jalil Sebastian MD Date: 0 12/10/2024 Generated for Kaleyi ng/Cherelleg/eTransmitting on: 1 09/19/2024 05:05 AM CARD DECORATOR
--- OUTSIDE RECORDS SUMMARY | 2024-12-17 08:30 | XMS_ITS ---
Author Organization [facility] Address [address] [address] Care Team Providers Care Lithographic Proofer Apprentice Name Role Phone Judith Lieberman APRN Primary Care Provider Angel Luis Shields Unavailable [phone] [place], [place] Unavailable Unavailable REASON FOR VISIT Shortness of breath Encounters Encounter Location Date Provider Diagnosis [facility] [address] [place] [address] [place] [address] 12/17/2024 Angel Luis Jaz Solitary pulmonary nodule [...] Appt Details Provider Name:Angel Luis Fung Staceyoscar, 10/16/2025 02:10:00 PM, [address] [place] [address] DR MOTA, [place], [address], History and Physical Notes * HPI (History [...] * CHI KEYS ADOB:1955 (69 yo M)Acc No.[id number]:12/17/2024 Progress Notes Patient: Shwetha GERSONCHI Provider: Jalil Sebastian MD :1955 A ge:69 Y S ex:Male Date:12/17/2024 Address:[address] [place], [place] [phone] Pcp:Judith Lieberman APRN Subjective: * Chief Complaints: [...] Sebastian MD on 07/19/2025 at 05:05 AM DRIVER SERVICE TECHNICIAN Sign off status: Pending * Provider: Jalil Sebastian MD Date: 0 12/17/2024 Generated for Gabrielle mcclendon/Jourdan/eTransmitting on: 09/19/2024 05:05 AM DRIVER SERVICE TECHNICIAN
--- OUTSIDE RECORDS SUMMARY | 2025-07-17 05:40 | XMS_ITS ---
Author Organization [facility] Address [address] [place] [address] Care Team Providers Care Applications Tester Name Role Phone Judith Lieberman APRN Primary Care Provider Ryland IbarraoscarAngel Luis Unavailable [phone] [place], [place] Unavailable Unavailable REASON FOR VISIT Shortness of breath Medications Medication SIG (Take, Route, Frequency, Duration) Notes Start Date End Date Status DuoNeb Not-Taking Roflumilast 500 MCG Tablet 1 tablet Orally Once a day; Duration: 30 days 01/15/2025 01/10/2026 Active Topiramate 50 MG Tablet 2 Tablets Orally Once a day Not-Taking Nicotine Polacrilex 4 MG Lozenge 1 lozenge as needed Mouth/Throat every 8 hrs Not-Taking Magnesium Citrate No t-Taking Cyanocobalamin 1000 MCG Tablet 1 tablet Orally Once a day Not-Taking Azithromycin 250 MG Tablet as directed Orally Once a day Not-Taking traZODone HCl 150 MG Tablet 1 tablet at bedtime Orally Once a day Active Omeprazole 40 MG Capsule Delayed Release 1 capsule 1/2 to 1 hour before morning meal Orally Once a day Active predniSONE 10 MG Tablet 1 tablet Orally BID Active guaiFENesin DM Activ e Fluticasone Propionate 50 MCG/ACT Suspension 1 spray in each nostril Nasally Twice a day Active Docusate Calcium 240 MG Capsule 1 capsule as needed Orally Once a day Active Dextrose 24 gm/31 gm squeeze tube Active Memantine HCl 5 MG Tablet 1 tablet Orally Once a day Active Cholecalciferol 25 MCG (1000 UT) Capsule 1 capsule Orally Once a day Active Breztri Aerosphere 160-9-4.8 MCG/ACT Aerosol 2 puffs Inhalation Twice a day Active Aspirin 81 81 MG Tablet Delayed Release 1 tablet Orally Once a day Active amLODIPine Besylate 5 MG Tablet 1 tablet Orally Once a day Active Albuterol Sulfate HFA 108 (90 Base) MCG/ACT Aerosol Solution 1 puff as needed Inhalation every 4 hrs Active Encounters Encounter Location Date Provider Diagnosis [facility] [address] [place] [address] [place] [address] 07/17/2025 Angel Luis Sebastian Solitary pulmonary nodule R91.1 ; Stage 3 severe COPD by GOLD classification J44.9 ; Chronic hypoxic respiratory failure J96.11 and Nicotine dependence, cigarettes, in remission F17.211 Assessments Encounter Date Diagnosis (ICD Code) Assessment Notes Treatment Notes Treatment Clinical Notes Section Notes 07/17/2025 Solitary pulmonary nodule (ICD-10 - R91.1) -Stable size nodule. Repeat chest CT in 6 months. 07/17/2025 Stage 3 severe COPD by GOLD classification (ICD-10 - J44.9) -Continue Albuterol Neb as needed. -Continue Breztri -Little benefit from Trelegy. History of Combivent. -I will treat him as exacerbation with prednisone and doxycycline -Given frequent exacerbations I would find it reasonable to start him on Daliresp. I will send a prescription. 07/17/2025 Chronic hypoxic respiratory failure (ICD-10 - J96.11) -Continue oxygen use to maintain a saturation between 88-92% 07/17/2025 Nicotine dependence, cigarettes, in remission (ICD-10 - F17.211) -Smoked 3 packs a day for 40 years before cutting down to half a pack a day in the last 5 years. He officially quit smoking in the beginning of 2024. 07/17/2025 Other I, Alexia Hobbs, am scribing for, and in the presence of Dr. Angel Luis Sebastian. I, Dr. Angel Luis Sebastian, personally performed the services described in this documentation , as scribed by Alexia Hobbs in my presence, and it is both accurate and complete. Plan Of Treatment Treatment Notes Assessment Notes Solitary pulmonary nodule -Stable size n odule. Repeat chest CT in 6 months. Stage 3 severe COPD by GOLD classificati on -Continue Albuterol Neb as needed. -Continue Breztri -Little benefit from Trelegy. History of Combivent. -I will treat him as exacerbation with prednisone and doxycycline -Given frequent exacerbations I would find it reasonable to start him on Daliresp. I will send a prescription. Chronic hypoxic respiratory failure -Con tinue oxygen use to maintain a saturation between 88-92% Nicotine dependence, cigaret mike, in remission -Smoked 3 packs a day for 40 years befor e cutting down to half a pack a day in the last 5 years. He officially quit smoking in the beginning of 2024. Next Appt Details Provider Name:Angel Luis Fung Jaz, 10/16/2025 02:10:00 PM, [address] [place] [address] [address], [place], [address], History and Physical Notes * HPI (History of Present Illness) Category Sub-Category Detail Notes Category Not es Provider Note The patient is a 69-year-old male with abnormal chest CT here for a follow-up visit. I have reviewed the chest CT images obtained today showing no concerning pulmonary nodule or mass. He however has been complaining of increased breathlessness and cough that is productive recently. -Last seen January 15, 2025; 6 mth w/ CT -CT today Examination Category Sub-Category Detail Notes Category Not [...] * CHI KEYS ADOB:1955 (69 yo M)Acc No.[id number]:07/17/2025 Progress Notes Patient: CHI MCGINNIS Provider: Jalil Sebastian MD :1955 A ge:69 Y S ex:Male Date:07/17/2025 Address:[address] [place], [place] [phone] Pcp:Judith Lieberman APRN Subjective: * Chief Complaints: * S hortness of breath * HPI: P jessica Note: The patient is a 69-year-old male with abnormal chest CT here for a follow-up visit. I have reviewed the chest CT images obtained today showing no concerning pulmonary nodule or mass. He however has been complaining of increased breathlessness and cough that is productive recently. -Last seen January 15, 2025; 6 mth w/ CT -CT today. * ROS: G eneral - Multi System: Constitutional f atigue. R espiratory s hortness of breath. * Medications: T akingAlbuterol Sulfate HFA 108 (90 Base) MCG/ACT Aerosol Solution 1 puff as needed Inhalation every 4 hrs amLODIPine Besylate 5 MG Tablet 1 tablet Orally Once a day Aspirin 81 81 MG Tablet Delayed Release 1 tablet Orally Once a day Breztri Aerosphere 160-9-4.8 MCG/ACT Aerosol 2 puffs Inhalation Twice a day Cholecalciferol 25 MCG (1000 UT) Capsule 1 capsule Orally Once a day Dextrose , Notes to Pharmacist: 24 gm/31 gm squeeze tubeDocusate Calcium 240 MG Capsule 1 capsule as needed Orally Once a day Fluticasone Propionate 50 MCG/ACT Suspension 1 spray in each nostril Nasally Twice a day guaiFENesin DM Memantine HCl 5 MG Tablet 1 tablet Orally Once a day Omeprazole 40 MG Capsule Delayed Release 1 capsule 1/2 to 1 hour before morning meal Orally Once a day predniSONE 10 MG Tablet 1 tablet Orally BID traZODone HCl 150 MG Tablet 1 tablet at bedtime Orally Once a day Roflumilast 500 MCG Tablet 1 tablet Orally Once a day , stop date 01/10/2026Taking Albuterol Sulfate HFA 108 (90 Base) MCG/ACT Aerosol Solution 1 puff as needed Inhalation every 4 hrs Taking amLODIPine Besylate 5 MG Tablet 1 tablet Orally Once a day Taking Aspirin 81 81 MG Tablet Delayed Release 1 tablet Orally Once a day Taking Breztri Aerosphere 160-9-4.8 MCG/ACT Aerosol 2 puffs Inhalation Twice a day Taking Cholecalciferol 25 MCG (1000 UT) Capsule 1 capsule Orally Once a day Taking Dextrose , Notes to Pharmacist: 24 gm/31 gm squeeze tubeTaking Docusate Calcium 240 MG Capsule 1 capsule as needed Orally Once a day Taking Fluticasone Propionate 50 MCG/ACT Suspension 1 spray in each nostril Nasally Twice a day Taking guaiFENesin DM Taking Memantine HCl 5 MG Tablet 1 tablet Orally Once a day Taking Omeprazole 40 MG Capsule Delayed Release 1 capsule 1/2 to 1 hour before morning meal Orally Once a day Taking predniSONE 10 MG Tablet 1 tablet Orally BID Taking traZODone HCl 150 MG Tablet 1 tablet at bedtime Orally Once a day Taking Roflumilast 500 MCG Tablet 1 tablet Orally Once a day , stop date 01/10/2026Not-TakingAzithromycin 250 MG Tablet as directed Orally Once a day Cyanocobalamin 1000 MCG Tablet 1 tablet Orally Once a day DuoNeb Magnesium Citrate Nicotine Polacrilex 4 MG Lozenge 1 lozenge as needed Mouth/Throat every 8 hrs Topiramate 50 MG Tablet 2 Tablets Orally Once a day Not-Taking Azithromycin 250 MG Tablet as directed Orally Once a day Not-Taking Cyanocobalamin 1000 MCG Tablet 1 tablet Orally Once a day Not-Taking DuoNeb Not-Taking Magnesium Citrate Not- Taking Nicotine Polacrilex 4 MG Lozenge 1 lozenge as needed Mouth/Throat every 8 hrs Not-Taking Topiramate 50 MG Tablet 2 Tablets Orally Once a day Objective: * Examination: G eneral Examination: GENERAL [...] on Daliresp. I will send a prescription. 3. C hronic hypoxic respiratory failure Notes: -Continue oxygen use to maintain a saturation between 88-92% 4. N icotine dependence, cigarettes, in remission Notes: -Smoked 3 packs a day for 40 years before cutting down to half a pack a day in the last 5 years. He officially quit smoking in the beginning of 2024. 5. O thers Clinical Notes:I, Alexia Hobbs, am scribing for, and in the presence of Dr. Angel Luis Sebastian. I, Dr. Angel Luis Sebastian, personally performed the services described in this documentation, as scribed by Alexia Hobbs in my presence, and it is both accurate and complete. * Immunizations: Immunization record has been reviewed and updated. Care Plan Details* * Electronic signature of Evelyn Sebastian MD on 07/19/2025 at 05:06 AM HEART COORDINATOR Sign off status: Pending * Provider: Jalil Sebastian MD Date: 09/17/2024 Generated for Gabrielle mcclendon/Jourdan/Deonna on: 09/19/2024 05:06 AM HEART COORDINATOR
--- OUTSIDE RECORDS SUMMARY | 2025-07-19 05:06 | XMS_ITS | Patient Health Record ---
Author Organization [facility] Address [address] [place] [address] Care Team Providers Care Manager Qa Name Role Phone Judith Lieberman APRN Primary Care Provider Unav ailable Angel Luis Sebastian Unavailable [phone] [facility] [place] Unavailable Unavailable Allergies No Known Allergies Results Component Value Reference Range Notes zzzPET Skull Base to [facility]--[id number] Reviewed date:08/14/2024 01:05:01 PM Interpretation: Performing Lab: Notes/Report: [id number]=iSite Schedule Confirmation Reviewed date:07/04/2025 03:47:36 PM Interpretation: Performing Lab: Notes/Report: CT Chest w/o Contrast Schedule Confirmation Reviewed date:01/14/2025 03:29:20 PM Interpretation: Performing Lab: Notes/Report: CT Chest w/o Contrast CT Chest w/o Contrast diagno stic-[id number] Reviewed date:01/16/2025 03:09:53 PM Interpretation: Performing Lab: Notes/Report: See Below For Report CT Chest w/o Contrast Diagnosis Description: Solitary pulmonary nodule Read See Below For Report zzzPET Skull Base to [facility]--[id number] Reviewed date:08/14/2024 03:11:27 PM Interpretation: Performing Lab: Notes/Report: See Below For Report PET study was performed at [facility]. Read See Below For Report Schedule Confirmation Reviewed date:01/15/2025 11:59:07 AM Interpretation: Performing Lab: Notes/Report: CT Chest w/o Contrast CT Chest w/o Contrast diagno stic-[id number] Reviewed date:01/15/2025 11:59:07 AM Interpretation: Performing Lab: Notes/Report: [id number] Reason For Referral Reason Solitary Pulm Nodule : [facility] - Scheduled Diagnosis 1 Solitary pulmonary n odule (R91.1) Referring Provider First Name Tawanda early Referring Provider Last Name OK Referring Provider [facility] Referred Organization [facility] Referred Provider Angel Luis Sebastian Referred Address [address] [place] [address] [address],[place], [place],[address], Referred Provider Specialty Pulmonary Di seases Referral [...] Name Tawanda early Referring Provider Last Name OK Referring Provider [facility] Referred Organization [facility] Referred Provider Angel Luis Sebastian Referred Address [address] [place] [address] [address],[place], [place],[address], Referred Provider Specialty Pulmonary Ramya corleyes Referral Priority Routine Medications Medication SIG (Take, [...] W/U Status Risk Notes Problem Tobacco user (225363373) Nicotine dependence, cigarettes, uncomplicated (F17.210) Active confirmed Problem Tobacco user (186766114) Nicotine dependence, cigarettes, in remission (F17.211) Active confirmed Problem Solitary pulmonary nodule (166020762) Solitary pulmonary nodule (R91.1) Active confirmed Problem Radiology result abnormal (620732455) Abnormal chest CT (R93.89) Active confirmed Problem Chronic obstructive pulmonary disease (79773829) Stage 3 severe COPD by GOLD classification (J44.9) Active confirmed Problem Chronic respiratory failure (75704629) Chronic hypoxic respiratory failure (J96.11) Active confirmed [...] 01/15/2025 Encounters Encounter Location Date Provider Diagnosis [facility] [address] [place] [address] [place] [address] 01/15/2025 Angel Luisaracelis Ibarraoscar Solitary pulmonary nodule R91.1 ; Stage 3 severe COPD by GOLD classification J44.9 ; Chronic hypoxic respiratory failure J96.11 and Nicotine dependence, cigarettes, in remission F17.211 [facility] [address] [place] [address] 09/10/2024 Angel Luis Sebastian Solitary pulmonary nodule R91.1 ; Stage 3 severe COPD by GOLD classification J44.9 ; Chronic hypoxic respiratory failure J96.11 and Nicotine dependence, cigarettes, in remission F17.211 [facility] [address] [place] [address] 07/17/2025 [facility] [address] [place] [address] [place] [address] 01/08/2025 [facility] [address] [place] [address] 12/05/2024 [facility] [address] [place] [address] [place] [address] 11/22/2024 [facility] [address] [place] [address] 09/03/2024 [facility] [address] [place] [address] [place] [address] 08/28/2024 [facility] [address] [place] [address] 08/20/2024 [facility] [address] [place] [address] [place] [address] 08/15/2024 [facility] [address] [place] [address] [place] [address] 07/30/2024 [facility] [address] [place] [address] [place] [address] 07/27/2024 Angel Luis Sebastian Assessments Encounter Date [...] PET CT Skull Base to Mid Thigh ([facility]) 07/03/2024 Future Test Test Name Order Date CT Chest w/o Contrast diagnostic-[id number] 09/03/2024 Next Appt Details Provider Name:Angel Luis Sebastian, 10/16/2025 02:10:00 PM, [address] [place] [address] [place], [address], Insurance Providers Payer Name Payer Address Payer Phone Subscriber Number Group Number Insured Name Patient Relationship to Insured Coverage Start Date Coverage End Date [employer] [address] [place] [address] [id number] CHI PRITCHARD Self - patient is the insured Medical (General) History Medical History History ICD Code Measles,Chicken Pox Pneumonioa Arthritis Venereal Disease Migraine Headaches HTN Asthma Stroke Surgical History Surgery Date(Month/Year) Fluid pocket cut off back Appendectomy Hospitalization History Reason Date(Month/Year) Multiple
--- OUTSIDE RECORDS SUMMARY | 2025-07-19 05:06 | XMS_ITS | Clinical Summary ---
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 Active fluticasone propionate (FLONASE) 50 mcg/spray Homeland, Suspension nasal inhaler Administer 1 Homeland in each nostril 2 times daily. Active [...] Department Care Team Description 06/02/2025 11:08 PM INTERVENTION NURSE - 06/03/2025 10:07 AM [facility] Emergency [facility] Emergency Medicine [address] [place] [address] Antonio Root MD Acute bronchitis, unspecified organism [...] PNEUM OCOCCAL CONJUGATE VACCINE 20-VALENT (PCV20), POLYSACCHARIDE [id number] CONJUGATE, ADJUVANT 0.5 ML (PF) IM 01/26/2024 [...] worry about transportation for future doctor visits, picking tech medication, etc.? No 2024 Housing Stability Answer [...] on file Legal Sex Male 12:54 PM INTERVENTION NURSE Gender Identity Not on file Sexual Orientation Not on file Last Filed Vital Signs Vital Sign Reading Time Taken Comments Blood Pressure 134/68 06/03/2025 10:00 AM INTERVENTION NURSE Pulse 94 06/03/2025 10:00 AM INTERVENTION NURSE Temperature 36.6 C (97.9 F) 06/02/2025 11:12 PM INTERVENTION NURSE Respiratory Rate 20 06/03/2025 10:0 0 AM INTERVENTION NURSE Oxygen Saturation 99% 06/03/2025 10: 00 AM INTERVENTION NURSE Inhaled Oxygen Concentration - - Weight 53.4 kg (117 lb 12.8 oz) 025 11:12 PM INTERVENTION NURSE Height 162.6 cm (5' 4 ) 06/02/2025 11:1 2 PM INTERVENTION NURSE Body Mass Index 20.22 06/02/2025 11:12 PM INTERVENTION NURSE Plan of Treatment Health Maintenance Due Date [...] 5TH GEN Timed Study 06/03/2025 1:25 AM INTERVENTION NURSE XR CHEST PA OR AP 1 VW Stat 06/02/2025 11:48 PM INTERVENTION NURSE COVID-19 ANTIGEN Stat 06/02/2025 11:3 0 PM INTERVENTION NURSE INFLUENZA VIRUS A AND B, ANTIGEN DETECTION Stat 06/02/2025 11:30 PM INTERVENTION NURSE TROPONIN BASELINE, 5TH GEN Stat 06/02/2025 11:28 PM INTERVENTION NURSE LACTIC ACID Stat 06/02/2025 11:28 PM INTERVENTION NURSE BRAIN NATRIURETIC PEPTIDE, BNP OR PROBNP Stat 06/02/2025 11:28 PM INTERVENTION NURSE COMPREHENSIVE METABOLIC PANEL Stat 06/02/2025 11:28 PM INTERVENTION NURSE CBC WITH DIFFERENTIAL Stat 06/02/2025 11:28 PM INTERVENTION NURSE from Last 3 Months Results * (ABNORMAL) TROPONIN 2 HR, 5TH GEN (06/03/2025 1:25 AM INTERVENTION NURSE) TROPONIN T, 2 HR 5TH GEN 33(H) <=15 ng/L 06/03/2025 1:52 AM INTERVENTION NURSE [facility] DELTA 2HR TROPONIN T -2 See Interp. 06/03/2025 1:52 AM INTERVENTION NURSE [facility] Blood BLOOD SPECIMEN / Unknown Collection / Unknown 06/03/2025 1:25 AM INTERVENTION NURSE 06/03/2025 1:30 AM INTERVENTION NURSE Narrative [facility] - 06/03/2025 1:52 AM INTERVENTION NURSE Troponin elevated. Delta not changing. us Antonio Root MD CHEMISTRY ORDERABLES Fin al Result [facility] CLIA # [id number] [address] [place] [address] * XR CHEST PA OR AP 1 VW (06/02/2025 11:48 PM INTERVENTION NURSE) Anatomical Region Laterality Modality Chest Computed Radiogr aphy 06/02/2025 11:4 8 PM INTERVENTION NURSE Impressions 06/03/2025 12:55 AM INTERVENTION NURSE IMPRESSION: No focal consolidation. Radiographic evidence of COPD. Narrative 06/03/2025 12:55 AM INTERVENTION NURSE EXAM: XR CHEST PA OR AP 1 [...] Result * COVID-19 ANTIGEN (06/02/2025 11:30 PM INTERVENTION NURSE) COVID-19 ANTIGEN Presumptive Negative Presumptive Negative 06/02/2025 11:56 PM INTERVENTION NURSE [facility] Upper Respiratory ANTERIOR NARES SWAB / Unknown Collection / Unknown 06/02/2025 11:30 PM INTERVENTION NURSE 06/02/2025 11:43 PM INTERVENTION NURSE [facility] - 06/02/2025 11:56 PM INTERVENTION NURSE Sherrie SARS antigen test has been authorized by FDA under an emergency use authorization (EUA) and has been authorized only for the detection of proteins from SARS-CoV-2 and influenza, not for any other viruses or pathogens. Sherrie SARS Antigen STAN is intended for the simultaneous qualitative detection and differentiation of nucleocapsid protein antigen from SARS-CoV-2 directly from nasopharyngeal ([facility]) and nasal (NS) swab specimens collected from [...] O RDERABLES Final Result Performing Organization Address [facility] Co de Phone Number [id number] [address] [place] [phone] * INFLUENZA VIRUS A AND B, ANTIGEN DETECTION (06/02/2025 11:30 PM INTERVENTION NURSE) Pathologist [facility] INFLUENZA A AG NOT DETECTED Not Detected 06/02/2025 11:57 PM INTERVENTION NURSE [facility] INFLUENZA B AG NOT DETECTED Not Detected 06/02/2025 11:57 PM INTERVENTION NURSE [facility] Upper Respiratory ENTIRE NASOPHARYNX / Unknown Collection / Unknown 06/02/2025 11:30 PM INTERVENTION NURSE 06/02/2025 11:43 PM INTERVENTION NURSE [facility] - 06/02/2025 11:57 PM INTERVENTION NURSE Negative results do not rule out infection. If clinically indicated, consider PCR testing which is more sensitive than antigen testing. If PCR testing is desired, consult with your local laboratory as sample recollection may be required. us Antonio Root MD MICROBIOLOGY - GENERAL O RDERABLES Final Result Performing Organization Address [facility] Co de Phone Number [facility] [id number] [address] [place] [address] * (ABNORMAL) TROPONIN BASELINE, 5TH GEN (06/02/2025 11:28 PM INTERVENTION NURSE) TROPONIN T, BASELINE 5TH GEN 35(H) <=15 ng/L 06/03/2025 12:00 AM INTERVENTION NURSE [facility] Blood Collection / Unknown 06/02/2025 11:28 PM INTERVENTION NURSE 06/02/2025 11:43 PM INTERVENTION NURSE [facility] - 06/03/2025 12:00 AM INTERVENTION NURSE Troponin elevated. us Antonio Root MD CHEMISTRY ORDERABLES Fin al Result [facility] CLIA # [id number] [address] [place] [phone] * LACTIC ACID (06/02/2025 11:28 PM INTERVENTION NURSE) LACTIC ACID 1.4 <=2.0 mmol/L 06/02/2025 11:56 PM [facility] Blood BLOOD SPECIMEN / Unknown Collection / Unknown 06/02/2025 11:28 PM INTERVENTION NURSE 06/02/2025 11:43 PM INTERVENTION NURSE Antonio Root MD CHEMISTRY ORDERABLES Fin al Result Performing Organization Address [facility]/ZIP Co de Phone Number [facility] [id number] [address] [place] [phone] * (ABNORMAL) CBC WITH DIFFERENTIAL (06/02/2025 11:28 PM INTERVENTION NURSE) WBC 7.8 4.2 - 9.1 K/uL 06/02/2025 11:50 PM [facility] RBC 4.01(L) 4.63 - 6.08 M/uL 06/02/2025 11:50 PM [facility] HEMOGLOBIN 10.7(L) 13.7 - 17.5 g/dL 06/02/2025 11:50 PM [facility] HEMATOCRIT 34.9(L) 40.1 - 51.0 % 06/02/2025 11:50 PM [facility] MCV 87.0 79.0 - 92.2 fL 06/02/2025 11:50 PM [facility] MCH 26.7 25.7 - 32.2 pg 06/02/2025 11:50 PM [facility] MCHC 30.7(L) 32.3 - 36.5 g/dL 06/02/2025 11:50 PM [facility] RDW 13.0 11.0 - 14.5 % 06/02/2025 11:50 PM [facility] RDW-STDEV 41.0 36.9 - 56.9 fL 06/02/2025 11:50 PM [facility] PLATELETS 278 130 - 400 K/uL 06/02/2025 11:50 PM [facility] MPV 10.0 10.0 - 14.8 fL 06/02/2025 11:50 PM [facility] NEUTROPHILS 62 34 - 68 % 06/02/2025 11:50 PM [facility] LYMPHOCYTES 16(L) 22 - 53 % 06/02/2025 11:50 PM [facility] MONOCYTES 13(H) 5 - 12 % 06/02/2025 11:50 PM [facility] EOSINOPHILS 6 1 - 7 % 06/02/2025 11:50 PM [facility] BASOPHILS 1 0 - 1 % 06/02/2025 11:50 PM [facility] IMMATURE GRANULOCYTES 1 % 06/02/2025 11:50 PM [facility] NEUTROPHIL ABSOLUTE 4.85 1.78 - 5.38 K/uL 06/02/2025 11:50 PM [facility] LYMPHOCYTE ABSOLUTE 1.27 1.20 - 3.40 K/uL 06/02/2025 11:50 PM [facility] MONOCYTE ABSOLUTE 1.03(H) 0.30 - 0.82 K/uL 06/02/2025 11:50 PM [facility] EOSINOPHIL ABSOLUTE 0.48 0.04 - 0.54 K/uL 06/02/2025 11:50 PM [facility] BASOPHILS ABSOLUTE 0.08 0.01 - 0.08 K/uL 06/02/2025 11:50 PM [facility] IMMATURE GRANULOCYTES ABSOLUTE 0.06 K/uL 06/02/2025 11:50 PM [facility] Blood Collection / Unknown 06/02/2025 11:28 PM INTERVENTION NURSE 06/02/2025 11:43 PM INTERVENTION NURSE Antonio Root MD HEMATOLOGY ORDERABLES Fi nal Result Performing Organization Address City/[facility]/ZIP Co de Phone Number [facility] CLIA # [id number] [address] [place] [address] * (ABNORMAL) BRAIN NATRIURETIC PEPTIDE, BNP OR PROBNP (06/02/2025 11:28 PM INTERVENTION NURSE) PROBNP, N TERMINAL 130(H) 0 - 125 pg/mL 06/03/2025 12:00 AM [facility] Comment: INTERPRETIVE COMMENT based on [...] Blood Collection / Unknown 06/02/2025 11:28 PM INTERVENTION NURSE 06/02/2025 11:43 PM INTERVENTION NURSE Antonio Root MD CHEMISTRY ORDERABLES [facility] al Result Performing Organization Address City/[facility] Co de Phone Number [facility] CLIA # [id number] [address] [place] [address] * COMPREHENSIVE METABOLIC PANEL (06/02/2025 11:28 PM INTERVENTION NURSE) SODIUM 141 136 - 145 mmol/L 06/03/2025 12:00 AM [facility] POTASSIUM 3.9 3.5 - 5.1 mmol/L 06/03/2025 12:00 AM [facility] CHLORIDE 103 98 - 107 mmol/L 06/03/2025 12:00 AM [facility] CO2 29 22 - 29 mmol/L 06/03/2025 12:00 AM [facility] CALCIUM 9.4 8.8 - 10.2 mg/dL 06/03/2025 12:00 AM [facility] BUN 10 8 - 23 mg/dL 06/03/2025 12:00 AM [facility] CREATININE 0.99 0.67 - 1.17 mg/dL 06/03/2025 12:00 AM [facility] GLUCOSE 95 74 - 99 mg/dL 06/03/2025 12:00 AM [facility] TOTAL PROTEIN 6.7 6.6 - 8.7 g/dL 06/03/2025 12:00 AM [facility] ALBUMIN 4.0 3.5 - 5.2 g/dL 06/03/2025 12:00 AM [facility] BILIRUBIN TOTAL 0.2 0.0 - 1.2 mg/dL 06/03/2025 12:00 AM [facility] ALKALINE PHOSPHATASE 102 40 - 129 U/L 06/03/2025 12:00 AM [facility] AST 22 0 - 50 U/L 06/03/2025 12:00 AM [facility] ALT 12 0 - 50 U/L 06/03/2025 12:00 AM [facility] GFR >60 >=60 mL/min/1.7 3 sq meter 06/03/2025 12:00 AM [facility] Comment:eGFR calculated with 2020 CKD-EPI equation. Vegetarian diet, extremely high or low muscle mass, and may affect results. Cystatin C with Glomerular Filtration Rate is a suitable alternative for these patients. ANION GAP 9 5 - 20 mmol/L 06/03/2025 12:00 AM [facility] Blood Collection / Unknown 06/02/2025 11:28 PM INTERVENTION NURSE 06/02/2025 11:43 PM INTERVENTION NURSE Antonio Root MD CHEMISTRY ORDERABLES Fin al Result [facility] CLIA # [id number] [address] [place] [address] from Last 3 Months Insurance MEDICAID [place] FOR LIFE [employer]NA [facility] [employer] Advance Directives For more information, please contact: [phone] * Full Code (Latest Code Status on [...] Non-Invasive (i.e. BiPAP, CPAP): Yes Care Teams Discharging Machine Operator Relationship Specialty Start Date End Date Ellie Walker MD [address] [phone] PCP - General Family Practice 09/06/24
--- NOTE | 2025-07-19 05:12 | W.ED.CHESTPA ---
HPI - Chest Pain General: Chief Complaint: Chest Pain Stated Complaint: CP Time Seen by Provider: 07/19/25 05:10 History of Present Illness: Patient is a 69-year-old male with a past medical history of hypertension, COPD on 2 L baseline who presents to the ED with chest pain/shortness of breath. Patient was just discharged by myself a few hours prior for the same thing, he states he was feeling better, was waiting for his outside in the cold, took a deep breath and felt a chilling sensation and minor chest discomfort that soon resolved but checked back in because his would not be coming for a few hours. He denies any trauma or ingestion of any substances. Associated symptoms: Reports dyspnea; Deny abdominal pain or fever(s) Related Data Home Medications ?Medication ?Instructions ?Recorded ?Confirmed aspirin 81 mg tablet,delayed 81 mg PO DAILY 11/27/19 07/09/25 release amlodipine 5 mg tablet 5 mg PO DAILY 11/23/24 07/09/25 guaifenesin 400 mg tablet 400 mg PO TID 11/23/24 07/09/25 melatonin 5 mg tablet 10 mg PO DAILY 11/23/24 07/09/25 omeprazole 20 mg tablet,delayed 20 mg PO BID 11/23/24 07/09/25 release cholecalciferol (vitamin D3) 25 25 mcg PO DAILY 01/27/25 07/09/25 mcg (1,000 unit) capsule (Vitamin D3) docusate sodium 100 mg capsule 100 mg PO BID PRN Constipation 01/27/25 07/09/25 ipratropium 0.5 mg-albuterol 3 mg 3 ml inhalation QID PRN Shortness 01/27/25 07/09/25 (2.5 mg base)/3 mL nebulization Of Breath Or Wheezing soln albuterol sulfate 90 mcg/actuation 2 inh inhalation QID PRN shortness 07/09/25 07/09/25 aerosol inhaler of breath or wheezing food supplemt, lactose-reduced 1 ea PO QID 07/09/25 07/09/25 ipratropium 20 mcg-albuterol 100 1 puff inhalation QID 07/09/25 07/09/25 mcg/actuation mist for inhalation (Combivent Respimat) levocarnitine 500 mg capsule 500 mg PO QAM 07/09/25 07/09/25 omega 5-clu-zor-fish oil 1,000 mg 1 cap PO BID 07/09/25 07/09/25 (120 mg-180 mg) capsule (Fish Oil) polyethylene glycol 3350 17 17 g PO DAILY 07/09/25 07/09/25 gram/dose oral powder (Miralax) tamsulosin 0.4 mg capsule 0.4 mg PO QPM 07/09/25 07/09/25 trazodone 100 mg tablet 200 mg PO BEDTIME 07/09/25 07/09/25 Previous Rx's ?Medication ?Instructions ?Recorded isosorbide mononitrate 30 mg 30 mg PO DAILY #90 tabs 05/23/24 tablet,extended release 24 hr metoprolol succinate 25 mg 12.5 mg (1/2 x 25 mg) PO DAILY #45 11/16/24 tablet,extended release 24 hr tabs budesonide 160 mcg-glycopyr 9 2 inh inhalation BID #10.7 grams 11/25/24 mcg-formot 4.8 mcg/actuation HFA inhaler (Breztri Aerosphere) dextromethorphan-guaifenesin 10 10 ml PO Q4H #237 mL 01/29/25 mg-100 mg/5 mL oral syrup nitroglycerin 0.4 mg sublingual 0.4 mg sublingual Q5M PRN chest 04/18/25 tablet pain #25 tabs Allergies Allergy/AdvReac Type Severity Reaction Status Date / Time No Known Allergies Allergy Verified 08/02/24 22:45 Review of Systems General: Reports: 10 or more systems reviewed and unremarkable except in HPI and below Const: Denies: fever(s) or chills Eyes: Denies: change in vision or eye discharge Card: Reports: chest pain Resp: Reports: dyspnea and non-productive cough GI: Denies: abdominal pain or diarrhea : Denies: difficulty urinating Musc: Denies: neck pain or back pain Skin/Breast: Denies: rash or jaundice Neuro: Denies: headache(s), numbness in extremities or weakness in extremities Dio/Lymph: Denies: easy bruising or easy bleeding PFSH ED PFSH: Medical History (Updated 07/19/25 @ 05:36 by Tommy Whitney DO) Weight loss, unintentional Essential hypertension History of migraine headaches Vitamin D deficiency Hepatitis C Treatment status unknown Hx of colonic polyps Sessile on colonoscopy 02/16 Depression GERD (gastroesophageal reflux disease) Peptic ulcer disease Gastric ulcer on EGD 02/16 COPD (chronic obstructive pulmonary disease) Surgical History History of colonoscopy with polypectomy 2019 Status post excision of lipoma (~01/2019) Hx of appendectomy Family History Father Tuberculosis Denies family history of Diabetes Cancer Social History (Updated 07/09/25 @ 00:09 by Александр Proctor MD) Smoking and tobacco/nicotine status: former use of tobacco/nicotine Quit status (tobacco/nicotine): has quit using Year quit tobacco: 2023 Former quit date comment: Was hospitalized for COPD went home and just never smoked again Second hand smoke exposure: No Alcohol intake: current Alcohol intake frequency: holidays/special occasions only Substance/Drug Use: former 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 Alcohol is none illicits none tobacco now also none after smoking 1 to 1-1/2 packs/day for 42 years lives with his and his nephew. 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 Breath sounds coarse and distant but nothing adventitious, heavy secretion in upper airway breath sounds, saturating in mid 90s on home 2 L, able to speak in full sentences without getting short of breath. Normal sinus rhythm with no murmurs, no leg swelling. Abdomen soft, nondistended and nontender. GCS 15, able to follow commands and answer questions appropriately. Course Vital Signs: Vital signs: Vital Signs Pulse Rate 75 07/19/25 07:56 Respiratory Rate 16 07/19/25 07:56 Blood Pressure 137/73 07/19/25 07:56 Pulse Oximetry 94 07/19/25 07:56 Oxygen Delivery Me thod Nasal Cannula 07/19/25 07:30 MDM - Chest Pain Medical Decision Making -ddx: Needing nursing home, ACS, dysrhythmia, bronchitis - Patient returned to the ED a few hours after urgently being discharged after waiting outside for his for a ride, took a deep breath and had a chilling sensation, no trauma, denies ingestion of substances. Repeated EKG with no changes and patient confessed that he just wanted a warm place to stay and have some food and so no further workup was done at this time, he was given a breathing treatment and allowed to eat and drink until his right, get him, patient was observed with no recurrence of his chest pain no worsening of his shortness of breath and so he was discharged in stable condition and still advised to follow-up with his PCP in a few days, strict return precautions given. No radiology studies performed this visit Clincial Decision Support The following clinical decision support tools were used to aid in care of the patient HEART Score -> History: Slightly Suspicous, EKG: Normal, Age: 65 or more yrs, Risk Factors: >/=3 Risk Factors, Troponin: Baseline Trop 16-45 ng/L. Resulting HEART Score: 5. Discharge Plan Discharge Patient Disposition: Home Clinical Impression: Chronic shortness of breath Condition: Stable Prescriptions: No Action isosorbide mononitrate 30 mg tablet extended release 24 hr 30 mg PO DAILY Qty: 90 3RF metoprolol succinate 25 mg tablet extended release 24 hr 12.5 mg PO DAILY Qty: 45 3RF nitroglycerin 0.4 mg tablet, sublingual 0.4 mg sublingual Q5M PRN (Reason: chest pain) Qty: 25 2RF Rx Instructions: do not exceed 3 doses per episode aspirin 81 mg Tablet,Delayed Release (Dr/Ec) 81 mg PO DAILY tamsulosin 0.4 mg Capsule 0.4 mg PO QPM trazodone 100 mg Tablet 200 mg PO BEDTIME polyethylene glycol 3350 [Miralax] 17 gram/dose Powder 17 g PO DAILY food supplemt, lactose-reduced Liquid 1 ea PO QID omega 3-mdr-sof-fish oil [Fish Oil] 1,000 (120-180) mg Capsule 1 cap PO BID Combivent Respimat 20-100 mcg/actuation Mist 1 puff INHALATION QID Rx Instructions: space evenly during waking hours levocarnitine 500 mg Capsule 500 mg PO QAM Rx Instructions: must administer with a meal/food albuterol sulfate 90 mcg/actuation HFA aerosol inhaler 2 inh inhalation QID PRN (Reason: shortness of breath or wheezing) melatonin 5 mg Tablet 10 mg PO DAILY amlodipine 5 mg tablet 5 mg PO DAILY guaifenesin 400 mg Tablet 400 mg PO TID omeprazole 20 mg Tablet,Delayed Release (Dr/Ec) 20 mg PO BID Breztri Aerosphere 160-9-4.8 mcg/actuation HFA aerosol inhaler 2 inh inhalation BID Qty: 10.7 1RF ipratropium-albuterol 0.5 mg-3 mg(2.5 mg base)/3 mL Solution For Nebulization 3 ml INHALATION QID MDD COPD PRN (Reason: Shortness Of Breath Or Wheezing) docusate sodium 100 mg Capsule 100 mg PO BID PRN (Reason: Constipation) cholecalciferol (vitamin D3) [Vitamin D3] 25 mcg (1,000 unit) Capsule 25 mcg PO DAILY dextromethorphan-guaifenesin 10-100 mg/5 mL Syrup 10 ml PO Q4H Qty: 237 1RF Discharge Orders: Discharge ED (Routine); Ordered 07/19/25 Ordered By: Tommy Whitney Referrals: Ellie Irene MD [Primary Care Provider, Family Practice] Discharge Diet: Usual diet Discharge Activity: Resume usual activity Patient Instructions: Opioid Safety, Pain Management, Patient Portal & Sarah Instructions Print Language: Greenlandic Coding Level of Care Code ED [employer] F[employer] Heart Score HEART Score Components History: Slightly Suspicous EKG: Normal Age: 65 or more yrs Risk Factors: >/=3 Risk Factors Troponin: Baseline Trop 16-45 ng/L HEART Score RESULT HEART Score: 5
--- NOTE | 2025-07-19 05:13 | ECG_ITS ---
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
[2025-07-19 05:25] VITALS: PULSE 82; RESP 22; O2SAT 95
[2025-07-19 05:28] VITALS: PULSE 80; RESP 20; O2SAT 96
[2025-07-19 07:30] VITALS: BP 127/67; PULSE 79; O2SAT 99
[2025-07-19 07:56] VITALS: BP 137/73; PULSE 75; RESP 16; O2SAT 94
== END 2025-07-19 08:08 | disposition home or self-care (01) ==
PROVIDERS: Emergency Provider Student in an Organized Health Care Education/Training Program; PCP Family Medicine
DX: R06.02 Shortness of breath (principal); Z79.82 Long term (current) use of aspirin; Z87.891 Personal history of nicotine dependence; J44.9 Chronic obstructive pulmonary disease, unspecified; I10 Essential (primary) hypertension
CPT/HCPCS: 93005; 94640; 99283; J9999

== ENCOUNTER 2025-07-24 11:45 | Observation (INO) | payer OTHER, SELFPAY ==
--- OUTSIDE RECORDS SUMMARY | 2016-08-25 07:00 | XMS_ITS | Continuity of Care Document ---
Author Organization [facility] Address [address] [place] [address] Phone Care Team Providers Care Scroll Shear Operator Name Role Phone Services, Substance Abuse Unavailable Damian Doll Unavailable Unavailable Procedures Procedure Date AOD Screening; Intake Advance Directives Directive Yes / No Effective Date File Name No Information Encounters Encounter Description Practice Location Reason(s) For Visit Diagnoses Date Provider Providers Copied on Encounter [facility], [address] [place] [address], [id number], tel:[phone] JST AOD No Information Services Substance Abuse. [address] [place] [address], [address]. tel:[phone] Consulting Provider: Damian Hernandez, [address] [place] [address], [address]. Family History Family Member Type Diagnosis Age At Onset No Information Payers Payer name Insurance type Covered democrat ID Authoriza tion(s) [facility] Drug MediCal 11 [id number] Social History Type Description Quantity Date Captured Comments Sex Male Smoking Status No Information Chief Complaint And Reason For Visit No Information Reason For Referral Reason For Referral No Information History Of Present Illness Encounter Date Complaint History Of Prese nt Illness No Information Functional Status Date Functional Assessmen t No Information Instructions Date Instruction Additional Infor mation No Information Assessments Type Assessment Date No Information Patient Care Teams Name Effective Dates (start - stop) Status Members No Information
--- OUTSIDE RECORDS SUMMARY | 2016-08-25 07:00 | XMS_ITS | Continuity of Care Document ---
Author Organization [facility] Address [address] [place] [address] Phone Care Team Providers Care Costumer Assistant Name Role Phone Services, Substance Abuse Unavailable Damian Doll Unavailable Unavailable Procedures Procedure Date AOD Screening; Intake Advance Directives Directive Yes / No Effective Date File Name No Information Encounters Encounter Description Practice Location Reason(s) For Visit Diagnoses Date Provider Providers Copied on Encounter [facility], [address] [place] [address], [id number], tel:[phone] JST AOD No Information Services Substance Abuse. [address] [place] [address], [address]. tel:[phone] Consulting Provider: Damian Hernandez, [address] [place] [address], [address]. Family History Family Member Type Diagnosis Age At Onset No Information Payers Payer name Insurance type Covered constitution party ID Authoriza tion(s) [facility] Drug MediCal 11 [id number] Social History Type Description Quantity Date Captured [...]
--- OUTSIDE RECORDS SUMMARY | 2018-10-28 09:26 | XMS_ITS | Continuity of Care Document ---
Author Organization [facility] [place] Address [address] [place] [address] Phone Care Team Providers Care Manufacturing Technology Professor Name Role Phone Abraham Bower MD Unavailable Unavailable Allergies, Adverse Reactions, Alerts Substance Reaction Status Criticality No Known Allergies Active No Inform ation Medications Medication Instructions Dosage Effective Dates (start - stop) Status Comments Topamax 50 mg tablet 2 tab po HS - Act carmina ProAir HFA 90 mcg/actuation aerosol inhaler inhale 2 puff by inhalation route every 4 - 6 hours as needed - Active Aspir-81 81 mg tablet,delayed release take 1 tablet by oral route every day - Active cholecalciferol (vitamin D3) 1,000 unit tablet take 1 tab oral route every day - Active citalopram 40 mg tablet take 1 tablet by oral route every day 40 MG - Active omeprazole 20 mg capsule,delayed release take 1 capsule by oral route every day 30 minutes to 1 hour before a meal 20 MG - Active polyethylene glycol 3350 17 gram/dose oral powder take (17G) by oral route every day mixed with 8 oz. water, juice, soda, coffee or tea - Active trazodone 100 mg tablet take 2 tablet by oral route every bedtime after meals 200 MG - Active Symbicort 80 mcg-4.5 mcg/actuation HFA aerosol inhaler inhale 2 puff by inhalation route 2 times every day in the morning and evening 2.00 puff - Active Spiriva Respimat 2.5 mcg/actuation solution for inhalation inhale 2 puff by inhalation route 2 times every day at the same time each day 5 MCG - Active Advance Directives Directive Yes / No Effective Date File Name No Information Encounters Encounter Description Practice Location Reason(s) For Visit Diagnoses Date Provider [facility], [address], [place], [address], [place] tel:[phone] [facility] No Information Sathish Rosario. [address], [place], [id number], [place]. tel:[phone] [facility], [address], [place], [address], [place] tel:[phone] [facility] Headaches (chief complaint) New daily persistent headache Sathish Rosario. [address], [place], [id number], [place]. tel:[phone] [facility], [address], [place], [address], [place] tel:[phone] [facility] Headaches (chief complaint)A bnormal CT (chief complaint) New daily persistent headacheAbnormal brain scan Sathish Rosario. [address], [place], [id number], [place]. tel:[phone] Family History Family Member Type Diagnosis Age At Onset Father Problem (finding) Multiple medic al problems (Cause Of ) Mother Problem (finding) Unknown cause (Cause Of ) Payers Payer name Insurance type Covered alliance party ID Tiffambika stephanielilian(s) [facility] () [id number] Medicaid [id number] Social History Type Description Quantity Date Captured Comments Sex Male Smoking Status No Information Chief Complaint And Reason For Visit No Information Plan Of Treatment Date Type Action Status Goal Tobacco cessation counseling completed Goal Tobacco cessation counseling completed Patient Education Headache: Care Instruct ions completed Patient Education Headache: Care Instruct ions completed History Of Present Illness Encounter Date Complaint History Of Prese nt Illness Headaches The patient retu rns to see me with his today. During the last office visit, I had increased his Topamax to 75 mg p.o. HS. Previously, he would have 2-3 headaches daily. Nowadays, he has 1-2 headaches daily. No report of excessive daytime drowsiness, cognitive impairment or limb numbness on this medication. He claims that he had his ESR done at the [facility] in [place], [place] but I do not have the result currently.Lab test: 1. CT head scan: 8 mm focal density in the right basal ganglion suggestive of dystrophic calcification versus a small aneurysm. Abnormal CT He had a CT head scan done in late May 2018. It was reported to show right thalamic calcification and mild cortical atrophy. There was no mention of brain infarct or tumor. Headaches I was requested to see this 62-year-old man by Dr. Freddy Wade, with regards to evaluation of headaches and abnormal CT head scan. The following history was provided to me by the patient. This condition came on gradually about 1 year ago and there is no history of preceding head trauma. He complains of a pressure pain over the occiput. Initially, this headache was intermittent, but it has become constant since September 2017. They have been associated with nausea, photophobia, sonophobia and improvement with sleep. He has chronic neck pain since 2011, but this does not usually aggravate the above condition. He has been able to obtain some relief from the headaches by lying down and taking a nap. In early December 2017, he had 2 bouts of blurry vision and visualization of black spots in front of both eyes, but he never went blind. He is currently on Topamax 25 mg p.o. b.i.d. and oral Imitrex 25 mg p.r.n. He feels that both of these medications do help his headaches. The patient denies having a history of migraine or sinus headaches. Instructions Date Instruction Additional Infor mation No Information Assessments Type Assessment Date No Information
--- OUTSIDE RECORDS SUMMARY | 2024-07-30 07:50 | XMS_ITS ---
Author Organization [facility] Address [address] [place] [address] Care Team Providers Care Flight Line Mechanic Name Role Phone Judith Lieberman APRN Primary Care Provider Unav ailAngel Luis Alcocer Unavailable [phone] [place], [place] Unavailable Unavailable REASON FOR VISIT [phone] Encounters Encounter Location Date Provider Diagnosis [facility] [address] [place] [address] [place] [address] 07/30/2024 Angel Luis Sebastian Plan Of Treatment Next Appt Details Provider Name:Angel Lusi Sebastian, 10/16/2025 02:10:00 PM, [address] [place] [address] [place], [address], Progress Notes * CHI KEYS ADOB:1955 (69 yo M)Acc No.[id number]:07/30/2024 Progress Notes Patient: CHI MCGINNIS Provider: Jalil Sebastian MD :1955 A ge:68 Y S ex:Male Date:07/30/2024 Address:[address] [place] [phone] Pcp:Judith Lieberman APRN Subjective: * Chief Complaints: * 6 [id number] Care Plan Details* * Electronic signature of Evelyn Sebastian MD on 07/25/2025 at 06:54 AM ACID PATROLLER Sign off status: Pending * Provider: Jalil Sebastian MD Date: 1 Generated for Gabrielle mcclendon/Jourdan/Katsmitting on: 1 09/25/2024 06:54 AM ACID PATROLLER
--- OUTSIDE RECORDS SUMMARY | 2024-07-30 07:50 | XMS_ITS ---
Author Organization [facility] Address [address] [place] [address] Care Team Providers Care Backup Administrator Name Role Phone Judith Lieberman APRN Primary Care Provider Unav ailAngel Luis Alcocer Unavailable [phone] [place], [place] Unavailable Unavailable REASON FOR VISIT [phone] Encounters Encounter Location Date Provider Diagnosis [facility] [address] [place] [address] [place] [address] 07/30/2024 Angel Luis Sebastian Plan Of Treatment Next Appt Details Provider Name:Angel Luis Sebastian, 10/16/2025 02:10:00 PM, [address] [place] [address] [place], [address], Progress Notes * CHI KEYS ADOB:1955 (69 yo M)Acc No.[id number]:07/30/2024 Progress Notes Patient: CHI MCGINNIS Provider: Jalil Sebastian MD :1955 A ge:68 Y S ex:Male Date:07/30/2024 Address:[address] [place] [phone] Pcp:Judith Lieberman APRN Subjective: * Chief Complaints: * 6 [id number] Care Plan Details* * Electronic signature of Evelyn Sebastian MD on 07/24/2025 at 11:53 AM SHAKE SAWYER Sign off status: Pending * Provider: Jalil Sebastian MD Date: 1 Generated for Gabrielle mcclendon/Jourdan/Katsmitting on: 1 09/24/2024 11:53 AM SHAKE SAWYER
--- OUTSIDE RECORDS SUMMARY | 2024-08-06 06:50 | XMS_ITS ---
Author Organization [facility] Address [address] [place] [address] Care Team Providers Care Adult Probation Officer Name Role Phone Judith Lieberman APRN Primary Care Provider Unav ailAngel Luis Alcocer Unavailable [phone] [place] Unavailable Unavailable REASON FOR VISIT [phone] Encounters Encounter Location Date Provider Diagnosis [facility] [address] [place] [address] [place] [address] 08/06/2024 Angel Luis Sebastian Plan Of Treatment Next Appt Details Provider Name:Angel Luis Sebastian, 10/16/2025 02:10:00 PM, [address] [place] [address] [place], [address], Progress Notes * CHI KEYS ADOB:1955 (69 yo M)Acc No.[id number]:08/06/2024 Progress Notes Patient: CHI MCGINNIS Provider: Jalil Sebastian MD :1955 A ge:68 Y S ex:Male Date:08/06/2024 Address:[address] [place] [phone] Pcp:Judith Lieberman APRN Subjective: * Chief Complaints: * 6 [id number] Care Plan Details* * Electronic signature of Evelyn Sebastian MD on 07/24/2025 at 11:53 AM ENVIRONMENTAL FIELD OFFICE MANAGER Sign off status: Pending * Provider: Jalil Sebastian MD Date: 0 08/06/2024 Generated for Gabrielle mcclendon/Jourdan/Katsmitting on: 1 09/24/2024 11:53 AM ENVIRONMENTAL FIELD OFFICE MANAGER
--- OUTSIDE RECORDS SUMMARY | 2024-08-06 06:50 | XMS_ITS ---
Author Organization [facility] Address [address] [place] [address] Care Team Providers Care Committee Member Name Role Phone Judith Lieberman APRN Primary Care Provider Unav ailAngel Luis Alcocer Unavailable [phone] [place], [place] Unavailable Unavailable REASON FOR VISIT [phone] Encounters Encounter Location Date Provider Diagnosis [facility] [address] [place] [address] [place] [address] 08/06/2024 Angel Luis Sebastian Plan Of Treatment Next Appt Details Provider Name:Angel Luis Sebastian, 10/16/2025 02:10:00 PM, [address] [place] [address] [place], [address], Progress Notes * CHI KEYS ADOB:1955 (69 yo M)Acc No.[id number]:08/06/2024 Progress Notes Patient: CHI MCGINNIS Provider: Jalil Sebastian MD :1955 A ge:68 Y S ex:Male Date:08/06/2024 Address:[address] [place] [phone] Pcp:Judith Lieberman APRN Subjective: * Chief Complaints: * [phone] [id number] Care Plan Details* * Electronic signature of Evelyn Sebastian MD on 07/25/2025 at 06:54 AM BAGGAGE HANDLER Sign off status: Pending * Provider: Jalil Sebastian MD Date: 0 08/06/2024 Generated for Gabrielle mcclendon/Jourdan/Katsmitting on: 1 09/25/2024 06:54 AM BAGGAGE HANDLER
--- OUTSIDE RECORDS SUMMARY | 2024-08-16 05:30 | XMS_ITS ---
Author Organization [facility] Address [address] [place] [address] Care Team Providers Care Senior Enterprise Architect Name Role Phone Judith Lieberman APRN Primary Care Provider Unav ailAngel Luis Alcocer Unavailable [phone] [place], [place] Unavailable Unavailable REASON FOR VISIT [phone] Encounters Encounter Location Date Provider Diagnosis [facility] [address] [place] [address] [place] [address] 08/16/2024 Angel Luis Sebastian Plan Of Treatment Next Appt Details Provider Name:Angel Luis Sebastian, 10/16/2025 02:10:00 PM, [address] [place] [address] [place], [address], Progress Notes * CHI KEYS ADOB:1955 (69 yo M)Acc No.[id number]:08/16/2024 Progress Notes Patient: CHI MCGINNIS Provider: Jalil Sebastian MD :1955 A ge:68 Y S ex:Male Date:08/16/2024 Address:[address] [place] [phone] Pcp:Jduith Lieberman APRN Subjective: * Chief Complaints: * 6 [id number] Care Plan Details* * Electronic signature of Evelyn Sebastian MD on 07/24/2025 at 11:54 AM MICROSOFT EXCHANGE ADMINISTRATOR Sign off status: Pending * Provider: Jalil Sebastian MD Date: 0 08/16/2024 Generated for Gabrielle mcclendon/Jourdan/Katsmitting on: 1 09/24/2024 11:54 AM MICROSOFT EXCHANGE ADMINISTRATOR
--- OUTSIDE RECORDS SUMMARY | 2024-08-16 05:30 | XMS_ITS ---
Author Organization [facility] Address [address] [place] [address] Care Team Providers Care Hvac Sheet Metal Installer Name Role Phone Judith Lieberman APRN Primary Care Provider Unav ailAngel Luis Alcocer Unavailable [phone] [place], [place] Unavailable Unavailable REASON FOR VISIT [phone] Encounters Encounter Location Date Provider Diagnosis [facility] [address] [place] [address] [place] [address] 08/16/2024 Angel Luis Sebastian Plan Of Treatment Next Appt Details Provider Name:Angel Luis Sebastian, 10/16/2025 02:10:00 PM, [address] [place] [address] [place], [address], Progress Notes * CHI KEYS ADOB:1955 (69 yo M)Acc No.[id number]:08/16/2024 Progress Notes Patient: CHI MCGINNIS Provider: Jalil Sebastian MD :1955 A ge:68 Y S ex:Male Date:08/16/2024 Address:[address] [place] [phone] Pcp:Judith Lieberman APRN Subjective: * Chief Complaints: * 6 [id number] Care Plan Details* * Electronic signature of Evelyn Sebastian MD on 07/25/2025 at 06:55 AM SUPERVISOR FIBERGLASS BOAT ASSEMBLY Sign off status: Pending * Provider: Jalil Sebastian MD Date: 0 08/16/2024 Generated for Gabrielle mcclendon/Jourdan/Katsmitting on: 1 09/25/2024 06:55 AM SUPERVISOR FIBERGLASS BOAT ASSEMBLY
--- OUTSIDE RECORDS SUMMARY | 2024-08-22 05:30 | XMS_ITS ---
Author Organization [facility] Address [address] [place] [address] Care Team Providers Care Insurance Assistant Name Role Phone Judith Lieberman APRN Primary Care Provider Unav ailAngel Luis Alcocer Unavailable [phone] [place], [place] Unavailable Unavailable REASON FOR VISIT [phone] Encounters Encounter Location Date Provider Diagnosis [facility] [address] [place] [address] [place] [address] 08/22/2024 Angel Luis Sebastian Plan Of Treatment Next Appt Details Provider Name:Angel Luis Sebastian, 10/16/2025 02:10:00 PM, [address] [place] [address] [place], [address], Progress Notes * CHI KEYS ADOB:1955 (69 yo M)Acc No.[id number]:08/22/2024 Progress Notes Patient: CHI MCGINNIS Provider: Jalil Sebastian MD :1955 A ge:68 Y S ex:Male Date:08/22/2024 Address:[address] [place] [phone] Pcp:Judith Lieberman APRN Subjective: * Chief Complaints: * [phone] [id number] Care Plan Details* * Electronic signature of Evelyn Sebastian MD on 07/25/2025 at 06:54 AM KELLY MACHINE OPERATOR Sign off status: Pending * Provider: Jalil Sebastian MD Date: 0 08/22/2024 Generated for Gabrielle mcclendon/Jourdan/Katsmitting on: 1 09/25/2024 06:54 AM KELLY MACHINE OPERATOR
--- OUTSIDE RECORDS SUMMARY | 2024-08-22 05:30 | XMS_ITS ---
Author Organization [facility] Address [address] [place] [address] Care Team Providers Care Office Administration Instructor Name Role Phone Judith Lieberman APRN Primary Care Provider Unav ailAngel Luis Alcocer Unavailable [phone] [place], [place] Unavailable Unavailable REASON FOR VISIT [phone] Encounters Encounter Location Date Provider Diagnosis [facility] [address] [place] [address] [place] [address] 08/22/2024 Angel Luis Sebastian Plan Of Treatment Next Appt Details Provider Name:Angel Luis Sebastian, 10/16/2025 02:10:00 PM, [address] [place] [address] [place], [address], Progress Notes * CHI KEYS ADOB:1955 (69 yo M)Acc No.[id number]:08/22/2024 Progress Notes Patient: CHI MCGINNIS Provider: Jalil Sebastian MD :1955 A ge:68 Y S ex:Male Date:08/22/2024 Address:[address] [place] [phone] Pcp:Judith Lieberman APRN Subjective: * Chief Complaints: * [id number] Care Plan Details* * Electronic signature of Evelyn Sebastian MD on 07/24/2025 at 11:53 AM NUT GRADER Sign off status: Pending * Provider: Jalil Sebastian MD Date: 0 08/22/2024 Generated for Gabrielle mcclendon/Jourdan/Katsmitting on: 1 09/24/2024 11:53 AM NUT GRADER
--- OUTSIDE RECORDS SUMMARY | 2024-12-10 07:30 | XMS_ITS ---
Author Organization [facility] Address [address] [place] [address] Care Team Providers Care Distillery Miller Helper Name Role Phone Judith Lieberman APRN Primary Care Provider Unav ailable Angel Luis Sebastian Unavailable [phone] [place], [place] Unavailable Unavailable Encounters Encounter Location Date Provider Diagnosis [facility] [address] [place] [address] [place] [address] 12/10/2024 Angel Luis Sebastian Plan Of Treatment Next Appt Details Provider Name:Angel Luis Ibarraoscar, 10/16/2025 02:10:00 PM, [address] [place] [address] [address] FLOWERS [address] [place] [address], [place], [phone], Progress Notes * CHI KEYS ADOB:1955 (69 yo M)Acc No.[id number]:12/10/2024 Progress Notes Patient: CHI MCGINNIS Provider: Jalil Sebastian MD :1955 A ge:69 Y S ex:Male Date:12/10/2024 Address:[address] [place], [place] [phone] Pcp:Judith Lieberman APRN Care Plan Details* * Electronic signature of Evelyn Sebastian MD on 07/24/2025 at 11:53 AM TALENT ACQUISITION ADMINISTRATOR Sign off status: Pending * Provider: Jalil Sebastian MD Date: 0 12/10/2024 Generated for Kaleyi ng/Fagayatrig/eTransmitting on: 1 09/24/2024 11:53 AM TALENT ACQUISITION ADMINISTRATOR
--- OUTSIDE RECORDS SUMMARY | 2024-12-10 07:30 | XMS_ITS ---
Author Organization [facility] Address [address] [place] [address] Care Team Providers Care Private Wealth Advisor Name Role Phone Judith Lieberman APRN Primary Care Provider Unav ailable Angel Luis Sebastian Unavailable [phone] [place], [place] Unavailable Unavailable Encounters Encounter Location Date Provider Diagnosis [facility] [address] [place] [address] [place] [address] 12/10/2024 Angel Luis Sebastian Plan Of Treatment Next Appt Details Provider Name:Angel Luis Ibarraoscar, 10/16/2025 02:10:00 PM, [address] [place] [address] DR FLOWERS [address] [place] [address], [place], [address], Progress Notes * CHI KEYS ADOB:1955 (69 yo M)Acc No.[id number]:12/10/2024 Progress Notes Patient: CHI MCGINNIS Provider: Jalil Sebastian MD :1955 A ge:69 Y S ex:Male Date:12/10/2024 Address:[address] [place], [place] [phone] Pcp:Judith Lieberman APRN Care Plan Details* * Electronic signature of Evelyn Sebastian MD on 07/25/2025 at 06:54 AM LAWN CARE SPECIALIST Sign off status: Pending * Provider: Jalil Sebastian MD Date: 0 12/10/2024 Generated for Kaleyi ng/Fagayatrig/eTransmitting on: 1 09/25/2024 06:54 AM LAWN CARE SPECIALIST
--- OUTSIDE RECORDS SUMMARY | 2024-12-17 08:30 | XMS_ITS ---
Author Organization [facility] Address [address] [place] [address] Care Team Providers Care Nc Machinist Name Role Phone Judith Lieberman APRN Primary Care Provider Angel Luis Shields Unavailable [phone] [place], [place] Unavailable Unavailable REASON FOR VISIT Shortness of breath Encounters Encounter Location Date Provider Diagnosis [facility] [address] [place] [address] [place] [address] 12/17/2024 Angel Luis Jaz Solitary pulmonary nodule [...] Name:Angel Luis Fung Staceyoscar, 10/16/2025 02:10:00 PM, [address] [place] [address] [address] MOTA, [place], [address], History and Physical Notes * HPI (History [...] * CHI KEYS ADOB:1955 (69 yo M)Acc No.[id number]:12/17/2024 Progress Notes Patient: Shwetha GERSONCHI Provider: Jalil Sebastian MD :1955 A ge:69 Y S ex:Male Date:12/17/2024 Address:[address] [place], [place] [phone] Pcp:Judith Lieberman APRN Subjective: * Chief Complaints: [...] Sebastian MD on 07/24/2025 at 11:53 AM SOFTWARE APPLICATIONS ARCHITECT Sign off status: Pending * Provider: Jalil Sebastian MD Date: 0 12/17/2024 Generated for Gabrielle mcclendon/Jourdan/eTransmitting on: 1 09/24/2024 11:53 AM SOFTWARE APPLICATIONS ARCHITECT
--- OUTSIDE RECORDS SUMMARY | 2024-12-17 08:30 | XMS_ITS ---
Author Organization [facility] Address [address] [place] [address] Care Team Providers Care Dump Grounds Checker Name Role Phone Judith Lieberman APRN Primary Care Provider Angel Luis Shields Unavailable [phone] [place], [place] Unavailable Unavailable REASON FOR VISIT Shortness of breath Encounters Encounter Location Date Provider Diagnosis [facility] [address] [place] [address] [place] [address] 12/17/2024 Angel Luis Jaz Solitary pulmonary nodule [...] Name:Angel Luis Fung Staceyoscar, 10/16/2025 02:10:00 PM, [address] [place] [address] [address] MOTA, [place], [address], History and Physical Notes * HPI (History [...] * CHI KEYS ADOB:1955 (69 yo M)Acc No.[id number]:12/17/2024 Progress Notes Patient: Shwetha GERSONCHI Provider: Jalil Sebastian MD :1955 A ge:69 Y S ex:Male Date:12/17/2024 Address:[address] [place], [place] [phone] Pcp:Judith Lieberman APRN Subjective: * Chief Complaints: [...] Sebastian MD on 07/25/2025 at 06:54 AM TERRAZZO GRINDER Sign off status: Pending * Provider: Jalil Sebastian MD Date: 0 12/17/2024 Generated for Gabrielle mcclendon/Jourdan/eTransmitting on: 1 09/25/2024 06:54 AM TERRAZZO GRINDER
--- OUTSIDE RECORDS SUMMARY | 2025-07-17 05:40 | XMS_ITS ---
Author Organization [facility] Address [address] [place] [address] Care Team Providers Care Car Distributor Name Role Phone Judith Lieberman APRN Primary Care Provider Ryland IbarraoscarAngel Luis Unavailable [phone] [place], [place] Unavailable Unavailable REASON FOR VISIT Shortness of [...] Active Encounters Encounter Location Date Provider Diagnosis [facility] [address] [place] [address] [place] [address] 07/17/2025 Angel Luis Sebastian Solitary pulmonary nodule [...] Name:Angel Luis Fung Jaz, 10/16/2025 02:10:00 PM, [address] [place] [address] [address], [place], [address], History and Physical Notes * HPI (History [...] * CHI KEYS ADOB:1955 (69 yo M)Acc No.[id number]:07/17/2025 Progress Notes Patient: CHI MCGINNIS Provider: Jalil Sebastian MD :1955 A ge:69 Y S ex:Male Date:07/17/2025 Address:[address] [place], [place] [phone] Pcp:Judith Lieberman APRN Subjective: * Chief Complaints: [...] Sebastian MD on 07/24/2025 at 11:53 AM SUB PRIOR Sign off status: Pending * Provider: Jalil Sebastian MD Date: 09/17/2024 Generated for Gabrielle mcclendon/Jourdan/Danniitting on: 09/24/2024 11:53 AM SUB PRIOR
--- OUTSIDE RECORDS SUMMARY | 2025-07-17 05:40 | XMS_ITS ---
Author Organization [facility] Address [address] [place] [address] Care Team Providers Care Building Drafter Name Role Phone Judith Lieberman APRN Primary Care Provider Ryland IbarraoscarAngel Luis Unavailable [phone] [place], [employer] Unavailable Unavailable REASON FOR VISIT Shortness of [...] Active Encounters Encounter Location Date Provider Diagnosis [facility] [address] [place] [address] [place] [address] 07/17/2025 Angel Luis Sebastian Solitary pulmonary nodule [...] Name:Angel Luis Fung Jaz, 10/16/2025 02:10:00 PM, [address] [place] [address] [address], [place], [address], History and Physical Notes * HPI (History [...] * CHI KEYS ADOB:1955 (69 yo M)Acc No.[id number]:07/17/2025 Progress Notes Patient: CHI MCGINNIS Provider: Jalil Sebastian MD :1955 A ge:69 Y S ex:Male Date:07/17/2025 Address:[address] [place], [place] [phone] Pcp:Judith Lieberman APRN Subjective: * Chief Complaints: [...] Sebastian MD on 07/25/2025 at 06:54 AM CATERING SERVICE MANAGER Sign off status: Pending * Provider: Jalil Sebastian MD Date: 09/17/2024 Generated for Gabrielle mcclendon/Jourdan/Danniitting on: 09/25/2024 06:54 AM CATERING SERVICE MANAGER
[2025-07-24] VITALS (14 sets, daily range): BP systolic 102–128; BP diastolic 55–71; PULSE 82–121; RESP 16–25; TEMP 36.7–37; O2SAT 94–98
--- OUTSIDE RECORDS SUMMARY | 2025-07-24 11:54 | XMS_ITS | Clinical Summary ---
Author Organization [facility] Address [address] [place] [address] Phone Care Team Providers Care Recreation Establishment Manager Name Role Phone Ellie Walker MD Primary Care Provider [phone] Allergies Active Allergy Reactions Criticality Noted Date [...] Breath. Active fluticasone propionate (FLONASE) 50 mcg/spray [place], Suspension nasal inhaler Administer 1 [place] in each nostril 2 times daily. Active [...] Department Care Team Description 06/02/2025 11:08 PM CERTIFIED NUTRITIONIST - 06/03/2025 10:07 AM [facility] Emergency [facility] Emergency Medicine [address] [place] [address] Antonio Root MD Acute bronchitis, unspecified organism [...] PNEUM OCOCCAL CONJUGATE VACCINE 20-VALENT (PCV20), POLYSACCHARIDE [id number] CONJUGATE, ADJUVANT 0.5 ML (PF) IM 01/26/2024 [...] for future doctor visits, pick pulling machine tender medication, etc.? No 2024 Housing Stability Answer [...] on file Legal Sex Male 12:54 PM CERTIFIED NUTRITIONIST Gender Identity Not on file Sexual Orientation Not on file Last Filed Vital Signs Vital Sign Reading Time Taken Comments Blood Pressure 134/68 06/03/2025 10:00 AM CERTIFIED NUTRITIONIST Pulse 94 06/03/2025 10:00 AM CERTIFIED NUTRITIONIST Temperature 36.6 C (97.9 F) 06/02/2025 11:12 PM CERTIFIED NUTRITIONIST Respiratory Rate 20 06/03/2025 10:0 0 AM CERTIFIED NUTRITIONIST Oxygen Saturation 99% 06/03/2025 10: 00 AM CERTIFIED NUTRITIONIST Inhaled Oxygen Concentration - - Weight 53.4 kg (117 lb 12.8 oz) 025 11:12 PM CERTIFIED NUTRITIONIST Height 162.6 cm (5' 4 ) 06/02/2025 11:1 2 PM CERTIFIED NUTRITIONIST Body Mass Index 20.22 06/02/2025 11:12 PM CERTIFIED NUTRITIONIST Plan of Treatment Health Maintenance Due Date [...] Abdominal Aortic Aneurysm (A AA) Screening 2021 Medicare Advantage (PR) Preventative Visit/Annual Wellness Visit 08/01/2024 DTAP/TDAP/TD VACCINES (5 - T d or Tdap) 12/06/2032 12/06/2022, 12/06/2022, 07/22/2017, Additional history exists PNEUMOCOCCAL VACCINE 50+ YEARS Completed 0 01/26/2024, 12/11/2018, 04/25/2017, Additional history exists INFLUENZA VACCINE Completed 05/01/2025 Procedures Procedure Name Priority Date/Time Associated Diagnosis Comments TROPONIN 2 HR, 5TH GEN Timed Study 06/03/2025 1:25 AM CERTIFIED NUTRITIONIST XR CHEST PA OR AP 1 VW Stat 06/02/2025 11:48 PM CERTIFIED NUTRITIONIST COVID-19 ANTIGEN Stat 06/02/2025 11:3 0 PM CERTIFIED NUTRITIONIST INFLUENZA VIRUS A AND B, ANTIGEN DETECTION Stat 06/02/2025 11:30 PM CERTIFIED NUTRITIONIST TROPONIN BASELINE, 5TH GEN Stat 06/02/2025 11:28 PM CERTIFIED NUTRITIONIST LACTIC ACID Stat 06/02/2025 11:28 PM CERTIFIED NUTRITIONIST BRAIN NATRIURETIC PEPTIDE, BNP OR PROBNP Stat 06/02/2025 11:28 PM CERTIFIED NUTRITIONIST COMPREHENSIVE METABOLIC PANEL Stat 06/02/2025 11:28 PM CERTIFIED NUTRITIONIST CBC WITH DIFFERENTIAL Stat 06/02/2025 11:28 PM CERTIFIED NUTRITIONIST from Last 3 Months Results * (ABNORMAL) TROPONIN 2 HR, 5TH GEN (06/03/2025 1:25 AM CERTIFIED NUTRITIONIST) TROPONIN T, 2 HR 5TH GEN 33(H) <=15 ng/L 06/03/2025 1:52 AM CERTIFIED NUTRITIONIST [facility] DELTA 2HR TROPONIN T -2 See Interp. 06/03/2025 1:52 AM CERTIFIED NUTRITIONIST [facility] Blood BLOOD SPECIMEN / Unknown Collection / Unknown 06/03/2025 1:25 AM CERTIFIED NUTRITIONIST 06/03/2025 1:30 AM CERTIFIED NUTRITIONIST Narrative [facility] - 06/03/2025 1:52 AM CERTIFIED NUTRITIONIST Troponin elevated. Delta not changing. us Antonio Root MD CHEMISTRY ORDERABLES Fin al Result [facility] CLIA # [id number] [address] [place] [address] * XR CHEST PA OR AP 1 VW (06/02/2025 11:48 PM CERTIFIED NUTRITIONIST) Anatomical Region Laterality Modality Chest Computed Radiogr aphy 06/02/2025 11:4 8 PM CERTIFIED NUTRITIONIST Impressions 06/03/2025 12:55 AM CERTIFIED NUTRITIONIST IMPRESSION: No focal consolidation. Radiographic evidence of COPD. Narrative 06/03/2025 12:55 AM CERTIFIED NUTRITIONIST EXAM: XR CHEST PA OR AP 1 [...] abnormalities. - Additional comments: None. Procedure Note mD Stevens MD - 06/03/2025 EXAM: XR CHEST [...] Result * COVID-19 ANTIGEN (06/02/2025 11:30 PM CERTIFIED NUTRITIONIST) COVID-19 ANTIGEN Presumptive Negative Presumptive Negative 06/02/2025 11:56 PM CERTIFIED NUTRITIONIST [facility] Upper Respiratory ANTERIOR NARES SWAB / Unknown Collection / Unknown 06/02/2025 11:30 PM CERTIFIED NUTRITIONIST 06/02/2025 11:43 PM CERTIFIED NUTRITIONIST [facility] - 06/02/2025 11:56 PM CERTIFIED NUTRITIONIST Sherrie SARS antigen test has been authorized by FDA under an emergency use authorization (EUA) and has been authorized only for the detection of proteins from SARS-CoV-2 and influenza, not for any other viruses or pathogens. Sherrie SARS Antigen STAN is intended for the simultaneous qualitative detection and differentiation of nucleocapsid protein antigen from SARS-CoV-2 directly from nasopharyngeal (RECEIVING MANAGER) and nasal (NS) swab specimens collected from [...] O RDERABLES Final Result Performing Organization Address [facility] Co de Phone Number [facility] [id number] [address] [place] [phone] * INFLUENZA VIRUS A AND B, ANTIGEN DETECTION (06/02/2025 11:30 PM CERTIFIED NUTRITIONIST) Pathologist [facility] INFLUENZA A AG NOT DETECTED Not Detected 06/02/2025 11:57 PM CERTIFIED NUTRITIONIST [facility] INFLUENZA B AG NOT DETECTED Not Detected 06/02/2025 11:57 PM CERTIFIED NUTRITIONIST [facility] Upper Respiratory ENTIRE NASOPHARYNX / Unknown Collection / Unknown 06/02/2025 11:30 PM CERTIFIED NUTRITIONIST 06/02/2025 11:43 PM CERTIFIED NUTRITIONIST [facility] - 06/02/2025 11:57 PM CERTIFIED NUTRITIONIST Negative results do not rule out infection. If clinically indicated, consider PCR testing which is more sensitive than antigen testing. If PCR testing is desired, consult with your local laboratory as sample recollection may be required. Antonio Root MD MICROBIOLOGY - GENERAL O RDERABLES Final Result Performing Organization Address [facility] Phone Number [facility] [id number] [address] [place] [address] * (ABNORMAL) TROPONIN BASELINE, 5TH GEN (06/02/2025 11:28 PM CERTIFIED NUTRITIONIST) TROPONIN T, BASELINE 5TH GEN 35(H) <=15 ng/L 06/03/2025 12:00 AM CERTIFIED NUTRITIONIST [facility] Blood Collection / Unknown 06/02/2025 11:28 PM CERTIFIED NUTRITIONIST 06/02/2025 11:43 PM CERTIFIED NUTRITIONIST [facility] - 06/03/2025 12:00 AM CERTIFIED NUTRITIONIST Troponin elevated. Antonio Root MD CHEMISTRY ORDERABLES Fin al Result [facility] # [id number] [address] [place] [address] * LACTIC ACID (06/02/2025 11:28 PM CERTIFIED NUTRITIONIST) Pathologist [facility] LACTIC ACID 1.4 <=2.0 mmol/L 06/02/2025 11:56 PM [facility] Blood BLOOD SPECIMEN / Unknown Collection / Unknown 06/02/2025 11:28 PM CERTIFIED NUTRITIONIST 06/02/2025 11:43 PM CERTIFIED NUTRITIONIST Antonio Root MD CHEMISTRY ORDERABLES Fin al Result Performing Organization Address [facility]/ZIP Co de Phone Number [facility] # [id number] [address] [place] [address] * (ABNORMAL) CBC WITH DIFFERENTIAL (06/02/2025 11:28 PM CERTIFIED NUTRITIONIST) Pathologist [facility] WBC 7.8 4.2 - 9.1 K/uL 06/02/2025 11:50 PM [facility] RBC 4.01(L) 4.63 - 6.08 M/uL 06/02/2025 11:50 PM [facility] HEMOGLOBIN 10.7(L) 13.7 - 17.5 g/dL 06/02/2025 11:50 PM [facility] HEMATOCRIT 34.9(L) 40.1 - 51.0 % 06/02/2025 11:50 PM [facility] MCV 87.0 79.0 - 92.2 fL 06/02/2025 11:50 PM [facility] MCH 26.7 25.7 - 32.2 pg 06/02/2025 11:50 PM [facility] MCHC 30.7(L) 32.3 - 36.5 g/dL 06/02/2025 11:50 PM [facility] RDW 13.0 11.0 - 14.5 % 06/02/2025 11:50 PM [facility] RDW-STDEV 41.0 36.9 - 56.9 fL 06/02/2025 11:50 PM [facility] PLATELETS 278 130 - 400 K/uL 06/02/2025 11:50 PM [facility] MPV 10.0 10.0 - 14.8 fL 06/02/2025 11:50 PM [facility] NEUTROPHILS 62 34 - 68 % 06/02/2025 11:50 PM [facility] LYMPHOCYTES 16(L) 22 - 53 % 06/02/2025 11:50 PM [facility] MONOCYTES 13(H) 5 - 12 % 06/02/2025 11:50 PM [facility] EOSINOPHILS 6 1 - 7 % 06/02/2025 11:50 PM [facility] BASOPHILS 1 0 - 1 % 06/02/2025 11:50 PM [facility] IMMATURE GRANULOCYTES 1 % 06/02/2025 11:50 PM [facility] NEUTROPHIL ABSOLUTE 4.85 1.78 - 5.38 K/uL 06/02/2025 11:50 PM [facility] LYMPHOCYTE ABSOLUTE 1.27 1.20 - 3.40 K/uL 06/02/2025 11:50 PM [facility] MONOCYTE ABSOLUTE 1.03(H) 0.30 - 0.82 K/uL 06/02/2025 11:50 PM [facility] EOSINOPHIL ABSOLUTE 0.48 0.04 - 0.54 K/uL 06/02/2025 11:50 PM [facility] BASOPHILS ABSOLUTE 0.08 0.01 - 0.08 K/uL 06/02/2025 11:50 PM [facility] IMMATURE GRANULOCYTES ABSOLUTE 0.06 K/uL 06/02/2025 11:50 PM [facility] Blood Collection / Unknown 06/02/2025 11:28 PM CERTIFIED NUTRITIONIST 06/02/2025 11:43 PM CERTIFIED NUTRITIONIST us Antonio Root MD HEMATOLOGY ORDERABLES Fi nal Result [facility] # [id number] [address] [place] [address] * (ABNORMAL) BRAIN NATRIURETIC PEPTIDE, BNP OR PROBNP (06/02/2025 11:28 PM CERTIFIED NUTRITIONIST) PROBNP, N TERMINAL 130(H) 0 - 125 pg/mL 06/03/2025 12:00 AM [facility] Comment: INTERPRETIVE COMMENT based on diagnosis: Diagnostic [...] Blood Collection / Unknown 06/02/2025 11:28 PM CERTIFIED NUTRITIONIST 06/02/2025 11:43 PM CERTIFIED NUTRITIONIST Antonio Root MD CHEMISTRY ORDERABLES Fin al Result [facility] # [id number] [address] [place] [address] * COMPREHENSIVE METABOLIC PANEL (06/02/2025 11:28 PM CERTIFIED NUTRITIONIST) SODIUM 141 136 - 145 mmol/L 06/03/2025 12:00 AM [facility] POTASSIUM 3.9 3.5 - 5.1 mmol/L 06/03/2025 12:00 AM [facility] CHLORIDE 103 98 - 107 mmol/L 06/03/2025 12:00 AM [facility] CO2 29 22 - 29 mmol/L 06/03/2025 12:00 AM [facility] CALCIUM 9.4 8.8 - 10.2 mg/dL 06/03/2025 12:00 AM [facility] BUN 10 8 - 23 mg/dL 06/03/2025 12:00 AM [facility] CREATININE 0.99 0.67 - 1.17 mg/dL 06/03/2025 12:00 AM [facility] GLUCOSE 95 74 - 99 mg/dL 06/03/2025 12:00 AM [facility] TOTAL PROTEIN 6.7 6.6 - 8.7 g/dL 06/03/2025 12:00 AM [facility] ALBUMIN 4.0 3.5 - 5.2 g/dL 06/03/2025 12:00 AM [facility] BILIRUBIN TOTAL 0.2 0.0 - 1.2 mg/dL 06/03/2025 12:00 AM [facility] ALKALINE PHOSPHATASE 102 40 - 129 U/L 06/03/2025 12:00 AM [facility] AST 22 0 - 50 U/L 06/03/2025 12:00 AM [facility] ALT 12 0 - 50 U/L 06/03/2025 12:00 AM [facility] GFR >60 >=60 mL/min/1.7 3 sq meter 06/03/2025 12:00 AM [facility] Comment:eGFR calculated with 2020 CKD-EPI equation. Vegetarian diet, extremely high or low muscle mass, and may affect results. Cystatin C with Glomerular Filtration Rate is a suitable alternative for these patients. ANION GAP 9 5 - 20 mmol/L 06/03/2025 12:00 AM [facility] Blood Collection / Unknown 06/02/2025 11:28 PM CERTIFIED NUTRITIONIST 06/02/2025 11:43 PM CERTIFIED NUTRITIONIST us Antonio Root MD CHEMISTRY ORDERABLES Fin al Result [facility] CLIA # [id number] [address] [place] [address] from Last 3 Months Insurance MEDICAID [place] [employer] [place] [facility] [place] [employer] Advance Directives For more information, please contact: [phone] * Full Code (Latest Code Status on [...] Non-Invasive (i.e. BiPAP, CPAP): Yes Care Teams Recreation Establishment Manager Relationship Specialty Start Date End Date Ellie Walker MD [address] [facility] [place] [address] PCP - General Family Practice 09/06/24
--- OUTSIDE RECORDS SUMMARY | 2025-07-24 11:54 | XMS_ITS | Patient Health Record ---
Author Organization [facility] Address [address] [place] [address] Care Team Providers Care Furniture Restorer Name Role Phone Judith Lieberman APRN Primary Care Provider Unav ailable Angel Luis Sebastian Unavailable [phone] [place] [employer] Unavailable Unavailable Allergies No Known Allergies Results Component Value Reference Range Notes Schedule Confirmation Reviewed date:07/04/2025 03:47:36 PM Interpretation: Performing Lab: Notes/Report: CT Chest w/o Contrast zzzPET Skull Base to Mid [facility]--[id number] Reviewed date:08/14/2024 03:11:27 PM Interpretation: Performing Lab: Notes/Report: See Below For Report PET study was performed at [facility]. Read See Below For Report CT Chest w/o Contrast diagno stic-[id number] Reviewed date:01/15/2025 11:59:07 AM Interpretation: Performing Lab: Notes/Report: [email or web address]=[id number]&org=iSite zzzPET Skull Base to Mid [facility]-76815 Reviewed date:08/14/2024 01:05:01 PM Interpretation: Performing Lab: Notes/Report: [id number]&org=iSite Schedule Confirmation Reviewed date:01/14/2025 03:29:20 PM Interpretation: Performing Lab: Notes/Report: CT Chest w/o Contrast Schedule Confirmation Reviewed date:01/15/2025 11:59:07 AM Interpretation: Performing Lab: Notes/Report: CT Chest w/o Contrast CT Chest w/o Contrast diagno stic-62093 Reviewed date:01/16/2025 03:09:53 PM Interpretation: Performing Lab: Notes/Report: See Below For Report CT Chest w/o Contrast Diagnosis Description: Solitary pulmonary nodule Read See Below For Report Reason For Referral Reason Solitary Pulm Nodule : [place] - Scheduled Diagnosis 1 Solitary pulmonary n odule (R91.1) Referring Provider First Name Tawanda early Referring Provider Last Name CO Referring Provider [facility] Referred Organization [facility] Referred Provider Angel Luis Sebastian Referred Address [address] [place] [address] [address] [place], [place],[address], Referred Provider Specialty Pulmonary Di seases Referral [...] Name Tawanda early Referring Provider Last Name CO Referring Provider [facility] Referred Organization [facility] Referred Provider Angel Luis Sebastian Referred Address [address] [place] [address] [address] [place], [place],[address], Referred Provider Specialty Pulmonary Ramya corleyes Referral [...] W/U Status Risk Notes Problem Tobacco user (114763227) Nicotine dependence, cigarettes, uncomplicated (F17.210) Active confirmed Problem Tobacco user (651503934) Nicotine dependence, cigarettes, in remission (F17.211) Active confirmed Problem Solitary pulmonary nodule (546094898) Solitary pulmonary nodule (R91.1) Active confirmed Problem Radiology result abnormal (225991057) Abnormal chest CT (R93.89) Active confirmed Problem Chronic obstructive pulmonary disease (51327139) Stage 3 severe COPD by GOLD classification (J44.9) Active confirmed Problem Chronic respiratory failure (98433514) Chronic hypoxic respiratory failure (J96.11) Active confirmed [...] 01/15/2025 Encounters Encounter Location Date Provider Diagnosis [facility] [address] [place] [address] [place] [address] 01/15/2025 Angel Luisaracelis Ibarraoscar Solitary pulmonary nodule R91.1 ; Stage 3 severe COPD by GOLD classification J44.9 ; Chronic hypoxic respiratory failure J96.11 and Nicotine dependence, cigarettes, in remission F17.211 [facility] [address] [place] [address] 09/10/2024 Angel Luis Sebastian Solitary pulmonary nodule R91.1 ; Stage 3 severe COPD by GOLD classification J44.9 ; Chronic hypoxic respiratory failure J96.11 and Nicotine dependence, cigarettes, in remission F17.211 [facility] [address] [place] [address] 07/17/2025 [facility] [address] [place] [address] [place] [address] 01/08/2025 [facility] [address] [place] [address] 12/05/2024 [facility] [address] [place] [address] [place] [address] 11/22/2024 [facility] [address] [place] [address] 09/03/2024 [facility] [address] [place] [address] [place] [address] 08/28/2024 [facility] [address] [place] [address] 08/20/2024 [facility] [address] [place] [address] [place] [address] 08/15/2024 [facility] [address] [place] [address] [place] [address] 07/30/2024 [facility] [address] [place] [address] [place] [address] 07/27/2024 Angel Luis Sebastian Assessments Encounter Date [...] to maintain a saturation between 88-92% 01/15/2025 Chronic hypoxic respiratory failure (ICD-10 - [...] PET CT Skull Base to Mid Thigh ([facility]) 07/03/2024 Future Test Test Name Order Date CT Chest w/o Contrast diagnostic-[id number] 09/03/2024 Next Appt Details Provider Name:Angel Luis Sebastian, 10/16/2025 02:10:00 PM, [address] [place] [address] [place], [address], Insurance Providers Payer Name Payer Address Payer Phone Subscriber Number Group Number Insured Name Patient Relationship to Insured Coverage Start Date Coverage End Date [employer] [address] [place] [address] [id number] [employer] Self - patient is the insured Medical (General) History Medical History History ICD Code Measles,Chicken Pox Pneumonioa Arthritis Venereal Disease Migraine Headaches HTN Asthma Stroke Surgical History Surgery Date(Month/Year) Fluid pocket cut off back Appendectomy Hospitalization History Reason Date(Month/Year) Multiple
--- NOTE | 2025-07-24 12:00 | ECG_ITS ---
[facility] 2025-[facility]24 Pat Name: Naren Pritchard Department: Room: Gender: Male Head Operator: : [id number] Requested By: Yari Engel Order Number: [id number] Aaron MD: MENDEZ HEREDIA Measurements Intervals [place] Rate: 123 P: 86 DE: 179 QRS: 91 QRSD: 80 T: 71 QT: 301 QTc: 431 Interpretive Statements SINUS TACHYCARDIA BORDERLINE RIGHT AXIS DEVIATION [QRS AXIS > 90] ABNORMAL RHYTHM ECG INTERPRETATION BASED ON A DEFAULT AGE OF 40 YEARS Compared to ECG 07/19/2025 05:13:43 Sinus rhythm no longer present ST (T wave) deviation no longer present Electronically Signed On 07-24-2025 20:15:05 CUT IN STATION OPERATOR by MENDEZ HEREDIA [email or web address]
--- NOTE | 2025-07-24 12:40 | W.ED.SOB ---
HPI - SOB/Dyspnea General: Chief Complaint: Shortness of Breath/Dyspnea Stated Complaint: SOB Time Seen by Provider: 07/24/25 12:40 History of Present Illness: HPI Narrative: 69-year-old man with a history of COPD, chronic hypoxemic respiratory failure on 2 to 3 L nasal cannula at all times, GERD, depression, tobacco dependence in remission for 2 years, who presents to the emergency room and shortness of breath. This has been present since last night. He has some chest tightness with breathing. No altered mental status. No focal motor deficits. His lungs are very tight and he is somewhat tachypneic with some mild increased work of breathing on presentation. Related Data Home Medications ?Medication ?Instructions ?Recorded ?Confirmed aspirin 81 mg tablet,delayed 81 mg PO DAILY 11/27/19 07/09/25 release amlodipine 5 mg tablet 5 mg PO DAILY 11/23/24 07/09/25 guaifenesin 400 mg tablet 400 mg PO TID 11/23/24 07/09/25 melatonin 5 mg tablet 10 mg PO DAILY 11/23/24 07/09/25 omeprazole 20 mg tablet,delayed 20 mg PO BID 11/23/24 07/09/25 release cholecalciferol (vitamin D3) 25 25 mcg PO DAILY 01/27/25 07/09/25 mcg (1,000 unit) capsule (Vitamin D3) docusate sodium 100 mg capsule 100 mg PO BID PRN Constipation 01/27/25 07/09/25 ipratropium 0.5 mg-albuterol 3 mg 3 ml inhalation QID PRN Shortness 01/27/25 07/09/25 (2.5 mg base)/3 mL nebulization Of Breath Or Wheezing soln albuterol sulfate 90 mcg/actuation 2 inh inhalation QID PRN shortness 07/09/25 07/09/25 aerosol inhaler of breath or wheezing food supplemt, lactose-reduced 1 ea PO QID 07/09/25 07/09/25 ipratropium 20 mcg-albuterol 100 1 puff inhalation QID 07/09/25 07/09/25 mcg/actuation mist for inhalation (Combivent Respimat) levocarnitine 500 mg capsule 500 mg PO QAM 07/09/25 07/09/25 omega 0-pch-hiz-fish oil 1,000 mg 1 cap PO BID 07/09/25 07/09/25 (120 mg-180 mg) capsule (Fish Oil) polyethylene glycol 3350 17 17 g PO DAILY 07/09/25 07/09/25 gram/dose oral powder (Miralax) tamsulosin 0.4 mg capsule 0.4 mg PO QPM 07/09/25 07/09/25 trazodone 100 mg tablet 200 mg PO BEDTIME 07/09/25 07/09/25 Previous Rx's ?Medication ?Instructions ?Recorded isosorbide mononitrate 30 mg 30 mg PO DAILY #90 tabs 05/23/24 tablet,extended release 24 hr metoprolol succinate 25 mg 12.5 mg (1/2 x 25 mg) PO DAILY #45 11/16/24 tablet,extended release 24 hr tabs budesonide 160 mcg-glycopyr 9 2 inh inhalation BID #10.7 grams 11/25/24 mcg-formot 4.8 mcg/actuation HFA inhaler (Breztri [employer]) dextromethorphan-guaifenesin 10 10 ml PO Q4H #237 mL 01/29/25 mg-100 mg/5 mL oral syrup nitroglycerin 0.4 mg sublingual 0.4 mg sublingual Q5M PRN chest 04/18/25 tablet pain #25 tabs Allergies Allergy/AdvReac Type Severity Reaction Status Date / Time No Known Allergies Allergy Verified 07/24/25 12:05 Review of Systems Narrative: Constitutional symptoms: Negative except as documented in HPI. Skin symptoms: Negative except as documented in HPI. Eye symptoms: Negative except as documented in HPI. ENMT symptoms: Negative except as documented in HPI. Respiratory symptoms: Negative except as documented in HPI. Cardiovascular symptoms: Negative except as documented in HPI. Gastrointestinal symptoms: Negative except as documented in HPI. Genitourinary symptoms: Negative except as documented in HPI. Musculoskeletal symptoms: Negative except as documented in HPI. Neurologic symptoms: Negative except as documented in HPI. Psychiatric symptoms: Negative except as documented in HPI. Endocrine symptoms: Negative except as documented in HPI. PFSH ED PFSH: Medical History (Updated 07/24/25 @ 16:00 by Yari Chester MD) Weight loss, unintentional Essential hypertension History of migraine headaches Vitamin D deficiency Hepatitis C Treatment status unknown Hx of colonic polyps Sessile on colonoscopy 02/16 Depression GERD (gastroesophageal reflux disease) Peptic ulcer disease Gastric ulcer on EGD 02/16 COPD (chronic obstructive pulmonary disease) Surgical History History of colonoscopy with polypectomy 2019 Status post excision of lipoma (~01/2019) Hx of appendectomy Family History Father Tuberculosis Denies family history of Diabetes Cancer Social History (Updated 07/09/25 @ 00:09 by Александр Proctor MD) Smoking and tobacco/nicotine status: former use of tobacco/nicotine Quit status (tobacco/nicotine): has quit using Year quit tobacco: 2023 Former quit date comment: Was hospitalized for COPD went home and just never smoked again Second hand smoke exposure: No Alcohol intake: current Alcohol intake frequency: holidays/special occasions only Substance/Drug Use: former Former substance use details: Used to use meth Additional social history: 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 Alcohol is none illicits none tobacco now also none after smoking 1 to 1-1/2 packs/day for 42 years lives with his and his nephew. 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 Skin: Warm, dry. Head: Normocephalic, atraumatic. Neck: Supple, trachea midline. Eye: Extraocular movements are intact. Ears, nose, mouth and throat: Oral mucosa moist. Cardiovascular: Regular, Normal peripheral perfusion. Respiratory: coarse, scattered wheeze, moderate increased wob. tachypnea, prolonged expiratory phase. breath sounds are equal, Symmetrical chest wall expansion. Gastrointestinal: Soft, Nontender, Non distended, Musculoskeletal: Normal ROM, no deformity. Neurological: Alert and oriented, No focal neurological deficit observed. Psychiatric: Cooperative, appropriate mood & affect. Course Vital Signs: Vital signs: Vital Signs Temperature 98.1 F 07/24/25 15:28 Pulse Rate 118 H 07/24/25 15:28 Respiratory Rate 22 H 07/24/25 15:28 Blood Pressure 111/55 07/24/25 15:28 Pulse Oximetry 94 07/24/25 15:28 Oxygen Delivery Me thod Nasal Cannula 07/24/25 12:59 Oxygen Flow Rate 3 07/24/25 12:59 MDM - SOB/Dyspnea Medical Decision Making Medical decision making Patient's reason for coming to the emergency room: Shortness of breath Social determinants: Retired. I reviewed the patient's medical record. 69-year-old man with a history of COPD, chronic hypoxemic respiratory failure on 2 to 3 L nasal cannula at all times, GERD, depression, tobacco dependence in remission for 2 years, I reviewed the patient's current home meds Patient is not anticoagulated according to his med list. Alternate historians: None Differential diagnosis for patient with shortness of breath includes but is not limited to and based on the above HPI, review of systems and physical exam: Pneumonia. Bronchitis. Asthma or COPD with acute exacerbation. Acute coronary syndrome / RI. Pulmonary embolism. Anxiety. Congestive heart failure. Viral infections including influenza and Covid-19. Atrial fibrillation. Anxiety. Pleural effusion. Pneumothorax. Orders placed to evaluate differential diagnosis based on the above differential, HPI and physical exam EKG: Time 1200. Rate 123. Sinus tachycardia, No ST-T changes, no ectopy, normal IL & QRS intervals, This was reviewed and interpreted by myself the ER physician at 1205. Repeat EKG: Time 1439. Rate 116. Sinus tachycardia, No ST-T changes, no ectopy, normal IL & QRS intervals, This was reviewed and interpreted by myself the ER physician at 1444 Chest x-ray: Hyperexpansion no acute process. No infiltrate. No pneumothorax. This was reviewed and interpreted by myself the emergency room physician. I also reviewed the radiology report. Lab Review: Laboratory results were reviewed and interpreted by myself the emergency room physician. Mild leukocytosis with a white count of 12.8. No anemia. No renal failure Assessment of risk: Level of risk: Moderate to high risk patient Hospitalization considerations: patient is being admitted for increased work of breathing. He does not have increased oxygen requirements but even after multiple breathing treatments he is still working hard to breathe Reexamination: Patient still very tight with some scattered wheeze. Requiring 3 L nasal cannula which is his home requirement. Some increased work of breathing. Consultation: I spoke with the hospitalist on-call who agrees to admission. Dr. Dejesus Assessment and plan: COPD with acute exacerbation Chronic hypoxemic respiratory failure ?IV Solu-Medrol, IV doxycycline, multiple updrafts. -I discussed the patient with the hospitalist on-call who is admitting the patient. - Discussed findings and plan with patient. Answered any questions. - All laboratory values were reviewed and interpreted personally by myself, the ER physician - All imaging was reviewed and interpreted personally by myself, the ER physician. - Evaluation and treatment of this problem were appropriate in the emergency setting Lab Data 07/24/25 13:03 07/24/25 13:03 Labs/Radiology: Radiology Impressions Chest X-Ray 07/24/25 12:41 Impression: Hyperinflation. Laboratory Results WBC 12.85 10^3/uL (3.29-11.43) H 07/24/25 13:03 RBC 4.48 10^6/uL (3.85-5.65) 07/24/25 13:03 Hgb 11.50 g/dL (11.27-16.99) 07/24/25 13:03 Hct 39.7 % (37-53) 07/24/25 13:03 MCV 88.6 fl (82-101) 07/24/25 13:03 MCH 25.7 pg (27-33) L 07/24/25 13:03 MCHC 29.0 g/dL (30-55) L 07/24/25 13:03 RDW 12.7 % (12.1-15.1) 07/24/25 13:03 Plt Count 463 10^3/cmm (157-399) H 07/24/25 13:03 MPV 9.1 fL (7.4-10.4) 07/24/25 13:03 Neut % (Auto) 86.4 % 07/24/25 13:03 Lymph % (Auto) 4.5 % 07/24/25 13:03 Eaton % (Auto) 5.8 % 07/24/25 13:03 Eos % (Auto) 2.4 % 07/24/25 13:03 Baso % (Auto) 0.6 % 07/24/25 13:03 Neut # (Auto) 11.10 10^3/uL (1.8-7.7) H 07/24/25 13:03 Lymph # (Auto) 0.6 10^3/uL (0.8-4.8) L 07/24/25 13:03 Eaton # (Auto) 0.7 10^3/uL (0.2-0.9) 07/24/25 13:03 Eos # (Auto) 0.3 10^3/uL (0.0-0.8) 07/24/25 13:03 Baso # (Auto) 0.1 10^3/uL (0.0-0.1) 07/24/25 13:03 Nucleated RBC % (auto) 0 % 07/24/25 13:03 Nucleated RBCs # 0.0 /100WBC 07/24/25 13:03 Specimen Type Arterial 07/24/25 12:41 Sample Site Radial, right 07/24/25 12:41 ABG pH 7.43 (7.35-7.45) 07/24/25 12:41 ABG pCO2 50.1 mmHg (35-45) H 07/24/25 12:41 ABG pO2 61.3 mmHg (80.0-100.0) L 07/24/25 12:41 ABG HCO3 33.1 mmol/L (22-26) H 07/24/25 12:41 ABG O2 Saturation 92.2 07/24/25 12:41 ABG Base Excess 7.6 mmol/L (-2.0-2.0) H 07/24/25 12:41 Italo Test Pos 07/24/25 12:41 A-a O2 Gradient 3.6 mmHg (5-10) L 07/24/25 12:41 Hematocrit 35.2 % (42-52) L 07/24/25 12:41 Hgb O2 Saturation 90.4 % (95-100) L 07/24/25 12:41 Carboxyhemoglobin 0.7 %THgb (0.4-20.1) 07/24/25 12:41 Methemoglobin 1.3 % (0.4-1.5) 07/24/25 12:41 Total Hemoglobin 11.5 g/dL (14-18) L 07/24/25 12:41 Sodium 138.0 mmol/L (131-143) 07/24/25 12:41 Potassium 4.0 mmol/L (3.5-5.0) 07/24/25 12:41 Glucose 128.0 mg/dL (70-115) H 07/24/25 12:41 Ionized Calcium 1.2 mmol/L (1.1-1.4) 07/24/25 12:41 O2 Delivery Device Nc 07/24/25 12:41 O2 Liters/Min 3.0 % 07/24/25 12:41 Order Editor ID Walci 07/24/25 12:41 Sodium 139 mmol/L (136-145) 07/24/25 13:03 Potassium 4.5 mmol/L (3.5-5.1) 07/24/25 13:03 Chloride 96 mmol/L (98-107) L 07/24/25 13:03 Carbon Dioxide 30 mmol/L (22-29) H 07/24/25 13:03 Anion Gap 17.5 (5-19) 07/24/25 13:03 BUN 8 mg/dL (8-23) 07/24/25 13:03 Creatinine 0.8 mg/dL (0.7-1.2) 07/24/25 13:03 GFR Calculation 96.1 mL/min (90-130) 07/24/25 13:03 Glucose 107 mg/dL (65-115) 07/24/25 13:03 Calculated Osmolality 287 mOsm/kg (285-295) 07/24/25 13:03 Lactic Acid 1.6 mmol/L (0.5-2.2) 07/24/25 13:03 Calcium 9.8 mg/dL (8.5-10.5) 07/24/25 13:03 Total Bilirubin 0.2 mg/dL (0.15-1.2) 07/24/25 13:03 AST 13 U/L (0-40) 07/24/25 13:03 ALT 10 U/L (0-41) 07/24/25 13:03 Alkaline Phosphatase 95 U/L (40-130) 07/24/25 13:03 Troponin T Baseline 28 ng/L (0-15) H 07/24/25 13:03 Troponin T 60 Minute 24.60 ng/L (0-15) H 07/24/25 13:50 Delta Troponin T -3.40 ABS# (0-10) L 07/24/25 13:50 C-Reactive Protein 123.8 mg/L (0.0-4.9) H 07/24/25 13:03 NT-Pro-B Natriuret Pep 162 pg/mL (0-125) H 07/24/25 13:03 Total Protein 6.8 g/dL (6.6-8.7) 07/24/25 13:03 Albumin 3.9 g/dL (3.5-5.2) 07/24/25 13:03 Globulin 2.9 g/dL (1.3-4.6) 07/24/25 13:03 Influenza A (PCR) Negative (Negative) 07/24/25 13:14 Influenza Type B (PCR) Negative (Negative) 07/24/25 13:14 RSV (PCR) Negative (Negative) 07/24/25 13:14 SARS-CoV-2 (PCR) Negative (Negative) 07/24/25 13:14 All radiology interpretation(s) finalized by discharge Discharge Plan Discharge Patient Disposition: Admitted As Inpatient Clinical Impression: COPD with acute exacerbation, Chronic hypoxic respiratory failure, on home oxygen therapy Condition: Stable Coding Level of Care Code ED Lithographer Helper for Oli Moise
--- NOTE | 2025-07-24 12:41 | XR_ITS ---
WS: [id number] Portable AP upright chest, 07/24/2025 Clinical Data: Shortness of breath Comparison: Portable chest, 07/18/2025 Findings: No nodules, masses or effusions are seen. The heart is normal. The pulmonary vascularity is not increased. No pneumonia or pneumothorax is seen. The diaphragms are flattened. There are monitor leads on the chest wall. XR/XR chest 1V portable [id number] Impression: Hyperinflation.
[2025-07-24 12:52] LABS: ABG PCO2 50.1 mmHg (35-45); ABG PH Result 7.43 (7.35-7.45); Alveolar-Arterial Oxygen Gradi 3.6 mmHg (5-10); Arterial Blood Gas Hematocrit 35.2 % (42-52); Blood Gas Allen Test Pos; Blood Gas LPM 3.0 %; Blood Gas Operator Identificat WALCI; Blood Gas Sample Site Radial, right; Blood Gas Sample Type Arterial; Carboxyhemoglobin 0.7 %THgb (0.4-20.1); Glucose Level-ABG 128.0 mg/dL (70-115); HCO3 ABG 33.1 mmol/L (22-26); Ionized Calcium Level - ABG 1.2 mmol/L (1.1-1.4); Methemoglobin 1.3 % (0.4-1.5); Oxygen Saturation ABG 92.2; PO2 ABG 61.3 mmHg (80.0-100.0); Potassium Level - ABG 4.0 mmol/L (3.5-5.0); Sodium Level - ABG 138.0 mmol/L (131-143)
[2025-07-24 13:12] LABS: Hematocrit 39.7 % (37-53); Hemoglobin 11.50 g/dL (11.27-16.99); Mean Corpuscular HGB Conc 29.0 g/dL (30-55); Mean Corpuscular Hemoglobin 25.7 pg (27-33); Mean Corpuscular Volume 88.6 fl (82-101); Nucleated Red Blood Cells % 0 %; Platelet Count 463 10^3/cmm (157-399); Red Blood Count 4.48 10^6/uL (3.85-5.65); White Blood Count 12.85 10^3/uL (3.29-11.43)
[2025-07-24] MEDS: doxycycline 100 MG in sodium chloride 0.9% (plus) 100 ML IV (13:24)
[2025-07-24] MEDS: methylPREDNISolone sod succ 125 mg/2 mL INJ IVP (13:25)
[2025-07-24 13:33] LABS: Lactic Sepsis W/Reflex 1.6 mmol/L (0.5-2.2)
[2025-07-24 13:34] LABS: Troponin(5th) Baseline 28 ng/L (0-15)
--- NOTE | 2025-07-24 13:42 | ECG_ITS ---
[facility] Test Date: 2025-07-24 Pat Name: Naren Pritchard Department: Room: Gender: Male Product Applications Scientist: : 1955 Requested By: Yari Engel Order Number: [id number] Aaron MD: MENDEZ HEREDIA Measurements Intervals [place] Rate: 116 P: 76 AK: 195 QRS: 81 QRSD: 81 T: 70 QT: 306 QTc: 425 Interpretive Statements SINUS TACHYCARDIA POSSIBLE LEFT ATRIAL ENLARGEMENT [-0.1mV P-WAVE IN V1/V2] ABNORMAL RHYTHM ECG Compared to ECG 07/24/2025 12:00:17 No significant changes Electronically Signed On 07-24-2025 20:34:07 CLINICAL STAFF PHARMACIST by MENDEZ HEREDIA [id number] [id number]
[2025-07-24 13:51] LABS: Alanine Aminotransferase 10 U/L (0-41); Albumin Level 3.9 g/dL (3.5-5.2); Alkaline Phosphatase 95 U/L (40-130); Anion Gap 17.5 (5-19); Aspartate Amino Transferase 13 U/L (0-40); Blood Urea Nitrogen 8 mg/dL (8-23); Calcium 9.8 mg/dL (8.5-10.5); Carbon Dioxide 30 mmol/L (22-29); Chloride 96 mmol/L (98-107); Globulin 2.9 g/dL (1.3-4.6); Glucose 107 mg/dL (65-115); NT Pro B Type Natriuretic Pept 162 pg/mL (0-125); Osmolality Calculated 287 mOsm/kg (285-295); Potassium 4.5 mmol/L (3.5-5.1); Sodium 139 mmol/L (136-145); Total Protein 6.8 g/dL (6.6-8.7)
[2025-07-24 14:19] LABS: Respiratory Syncytial Virus Ce NEGATIVE (Negative); SARS-CoV-2 PCR NEGATIVE (Negative)
--- NOTE | 2025-07-24 15:43 | PM.HP ---
Providers/Chief Complaint Admitting Physician: Annemarie Bergman APRN, Dr. Rafa Hawkins MD Primary Care Provider: Ellie Irene MD Chief Complaint: SOB History of Present Illness Naren Pritchard is a 69 year old male with prior medical history of HTN, [place], CAD, GERD, PUD, COPD, LRPD, hep C, depression, chest pain, history of nicotine dependence, pulmonary nodules, protein calorie malnutrition with cachexia, atypical pneumonia, hypersomnia, chronic migraine, elevated BNP, asthma, and dysphagia presenting with complaints of shortness of breath.? Patient was just admitted to this ED 07/08/2025 for chest pain and productive cough with a diagnosis of atypical pneumonia.? He was seen again on 07/19/2025 secondary to recurrent COPD exacerbation and discharged same day.? On this current episode, he had an increase of shortness of breath last night that has become progressively worse.? He came [facility] ED via EMS. He lives at home with his . In the ED, BP 110/59, HR 118, RR 18, T98.6, O2 95% nasal cannula 3L.? pH 7.43, pCO2 50.1, pO2 61.3, HCO3 33.1.? Troponin 28 > 24.6.? CRP 123.8.? BNP 162.? COVID/flu/RSV negative. CXR; hyperinflation, see full results. Will admit to the hospitalist service for further evaluation and treatment. Review of Systems General: Reports: 10 or more systems reviewed and unremarkable except in HPI and below Const: Denies: fever(s) or chills Eyes: Denies: change in vision or eye discharge Card: Reports: chest pain Resp: Reports: dyspnea and non-productive cough GI: Denies: abdominal pain or diarrhea : Denies: difficulty urinating Musc: Denies: neck pain or back pain Skin/Breast: Denies: rash or jaundice Neuro: Denies: headache(s), numbness in extremities or weakness in extremities Dio/Lymph: Denies: easy bruising or easy bleeding Medications/Allergies Home Medications ?Medication ?Instructions ?Recorded ?Confirmed ?Last Taken ?Type aspirin 81 mg tablet,delayed 81 mg PO DAILY 11/27/19 07/09/25 11/22/24 History release isosorbide mononitrate 30 mg 30 mg PO DAILY #90 tabs 05/23/24 07/09/25 11/22/24 Rx tablet,extended release 24 hr metoprolol succinate 25 mg 12.5 mg (1/2 x 25 mg) PO DAILY #45 11/16/24 07/09/25 11/22/24 Rx tablet,extended release 24 hr tabs amlodipine 5 mg tablet 5 mg PO DAILY 11/23/24 07/09/25 Unknown History guaifenesin 400 mg tablet 400 mg PO TID 11/23/24 07/09/25 Unknown History melatonin 5 mg tablet 10 mg PO DAILY 11/23/24 07/09/25 Unknown History omeprazole 20 mg tablet,delayed 20 mg PO BID 11/23/24 07/09/25 Unknown History release budesonide 160 mcg-glycopyr 9 2 inh inhalation BID #10.7 grams 11/25/24 07/09/25 Unknown Rx mcg-formot 4.8 mcg/actuation HFA inhaler ([employer]tri [employer]) cholecalciferol (vitamin D3) 25 25 mcg PO DAILY 01/27/25 07/09/25 Unknown History mcg (1,000 unit) capsule (Vitamin D3) docusate sodium 100 mg capsule 100 mg PO BID PRN Constipation 01/27/25 07/09/25 Unknown History ipratropium 0.5 mg-albuterol 3 mg 3 ml inhalation QID PRN Shortness 01/27/25 07/09/25 Unknown History (2.5 mg base)/3 mL nebulization Of Breath Or Wheezing soln dextromethorphan-guaifenesin 10 10 ml PO Q4H #237 mL 01/29/25 07/09/25 Unknown Rx mg-100 mg/5 mL oral syrup nitroglycerin 0.4 mg sublingual 0.4 mg sublingual Q5M PRN chest 04/18/25 07/09/25 Unknown Rx tablet pain #25 tabs albuterol sulfate 90 mcg/actuation 2 inh inhalation QID PRN shortness 07/09/25 07/09/25 Unknown History aerosol inhaler of breath or wheezing food supplemt, lactose-reduced 1 ea PO QID 07/09/25 07/09/25 Unknown History ipratropium 20 mcg-albuterol 100 1 puff inhalation QID 07/09/25 07/09/25 Unknown History mcg/actuation mist for inhalation (Combivent Respimat) levocarnitine 500 mg capsule 500 mg PO QAM 07/09/25 07/09/25 Unknown History omega 3-jge-sfa-fish oil 1,000 mg 1 cap PO BID 07/09/25 07/09/25 Unknown History (120 mg-180 mg) capsule (Fish Oil) polyethylene glycol 3350 17 17 g PO DAILY 07/09/25 07/09/25 Unknown History gram/dose oral powder (Miralax) tamsulosin 0.4 mg capsule 0.4 mg PO QPM 07/09/25 07/09/25 Unknown History trazodone 100 mg tablet 200 mg PO BEDTIME 07/09/25 07/09/25 Unknown History Allergies Allergy/AdvReac Type Severity Reaction Status Date / Time No Known Allergies Allergy Verified 07/24/25 12:05 PFSH Acute PFSH: Medical History (Updated 07/24/25 @ 16:00 by Yari Chester MD) Weight loss, unintentional Essential hypertension History of migraine headaches Vitamin D deficiency Hepatitis C Treatment status unknown Hx of colonic polyps Sessile on colonoscopy 02/16 Depression GERD (gastroesophageal reflux disease) Peptic ulcer disease Gastric ulcer on EGD 02/16 COPD (chronic obstructive pulmonary disease) Surgical History History of colonoscopy with polypectomy 2019 Status post excision of lipoma (~01/2019) Hx of appendectomy Family History Father Tuberculosis Denies family history of Diabetes Cancer Social History (Updated 07/09/25 @ 00:09 by Александр Proctor MD) Smoking and tobacco/nicotine status: former use of tobacco/nicotine Quit status (tobacco/nicotine): has quit using Year quit tobacco: 2023 Former quit date comment: Was hospitalized for COPD went home and just never smoked again Second hand smoke exposure: No Alcohol intake: current Alcohol intake frequency: holidays/special occasions only Substance/Drug Use: former 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 Alcohol is none illicits none tobacco now also none after smoking 1 to 1-1/2 packs/day for 42 years lives with his and his nephew. 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 Pets and animals: Yes Do you think of yourself as: Straight/Heterosexual Current gender identity: Male Vitals/I&O/Wt Last Vital Signs Temp 98.1 F 07/24/25 15:28 Pulse 118 H 07/24/25 15:28 Resp 22 H 07/24/25 15:28 BP 111/55 07/24/25 15:28 Pulse Ox 94 07/24/25 15:28 O2 Del Method Nasal Cannula 07/24/25 12:59 O2 Flow Rate 3 07/24/25 12:59 Weight last 48 hrs Weight 50.802 kg Physical Exam Narrative: General: No apparent distress HENMT: normoceophalic Muskuloskeletal: Full ROM Respiratory: Normal respiratory effort, clear to auscultation bilaterally throughout all lung garcia, no use of accessory muscles Cardio: No JVD, regular rate, regular rhythm, S1 S2 normal, no murmurs, peripheral pulses 2+ radial palpated bilaterally Extremities: Full ROM, normal, normal capillary refill, no cyanosis or edema Neuro: Alert and oriented x4, no focal motor deficits Psych: Affect normal, denies suicidal ideation, mental status grossly normal Skin: No rashes or lesions noted, no wounds Data 07/24/25 13:03 07/24/25 13:03 Micro: Microbiology 07/24/25 13:19 Blood Culture - Preliminary Blood SPECIMEN COLLECTED 07/24/25 13:03 Blood Culture - Preliminary Blood SPECIMEN COLLECTED A&P Assessment and plan 1. COPD with acute exacerbation: WBC 12.85 Normally requiring 2 L O2 at home CXR; hyperinflation, see full results COVID/flu/RSV negative Blood cultures pending Doxycycline Prednisone p.o. 40 mg Breathing treatments RT 2. Chronic hypoxemic respiratory failure: pH 7.43, pCO2 50.1, pO2 61.3, HCO3 33.1 CRP 123.8 Supplemental O2 to keep saturations greater than 92% Pulse oximetry 3. CAD (coronary artery disease): 07/09/2025 echocardiogram; EF 61%, normal left ventricle size, systolic function and wall thickness, normal right ventricular size and systolic function, no significant valvular abnormalities Troponin 28 > 24.6 BNP 162 EKG; ST, rate 123, no ST changes, ectopy, normal VA and QRS interval Telemetry 4. History of nicotine dependence: Used to smoke 1.5 packs/day X40 2 years Quit in 2023 PDMP PDMP Reviewed: Not Reviewed Attestations Medical Necessity Statement*: Patient not expected to cross 2 midnights. Patient to be treated for COPD exacerbation with chronic hypoxemic respiratory failure. Diagnoses COPD with acute exacerbation J44.1 Chronic hypoxemic respiratory failure J96.11 CAD (coronary artery disease) I25.10 History of nicotine dependence Z87.891
[2025-07-24] MEDS: pantoprazole 40 mg SDV IVP (16:20)
[2025-07-24 16:41] LABS: Magnesium 1.6 mg/dL (1.7-2.3)
--- NOTE | 2025-07-24 18:01 | PC.NURSE ---
Patient updated. Awaiting room assignment. Given sandwich
[2025-07-24 19:16] LABS: Troponin 5 6HR 19.72 ng/L (0-15)
--- NOTE | 2025-07-24 19:22 | ECG_ITS ---
[facility] Date: 2025-07-24 Pat Name: Naren Pritchard Department: Room: Gender: Male Proposal Specialist: : [id number] Requested By: Yari Engel Order Number: [id number] Reading MD: MENDEZ HEREDIA Measurements Intervals [place] Rate: 80 P: 77 AK: 177 QRS: 86 QRSD: 85 T: 81 QT: 355 QTc: 411 Interpretive Statements SINUS RHYTHM early repolarization Compared to ECG 07/24/2025 14:39:06 Sinus tachycardia no longer present Electronically Signed On 07-24-2025 20:32:46 APPLICATION COORDINATOR by MENDEZ HEREDIA [id number] [id number]
[2025-07-24 19:40] LABS: Troponin 5 6HR Delta -8.28 ng/L (0-12)
[2025-07-25] VITALS (11 sets, daily range): BP systolic 110–128; BP diastolic 60–70; PULSE 39–92; RESP 15–19; TEMP 36.4–37; O2SAT 96–98
[2025-07-25] MEDS: doxycycline 100 MG in sodium chloride 0.9% (plus) 100 ML IV ×2 (01:00→13:00)
--- NOTE | 2025-07-25 04:09 | ECG_ITS ---
[facility]: 2025-07-25 Pat Name: Naren Pritchard Department: Room: 264 Gender: Male Union Contract Representative: : 1955 Requested By: Bud Tom Order Number: [id number] Reading MD: MENDEZ HEREDIA Measurements Intervals [place] Rate: 88 P: 78 MO: 173 QRS: 79 QRSD: 84 T: 75 QT: 342 QTc: 415 Interpretive Statements SINUS RHYTHM Compared to ECG 07/24/2025 19:22:30 Early repolarization no longer present Electronically Signed On 07-28-2025 23:11:47 DIP PAINTER by MENDEZ HEREDIA [id number]
[2025-07-25] MEDS: lactobacillus 1 Tablet 1 TAB PO (04:26)
[2025-07-25] MEDS: metoprolol succinate ER (24 HR) 25 mg Tablet 12.5 MG PO (04:28)
[2025-07-25 05:32] LABS: Hematocrit 33.5 % (37-53); Hemoglobin 10.10 g/dL (11.27-16.99); Mean Corpuscular HGB Conc 30.1 g/dL (30-55); Mean Corpuscular Hemoglobin 26.2 pg (27-33); Mean Corpuscular Volume 86.8 fl (82-101); Nucleated Red Blood Cells % 0 %; Platelet Count 375 10^3/cmm (157-399); Red Blood Count 3.86 10^6/uL (3.85-5.65); White Blood Count 10.37 10^3/uL (3.29-11.43)
[2025-07-25 06:00] LABS: Alanine Aminotransferase 8 U/L (0-41); Albumin Level 3.2 g/dL (3.5-5.2); Alkaline Phosphatase 75 U/L (40-130); Anion Gap 9.3 (5-19); Aspartate Amino Transferase 8 U/L (0-40); Blood Urea Nitrogen 10 mg/dL (8-23); Calcium 9.8 mg/dL (8.5-10.5); Carbon Dioxide 35 mmol/L (22-29); Chloride 101 mmol/L (98-107); Globulin 3.3 g/dL (1.3-4.6); Glucose 205 mg/dL (65-115); Osmolality Calculated 297 mOsm/kg (285-295); Potassium 4.3 mmol/L (3.5-5.1); Sodium 141 mmol/L (136-145); Total Protein 6.5 g/dL (6.6-8.7)
--- OUTSIDE RECORDS SUMMARY | 2025-07-25 06:55 | XMS_ITS | Patient Health Record ---
Author Organization [facility] Address [address] [place] [address] Care Team Providers Care Medicinal Plant Picker Name Role Phone Judith Lieberman APRN Primary Care Provider Unav ailable Angel Luis Sebastian Unavailable [phone] [facility] [place] Unavailable Unavailable Allergies No Known Allergies Results Component Value Reference Range Notes Schedule Confirmation Reviewed date:07/04/2025 03:47:36 PM Interpretation: Performing Lab: Notes/Report: CT Chest w/o Contrast CT Chest w/o Contrast diagno stic-[id number] Reviewed date:01/16/2025 03:09:53 PM Interpretation: Performing Lab: Notes/Report: See Below For Report CT Chest w/o Contrast Diagnosis Description: Solitary pulmonary nodule Read See Below For Report Schedule Confirmation Reviewed date:01/14/2025 03:29:20 PM Interpretation: Performing Lab: Notes/Report: CT Chest w/o Contrast Schedule Confirmation Reviewed date:01/15/2025 11:59:07 AM Interpretation: Performing Lab: Notes/Report: CT Chest w/o Contrast zzzPET Skull Base to [facility]--[id number] Reviewed date:08/14/2024 03:11:27 PM Interpretation: Performing Lab: Notes/Report: See Below For Report PET study was performed at [facility]. Read See Below For Report zzzPET Skull Base to [facility]--[id number] Reviewed date:08/14/2024 01:05:01 PM Interpretation: Performing Lab: Notes/Report: [id number] CT Chest w/o Contrast diagno stic-[id number] Reviewed date:01/15/2025 11:59:07 AM Interpretation: Performing Lab: Notes/Report: [id number] Reason For Referral Reason Solitary Pulm Nodule : [facility] - Scheduled Diagnosis 1 Solitary pulmonary n odule (R91.1) Referring Provider First Name Tawanda early Referring Provider Last Name SD Referring Provider [facility] Referred Organization [facility] Referred Provider Angel Luis Sebastian Referred Address [address] [place] [address] [address],[place], [place],[address], Referred Provider Specialty Pulmonary Di seases Referral [...] Name Tawanda early Referring Provider Last Name SD Referring Provider [facility] Referred Organization [facility] Referred Provider Angel Luis Sebastian Referred Address [address] [place] [address] [address],[place], [place],[address], Referred Provider Specialty Pulmonary Ramya corleyes Referral [...] W/U Status Risk Notes Problem Tobacco user (877181524) Nicotine dependence, cigarettes, uncomplicated (F17.210) Active confirmed Problem Tobacco user (123421479) Nicotine dependence, cigarettes, in remission (F17.211) Active confirmed Problem Solitary pulmonary nodule (951106046) Solitary pulmonary nodule (R91.1) Active confirmed Problem Radiology result abnormal (551968803) Abnormal chest CT (R93.89) Active confirmed Problem Chronic obstructive pulmonary disease (19558426) Stage 3 severe COPD by GOLD classification (J44.9) Active confirmed Problem Chronic respiratory failure (88319498) Chronic hypoxic respiratory failure (J96.11) Active confirmed [...] 01/15/2025 Encounters Encounter Location Date Provider Diagnosis [facility] [address] [place] [address] [place] [address] 01/15/2025 Angel Luisaracelis Ibarraoscar Solitary pulmonary nodule R91.1 ; Stage 3 severe COPD by GOLD classification J44.9 ; Chronic hypoxic respiratory failure J96.11 and Nicotine dependence, cigarettes, in remission F17.211 [facility] [address] [place] [address] 09/10/2024 Angel Luis Sebastian Solitary pulmonary nodule R91.1 ; Stage 3 severe COPD by GOLD classification J44.9 ; Chronic hypoxic respiratory failure J96.11 and Nicotine dependence, cigarettes, in remission F17.211 [facility] [address] [place] [address] 07/17/2025 [facility] [address] [place] [address] [place] [address] 01/08/2025 [facility] [address] [place] [address] 12/05/2024 [facility] [address] [place] [address] [place] [address] 11/22/2024 [facility] [address] [place] [address] 09/03/2024 [facility] [address] [place] [address] [place] [address] 08/28/2024 [facility] [address] [place] [address] 08/20/2024 [facility] [address] [place] [address] [place] [address] 08/15/2024 [facility] [address] [place] [address] [place] [address] 07/30/2024 [facility] [address] [place] [address] [place] [address] 07/27/2024 Angel Luis Sebastian Assessments Encounter Date [...] PET CT Skull Base to Mid Thigh ([facility]) 07/03/2024 Future Test Test Name Order Date CT Chest w/o Contrast diagnostic-[id number] 09/03/2024 Next Appt Details Provider Name:Angel Luis Sebastian, 10/16/2025 02:10:00 PM, [address] [place] [address] [place], [address], Insurance Providers Payer Name Payer Address Payer Phone Subscriber Number Group Number Insured Name Patient Relationship to Insured Coverage Start Date Coverage End Date [employer] [address] [place] [phone] [id number] [employer]I PRITCHARD Self - patient is the insured Medical (General) History Medical History History ICD Code Measles,Chicken Pox Pneumonioa Arthritis Venereal Disease Migraine Headaches HTN Asthma Stroke Surgical History Surgery Date(Month/Year) Fluid pocket cut off back Appendectomy Hospitalization History Reason Date(Month/Year) Multiple
--- OUTSIDE RECORDS SUMMARY | 2025-07-25 06:55 | XMS_ITS | Clinical Summary ---
Author Organization [facility] Address [address] [place] [address] Phone Care Team Providers Care Compensator Worker Name Role Phone Ellie Walker MD Primary Care Provider [phone] Allergies Active Allergy Reactions Criticality Noted Date [...] Breath. Active fluticasone propionate (FLONASE) 50 mcg/spray [place], Suspension nasal inhaler Administer 1 [place] in each nostril 2 times daily. Active [...] Department Care Team Description 06/02/2025 11:08 PM COAL UNLOADER - 06/03/2025 10:07 AM [facility] Emergency [facility] Emergency Medicine [address] [place] [address] Antonio Root MD Acute bronchitis, unspecified organism [...] PNEUM OCOCCAL CONJUGATE VACCINE 20-VALENT (PCV20), POLYSACCHARIDE [id number] CONJUGATE, ADJUVANT 0.5 ML (PF) IM 01/26/2024 [...] worry about transportation for future doctor visits, flower buncher or picker medication, etc.? No 2024 Housing Stability [...] on file Legal Sex Male 12:54 PM COAL UNLOADER Gender Identity Not on file Sexual Orientation Not on file Last Filed Vital Signs Vital Sign Reading Time Taken Comments Blood Pressure 134/68 06/03/2025 10:00 AM COAL UNLOADER Pulse 94 06/03/2025 10:00 AM COAL UNLOADER Temperature 36.6 C (97.9 F) 06/02/2025 11:12 PM COAL UNLOADER Respiratory Rate 20 06/03/2025 10:0 0 AM COAL UNLOADER Oxygen Saturation 99% 06/03/2025 10: 00 AM COAL UNLOADER Inhaled Oxygen Concentration - - Weight 53.4 kg (117 lb 12.8 oz) 025 11:12 PM COAL UNLOADER Height 162.6 cm (5' 4 ) 06/02/2025 11:1 2 PM COAL UNLOADER Body Mass Index 20.22 06/02/2025 11:12 PM COAL UNLOADER Plan of Treatment Health Maintenance Due Date [...] Aneurysm (A AA) Screening 2021 [place] Preventative Visit/Annual Wellness Visit 08/01/2024 DTAP/TDAP/TD VACCINES (5 - T d or Tdap) 12/06/2032 12/06/2022, 12/06/2022, 07/22/2017, Additional history exists PNEUMOCOCCAL VACCINE 50+ YEARS Completed 0 01/26/2024, 12/11/2018, 04/25/2017, Additional history exists INFLUENZA VACCINE Completed 05/01/2025 Procedures Procedure Name Priority Date/Time Associated Diagnosis Comments TROPONIN 2 HR, 5TH GEN Timed Study 06/03/2025 1:25 AM COAL UNLOADER XR CHEST PA OR AP 1 VW Stat 06/02/2025 11:48 PM COAL UNLOADER COVID-19 ANTIGEN Stat 06/02/2025 11:3 0 PM COAL UNLOADER INFLUENZA VIRUS A AND B, ANTIGEN DETECTION Stat 06/02/2025 11:30 PM COAL UNLOADER TROPONIN BASELINE, 5TH GEN Stat 06/02/2025 11:28 PM COAL UNLOADER LACTIC ACID Stat 06/02/2025 11:28 PM COAL UNLOADER BRAIN NATRIURETIC PEPTIDE, BNP OR PROBNP Stat 06/02/2025 11:28 PM COAL UNLOADER COMPREHENSIVE METABOLIC PANEL Stat 06/02/2025 11:28 PM COAL UNLOADER CBC WITH DIFFERENTIAL Stat 06/02/2025 11:28 PM COAL UNLOADER from Last 3 Months Results * (ABNORMAL) TROPONIN 2 HR, 5TH GEN (06/03/2025 1:25 AM COAL UNLOADER) TROPONIN T, 2 HR 5TH GEN 33(H) <=15 ng/L 06/03/2025 1:52 AM COAL UNLOADER [facility] DELTA 2HR TROPONIN T -2 See Interp. 06/03/2025 1:52 AM COAL UNLOADER [facility] Blood BLOOD SPECIMEN / Unknown Collection / Unknown 06/03/2025 1:25 AM COAL UNLOADER 06/03/2025 1:30 AM COAL UNLOADER Narrative [facility] - 06/03/2025 1:52 AM COAL UNLOADER Troponin elevated. Delta not changing. us Antonio Root MD CHEMISTRY ORDERABLES Fin al Result [facility] CLIA # [id number] [address] [place] [phone] * XR CHEST PA OR AP 1 VW (06/02/2025 11:48 PM COAL UNLOADER) Anatomical Region Laterality Modality Chest Computed Radiogr aphy 06/02/2025 11:4 8 PM COAL UNLOADER Impressions 06/03/2025 12:55 AM COAL UNLOADER IMPRESSION: No focal consolidation. Radiographic evidence of COPD. Narrative 06/03/2025 12:55 AM COAL UNLOADER EXAM: XR CHEST PA OR AP 1 [...] Result * COVID-19 ANTIGEN (06/02/2025 11:30 PM COAL UNLOADER) COVID-19 ANTIGEN Presumptive Negative Presumptive Negative 06/02/2025 11:56 PM COAL UNLOADER [facility] Upper Respiratory ANTERIOR NARES SWAB / Unknown Collection / Unknown 06/02/2025 11:30 PM COAL UNLOADER 06/02/2025 11:43 PM COAL UNLOADER [facility] - 06/02/2025 11:56 PM COAL UNLOADER Sherrie SARS antigen test has been authorized by FDA under an emergency use authorization (EUA) and has been authorized only for the detection of proteins from SARS-CoV-2 and influenza, not for any other viruses or pathogens. Sherrie SARS Antigen STAN is intended for the simultaneous qualitative detection and differentiation of nucleocapsid protein antigen from SARS-CoV-2 directly from nasopharyngeal (CHAR PULLER) and nasal (NS) swab specimens collected from [...] O RDERABLES Final Result Performing Organization Address [facility] Co de Phone Number [facility] [id number] [address] [place] [phone] * INFLUENZA VIRUS A AND B, ANTIGEN DETECTION (06/02/2025 11:30 PM COAL UNLOADER) Pathologist [facility] INFLUENZA A AG NOT DETECTED Not Detected 06/02/2025 11:57 PM COAL UNLOADER [facility] INFLUENZA B AG NOT DETECTED Not Detected 06/02/2025 11:57 PM COAL UNLOADER [facility] Upper Respiratory ENTIRE NASOPHARYNX / Unknown Collection / Unknown 06/02/2025 11:30 PM COAL UNLOADER 06/02/2025 11:43 PM COAL UNLOADER [facility] - 06/02/2025 11:57 PM COAL UNLOADER Negative results do not rule out infection. If clinically indicated, consider PCR testing which is more sensitive than antigen testing. If PCR testing is desired, consult with your local laboratory as sample recollection may be required. Antonio Root MD MICROBIOLOGY - GENERAL O RDERABLES Final Result Performing Organization Address [facility] Phone Number [facility] [id number] [address] [place] [phone] * (ABNORMAL) TROPONIN BASELINE, 5TH GEN (06/02/2025 11:28 PM COAL UNLOADER) TROPONIN T, BASELINE 5TH GEN 35(H) <=15 ng/L 06/03/2025 12:00 AM COAL UNLOADER [facility] Blood Collection / Unknown 06/02/2025 11:28 PM COAL UNLOADER 06/02/2025 11:43 PM COAL UNLOADER [facility] - 06/03/2025 12:00 AM COAL UNLOADER Troponin elevated. Antonio Root MD CHEMISTRY ORDERABLES Fin al Result [facility] # [id number] [address] [place] [phone] * LACTIC ACID (06/02/2025 11:28 PM COAL UNLOADER) Pathologist [facility] LACTIC ACID 1.4 <=2.0 mmol/L 06/02/2025 11:56 PM [facility] Blood BLOOD SPECIMEN / Unknown Collection / Unknown 06/02/2025 11:28 PM COAL UNLOADER 06/02/2025 11:43 PM COAL UNLOADER Antonio Root MD CHEMISTRY ORDERABLES Fin al Result Performing Organization Address [facility]/ZIP Co de Phone Number [facility] # [id number] [address] [place] [phone] * (ABNORMAL) CBC WITH DIFFERENTIAL (06/02/2025 11:28 PM COAL UNLOADER) Pathologist [facility] WBC 7.8 4.2 - 9.1 K/uL 06/02/2025 11:50 PM [facility] RBC 4.01(L) 4.63 - 6.08 M/uL 06/02/2025 11:50 PM [facility] HEMOGLOBIN 10.7(L) 13.7 - 17.5 g/dL 06/02/2025 11:50 PM [facility] HEMATOCRIT 34.9(L) 40.1 - 51.0 % 06/02/2025 11:50 PM [facility] MCV 87.0 79.0 - 92.2 fL 06/02/2025 11:50 PM [facility] MCH 26.7 25.7 - 32.2 pg 06/02/2025 11:50 PM [facility] MCHC 30.7(L) 32.3 - 36.5 g/dL 06/02/2025 11:50 PM [facility] RDW 13.0 11.0 - 14.5 % 06/02/2025 11:50 PM [facility] RDW-STDEV 41.0 36.9 - 56.9 fL 06/02/2025 11:50 PM [facility] PLATELETS 278 130 - 400 K/uL 06/02/2025 11:50 PM [facility] MPV 10.0 10.0 - 14.8 fL 06/02/2025 11:50 PM [facility] NEUTROPHILS 62 34 - 68 % 06/02/2025 11:50 PM [facility] LYMPHOCYTES 16(L) 22 - 53 % 06/02/2025 11:50 PM [facility] MONOCYTES 13(H) 5 - 12 % 06/02/2025 11:50 PM [facility] EOSINOPHILS 6 1 - 7 % 06/02/2025 11:50 PM [facility] BASOPHILS 1 0 - 1 % 06/02/2025 11:50 PM [facility] IMMATURE GRANULOCYTES 1 % 06/02/2025 11:50 PM [facility] NEUTROPHIL ABSOLUTE 4.85 1.78 - 5.38 K/uL 06/02/2025 11:50 PM [facility] LYMPHOCYTE ABSOLUTE 1.27 1.20 - 3.40 K/uL 06/02/2025 11:50 PM [facility] MONOCYTE ABSOLUTE 1.03(H) 0.30 - 0.82 K/uL 06/02/2025 11:50 PM [facility] EOSINOPHIL ABSOLUTE 0.48 0.04 - 0.54 K/uL 06/02/2025 11:50 PM [facility] BASOPHILS ABSOLUTE 0.08 0.01 - 0.08 K/uL 06/02/2025 11:50 PM [facility] IMMATURE GRANULOCYTES ABSOLUTE 0.06 K/uL 06/02/2025 11:50 PM [facility] Blood Collection / Unknown 06/02/2025 11:28 PM COAL UNLOADER 06/02/2025 11:43 PM COAL UNLOADER us Antonio Root MD HEMATOLOGY ORDERABLES Fi nal Result [facility] [id number] [address] [place] [phone] * (ABNORMAL) BRAIN NATRIURETIC PEPTIDE, BNP OR PROBNP (06/02/2025 11:28 PM COAL UNLOADER) PROBNP, N TERMINAL 130(H) 0 - 125 pg/mL 06/03/2025 12:00 AM [facility] Comment: INTERPRETIVE COMMENT based on [...] Blood Collection / Unknown 06/02/2025 11:28 PM COAL UNLOADER 06/02/2025 11:43 PM COAL UNLOADER Antonio Root MD CHEMISTRY ORDERABLES Fin al Result [facility] # [id number] [address] [place] [phone] * COMPREHENSIVE METABOLIC PANEL (06/02/2025 11:28 PM COAL UNLOADER) SODIUM 141 136 - 145 mmol/L 06/03/2025 12:00 AM [facility] POTASSIUM 3.9 3.5 - 5.1 mmol/L 06/03/2025 12:00 AM [facility] CHLORIDE 103 98 - 107 mmol/L 06/03/2025 12:00 AM [facility] CO2 29 22 - 29 mmol/L 06/03/2025 12:00 AM [facility] CALCIUM 9.4 8.8 - 10.2 mg/dL 06/03/2025 12:00 AM [facility] BUN 10 8 - 23 mg/dL 06/03/2025 12:00 AM [facility] CREATININE 0.99 0.67 - 1.17 mg/dL 06/03/2025 12:00 AM [facility] GLUCOSE 95 74 - 99 mg/dL 06/03/2025 12:00 AM [facility] TOTAL PROTEIN 6.7 6.6 - 8.7 g/dL 06/03/2025 12:00 AM [facility] ALBUMIN 4.0 3.5 - 5.2 g/dL 06/03/2025 12:00 AM [facility] BILIRUBIN TOTAL 0.2 0.0 - 1.2 mg/dL 06/03/2025 12:00 AM [facility] ALKALINE PHOSPHATASE 102 40 - 129 U/L 06/03/2025 12:00 AM [facility] AST 22 0 - 50 U/L 06/03/2025 12:00 AM [facility] ALT 12 0 - 50 U/L 06/03/2025 12:00 AM [facility] GFR >60 >=60 mL/min/1.7 3 sq meter 06/03/2025 12:00 AM [facility] Comment:eGFR calculated with 2020 CKD-EPI equation. Vegetarian diet, extremely high or low muscle mass, and may affect results. Cystatin C with Glomerular Filtration Rate is a suitable alternative for these patients. ANION GAP 9 5 - 20 mmol/L 06/03/2025 12:00 AM [facility] Blood Collection / Unknown 06/02/2025 11:28 PM COAL UNLOADER 06/02/2025 11:43 PM COAL UNLOADER us Antonio Root MD CHEMISTRY ORDERABLES Fin al Result [facility] CLIA # [id number] [address] [place] [phone] from Last 3 Months Insurance MEDICAID [place] [employer] [place] [facility] [place] [employer] Advance Directives For more information, please contact: [phone] * Full Code (Latest Code Status on [...] Non-Invasive (i.e. BiPAP, CPAP): Yes Care Teams Compensator Worker Relationship Specialty Start Date End Date Ellie Walker MD [address] [facility] [place] [phone] PCP - General Family Practice 09/06/24
[2025-07-25 08:51] LABS: Base Excess VBG 7.2 mmol/L (-3.0-3.0); Blood Gas Operator Identificat AMH; Blood Gas Sample Site Not specified; Blood Gas Sample Type Venous; HCO3 VBG 31.6 mmol/L (24-28); PCO2 VBG 43.3 mmHg (41-51); PO2 VBG 87.6 mmHg (25-40); Venous Blood Gas Hematocrit 31.3 % (42-52); pH VBG 7.47 (7.32-7.42)
[2025-07-25 08:52] LABS: Blood Gas LPM 1.5 %
--- NOTE | 2025-07-25 14:15 | PM.DCS ---
Discharge Providers Date of Admission: 07/24/25 15:29 Date of Discharge: July 25, 2025 Attending Provider at Admission: Rafa Hawkins MD Attending Provider at Discharge: Rafa Hawkins MD Primary Care Provider: Ellie Irene MD Diagnoses at Discharge Discharge Diagnosis 1. COPD with acute exacerbation: 2. Chronic hypoxemic respiratory failure: 3. CAD (coronary artery disease): 4. History of nicotine dependence: Reason for Visit Reason for Visit: SOB Brief History: 77 year old male with multiple myeloma Currently on Darzalex Velcade Revlimid and dexamethasone treatment SPEP March 13, 2025 shows paraprotein of 4.2 g/dL. Immunofixation shows IgG lambda. Reasnor light chain 47 and lambda light chain 26. CT chest January 06, 2025 shows expansile right lateral ninth rib lesion. Bilateral renal masses. More solid mass in the right upper pole right kidney concerning for complex cyst versus neoplasm. PET April 26, 2025 she has numerous FDG avid lesions throughout the bulb compatible with multiple myeloma. Left eighth rib fracture. Bone marrow biopsy done at [facility] May 03, 2025 with case number [id number] showed plasma cell myeloma with 80% light chain restricted plasma cell. Patient was seen by Dr. Leslie May 06. Recommend QUAD treatment. First cycle May 21, 2025. Complicated with renal insufficiency needed dialysis, respiratory failure, A-fib RVR. Discharged from hospital June 07, 2025 Patient received Darzalex and Velcade on June 18, 2025 and restarted Revlimid June 25, 2025. Patient currently had a 6 weekly Darzalex. Hospital Course Hospital Course Patient received inpatient treatment for acute COPD exacerbation. Patient produced copious secretions, by day 2. Functionally well. Discharged in stable condition with 5-day course of prednisone and azithromycin. Physical Exam Narrative: General: No apparent distress HENMT: normoceophalic Muskuloskeletal: Full ROM Respiratory: Normal respiratory effort, clear to auscultation bilaterally throughout all lung garcia, no use of accessory muscles Cardio: No JVD, regular rate, regular rhythm, S1 S2 normal, no murmurs, peripheral pulses 2+ radial palpated bilaterally Extremities: Full ROM, normal, normal capillary refill, no cyanosis or edema Neuro: Alert and oriented x4, no focal motor deficits Psych: Affect normal, denies suicidal ideation, mental status grossly normal Skin: No rashes or lesions noted, no wounds Discharge Data Studies Completed and Pending Completed Studies During Hospitalization Category Date Time Status XR chest 1V portable [id number] Stat Exams 07/24/25 12:41 Completed Pending at discharge Category Date Time Status Blood Culture Stat Lab 07/24/25 13:19 Results Complete Blood Count w/Auto AM LABS Lab 07/26/25 04:00 Ordered Complete Blood Count w/Auto AM LABS Lab 07/27/25 04:00 Ordered Comprehensive Metabolic Panel AM LABS Lab 07/26/25 04:00 Ordered Comprehensive Metabolic Panel AM LABS Lab 07/27/25 04:00 Ordered Radiology Impressions Chest X-Ray 07/24/25 12:41 Impression: Hyperinflation. Laboratory Results WBC 10.37 10^3/uL (3.29-11.43) 07/25/25 05:00 RBC 3.86 10^6/uL (3.85-5.65) 07/25/25 05:00 Hgb 10.10 g/dL (11.27-16.99) L 07/25/25 05:00 Hct 33.5 % (37-53) L 07/25/25 05:00 MCV 86.8 fl (82-101) 07/25/25 05:00 MCH 26.2 pg (27-33) L 07/25/25 05:00 MCHC 30.1 g/dL (30-55) 07/25/25 05:00 RDW 12.7 % (12.1-15.1) 07/25/25 05:00 Plt Count 375 10^3/cmm (157-399) 07/25/25 05:00 MPV 9.4 fL (7.4-10.4) 07/25/25 05:00 Neut % (Auto) 92.6 % 07/25/25 05:00 Lymph % (Auto) 4.1 % 07/25/25 05:00 [place] % (Auto) 2.5 % 07/25/25 05:00 Eos % (Auto) 0.0 % 07/25/25 05:00 Baso % (Auto) 0.2 % 07/25/25 05:00 Neut # (Auto) 9.61 10^3/uL (1.8-7.7) H 07/25/25 05:00 Lymph # (Auto) 0.4 10^3/uL (0.8-4.8) L 07/25/25 05:00 [place] # (Auto) 0.3 10^3/uL (0.2-0.9) 07/25/25 05:00 Eos # (Auto) 0.0 10^3/uL (0.0-0.8) 07/25/25 05:00 Baso # (Auto) 0.0 10^3/uL (0.0-0.1) 07/25/25 05:00 Nucleated RBC % (auto) 0 % 07/25/25 05:00 Nucleated RBCs # 0.0 /100WBC 07/25/25 05:00 Specimen Type Venous 07/25/25 08:39 Sample Site Not specified 07/25/25 08:39 ABG pH 7.43 (7.35-7.45) 07/24/25 12:41 ABG pCO2 50.1 mmHg (35-45) H 07/24/25 12:41 ABG pO2 61.3 mmHg (80.0-100.0) L 07/24/25 12:41 ABG HCO3 33.1 mmol/L (22-26) H 07/24/25 12:41 ABG O2 Saturation 92.2 07/24/25 12:41 ABG Base Excess 7.6 mmol/L (-2.0-2.0) H 07/24/25 12:41 Italo Test N/a 07/25/25 08:39 VBG pH 7.47 (7.32-7.42) H 07/25/25 08:39 VBG pCO2 43.3 mmHg (41-51) 07/25/25 08:39 VBG pO2 87.6 mmHg (25-40) H 07/25/25 08:39 VBG HCO3 31.6 mmol/L (24-28) H 07/25/25 08:39 VBG Base Excess 7.2 mmol/L (-3.0-3.0) H 07/25/25 08:39 VBG Hematocrit 31.3 % (42-52) L 07/25/25 08:39 A-a O2 Gradient 3.6 mmHg (5-10) L 07/24/25 12:41 Hematocrit 35.2 % (42-52) L 07/24/25 12:41 Hgb O2 Saturation 90.4 % (95-100) L 07/24/25 12:41 Carboxyhemoglobin 0.7 %THgb (0.4-20.1) 07/24/25 12:41 Methemoglobin 1.3 % (0.4-1.5) 07/24/25 12:41 Total Hemoglobin 11.5 g/dL (14-18) L 07/24/25 12:41 Sodium 138.0 mmol/L (131-143) 07/24/25 12:41 Potassium 4.0 mmol/L (3.5-5.0) 07/24/25 12:41 Glucose 128.0 mg/dL (70-115) H 07/24/25 12:41 Ionized Calcium 1.2 mmol/L (1.1-1.4) 07/24/25 12:41 O2 Delivery Device Nc 07/25/25 08:39 O2 Liters/Min 1.5 % 07/25/25 08:39 [employer] Duty [employer] ID Amh 07/25/25 08:39 Sodium 141 mmol/L (136-145) 07/25/25 05:00 Potassium 4.3 mmol/L (3.5-5.1) 07/25/25 05:00 Chloride 101 mmol/L (98-107) 07/25/25 05:00 Carbon Dioxide 35 mmol/L (22-29) H 07/25/25 05:00 Anion Gap 9.3 (5-19) 07/25/25 05:00 BUN 10 mg/dL (8-23) 07/25/25 05:00 Creatinine 0.7 mg/dL (0.7-1.2) 07/25/25 05:00 GFR Calculation 112.1 mL/min (90-130) 07/25/25 05:00 Glucose 205 mg/dL (65-115) H 07/25/25 05:00 Calculated Osmolality 297 mOsm/kg (285-295) H 07/25/25 05:00 Lactic Acid 1.6 mmol/L (0.5-2.2) 07/24/25 13:03 Calcium 9.8 mg/dL (8.5-10.5) 07/25/25 05:00 Magnesium 1.6 mg/dL (1.7-2.3) L 07/24/25 16:16 Total Bilirubin 0.2 mg/dL (0.15-1.2) 07/25/25 05:00 AST 8 U/L (0-40) 07/25/25 05:00 ALT 8 U/L (0-41) 07/25/25 05:00 Alkaline Phosphatase 75 U/L (40-130) 07/25/25 05:00 Troponin T Baseline 28 ng/L (0-15) H 07/24/25 13:03 Troponin T 60 Minute 24.60 ng/L (0-15) H 07/24/25 13:50 Delta Troponin T -3.40 ABS# (0-10) L 07/24/25 13:50 Troponin T Hi Sens 6Hr 19.72 ng/L (0-15) H 07/24/25 18:46 Troponin T Hi Sens 6Hr Delta -8.28 ng/L (0-12) L 07/24/25 18:46 C-Reactive Protein 123.8 mg/L (0.0-4.9) H 07/24/25 13:03 NT-Pro-B Natriuret Pep 162 pg/mL (0-125) H 07/24/25 13:03 Total Protein 6.5 g/dL (6.6-8.7) L 07/25/25 05:00 Albumin 3.2 g/dL (3.5-5.2) L 07/25/25 05:00 Globulin 3.3 g/dL (1.3-4.6) 07/25/25 05:00 Influenza A (PCR) Negative (Negative) 07/24/25 13:14 Influenza Type B (PCR) Negative (Negative) 07/24/25 13:14 RSV (PCR) Negative (Negative) 07/24/25 13:14 SARS-CoV-2 (PCR) Negative (Negative) 07/24/25 13:14 Vitals Last Vital Signs Temp 98.0 F 07/25/25 11:13 Pulse 84 07/25/25 11:34 Resp 16 07/25/25 11:34 BP 115/70 07/25/25 11:13 Pulse Ox 96 07/25/25 11:34 O2 Del Method Nasal Cannula 07/25/25 11:34 O2 Flow Rate 1.5 07/25/25 11:34 Discharge Plan Discharge Patient Disposition: Home Condition: Stable Prescriptions: New prednisone 20 mg Tablet 40 mg PO DAILY 5 Days Qty: 10 0RF azithromycin 500 mg tablet See Rx Instructions .ROUTE .COMPLEX Qty: 3 0RF Rx Instructions: For 250 mg dose pack: take 500 mg today (day 1), then 250 mg for 4 days (days 2-5) Continued isosorbide mononitrate 30 mg tablet extended release 24 hr 30 mg PO DAILY Qty: 90 3RF metoprolol succinate 25 mg tablet extended release 24 hr 12.5 mg PO DAILY Qty: 45 3RF nitroglycerin 0.4 mg tablet, sublingual 0.4 mg sublingual Q5M PRN (Reason: chest pain) Qty: 25 2RF Rx Instructions: do not exceed 3 doses per episode aspirin 81 mg Tablet,Delayed Release (Dr/Ec) 81 mg PO DAILY tamsulosin 0.4 mg Capsule 0.4 mg PO QPM trazodone 100 mg Tablet 200 mg PO BEDTIME polyethylene glycol 3350 [Miralax] 17 gram/dose Powder 17 g PO DAILY food supplemt, lactose-reduced Liquid 1 ea PO QID omega 2-gik-luh-fish oil [Fish Oil] 1,000 (120-180) mg Capsule 1 cap PO BID Combivent Respimat 20-100 mcg/actuation Mist 1 puff INHALATION QID Rx Instructions: space evenly during waking hours levocarnitine 500 mg Capsule 500 mg PO QAM Rx Instructions: must administer with a meal/food albuterol sulfate 90 mcg/actuation HFA aerosol inhaler 2 inh inhalation QID PRN (Reason: shortness of breath or wheezing) melatonin 5 mg Tablet 10 mg PO DAILY amlodipine 5 mg tablet 5 mg PO DAILY guaifenesin 400 mg Tablet 400 mg PO TID omeprazole 20 mg Tablet,Delayed Release (Dr/Ec) 20 mg PO BID Breztri Aerosphere 160-9-4.8 mcg/actuation HFA aerosol inhaler 2 inh inhalation BID Qty: 10.7 1RF ipratropium-albuterol 0.5 mg-3 mg(2.5 mg base)/3 mL Solution For Nebulization 3 ml INHALATION QID MDD COPD PRN (Reason: Shortness Of Breath Or Wheezing) docusate sodium 100 mg Capsule 100 mg PO BID PRN (Reason: Constipation) cholecalciferol (vitamin D3) [Vitamin D3] 25 mcg (1,000 unit) Capsule 25 mcg PO DAILY dextromethorphan-guaifenesin 10-100 mg/5 mL Syrup 10 ml PO Q4H Qty: 237 1RF Referrals: Ellie Irene MD [Primary Care Provider, [facility]] Discharge Diet: Usual diet and Low Cholesterol Patient Instructions: COPD (Chronic Obstructive Pulmonary Disease) (DC), Opioid Safety, Patient Portal & Sarah Instructions Discharge Attestations Time Spent in Discharge Care*: greater than 30 min Status at Discharge: Cognitive status at discharge: cognitively intact, Behavioral status at discharge: cooperative, Quality Metrics Clinical Quality Measures [ No reported AMI, CVA or VTE this stay] Coding Level of Care Code 18503 Diagnoses COPD with acute exacerbation J44.1 Chronic hypoxemic respiratory failure J96.11 CAD (coronary artery disease) I25.10 History of nicotine dependence Z87.891
--- NOTE | 2025-07-25 18:13 | PC.NURSE ---
Discussed discharge medications, stopped medications, COPD Stoplight and follow up appointments with patient. Patient verbalized understanding
== END 2025-07-25 13:30 | disposition home or self-care (01) ==
LOC: ER 16:00 → MEDSURG 23:44
PROVIDERS: Clinical Nurse Specialist Acute Care; Admitting Provider Internal Medicine; Emergency Provider Emergency Medicine; PCP Family Medicine; Visit Provider Internal Medicine
DX: J44.1 Chronic obstructive pulmonary disease with (acute) exacerbation (principal); J96.11 Chronic respiratory failure with hypoxia; I25.10 Atherosclerotic heart disease of native coronary artery without angina pectoris; Z87.891 Personal history of nicotine dependence; K21.9 Gastro-esophageal reflux disease without esophagitis; Z79.82 Long term (current) use of aspirin; I10 Essential (primary) hypertension; I25.2 Old myocardial infarction
CPT/HCPCS: 36415; 36600; 71045; 80051; 80053; 82330; 82803; 82805; 83605; 83735; 83880; 84484; 85025; 86140; 87040; 87637; 93005; 94640; G0378; J2470; J2919; J3490; J7512; J7613; J9999

== ENCOUNTER → 2025-07-31 07:38 | Outpatient (BNVA) | payer OTHER, SELFPAY | PROVIDERS: PCP Family Medicine; Visit Provider Podiatrist Foot & Ankle Surgery | DX: I73.9 Peripheral vascular disease, unspecified (principal); L60.3 Nail dystrophy | CPT/HCPCS: 11721; 99204 ==